=== PATIENT | male | born 1960 | race African-American/Black ===

== ENCOUNTER 2023-02-05 21:28 | Inpatient (IN) | payer OTHER, SELFPAY ==
--- OUTSIDE RECORDS SUMMARY | 2023-02-05 21:32 | XMS REPORT | Continuity of Care Document ---
Author Name Unknown Address [address] [facility] [address] [place] [address] [facility] Address [address] [facility] [address] [place] [address] Care Team Providers Care Senior Network Systems Engineer Name Role Phone Nori Elias Attending Clinician Unavailable Rico RUSSELL, Yohannes Luna Attending Clinician Doctor Unassigned, [place] [address] Attending Clinician U navailable Encounters Start Date/Time End Date/Time Encounter Type Admission Type Attending Clinicians Care Facility Care Department Encounter ID Source 2023-01-29 11:37:19 2023-01-29 11:37:19 Outpatient [facility] [id number] 2019-10-10 00:00:00 2019-10-10 00:00:00 Patient Outreach Nori Elias [facility] [id number] 2019-10-02 11:53:41 2019-10-02 12:26:55 Office Visit Yohannes Gómez [facility] [id number] 2019-10-02 00:00:00 2019-10-02 00:00:00 Orders Only Doctor Unassigned, [place] [facility] [facility] [id number]
[2023-02-05] MEDS ORDERED: HYDROCODONE/APAP 5/325 MG TAB ONE (21:41)
[2023-02-05 22:41] LABS: Absolute Lymphocytes (CBC) 1.6 K/uL (0.7-4.9); Hematocrit 31.2 % (39.6-49.0); MCV 82.7 fL (80-100); Platelets 167 thou/uL (152-406); RBC Red Blood Cell Count 3.77 M/uL (4.33-5.43)
[2023-02-05 22:43] LABS: ALT/SGPT 17 U/L (16-61); AST/SGOT 12 U/L (15-37); Albumin 3.1 g/dL (3.4-5.0); Alkaline Phosphatase 69 U/L (45-117); BUN Blood Urea Nitrogen 85 mg/dL (7-18); Bicarbonate 25 mEq/L (21-32); Bilirubin Total 0.3 mg/dL (0.2-1.0); Glomerular Filtration Rate 6 ml/min (=/>90); Glucose Level 84 mg/dL (74-106); Potassium 4.7 mEq/L (3.5-5.1); Protein, Total 7.2 g/dL (6.4-8.2); Sodium Level 140 mEq/L (136-145)
[2023-02-05 22:46] LABS: Bilirubin Direct < 0.1 mg/dL (0-0.2); Bilirubin Indirect, Calculated ND mg/dL (0.2-0.8)
[2023-02-05] MEDS ORDERED: HYDRALAZINE HCL 20 MG/ML VIAL ONE (23:14)
[2023-02-05] MEDS ORDERED: NA CHLORIDE 0.9% 1,000 ML ONE (23:15)
[2023-02-05 23:28] LABS: Creatine Phosphokinase 425 U/L (39-308); NT PRO-BNP 2988 pg/mL (<125)
[2023-02-05 23:31] LABS: C-Reactive Protein < 2.90 mg/L (<3.00)
[2023-02-05 23:33] LABS: Troponin High Sensitivity 248.5 pg/mL (<58.9)
--- NOTE | 2023-02-05 23:48 | ER ---
Nurse's Notes [facility] Name: Zander Melvin Age: 62 yrs Sex: Male : 1960 Arrival Date: 02/05/2023 Time: 21:28 Bed 5 Private MD: Diagnosis: Acute diastolic (congestive) heart failure;Facial lesion, Elevated Troponin, Hypertensive Emergency, Acute on chronic renal insufficiency Presentation: 02/05 21:37 Chief complaint: Patient states: lesion to face that has been there for 4 months but as6 tonight started bleeding. Coronavirus screen: At this time, the client does not indicate any symptoms associated with coronavirus-19. Ebola Screen: No symptoms or risks identified at this time. Initial Sepsis Screen: Does the patient meet any 2 criteria? No. Patient's initial sepsis screen is negative. Does the patient have a suspected source of infection? No. Patient's initial sepsis screen is negative. Risk Assessment: Do you want to hurt yourself or someone else? Patient reports no desire to harm self or others. Onset of symptoms was February 05, 2023. 21:37 Method Of Arrival: Ambulatory as6 21:37 Acuity: JAMES 3 as6 Historical: - Allergies: 21:39 No Known Allergies; as6 - PMHx: 21:39 Hypertensive disorder; as6 - PSHx: 21:39 None; as6 - Immunization history:: Adult Immunizations up to date. - Social history:: Smoking status: Patient reports the use of cigarette tobacco products, smokes one-half pack cigarettes per day. - Family history:: not pertinent. Screenin:26 [facility] ED Fall Risk Assessment (Adult) History of falling in the last 3 months, me1 including since admission No falls in past 3 months (0 pts) Confusion or Disorientation No (0 pts) Intoxicated or Sedated No (0 pts) Impaired Gait No (0 pts) Mobility Assist Device Used No (0 pt) Altered Elimination No (0 pt) Score/Fall Risk Level 0 - 2 = Low Risk Maintained a safe environment, Provided non-skid footwear, Hourly rounding (assess needs \T\ fall precautionary measures) done. Abuse screen: Denies threats or abuse. Nutritional screening: No deficits noted. Tuberculosis screening: No symptoms or risk factors identified. Assessment: 22:26 General: Appears comfortable, well developed, well nourished, Behavior is calm, me1 cooperative, appropriate for age, Reports lesion to left face that has been there for 4 month. States the lesion has grown more recently and today it started to bleed. Pain: Complains of pain in left jaw Pain does not radiate. Pain currently is 2 out of 10 on a pain scale. Quality of pain is described as throbbing, Pain began gradually, over the past 4 months. Neuro: Level of Consciousness is awake, alert, obeys commands, Oriented to person, place, time, situation, Appropriate for age. Cardiovascular: Capillary refill < 3 seconds Patient's skin is warm and dry. Respiratory: Airway is patent Respiratory effort is even, unlabored, Respiratory pattern is regular, symmetrical. Derm: lesion to left face, red, swollen, scant amount of bleeding noted. 02/06 00:00 Reassessment: Patient appears in no apparent distress at this time. No changes from [facility] previously documented assessment. Patient and/or family updated on plan of care and expected duration. Pain level reassessed. Patient is alert, oriented x 3, equal unlabored respirations, skin warm/dry/pink. 01:00 Reassessment: Patient appears in no apparent distress at this time. No changes from [facility] previously documented assessment. Patient and/or family updated on plan of care and expected duration. Pain level reassessed. Patient is alert, oriented x 3, equal unlabored respirations, skin warm/dry/pink. 02:00 Reassessment: Patient appears in no apparent distress at this time. Patient and/or jw7 family updated on plan of care and expected duration. Pain level reassessed. Patient is alert, oriented x 3, equal unlabored respirations, skin warm/dry/pink. 03:00 Reassessment: Patient appears in no apparent distress at this time. Patient and/or jw7 family updated on plan of care and expected duration. Pain level reassessed. Patient is alert, oriented x 3, equal unlabored respirations, skin warm/dry/pink. 04:00 Reassessment: Patient appears in no apparent distress at this time. Patient and/or jw7 family updated on plan of care and expected duration. Pain level reassessed. Patient is alert, oriented x 3, equal unlabored respirations, skin warm/dry/pink. 05:00 Reassessment: Patient appears in no apparent distress at this time. Patient and/or jw7 family updated on plan of care and expected duration. Pain level reassessed. Patient is alert, oriented x 3, equal unlabored respirations, skin warm/dry/pink. 06:09 Reassessment: Patient appears in no apparent distress at this time. Patient and/or jw7 family updated on plan of care and expected duration. Pain level reassessed. Patient is alert, oriented x 3, equal unlabored respirations, skin warm/dry/pink. Vital Signs: 02/05 21:37 Pulse 67; Resp 18 S; Temp 98.8(TE); Pulse Ox 97% on R/A; Weight 104.33 kg (R); Height 5 as6 ft. 11 in. (R); Pain 7/10; 21:39 BP 218 / 125; as6 23:05 BP 225 / 112; Pulse 51; Resp 17; Pulse Ox 100% ; jj7 02/06 00:00 BP 222 / 102; Pulse 58; Resp 16 S; Pulse Ox 99% on R/A; jw7 01:15 BP 158 / 89; Pulse 60; Resp 18 S; Pulse Ox 98% on R/A; jw7 02:00 BP 208 / 95; Pulse 78; Resp 20 S; Pulse Ox 96% on R/A; jw7 02/05 21:37 Body Mass Index 32.08 (104.33 kg, 180.34 cm) as6 02/05 21:37 Pain Scale: Adult as6 Keira Coma Score: 01:58 Eye Response: spontaneous(4). Motor Response: obeys commands(6). Verbal Response: sp4 oriented(5). Total: 15. NIH Stroke Scale Scores: 01:58 NIHSS Score: 0 sp4 ED Course: 02/05 21:31 Patient arrived in ED. jj6 21:32 Vin Washburn MD is Attending Physician. sp4 21:39 Triage completed. as6 21:39 Arm band placed on. as6 21:49 Basic Metabolic Panel Sent. as6 21:49 CBC with Diff Sent. as6 21:49 LFT's Sent. as6 21:49 Inserted saline lock: 20 gauge in right antecubital area, using aseptic technique. as6 Blood collected. 22:13 Melvi Medina, RN is Primary Nurse. me1 22:26 Patient has correct armband on for positive identification. Bed in low position. Call me1 light in reach. Side rails up X 1. Provided Education on: POC. Verbalized understanding.. 22:26 No provider procedures requiring assistance completed. me1 23:05 Soft Tissue Neck Wo Contr In Process Unspecified. EDMS 23:06 Facial Bones W/ Mpr In Process Unspecified. EDMS 23:35 Notified ED physician of a critical lab result(s). troponin 248.5. Notified Dr radha Washburn. 23:44 Bijan Oliva MD is Hospitalizing Provider. sp4 23:49 Urinalysis W/Microscopic Sent. me1 02/06 00:05 Chest Single View XRAY In Process Unspecified. EDMS 03:19 Slides for Pathologist Review Sent. jw7 03:20 Repeat lab(s) drawn. by wv, sent to lab. jw7 06:16 Patient admitted, IV remains in place. jw7 Administered Medications: 02/05 21:44 Drug: HYDROcodone-acetaminophen PO 5 mg-325 mg 2 tabs PO once Route: PO; as6 22:25 Follow up: Response: No adverse reaction; Pain is decreased me1 23:18 Drug: NS 0.9% IV 1000 ml IV at 1 bolus Per protocol; 1000 mL bolus Route: IV; Rate: 1 jj7 bolus; Site: right antecubital; 02/06 06:17 Follow up: IV Status: Completed infusion; IV Intake: 1000ml jw7 02/05 23:19 Drug: hydrALAZINE IVP 20 mg IVP once Route: IVP; Site: right antecubital; jj7 02/06 00:48 Drug: Aspirin PO Chewable Tablet 324 mg PO once; 81 mg tablets x 4 Route: PO; jw7 06:17 Follow up: Response: No adverse reaction jw7 00:48 Drug: amLODIPine PO 10 mg PO once Route: PO; jw7 06:17 Follow up: Response: No adverse reaction jw7 00:48 Drug: niCARdipine IV 5 mg/hr IV at calculated rate See Administration Instructions; jw7 (Standard concentration 25 mg / 250 mL NS); Recommended max rate 15 mg/hr; Titrate 2.5 mg/hr as often as every 15 minutes to achieve goal (see titration policy); Goal parameter SBP less than 160 mmHg Route: IV; Rate: calculated rate; Site: right antecubital; 06:17 Follow up: Response: No adverse reaction; IV Status: Infusion continued upon admission; jw7 IV Intake: 200ml 01:31 Drug: Lidocaine Infiltration (1 %) 20 ml 20 ml Infiltration once; to bedside Volume: 20 jw7 ml; Route: Infiltration; 06:18 Follow up: Response: No adverse reaction jw7 Medication: 02/05 22:26 VIS not applicable for this client. me1 Intake: 02/06 06:17 IV: 1000ml; Total: 1000ml. jw7 06:17 IV: 200ml; Total: 1200ml. jw7 Outcome: 02/05 23:47 Decision to Hospitalize by Provider. sp4 02/06 06:16 Admitted to ICU accompanied by nurse, via stretcher, room 2, on monitor, with chart, jw7 Condition: stable Instructed on the need for admit, Demonstrated understanding of instructions, 06:18 Patient left the ED. jw7 NIH Stroke Scale - NIH Stroke Score Date: 02/06/2023 Time: 01:58 Total Score = 0 10. Dysarthria (speech clarity - read or repeat words) - 0(Normal) 11. Extinction and Inattention (visual/tactile/auditory/spatial/personal) - 0(No abnormality) 1a. Level of Consciousness (LOC) - 0(Alert) 1b. Level of Consciousness (LOC) (Month \T\ Age) - 0(Both) 1c. LOC Commands (Open \T\ Closes Eyes/Siebel Developer) - 0(Both) 2. Best Gaze (Lateral Gaze Paresis) - 0(Normal) 3. Visual Field Loss - 0(No visual loss) 4. Facial Palsy - 0(Normal) 5a. Left Arm: Motor (10-second hold) - 0(No drift) 5b. Right Arm: Motor (10-second hold) - 0(No drift) 6a. Left Leg: Motor (5-second hold - always test supine) - 0(No drift) 6b. Right Leg: Motor (5-second hold - always test supine) - 0(No drift) 7. Limb Ataxia (finger/nose \T\ heel/chinchilla - test with eyes open) - 0(Absent) 8. Sensory Loss (pinprick arms/legs/face) - 0(Normal) 9. Best Language: Aphasia (description/naming/reading) - 0(No aphasia) Initials: sp4 Signatures: Dispatcher [employer] ED Adina Teresa jj6 Dale Perera RN RN as6 Iris Chow RN RN jw7 Dax Parsons RN RN jj7 Vin Washburn MD MD sp4 Melvi Medina RN RN me1 Corrections: (The following items were deleted from the chart) 02/05 22:26 21:37 Chief complaint: Patient states: lesion to face that has been there for 4 me1 months but tonight started bleeding as6 02/06 01:40 01:37 General: Systolic BP 158, decreased . jw7 jw7 06:08 01:37 General: Systolic BP 158, decreased niCARdipine drip to 2.5mg/hr, jw7 Provider notified. . jw7
--- NOTE | 2023-02-05 23:48 | EDPHYS ---
Physician Documentation [facility] Name: Zander Melvin Age: 62 yrs Sex: Male : 1960 Arrival Date: 02/05/2023 Time: 21:28 Bed 5 Private MD: ED Physician Vin Washburn HPI: 02/05 21:32 This 62 yrs old Black Male presents to ER via Unassigned with complaints of Abscess. sp4 23:47 82-year-old male presents with complaint of left facial lesion. Patient states left sp4 facial moderate size lesion has been present for the past 4 months. Patient did see a medical professional in the past at a clinic locally and was informed that this this cannot be resected at the clinic. On presentation patient also has elevated blood pressure 25/112. Patient states that he has not been managing his blood pressure for several years . . Historical: - Allergies: 21:39 No Known Allergies; as6 - PMHx: 21:39 Hypertensive disorder; as6 - PSHx: 21:39 None; as6 - Immunization history:: Adult Immunizations up to date. - Social history:: Smoking status: Patient reports the use of cigarette tobacco products, smokes one-half pack cigarettes per day. - Family history:: not pertinent. ROS: 23:47 Constitutional: Negative for fever, chills, and weight loss, positive for left facial sp4 lesion, positive for uncontrolled blood pressure. 23:47 All other systems are negative, Exam: 23:47 Constitutional: This is a well developed, well nourished patient who is awake, alert, sp4 and in no acute distress. Head/Face: Normocephalic, atraumatic. 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 There is some tissue fluid leakage from the lesion. Lesion is friable and easily leaks tissue fluid in small amounts Eyes: Pupils equal round and reactive to light, extra-ocular motions intact. Lids and lashes normal. Conjunctiva and sclera are not injected. Cornea within normal limits. Periorbital areas with no swelling, redness, or edema. ENT: Nares patent. No nasal discharge, no septal abnormalities noted. Tympanic membranes are normal and external auditory canals are clear. Oropharynx with no redness, swelling, or masses, exudates, or evidence of obstruction, uvula midline. Mucous membranes moist. Neck: Trachea midline, no thyromegaly or masses palpated, and no cervical lymphadenopathy. Supple, full range of motion without nuchal rigidity, or vertebral point tenderness. Chest/axilla: Normal chest wall appearance and motion. Nontender with no deformity. No lesions are appreciated. Cardiovascular: Regular rate and rhythm with a normal S1 and S2. No gallops, murmurs, or rubs. Normal PMI, no JVD. No pulse deficits. Respiratory: Lungs have equal breath sounds bilaterally, clear to auscultation and percussion. No rales, rhonchi or wheezes noted. No increased work of breathing, no retractions or nasal flaring. Abdomen/GI: Soft, non-tender, with normal bowel sounds. No distension or tympany. No guarding or rebound. No evidence of tenderness throughout. Back: No spinal tenderness. No costovertebral tenderness. Skin: Warm, dry with normal turgor. Normal color with no rashes, no lesions, and no evidence of cellulitis. MS/ Extremity: Pulses equal, no cyanosis. Neurovascular intact. Full, normal range of motion. Neuro: Awake and alert, GCS 15, oriented to person, place, time, and situation. Cranial nerves II-XII grossly intact. Motor strength 5/5 in all extremities. Sensory grossly intact. Psych: Awake, alert, with orientation to person, place and time. Behavior, mood, and affect are within normal limits 02/06 01:58 ECG was reviewed by the Attending Physician. 00;05 there is sinus bradycardia at the sp4 rate of 54, no ST elevation or depression, left ventricular hypertrophy Vital Signs: 02/05 21:37 Pulse 67; Resp 18 S; Temp 98.8(TE); Pulse Ox 97% on R/A; Weight 104.33 kg (R); Height 5 as6 ft. 11 in. (R); Pain 08/21; 21:39 BP 218 / 125; as6 23:05 BP 225 / 112; Pulse 51; Resp 17; Pulse Ox 100% ; jj7 02/06 00:00 BP 222 / 102; Pulse 58; Resp 16 S; Pulse Ox 99% on R/A; jw7 01:15 BP 158 / 89; Pulse 60; Resp 18 S; Pulse Ox 98% on R/A; jw7 02:00 BP 208 / 95; Pulse 78; Resp 20 S; Pulse Ox 96% on R/A; jw7 02/05 21:37 Body Mass Index 32.08 (104.33 kg, 180.34 cm) as6 02/05 21:37 Pain Scale: Adult as6 NIH Stroke Scale Scores: 01:58 NIHSS Score: 0 sp4 [place]e Coma Score: 01:58 Eye Response: spontaneous(4). Motor Response: obeys commands(6). Verbal Response: sp4 oriented(5). Total: 15. Procedures: 01:36 Performed Removal of left facial tumor. . 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 Tumor potentially cancerous. The tumor is friable and is losing tissue fluid. Patient has consented to surface portion of the tumor removal without root removal. Patient was advised that tumor potentially has a rolled under the skin which needs to be resected later by plastic surgeon. Patient willingly requested removal of the surface portion of the tumor. Patient was given written consent. Patient was prepped and draped in sterile fashion. The area around the stalk was anesthetized with lidocaine 1% without epinephrine. The left side of the patient's rivas was trimmed with clippers. The stalk was tied off with silk suture 3-0. The tumor was removed with scalpel. The stalk itself was resected. Small skin laceration 1 cm long was then sutured with 3-0 silk sutures x 4 simple interrupted sutures. Good cosmetic result. Tumor was labeled in a specimen cup and sent to pathology. Tolerated procedure without complications. . MDM: 02/05 21:32 Patient medically screened. sp4 23:55 Differential diagnosis: abscess, allergic reaction, cellulitis, insect bite. Data sp4 reviewed: vital signs, nurses notes, lab test result(s), EKG, radiologic studies, CT scan, plain films. 02/06 01:36 Consideration of Admission/Observation Patient was admitted/placed on observation. sp4 Escalation of care including admission/observation considered. Management of patient was discussed with the following: Hospitalist: Discussed with Dr. Oliva being hospitalist. Discussed also with Dr. Riddle Wrecking Crane Engine Operator who accepted patient for consult. Discussed with Dr. Dorota Javier with Nephrology who will see patient in the morning.. ED course: Patient warrants ICU admission on nicardipine infusion. . 02/05 21:39 Order name: Basic Metabolic Panel; Complete Time: 22:55 sp4 02/05 21:39 Order name: CBC with Diff [facility] 02/05 21:39 Order name: LFT's; Complete Time: 22:55 4 02/05 22:57 Order name: Urinalysis W/Microscopic [facility] 02/05 23:02 Order name: BNP; Complete Time: 23:34 4 02/05 23:02 Order name: Troponin High Sensitivity; Complete Time: 23:34 4 02/05 23:02 Order name: CK; Complete Time: 23:34 4 02/05 23:02 Order name: CRP; Complete Time: 23:34 [facility] 02/05 23:09 Order name: T4 Free; Complete Time: 23:34 [facility] 02/05 23:09 Order name: Thyroid Stimulating Hormone; Complete Time: 23:34 [facility] 02/06 01:50 Order name: Basic Metabolic Panel [facility] 02/06 01:50 Order name: Basic Metabolic Panel [facility] 02/06 01:50 Order name: CBC with Automated Diff [facility] 02/06 01:50 Order name: CBC with Automated Diff [facility] 02/06 01:50 Order name: Magnesium [facility] 02/06 01:50 Order name: Magnesium [facility] 02/06 01:50 Order name: Phosphorus [facility] 02/06 01:50 Order name: Phosphorus [facility] 02/06 01:50 Order name: Troponin High Sensitivity [facility] 02/06 01:50 Order name: Troponin High Sensitivity [facility] 02/06 01:50 Order name: Troponin High Sensitivity [facility] 02/06 01:50 Order name: Troponin High Sensitivity [facility] 02/06 02:11 Order name: Slides for Pathologist Review [facility] 02/05 23:03 Order name: Facial Bones W/ Mpr [facility] 02/05 23:05 Order name: Soft Tissue Neck Wo Contr [facility] 02/05 23:55 Order name: Chest Single View XRAY [facility] 02/06 01:54 Order name: Renal Ultrasound-Complete [facility] 02/05 23:02 Order name: EKG; Complete Time: 23:03 [facility] 02/06 01:50 Order name: CONS Physician Consult [facility] 02/06 02:00 Order name: Cytology Orders [facility] 02/05 21:39 Order name: IV Saline Lock; Complete Time: 21:49 sp4 02/05 21:39 Order name: Labs collected and sent; Complete Time: 21:49 sp4 02/05 21:39 Order name: O2 Per Protocol; Complete Time: 22:30 sp4 02/05 21:39 Order name: O2 Sat Monitoring; Complete Time: 22:30 sp4 02/05 23:02 Order name: EKG - Nurse/Tech; Complete Time: 00:10 sp4 02/06 00:06 Order name: Dressing - Wound; Complete Time: 01:4 02/06 00:06 Order name: Gloves, Sterile; Complete Time: 01: sp4 02/06 00:06 Order name: Setup Suture Tray; Complete Time: : sp4 02/06 00:08 Order name: Surgical Consent; Complete Time: 00:48 sp4 EC:58 Rate is 54 beats/min. Rhythm is regular, Sinus bradycardia. QRS [place] is Normal. [place] sp4 interval is normal. QRS interval is normal. QT interval is normal. No Q waves. T waves are Normal. No ST changes noted. Clinical impression: No evidence of ischemia. Interpreted by me. Reviewed by me. Administered Medications: 02/05 21:44 Drug: HYDROcodone-acetaminophen PO 5 mg-325 mg 2 tabs PO once Route: PO; as6 22:25 Follow up: Response: No adverse reaction; Pain is decreased me1 23:18 Drug: NS 0.9% IV 1000 ml IV at 1 bolus Per protocol; 1000 mL bolus Route: IV; Rate: 1 jj7 bolus; Site: right antecubital; 02/06 06:17 Follow up: IV Status: Completed infusion; IV Intake: 1000ml jw7 02/05 23:19 Drug: hydrALAZINE IVP 20 mg IVP once Route: IVP; Site: right antecubital; jj7 02/06 00:48 Drug: Aspirin PO Chewable Tablet 324 mg PO once; 81 mg tablets x 4 Route: PO; jw7 06:17 Follow up: Response: No adverse reaction jw7 00:48 Drug: amLODIPine PO 10 mg PO once Route: PO; jw7 06:17 Follow up: Response: No adverse reaction jw7 00:48 Drug: niCARdipine IV 5 mg/hr IV at calculated rate See Administration Instructions; jw7 (Standard concentration 25 mg / 250 mL NS); Recommended max rate 15 mg/hr; Titrate 2.5 mg/hr as often as every 15 minutes to achieve goal (see titration policy); Goal parameter SBP less than 160 mmHg Route: IV; Rate: calculated rate; Site: right antecubital; 06:17 Follow up: Response: No adverse reaction; IV Status: Infusion continued upon admission; jw7 IV Intake: 200ml 01:31 Drug: Lidocaine Infiltration (1 %) 20 ml 20 ml Infiltration once; to bedside Volume: 20 jw7 ml; Route: Infiltration; 06:18 Follow up: Response: No adverse reaction jw7 Disposition Summary: 02/05/23 23:47 Hospitalization Ordered Notes: Hospitalization Status: Inpatient Admission sp4 Provider: Bijan Oliva4 Location: Intensive Care Unit sp4 Condition: Serious sp4 Problem: new sp4 Symptoms: have improved sp4 Bed/Room Type: Standard sp4 Room Assignment: 2-(02/06/23 04:32) rv1 Diagnosis - Acute diastolic (congestive) heart failure sp4 - Facial lesion, Elevated Troponin, Hypertensive Emergency, Acute on chronic renal sp4 insufficiency Forms: - Medication Reconciliation Form sp4 - SBAR form sp4 - Leadership Thank You Letter sp4 NIH Stroke Scale - NIH Stroke Score Date: 02/06/2023 Time: 01:58 Total Score = 0 10. Dysarthria (speech clarity - read or repeat words) - 0(Normal) 11. Extinction and Inattention (visual/tactile/auditory/spatial/personal) - 0(No abnormality) 1a. Level of Consciousness (LOC) - 0(Alert) 1b. Level of Consciousness (LOC) (Month \T\ Age) - 0(Both) 1c. LOC Commands (Open \T\ Closes Eyes/Mat Inspector) - 0(Both) 2. Best Gaze (Lateral Gaze Paresis) - 0(Normal) 3. Visual Field Loss - 0(No visual loss) 4. Facial Palsy - 0(Normal) 5a. Left Arm: Motor (10-second hold) - 0(No drift) 5b. Right Arm: Motor (10-second hold) - 0(No drift) 6a. Left Leg: Motor (5-second hold - always test supine) - 0(No drift) 6b. Right Leg: Motor (5-second hold - always test supine) - 0(No drift) 7. Limb Ataxia (finger/nose \T\ heel/chinchilla - test with eyes open) - 0(Absent) 8. Sensory Loss (pinprick arms/legs/face) - 0(Normal) 9. Best Language: Aphasia (description/naming/reading) - 0(No aphasia) Initials: sp4 Signatures: Dispatcher [employer] EDMS Dale Perera RN RN as6 Iris Chow RN RN jw7 Dax Parsons RN RN jj7 Teresita Baca rv1 Vin Washburn MD MD sp4 Melvi Medina RN me1 Corrections: (The following items were deleted from the chart) 02/05 23:03 21:39 Facial Bones W/ Con \T\ MPR+CT.RAD.BRZ ordered. EDMS EDMS 23:05 21:40 Soft Tissue Neck W/Contr+CT.RAD.BRZ ordered. EDMS EDMS 23:06 23:05 THYROID STIMULAT HORMONE+C.LAB.BRZ ordered. EDMS EDMS 23:06 23:05 T4 FREE+C.LAB.BRZ ordered. EDMS EDMS 02/06 02:11 02:00 Slides for Pathologist Review ordered. EDMS EDMS 04:32 02/05 23:47 sp4 rv1
[2023-02-06 00:18] LABS: Specific Gravity 1.015 (1.005-1.030); Urine Bacteria <20 /HPF (<20); Urine Bilirubin NEGATIVE (Negative); Urine Blood 3+ (OVER) (Negative); Urine Clarity Clear (Clear); Urine Color Light-Yellow (Yellow); Urine Glucose NEGATIVE (Negative); Urine Protein 3+ (Negative); Urine RBC 21-50 /HPF (None Seen); Urine Urobilinogen Normal (Normal)
[2023-02-06] MEDS ORDERED: ASPIRIN 81 MG CHEWABLE TABLET ONE (00:28)
[2023-02-06] MEDS ORDERED: LIDOCAINE 1% 20 ML MDV ONE (00:28)
[2023-02-06] MEDS ORDERED: NA CHLORIDE 0.9% 0 ML ONE (00:29)
[2023-02-06] MEDS ORDERED: NICARDIPINE HCL 25 MG/10 ML IV ONE (00:29)
[2023-02-06] MEDS ORDERED: AMLODIPINE 10 MG TAB ONE (00:29)
[2023-02-06] MEDS ORDERED: ONDANSETRON 4 MG/2 ML VIAL IV PRN (01:43)
--- NOTE | 2023-02-06 01:59 | P.HP ---
Certification for Inpatient With expected LOS: >2 Midnights Practitioner: I am a practitioner with admitting privileges, knowledge of patient current condition, hospital course, and medical plan of care. Services: Services provided to patient in accordance with Admission requirements found in Title 42 Section 412.3 of the Code of Federal Regulations Patient History Date of Service: 02/06/23 Reason for admission: Hypertension, renal failure History of Present Illness: 62-year-old male patient with no known medical problems presented to the emergency department with lump over left side of his face Patient is a poor historian, does not have established care as an outpatient Presented to the emergency department today with complaints of lump on the left side of the face. As per the patient it first appeared approximately 4 months back. Gradually increasing in size No history of any trauma, denies any pain. No fever or chills The patient was evaluated in the ED A CT scan of the facial bones was done which showed a superficial mass Was found to have elevated blood pressures with systolic blood pressure of greater than 200 mmHg He also found to have renal failure with creatinine of 8.1. Patient was given IV hydralazine, oral Norvasc but the blood pressure is still high. He was started on Cardene drip. Lesion on the left side of the face was excised by the ED attending. Allergies No Known Allergies Allergy (Unverified 06/29/14 13:48) Review of Systems General: Unremarkable Eyes: Unremarkable ENT: Unremarkable Respiratory: Unremarkable Cardiovascular: Unremarkable Gastrointestinal: Unremarkable Genitourinary: Unremarkable Musculoskeletal: Unremarkable Integumentary: Lesions Neurological: Unremarkable Physical Examination - Physical Exam General: Alert, In no apparent distress HEENT: Normocephalic, PERRLA Neck: Supple, JVD not distended Respiratory: Clear to auscultation bilaterally, Normal air movement Cardiovascular: No edema, Normal pulses Gastrointestinal: Soft and benign, Non-distended Musculoskeletal: No swelling, No erythema Integumentary: Other Neurological: Normal speech, Normal tone - Studies Laboratory Data (last 24 hrs) 02/05/23 02/05/23 21:48 21:48 WBC 5.00 Hgb 10.2 L Hct 31.2 L Plt Count 167 Sodium 140 Potassium 4.7 BUN 85 H Creatinine 8.51 H Glucose 84 Total Bilirubin 0.3 AST 12 L ALT 17 Alkaline Phosphatase 69 Assessment and Plan - Problems (Diagnosis) (1) Hypertensive emergency Current Visit: Yes Status: Acute (2) Renal failure Current Visit: Yes Status: Acute (3) Elevated troponin Current Visit: Yes Status: Acute (4) Lump on face Current Visit: Yes Status: Acute (5) Obesity Current Visit: Yes Status: Acute - Advance Directives Does patient have a Living Will: No Does patient have a Durable POA for Healthcare: No Assessment/Plan Patient Problems/Diagnoses: Patient Problems: Elevated troponin (Acute) R79.89 Hypertensive emergency (Acute) I16.1 Lump on face (Acute) R22.0 Obesity (Acute) E66.9 Renal failure (Acute) N19 Assessment: Patient Problems: Elevated troponin (Acute) R79.89 Hypertensive emergency (Acute) I16.1 Lump on face (Acute) R22.0 Obesity (Acute) E66.9 Renal failure (Acute) N19 Plan: 62-year-old male with no known medical problems, no established outpatient care initially presented to the emergency department with complaints of lump over the left side of his face There is a pedunculated mass approximately 3 to 4 cm in diameter over the left side of the face with oozing. CT scan of the facial bones showed a superficial mass. Was found to be hypertensive with systolic blood pressure greater than 200 mmHg, renal failure with a creatinine of 8.1. ASSESSMENT Hypertensive emergency Renal failure-likely progression of chronic kidney disease to CKD stage V Elevated troponin-no chest pain, likely nonspecific in the setting of renal failure Lump over left side of the face-? Pyogenic granuloma Obesity PLAN Patient will be admitted to the ICU Continue Cardene drip that was started in the ED Start the patient on Procardia XL 60 mg p.o. daily, labetalol 200 mg p.o. twice daily Hydralazine 10 mg IV every 6 hours as needed Patient's creatinine is elevated, normal potassium, no acidosis. Most likely progression of chronic kidney disease Will obtain ultrasound of the kidneys to rule out obstructive uropathy Nephrology consult Elevated troponin, no chest pain. Likely nonspecific in the setting of renal failure. Repeat troponin every 8 hours x 3 Lump on the left side of the face was excised in the ED. Follow-up histopathology. Will need outpatient follow-up
[2023-02-06] MEDS ORDERED: Nicardipine in Saline, Iso-Osm 20 MG/200 ML IV.SOLN. IV SCH (02:00)
[2023-02-06] MEDS ORDERED: NA CHLORIDE 0.9% 1,000 ML IV SCH (02:00)
[2023-02-06] MEDS: NICARDIPINE HCL 25 MG in NA CHLORIDE 0.9% 240 ML IV SCH ×3 (07:37→19:54)
[2023-02-06] MEDS ORDERED: NIFEDIPINE XL 60 MG TABLET PO SCH (09:00)
[2023-02-06] MEDS: HEPARIN 5000 UNIT/ML 1 ML VIAL SQ SCH ×2 (09:15→18:00)
[2023-02-06] MEDS ORDERED: LABETALOL HCL 100 MG TAB ONE (09:22)
[2023-02-06] MEDS: LABETALOL HCL 100 MG TAB PO SCH ×2 (09:25→22:45)
--- NOTE | 2023-02-06 09:26 | P.CNS ---
Date of Consult: 02/06/23 Reason for Consult: Renal failure, hypertensive urgency Requesting Physician: Bijan Oliva Chief Complaint: Hypertension, renal failure History of Present Illness: Pt is a 62-year-old AA male patient with a hx of chronic malignant HTN for many years with poor control, OP follow up who acknowledges a hx of hypertensive complications including prior CVAs without mention of neurologic deficits and acknowledges being told of renal insufficiency on prior admission at [facility] but does not know stage of CKD or baseline GFR. Pt reports last admission was several months ago for uncontrolled HTN and was sent out with a 30 day supply of BP meds but then ran out and did not have access to a refill. He does not follow with a Auto Damage Appraiser or PCP. He came in through the ER yesterday with lump over left lower side of his face that had been present for a few months and was excised by the ER physician. He was found to have hypertensive emergency and renal failure. He denies CP, dyspnea, N/V/abdominal pain or MCMAHAN currently. He is producing urine. He does acknowledge chronic LE edema. Allergies No Known Allergies Allergy (Unverified 06/29/14 13:48) Home Medications: NK [No Home Meds] 02/06/23 - Past Medical/Surgical History -: HTN - Social History Smoking Status: Current every day smoker Place of Residence: Home Review of Systems General: Unremarkable Eyes: Unremarkable ENT: Unremarkable Respiratory: Unremarkable Cardiovascular: Edema, As per HPI Gastrointestinal: Unremarkable Genitourinary: Unremarkable Musculoskeletal: Unremarkable Integumentary: As per HPI Neurological: As per HPI Physical Examination Temp Pulse Resp BP Pulse Ox 97.9 F 69 15 165/86 H 96 02/06/23 07:00 02/06/23 07:45 02/06/23 07:45 02/06/23 07:45 02/06/23 07:45 General: Alert, In no apparent distress, Cooperative HEENT: Atraumatic, Normocephalic, Other (Lt lower mandibular lesion resected, suture present, some surrounding induration/firm swelling remains, small lump above left eyebrow as well) Neck: Supple Respiratory: Normal air movement, Other (No rhonchi) Cardiovascular: Regular rate/rhythm, Edema Gastrointestinal: Soft and benign, Non-distended, No tenderness Musculoskeletal: No tenderness, No warmth Integumentary: No rashes Neurological: Normal speech, Normal tone, Normal affect Laboratory Data (last 24 hrs) 02/05/23 02/05/23 21:48 21:48 WBC 5.00 Hgb 10.2 L Hct 31.2 L Plt Count 167 Sodium 140 Potassium 4.7 BUN 85 H Creatinine 8.51 H Glucose 84 Total Bilirubin 0.3 AST 12 L ALT 17 Alkaline Phosphatase 69 Conclusions/Impression: A/P) 1. Abnormal results of kidney function studies. Sub-acute Stage III ARF on underlying CKD NOS vs progressive, advanced CKD. Will need to review [facility] records given reports of prior admissions there. 2. 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 UA shows active sediment with dipstick proteinuria and microscopic hematuria both of which could be seen with renal sclerosis and hypertensive arteriosclerosis. 3. Will follow up ordered renal ultrasound. Pt is non oliguric. 4. Will order spot urine studies to further quantify proteinuria. 5. No emergent indication for LOAN BROKER this AM as electrolyte and acid base chemistries acceptable (on labs last night, repeat pending) and while CXR abnormal and pt does have peripheral edema, he is clinically stable. Did however discuss indications for initiation of HD if his GFR remains this low and pt understands and consents to placement of a TDC and initiation of HD on this admission if required. 6. Cont nicardine gtt for hypertensive emergency, SBP has improved by 25%, wean as tolerated. Will re-time PO CCB for this evening as on drip. Will start PO hydralazine and IV lasix. 7. Non selective beta karyna ordered by primary team, pt does have troponin leak/NSTEMI without active CP. He admits to recent crack coccaine use but literature has shown beta karyna use generally not to be assoc with clinical adverse outcomes in large meta analyses. Defer to primary team and Cardiology to further address. There are several other explanations for the troponin leak including elevated BP and renal failure. Fito Alvarenga MD, ZOILA
[2023-02-06] MEDS: FUROSEMIDE 20 MG/ 2ML VIAL IV SCH ×2 (09:27→19:55)
[2023-02-06] MEDS: HYDRALAZINE HCL 25 MG TABLET PO SCH ×2 (09:27→19:55)
[2023-02-06 10:18] LABS: Albumin 2.8 g/dL (3.4-5.0); Phosphorus 4.8 mg/dL (2.5-4.9); Potassium 4.3 mEq/L (3.5-5.1)
[2023-02-06 10:53] LABS: UR MICROALBUMIN 92.3 mg/dL (< 1.9)
[2023-02-06] MEDS ORDERED: INFLUENZA VACCINE (for 6+ mo) 0.5 ML DOSE IMVAC ONE (12:00)
--- NOTE | 2023-02-06 15:50 | RAD REPORT ---
EXAM DESCRIPTION: CT - Facial Bones W/ Mpr - 02/06/2023 7:58 am CLINICAL HISTORY: The patient is 62 years old and is Male; left facial tumor Bed: TECHNIQUE: Axial computed tomography images of the face without intravenous contrast. Sagittal and coronal reformatted images were created and reviewed. This CT exam was performed using one or more of the following dose reduction techniques: automated exposure control, adjustment of the mA and/o r kV according to patient size, and/or use of iterative reconstruction technique. COMPARISON: No relevant prior studies available. FINDINGS: BONES/JOINTS: No acute fracture. No suspicious lytic or blastic bone lesions. No periosteal reaction. SOFT TISSUES: Pedunculated 3 x 2.8 x 3.7 cm mass (AP by transverse by craniocaudal) extending from the left perimandibular cutaneous and subcutaneous tissues, suboptimally evaluated in the absence of multiphase contrast. Mass appears largely homogenous, with several peripheral hypodense foci and a ti ny focus of internal gas (axial image 19/94). Well-circumscribed 1.4 x 1.2 x 1.1 cm (transverse by craniocaudal by AP) homogenous fatty mas s with tiny focus of peripheral calcification demonstrated in the left supraorbital subcutaneous tiss ues, favoring a lipoma (mean Hounsfield units = -16.7). LYMPH NODES: Allowing for lack of intravenous contrast, no suspicious visualized lymphadenopathy. N o additional suspicious soft tissue or osseous masses or lesions. ORBITS: Unremarkable SINUSES: Mucosal thickening noted in the right maxillary sinus and bilateral ethmoid air cells. No air-fluid levels. IMPRESSION: 1. Pedunculated 3 x 2.8 x 3.7 cm mass (AP x TR x CC) extending from the left perimandi bular cutaneous and subcutaneous tissues, suboptimally evaluated in the absence of multiphase contras t. Mass appears largely homogenous, with several peripheral hypodense foci and a tiny focus of commander internal affairs al gas. Recommend dermatological consultation. Consider further evaluation by multiphase contrasted C T or MRI for further evaluation by ultrasound or tissue sampling as clinically indicated. 2. Well-circumscribed 1.4 x 1.2 x 1.1 cm homogenous fatty mass with tiny focus of peripheral calcif ication demonstrated in the left supraorbital subcutaneous tissues, favoring a lipoma. Recommend clin ical correlation with tenderness to palpation, mobility, and chronicity/stability. Electronically signed by: Isaac Novak MD 02/05/2023 11:39 PM SUPERVISOR PHOSPHORUS PROCESSING Due to temporary technical issues with the PACS/Fluency reporting system, reports are being signed by the in house radiologists without review as a courtesy to insure prompt reporting. The interpreting radiologist is fully responsible for the content of the report.
--- NOTE | 2023-02-06 15:52 | RAD REPORT ---
EXAM DESCRIPTION: CT - Soft Tissue Neck Wo Contr - 02/06/2023 7:59 am CLINICAL HISTORY: The patient is 62 years old and is Male; left facial tumor Bed:7 TECHNIQUE: Axial computed tomography images of the neck without intravenous contrast. Sagittal and coronal reformatted images were created and reviewed. This CT exam was performed using one or more of the following dose reduction techniques: automated exposure control, adjustment of the mA and/o r kV according to patient size, and/or use of iterative reconstruction technique. COMPARISON: No relevant prior studies available. FINDINGS: OROPHARYNX: Unremarkable No significant tonsillar enlargement. HYPOPHARYNX: Unremarkable LARYNX: Unremarkable Normal epiglottis. TRACHEA: Unremarkable RETROPHARYNGEAL SPACE: Unremarkable SUBMANDIBULAR/PAROTID GLANDS: Unremarkable Glands are normal in size. THYROID: Unremarkable No enlarged or calcified nodules. BONES/JOINTS: Multilevel cervical spondylosis with straightening of the cervical spine as the patie nt is positioned. No acute fracture. No suspicious lytic or blastic bone lesions. No periosteal reaction. SOFT TISSUES: Pedunculated 3 x 2.8 x 3.7 cm mass (AP by transverse by craniocaudal) extending from the left perimandibular cutaneous and subcutaneous tissues, suboptimally evaluated in the absence of multiphase contrast. Mass appears largely homogenous, with several peripheral hypodense foci and a ti ny focus of internal gas (axial image 19/94). Well-circumscribed 1.4 x 1.2 x 1.1 cm (transverse by craniocaudal by AP) homogenous fatty mas s with tiny focus of peripheral calcification demonstrated in the left supraorbital subcutaneous tiss ues, favoring a lipoma (mean Hounsfield units = -16.7). VASCULATURE: No acute findings. LYMPH NODES: Allowing for lack of intravenous contrast, no suspicious visualized lymphadenopathy. N o additional suspicious soft tissue or osseous masses or lesions. SINUSES: Mucosal thickening noted in the right maxillary sinus and bilateral ethmoid air cells. LUNG APICES: Unremarkable as visualized. IMPRESSION: 1. Pedunculated 3 x 2.8 x 3.7 cm mass (AP x TR x CC) extending from the left perimandi bular cutaneous and subcutaneous tissues, suboptimally evaluated in the absence of multiphase contras t. Mass appears largely homogenous, with several peripheral hypodense foci and a tiny focus of international project manager al gas. Recommend dermatological consultation. Consider further evaluation with multiphase contrast-e nhanced CT or MRI for further evaluation or ultrasound guided tissue sampling as clinically indicated . 2. Well-circumscribed homogenous fatty mass with tiny focus of peripheral calcification demonstrate d in the left supraorbital subcutaneous tissues, favoring a lipoma. Better characterized on concurren t maxillofacial noncontrasted CT. Electronically signed by: Isaac Novak MD 02/05/2023 11:43 PM MIXING TECHNICIAN Due to temporary technical issues with the PACS/Fluency reporting system, reports are being signed by the in house radiologists without review as a courtesy to insure prompt reporting. The interpreting radiologist is fully responsible for the content of the report.
--- NOTE | 2023-02-06 15:53 | RAD REPORT ---
EXAM DESCRIPTION: RAD - Chest Single View - 02/06/2023 12:03 am CLINICAL HISTORY: The patient is 62 years old and is Male; CHEST PAIN TECHNIQUE: Frontal view of the chest. COMPARISON: No relevant prior studies available. FINDINGS: Lungs: See below. Pleural space: Unremarkable. No pneumothorax. Heart: Unremarkable. Mediastinum: Unremarkable. Normal mediastinal contour. Bones/joints: No acute findings. Vasculature: Prominent interstitial and vascular markings with low lung volumes. IMPRESSION: Prominent interstitial and vascular markings with low lung volumes. Electronically signed by: Pop Durbin MD 02/06/2023 12:13 AM LABEL TACKER Due to temporary technical issues with the PACS/Fluency reporting system, reports are being signed by the in house radiologists without review as a courtesy to insure prompt reporting. The interpreting radiologist is fully responsible for the content of the report.
--- NOTE | 2023-02-06 17:13 | RAD REPORT ---
EXAM DESCRIPTION: US - Renal Ultrasound-Complete - 02/06/2023 4:57 pm CLINICAL HISTORY: Renal failure COMPARISON: No comparisons FINDINGS: Increased echogenicity of the kidneys bilaterally. The right kidney measures 9.4 cm. No hydronephrosis, focal mass or perinephric fluid. The left kidney measures 8.7 cm. No hydronephrosis. 1.4 cm left renal cyst. The urinary bladder is incompletely distended without gross abnormality seen. IMPRESSION: Increased echogenicity of the kidneys bilaterally consistent medical renal disease. No h ydronephrosis. Benign left renal cyst.
[2023-02-06] MEDS ORDERED: HEPARIN 5000 UNIT/ML 1 ML VIAL ONE (17:45)
--- NOTE | 2023-02-06 19:24 | P.PN ---
Date of Service: 02/06/23 Subjective Patient's chart reviewed. Events of last 24 hours have been noted. Patient presented with hypertensive emergency. Patient has been following up with dermatology and ENT for his mass on his chin. Pathology report is not available. Reviewed prior records as well. Patient states he does not have any antihypertensives. Per review of records from [facility] (formerly [facility])[3], patient has been on carvedilol, Imdur, nifedipine, hydralazine, and Cardura. Patient states he is also taking clonidine recently. Patient has a history of cocaine abuse. In October patient was in [facility] (formerly [facility]3] and his creatinine was 3.80 with a BUN of 49. Patient GFR was calculated to be 16. Physical Examination - Physical Exam General: Alert, In no apparent distress Respiratory: Clear to auscultation bilaterally, Normal air movement Cardiovascular: No edema, Normal pulses Gastrointestinal: Soft and benign, Non-distended Musculoskeletal: No swelling, No erythema Neurological: No focal deficits Assessment and Plan - Problems (Diagnosis) (1) Hypertensive emergency Current Visit: Yes Status: Acute (2) Acute on renal failure in setting of CKD stage IV Current Visit: Yes Status: Acute (3) Elevated troponin/non-STEMI Current Visit: Yes Status: Acute (4) Lump on face/mass on the face Current Visit: Yes Status: Acute (5) HFpEF Current Visit: Yes Status: Acute - Advance Directives Does patient have a Living Will: No Does patient have a Durable POA for Healthcare: No Plan (1) Hypertensive emergency Current Visit: Yes Status: Acute -Patient's blood pressure is significantly elevated. Patient is on a Cardene drip. Patient's been started on oral antihypertensives. Continue with strict blood pressure control. Wean off of Cardene and continue with oral antihypertensives. (2) Acute on renal failure in setting of CKD stage IV Current Visit: Yes Status: Acute -Patient's renal function significantly worsened. Patient GFR is 6. Patient's GFR was greater than 15. We will continue with monitoring renal function. (3) Elevated troponin/non-STEMI Current Visit: Yes Status: Acute -Continue with monitoring cardiac labs. Continue with further cardiac workup with serial troponins and EKG. (4) Lump on face/mass on the face Current Visit: Yes Status: Acute -Will attempt to follow-up with pathology report (5) HFpEF Current Visit: Yes Status: Acute -Strict blood pressure control. Monitor hemodynamics closely. Imperative to control blood pressure (6) Cocaine abuse Current Visit: Yes Status: Acute -Counseled regarding cocaine cessation
[2023-02-06] MEDS ORDERED: cloNIDine HCL 0.1 MG TAB PO ONE (19:30)
[2023-02-06] MEDS: NIFEDIPINE XL 60 MG TABLET PO SCH (21:16)
[2023-02-06] MEDS: cloNIDine HCL 0.1 MG TAB PO SCH (21:17)
[2023-02-07] MEDS: HEPARIN 5000 UNIT/ML 1 ML VIAL SQ SCH ×3 (00:44→16:09)
[2023-02-07 05:00] LABS: Absolute Lymphocytes (CBC) 1.6 K/uL (0.7-4.9); Hematocrit 27.6 % (39.6-49.0); Lymphocytes % 36.8 % (15.3-44.8); MCV 82.8 fL (80-100); Platelets 128 thou/uL (152-406); RBC Red Blood Cell Count 3.33 M/uL (4.33-5.43)
[2023-02-07 05:01] LABS: Protime INR 1.07
[2023-02-07 05:06] LABS: Magnesium 1.9 mg/dL (1.6-2.4); Phosphorus 5.8 mg/dL (2.5-4.9); Potassium 4.2 mEq/L (3.5-5.1)
[2023-02-07 05:56] LABS: Hepatitis B Core Ab, Total Nonreactive (Nonreactive); Hepatitis B Core IgM Nonreactive (Nonreactive); Hepatitis B Surface Ab - Quant 44.57 mIU/mL (<8.0); Hepatitis B surface AG Interp. Nonreactive (Nonreactive); Hepatitis C Virus Ab Nonreactive (Nonreactive)
[2023-02-07] MEDS: cloNIDine HCL 0.1 MG TAB PO SCH ×3 (09:00→21:00)
[2023-02-07] MEDS: FUROSEMIDE 20 MG/ 2ML VIAL IV SCH ×2 (09:00→20:01)
[2023-02-07] MEDS: LABETALOL HCL 100 MG TAB PO SCH (09:00)
[2023-02-07] MEDS: HYDRALAZINE HCL 25 MG TABLET PO SCH ×3 (09:00→23:23)
--- NOTE | 2023-02-07 11:01 | P.PN ---
Nephrology note (S) Pt remains in the ICU but now off Nicardipine gtt, denies MCMAHAN, dyspnea or CP. Renal function tests are not sig better, labs from [facility] reviewed. (O) Vitals reviewed in the EMR General: Alert, In no apparent distress, Cooperative HEENT: Atraumatic, Normocephalic, Other (Lt lower mandibular lesion resected, s uture present, some surrounding induration/firm swelling remains, small lump above left eyebrow as well) Neck: Supple Respiratory: Normal air movement, Other (No rhonchi) Cardiovascular: Regular rate/rhythm, Edema Gastrointestinal: Soft and benign, Non-distended, No tenderness Musculoskeletal: No tenderness, No warmth Integumentary: No rashes Neurological: Normal speech, Normal tone, Normal affect Laboratory Data (last 24 hrs) reviewed in the EMR Conclusions/Impression: A/P) 1. Abnormal results of kidney function studies. Sub-acute Stage III ARF on underlying advanced CKD late Stage IV vs progression of disease to Stage V. Cr level was > 3 mg/dl in Sept with eGFR < 20 ml/min then 2. 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 No obvious signs of renal infarction, thombosis, TMA, other based on clinical and laboratory factors. UA does show active sediment with dipstick proteinuria (he has chronic sub nephrotic proteinuria) and microscopic hematuria both of which could be seen with renal sclerosis and hypertensive arteriosclerosis. 3. Renal u/s shows kidneys at LLN in length and echogenic c/w medical renal disease 4. Will order spot urine studies to further quantify proteinuria. 5. With worsening of renal function and no major renal recovery seen on repeat labs, I diid discuss indications for initiation of HD in the low GFR state as with pt's history of non compliance and poor follow up, not starting HD now would certainly be riskier and contribute to continued uncontrolled HTN and potential fluid overload. Pt understands and consents to placement of a TDC and initiation of HD on this admission. Did consult gent surgery 6. Hypertensive emergency resolved, SBP has improved by > 25%, off gtt. Cont current PO meds, can use ACEi/ARB once HD initiated. 7. HR < 60 at times, caution with combined beta karyna and Clonidine use, doses lowered, holding parameters placed. Fito Alvarenga MD, VINAYAKN
[2023-02-07] MEDS ORDERED: cloNIDine HCL 0.1 MG TAB ONE (16:13)
[2023-02-07] MEDS ORDERED: LABETALOL HCL 100 MG TAB PO SCH (21:00)
[2023-02-07] MEDS: NIFEDIPINE XL 60 MG TABLET PO SCH (21:00)
[2023-02-07] MEDS ORDERED: HYDRALAZINE HCL 25 MG TABLET ONE (22:31)
[2023-02-08] MEDS ORDERED: HEPARIN 5000 UNIT/ML 1 ML VIAL ONE (00:28)
[2023-02-08] MEDS: HEPARIN 5000 UNIT/ML 1 ML VIAL SQ SCH ×3 (00:35→16:05)
--- NOTE | 2023-02-08 05:22 | P.PN ---
Date of Service: 02/07/23 Subjective Physical Examination - Physical Exam General: Alert, In no apparent distress Respiratory: Clear to auscultation bilaterally, Normal air movement Cardiovascular: No edema, Normal pulses Gastrointestinal: Soft and benign, Non-distended Musculoskeletal: No swelling, No erythema Neurological: No focal deficits Assessment and Plan - Problems (Diagnosis) (1) Hypertensive emergency Current Visit: Yes Status: Acute (2) Acute on renal failure in setting of CKD stage IV Current Visit: Yes Status: Acute (3) Elevated troponin/non-STEMI Current Visit: Yes Status: Acute (4) Lump on face/mass on the face Current Visit: Yes Status: Acute (5) HFpEF Current Visit: Yes Status: Acute - Advance Directives Does patient have a Living Will: No Does patient have a Durable POA for Healthcare: No Plan (1) Hypertensive emergency Current Visit: Yes Status: Acute -Patient's blood pressure is better control. Patient was weaned off nicardipine drip. Heart rate has been on the low side. Holding clonidine and increasing hydralazine. Hold beta-karyna therapy as well. Nephrology to initiate hemodialysis. Surgery consulted for permanant dialysis catheter placement (2) Acute on renal failure in setting of CKD stage IV Current Visit: Yes Status: Acute -Patient's renal function significantly worsened. Patient GFR is 6. Patient's GFR was greater than 15 in October. With no improvement in renal function, and patient has significant comes to the decision was made to go ahead and proceed with hemodialysis and patient is agreeable. Hemodialysis catheter to be placed in morning. (3) Elevated troponin/non-STEMI Current Visit: Yes Status: Acute -Continue with monitoring cardiac labs. Continue with further cardiac workup with serial troponins and EKG. Echocardiogram to be reviewed. Cardiology consultation in place. (4) Lump on face/mass on the face Current Visit: Yes Status: Acute -Will attempt to follow-up with pathology report (5) HFpEF Current Visit: Yes Status: Acute -Strict blood pressure control. Monitor hemodynamics closely. Imperative to control blood pressure (6) Cocaine abuse Current Visit: Yes Status: Acute -Counseled regarding cocaine cessation
[2023-02-08] MEDS ORDERED: HYDRALAZINE HCL 20 MG/ML VIAL ONE ×3 (06:15→22:51)
[2023-02-08] MEDS: HYDRALAZINE HCL 20 MG/ML VIAL IV PRN ×3 (06:17→22:53)
--- NOTE | 2023-02-08 06:21 | P.PN ---
Subjective Date of Service: 02/08/23 Chief Complaint: Hypertension, renal failure No issues overnight. He reports that he feels well this morning. He denies any chest pain or palpitations. He is not currently on any drips. Plan to downgrade out of ICU status today. Review of Systems 10-point ROS is otherwise unremarkable General: Weakness (generalized) Physical Examination - Vital Signs Temperature: 97.7 F Blood Pressure: 149/73 Pulse: 55 Respirations: 16 Pulse Ox (%): 97 - Physical Exam General: Alert, In no apparent distress, Oriented x3 HEENT: Atraumatic Neck: JVD not distended, Other (left mandibular mass s/p biopsy) Respiratory: Clear to auscultation bilaterally, Normal air movement Cardiovascular: No edema, Regular rate/rhythm, Normal S1 S2, No gallops, No rubs, No murmurs Gastrointestinal: Normal bowel sounds, Soft and benign, Non-distended, No tenderness, No rebound, No guarding Musculoskeletal: No clubbing Integumentary: No rashes Neurological: Normal speech, Normal affect Assessment And Plan - Plan # Hypertensive Emergency - Presenting blood pressures as high as 225/112 - Nephrology consulted - recommendations appreciated - No longer on nicardipine drip, with SBP 140-150 mmHg - Continue nifedipine, hydralazine, furosemide, clonidine - Transfer to Med/Surg # KDIGO Stage III Acute Kidney Injury on Chronic Kidney Disease Stage V # Anemia of Chronic Kidney Disease - Nephrology consulted - recommendations appreciated - Planning to initiate hemodialysis - Creatinine = 8.51 -> 7.72 -> 7.54 -> 7.53 - Urinalysis = 3+ blood, 21-50 WBCs, 3+ protein - Renal ultrasound = "Increased echogenicity of the kidneys bilaterally consistent medical renal disease. No hydronephrosis. Benign left renal cyst." - Monitor creatinine and urine output - Renally dose medications # Suspect Demand Ischemia (Type II Non-ST Segment Elevation Myocardial Infarction) due to above - Cardiology consulted - recommendations appreciated - EKG without STEMI criteria - Serial troponin: 248.5 -> 290.2 -> 263.4 -> 223.9 - Transthoracic echocardiogram pending # Pedunculated Left Perimandibular Cutaneous/Subcutaneous Mass (3 x 2.8 x 2.7 cm) # Left Supraorbital Subcutaneous Mass (1.4 x 1.2 x 1.1 cm) - Biopsy performed on 02/06/2023 - results pending - Consulted Otorhinolaryngology # Chronic Compensated Diastolic Congestive Heart Failure - Consult Cardiology - recommendations appreciated - Ordered transthoracic echocardiogram - Diuresis with furosemide - Hold beta-blockers given cocaine use - Daily weights - Strict I/O - Cardiac diet, 1.5 L fluid restriction, 2 g Na restriction # Microscopic Hematuria - Urinalysis = 3+ blood, 21-50 WBCs, 3+ protein - He will require outpatient follow-up to evaluate for urologic malignancy # Substance Use Disorder - Cocaine - Substance cessation counseling Junior Oquendo M.D.
[2023-02-08 07:50] LABS: Potassium 4.3 mEq/L (3.5-5.1)
[2023-02-08] MEDS: HYDRALAZINE HCL 25 MG TABLET PO SCH ×3 (08:28→21:34)
[2023-02-08] MEDS: FUROSEMIDE 20 MG/ 2ML VIAL IV SCH ×2 (08:37→21:34)
[2023-02-08] MEDS ORDERED: cloNIDine HCL 0.1 MG TAB PO SCH (09:00)
--- NOTE | 2023-02-08 12:00 | P.PN ---
Nephrology note (S) Pt remains in the ICU but now off Nicardipine gtt, denies MCMAHAN, dyspnea or CP. Awaiting TDC placement, no acute complaints (O) Vitals reviewed in the EMR General: Alert, In no apparent distress, Cooperative HEENT: Atraumatic, Normocephalic, Other (Lt lower mandibular lesion resected, suture present, some surrounding induration/firm swelling remains, small lump above left eyebrow as well) Neck: Supple Respiratory: Normal air movement, Other (No rhonchi) Cardiovascular: Regular rate/rhythm, Edema Gastrointestinal: Soft and benign, Non-distended, No tenderness Musculoskeletal: No tenderness, No warmth Integumentary: No rashes Neurological: Normal speech, Normal tone, Normal affect Laboratory Data (last 24 hrs) reviewed in the EMR Conclusions/Impression: A/P) 1. Abnormal results of kidney function studies. Sub-acute Stage III ARF on underlying advanced CKD late Stage IV vs progression of disease to Stage V. Cr level was > 3 mg/dl in Sept with eGFR < 20 ml/min then 2. 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 No obvious signs of renal i nfarction, thombosis, TMA, other based on clinical and laboratory factors. UA does show active sediment with dipstick proteinuria (he has chronic sub nephrotic proteinuria) and microscopic hematuria both of which could be seen with renal sclerosis and hypertensive arteriosclerosis. 3. Renal u/s shows kidneys at LLN in length and echogenic c/w medical renal disease 4. Will order spot urine studies to further quantify proteinuria which is sub nephrotic 5. With worsening of renal function and no major renal recovery seen on repeat labs, I did discuss indications for initiation of HD in the low GFR state as with pt's history of non compliance and poor follow up, not starting HD now would certainly be riskier and contribute to continued uncontrolled HTN and potential fluid overload. Pt understands and consents to placement of a TDC and initiation of HD on this admission. Did consult gen surgery, hopefully TDC placed today 6. Hypertensive emergency resolved, SBP has improved by > 25%, off gtt. Cont current PO meds, can use ACEi/ARB once HD initiated. 7. Bradycardia, will hold rate lowering agents such as beta blockers and Clonidine Fito Alvarenga MD, ZOILA
--- NOTE | 2023-02-08 13:29 | EKG ---
Test Date: 2023-02-06 Test Time: 00:05:11 Organisational Psychologist: ERICA MEASUREMENT RESULTS: Intervals: Rate: 54 [place]: 156 QRSD: 114 QT: 464 QTc: 440 [place]: P: 59 [place]: 156 QRS: -49 T: 93 INTERPRETIVE STATEMENTS: Sinus bradycardia Left anterior fascicular block Left ventricular hypertrophy with repolarization abnormality Abnormal ECG No previous ECG available for comparison Electronically Signed On 02-08-23 13:23:03 FOOD SERVICE by Jules Riddle
--- NOTE | 2023-02-08 14:01 | ECHO ---
HEIGHT: 5 ft 11 in WEIGHT: 229 lb 0 oz DATE OF STUDY: 02/08/[address]: Mauro Spears MD 2-DIMENSIONAL: YES M.MODE: YES DOPPLER: YES COLOR FLOW: YES TDS: PORTABLE: YES DEFINITY: BUBBLE STUDY: DIAGNOSIS: CONGESTIVE HEART FAILURE CARDIAC HISTORY: CATHERIZATION: NO SURGERY: NO PROSTHETIC VALVE: NO PACEMAKER: NO MEASUREMENTS (cm) DIASTOLIC (NORMALS) SYSTOLIC (NORMALS) IVSd 1.5 (0.6-1.2) LA Diam 2.8 (1.9-4.0) LVEF 68% LVIDd 5.3 (3.5-5.7) LVIDs 3.3 (2.0-3.5) %FS 38% LVPWd 1.5 (0.6-1.2) Ao Diam 3.3 (2.0-3.7) 2 DIMENSIONAL ASSESSMENT: RIGHT ATRIUM: NORMAL LEFT ATRIUM: NORMAL RIGHT VENTRICLE: NORMAL LEFT VENTRICLE: LEFT VENTRICULAR HYPERTROPHY TRICUSPID VALVE: NORMAL MITRAL VALVE: NORMAL PULMONIC VALVE: NORMAL AORTIC VALVE: MILD AORTIC INSUFFICIENCY PERICARDIAL EFFUSION: NONE AORTIC ROOT: NORMAL LEFT VENTRICULAR WALL MOTION: NORMAL DOPPLER/COLOR FLOW: SEE BELOW COMMENTS: 1. NORMAL LEFT VENTRICULAR EJECTION FRACTION GREATER THAN 60% 2. NORMAL WALL MOTION 3. SEVERE CONCENTRIC LEFT VENTRICULAR HYPERTROPHY 4. DIASTOLIC DYSFUNCTION 5. MILD AORTIC INSUFFICIENCY TECHNOLOGIST: GABRIEL RANKIN
[2023-02-08] MEDS ORDERED: NA CHLORIDE 0.9% 500 ML ONE (16:28)
[2023-02-08] MEDS: CEFAZOLIN SODIUM 1 GM/VIAL ONE ×2 (16:48→19:00)
[2023-02-08] MEDS: HEPARIN 5000 UNIT/ML 1 ML VIAL ONE ×2 (17:35→19:50)
[2023-02-08] MEDS ORDERED: NS 0.9% VIAL 0 ML ONE (17:35)
[2023-02-08] MEDS ORDERED: NA CHLORIDE 0.9% 50 ML ONE (17:36)
[2023-02-08] MEDS ORDERED: BUPIVACAINE 0.25% PF 10 ML VIAL ONE (17:36)
[2023-02-08] MEDS: LIDOCAINE HCL/EPINEPHRINE 20 ML MDV ONE ×3 (17:46→19:30)
[2023-02-08] MEDS ORDERED: FENTANYL CITR 100 MCG/2 ML ONE (19:05)
[2023-02-08] MEDS ORDERED: LIDOCAINE 2% MPF 5 ML VIAL ONE (19:05)
[2023-02-08] MEDS ORDERED: propofoL 200 MG/20 ML VIAL IV ONE (19:05)
[2023-02-08] MEDS ORDERED: MIDAZOLAM HCL 2 MG/2 ML INJ ONE (19:06)
[2023-02-08] MEDS ORDERED: ONDANSETRON 4 MG/2 ML VIAL ONE (19:06)
--- NOTE | 2023-02-08 19:58 | P.OP ---
Preoperative diagnosis: Need of Dialysis Postoperative diagnosis: Need of Dialysis Primary procedure: Placement of RIGHT Subclavian Tunneled Hemodialysis Catheter Secondary procedure: Ultrasound and Flouroscopy used Anesthesia: GETA + Local Estimated blood loss: 10cc Specimen: none Findings: Tip @ SVC Complications: None Implants: 23cm straight HD catheter Transferred to: ICU Condition: Serious
[2023-02-08] MEDS: HYDRALAZINE HCL 20 MG/ML VIAL ONE ×2 (20:22→20:37)
[2023-02-08] MEDS: HYDROMORPHONE HCL 1 MG/ML INJ ONE ×2 (20:29→20:39)
--- NOTE | 2023-02-08 20:35 | RAD REPORT ---
EXAM DESCRIPTION: RAD - Chest Single View - 02/08/2023 8:28 pm CLINICAL HISTORY: s/p hd cath COMPARISON: <Comparisons> FINDINGS: Lines: Right subclavian approach dialysis catheter with tip overlying the SVC. Lungs: No evidence of edema or pneumonia. Pleural: No significant pleural effusions or pneumothorax. Cardiac: The heart size is within normal limits. Mediastinum: Within normal limits. Bones: No acute fractures. Other: None IMPRESSION: Right subclavian approach dialysis catheter with tip overlying the SVC. No pneumothorax. Vascular congestion.
--- NOTE | 2023-02-08 20:59 | RAD REPORT ---
EXAM DESCRIPTION: RAD - Fluoroscopy <1 Hour - 02/08/2023 8:35 pm CLINICAL HISTORY: Hemodialysis Cath placement COMPARISON: No comparisons FINDINGS/IMPRESSION: Twenty-three intraoperative fluoroscopic images were submitted showing placemen t of a right subclavian approach dialysis catheter. Fluoro time: 0.3 minutes Cumulative dose: 8.49 mGy
[2023-02-08] MEDS: LOSARTAN POTASSIUM 50 MG TABLET PO SCH (21:34)
[2023-02-08] MEDS: NIFEDIPINE XL 60 MG TABLET PO SCH (21:34)
--- NOTE | 2023-02-08 23:28 | OP ---
Date of Procedure: 02/08/2023 Surgeon: Derek Serna MD, Preoperative Diagnosis: Need for dialysis. Postoperative Diagnosis: Need for dialysis. Procedure Performed: Placement of a right subclavian tunneled hemodialysis catheter using ultrasound fluoroscopic guidance. Anesthesia: General endotracheal plus local with 0.25% Marcaine. Estimated Blood Loss: 10 cc. Specimens: None. Findings: Tip was at the SVC confluence. Complications: None. Implants: 23 cm straight tunneled hemodialysis catheter. Disposition: The patient was transferred to ICU in serious condition. Procedure In Detail: After informed consent was obtained, the patient was brought to the operating r oom, prepped and draped in the usual sterile fashion. After adequate anesthesia was achieved, I mila ulated the right internal jugular vein on the first attempt using ultrasound guidance. Attempts to p lace the micro wire, however, continued to go up and into the contralateral side. I was unsuccessful at getting the catheter to go into the superior vena cava. It kept curving in a position that could not be adequately placed and as such, after multiple attempts to reposition the wire, I opted to davian ce a subclavian catheter at this point. Pressure was held on the site of the internal jugular vein a nd I ultrasounded the area. There was no evidence of hematoma or any other complication related. At this point, I turned my attention to the right subclavian vein. I cannulated right subclavian vein on the first attempt. Dark red nonpulsatile blood was returned. I advanced a micro wire at this poi nt into the SVC confluence into the right atrium. I confirmed this with fluoroscopy at this point an d anatomy was confirmed at this point. I then made a nico incision overlying the insertion site and placed the introducer sheath for the micro set and then placed a standard wire after removing the radha ro wire. I confirmed position once again in the SVC and right atrium using fluoroscopy. It was foun d to be in good position at this point. I then made a separate incision on the chest wall inferiorly from the insertion site and using a tunneling device, brought in a 23 cm straight tunnel hemodialysi s catheter putting the cuff in the midportion. At this point, I performed sequential dilatation in g Seldinger technique over the wire and confirmed each position in each dilation with fluoroscopic gu idance. At this point, the introducer sheath was placed. I also confirmed the position of this usin g fluoroscopic guidance. I then placed the catheter into the SVC, at the confluence of the SVC and r ight atrium under fluoroscopic guidance and removed the introducer sheath. I then pulled back dark r ed nonpulsatile blood quite easily from both ports and then flushed them until completely clear with saline and packed it with heparin super flush at the end. The patient remained in steep Trendelenbur g throughout the procedure. At this point, fluoroscopic guidance confirmed position of the catheter in the SVC confluence. At this point, the patient was positioned in a head up position. I irrigated both sites and closed them with a 3-0 nylon suture in interrupted fashion with good approximation of tissue and the catheter was secured. In the same said way, caps were placed and sterile dressing wa s placed over top. The patient tolerated the procedure without incident or complication, transferred to PACU in good condition. All counts were correct at the end of the case. MARK/LINDEN Voice ID: [id number] Report ID: [id number]
[2023-02-09] MEDS: HEPARIN 5000 UNIT/ML 1 ML VIAL SQ SCH ×3 (01:40→16:48)
[2023-02-09] MEDS ORDERED: HYDRALAZINE HCL 20 MG/ML VIAL ONE ×3 (02:16→23:24)
[2023-02-09] MEDS: HYDRALAZINE HCL 20 MG/ML VIAL IV PRN ×4 (02:37→23:25)
[2023-02-09 04:07] LABS: Hematocrit 33.4 % (39.6-49.0)
[2023-02-09 04:35] VITALS: BMI 30.4
[2023-02-09 04:49] LABS: Potassium 4.4 mEq/L (3.5-5.1)
[2023-02-09] MEDS: FUROSEMIDE 20 MG/ 2ML VIAL IV SCH (09:07)
[2023-02-09] MEDS: HYDRALAZINE HCL 25 MG TABLET PO SCH ×3 (09:08→20:45)
--- NOTE | 2023-02-09 10:27 | P.PN ---
Subjective Date of Service: 02/09/23 Chief Complaint: Hypertension, renal failure No issues overnight. He had a tunneled dialysis catheter placed yesterday evening. Plan to initiate hemodialysis today. He denies any concerns this morning. He denies any chest pain or palpitations. His blood pressure remains elevated, but overall improved. Review of Systems 10-point ROS is otherwise unremarkable General: Weakness (generalized) Physical Examination - Vital Signs Temperature: 97.9 F Blood Pressure: 157/83 Pulse: 80 Respirations: 14 Pulse Ox (%): 95 - Physical Exam General: Alert, In no apparent distress, Oriented x3 HEENT: Atraumatic, Mucous membr. moist/pink, Sclerae nonicteric Neck: JVD not distended Respiratory: Clear to auscultation bilaterally, Diminished Cardiovascular: No edema, Regular rate/rhythm, Normal S1 S2, No gallops, No rubs, No murmurs Gastrointestinal: Normal bowel sounds, Soft and benign, Non-distended, No tender ness, No rebound, No guarding Musculoskeletal: No clubbing Integumentary: No rashes Neurological: Normal speech, Normal affect Urinary: Dialysis catheter (right-sided) Assessment And Plan - Plan # Hypertensive Emergency - Presenting blood pressures as high as 225/112 - Nephrology consulted - recommendations appreciated - No longer on nicardipine drip - Continue nifedipine, hydralazine, furosemide, clonidine - Hold off on beta-blockers given cocaine use # KDIGO Stage III Acute Kidney Injury on Chronic Kidney Disease Stage V # Anemia of Chronic Kidney Disease - Nephrology consulted - recommendations appreciated - S/P TDC placement yesterday - Planning to initiate hemodialysis - Creatinine = 8.51 -> 7.72 -> 7.54 -> 7.53 - Urinalysis = 3+ blood, 21-50 WBCs, 3+ protein - Renal ultrasound = "Increased echogenicity of the kidneys bilaterally consistent medical renal disease. No hydronephrosis. Benign left renal cyst." - Monitor creatinine and urine output - Renally dose medications # Suspect Demand Ischemia (Type II Non-ST Segment Elevation Myocardial Infarction) due to above - Cardiology consulted - recommendations appreciated - EKG without STEMI criteria - Serial troponin: 248.5 -> 290.2 -> 263.4 -> 223.9 - Transthoracic echocardiogram = "1. normal left ventricular ejection fraction greater than 60% 2. normal wall motion 3. severe concentric left ventricular hyp ertrophy 4. diastolic dysfunction 5. mild aortic insufficiency" # Pedunculated Left Perimandibular Cutaneous/Subcutaneous Mass (3 x 2.8 x 2.7 cm) # Left Supraorbital Subcutaneous Mass (1.4 x 1.2 x 1.1 cm) - Biopsy performed on 02/06/2023 - results pending - Consulted Otorhinolaryngology and spoke with Dr. Montes - recommendations appreciated # Chronic Compensated Diastolic Congestive Heart Failure - Consult Cardiology - recommendations appreciated - Transthoracic echocardiogram = "1. normal left ventricular ejection fraction greater than 60% 2. normal wall motion 3. severe concentric left ventricular hypertrophy 4. diastolic dysfunction 5. mild aortic insufficiency" - Diuresis with furosemide - Hold beta-blockers given cocaine use - Daily weights - Strict I/O - Cardiac diet, 1.5 L fluid restriction, 2 g Na restriction # Microscopic Hematuria - Urinalysis = 3+ blood, 21-50 WBCs, 3+ protein - He will require outpatient follow-up to evaluate for urologic malignancy # Substance Use Disorder - Cocaine - Substance cessation counseling Junior Oquendo M.D.
[2023-02-09] MEDS ORDERED: REGADENOSON 0.4 MG/5 ML SYR IV ONE (11:05)
--- NOTE | 2023-02-09 11:45 | RAD REPORT ---
EXAM DESCRIPTION: NM - Rest Stress Cardiac Imaging - 02/09/2023 11:34 am CLINICAL HISTORY: elevated troponin Chest pain. COMPARISON: No comparisons TECHNIQUE: The patient was administered approximately 10mCi of Tc 99m Sestamibi prior to resting SPE CT imaging of the heart. The patient was then administered approximately 30 mCi of Tc 99m Sestamibi f ollowing exercise or pharmacologic stress. Multiplanar SPECT images were reviewed. FINDINGS: No stress induced ischemic defect is seen to suggest stress induced ischemia. No fixed def ect is seen to suggest hibernating myocardium or scarred myocardium. The end diastolic volume is 235 ml, the end systolic volume is 148 ml, and the ejection fraction is 3 7 %. IMPRESSION: No stress induced ischemia.
[2023-02-09] MEDS ORDERED: HYDRALAZINE HCL 25 MG TABLET ONE (14:35)
--- NOTE | 2023-02-09 15:06 | TREADPHA ---
DX: ELEVATED TROPONIN Date of Study: 02/09/2023 Ht: 5' 11 " Wt: 218 lb 0 oz Consulting Physician: LUIS MEDICATIONS: LASIX, HEPARIN, APRESOLINE, COZAAR, NICARDIPINE, PROCARDIA, ZOFRAN HISTORY: 62 YEAR OLD MALE WITH COMPLAINTS OF CHEST PAIN, ELEVATED TROPONIN. HISTORY OF HYPERTENSION, END STAGE RENAL DISEASE, FIRST TREATMENT TODAY PHYSICIAL EXAMINATION: RESTING B.P.: 173/87 RESTING H.R.: 63 RESTING EKG: SINUS RHYTHM WITH LEFT VENTRICULAR HYPERTROPHY PROTOCOL: PHARMACOLOGIC EXERCISE TIME: 3:30 B.P. AT PEAK STRESS: 123/79 IMPRESSION: LEXISCAN INJECTED. CARDIOLITE INJECTED - SEE NUCLEAR MEDICINE REPORT. NO SUPRAVENTRICULAR TACHYCARDIA, VENTRICULAR TACHYCARDIA, PREMATURE ATRIAL COMPLEXES, PREMATURE VENTRICULAR COMPLEXES NOTED. PATIENT DENIES CHEST PAIN. PEPSI COLA PROVIDED TO THE PATIENT. NO ELECTROCARDIOGRAM CHANGES WITH LEXISCAN.
[2023-02-09] MEDS ORDERED: HEPARIN 5000 UNIT/ML 1 ML VIAL ONE (16:42)
--- NOTE | 2023-02-09 16:48 | P.PN ---
Nephrology note (S) S/p Rt SC TDC placement, tolerated HD well, no acute complaints (O) Vitals reviewed in the EMR General: Alert, In no apparent distress, Cooperative HEENT: Atraumatic, Normocephalic, Other (Lt lower mandibular lesion resected, suture present, some surrounding induration/firm swelling remains, small lump above left eyebrow as well) Neck: Supple Respiratory: Normal air movement, Other (No rhonchi) Cardiovascular: Regular rate/rhythm, Edema Gastrointestinal: Soft and benign, Non-distended, No tenderness Musculoskeletal: No tenderness, No warmth Integumentary: No rashes Neurological: Normal speech, Normal tone, Normal affect Laboratory Data (last 24 hrs) reviewed in the EMR Conclusions/Impression: A/P) 1. Abnormal results of kidney function studies. Sub-acute Stage III ARF on underlying advanced CKD late Stage IV vs progression of disease to Stage V. Cr level was > 3 mg/dl in Sept with eGFR < 20 ml/min then 2. 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 No obvious signs of renal infarction, thombosis, TMA, other based on clinical and laboratory factors. UA does show active sediment with dipstick proteinuria (he has chronic sub nephrotic proteinuria) and microscopic hematuria both of which could be seen with renal sclerosis and hypertensive arteriosclerosis. 3. Renal u/s shows kidneys at LLN in length and echogenic c/w medical renal disease 4. Did order spot urine studies to further quantify proteinuria which is sub nephrotic 5. With worsening of renal function and no major renal recovery seen on repeat labs, I did discuss indications for initiation of HD in the low GFR state as with pt's history of non compliance and poor follow up, not starting HD now would certainly be riskier and contribute to continued uncontrolled HTN and potential fluid overload. Pt understands and consented to placement of a TDC and initiation of HD on this admission. S/p TDC, 1st HD today, next HD tmrw. Asked CM to set up OP HD but with pt uninsured, financial clearance will likely take some time 6. Hypertensive emergency resolved, SBP has improved by > 25%, off gtt. Cont current PO meds, did order ACEi/ARB since HD initiated. 7. Bradycardia, will hold rate lowering agents such as beta blockers and Clonidine Fito Alvarenga MD, ZOILA
--- NOTE | 2023-02-09 18:20 | P.CNS ---
Date of Consult: 02/08/23 Reason for Consult: CHF, elevated troponin Chief Complaint: Hypertension, renal failure History of Present Illness: Mr. Melvin is a 62 yo male who presented to the ED with a complaint of a facial mass. While evaluated in the ED it was noted Mr. Melvin had a hypertensive emergency and was placed on a nicardipine drip, troponins were trending up and Cardiology was consulted Allergies No Known Allergies Allergy (Unverified 06/29/14 13:48) Home medications list reviewed: Yes Home Medications: NK [No Home Meds] 02/06/23 - Past Medical/Surgical History -: HTN -: CKD - Social History Smoking Status: Current every day smoker Alcohol use: Yes CD- Drugs: Yes Caffeine use: Yes Place of Residence: Home Review of Systems 10-point ROS is otherwise unremarkable Cardiovascular: As per HPI Physical Examination Temp Pulse Resp BP Pulse Ox 97.9 F 80 14 157/83 H 95 02/09/23 10:31 02/09/23 10:31 02/09/23 10:31 02/09/23 10:31 02/09/23 10:31 General: Alert, Oriented x3 HEENT: Atraumatic Neck: Supple, 2+ carotid pulse no bruit Respiratory: Clear to auscultation bilaterally, Diminished Cardiovascular: No edema, Regular rate/rhythm Capillary refill: <2 Seconds Gastrointestinal: Normal bowel sounds, Soft and benign Musculoskeletal: No clubbing Integumentary: No rashes Neurological: Normal speech, Normal tone Lymphatics: No axilla or inguinal lymphadenopathy External genitalia: Deferred Rectal: Deferred Conclusions/Impression: Assessment & Plan 1. Elevated troponin: Serial troponin: 248.5 -> 290.2 -> 263.4 -> 223.9 Transthoracic echocardiogram:1. normal left ventricular ejection fraction greater than 60% 2. normal wall motion 3. severe concentric left ventricular hypertrophy 4. diastolic dysfunction 5. mild aortic insufficiency" NM stress test 02/09/23 -> IMPRESSION: No stress induced ischemia 2. Hypertensive emergency (225/112) Continue nifedipine, hydralazine, furosemide, clonidine. Hold beta-blockers- cocaine use EKG without STEMI criteria 3. Diastolic Heart Failure Diuresis with furosemide Hold beta-blockers given cocaine use Daily weights Strict I/O Cardiac diet, 1.5 L fluid restriction, 2 g Na restriction Cardiology will sign off
[2023-02-09] MEDS: NIFEDIPINE XL 60 MG TABLET PO SCH (20:44)
[2023-02-09] MEDS: LOSARTAN POTASSIUM 50 MG TABLET PO SCH (20:44)
[2023-02-10] MEDS ORDERED: Meropenem 1000 MG/VIAL IV ONE (00:53)
[2023-02-10] MEDS ORDERED: NA CHLORIDE 0.9% 0 ML ONE (00:53)
[2023-02-10] MEDS ORDERED: HEPARIN 5000 UNIT/ML 1 ML VIAL ONE ×3 (00:54→16:23)
[2023-02-10] MEDS: HEPARIN 5000 UNIT/ML 1 ML VIAL SQ SCH ×3 (00:57→16:54)
[2023-02-10 05:13] LABS: Potassium 4.1 mEq/L (3.5-5.1)
[2023-02-10] MEDS ORDERED: FUROSEMIDE 40 MG TABLET ONE (09:57)
[2023-02-10] MEDS ORDERED: HYDRALAZINE HCL 25 MG TABLET ONE (09:57)
[2023-02-10] MEDS: FUROSEMIDE 40 MG TABLET PO SCH (10:07)
[2023-02-10] MEDS: HYDRALAZINE HCL 25 MG TABLET PO SCH ×3 (10:07→20:44)
--- NOTE | 2023-02-10 11:07 | P.PN ---
Date of Service: 02/10/23 ENT Progress Note Patient apparently is in dialysis getting treatment. Unable to see or treat the skin lesions. Diagnosis: 1. Pyogenic granuloma, left inferomedial cheek-- most likely from picking. 2. Neoplasm uncertain behavior, right medial eyebrow, suspect pyogenic granuloma. Plan: 1. Keep both lesions covered with Bactroban and bandages. 2. Consider silver nitrate treatment under local anesthetic and obtain biopsy of right medial eyebrow lesion when able. 3. Of note, most pyogenic granulomas will resolve on their own if not manipulated.
--- NOTE | 2023-02-10 14:12 | CON ---
Date of Consultation: 02/08/2023 Chief Complaint: Left lower facial lesion. History Of Present Illness: Patient is a 62-year-old male who presented to the emergency department with a painful lesion located over the lower left cheek. Upon further examination, it was found that he was having a hypertensive emergency and acute renal failure with elevated troponins. Thus, he wa s admitted to the intensive care unit and started on a Cardene drip and Procardia and hydralazine. A ftblayne akers I was consulted for this painful lesion. Patient complains of pain located at th e left inferior medial cheek area where the lesion is located and he frequently picks at the area and at times it has drainage and bleeding as well as gradual enlargement over the past 6-12 months. No other ENT complaints today. Past Medical History: Denies. Past Surgical History: Denies. Medications: None. Allergies: NO KNOWN DRUG ALLERGIES. PATIENT IS A POOR HISTORIAN. Review of Systems: General: Unremarkable. Eyes: Denies drainage, double vision, blurred vision. Ears: Denies hearing loss, otalgia, otorrhea. Nose: Denies epistaxis or obstruction. Throat: Denies sore throat, dysphagia. Face: Positive for painful lesion located on the left inferior medial cheek. Neck: Denies swelling or pain. Physical Examination: Vital Signs: Currently stable. He is in no acute distress. Eyes: PERRLA/EOMI. Ears: Deferred. Nose: Moist intranasal mucosa. Midline septum. Throat: Moist oral cavity. Midline uvula. No obstruction. Neck: Supple. Trachea midline. Skin: Facial skin, left inferior medial cheek small ulcerative neoplasm with surrounding swelling an d hypopigmentation. Nidus of lesion measures approximately 0.5 cm and swollen area measures an addit ional 2 cm circumferential. The lesion is painful to touch. Left supraorbital forehead demonstrates a subcutaneous cystic lesion measuring approximately 2 cm and is nontender to palpation. Next, shaun ent has an ulcerative lesion located at the medial eyebrow measuring approximately 0.6 cm, which is m ost likely similar to the one located in the left inferior medial cheek. Rest of skin exam is unrema rkable. 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 Biops y of the cheek lesion was performed and pathology is pending. 2.Left supraorbital subcutaneous cyst, asymptomatic. Plan: 1.Surgical plan depends on pathology received. 2.Monitoring of left supraorbital cyst is reasonable. This can be done in an outpatient setting. CODI/LINDEN Voice ID: [id number] Report ID: [id number]
[2023-02-10] MEDS ORDERED: HYDRALAZINE HCL 20 MG/ML VIAL ONE (16:23)
[2023-02-10] MEDS: HYDRALAZINE HCL 20 MG/ML VIAL IV PRN (16:54)
--- NOTE | 2023-02-10 17:31 | P.PN ---
Subjective Date of Service: 02/10/23 Chief Complaint: Hypertension, renal failure No issues overnight. He denies any concerns this morning. He denies any chest pain or palpitations. His blood pressure remains elevated - plan to adjust medications and monitor BP closely. Review of Systems 10-point ROS is otherwise unremarkable General: Weakness (generalized) Physical Examination - Vital Signs Temperature: 98.3 F Blood Pressure: 172/84 Pulse: 62 Respirations: 17 Pulse Ox (%): 99 - Physical Exam General: Alert, In no apparent distress, Oriented x3 HEENT: Other (left-sided facial mass) Neck: Supple, JVD not distended Respiratory: Clear to auscultation bilaterally, Normal air movement Cardiovascular: No edema, Regular rate/rhythm, Normal S1 S2, No gallops, No rubs, No murmurs Gastrointestinal: Normal bowel sounds, Soft and benign, Non-distended, No tenderness, No rebound, No guarding Musculoskeletal: No clubbing Integumentary: No rashes Neurological: Normal speech, Cranial nerves 3-12 intact, Normal affect Assessment And Plan - Plan # Hypertensive Emergency - Presenting blood pressures as high as 225/112 - Nephrology consulted - recommendations appreciated - No longer on nicardipine drip - Continue nifedipine, hydralazine, furosemide, clonidine (up-titrate doses as tolerated) - Hold off on beta-blockers given cocaine use # KDIGO Stage III Acute Kidney Injury on Chronic Kidney Disease Stage V # Anemia of Chronic Kidney Disease - Nephrology consulted - recommendations appreciated - S/P TDC placement yesterday - Recently started on hemodialysis - Urinalysis = 3+ blood, 21-50 WBCs, 3+ protein - Renal ultrasound = "Increased echogenicity of the kidneys bilaterally consistent medical renal disease. No hydronephrosis. Benign left renal cyst." - Monitor creatinine and urine output - Renally dose medications # Suspect Demand Ischemia (Type II Non-ST Segment Elevation Myocardial Infarction) due to above - Cardiology consulted - recommendations appreciated - Recommended stress test, which was without reversible ischemia - EKG without STEMI criteria - Serial troponin: 248.5 -> 290.2 -> 263.4 -> 223.9 - Transthoracic echocardiogram = "1. normal left ventricular ejection fraction greater than 60% 2. normal wall motion 3. severe concentric left ventricular hypertrophy 4. diastolic dysfunction 5. mild aortic insufficiency" # Pedunculated Left Perimandibular Cutaneous/Subcutaneous Mass (3 x 2.8 x 2.7 cm) # Left Supraorbital Subcutaneous Mass (1.4 x 1.2 x 1.1 cm) - Biopsy performed on 02/06/2023 - consistent with pyogenic granuloma - Consulted Otorhinolaryngology and spoke with Dr. Montes - recommendations appreciated # Chronic Compensated Diastolic Congestive Heart Failure - Consult Cardiology - recommendations appreciated - Transthoracic echocardiogram = "1. normal left ventricular ejection fraction greater than 60% 2. normal wall motion 3. severe concentric left ventricular hypertrophy 4. diastolic dysfunction 5. mild aortic insufficiency" - Diuresis with furosemide - Hold beta-blockers given cocaine use - Daily weights - Strict I/O - Cardiac diet, 1.5 L fluid restriction, 2 g Na restriction # Microscopic Hematuria - Urinalysis = 3+ blood, 21-50 WBCs, 3+ protein - He will require outpatient follow-up to evaluate for urologic malignancy # Substance Use Disorder - Cocaine - Substance cessation counseling Junior Oquendo M.D.
[2023-02-10] MEDS: LOSARTAN POTASSIUM 50 MG TABLET PO SCH (20:46)
[2023-02-10] MEDS: NIFEDIPINE XL 90 MG TABLET PO SCH (21:10)
[2023-02-11] MEDS ORDERED: HYDRALAZINE HCL 20 MG/ML VIAL ONE (00:29)
[2023-02-11] MEDS: HYDRALAZINE HCL 20 MG/ML VIAL IV PRN (00:30)
[2023-02-11] MEDS: HEPARIN 5000 UNIT/ML 1 ML VIAL SQ SCH ×3 (00:30→16:33)
[2023-02-11 05:10] LABS: Magnesium 1.9 mg/dL (1.6-2.4); Phosphorus 4.1 mg/dL (2.5-4.9)
[2023-02-11] MEDS: FUROSEMIDE 40 MG TABLET PO SCH (08:08)
[2023-02-11] MEDS: HYDRALAZINE HCL 25 MG TABLET PO SCH ×3 (08:08→21:17)
[2023-02-11] MEDS: MUPIROCIN 2% OINT 22GM TUBE TOP SCH (08:09)
--- NOTE | 2023-02-11 08:39 | P.PN ---
Subjective Date of Service: 02/11/23 Chief Complaint: Hypertension, renal failure No issues overnight. He denies any concerns this morning. He denies any chest pain or palpitations. His blood pressure remains elevated despite increasing nifedipine dose, will re-introduce clonidine. Appreciate CM recommendations. Review of Systems 10-point ROS is otherwise unremarkable Physical Examination - Vital Signs Temperature: 98.0 F Blood Pressure: 167/95 Pulse: 88 Respirations: 20 Pulse Ox (%): 94 - Physical Exam General: Alert, In no apparent distress, Oriented x3 HEENT: Atraumatic, Mucous membr. moist/pink, Other (left-sided facial swelling), Sclerae nonicteric Respiratory: Clear to auscultation bilaterally, Normal air movement Cardiovascular: No edema, Regular rate/rhythm, No murmurs Gastrointestinal: Normal bowel sounds, Soft and benign, No tenderness Musculoskeletal: No clubbing Integumentary: No rashes Neurological: Normal speech, Normal affect Assessment And Plan - Plan # Hypertensive Emergency - Presenting blood pressures as high as 225/112 - Nephrology consulted - recommendations appreciated - No longer on nicardipine drip - Continue nifedipine, hydralazine, furosemide, clonidine (up-titrate doses as tolerated) - Hold off on beta-blockers given cocaine use # KDIGO Stage III Acute Kidney Injury on Chronic Kidney Disease Stage V # Anemia of Chronic Kidney Disease - Nephrology consulted - recommendations appreciated - S/P TDC placement yesterday - Recently started on hemodialysis - Urinalysis = 3+ blood, 21-50 WBCs, 3+ protein - Renal ultrasound = "Increased echogenicity of the kidneys bilaterally consistent medical renal disease. No hydronephrosis. Benign left renal cyst." - Monitor creatinine and urine output - Renally dose medications # Suspect Demand Ischemia (Type II Non-ST Segment Elevation Myocardial Infarction) due to above - Cardiology consulted - recommendations appreciated - Recommended stress test, which was without reversible ischemia - EKG without STEMI criteria - Serial troponin: 248.5 -> 290.2 -> 263.4 -> 223.9 - Transthoracic echocardiogram = "1. normal left ventricular ejection fraction greater than 60% 2. normal wall motion 3. severe concentric left ventricular hypertrophy 4. diastolic dysfunction 5. mild aortic insufficiency" # Pedunculated Left Perimandibular Cutaneous/Subcutaneous Mass (3 x 2.8 x 2.7 cm) # Left Supraorbital Subcutaneous Mass (1.4 x 1.2 x 1.1 cm) - Biopsy performed on 02/06/2023 - consistent with pyogenic granuloma - Consulted Otorhinolaryngology and spoke with Dr. Montes - recommendations appreciated - Recommends mupirocin topical daily # Chronic Compensated Diastolic Congestive Heart Failure - Consult Cardiology - recommendations appreciated - Transthoracic echocardiogram = "1. normal left ventricular ejection fraction greater than 60% 2. normal wall motion 3. severe concentric left ventricular hypertrophy 4. diastolic dysfunction 5. mild aortic insufficiency" - Diuresis with furosemide - Hold beta-blockers given cocaine use - Daily weights - Strict I/O - Cardiac diet, 1.5 L fluid restriction, 2 g Na restriction # Microscopic Hematuria - Urinalysis = 3+ blood, 21-50 WBCs, 3+ protein - He will require outpatient follow-up to evaluate for urologic malignancy # Substance Use Disorder - Cocaine - Substance cessation counseling - Disposition: Pending outpatient dialysis chair arrangement. Appreciate CM assistance. Junior Oquendo M.D.
[2023-02-11] MEDS ORDERED: cloNIDine HCL 0.1 MG TAB ONE (10:10)
[2023-02-11] MEDS: cloNIDine HCL 0.1 MG TAB PO SCH ×2 (10:17→21:17)
[2023-02-11] MEDS ORDERED: HYDRALAZINE HCL 25 MG TABLET ONE (14:02)
[2023-02-11] MEDS: LOSARTAN POTASSIUM 50 MG TABLET PO SCH (21:17)
[2023-02-11] MEDS: NIFEDIPINE XL 90 MG TABLET PO SCH (21:18)
--- NOTE | 2023-02-11 23:28 | P.PN ---
Date of Service: 02/11/23 Vital Signs Temp Pulse Resp BP Pulse Ox 97.3 F 56 18 171/86 H 97 02/11/23 20:00 02/11/23 21:18 02/11/23 20:00 02/11/23 21:18 02/11/23 20:00 Medications Clonidine HCl (Clonidine Hcl 0.1 Mg Tab) 0.1 mg PO BID [facility] Last Admin: 02/11/23 21:17 Dose: 0.1 mg Furosemide (Furosemide 40 Mg Tablet) 40 mg PO DAILY [facility] Last Admin: 02/11/23 08:08 Dose: 40 mg Heparin Sodium (Porcine) (Heparin 5000 Unit/Ml 1 Ml Vial) 5,000 unit SQ Q8HR [facility] Last Admin: 02/11/23 16:33 Dose: 5,000 unit Heparin Sodium (Porcine) (Heparin 1,000 Unit/Ml Vial) 6,000 unit IV EVERY HD PRN PRN Reason: FOR DIALYSIS CATHETER CARE Last Admin: 02/10/23 14:16 Dose: 6,000 unit Heparin Sodium (Porcine) (Heparin 1,000 Unit/Ml Vial) 2,000 unit IV EVERY HD PRN PRN Reason: anticoagulation with ea. HD tx Last Admin: 02/09/23 12:00 Dose: 2,000 unit Hydralazine HCl (Hydralazine Hcl 20 Mg/Ml Vial) 10 mg IV Q4HP PRN PRN Reason: Goal to achieve SBP in comment Last Admin: 02/11/23 00:30 Dose: 10 mg Hydralazine HCl (Hydralazine Hcl 25 Mg Tablet) 50 mg PO TID [facility] Last Admin: 02/11/23 21:17 Dose: 50 mg Losartan Potassium (Losartan Potassium 50 Mg Tablet) 50 mg PO BEDTIME [facility] Last Admin: 02/11/23 21:17 Dose: 50 mg Mupirocin (Mupirocin 2% Oint 22gm Tube) 1 appl TOP DAILY [facility] Last Admin: 02/11/23 08:09 Dose: 1 appl Nifedipine (Nifedipine Xl 90 Mg Tablet) 90 mg PO BEDTIME [facility] Last Admin: 02/11/23 21:18 Dose: 90 mg Ondansetron HCl (Ondansetron 4 Mg/2 Ml Vial) 4 mg IV Q6HP PRN PRN Reason: NAUSEA / VOMITING Assessment/ Plan: Nephrology No dyspnea No chest pain Feeling better No acute events overnight Vitals, medications, blood work and imaging reviewed in the chart. NAD. NCAT. MMM. Neck supple. Normal respiratory effort. RRR. Abd ND. No C/C. LE Edema. No rash. AAO. Normal speech. Stage III BELL in the setting of HTN Prior CKD stage unclear but likely CKD IV/ V with Proteinuria -HD initiated -HBV & HCV negative -Dialysis placement pending HTN with CKD -Continue Losartan and Nifedipine and Hydralazine -Continue Clonidine Anemia in CKD -PRBC prn -Retacrit PRN CKD MBD -Start Ergo -Start Calcitriol Hospitalist note reviewed
[2023-02-12] MEDS: HEPARIN 5000 UNIT/ML 1 ML VIAL SQ SCH ×3 (00:57→17:09)
[2023-02-12 03:46] LABS: Magnesium 1.8 mg/dL (1.6-2.4); Phosphorus 4.9 mg/dL (2.5-4.9); Potassium 4.3 mEq/L (3.5-5.1)
[2023-02-12] MEDS: CALCITROL 0.25 MCG CAP PO SCH (09:40)
[2023-02-12] MEDS: DOCUSATE NA 100 MG CAP PO SCH ×2 (09:44→21:46)
[2023-02-12] MEDS: HYDRALAZINE HCL 25 MG TABLET PO SCH ×3 (09:44→21:46)
[2023-02-12] MEDS: FUROSEMIDE 40 MG TABLET PO SCH (09:44)
[2023-02-12] MEDS: cloNIDine HCL 0.1 MG TAB PO SCH (09:45)
[2023-02-12] MEDS: NEPRO SHAKE 237 ML CAN PO SCH ×3 (10:08→21:47)
[2023-02-12] MEDS: MUPIROCIN 2% OINT 22GM TUBE TOP SCH (11:17)
--- NOTE | 2023-02-12 12:34 | P.PN ---
Subjective Date of Service: 02/12/23 Chief Complaint: Hypertension, renal failure Pt is resting comfortably in bed. He is waiting for the result biopsy of the skin lesion. Pt was encouraged to stop cocaine abuse. No other complaints. Review of Systems Unremarkable General: Unremarkable Eyes: Unremarkable ENT: Unremarkable Respiratory: Unremarkable Cardiovascular: Unremarkable Gastrointestinal: Unremarkable Genitourinary: Unremarkable Musculoskeletal: Unremarkable Integumentary: Lesions (left facial lesion) Neurological: Unremarkable Lymphatics: Unremarkable Physical Examination - Vital Signs Temperature: 98.2 F Blood Pressure: 161/85 Pulse: 63 Respirations: 16 Pulse Ox (%): 97 - Physical Exam General: Alert, In no apparent distress, Oriented x3 HEENT: Atraumatic, Normocephalic, PERRLA Neck: Supple, 2+ carotid pulse no bruit Respiratory: Clear to auscultation bilaterally, Normal air movement Cardiovascular: No edema, Normal pulses, Regular rate/rhythm, Normal S1 S2 Capillary refill: <2 Seconds Gastrointestinal: Normal bowel sounds, Soft and benign, Non-distended Musculoskeletal: No clubbing, No swelling Integumentary: No rashes, No breakdown, No significant lesion, Skin lesion Neurological: Normal gait, Normal speech, Normal strength at 5/5 x4 extr Lymphatics: No axilla or inguinal lymphadenopathy Assessment And Plan - Plan Hypertensive Emergency: improved. Will continue nifedipine, hydralazine, furosemide, and clonidine. Presenting blood pressures as high as 225/112 No longer on nicardipine drip. Hold off on beta-blockers given cocaine use Acute Kidney Injury on Chronic Kidney Disease Stage V: Cr is 5.57. Pt likely has ESRD. started on HD. Nephrology is following. Renal ultrasound = "Increased echogenicity of the kidneys bilaterally consistent medical renal disease. No hydronephrosis. Benign left renal cyst. Anemia of Chronic Kidney Disease: Hgb is 11.1. Will monitor H/H. NSTEMI: Serial troponin: 248.5 -> 290.2 -> 263.4 -> 223.9. Transthoracic echocardiogram showed normal left ventricular ejection fraction greater than 60% 2. normal wall motion 3. severe concentric left ventricular hypertrophy 4. diastolic dysfunction 5. mild aortic insufficiency. Pedunculated Left Perimandibular Cutaneous/Subcutaneous Mass (3 x 2.8 x 2.7 cm) and left Supraorbital Subcutaneous Mass (1.4 x 1.2 x 1.1 cm): Biopsy performed on 02/06/2023 consistent with pyogenic granuloma. Consulted Otorhinolaryngology and spoke with Dr. Montes. Recommendations appreciated. Recommends mupirocin to pical daily Chronic Compensated Diastolic Congestive Heart Failure: will continue lasix, strict I/O, daily weight and low salt diet. Echo shows "1. normal left ventricular ejection fraction greater than 60% 2. normal wall motion 3. severe concentric left ventricular hypertrophy 4. diastolic dysfunction 5. mild aortic insufficiency" Avoid BB due to cocaine abuse. Microscopic Hematuria: Urinalysis = 3+ blood, 21-50 WBCs, 3+ protein. He will require outpatient follow-up to evaluate for urologic malignancy Substance Use Disorder: Pt was advised to stop using cocaine Disposition: Pending hospital course. Discharge Plan: Home Plan to discharge in: 24 Hours - Code Status/Comfort Care Code Status Assessed: Yes
[2023-02-12] MEDS ORDERED: cloNIDine HCL 0.1 MG TAB PO PRN (19:37)
--- NOTE | 2023-02-12 19:41 | P.PN ---
Date of Service: 02/12/23 Vital Signs Temp Pulse Resp BP Pulse Ox 98.7 F 58 16 155/84 H 97 02/12/23 16:00 02/12/23 16:00 02/12/23 16:00 02/12/23 16:00 02/12/23 16:00 Medications Calcitriol (Calcitrol 0.25 Mcg Cap) 0.5 mcg PO DAILY [facility] Last Admin: 02/12/23 09:40 Dose: 0.5 mcg Clonidine HCl (Clonidine Hcl 0.1 Mg Tab) 0.1 mg PO BID [facility] Last Admin: 02/12/23 09:45 Dose: 0.1 mg Docusate Sodium (Docusate Na 100 Mg Cap) 100 mg PO BID [facility] Last Admin: 02/12/23 09:44 Dose: 100 mg Enteral Nutritional Formula (Nepro Shake 237 Ml Can) 240 ml PO TID [facility] Last Admin: 02/12/23 15:05 Dose: 237 ml Ergocalciferol (Drisdol (Vitamin D=Ergocalciferol) 48699 Unit Cap) 50,000 unit PO Q48H [facility] Stop: 02/15/23 09:01 Furosemide (Furosemide 40 Mg Tablet) 40 mg PO DAILY [facility] Last Admin: 02/12/23 09:44 Dose: 40 mg Heparin Sodium (Porcine) (Heparin 5000 Unit/Ml 1 Ml Vial) 5,000 unit SQ Q8HR [facility] Last Admin: 02/12/23 17:09 Dose: 5,000 unit Heparin Sodium (Porcine) (Heparin 1,000 Unit/Ml Vial) 6,000 unit IV EVERY HD PRN PRN Reason: FOR DIALYSIS CATHETER CARE Last Admin: 02/10/23 14:16 Dose: 6,000 unit Heparin Sodium (Porcine) (Heparin 1,000 Unit/Ml Vial) 2,000 unit IV EVERY HD PRN PRN Reason: anticoagulation with ea. HD tx Last Admin: 02/09/23 12:00 Dose: 2,000 unit Hydralazine HCl (Hydralazine Hcl 20 Mg/Ml Vial) 10 mg IV Q4HP PRN PRN Reason: Goal to achieve SBP in comment Last Admin: 02/11/23 00:30 Dose: 10 mg Hydralazine HCl (Hydralazine Hcl 25 Mg Tablet) 50 mg PO TID [facility] Last Admin: 02/12/23 13:45 Dose: 50 mg Losartan Potassium (Losartan Potassium 50 Mg Tablet) 50 mg PO BEDTIME [facility] Last Admin: 02/11/23 21:17 Dose: 50 mg Mupirocin (Mupirocin 2% Oint 22gm Tube) 1 appl TOP DAILY [facility] Last Admin: 02/12/23 11:17 Dose: 1 appl Nifedipine (Nifedipine Xl 90 Mg Tablet) 90 mg PO BEDTIME [facility] Last Admin: 02/11/23 21:18 Dose: 90 mg Ondansetron HCl (Ondansetron 4 Mg/2 Ml Vial) 4 mg IV Q6HP PRN PRN Reason: NAUSEA / VOMITING Assessment/ Plan: Nephrology No dyspnea No chest pain Feeling better No acute events overnight Vitals, medications, blood work and imaging reviewed in the chart. NAD. NCAT. MMM. Neck supple. Normal respiratory effort. RRR. Abd ND. No C/C. LE Edema none. No rash. AAO. Normal speech. Stage III BELL in the setting of HTN Prior CKD stage unclear but likely CKD IV/ V with Proteinuria -HD initiated -HBV & HCV negative -Dialysis placement pending HTN with CKD -Increase Losartan and Nifedipine -Continue Hydralazine -Change Clonidine PRN Anemia in CKD -PRBC prn -Retacrit PRN CKD MBD -Continue Ergo -Continue Calcitriol Hospitalist note reviewed
[2023-02-12] MEDS: LOSARTAN POTASSIUM 50 MG TABLET PO SCH (21:00)
[2023-02-12] MEDS: NIFEDIPINE XL 90 MG TABLET PO SCH (21:46)
[2023-02-13] MEDS: HEPARIN 5000 UNIT/ML 1 ML VIAL SQ SCH ×3 (00:26→17:00)
[2023-02-13 02:18] LABS: Absolute Lymphocytes (CBC) 1.5 K/uL (0.7-4.9); Hematocrit 26.6 % (39.6-49.0); MCV 83.1 fL (80-100); MPV 8.8 fL (7.6-11.3); Platelets 158 thou/uL (152-406)
[2023-02-13 03:04] LABS: ALT/SGPT 21 U/L (16-61); AST/SGOT 24 U/L (15-37); Albumin 2.3 g/dL (3.4-5.0); Alkaline Phosphatase 58 U/L (45-117); BUN Blood Urea Nitrogen 67 mg/dL (7-18); Bicarbonate 27 mEq/L (21-32); Bilirubin Direct < 0.1 mg/dL (0-0.2); Bilirubin Indirect, Calculated ND mg/dL (0.2-0.8); Bilirubin Total 0.2 mg/dL (0.2-1.0); Glomerular Filtration Rate 10 ml/min (=/>90); Glucose Level 93 mg/dL (74-106); Potassium 4.1 mEq/L (3.5-5.1); Protein, Total 5.8 g/dL (6.4-8.2); Sodium Level 137 mEq/L (136-145); Uric Acid 6.4 mg/dL (3.5-7.2)
[2023-02-13 07:41] LABS: Specific Gravity 1.011 (1.005-1.030); Urine Bacteria None Seen /HPF (<20); Urine Bilirubin NEGATIVE (Negative); Urine Blood 1+ (Negative); Urine Clarity Clear (Clear); Urine Color Colorless (Yellow); Urine Glucose NEGATIVE (Negative); Urine Protein 1+ (Negative); Urine Urobilinogen Normal (Normal)
[2023-02-13] MEDS: LOSARTAN POTASSIUM 50 MG TABLET PO SCH ×2 (08:13→20:13)
[2023-02-13] MEDS: NIFEDIPINE XL 90 MG TABLET PO SCH ×2 (08:13→20:13)
[2023-02-13] MEDS: DOCUSATE NA 100 MG CAP PO SCH ×2 (08:13→20:13)
[2023-02-13] MEDS: MUPIROCIN 2% OINT 22GM TUBE TOP SCH (08:14)
[2023-02-13] MEDS: NEPRO SHAKE 237 ML CAN PO SCH ×3 (08:14→20:17)
[2023-02-13] MEDS: FUROSEMIDE 40 MG TABLET PO SCH (08:14)
[2023-02-13] MEDS: CALCITROL 0.25 MCG CAP PO SCH (08:14)
[2023-02-13] MEDS: HYDRALAZINE HCL 25 MG TABLET PO SCH ×3 (08:14→20:13)
[2023-02-13] MEDS: DRISDOL (VITAMIN D=ERGOCALCIFEROL) 50000 UNIT CAP PO SCH (08:14)
[2023-02-13 08:27] LABS: UR MICROALBUMIN 66.3 mg/dL (< 1.9); UR PROTEIN 67.2 mg/dL (<11.9); Urine Protein/Creatinine Ratio 0.5 ratio (<0.15)
--- NOTE | 2023-02-13 11:06 | P.PN ---
Subjective Date of Service: 02/13/23 Chief Complaint: Hypertension, renal failure Subjective: No new changes, Improving, Doing well Alert oriented x 3 NAD Vitals stable Patient denies any pain or discomfort <David Zuniga - Last Filed: 02/13/23 10:59> Date of Service: 02/13/23 <Renee Munoz - Last Filed: 02/13/23 15:03> Review of Systems 10-point ROS is otherwise unremarkable <David Zuniga - Last Filed: 02/13/23 10:59> Physical Examination - Vital Signs Temperature: 98.0 F Blood Pressure: 162/85 Pulse: 58 Respirations: 16 Pulse Ox (%): 97 - Physical Exam General: Alert, In no apparent distress HEENT: Atraumatic, Normocephalic Neck: Supple, 2+ carotid pulse no bruit Respiratory: Clear to auscultation bilaterally, Normal air movement Cardiovascular: No edema, Normal pulses, Regular rate/rhythm Capillary refill: <2 Seconds Gastrointestinal: Normal bowel sounds, Soft and benign Musculoskeletal: No clubbing, No swelling Integumentary: No rashes, No breakdown Neurological: Normal speech, Normal tone, Normal affect <David Zuniga - Last Filed: 02/13/23 10:59> Assessment And Plan - Current Problems (Diagnosis) (1) BELL (acute kidney injury) Current Visit: Yes Status: Acute (2) CKD stage 5 secondary to hypertension Current Visit: Yes Status: Chronic (3) Anemia in CKD (chronic kidney disease) Current Visit: Yes Status: Chronic Qualifiers: Chronic kidney disease stage: stage 5, not on chronic dialysis Qualified Code(s): N18.5 - Chronic kidney disease, stage 5; D63.1 - Anemia in chronic kidney disease (4) Lump on face Current Visit: Yes Status: Acute (5) Proteinuria Current Visit: Yes Status: Acute Qualifiers: Proteinuria type: unspecified Qualified Code(s): R80.9 - Proteinuria, unspecified (6) Hematuria, microscopic Current Visit: Yes Status: Acute (7) NSTEMI (non-ST elevated myocardial infarction) Current Visit: Yes Status: Acute (8) Substance use disorder Current Visit: Yes Status: Acute - Plan Hypertensive Emergency: improved. Will continue nifedipine, hydralazine, furosemide, and clonidine as needed. Blood pressure improving Hold off on beta-blockers given cocaine use GFR 10, BUN 67, creatinine 6.17 Acute Kidney Injury on Chronic Kidney Disease Stage V: GFR 10, BUN 67, creatinine 6.17 Pt likely has ESRD. started on HD. Nephrology is following. Renal ultrasound = "Increased echogenicity of the kidneys bilaterally consistent medical renal disease. No hydronephrosis. Benign left renal cyst. Anemia of Chronic Kidney Disease: Hgb is 8.9 hematocrit 26.6. Will monitor H/H. NSTEMI: Serial troponin: 248.5 -> 290.2 -> 263.4 -> 223.9. Transthoracic echocardiogram showed normal left ventricular ejection fraction greater than 60% 2. normal wall motion 3. severe concentric left ventricular hypertrophy 4. diastolic dysfunction 5. mild aortic insufficiency. Pedunculated Left Perimandibular Cutaneous/Subcutaneous Mass (3 x 2.8 x 2.7 cm) and left Supraorbital Subcutaneous Mass (1.4 x 1.2 x 1.1 cm): Biopsy performed on 02/06/2023 consistent with pyogenic granuloma. Consulted Otorhinolaryngology and spoke with Dr. Montes. Recommendations appreciated. Recommends mupirocin topical daily Chronic Compensated Diastolic Congestive Heart Failure: will continue lasix, strict I/O, daily weight and low salt diet. Echo shows "1. normal left ventricular ejection fraction greater than 60% 2. normal wall motion 3. severe concentric left ventricular hypertrophy 4. diastolic dysfunction 5. mild aortic insufficiency" Avoid BB due to cocaine abuse. Microscopic Hematuria: Urinalysis = 3+ blood, 21-50 WBCs, 3+ protein. He will require outpatient follow-up to evaluate for urologic malignancy Substance Use Disorder: Pt was advised to stop using cocaine Discharge Plan: Home Plan to discharge in: 48 Hours - Code Status/Comfort Care Code Status Assessed: Yes Code Status: Full Code Physician Review: Patient Assessed, Agree with Above Assessment and Plan (Full code) Critical Care: No Time Spent Managing PTS Care (In Minutes): 35 (Minutes) <David Zuniga - Last Filed: 02/13/23 10:59> - Plan Pt seen and examined. i agree with the note by the PROGRAM DIRECTOR [employer] TELEVISION. Pt is waiting for HD. Will optimize BP regimen. He had 8 runs of V-tach. Will replete magnesium and consult Cardiology <Renee Munoz - Last Filed: 02/13/23 15:03>
[2023-02-13] MEDS ORDERED: MAGNESIUM SULFATE 1 gm IVPB 1 GM/100 ML BAG IV ONE (15:01)
--- NOTE | 2023-02-13 19:11 | P.PN ---
Date of Service: 02/13/23 Vital Signs Temp Pulse Resp BP Pulse Ox 98.1 F 59 16 186/83 H 99 02/13/23 12:00 02/13/23 12:00 02/13/23 12:00 02/13/23 12:00 02/13/23 12:00 Medications Calcitriol (Calcitrol 0.25 Mcg Cap) 0.5 mcg PO DAILY [facility] Last Admin: 02/13/23 08:14 Dose: 0.5 mcg Clonidine HCl (Clonidine Hcl 0.1 Mg Tab) 0.1 mg PO Q6H PRN PRN Reason: Titrate to SBP (MUST DEFINE) Docusate Sodium (Docusate Na 100 Mg Cap) 100 mg PO BID [facility] Last Admin: 02/13/23 08:13 Dose: 100 mg Enteral Nutritional Formula (Nepro Shake 237 Ml Can) 240 ml PO TID [facility] Last Admin: 02/13/23 13:55 Dose: 240 ml Ergocalciferol (Drisdol (Vitamin D=Ergocalciferol) 41746 Unit Cap) 50,000 unit PO Q48H [facility] Stop: 02/15/23 09:01 Last Admin: 02/13/23 08:14 Dose: 50,000 unit Furosemide (Furosemide 40 Mg Tablet) 40 mg PO DAILY [facility] Last Admin: 02/13/23 08:14 Dose: 40 mg Heparin Sodium (Porcine) (Heparin 5000 Unit/Ml 1 Ml Vial) 5,000 unit SQ Q8HR [facility] Last Admin: 02/13/23 17:00 Dose: Not Given Heparin Sodium (Porcine) (Heparin 1,000 Unit/Ml Vial) 6,000 unit IV EVERY HD PRN PRN Reason: FOR DIALYSIS CATHETER CARE Last Admin: 02/13/23 18:32 Dose: 6,000 unit Heparin Sodium (Porcine) (Heparin 1,000 Unit/Ml Vial) 2,000 unit IV EVERY HD PRN PRN Reason: anticoagulation with ea. HD tx Last Admin: 02/13/23 15:25 Dose: 2,000 unit Hydralazine HCl (Hydralazine Hcl 20 Mg/Ml Vial) 10 mg IV Q4HP PRN PRN Reason: Goal to achieve SBP in comment Last Admin: 02/11/23 00:30 Dose: 10 mg Hydralazine HCl (Hydralazine Hcl 25 Mg Tablet) 100 mg PO TID [facility] Last Admin: 02/13/23 13:55 Dose: 100 mg Losartan Potassium (Losartan Potassium 50 Mg Tablet) 50 mg PO BID [facility] Last Admin: 02/13/23 08:13 Dose: 50 mg Mupirocin (Mupirocin 2% Oint 22gm Tube) 1 appl TOP DAILY [facility] Last Admin: 02/13/23 08:14 Dose: 1 appl Nifedipine (Nifedipine Xl 90 Mg Tablet) 90 mg PO BID [facility] Last Admin: 02/13/23 08:13 Dose: 90 mg Ondansetron HCl (Ondansetron 4 Mg/2 Ml Vial) 4 mg IV Q6HP PRN PRN Reason: NAUSEA / VOMITING Assessment/ Plan: Nephrology No dyspnea No chest pain Feeling better No acute events overnight Vitals, medications, blood work and imaging reviewed in the chart. NAD. NCAT. MMM. Neck supple. Normal respiratory effort. RRR. Abd ND. No C/C. LE Edema none. No rash. AAO. Normal speech. Stage III BELL in the setting of HTN Prior CKD stage unclear but likely CKD IV/ V with Proteinuria -HD initiated -HBV & HCV negative -Dialysis placement pending HTN with CKD -Continue Losartan and Nifedipine -Continue Hydralazine -Start Doxazosin -Change Clonidine PRN Anemia in CKD -PRBC prn -Retacrit PRN CKD MBD -Continue Ergo -Continue Calcitriol Hospitalist note reviewed
[2023-02-13] MEDS: DOXAZOSIN 4 MG TAB PO SCH (20:13)
[2023-02-14] MEDS: HEPARIN 5000 UNIT/ML 1 ML VIAL SQ SCH ×3 (01:29→17:35)
[2023-02-14] MEDS: MUPIROCIN 2% OINT 22GM TUBE TOP SCH (08:36)
[2023-02-14] MEDS: HYDRALAZINE HCL 25 MG TABLET PO SCH ×3 (08:36→21:02)
[2023-02-14] MEDS: FUROSEMIDE 40 MG TABLET PO SCH (08:37)
[2023-02-14] MEDS: NIFEDIPINE XL 90 MG TABLET PO SCH ×2 (08:37→21:01)
[2023-02-14] MEDS: CALCITROL 0.25 MCG CAP PO SCH (08:37)
[2023-02-14] MEDS: DOXAZOSIN 4 MG TAB PO SCH ×2 (08:37→21:00)
[2023-02-14] MEDS: LOSARTAN POTASSIUM 50 MG TABLET PO SCH ×2 (08:37→21:02)
[2023-02-14] MEDS: DOCUSATE NA 100 MG CAP PO SCH ×2 (08:38→21:01)
[2023-02-14] MEDS: NEPRO SHAKE 237 ML CAN PO SCH ×3 (08:38→21:00)
--- NOTE | 2023-02-14 11:06 | P.PN ---
Subjective Date of Service: 02/14/23 Chief Complaint: Hypertension, renal failure Subjective: No new changes, No C/O voiced, Improving, Doing well Alert oriented x 3 NAD Vitals stable Patient denies any pain or discomfort <David Zuniga - Last Filed: 02/14/23 11:00> Date of Service: 02/15/23 <Renee Munoz [place] - Last Filed: 02/15/23 06:59> Review of Systems 10-point ROS is otherwise unremarkable <David Zuniga - Last Filed: 02/14/23 11:00> Physical Examination - Vital Signs Temperature: 97.6 F Blood Pressure: 143/77 Pulse: 72 Respirations: 97 Pulse Ox (%): 98 - Physical Exam General: Alert, Oriented x3 HEENT: Atraumatic, Normocephalic Neck: Supple, 2+ carotid pulse no bruit Respiratory: Clear to auscultation bilaterally, Normal air movement Cardiovascular: No edema, Normal pulses, Regular rate/rhythm Capillary refill: <2 Seconds Gastrointestinal: Normal bowel sounds, Soft and benign, Non-distended Musculoskeletal: No clubbing, No swelling, No erythema Integumentary: Other (Left Perimandibular Cutaneous/Subcutaneous Mass (3 x 2.8 x 2.7 cm) and left Supraorbital Subcutaneous Mass (1.4 x 1.2 x 1.1 cm)- healing wounds) Neurological: Normal gait, Normal speech, Normal tone, Normal affect <David Zuniga - Last Filed: 02/14/23 11:00> Assessment And Plan - Current Problems (Diagnosis) (1) BELL (acute kidney injury) Current Visit: Yes Status: Acute (2) CKD stage 5 secondary to hypertension Current Visit: Yes Status: Chronic (3) Anemia in CKD (chronic kidney disease) Current Visit: Yes Status: Chronic Qualifiers: Chronic kidney disease stage: stage 5, not on chronic dialysis Qualified Code(s): N18.5 - Chronic kidney disease, stage 5; D63.1 - Anemia in chronic kidney disease (4) Lump on face Current Visit: Yes Status: Acute (5) Proteinuria Current Visit: Yes Status: Acute Qualifiers: Proteinuria type: unspecified Qualified Code(s): R80.9 - Proteinuria, unspecified (6) Hematuria, microscopic Current Visit: Yes Status: Acute (7) NSTEMI (non-ST elevated myocardial infarction) Current Visit: Yes Status: Acute (8) Substance use disorder Current Visit: Yes Status: Acute - Plan Hypertensive Emergency: improved. Will continue nifedipine, hydralazine, furos emide, and clonidine as needed. Blood pressure improving Hold off on beta-blockers given cocaine use GFR 10, BUN 67, creatinine 6.17 Acute Kidney Injury on Chronic Kidney Disease Stage V: GFR 10, BUN 67, creatinine 6.17 Pt likely has ESRD. started on HD. Nephrology is following. Renal ultrasound = "Increased echogenicity of the kidneys bilaterally consistent medical renal disease. No hydronephrosis. Benign left renal cyst. Anemia of Chronic Kidney Disease: Hgb is 8.9 hematocrit 26.6. Will monitor H/H. NSTEMI: Serial troponin: 248.5 -> 290.2 -> 263.4 -> 223.9. Transthoracic echocardiogram showed normal left ventricular ejection fraction greater than 60% 2. normal wall motion 3. severe concentric left ventricular hypertrophy 4. diastolic dysfunction 5. mild aortic insufficiency. Pedunculated Left Perimandibular Cutaneous/Subcutaneous Mass (3 x 2.8 x 2.7 cm) and left Supraorbital Subcutaneous Mass (1.4 x 1.2 x 1.1 cm): Biopsy performed on 02/06/2023 consistent with pyogenic granuloma. Consulted Otorhinolaryngology and spoke with Dr. Montes. Recommendations appreciated. Recommends mupirocin topical daily Chronic Compensated Diastolic Congestive Heart Failure: will continue lasix, strict I/O, daily weight and low salt diet. Echo shows "1. normal left ventricular ejection fraction greater than 60% 2. normal wall motion 3. severe concentric left ventricular hypertrophy 4. diastolic dysfunction 5. mild aortic insufficiency" Avoid BB due to cocaine abuse. Microscopic Hematuria: Urinalysis = 3+ blood, 21-50 WBCs, 3+ protein. He will require outpatient follow-up to evaluate for urologic malignancy Substance Use Disorder: Pt was advised to stop using cocaine Physician Review: Patient Assessed, Agree with Above Assessment and Plan (Full code) <David Zuniga - Last Filed: 02/14/23 11:00> - Plan Pt seen and examined. I agree with the note by the PLASTER BLOCK LAYER. Will optimize BP regimen. Pt is waiting for outpt dialysis chair set up . <Renee Munoz - Last Filed: 02/15/23 06:59>
[2023-02-14 11:48] LABS: Phosphorus 3.9 mg/dL (2.5-4.9); Potassium 3.9 mEq/L (3.5-5.1)
--- NOTE | 2023-02-14 13:24 | P.PN ---
Date of Service: 02/14/23 Vital Signs Temp Pulse Resp BP Pulse Ox 97.6 F 72 97 H 143/77 H 98 02/14/23 11:08 02/14/23 11:08 02/14/23 11:08 02/14/23 11:08 02/14/23 11:08 Medications Calcitriol (Calcitrol 0.25 Mcg Cap) 0.5 mcg PO DAILY [facility] Last Admin: 02/14/23 08:37 Dose: 0.5 mcg Clonidine HCl (Clonidine Hcl 0.1 Mg Tab) 0.1 mg PO Q6H PRN PRN Reason: Titrate to SBP (MUST DEFINE) Docusate Sodium (Docusate Na 100 Mg Cap) 100 mg PO BID [facility] Last Admin: 02/14/23 08:38 Dose: 100 mg Doxazosin Mesylate (Doxazosin 4 Mg Tab) 4 mg PO BID [facility] Last Admin: 02/14/23 08:37 Dose: 4 mg Enteral Nutritional Formula (Nepro Shake 237 Ml Can) 240 ml PO TID [facility] Last Admin: 02/14/23 08:38 Dose: 240 ml Ergocalciferol (Drisdol (Vitamin D=Ergocalciferol) 61434 Unit Cap) 50,000 unit PO Q48H [facility] Stop: 02/15/23 09:01 Last Admin: 02/13/23 08:14 Dose: 50,000 unit Furosemide (Furosemide 40 Mg Tablet) 40 mg PO DAILY [facility] Last Admin: 02/14/23 08:37 Dose: 40 mg Heparin Sodium (Porcine) (Heparin 5000 Unit/Ml 1 Ml Vial) 5,000 unit SQ Q8HR [facility] Last Admin: 02/14/23 08:38 Dose: 5,000 unit Heparin Sodium (Porcine) (Heparin 1,000 Unit/Ml Vial) 6,000 unit IV EVERY HD PRN PRN Reason: FOR DIALYSIS CATHETER CARE Last Admin: 02/13/23 18:32 Dose: 6,000 unit Heparin Sodium (Porcine) (Heparin 1,000 Unit/Ml Vial) 2,000 unit IV EVERY HD PRN PRN Reason: anticoagulation with ea. HD tx Last Admin: 02/13/23 15:25 Dose: 2,000 unit Hydralazine HCl (Hydralazine Hcl 20 Mg/Ml Vial) 10 mg IV Q4HP PRN PRN Reason: Goal to achieve SBP in comment Last Admin: 02/11/23 00:30 Dose: 10 mg Hydralazine HCl (Hydralazine Hcl 25 Mg Tablet) 100 mg PO TID [facility] Last Admin: 02/14/23 08:36 Dose: 100 mg Losartan Potassium (Losartan Potassium 50 Mg Tablet) 50 mg PO BID [facility] Last Admin: 02/14/23 08:37 Dose: 50 mg Mupirocin (Mupirocin 2% Oint 22gm Tube) 1 appl TOP DAILY [facility] Last Admin: 02/14/23 08:36 Dose: 1 appl Nifedipine (Nifedipine Xl 90 Mg Tablet) 90 mg PO BID [facility] Last Admin: 02/14/23 08:37 Dose: 90 mg Ondansetron HCl (Ondansetron 4 Mg/2 Ml Vial) 4 mg IV Q6HP PRN PRN Reason: NAUSEA / VOMITING Assessment/ Plan: Nephrology No dyspnea No chest pain Feeling better No acute events overnight Vitals, medications, blood work and imaging reviewed in the chart. NAD. NCAT. MMM. Neck supple. Normal respiratory effort. RRR. Abd ND. No C/C. LE Edema none. No rash. AAO. Normal speech. Stage III BELL in the setting of HTN Prior CKD stage unclear but likely CKD IV/ V with Proteinuria -HD initiated -HBV & HCV negative -Dialysis placement pending HTN with CKD -Continue Losartan and Nifedipine -Continue Hydralazine -Continue Doxazosin -Clonidine PRN Anemia in CKD -PRBC prn -Retacrit X1 CKD MBD -Continue Ergo -Continue Calcitriol Hospitalist note reviewed
[2023-02-14] MEDS ORDERED: EPOETIN ALFA 10,000 UNIT/ML VIAL SQ ONE (14:00)
[2023-02-15] MEDS: HEPARIN 5000 UNIT/ML 1 ML VIAL SQ SCH ×3 (00:28→17:21)
[2023-02-15 02:43] LABS: Absolute Lymphocytes (CBC) 1.2 K/uL (0.7-4.9); Hematocrit 26.6 % (39.6-49.0); Lymphocytes % 31.3 % (15.3-44.8); MCV 82.8 fL (80-100); MPV 8.7 fL (7.6-11.3); Platelets 153 thou/uL (152-406); RBC Red Blood Cell Count 3.21 M/uL (4.33-5.43)
[2023-02-15] MEDS: MUPIROCIN 2% OINT 22GM TUBE TOP SCH (09:00)
[2023-02-15] MEDS: NEPRO SHAKE 237 ML CAN PO SCH ×3 (09:00→20:50)
[2023-02-15] MEDS: DOXAZOSIN 4 MG TAB PO SCH ×2 (09:24→20:48)
[2023-02-15] MEDS: CALCITROL 0.25 MCG CAP PO SCH (09:44)
[2023-02-15] MEDS: HYDRALAZINE HCL 25 MG TABLET PO SCH ×3 (09:44→21:30)
[2023-02-15] MEDS: NIFEDIPINE XL 90 MG TABLET PO SCH ×2 (09:44→20:49)
[2023-02-15] MEDS: DOCUSATE NA 100 MG CAP PO SCH ×2 (09:44→20:48)
[2023-02-15] MEDS: FUROSEMIDE 40 MG TABLET PO SCH (09:45)
[2023-02-15] MEDS: LOSARTAN POTASSIUM 50 MG TABLET PO SCH ×2 (09:46→20:49)
[2023-02-15] MEDS: DRISDOL (VITAMIN D=ERGOCALCIFEROL) 50000 UNIT CAP PO SCH (09:48)
--- NOTE | 2023-02-15 10:38 | P.PN ---
Subjective Date of Service: 02/15/23 Chief Complaint: Hypertension, renal failure Subjective: No new changes, Improving, Doing well Alert oriented x 3 NAD Vitals stable Patient denies any pain or discomfort <David Zuniga - Last Filed: 02/15/23 10:36> Date of Service: 02/17/23 <Renee Munoz - Last Filed: 02/17/23 13:37> Review of Systems 10-point ROS is otherwise unremarkable <David Zuniga - Last Filed: 02/15/23 10:36> Physical Examination - Vital Signs Temperature: 98.3 F Blood Pressure: 140/72 Pulse: 73 Respirations: 16 Pulse Ox (%): 98 - Physical Exam General: Alert, Oriented x3 HEENT: Atraumatic, Normocephalic Neck: Supple, 2+ carotid pulse no bruit Cardiovascular: No edema, Normal pulses Capillary refill: <2 Seconds Gastrointestinal: Normal bowel sounds, Hypoactive, Soft and benign Musculoskeletal: No clubbing, No swelling Integumentary: No rashes, No breakdown Neurological: Normal speech, Normal affect <David Zuniga - Last Filed: 02/15/23 10:36> Assessment And Plan - Current Problems (Diagnosis) (1) BELL (acute kidney injury) Status: Acute (2) CKD stage 5 secondary to hypertension Status: Chronic (3) Anemia in CKD (chronic kidney disease) Status: Chronic Qualifiers: Chronic kidney disease stage: stage 5, not on chronic dialysis Qualified Code(s): N18.5 - Chronic kidney disease, stage 5; D63.1 - Anemia in chronic kidney disease (4) Lump on face Status: Acute (5) Proteinuria Status: Acute Qualifiers: Proteinuria type: unspecified Qualified Code(s): R80.9 - Proteinuria, unspecified (6) Hematuria, microscopic Status: Acute (7) NSTEMI (non-ST elevated myocardial infarction) Status: Acute (8) Substance use disorder Status: Acute - Plan Hypertensive Emergency: improved. Will continue nifedipine, hydralazine, furosemide, and clonidine as needed. Blood pressure improving Hold off on beta-blockers given cocaine use GFR 10, BUN 67, creatinine 6.17 Acute Kidney Injury on Chronic Kidney Disease Stage V: GFR 10, BUN 67, creatinine 6.17 Pt likely has ESRD. started on HD. Nephrology is following. Renal ultrasound = "Increased echogenicity of the kidneys bilaterally consistent medical renal disease. No hydronephrosis. Benign left renal cyst. Anemia of Chronic Kidney Disease: Hgb is 8.9 hematocrit 26.6. Will monitor H/H. NSTEMI: Serial troponin: 248.5 -> 290.2 -> 263.4 -> 223.9. Transthoracic echocardiogram showed normal left ventricular ejection fraction greater than 60% 2. normal wall motion 3. severe concentric left ventricular hypertrophy 4. diastolic dysfunction 5. mild aortic insufficiency. Pedunculated Left Perimandibular Cutaneous/Subcutaneous Mass (3 x 2.8 x 2.7 cm) and left Supraorbital Subcutaneous Mass (1.4 x 1.2 x 1.1 cm): Biopsy performed on 02/06/2023 consistent with pyogenic granuloma. Consulted Otorhinolaryngology and spoke with Dr. Montes. Recommendations appreciated. Recommends mupirocin topical daily Chronic Compensated Diastolic Congestive Heart Failure: will continue lasix, strict I/O, daily weight and low salt diet. Echo shows "1. normal left ventricular ejection fraction greater than 60% 2. normal wall motion 3. severe concentric left ventricular hypertrophy 4. diastolic dysfunction 5. mild aortic insufficiency" Avoid BB due to cocaine abuse. Microscopic Hematuria: Urinalysis = 3+ blood, 21-50 WBCs, 3+ protein. He will require outpatient follow-up to evaluate for urologic malignancy Substance Use Disorder: Pt was advised to stop using cocaine Discharge Plan: Home Plan to discharge in: 24 Hours - Code Status/Comfort Care Code Status Assessed: Yes (full code) Code Status: Full Code Physician Review: Patient Assessed, Agree with Above Assessment and Plan (Full code) Critical Care: No Time Spent Managing PTS Care (In Minutes): 35 (minutes) <David Zuniga - Last Filed: 02/15/23 10:36> - Plan Pt seen and examined. I agree with the note by the CALCULATION CLERK. Waiting for set up of dialysis chair on outpt. <Renee Munoz - Last Filed: 02/17/23 13:37>
--- NOTE | 2023-02-15 11:14 | P.PN ---
Date of Service: 02/15/23 Vital Signs Temp Pulse Resp BP Pulse Ox 98.3 F 73 16 140/72 98 02/15/23 10:38 02/15/23 10:38 02/15/23 10:38 02/15/23 10:38 02/15/23 10:38 Medications Calcitriol (Calcitrol 0.25 Mcg Cap) 0.5 mcg PO DAILY [facility] Last Admin: 02/15/23 09:44 Dose: 0.5 mcg Clonidine HCl (Clonidine Hcl 0.1 Mg Tab) 0.1 mg PO Q6H PRN PRN Reason: Titrate to SBP (MUST DEFINE) Docusate Sodium (Docusate Na 100 Mg Cap) 100 mg PO BID [facility] Last Admin: 02/15/23 09:44 Dose: 100 mg Doxazosin Mesylate (Doxazosin 4 Mg Tab) 4 mg PO BID [facility] Last Admin: 02/15/23 09:24 Dose: 4 mg Enteral Nutritional Formula (Nepro Shake 237 Ml Can) 240 ml PO TID [facility] Last Admin: 02/15/23 09:00 Dose: 240 ml Furosemide (Furosemide 40 Mg Tablet) 40 mg PO DAILY [facility] Last Admin: 02/15/23 09:45 Dose: 40 mg Heparin Sodium (Porcine) (Heparin 5000 Unit/Ml 1 Ml Vial) 5,000 unit SQ Q8HR [facility] Last Admin: 02/15/23 09:24 Dose: 5,000 unit Heparin Sodium (Porcine) (Heparin 1,000 Unit/Ml Vial) 6,000 unit IV EVERY HD PRN PRN Reason: FOR DIALYSIS CATHETER CARE Last Admin: 02/13/23 18:32 Dose: 6,000 unit Heparin Sodium (Porcine) (Heparin 1,000 Unit/Ml Vial) 2,000 unit IV EVERY HD PRN PRN Reason: anticoagulation with ea. HD tx Last Admin: 02/13/23 15:25 Dose: 2,000 unit Hydralazine HCl (Hydralazine Hcl 20 Mg/Ml Vial) 10 mg IV Q4HP PRN PRN Reason: Goal to achieve SBP in comment Last Admin: 02/11/23 00:30 Dose: 10 mg Hydralazine HCl (Hydralazine Hcl 25 Mg Tablet) 100 mg PO TID [facility] Last Admin: 02/15/23 09:44 Dose: 100 mg Losartan Potassium (Losartan Potassium 50 Mg Tablet) 50 mg PO BID [facility] Last Admin: 02/15/23 09:46 Dose: 50 mg Mupirocin (Mupirocin 2% Oint 22gm Tube) 1 appl TOP DAILY [facility] Last Admin: 02/15/23 09:00 Dose: 1 appl Nifedipine (Nifedipine Xl 90 Mg Tablet) 90 mg PO BID [facility] Last Admin: 02/15/23 09:44 Dose: 90 mg Ondansetron HCl (Ondansetron 4 Mg/2 Ml Vial) 4 mg IV Q6HP PRN PRN Reason: NAUSEA / VOMITING Assessment/ Plan: Nephrology No dyspnea No chest pain Feeling better No acute events overnight Vitals, medications, blood work and imaging reviewed in the chart. NAD. NCAT. MMM. Neck supple. Normal respiratory effort. RRR. Abd ND. No C/C. LE Edema none. No rash. AAO. Normal speech. Stage III BELL in the setting of HTN Prior CKD stage unclear but likely CKD IV/ V with Proteinuria ESRD -HD initiated -HBV & HCV negative -Dialysis placement pending HTN with CKD -Continue Losartan and Nifedipine -Continue Hydralazine -Continue Doxazosin -Clonidine PRN Anemia in CKD -PRBC prn -Retacrit prn CKD MBD -Continue Ergo -Continue Calcitriol Hospitalist note reviewed
[2023-02-15 12:26] LABS: Magnesium 2.2 mg/dL (1.6-2.4); Phosphorus 3.6 mg/dL (2.5-4.9); Potassium 4.3 mEq/L (3.5-5.1)
[2023-02-15 21:31] VITALS: O2SAT 98
[2023-02-16] MEDS: HEPARIN 5000 UNIT/ML 1 ML VIAL SQ SCH ×2 (00:36→09:36)
[2023-02-16 03:26] LABS: Absolute Lymphocytes (CBC) 1.3 K/uL (0.7-4.9); Hematocrit 28.7 % (39.6-49.0); Lymphocytes % 31.7 % (15.3-44.8); MCV 83.5 fL (80-100); MPV 9.2 fL (7.6-11.3); Platelets 163 thou/uL (152-406); RBC Red Blood Cell Count 3.43 M/uL (4.33-5.43)
[2023-02-16 03:39] LABS: Magnesium 2.1 mg/dL (1.6-2.4); Phosphorus 3.5 mg/dL (2.5-4.9); Potassium 4.3 mEq/L (3.5-5.1)
[2023-02-16] MEDS ORDERED: LIDOCAINE HCL/EPINEPHRINE 20 ML MDV IJ SCH (06:00)
[2023-02-16] MEDS: MUPIROCIN 2% OINT 22GM TUBE TOP SCH (09:33)
[2023-02-16] MEDS: CALCITROL 0.25 MCG CAP PO SCH (09:34)
[2023-02-16] MEDS: HYDRALAZINE HCL 25 MG TABLET PO SCH ×2 (09:34→13:24)
[2023-02-16] MEDS: FUROSEMIDE 40 MG TABLET PO SCH (09:34)
[2023-02-16] MEDS: DOCUSATE NA 100 MG CAP PO SCH (09:35)
[2023-02-16] MEDS: DOXAZOSIN 4 MG TAB PO SCH (09:35)
[2023-02-16] MEDS: NIFEDIPINE XL 90 MG TABLET PO SCH (09:35)
[2023-02-16] MEDS: LOSARTAN POTASSIUM 50 MG TABLET PO SCH (09:35)
[2023-02-16] MEDS: NEPRO SHAKE 237 ML CAN PO SCH ×2 (09:45→13:25)
--- NOTE | 2023-02-16 11:42 | P.DS ---
Admission Date: 02/06/23 Discharge Date: 02/16/23 Reason for Admission: Hypertension, renal failure - Problems (1) BELL (acute kidney injury) Status: Acute (2) CKD stage 5 secondary to hypertension Status: Chronic (3) Anemia in CKD (chronic kidney disease) Status: Chronic Qualifiers: Chronic kidney disease stage: stage 5, not on chronic dialysis Qualified Code(s): N18.5 - Chronic kidney disease, stage 5; D63.1 - Anemia in chronic kidney disease (4) Lump on face Status: Acute (5) Proteinuria Status: Acute Qualifiers: Proteinuria type: unspecified Qualified Code(s): R80.9 - Proteinuria, unspecified (6) Hematuria, microscopic Status: Acute (7) NSTEMI (non-ST elevated myocardial infarction) Status: Acute (8) Substance use disorder Status: Acute Brief History of Present Illness: History of Present Illness: 62-year-old male patient with no known medical problems presented to the emergency department with lump over left side of his face Patient is a poor historian, does not have established care as an outpatient Presented to the emergency department today with complaints of lump on the left side of the face. As per the patient it first appeared approximately 4 months back. Gradually increasing in size No history of any trauma, denies any pain. No fever or chills The patient was evaluated in the ED A CT scan of the facial bones was done which showed a superficial mass Was found to have elevated blood pressures with systolic blood pressure of greater than 200 mmHg He also found to have renal failure with creatinine of 8.1. Patient was given IV hydralazine, oral Norvasc but the blood pressure is still high. He was started on Cardene drip. Lesion on the left side of the face was excised by the ED attending. Hospital Course: Mr. Melvin, is a pleasant 62-year-old male patient with a past medical history significant for with no known medical problems who was [facility] on 02/06/2023 and hypertensive emergency, acute renal failure, lump on the face and elevated troponin. Patient was admitted in the hospital, ICU for close monitoring of the blood pressure after starting the patient on multiple antihypertensive medications, nephrology consulted started on hemodialysis. On 02/16/2023, patient was seen on morning rounds and deemed medically stable for discharge. Patient was discharged with instructions to schedule follow-up appointments with PCP in 3 to 5 days, automotive accessory installer in 1 week, label stamper in 2 weeks.. Patient was provided prescriptions for antihypertensive medications including losartan, nifedipine, hydralazine. The patient and family members was given the opportunity to ask questions and reported no further questions. Patient was explained the importance of continuing the antihypertensive medications and hemodialysis. Patient voiced understanding and agreed to continue the medications and continue hemodialysis. Furthermore, all questions were answered to the best of my ability. Follow-up 1. Please call and schedule a follow-up appointment with your PCP in 3-5 days 2. Please call and schedule a follow-up appointment with 7 days 3. Please call and schedule a follow-up appointment with 14 days - Please follow-up with your PCP for medication refills/adjustments <David Zuniga - Last Filed: 02/16/23 11:42> Admission Date: 02/06/23 Discharge Date: 02/17/23 Hospital Course: Pt seen and examined. I agree with the note by the RECRUITING INTERN. Ok to discharge pt. He did not qualify for dialysis chair on outpt. Pt was advised to come to the ER 2 - 3 times per week for dialysis. Continue home meds <Renee Munoz - Last Filed: 02/17/23 13:22> Disposition: ROUTINE DISCHARGE Discharge Condition: GOOD Vital Signs/Physical Exam: Temp Pulse Resp BP Pulse Ox 98.1 F 86 18 177/81 H 97 02/16/23 08:00 02/16/23 09:35 02/16/23 08:00 02/16/23 09:35 02/16/23 08:00 General: Alert, Oriented x3 HEENT: Atraumatic, Normocephalic Neck: Supple, 2+ carotid pulse no bruit Respiratory: Clear to auscultation bilaterally, Normal air movement Cardiovascular: No edema, Normal pulses Capillary refill: <2 Seconds Gastrointestinal: Normal bowel sounds, Soft and benign Musculoskeletal: No clubbing, No swelling Integumentary: No rashes Neurological: Normal gait, Normal speech Laboratory Data at Discharge: WBC 4.00 thou/uL (4.3-10.9) L 02/16/23 02:42 Hgb 9.6 g/dL (13.6-17.9) L 02/16/23 02:42 Hct 28.7 % (39.6-49.0) L 02/16/23 02:42 Plt Count 163 thou/uL (152-406) 02/16/23 02:42 PT 11.7 SECONDS (9.5-12.5) 02/07/23 04:11 INR 1.07 02/07/23 04:11 APTT 29.8 SECONDS (24.3-36.9) 02/07/23 04:11 Sodium 136 mEq/L (136-145) 02/16/23 02:42 Potassium 4.3 mEq/L (3.5-5.1) 02/16/23 02:42 BUN 47 mg/dL (7-18) H 02/16/23 02:42 Creatinine 4.73 mg/dL (0.70-1.30) H 02/16/23 02:42 Glucose 126 mg/dL (74-106) H 02/16/23 02:42 Uric Acid 6.4 mg/dL (3.5-7.2) 02/13/23 01:43 Phosphorus 3.5 mg/dL (2.5-4.9) 02/16/23 02:42 Magnesium 2.1 mg/dL (1.6-2.4) 02/16/23 02:42 Total Bilirubin 0.2 mg/dL (0.2-1.0) 02/13/23 01:43 AST 24 U/L (15-37) 02/13/23 01:43 ALT 21 U/L (16-61) 02/13/23 01:43 Alkaline Phosphatase 58 U/L (45-117) 02/13/23 01:43 <David Zuniga - Last Filed: 02/16/23 11:42> Vital Signs/Physical Exam: Temp Pulse Resp BP Pulse Ox 98.1 F 86 18 144/70 H 97 02/16/23 16:00 02/16/23 16:00 02/16/23 16:00 02/16/23 16:00 02/16/23 16:00 Laboratory Data at Discharge: WBC 4.00 thou/uL (4.3-10.9) L 02/16/23 02:42 Hgb 9.6 g/dL (13.6-17.9) L 02/16/23 02:42 Hct 28.7 % (39.6-49.0) L 02/16/23 02:42 Plt Count 163 thou/uL (152-406) 02/16/23 02:42 PT 11.7 SECONDS (9.5-12.5) 02/07/23 04:11 INR 1.07 02/07/23 04:11 APTT 29.8 SECONDS (24.3-36.9) 02/07/23 04:11 Sodium 136 mEq/L (136-145) 02/16/23 02:42 Potassium 4.3 mEq/L (3.5-5.1) 02/16/23 02:42 BUN 47 mg/dL (7-18) H 02/16/23 02:42 Creatinine 4.73 mg/dL (0.70-1.30) H 02/16/23 02:42 Glucose 126 mg/dL (74-106) H 02/16/23 02:42 Uric Acid 6.4 mg/dL (3.5-7.2) 02/13/23 01:43 Phosphorus 3.5 mg/dL (2.5-4.9) 02/16/23 02:42 Magnesium 2.1 mg/dL (1.6-2.4) 02/16/23 02:42 Total Bilirubin 0.2 mg/dL (0.2-1.0) 02/13/23 01:43 AST 24 U/L (15-37) 02/13/23 01:43 ALT 21 U/L (16-61) 02/13/23 01:43 Alkaline Phosphatase 58 U/L (45-117) 02/13/23 01:43 <Renee Munoz - Last Filed: 02/17/23 13:22> Diet: Renal Activity: Ad sergio Physician Review: Patient Assessed, Agree with Above Assessment and Plan Time spent managing pt's care (in minutes): 55 (minutes) <David Zuniga - Last Filed: 02/16/23 11:42> <Renee Munoz - Last Filed: 02/17/23 13:22> Home Medications: Hydralazine HCl 100 mg PO TID 90 Days #270 tab 01/05/24 Losartan Potassium [Cozaar*] 50 mg PO BID 90 Days #180 tab 02/16/23 Mupirocin Oint [Bactroban 2% Ointment*] 1 appl TOP DAILY 15 Days #1 tube 02/16/23 Nifedipine [Procardia Xl] 90 mg PO BID 90 Days #180 tab 02/16/23 New Medications: Mupirocin Oint [Bactroban 2% Ointment*] 1 appl TOP DAILY 15 Days #1 tube Losartan Potassium [Cozaar*] 50 mg PO BID 90 Days #180 tab Hydralazine HCl 100 mg PO TID 90 Days #270 tab Nifedipine [Procardia Xl] 90 mg PO BID 90 Days #180 tab Physician Discharge Instructions: Mr. Melvin, is a pleasant 62-year-old male patient with a past medical history significant for with no known medical problems who was [facility] on 02/06/2023 and hypertensive emergency, acute renal failure, lump on the face and elevated troponin. Patient was admitted in the hospital, ICU for close monitoring of the blood pressure after starting the patient on multiple antihypertensive medications, nephrology consulted started on hemodialysis. On 02/16/2023, patient was seen on morning rounds and deemed medically stable for discharge. Patient was discharged with instructions to schedule follow-up appointments with PCP in 3 to 5 days, automotive accessory installer in 1 week, label stamper in 2 weeks.. Patient was provided prescriptions for antihypertensive medications including losartan, nifedipine, hydralazine. The patient and family members was given the opportunity to ask questions and reported no further questions. Patient was explained the importance of continuing the antihypertensive medications and hemodialysis. Patient voiced understanding and agreed to continue the medications and continue hemodialysis. Furthermore, all questions were answered to the best of my ability. Follow-up 1. Please call and schedule a follow-up appointment with your PCP in 3-5 days 2. Please call and schedule a follow-up appointment with 7 days 3. Please call and schedule a follow-up appointment with 14 days - Please follow-up with your PCP for medication refills/adjustments Followup: Uvaldo Tinajero DO [ACTIVE - CAN ADMIT] - Jules Riddle MD [ACTIVE - CAN ADMIT] -
--- NOTE | 2023-02-16 13:15 | P.PN ---
Nephrology note (S) Spoke with CM and pt extensively, unfortunately not currently receiving financial clearance for OP HD as he is not qualifying for Medicare and neither Medicaid (at least not currently). Pt is agreeable to discharge and close monitoring in clinic and return to ER if symptomatic or fluid overloaded. He prefers to currently maintain TDC, risk for CVC related infection explained to pt and he is understanding. (O) Vitals reviewed in the EMR General: Alert, In no apparent distress, Cooperative HEENT: Atraumatic, Normocephalic, Other (Lt lower mandibular lesion resected, suture present, some surrounding induration/firm swelling remains, small lump above left eyebrow as well) Neck: Supple Respiratory: Normal air movement, Other (No rhonchi) Cardiovascular: Regular rate/rhythm, Edema Gastrointestinal: Soft and benign, Non-distended, No tenderness Musculoskeletal: No tenderness, No warmth Integumentary: No rashes Neurological: Normal speech, Normal tone, Normal affect Laboratory Data (last 24 hrs) reviewed in the EMR Conclusions/Impression: A/P) 1. Abnormal results of kidney function studies. Sub-acute Stage III ARF on underlying advanced CKD late Stage IV vs progression of disease to Stage V/ESRD. Cr level was > 3 mg/dl in Sept with eGFR < 20 ml/min then 2. 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 No obvious signs of renal infarction, thombosis, TMA, other based on clinical and laboratory factors. UA does show active sediment with dipstick proteinuria (he has chronic sub nephrotic proteinuria) and microscopic hematuria both of which could be seen with renal sclerosis and hypertensive arteriosclerosis. 3. Renal u/s showed kidneys at LLN in length and echogenic c/w medical renal disease 4. Did order spot urine studies to further quantify proteinuria which is sub nephrotic 5. With worsening of renal function and no major renal recovery seen on repeat labs, I did discuss indications for initiation of HD in the low GFR state as with pt's history of non compliance and poor follow up, not starting HD now would certainly be riskier and contribute to continued uncontrolled HTN and potential fluid overload. Pt consented to placement of a TDC and initiation of HD on this admission. However did not receive financial clearance for OP HD. He is non oliguric. Metab profile stable. Will see if his residual renal function can carry him over while as OP he explores other assistance options. If renal function recovers any to levels seen several months ago, his TDC can be removed as OP otherwise will allow for emergent HD if admitted through ER. 6. malignant HTN -cont current meds but if ARB will be continued without dialys is, would place on a intermittent cation exchanger to control K levels Fito Alvarenga MD, ZOILA
--- NOTE | 2023-02-16 13:28 | CON ---
Date of Consultation: 02/07/2023 Brief History Of Present Illness: The patient is a 62-year-old man with no past medical history, adm itted to the emergency department with a lump over his left face. He is a poor historian. Did not h ave an outpatient established primary care physician. He said that the lump appeared on his face yessi roximately 4 months ago, gradually increasing in size. No history of trauma. He had a CT scan of th e facial bones, which was done, which showed a superficial mass. He was found to have elevated blood pressure of greater than 200. His creatinine was 8.1. He was given IV hydralazine, treated and ult imately admitted to the hospitalist service with consult to Nephrology. Ultimately, he was noted to have significant worsening renal function consistent with a CKD, requiring ongoing hemodialysis, and as such, I was consulted to see the patient regarding placement of a tunneled hemodialysis catheter. Past Medical History: As he has no significant care from a primary care physician, there is no histo ry of medical issues. Past Surgical History: Denies. Home Medications: None. Allergies: NO KNOWN DRUG ALLERGIES. Social History: He is a 30+ pack-year history of smoking tobacco. He lives at home. Review of Systems: Ten-point review of systems other than HPI, he denies. Physical Examination: At the time of my examination, General: He is awake, alert, oriented. Psychiatric: He is appropriate, conversive. HEENT: He is normocephalic. He has a left lower mandibular lesion with suture present with some monica rounding induration and some swelling above his left eyebrow. Neck: Supple without JVD. Chest: Normal expansion to excursion. Cardiovascular: Regular rate and rhythm. Pulmonary: Clear to auscultation bilaterally. Abdomen: Soft, nontender. Extremities: No clubbing, cyanosis, or edema. Skin: Warm and dry. Laboratory Data: Revealed a white blood cell count of 4.4, hemoglobin 9.2, hematocrit 27.6, platelet count was 128. Chemistry showed a sodium 143, potassium 4.3, chloride 114, carbon dioxide 24, BUN 8 3, creatinine was 7.7, glucose is 143. His troponin was 263 down to 223.9, albumin was 2.8. He had a facial bone CT on 02/05, which was officially read as pedunculated 3 x 2.8 x 3.7 cm mass at left pe rimandibular subcutaneous tissues. He also had a well-circumscribed 1.4 x 1.2 x 1.1 homogeneous fatt y mass with tiny focus of peripheral calcification demonstrating left supraorbital subcutaneous tissu e . Assessment And Plan: 1.This is a 62-year-old male who comes in with multiple issues as described above with worsening nesha al function. I have been consulted to discuss placement of tunneled hemodialysis catheter for ongoin g hemodialysis. 2.I have explained the risks, benefits, and alternatives of placement of a tunneled hemodialysis cat heter including, but not limited to, bleeding, infection, damage to surrounding tissues, need for fur ther operation and procedures, pneumothorax, blood clots, heart attack, strokes, other anesthesia rel ated complications, clot related to catheter placement, catheter fragmentation, catheter dysfunction, and need for further attention to the catheter. The patient displayed good understanding of the abo ve-stated plan. Agrees to proceed as indicated. Thank you for this interesting consult. MARK/LINDEN Voice ID: [id number] Report ID: [id number]
[2023-02-16] MEDS ORDERED: FUROSEMIDE 40 MG TABLET PO SCH (17:00)
[2023-02-16 17:24] VITALS: BP 144/70; TEMP 98.1
[2023-02-17] MEDS ORDERED: SOD POLYSTYREN SUL 15 GM/60 ML UCUP PO SCH (09:00)
== END 2023-02-16 19:37 | disposition home or self-care (01) | DRG 673 ==
LOC: ER 21:28 → ERHOLD 02-06 01:43 → 3RD-ICU 02-06 05:26 → 2ND 02-11 14:24
PROVIDERS: ADMIT Hospitalist; ATTEND Family Medicine
PROC: 02HV33Z Insertion of Infusion Device into Superior Vena Cava, Percutaneous Approach (ICD-10-PCS; 2023-02-08)
PROC: 0JH63XZ Insertion of Tunneled Vascular Access Device into Chest Subcutaneous Tissue and Fascia, Percutaneous Approach (ICD-10-PCS; principal; 2023-02-08 18:45)
PROC: 5A1D70Z Performance of Urinary Filtration, Intermittent, Less than 6 Hours Per Day (ICD-10-PCS; 2023-02-09)
PROC: 5A1D70Z Performance of Urinary Filtration, Intermittent, Less than 6 Hours Per Day (ICD-10-PCS; 2023-02-10)
PROC: 5A1D70Z Performance of Urinary Filtration, Intermittent, Less than 6 Hours Per Day (ICD-10-PCS; 2023-02-13)
PROC: 5A1D70Z Performance of Urinary Filtration, Intermittent, Less than 6 Hours Per Day (ICD-10-PCS; 2023-02-15)
DX: N17.9 Acute kidney failure, unspecified (principal); I21.A1 Myocardial infarction type 2; I13.0 Hypertensive heart and chronic kidney disease with heart failure and stage 1 through stage 4 chronic kidney disease, or unspecified chronic kidney disease; I16.1 Hypertensive emergency; I50.32 Chronic diastolic (congestive) heart failure; L98.0 Pyogenic granuloma; L72.8 Other follicular cysts of the skin and subcutaneous tissue; N18.5 Chronic kidney disease, stage 5; R31.29 Other microscopic hematuria; R00.1 Bradycardia, unspecified; D63.1 Anemia in chronic kidney disease; E66.9 Obesity, unspecified; F14.10 Cocaine abuse, uncomplicated; F17.210 Nicotine dependence, cigarettes, uncomplicated; Z68.30 Body mass index [BMI] 30.0-30.9, adult
CPT/HCPCS: 36415; 70486; 70490; 71045; 76000; 76377; 76770; 78452; 80048; 80069; 80074; 80076; 81001; 82043; 82550; 82570; 83735; 83880; 83970; 84100; 84156; 84439; 84443; 84484; 84550; 85014; 85018; 85025; 85610; 85730; 86140; 86704; 86706; 88305; 90935; 93005; 93017; 93306; 96361; 96365; 96366; 96375; 99285; A4216; A9500; J0360; J0690; J1170; J1644; J1940; J2001; J2185; J2250; J2405; J2704; J2785; J3010; J3475; J7030; J7040; J7050

== ENCOUNTER 2023-02-19 12:09 | Emergency (ER) | payer SELFPAY ==
--- NOTE | 2023-02-19 12:58 | P.PN ---
Date of Service: 02/16/23 ENT Progress Note S: Patient seen and examined. Ulcerative lesions of left inferomedial cheek and right medial eyebrow have improved significantly since starting mupirocin ointment. He also states that pain of left lower face has improved. He is reluctant to treat these with silver nitrate or excision and since the lesions have shrunk, we discussed that watchful waiting is appropriate. O: Unchanged left supraorbital cystic lesion, left inferomedial cheek-- decreased size of lesion and ulceration has resolved, right medial brow-- hyperkeratotic lesion has improved in size and ulceration has resolved. Assessment: 1. Pyogenic granuloma-- left inferomedial cheek-- observation is appropriate. Refrain from picking at the area and may use mupirocin ointment BID for one week. f/up prn 2. Right medial brow neoplasm-- suspect pyogenic granuloma, based on favorable response to mupirocin. Observation appropriate. May use mupirocin ointment BID for one week. f/up prn 3. Left supraorbital cyst--- can address outpatient surgically if enlarges or if there is recurrent infection. f/up prn
[2023-02-19 14:37] LABS: Absolute Lymphocytes (CBC) 1.3 K/uL (0.7-4.9); Hematocrit 28.8 % (39.6-49.0); Lymphocytes % 26.2 % (15.3-44.8); MCV 85.1 fL (80-100); MPV 8.6 fL (7.6-11.3); Platelets 269 thou/uL (152-406); RBC Red Blood Cell Count 3.39 M/uL (4.33-5.43)
[2023-02-19 15:35] LABS: Albumin 2.9 g/dL (3.4-5.0); Bilirubin Total 0.2 mg/dL (0.2-1.0); Potassium 5.4 mEq/L (3.5-5.1); Protein, Total 6.9 g/dL (6.4-8.2)
--- NOTE | 2023-02-19 16:13 | RAD REPORT ---
EXAM DES[facility] 3:17 pm CLINICAL HISTORY: SOB COMPARISON: Chest Single View dated 02/08/2023; Chest Single View dated 02/06/2023 TECHNIQUE: Portable AP view of the chest. FINDINGS: The lungs are clear. Right subclavian dialysis catheter unchanged in position. Elevation o f the left hemidiaphragm again seen. No pneumothorax or effusion. The cardiomediastinal contours are unremarkable. IMPRESSION: No acute cardiopulmonary process.
--- NOTE | 2023-02-19 16:14 | ER ---
Nurse's Notes [facility] Name: Zander Melvin Age: 62 yrs Sex: Male : 1960 Arrival Date: 02/19/2023 Time: 12:09 Bed DIS6 Private MD: Diagnosis: Hypertensive heart and chronic kidney disease without heart failure, with stage 5 chronic kidney disease, or end stage renal disease;Encounter for adequacy testing for hemodialysis Presentation: 02/19 12:57 Chief complaint: Patient states: "THE JESSE HERE TOLD ME TO COME IN EVERY OTHER DAY TO iw GET DIALYSIS IN THE ER UNTIL THEY CAN GET ME IN A CLINIC". Coronavirus screen: At this time, the client does not indicate any symptoms associated with coronavirus-19. Ebola Screen: No symptoms or risks identified at this time. Initial Sepsis Screen: Does the patient meet any 2 criteria? No. Patient's initial sepsis screen is negative. Does the patient have a suspected source of infection? No. Patient's initial sepsis screen is negative. Risk Assessment: Do you want to hurt yourself or someone else? Patient reports no desire to harm self or others. Onset of symptoms is unknown. 12:57 Method Of Arrival: Ambulatory iw 12:57 Acuity: JAMES 3 iw Triage Assessment: 13:01 General: Appears in no apparent distress. comfortable, Behavior is calm, cooperative, iw appropriate for age. Pain: Denies pain. Historical: - Allergies: 13:01 No Known Allergies; iw - PMHx: 13:01 Hypertensive disorder; iw - Immunization history:: Adult Immunizations up to date. - Social history:: Smoking status: Patient denies any tobacco usage or history of. - Hospitalizations: : The patient was recently seen at [facility], and discharged 5 day(s) ago. Screenin:01 [facility] ED Fall Risk Assessment (Adult) History of falling in the last 3 months, iw including since admission No falls in past 3 months (0 pts). Abuse screen: Denies threats or abuse. Denies injuries from another. Nutritional screening: No deficits noted. Tuberculosis screening: No symptoms or risk factors identified. Assessment: 17:30 General: Appears in no apparent distress. comfortable, Behavior is calm, cooperative, kb3 Pt has no complaints/ Reports he was told to come to the ER MWF to get dialysis.. Vital Signs: 12:57 BP 167 / 74; Pulse 79; Resp 16; Temp 98; Pulse Ox 99% ; iw ED Course: 12:10 Patient arrived in ED. rg4 13:01 Triage completed. iw 13:01 Arm band placed on. iw 13:26 Conchita Spears MD is Attending Physician. gb1 14:30 Missed attempt(s): 20 gauge in right antecubital area. bc6 14:46 Inserted saline lock: 20 gauge in left wrist, using aseptic technique. bc6 15:00 CMP Sent. bc6 15:00 Lipase Sent. bc6 15:18 Chest Single View XRAY In Process Unspecified. EDMS 16:12 Uvaldo Tinajero DO is Referral Physician. gb1 17:30 Patient has correct armband on for positive identification. Provided Education on: kb3 Discharge, labs, follow up. 17:30 No provider procedures requiring assistance completed. IV discontinued, intact, kb3 bleeding controlled, No redness/swelling at site. Administered Medications: 17:45 Drug: Lokelma Powder 10 grams PO once Route: PO; kb3 Medication: 17:30 VIS not applicable for this client. kb3 Outcome: 16:13 Discharge ordered by . gb1 17:45 Discharged to home ambulatory, kb3 17:45 Condition: stable 17:45 Discharge instructions given to patient, Instructed on discharge instructions, follow up and referral plans. Demonstrated understanding of instructions, follow-up care, 18:05 Patient left the ED. kb3 Signatures: Dispatcher [employer] EDMS Sharda Goff RN RN iw Hailey Lackey rg4 Kathy Gilmore, RN RN kb3 Vandana Orozco bc6 Conchita Spears MD MD gb1
--- NOTE | 2023-02-19 16:14 | EDPHYS ---
Physician Documentation [facility] Name: Zander Melvin Age: 62 yrs Sex: Male : 1960 Arrival Date: 02/19/2023 Time: 12:09 Bed DIS6 Private MD: ED Physician Conchita Spears HPI: 02/19 16:09 This 62 yrs old Black Male presents to ER via Ambulatory with complaints of Needs gb1 Dialysis. 16:09 The patient has been recently seen by a physician: The patient has been recently been gb1 admitted at [facility], was discharged last week. 62-year-old -L[place]anese male presents with the chief complaint of "I need dialysis". He was recently admitted to the hospital and discharged home on February 16. Patient was told to come back to the emergency department for his hemodialysis treatment as he is not a Medicare or Medicaid candidate at this time. He has no medical insurance and this is a new condition for him. He denies shortness of breath or chest pain. He denies swelling in his legs. He is taking the medications for blood pressure that were prescribed to him as recommended.. Historical: - Allergies: 13:01 No Known Allergies; iw - PMHx: 13:01 Hypertensive disorder; iw - Immunization history:: Adult Immunizations up to date. - Social history:: Smoking status: Patient denies any tobacco usage or history of. - Hospitalizations: : The patient was recently seen at [facility], and discharged 5 day(s) ago. ROS: 16:09 All other systems are negative, gb1 Exam: 16:09 Constitutional: This is a well developed, well nourished patient who is awake, alert, gb1 and in no acute distress. Head/Face: Normocephalic, atraumatic. Eyes: Pupils equal round and reactive to light, extra-ocular motions intact. Lids and lashes normal. Conjunctiva and sclera are non-icteric and not injected. Cornea within normal limits. Periorbital areas with no swelling, redness, or edema. ENT: Nares patent. No nasal discharge, no septal abnormalities noted. Tympanic membranes are normal and external auditory canals are clear. Oropharynx with no redness, swelling, or masses, exudates, or evidence of obstruction, uvula midline. Mucous membranes moist. Neck: Trachea midline, no thyromegaly or masses palpated, and no cervical lymphadenopathy. Supple, full range of motion without nuchal rigidity, or vertebral point tenderness. No Meningismus. Chest/axilla: Normal chest wall appearance and motion. Nontender with no deformity. No lesions are appreciated. Cardiovascular: Regular rate and rhythm with a normal S1 and S2. No gallops, murmurs, or rubs. Normal PMI, no JVD. No pulse deficits. Respiratory: Lungs have equal breath sounds bilaterally, clear to auscultation and percussion. No rales, rhonchi or wheezes noted. No increased work of breathing, no retractions or nasal flaring. Abdomen/GI: Soft, non-tender, with normal bowel sounds. No distension or tympany. No guarding or rebound. No evidence of tenderness throughout. Back: No spinal tenderness. No costovertebral tenderness. Full range of motion. Skin: Warm, dry with normal turgor. Normal color with no rashes, no lesions, and no evidence of cellulitis. MS/ Extremity: Pulses equal, no cyanosis. Neurovascular intact. Full, normal range of motion. Neuro: Awake and alert, GCS 15, oriented to person, place, time, and situation. Cranial nerves II-XII grossly intact. Motor strength 5/5 in all extremities. Sensory grossly intact. Cerebellar exam normal. Normal gait. Psych: Awake, alert, with orientation to person, place and time. Behavior, mood, and affect are within normal limits. Vital Signs: 12:57 BP 167 / 74; Pulse 79; Resp 16; Temp 98; Pulse Ox 99% ; iw MDM: 13:26 Patient medically screened. gb1 16:09 Differential diagnosis: End-stage renal disease needing dialysis. I am concerned the gb1 patient may be in acute congestive heart failure with pulmonary edema versus hyperkalemia versus malignant hypertension versus doubt TIA or CVA. Management of patient was discussed with the following: Nut Dehydrator Operator: Dr.. Tinajero was contacted by phone and he is okay with discharging the patient on [facility] and having him return to the emergency department tomorrow for plans for dialysis if necessary or emergent. The patient at this time has no reason for emergent hemodialysis. His potassium is 5.4. Patient is not short of breath or working to breathe with no accessory muscle usage. I doubt at this time but he is in acute decompensated heart failure.. 16:15 Data reviewed: nurses notes, radiologic studies, plain films. gb1 02/19 13:27 Order name: CBC with Diff; Complete Time: 15:34 gb02/19 13:27 Order name: CMP; Complete Time: 15:37 gb1 02/19 13:27 Order name: Lipase; Complete Time: 15:37 gb02/19 14:10 Order name: Chest Single View XRAY; Complete Time: 16:15 gb02/19 13:27 Order name: IV Saline Lock; Complete Time: 14:46 gb02/19 13:27 Order name: Labs collected and sent; Complete Time: 15:00 gb1 02/19 15:53 Interpretation: Abnormal. gb1 02/19 14:42 Order name: Labs - recollect needed: recollect c7; Complete Time: 14:58 bd Administered Medications: 17:45 Drug: Lokelma Powder 10 grams PO once Route: PO; kb3 Disposition: 16:16 Chart complete. gb1 Disposition Summary: 02/19/23 16:13 Discharge Ordered Notes: Location: Home gb1 Problem: new gb1 Symptoms: are unchanged gb1 Condition: Stable gb1 Diagnosis - Hypertensive heart and chronic kidney disease without heart failure, with stage 5 gb1 chronic kidney disease, or end stage renal disease - Encounter for adequacy testing for hemodialysis gb1 Followup: gb1 - With: Uvaldo Tinajero DO - When: Tomorrow - Reason: Re-evaluation by your physician Discharge Instructions: - Discharge Summary Sheet gb1 - Chronic Kidney Disease, Adult, [id number] gb1 Forms: - Medication Reconciliation Form gb1 - Thank You Letter gb1 - Antibiotic Education gb1 - Prescription Opioid Use gb1 - Patient Portal Instructions gb1 - Leadership Thank You Letter gb1 Signatures: Dispatcher [employer] Any Holder Irene, Kathy Reese RN, RN RN kb3 Conchita Spears MD MD gb1
[2023-02-19] MEDS ORDERED: SODIUM ZIRCONIUM CYCLOSILICATE 10 GM/PKT PO ONE (18:00)
[2023-02-19 21:21] VITALS: BP 167/74; TEMP 98; O2SAT 99
== END 2023-02-19 18:05 | disposition home or self-care (01) ==
LOC: ER 12:09
DX: I12.0 Hypertensive chronic kidney disease with stage 5 chronic kidney disease or end stage renal disease (principal); Z49.31 Encounter for adequacy testing for hemodialysis
CPT/HCPCS: 36415; 71045; 80053; 83690; 85025; 99284

== ENCOUNTER → 2023-02-20 | Emergency (ER) | payer SELFPAY ==
--- NOTE | 2023-02-20 16:33 | RAD REPORT ---
EXAM DESCRIPTION: RAD - Chest Single View - 02/20/2023 4:21 pm CLINICAL HISTORY: SWELLING COMPARISON: Chest Single View dated 02/19/2023; Chest Single View dated 02/08/2023; Chest Single View dated 02/06/2023 FINDINGS: Lines: Right subclavian approach dialysis catheter with tip overlying the SVC . Lungs: No evidence of edema or pneumonia. Pleural: No significant pleural effusions or pneumothorax. Cardiac: Cardiomegaly. Mediastinum: Within normal limits. Bones: No acute fractures. Other: None IMPRESSION: No acute cardiopulmonary disease.
[2023-02-20 16:43] LABS: Absolute Lymphocytes (CBC) 1.4 K/uL (0.7-4.9); Lymphocytes % 25.3 % (15.3-44.8); MCV 84.3 fL (80-100); MPV 7.7 fL (7.6-11.3); Platelets 220 thou/uL (152-406); RBC Red Blood Cell Count 3.32 M/uL (4.33-5.43)
[2023-02-20 16:57] LABS: Albumin 2.9 g/dL (3.4-5.0); Bilirubin Total 0.2 mg/dL (0.2-1.0); Potassium 5.1 mEq/L (3.5-5.1); Protein, Total 6.8 g/dL (6.4-8.2)
--- NOTE | 2023-02-20 17:15 | EDPHYS ---
Physician Documentation [facility] Name: Zander Melvin Age: 62 yrs Sex: Male : 1960 Arrival Date: 02/20/2023 Time: 15:26 Bed 8 Private MD: ED Physician Christ Lu HPI: 02/20 15:47 This 62 yrs old Black Male presents to ER via Ambulatory with complaints of Doesn't kb Feel Right. 15:47 Patient is a 62-year-old male who presents to have dialysis done. States he was last kb dialyzed on Sunday and believes he needs his blood cleaned out. Patient was seen yesterday in this ER and was told to come back , after physician discussed case with Dr. Tinajero. Patient states he thought he was supposed to come back today. Denies shortness of breath, chest pain. States he feels pretty normal.. Historical: - Allergies: 15:39 No Known Allergies; ll1 - PMHx: 15:39 Hypertensive disorder; ll1 - Immunization history:: Adult Immunizations up to date. - Social history:: Smoking status: Patient denies any tobacco usage or history of. ROS: 15:47 Constitutional: Negative for fever, chills, and weight loss, kb 15:47 All other systems are negative, Exam: 15:47 Constitutional: This is a well developed, well nourished patient who is awake, alert, kb and in no acute distress. Head/Face: Normocephalic, atraumatic. ENT: Moist Mucous membranes Cardiovascular: Regular rate Respiratory: Respirations even and unlabored. No increased work of breathing. Talking in full sentences Abdomen/GI: Soft, non-tender. No distention Skin: Warm, dry with normal turgor. Normal color. MS/ Extremity: Pulses equal, no cyanosis. Neurovascular intact. Full, normal range of motion. Neuro: Awake and alert, GCS 15, oriented to person, place, time, and situation. Moves all extremities. Normal gait. 15:47 Cardiovascular: Edema: pedal edema, Vital Signs: 15:39 BP 171 / 87; Pulse 72; Resp 18; Temp 97.9; Pulse Ox 95% ; Weight 102.06 kg; Height 5 ll1 ft. 11 in. ; Pain 0/10; 17:41 BP 134 / 86; Pulse 70; Resp 18; Pulse Ox 100% on R/A; mb9 15:39 Body Mass Index 31.38 (102.06 kg, 180.34 cm) ll1 15:39 Pain Scale: Adult ll1 MDM: 15:39 Patient medically screened. kb 17:14 Data reviewed: vital signs, nurses notes. kb 17:41 Differential diagnosis: pulmonary edema, abnormal electrolytes, abnormal ekg. kb Counseling: I had a detailed discussion with the patient and/or guardian regarding the historical points, exam findings, and any diagnostic results supporting the discharge/admit diagnosis, lab results, radiology results, the need for outpatient follow up, a family practitioner, to return to the emergency department if symptoms worsen or persist or if there are any questions or concerns that arise at home. ED course: Pt educated on diagnostic results and that there is not a need for emergent dialysis at this time. Educated to follow up with nephrology. Verbal understanding received. . 02/20 15:46 Order name: CBC with Diff; Complete Time: 16:45 kb 02/20 15:46 Order name: CMP; Complete Time: 16:58 kb 02/20 15:46 Order name: Chest Single View XRAY; Complete Time: 16:37 kb 02/20 15:46 Order name: EKG; Complete Time: 15:46 kb 02/20 15:46 Order name: EKG - Nurse/Tech; Complete Time: 16:49 kb 02/20 15:46 Order name: IV Start; Complete Time: 16:32 kb Administered Medications: No medications were administered Disposition: 19:19 I was immediately available on-site in the Emergency Department for consultation in the wa3 care of the patient. Disposition Summary: 02/20/23 17:15 Discharge Ordered Notes: Location: Home kb Condition: Stable kb Diagnosis - End stage renal disease kb Followup: kb - With: Emergency Department - When: As needed - Reason: Worsening of condition Followup: kb - With: Private Physician - When: 2 - 3 days - Reason: Recheck today's complaints, Continuance of care, Re-evaluation by your physician Discharge Instructions: - Discharge Summary Sheet kb - Chronic Kidney Disease, Adult, [id number] kb Forms: - Medication Reconciliation Form kb - Thank You Letter kb - Antibiotic Education kb - Prescription Opioid Use kb - Patient Portal Instructions kb - Leadership Thank You Letter kb Signatures: Dispatcher [employer] Diana Davidson, HIDE MEASURING MACHINE OPERATOR-C HIDE MEASURING MACHINE OPERATOR-Susy Madsen, RN RN ll1 Christ Lu, DO RADER ms3
--- NOTE | 2023-02-20 17:15 | ER ---
Nurse's Notes [facility] Name: Zander Melvin Age: 62 yrs Sex: Male : 1960 Arrival Date: 02/20/2023 Time: 15:26 Bed 8 Private MD: Diagnosis: End stage renal disease Presentation: 02/20 15:39 Chief complaint: Patient states: Here to get his "blood cleaned out". Last dialysis ll1 Sunday. Swelling R arm/R leg. Coronavirus screen: Client denies travel out of the [place] in the last 14 days. At this time, the client does not indicate any symptoms associated with coronavirus-19. Ebola Screen: Patient denies travel to an Ebola-affected area in the 21 days before illness onset. Initial Sepsis Screen: Does the patient meet any 2 criteria? No. Patient's initial sepsis screen is negative. Does the patient have a suspected source of infection? No. Patient's initial sepsis screen is negative. Risk Assessment: Do you want to hurt yourself or someone else? Patient reports no desire to harm self or others. Onset of symptoms was February 20, 2023. 15:39 Method Of Arrival: Ambulatory ll1 15:39 Acuity: JAMES 3 ll1 Triage Assessment: 15:40 General: Appears uncomfortable, Behavior is calm, cooperative, appropriate for age. iw Pain: Denies pain. Neuro: No deficits noted. Musculoskeletal: Reports swelling RUE and RLE. Checking to see if he needs dialysis. Historical: - Allergies: 15:39 No Known Allergies; ll1 - PMHx: 15:39 Hypertensive disorder; ll1 - Immunization history:: Adult Immunizations up to date. - Social history:: Smoking status: Patient denies any tobacco usage or history of. Screenin:34 [facility] ED Fall Risk Assessment (Adult) History of falling in the last 3 months, mb9 including since admission No falls in past 3 months (0 pts) Confusion or Disorientation No (0 pts) Intoxicated or Sedated No (0 pts) Impaired Gait No (0 pts) Mobility Assist Device Used No (0 pt) Altered Elimination No (0 pt) Score/Fall Risk Level 0 - 2 = Low Risk Oriented to surroundings, Maintained a safe environment, Educated pt \\T\\ family on fall prevention, incl call for assistance when getting out of bed. Abuse screen: Denies threats or abuse. Nutritional screening: No deficits noted. Tuberculosis screening: No symptoms or risk factors identified. Assessment: 16:13 Reassessment: No changes from previously documented assessment. Patient and/or family iw updated on plan of care and expected duration. Pain level reassessed. 16:32 Reassessment: Pt states, "I feel fine. I was told to come here to get dialysis since I mb9 don't have health insurance". General: Appears in no apparent distress. Behavior is calm, cooperative, appropriate for age. Pain: Denies pain. Neuro: Read Agitation-Sedation Scale (RASS): 0 - Alert and Calm Level of Consciousness is awake, alert, obeys commands, Oriented to person, place, time, situation, Appropriate for age. Cardiovascular: Heart tones S1 S2 present Patient's skin is warm and dry. Respiratory: Airway is patent Respiratory effort is even, unlabored, Respiratory pattern is regular, symmetrical. GI: No signs and/or symptoms were reported involving the gastrointestinal system. : No signs and/or symptoms were reported regarding the genitourinary system. EENT: No signs and/or symptoms were reported regarding the EENT system. Derm: Skin is pink, warm \\T\\ dry. Musculoskeletal: Range of motion: intact in all extremities. 17:41 Reassessment: No changes from previously documented assessment. Patient and/or family mb9 updated on plan of care and expected duration. Pain level reassessed. Patient is alert, oriented x 3, equal unlabored respirations, skin warm/dry/pink. Vital Signs: 15:39 BP 171 / 87; Pulse 72; Resp 18; Temp 97.9; Pulse Ox 95% ; Weight 102.06 kg; Height 5 ll1 ft. 11 in. ; Pain 0/10; 17:41 BP 134 / 86; Pulse 70; Resp 18; Pulse Ox 100% on R/A; mb9 15:39 Body Mass Index 31.38 (102.06 kg, 180.34 cm) ll1 15:39 Pain Scale: Adult ll1 ED Course: 15:28 Patient arrived in ED. mg5 15:37 Diana Loja FNP-C [facility]. kb 15:37 Christ Lu DO is Attending Physician. kb 15:41 Triage completed. ll1 15:41 Arm band placed on. ll1 16:13 Patient placed in an exam room, on a stretcher. iw 16:23 Chest Single View XRAY In Process Unspecified. EDMS 16:32 Cheryl Miller, RN is Primary Nurse. mb9 16:32 CMP Sent. mb9 16:32 CBC with Diff Sent. mb9 16:32 Inserted saline lock: 22 gauge in right hand, using aseptic technique. mb9 16:34 Placed in gown. Bed in low position. Call light in reach. Side rails up X 1. Client mb9 placed on continuous cardiac and pulse oximetry monitoring. NIBP monitoring applied. technical training specialist on. 17:41 No provider procedures requiring assistance completed. IV discontinued, intact, mb9 bleeding controlled, No redness/swelling at site. Pressure dressing applied. Administered Medications: No medications were administered Medication: 16:34 VIS not applicable for this client. mb9 Outcome: 17:15 Discharge ordered by . kb 17:42 Discharged to home via wheelchair, with family, mb9 17:42 Condition: stable 17:42 Discharge instructions given to patient, Instructed on discharge instructions, follow up and referral plans. Demonstrated understanding of instructions, follow-up care, 17:42 Patient left the ED. mb9 Signatures: Dispatcher [employer] EDNJ Diana Loja, OUT OF SCHOOL HOURS CARE WORKER-C OUT OF SCHOOL HOURS CARE WORKER-CkSharda Blair, VALERIA SHAW iw Susy Norton RN RN ll1 Cheryl Miller, RN RN mb9 Mylene Cool mg5 Corrections: (The following items were deleted from the chart) 15:45 15:39 Chief complaint: Patient states: Here to get his "blood cleaned out". Last ll1 dialysis Sunday. ll1
[2023-02-20 20:41] VITALS: BP 134/86; TEMP 97.9; O2SAT 100
--- NOTE | 2023-02-21 17:35 | EKG ---
Test Date: 2023-02-20 Test Time: 16:53:55 Tugger Operator: MB MEASUREMENT RESULTS: Intervals: Rate: 55 AL: 188 QRSD: 108 QT: 452 QTc: 432 [place]: P: 75 AL: 188 QRS: -25 T: 132 INTERPRETIVE STATEMENTS: Sinus bradycardia Incomplete left bundle branch block ST & T wave abnormality, consider lateral ischemia Abnormal ECG Compared to ECG 02/06/2023 00:05:11 Left bundle-branch block now present ST (T wave) deviation now present Possible ischemia now present Left anterior fascicular block no longer present Left ventricular hypertrophy no longer present Early repolarization no longer present Electronically Signed On 02-21-23 17:33:52 MINING MACHINERY ASSEMBLER by Jules Riddle
== END ==
LOC: ER 15:26
DX: I12.0 Hypertensive chronic kidney disease with stage 5 chronic kidney disease or end stage renal disease (principal); N18.6 End stage renal disease; Z99.2 Dependence on renal dialysis
CPT/HCPCS: 36415; 71045; 80053; 85025; 93005; 99284

== ENCOUNTER → 2023-03-05 | Emergency (ER) | payer SELFPAY ==
[2023-03-05 18:50] LABS: Absolute Lymphocytes (CBC) 1.2 K/uL (0.7-4.9); Hematocrit 28.6 % (39.6-49.0); Lymphocytes % 35.4 % (15.3-44.8); MCV 85.4 fL (80-100); MPV 7.8 fL (7.6-11.3); Platelets 155 thou/uL (152-406); RBC Red Blood Cell Count 3.35 M/uL (4.33-5.43)
--- NOTE | 2023-03-05 19:04 | RAD REPORT ---
EXAM DESCRIPTION: RADChest Single View03/05/2023 6:11 pm CLINICAL HISTORY: DYSPNEA COMPARISON: Chest Single View dated 03/01/2023; Chest Single View dated 02/20/2023; Chest Single View d ated 02/19/2023; Chest Single View dated 02/08/2023 TECHNIQUE: Portable AP view of the chest. FINDINGS: Right-sided hemodialysis catheter unchanged position. The lungs are clear. No pneumothora x or effusion. The cardiomediastinal contours are unremarkable. IMPRESSION: No acute cardiopulmonary process.
[2023-03-05 19:10] LABS: ALT/SGPT 39 U/L (16-61); AST/SGOT 24 U/L (15-37); Albumin 2.8 g/dL (3.4-5.0); Alkaline Phosphatase 63 U/L (45-117); BUN Blood Urea Nitrogen 56 mg/dL (7-18); Bicarbonate 26 mEq/L (21-32); Bilirubin Total 0.2 mg/dL (0.2-1.0); Glomerular Filtration Rate 10 ml/min (=/>90); Glucose Level 113 mg/dL (74-106); Magnesium 2.1 mg/dL (1.6-2.4); Phosphorus 3.9 mg/dL (2.5-4.9); Potassium 4.4 mEq/L (3.5-5.1); Protein, Total 6.5 g/dL (6.4-8.2); Sodium Level 140 mEq/L (136-145)
[2023-03-05 19:11] LABS: Bilirubin Direct < 0.1 mg/dL (0-0.2); Bilirubin Indirect, Calculated ND mg/dL (0.2-0.8)
[2023-03-05 19:12] LABS: Troponin High Sensitivity 61.7 pg/mL (<58.9)
--- NOTE | 2023-03-05 23:29 | EDPHYS ---
Physician Documentation [facility] Name: Zander Melvin Age: 62 yrs Sex: Male : 1960 Arrival Date: 03/05/2023 Time: 17:18 Bed 16 Private MD: ED Physician Vin Washburn HPI: 03/05 19:25 This 62 yrs old Black Male presents to ER via Ambulatory with complaints of cath rt problem. 19:25 Patient presents to the ED with shortness of breath. He is a dialysis patient, rt relatively new to dialysis. Did not go to dialysis today. Denies chest pain, other acute complaints. Symptoms are moderate in severity, no other aggravating or alleviating factors.. Historical: - Allergies: 17:37 No Known Allergies; ld1 - PMHx: 17:37 Hypertensive disorder; ld1 - PSHx: 17:37 I\T\D facial abscess; ld1 - Immunization history:: Adult Immunizations up to date. - Social history:: Smoking status: Patient denies any tobacco usage or history of. Patient/guardian denies using alcohol. - Family history:: not pertinent. ROS: 19:25 Constitutional: Negative for fever, chills, and weight loss, Cardiovascular: Negative rt for chest pain, palpitations, and edema, Abdomen/GI: Negative for abdominal pain, nausea, vomiting, diarrhea, and constipation, MS/Extremity: Negative for injury and deformity, Skin: Negative for injury, rash, and discoloration, Neuro: Negative for headache, weakness, numbness, tingling, and seizure, Psych: Negative for depression, anxiety, suicide ideation, homicidal ideation, and hallucinations, 19:25 Respiratory: Positive for shortness of breath, Negative for cough, Exam: 19:25 Constitutional: This is a well developed, well nourished patient who is awake, alert, rt and in no acute distress. Head/Face: Normocephalic, atraumatic. Chest/axilla: Normal chest wall appearance and motion. Nontender with no deformity. No lesions are appreciated. Cardiovascular: Regular rate and rhythm with a normal S1 and S2. No gallops, murmurs, or rubs. Normal PMI, no JVD. No pulse deficits. Respiratory: Lungs have equal breath sounds bilaterally, clear to auscultation and percussion. No rales, rhonchi or wheezes noted. No increased work of breathing, no retractions or nasal flaring. Abdomen/GI: Soft, non-tender, with normal bowel sounds. No distension or tympany. No guarding or rebound. No evidence of tenderness throughout. Skin: Warm, dry with normal turgor. Normal color with no rashes, no lesions, and no evidence of cellulitis. MS/ Extremity: Pulses equal, no cyanosis. Neurovascular intact. Full, normal range of motion. Neuro: Awake and alert, GCS 15, oriented to person, place, time, and situation. Cranial nerves II-XII grossly intact. Motor strength 5/5 in all extremities. Sensory grossly intact. Cerebellar exam normal. Normal gait. Psych: Awake, alert, with orientation to person, place and time. Behavior, mood, and affect are within normal limits. 19:25 ECG was reviewed by the Attending Physician. Vital Signs: 17:36 BP 164 / 84; Pulse 66; Resp 18; Temp 98.1(TE); Pulse Ox 100% on R/A; Weight 104.33 kg; ld1 Height 5 ft. 11 in. ; Pain 0/10; 19:13 BP 166 / 89; Pulse 52; Pulse Ox 100% on R/A; ap3 20:00 BP 171 / 100; Pulse 45; Resp 18; Pulse Ox 100% ; cp4 21:00 BP 166 / 99; Pulse 44; Resp 18; Pulse Ox 100% ; pf1 22:00 BP 166 / 102; Pulse 52; Resp 18; Pulse Ox 100% ; pf1 23:00 BP 159 / 86; Pulse 53; Resp 16; Pulse Ox 100% on R/A; pf1 17:36 Body Mass Index 32.08 (104.33 kg, 180.34 cm) ld1 17:36 Pain Scale: Adult ld1 MDM: 17:38 Patient medically screened. rt 23:38 Differential Diagnosis altered mental status, sepsis, flu. Data reviewed: vital signs, sp4 nurses notes. 23:39 ED course: Repeat troponin is a stable value. . sp4 23:39 ED course: Initial troponin 61.7 and repeat troponin is 61.0. Likely secondary to sp4 impaired renal clearance. Patient asymptomatic at this time. Patient stable for discharge home and will be advised to follow-up with his regular hemodialysis on Sunday. . 03/05 17:42 Order name: Basic Metabolic Panel; Complete Time: 19:19 rt 03/05 17:42 Order name: CBC with Diff; Complete Time: 19:07 rt 03/05 17:42 Order name: LFT's; Complete Time: 19:19 rt 03/05 17:42 Order name: Magnesium; Complete Time: 19:19 rt 03/05 17:42 Order name: Troponin HS; Complete Time: 19:19 rt 03/05 17:42 Order name: Phosphorus; Complete Time: 19:19 rt 03/05 20:10 Order name: Troponin High Sensitivity; Complete Time: 23: rt 03/05 17:42 Order name: XRAY Chest (1 view); Complete Time: 19:07 rt 03/05 17:42 Order name: EKG; Complete Time: 17:43 rt 03/05 17:42 Order name: Cardiac monitoring; Complete Time: 18:28 rt 03/05 17:42 Order name: EKG - Nurse/Tech; Complete Time: 19:19 rt 03/05 17:42 Order name: IV Saline Lock; Complete Time: 18:37 rt 03/05 17:42 Order name: Labs collected and sent; Complete Time: 18:37 rt 03/05 17:42 Order name: O2 Per Protocol; Complete Time: 18:28 rt 03/05 17:42 Order name: O2 Sat Monitoring; Complete Time: 18:28 rt EC:25 Rate is 48 beats/min. Rhythm is regular, Sinus bradycardia with No ectopy, LVH present. rt Left axis deviation noted. GA interval is normal. QRS interval is normal. QT interval is normal. Administered Medications: No medications were administered Disposition Summary: 03/05/23 23:28 Discharge Ordered Problem: new sp4 Symptoms: have improved sp4 Condition: Stable sp4 Diagnosis - Dyspnea, unspecified sp4 - End-stage renal disease on hemodialysis sp4 Followup: sp4 - With: Private Physician - When: 1 - 2 days - Reason: Recheck today's complaints Discharge Instructions: - Discharge Summary Sheet sp4 - Hemodialysis, [id number] sp4 - Pyogenic Granuloma sp4 Forms: - Patient Portal Instructions sp4 Signatures: Dispatcher [employer] EDMS Viktoria Lu RN RN ld1 Terry Moulton MD MD rt Potepalov, Vin, MD MD sp4
--- NOTE | 2023-03-05 23:29 | ER ---
Nurse's Notes [facility] Name: Zander Melvin Age: 62 yrs Sex: Male : 1960 Arrival Date: 03/05/2023 Time: 17:18 Bed 16 Private MD: Diagnosis: Dyspnea, unspecified;End-stage renal disease on hemodialysis Presentation: 03/05 17:36 Chief complaint: Patient states: Problem with dialysis catheter - "I need my blood ld1 count checked." Shortness of breath since last night. Coronavirus screen: At this time, the client does not indicate any symptoms associated with coronavirus-19. Ebola Screen: No symptoms or risks identified at this time. Initial Sepsis Screen: Does the patient meet any 2 criteria? No. Patient's initial sepsis screen is negative. Does the patient have a suspected source of infection? No. Patient's initial sepsis screen is negative. Risk Assessment: Do you want to hurt yourself or someone else? Patient reports no desire to harm self or others. Onset of symptoms was March 05, 2023. 17:36 Method Of Arrival: Ambulatory ld1 17:36 Acuity: JAMES 3 ld1 Triage Assessment: 17:37 General: Appears in no apparent distress. comfortable, Behavior is calm, cooperative, ld1 appropriate for age. Pain: Denies pain. EENT: No signs and/or symptoms were reported regarding the EENT system. Neuro: Level of Consciousness is awake, alert, obeys commands, Oriented to person, place, time, situation. Cardiovascular: Capillary refill < 3 seconds Patient's skin is warm and dry. Respiratory: Airway is patent Respiratory effort is even, unlabored. GI: Abdomen is flat, non-distended. : No signs and/or symptoms were reported regarding the genitourinary system. Derm: No signs and/or symptoms reported regarding the dermatologic system. Musculoskeletal: No signs and/or symptoms reported regarding the musculoskeletal system. Historical: - Allergies: 17:37 No Known Allergies; ld1 - PMHx: 17:37 Hypertensive disorder; ld1 - PSHx: 17:37 I\\T\\D facial abscess; ld1 - Immunization history:: Adult Immunizations up to date. - Social history:: Smoking status: Patient denies any tobacco usage or history of. Patient/guardian denies using alcohol. - Family history:: not pertinent. Screenin:36 [facility] ED Fall Risk Assessment (Adult) History of falling in the last 3 months, cp4 including since admission No falls in past 3 months (0 pts) Confusion or Disorientation No (0 pts) Intoxicated or Sedated No (0 pts) Impaired Gait No (0 pts) Mobility Assist Device Used No (0 pt) Altered Elimination No (0 pt) Score/Fall Risk Level 0 - 2 = Low Risk Oriented to surroundings, Maintained a safe environment, Educated pt \\T\\ family on fall prevention, incl call for assistance when getting out of bed, Assessed \\T\\ reinforced patient's understanding of fall precautions, Provided non-skid footwear, Hourly rounding (assess needs \\T\\ fall precautionary measures) done. Abuse screen: Denies threats or abuse. Nutritional screening: No deficits noted. Tuberculosis screening: No symptoms or risk factors identified. Assessment: 18:36 General: Appears in no apparent distress. Behavior is calm, cooperative, appropriate cp4 for age. Pain: Denies pain. 23:00 Reassessment: Patient appears in no apparent distress at this time. Patient and/or pf1 family updated on plan of care and expected duration. Pain level reassessed. Patient states feeling better. Patient states symptoms have improved. Vital Signs: 17:36 BP 164 / 84; Pulse 66; Resp 18; Temp 98.1(TE); Pulse Ox 100% on R/A; Weight 104.33 kg; ld1 Height 5 ft. 11 in. ; Pain 0/10; 19:13 BP 166 / 89; Pulse 52; Pulse Ox 100% on R/A; ap3 20:00 BP 171 / 100; Pulse 45; Resp 18; Pulse Ox 100% ; cp4 21:00 BP 166 / 99; Pulse 44; Resp 18; Pulse Ox 100% ; pf1 22:00 BP 166 / 102; Pulse 52; Resp 18; Pulse Ox 100% ; pf1 23:00 BP 159 / 86; Pulse 53; Resp 16; Pulse Ox 100% on R/A; pf1 17:36 Body Mass Index 32.08 (104.33 kg, 180.34 cm) ld1 17:36 Pain Scale: Adult ld1 ED Course: 17:21 Patient arrived in ED. ae5 17:35 Terry Moulton MD is Attending Physician. rt 17:37 Triage completed. ld1 17:37 Arm band placed on right wrist. ld1 18:13 XRAY Chest (1 view) In Process Unspecified. EDMS 18:28 Tamar Thompson is Primary Nurse. cp4 18:36 Bed in low position. Call light in reach. Side rails up X 1. cp4 18:37 No provider procedures requiring assistance completed. Inserted saline lock: 20 gauge cp4 in left antecubital area, using aseptic technique. Blood collected. 18:38 Basic Metabolic Panel Sent. cp4 18:38 CBC with Diff Sent. cp4 18:38 LFT's Sent. cp4 18:38 Magnesium Sent. cp4 18:38 Troponin HS Sent. cp4 20:15 Attending Physician role handed off by Terry Moulton MD sp4 20:15 Vin Washburn MD is Attending Physician. sp4 20:50 Troponin High Sensitivity Sent. cp4 23:45 Provided Education on: follow up and dialysis. pf1 23:45 IV discontinued, intact, bleeding controlled, No redness/swelling at site. Pressure pf1 dressing applied. Administered Medications: No medications were administered Medication: 18:36 VIS not applicable for this client. cp4 Outcome: 23:28 Discharge ordered by MD. sp4 23:45 Discharged to home ambulatory, pf1 23:45 Condition: improved 23:45 Discharge instructions given to patient, Instructed on discharge instructions, follow up and referral plans. Demonstrated understanding of instructions, follow-up care, 23:54 Patient left the ED. pf1 Signatures: Dispatcher [employer] EDND Vonda Connelly RN RN ap3 Viktoria Lu RN RN ld1 Terry Moulton MD MD rt Fely Esposito RN RN pf1 Vin Washburn MD MD sp4 Potter, Christina cp4 Obdulia Malloy ae5 Corrections: (The following items were deleted from the chart) 17:39 17:36 Chief complaint: Patient states: Problem with dialysis catheter - "I need my ld1 blood count checked." ld1 23:53 20:00 BP 166 / 99; Pulse 44bpm; Resp 18bpm; Pulse Ox 100%; cp4 pf1
[2023-03-06 05:44] VITALS: BP 159/86; TEMP 98.1; O2SAT 100
--- NOTE | 2023-03-06 17:49 | EKG ---
Test Date: 2023-03-05 Test Time: 19:12:23 Multimedia Developer: ARCELIA MEASUREMENT RESULTS: Intervals: Rate: 48 [place]: 192 QRSD: 140 QT: 468 QTc: 418 [place]: P: 56 [place]: 192 QRS: -38 T: 100 INTERPRETIVE STATEMENTS: Sinus bradycardia Left axis deviation Left ventricular hypertrophy with QRS widening and repolarization abnormality Abnormal ECG Compared to ECG 03/01/2023 19:16:36 Left-axis deviation now present Early repolarization now present T-wave abnormality no longer present Electronically Signed On 03-06-23 17:48:32 STREAMING MEDIA SPECIALIST by Jules Riddle
== END ==
LOC: ER 17:18
DX: R06.00 Dyspnea, unspecified (principal); I12.0 Hypertensive chronic kidney disease with stage 5 chronic kidney disease or end stage renal disease; N18.6 End stage renal disease; Z99.2 Dependence on renal dialysis
CPT/HCPCS: 36415; 71045; 80048; 80076; 83735; 84100; 84484; 85025; 93005; 99284

== ENCOUNTER 2023-03-07 13:57 | Observation (INO) | payer SELFPAY ==
[2023-03-07] MEDS ORDERED: NA CHLORIDE 0.9% 1,000 ML ONE (14:27)
[2023-03-07 14:55] LABS: Absolute Lymphocytes (CBC) 1.3 K/uL (0.7-4.9); Hematocrit 29.2 % (39.6-49.0); Lymphocytes % 36.3 % (15.3-44.8); MCV 84.3 fL (80-100); MPV 8.1 fL (7.6-11.3); Platelets 156 thou/uL (152-406); RBC Red Blood Cell Count 3.47 M/uL (4.33-5.43)
[2023-03-07 15:08] LABS: SARS-CoV-2 Antigen Rapid Res Negative (Negative)
[2023-03-07 15:16] LABS: ALT/SGPT 47 U/L (16-61); Albumin 2.8 g/dL (3.4-5.0); Alkaline Phosphatase 58 U/L (45-117); BUN Blood Urea Nitrogen 61 mg/dL (7-18); Bicarbonate 22 mEq/L (21-32); Bilirubin Total 0.3 mg/dL (0.2-1.0); Glomerular Filtration Rate 10 ml/min (=/>90); Glucose Level 89 mg/dL (74-106); Lipase 24 U/L (13-75); NT PRO-BNP 330 pg/mL (<125); Protein, Total 6.7 g/dL (6.4-8.2); Sodium Level 139 mEq/L (136-145)
[2023-03-07 15:18] LABS: AST/SGOT 34 U/L (15-37); Bilirubin Direct < 0.1 mg/dL (0-0.2); Bilirubin Indirect, Calculated ND mg/dL (0.2-0.8); Potassium 5.2 mEq/L (3.5-5.1)
--- NOTE | 2023-03-07 15:18 | RAD REPORT ---
EXAM DESCRIPTION: RAD - Chest Single View - 03/07/2023 3:10 pm CLINICAL HISTORY: DYSPNEA Chest pain. COMPARISON: Chest Single View dated 03/05/2023; Chest Single View dated 03/01/2023; Chest Single View dated 02/20/2023; Chest Single View dated 02/19/2023 FINDINGS: Portable technique limits examination quality. Mild interstitial pulmonary edema. The heart is mildly enlarged in size. No displaced fractures.Right -sided venous catheter its tip in the SVC. IMPRESSION: Mild interstitial pulmonary edema.
--- NOTE | 2023-03-07 15:18 | EDPHYS ---
Physician Documentation [facility] Name: Zander Melvin Age: 62 yrs Sex: Male : 1960 Arrival Date: 03/07/2023 Time: 13:57 Bed 5 Private MD: ED Physician Triston Murphy HPI: 03/07 15:06 This 62 yrs old Black Male presents to ER via Ambulatory with complaints of Breathing dee Difficulty. 15:06 The patient has shortness of breath at rest, with light activity. Onset: The dee symptoms/episode began/occurred 1 day(s) ago. Duration: The symptoms are continuous, and are steadily getting worse. The patient's shortness of breath is aggravated by exertion, light activity, supine position. Associated signs and symptoms: Pertinent positives: non-productive cough. Severity of symptoms: At their worst the symptoms were moderate in the emergency department the symptoms are unchanged. The patient has experienced similar episodes in the past, several times. Historical: - Allergies: 14:07 No Known Allergies; ap3 - PMHx: 14:07 Hypertensive disorder; Dialysis MWF (I\T\D facial abscess); ap3 - PSHx: 14:07 I\T\D facial abscess; ap3 - Immunization history:: Client reports receiving the 2nd dose of the Covid vaccine, Flu vaccine is not up to date. - Social history:: Smoking status: Patient denies any tobacco usage or history of. ROS: 15:08 Constitutional: Negative for fever, chills, and weight loss, Eyes: Negative for injury, dee pain, redness, and discharge, ENT: Negative for injury, pain, and discharge, Neck: Negative for injury, pain, and swelling, Cardiovascular: Negative for chest pain, palpitations, and edema, Abdomen/GI: Negative for abdominal pain, nausea, vomiting, diarrhea, and constipation, Back: Negative for injury and pain, : Negative for injury, bleeding, discharge, and swelling, MS/Extremity: Negative for injury and deformity, Skin: Negative for injury, rash, and discoloration, Neuro: Negative for headache, weakness, numbness, tingling, and seizure, Psych: Negative for depression, anxiety, suicide ideation, homicidal ideation, and hallucinations, Allergy/Immunology: Negative for hives, rash, and allergies, Endocrine: Negative for neck swelling, polydipsia, polyuria, polyphagia, and marked weight changes, Hematologic/Lymphatic: Negative for swollen nodes, abnormal bleeding, and unusual bruising, 15:08 Respiratory: Positive for cough, shortness of breath, at rest. Exam: 15:08 Constitutional: This is a well developed, well nourished patient who is awake, alert, dee and in no acute distress. Head/Face: Normocephalic, atraumatic. Eyes: Pupils equal round and reactive to light, extra-ocular motions intact. Lids and lashes normal. Conjunctiva and sclera are non-icteric and not injected. Cornea within normal limits. Periorbital areas with no swelling, redness, or edema. ENT: Nares patent. No nasal discharge, no septal abnormalities noted. Tympanic membranes are normal and external auditory canals are clear. Oropharynx with no redness, swelling, or masses, exudates, or evidence of obstruction, uvula midline. Mucous membranes moist. Neck: Trachea midline, no thyromegaly or masses palpated, and no cervical lymphadenopathy. Supple, full range of motion without nuchal rigidity, or vertebral point tenderness. No Meningismus. Chest/axilla: Normal chest wall appearance and motion. Nontender with no deformity. No lesions are appreciated. Cardiovascular: Regular rate and rhythm with a normal S1 and S2. No gallops, murmurs, or rubs. Normal PMI, no JVD. No pulse deficits. Respiratory: Lungs have equal breath sounds bilaterally, clear to auscultation and percussion. No rales, rhonchi or wheezes noted. No increased work of breathing, no retractions or nasal flaring. Abdomen/GI: Soft, non-tender, with normal bowel sounds. No distension or tympany. No guarding or rebound. No evidence of tenderness throughout. Back: No spinal tenderness. No costovertebral tenderness. Full range of motion. Male : Normal genitalia with no discharge or lesions. Skin: Warm, dry with normal turgor. Normal color with no rashes, no lesions, and no evidence of cellulitis. MS/ Extremity: Pulses equal, no cyanosis. Neurovascular intact. Full, normal range of motion. Neuro: Awake and alert, GCS 15, oriented to person, place, time, and situation. Cranial nerves II-XII grossly intact. Motor strength 5/5 in all extremities. Sensory grossly intact. Cerebellar exam normal. Normal gait. Psych: Awake, alert, with orientation to person, place and time. Behavior, mood, and affect are within normal limits. 15:08 ECG was reviewed by the Attending Physician. Vital Signs: 14:05 BP 150 / 83; Pulse 70; Resp 19; Temp 97.9; Pulse Ox 100% ; Weight 102.06 kg; Height 5 ap3 ft. 11 in. ; 14:34 BP 151 / 85; Pulse 65; Resp 15; Pulse Ox 98% ; ko1 15:12 BP 156 / 86; Pulse 55; Resp 16; Pulse Ox 98% ; ko1 17:03 BP 147 / 81; Pulse 87; Resp 15; Pulse Ox 99% ; ko1 14:05 Body Mass Index 31.38 (102.06 kg, 180.34 cm) ap3 MDM: 14:04 Patient medically screened. dee 15:11 Differential diagnosis: Anemia asthma, Bronchitis CHF exacerbation, pulmonary edema, dee reactive airway disease, Sepsis Unstable Angina. Antibiotic administration: Not indicated. Immunization status: Influenza vaccine: within last 5 years. Data reviewed: vital signs, nurses notes, lab test result(s), EKG, radiologic studies, plain films. Consideration of Admission/Observation Patient was admitted/placed on observation. Escalation of care including admission/observation considered. I considered the following discharge prescriptions or medication management in the emergency department Medications were administered in the Emergency Department. See MAR. Independent interpretation of the following test(s) in the Emergency Department EKG: See my EKG interpretation above. Test considered but Not performed: Ultrasound no 2 d echo. Care significantly affected by the following chronic conditions: Hypertension, Chronic Kidney Disease. Counseling: I had a detailed discussion with the patient and/or guardian regarding the historical points, exam findings, and any diagnostic results supporting the discharge/admit diagnosis, lab results, radiology results, the need for further work-up and treatment in the hospital. 03/07 14:05 Order name: Basic Metabolic Panel; Complete Time: 15:20 [facility] 03/07 14:05 Order name: CBC with Diff; Complete Time: 15:20 [facility] 03/07 14:05 Order name: LFT's; Complete Time: 15:20 [facility] 03/07 14:05 Order name: Magnesium; Complete Time: 15:20 [facility] 03/07 14:05 Order name: NT PRO-BNP; Complete Time: 15:20 [facility] 03/07 14:05 Order name: PT-INR dee 03/07 14:05 Order name: Troponin HS; Complete Time: 15:20 dee 03/07 14:05 Order name: Flu dee 03/07 14:05 Order name: SARS RAPID; Complete Time: 15:20 dee 03/07 14:05 Order name: Urinalysis w/ reflexes dee 03/07 14:05 Order name: Lipase; Complete Time: 15:20 dee 03/07 16:11 Order name: Urinalysis w/ reflexes EDMS 03/07 16:11 Order name: Basic Metabolic Panel EDMS 03/07 16:11 Order name: Basic Metabolic Panel EDMS 03/07 16:11 Order name: Basic Metabolic Panel EDMS 03/07 16:11 Order name: Basic Metabolic Panel EDMS 03/07 16:11 Order name: Basic Metabolic Panel EDMS 03/07 16:11 Order name: Basic Metabolic Panel EDMS 03/07 16:11 Order name: CBC with Automated Diff EDMS 03/07 16:11 Order name: CBC with Automated Diff EDMS 03/07 16:11 Order name: CBC with Automated Diff EDMS 03/07 16:11 Order name: CBC with Automated Diff EDMS 03/07 16:11 Order name: CBC with Automated Diff EDMS 03/07 16:11 Order name: CBC with Automated Diff EDMS 03/07 16:11 Order name: Magnesium EDMS 03/07 16:11 Order name: Magnesium EDMS 03/07 16:11 Order name: Magnesium EDMS 03/07 16:11 Order name: Magnesium EDMS 03/07 16:11 Order name: Magnesium EDMS 03/07 16:11 Order name: Magnesium EDMS 03/07 16:11 Order name: Phosphorus EDMS 03/07 16:11 Order name: Phosphorus EDMS 03/07 16:11 Order name: Phosphorus EDMS 03/07 16:11 Order name: Phosphorus EDMS 03/07 16:11 Order name: Phosphorus EDMS 03/07 16:11 Order name: Phosphorus EDMS 03/07 16:11 Order name: Troponin High Sensitivity EDMS 03/07 16:11 Order name: Troponin High Sensitivity EDMS 03/07 16:11 Order name: Troponin High Sensitivity EDMS 03/08 05:54 Order name: Troponin High Sensitivity EDMS 03/07 14:05 Order name: XRAY Chest (1 view); Complete Time: 15:20 [facility] 03/07 14:05 Order name: EKG; Complete Time: 14:05 [facility] 03/07 16:11 Order name: CONS Physician Consult [facility] 03/07 14:05 Order name: Cardiac monitoring; Complete Time: 14:31 [facility] 03/07 14:05 Order name: EKG - Nurse/Tech; Complete Time: 14:47 [facility] 03/07 14:05 Order name: IV Saline Lock; Complete Time: 14:31 [facility] 03/07 14:05 Order name: Labs collected and sent; Complete Time: 14:47 [facility] 03/07 14:05 Order name: O2 Per Protocol; Complete Time: 14:18 [facility] 03/07 14:05 Order name: O2 Sat Monitoring; Complete Time: 14:18 [facility] 03/07 15:03 Order name: Labs - recollect needed: recollect blue top; Complete Time: 15:23 bd EC:08 Rate is 51 beats/min. Rhythm is regular. QRS [place] is Normal. MI interval is normal. QRS dee interval is normal. QT interval is normal. No Q waves. T waves are Normal. Clinical impression: Sinus bradycardia and No evidence of ischemia. Interpreted by me. Reviewed by me. Administered Medications: 14:38 Drug: NS 0.9% IV 1000 ml IV at 75 ml/hr continuous Route: IV; Rate: 75 ml/hr; Site: [facility] left forearm; 21:00 Follow up: IV Status: Order to discontinue infusion km8 17:18 Not Given (Patient Refused): [id number] grams PO once nj1 Disposition Summary: 03/07/23 15:17 Hospitalization Ordered Notes: Hospitalization Status: Observation dee Provider: [place] cha Condition: Fair dee Problem: new dee Symptoms: have improved dee Bed/Room Type: Standard dee [facility]09[facility] bd Room Assignment: ERHOLD-(03/07/23 17:09) bd Diagnosis - Dyspnea dee - End stage renal disease - on HD dee - Abnormal levels of other serum enzymes - ELEVATED TROPONIN dee - Hyperkalemia dee - Anemia, unspecified dee - Combined systolic (congestive) and diastolic (congestive) heart failure dee Forms: - Medication Reconciliation Form dee - SBAR form dee - Leadership Thank You Letter dee Signatures: Dispatcher [employer] EDMS Dirrim, Any bd Jeffrey, Triston, MD MD dee Prokisch, Vonda, RN RN ap3 Karoline Aceves RN RN nj1 Mlely Lino RN [id number] Corrections: (The following items were deleted from the chart) 15:17 Telemetry/MedSurg (observation) critical [facility] 15:17 critical access hospital
--- NOTE | 2023-03-07 15:18 | ER ---
Nurse's Notes [facility] Name: Zander Melvin Age: 62 yrs Sex: Male : 1960 Arrival Date: 03/07/2023 Time: 13:57 Bed 5 Private MD: Diagnosis: Dyspnea;End stage renal disease-on HD;Abnormal levels of other serum enzymes-ELEVATED TROPONIN;Hyperkalemia;Anemia, unspecified;Combined systolic (congestive) and diastolic (congestive) heart failure Presentation: 03/07 14:05 Chief complaint: Patient states: he has been having a difficult time breathing since ap3 yesterday. patient states he is a MWF dialysis patient, who has not had dialysis since Sunday03/03/2023. Coronavirus screen: At this time, the client does not indicate any symptoms associated with coronavirus-19. Ebola Screen: No symptoms or risks identified at this time. Initial Sepsis Screen: Does the patient meet any 2 criteria? No. Patient's initial sepsis screen is negative. Does the patient have a suspected source of infection? No. Patient's initial sepsis screen is negative. Risk Assessment: Do you want to hurt yourself or someone else? Patient reports no desire to harm self or others. Onset of symptoms was March 06, 2023. 14:05 Method Of Arrival: Ambulatory ap3 14:05 Acuity: JAMES 3 ap3 Triage Assessment: 14:07 General: Appears in no apparent distress. Behavior is calm, cooperative, appropriate ap3 for age. Pain: Denies pain. Neuro: Level of Consciousness is awake, alert, obeys commands, Oriented to person, place, time, situation. Cardiovascular: Patient's skin is warm and dry. Cardiovascular: Dialysis shunt: in the anterior aspect of right upper chest. Respiratory: Reports shortness of breath Airway is patent Respiratory effort is even, unlabored, Respiratory pattern is regular, symmetrical, Onset: The symptoms/episode began/occurred yesterday. 14:08 Respiratory: ap3 Historical: - Allergies: 14:07 No Known Allergies; ap3 - PMHx: 14:07 Hypertensive disorder; Dialysis MWF (I\T\D facial abscess); ap3 - PSHx: 14:07 I\T\D facial abscess; ap3 - Immunization history:: Client reports receiving the 2nd dose of the Covid vaccine, Flu vaccine is not up to date. - Social history:: Smoking status: Patient denies any tobacco usage or history of. Screenin:08 [facility] ED Fall Risk Assessment (Adult) History of falling in the last 3 months, ap3 including since admission No falls in past 3 months (0 pts). Abuse screen: Denies threats or abuse. Nutritional screening: No deficits noted. Tuberculosis screening: No symptoms or risk factors identified. Assessment: 14:30 Reassessment: See triage assessment. nj1 14:30 General: Appears in no apparent distress. comfortable, Behavior is calm, cooperative, nj1 appropriate for age. Pain: Denies pain. Neuro: Level of Consciousness is awake, alert, obeys commands, Oriented to person, place, time, situation. Cardiovascular: Patient's skin is warm and dry. Rhythm is regular. Respiratory: Airway is patent Respiratory effort is even, unlabored. 03/08 14:24 Reassessment: Pt transported to dialysis. tl4 Vital Signs: 03/07 14:05 BP 150 / 83; Pulse 70; Resp 19; Temp 97.9; Pulse Ox 100% ; Weight 102.06 kg; Height 5 ap3 ft. 11 in. ; 14:34 BP 151 / 85; Pulse 65; Resp 15; Pulse Ox 98% ; ko1 15:12 BP 156 / 86; Pulse 55; Resp 16; Pulse Ox 98% ; ko1 17:03 BP 147 / 81; Pulse 87; Resp 15; Pulse Ox 99% ; ko1 14:05 Body Mass Index 31.38 (102.06 kg, 180.34 cm) ap3 ED Course: 14:00 Patient arrived in ED. mg5 14:04 Triston Murphy MD is Attending Physician. dee 14:07 Triage completed. ap3 14:08 Arm band placed on left wrist. ap3 14:10 Arm band placed on Patient placed in an exam room, on a stretcher. ll1 14:17 Karoline Aceves RN is Primary Nurse. nj1 14:34 Patient has correct armband on for positive identification. Placed in gown. Bed in low ko1 position. Call light in reach. Side rails up X 1. Provided Education on: na. Client placed on continuous cardiac and pulse oximetry monitoring. NIBP monitoring applied. alarm security or surveillance monitor on. Door closed. Noise minimized. Lights dimmed. Warm blanket given. 14:38 Inserted saline lock: 20 gauge in left forearm, using aseptic technique. Blood nj1 collected. 15:12 XRAY Chest (1 view) In Process Unspecified. EDMS 15:12 No provider procedures requiring assistance completed. ko1 15:16 [place] is Hospitalizing Provider. [facility] 21:00 Patient admitted, IV remains in place. km8 Administered Medications: 14:38 Drug: NS 0.9% IV 1000 ml IV at 75 ml/hr continuous Route: IV; Rate: 75 ml/hr; Site: [facility] left forearm; 21:00 Follow up: IV Status: Order to discontinue infusion km8 17:18 Not Given (Patient Refused): [id number] grams PO once nj1 Medication: 15:12 VIS not applicable for this client. ko1 Outcome: 15:17 Decision to Hospitalize by Provider. [facility] 21:00 Condition: stable km8 21:00 Admitted to ER Hold. Please see [facility] for further documentation. km8 21:00 Instructed on the need for admit, Demonstrated understanding of instructions, 03/08 20:18 Patient left the ED. jb4 Signatures: Dispatcher [employer] EDMS Triston Murphy MD MD cha Bryson, James, RN RN jb4 Vonda Connelly RN RN karel3 Susy Norton, RN RN boris1 Lauren Amaro, RN RN ko1 Karoline Aceves, RN RN nj1 Mylene Cool [facility] Melly Lino, RN RN km8 Zachary Lantigua tl4 Corrections: (The following items were deleted from the chart) 03/07 18:03 14:38 Inserted saline lock: 20 gauge in right forearm, using aseptic technique. Blood nj1 collected. nj1
[2023-03-07 15:19] LABS: Magnesium 2.1 mg/dL (1.6-2.4)
[2023-03-07 15:20] LABS: Troponin High Sensitivity 65.4 pg/mL (<58.9)
[2023-03-07 15:33] LABS: Specific Gravity 1.013 (1.005-1.030); Urine Bacteria None Seen /HPF (<20); Urine Bilirubin NEGATIVE (Negative); Urine Blood 1+ (Negative); Urine Clarity Clear (Clear); Urine Color Light-Yellow (Yellow); Urine Crystals Unidentified Few /HPF (None Seen); Urine Glucose NEGATIVE (Negative); Urine Protein 2+ (Negative); Urine RBC 21-50 /HPF (None Seen); Urine Urobilinogen Normal (Normal); Urine pH 6.5 (5.0-7.0)
[2023-03-07 15:43] LABS: Protime INR 1.07
--- NOTE | 2023-03-07 15:47 | P.HP ---
Certification for Inpatient Patient admitted to: Observation With expected LOS: >2 Midnights Patient will require the following post-hospital care: None Practitioner: I am a practitioner with admitting privileges, knowledge of patient current condition, hospital course, and medical plan of care. Services: Services provided to patient in accordance with Admission requirements found in Title 42 Section 412.3 of the Code of Federal Regulations Patient History Date of Service: 03/08/23 Reason for admission: SOB, fluid volume overload History of Present Illness: Zander Melvin is a 62-year-old male with past medical history of hypertensive disorder and ESRD on dialysis who presented to the ED c/o SOB. His reports the last dialysis that he attended was Friday 03/03. He had presented to the ED on Sunday 03/05 with c/o dialysis catheter problems and was discharged home after this was resolved. He missed dialysis Sunday d/t this problem. He reports his brother is his only transport to dialysis. He lives with his sister. Per Nephrology's note on 03/03, Mr. Melvin is having trouble securing a dialysis location d/t insurance problems. Initial vital BP 150 / 83; Pulse 70; Resp 19; Temp 97.9; Pulse Ox 100% EKG Rate is 51 beats/min. Rhythm is regular. QRS [place] is Normal. [place] interval is normal. QRS interval is normal. QT interval is normal. No Q waves. T waves are Normal. Sinus bradycardia and No evidence of ischemia. Laboratory evaluation sodium 139, potassium 5.2, CO2 22, BUN/creatinine 61/6.08, GFR 10, troponin 65.4, BNP 330, COVID-negative Chest xray reports " Mild interstitial pulmonary edema. The heart is mildly enlarged in size. No displaced fractures.Right-sided venous catheter its tip in the SVC. Mild interstitial pulmonary edema." Zander Melvin will be admitted to hospitalist service for further treatment of fluid volume overload, hyperkalemia, elevated troponin. Nephrology consulted. Allergies No Known Allergies Allergy (Unverified 06/29/14 13:48) Home Medications: Hydralazine HCl 100 mg PO TID 90 Days #270 tab 02/16/23 Losartan Potassium [Cozaar*] 50 mg PO BID 90 Days #180 tab 02/16/23 Nifedipine [Procardia Xl] 90 mg PO BID 90 Days #180 tab 01/05/24 cloNIDine HCL [Catapres*] 0.1 mg PO BID 30 Days #60 tab 03/03/23 - Past Medical/Surgical History Diabetic: Yes -: HTN -: CKD -: DM -: ESRD - Social History Smoking Status: Unknown if ever smoked Alcohol use: Yes CD- Drugs: Yes Caffeine use: Yes Review of Systems Respiratory: Shortness of Breath Physical Examination - Physical Exam General: Alert, In no apparent distress, Oriented x3 HEENT: Atraumatic, Normocephalic, PERRLA Neck: Supple, 2+ carotid pulse no bruit, JVD not distended Respiratory: Clear to auscultation bilaterally, Normal air movement Cardiovascular: Normal pulses, Regular rate/rhythm, Normal S1 S2, Edema (trace to BLE) Capillary refill: <2 Seconds Gastrointestinal: Normal bowel sounds, Soft and benign Musculoskeletal: No clubbing, No swelling, No contractures Integumentary: No rashes, No breakdown, No significant lesion Neurological: Normal speech, Normal strength at 5/5 x4 extr, Normal tone - Studies Laboratory Data (last 24 hrs) 03/07/23 03/07/23 03/07/23 15:20 14:38 14:38 WBC 3.70 L Hgb 9.8 L Hct 29.2 L Plt Count 156 PT 11.8 INR 1.07 Sodium 139 Potassium 5.2 H BUN 61 H Creatinine 6.08 H Glucose 89 Magnesium 2.1 Total Bilirubin 0.3 AST 34 ALT 47 Alkaline Phosphatase 58 Lipase 24 Microbiology Data (last 24 hrs): 03/07/23 14:30 Nasopharnyx Influenza Type B Antigen Screen - Final Assessment and Plan - Plan assessment and plan ESRD on hemodialysis assciated with Hyperkemia SOB 2/2 fluid volume overload Elevated troponin Chest xray reports " Mild interstitial pulmonary edema." K 5.2, BUN/Creatinine 61/6.08, GFR 10, BNP 330, Trop 654 serial pending kayexelate and NS given in the ED Nephrology consult, Dr. Renee-recommendations appreciated Lasix 40 mg IV x 1 strict I and O daily weight consult CM for help securing a dialysis location Hypertensive disorder Monitor BP q4h Continue home medications DVT ppx SCD Full code LOS 48 hours Discharge Plan: Home Plan to discharge in: 48 Hours - Advance Directives Does patient have a Living Will: No Does patient have a Durable POA for Healthcare: No Time Spent Managing Pts Care (In Minutes): 50
[2023-03-07] MEDS ORDERED: SOD POLYSTYREN SUL 15 GM/60 ML UCUP ONE (17:10)
[2023-03-07 18:03] VITALS: BMI 31.4
[2023-03-07] MEDS ORDERED: LOSARTAN POTASSIUM 50 MG TABLET ONE (21:38)
[2023-03-07] MEDS ORDERED: HYDRALAZINE HCL 25 MG TABLET ONE (21:38)
[2023-03-07] MEDS: LOSARTAN POTASSIUM 50 MG TABLET PO SCH (21:50)
[2023-03-07] MEDS: HYDRALAZINE HCL 25 MG TABLET PO SCH (21:50)
[2023-03-08] MEDS ORDERED: FUROSEMIDE 40 MG/4 ML VIAL IV ONE (00:12)
[2023-03-08] MEDS ORDERED: FUROSEMIDE 40 MG/4 ML VIAL ONE (02:37)
[2023-03-08 05:19] LABS: Absolute Lymphocytes (CBC) 1.3 K/uL (0.7-4.9); Hematocrit 28.7 % (39.6-49.0); Lymphocytes % 36.6 % (15.3-44.8); MCV 84.5 fL (80-100); Platelets 149 thou/uL (152-406)
[2023-03-08 05:40] LABS: Magnesium 2.1 mg/dL (1.6-2.4); Phosphorus 3.7 mg/dL (2.5-4.9); Potassium 4.6 mEq/L (3.5-5.1)
[2023-03-08 05:54] LABS: Troponin High Sensitivity 64.4 pg/mL (<58.9)
[2023-03-08 08:21] VITALS: TEMP 98
[2023-03-08] MEDS: HYDRALAZINE HCL 25 MG TABLET PO SCH (09:00)
[2023-03-08] MEDS: LOSARTAN POTASSIUM 50 MG TABLET PO SCH (09:00)
[2023-03-08] MEDS ORDERED: HYDRALAZINE HCL 25 MG TABLET ONE (12:16)
[2023-03-08] MEDS ORDERED: LOSARTAN POTASSIUM 50 MG TABLET ONE (12:17)
--- NOTE | 2023-03-08 13:43 | P.DS ---
Admission Date: 03/07/23 Discharge Date: 03/09/23 Disposition: ROUTINE DISCHARGE Discharge Condition: GOOD Reason for Admission: SOB, fluid volume overload Brief History of Present Illness: Diagnosis ESRD on hemodialysis assciated with Hyperkemia SOB 2/2 fluid volume overload Elevated troponin HPI 03/07/23 Zander Melvin is a 62-year-old male with past medical history of hypertensive disorder and ESRD on dialysis who presented to the ED c/o SOB. His reports the last dialysis that he attended was Friday 03/03. He had presented to the ED on Sunday 03/05 with c/o dialysis catheter problems and was discharged home after this was resolved. He missed dialysis Sunday d/t this problem. He reports his brother is his only transport to dialysis. He lives with his sister. Per Nephrology's note on 03/03, Mr. Melvin is having trouble securing a dialysis location d/t insurance problems. Initial vital BP 150 / 83; Pulse 70; Resp 19; Temp 97.9; Pulse Ox 100% EKG Rate is 51 beats/min. Rhythm is regular. QRS [place] is Normal. [place] interval is normal. QRS interval is normal. QT interval is normal. No Q waves. T waves are Normal. Sinus bradycardia and No evidence of ischemia. Laboratory evaluation sodium 139, potassium 5.2, CO2 22, BUN/creatinine 61/6.08, GFR 10, troponin 65.4, BNP 330, COVID-negative Chest xray reports " Mild interstitial pulmonary edema. The heart is mildly enlarged in size. No displaced fractures.Right-sided venous catheter its tip in the SVC. Mild interstitial pulmonary edema." Zander Melvin will be admitted to hospitalist service for further treatment of fluid volume overload, hyperkalemia, elevated troponin. Nephrology consulted. Hospital Course: Zander Melvin is a pleasant 62 year old male with a past medical history significant for hypertensive disorder and ESRD on dialysis who was admitted to the [facility] on 03/07/23 for SOB 2/2 fluid volume overload with hyperkalemia. Zander Melvin presented to the ED complaining of shortness of breath. Noted to have fluid overload and the on-call stenciling machine tender, Dr Renee, was consulted. He has tolerated IV lasix with UOP of 2175 OVN. Potassium has improved. He was taken for dialysis on 03/08/2023 and tolerated it well, he is tolerating PO diet, he is on RA with satisfactory oxygenation, and ambulates independently. He is hemodynamically stable and ready for discharge with improved breathing. On 03/08/23, Mr. Melvin was seen on morning rounds and deemed medically stable for discharge. Mr. Melvin was discharged with instructions to schedule follow-up appointments with Nephrology and PCP. No prescriptions this admission. The patient and family members were given the opportunity to ask questions and reported no further questions. Furthermore, all questions were answered to the best of my ability. A copy of this discharge summary will be sent to the above providers to facilitate continuity of care. Today, I personally spent 50 minutes with Mr. Melvin, of which greater than 50% of the time was spent in patient education, counseling, and coordination of care as described above. Physical Exam General: AAO x3, NAD, conversant HEENT: Atraumatic, Normocephalic, PERRLA Neck: Supple, 2+ carotid pulse no bruit, JVD not distended Respiratory: Clear to auscultation bilaterally, Normal air movement, symmetrical chest wall movement Cardiovascular: Normal pulses, RRR, Normal S1 S2, Edema (trace to BLE) Capillary refill: <2 Seconds Gastrointestinal: Normal bowel sounds, Soft and benign to palpation Musculoskeletal: No clubbing, No swelling, No contractures Integumentary: No rashes, No breakdown, No significant lesion Neurological: Normal speech, Normal strength at 5/5 x4 extr, Normal tone Vital Signs/Physical Exam: Temp Pulse Resp BP Pulse Ox 98 F 50 15 188/92 H 98 03/08/23 08:00 03/08/23 08:00 03/08/23 08:00 03/08/23 08:00 03/08/23 08:00 Laboratory Data at Discharge: WBC 3.50 thou/uL (4.3-10.9) L 03/08/23 04:52 Hgb 9.7 g/dL (13.6-17.9) L 03/08/23 04:52 Hct 28.7 % (39.6-49.0) L 03/08/23 04:52 Plt Count 149 thou/uL (152-406) L 03/08/23 04:52 PT 11.8 SECONDS (9.5-12.5) 03/07/23 15:20 INR 1.07 03/07/23 15:20 Sodium 141 mEq/L (136-145) 03/08/23 04:52 Potassium 4.6 mEq/L (3.5-5.1) 03/08/23 04:52 BUN 68 mg/dL (7-18) H 03/08/23 04:52 Creatinine 5.92 mg/dL (0.70-1.30) H 03/08/23 04:52 Glucose 131 mg/dL (74-106) H 03/08/23 04:52 Phosphorus 3.7 mg/dL (2.5-4.9) 03/08/23 04:52 Magnesium 2.1 mg/dL (1.6-2.4) 03/08/23 04:52 Total Bilirubin 0.3 mg/dL (0.2-1.0) 03/07/23 14:38 AST 34 U/L (15-37) 03/07/23 14:38 ALT 47 U/L (16-61) 03/07/23 14:38 Alkaline Phosphatase 58 U/L (45-117) 03/07/23 14:38 Lipase 24 U/L (13-75) 03/07/23 14:38 Home Medications: Hydralazine HCl 100 mg PO TID 90 Days #270 tab 02/16/23 Losartan Potassium [Cozaar*] 50 mg PO BID 90 Days #180 tab 02/16/23 Nifedipine [Procardia Xl] 90 mg PO BID 90 Days #180 tab 02/16/23 cloNIDine HCL [Catapres*] 0.1 mg PO BID 30 Days #60 tab 03/03/23 Heparin [Heparin 1,000 units/mL *] 6,000 unit IV EVERY HD PRN vial 03/08/23 Physician Discharge Instructions: Zander Melvin is a 62-year-old male with past medical history of hypertensive disorder and ESRD on dialysis who presented to the ED c/o SOB. He was found to be fluid volume overloaded with hyperkalemia and was admitted to [facility] on 03/07/2023 for dialysis. On-call stenciling machine tender, Dr Renee was consulted. He has tolerated IV lasix with UOP of 2175 OVN. Potassium has improved. He has tolerated dialysis, PO diet, on RA with satisfactory oxygenation, and ambulates independently. 1. Please call and schedule a follow-up appointment with your PCP in 3-5 days - Please follow-up with your PCP for medication refills/adjustments -Continue antihypertensives as prescribed by outside provider 2. Please call and schedule a follow-up appointment with Dr. Renee in 3-5 days for continued dialysis needs 3. Continue renal diet 4. No activity restriction 5. No prescriptions this admission Diet: Renal Activity: Ad sergio Followup: Chester Renee MD [ACTIVE - CAN ADMIT] - NONE,NONE [Primary Care Provider] - Time spent managing pt's care (in minutes): 50
--- NOTE | 2023-03-08 16:28 | EKG ---
Test Date: 2023-03-07 Test Time: 14:40:01 Optical Manufacturing Technician: ARCELIA MEASUREMENT RESULTS: Intervals: Rate: 51 SC: 180 QRSD: 122 QT: 436 QTc: 401 [place]: P: 59 SC: 180 QRS: -34 T: 96 INTERPRETIVE STATEMENTS: Sinus bradycardia Left axis deviation Left ventricular hypertrophy with QRS widening and repolarization abnormality Abnormal ECG Compared to ECG 03/05/2023 19:12:23 No significant changes Electronically Signed On 03-08-23 16:26:01 LABORER/KEY MAN by Jules Riddle
[2023-03-08 19:18] VITALS: BP 162/98
[2023-03-08 21:47] VITALS: O2SAT 99
--- NOTE | 2023-03-08 23:51 | CON ---
Date of Consultation: 03/08/2023 Chief Complaint: End-stage renal disease, fluid overload, shortness of breath. History Of Present Illness: The patient is a 62-year-old man with past medical history significant f or hypertensive heart disease; kidney disease; end-stage renal disease, on hemodialysis. He presente d with shortness of breath. The patient reports that he had last dialysis done . He was d ischarged. He missed dialysis on Sunday. Currently, he denies Review of Systems: Denies chest pain, palpitation. Physical Examination: Lungs: Clear to auscultation bilaterally. Heart: S1, S2. Abdomen: Soft, benign. Extremities: Slight edema. Laboratory Data: Chest x-ray showed mild interstitial pulmonary edema. Heart is mildly enlarged in size. No displaced fracture. Right-sided venous catheter tip in the SVC. Mild interstitial pulmona ry edema. BUN 61, creatinine 6.08, potassium 5.2, sodium 139, GFR 10. Troponin 65.4. BNP _. COVID negative. Past Medical History: Hypertension, CKD, end-stage renal disease, diabetes mellitus. Social History: Denies alcohol. Denies tobacco. Assessment And Plan: 1.End-stage renal disease and borderline hyperkalemia. Potassium control will be done with dialysis . The patient received Kayexalate. The patient received IV Lasix to induce diuresis and to control shortness of breath. The patient will have ultrafiltration with dialysis to treat fluid overload. C ontinue p.o. fluid restriction. Continue renal diet. 2.Hypertension. Blood pressure controlled. The patient is on multiple blood pressure medications. 3.Anemia. Monitor hemoglobin level. 4.Renal osteodystrophy. Monitor phosphorus level. Continue renal diet. EB/MODL Voice ID: [id number] Report ID: [id number]
== END 2023-03-08 21:00 | disposition home or self-care (01) ==
LOC: ER 13:57 → ERHOLD 16:06
PROVIDERS: ADMIT Internal Medicine; ATTEND Internal Medicine
DX: E87.70 Fluid overload, unspecified (principal); N18.6 End stage renal disease; E87.5 Hyperkalemia; D64.9 Anemia, unspecified; I50.42 Chronic combined systolic (congestive) and diastolic (congestive) heart failure; R06.00 Dyspnea, unspecified; N25.0 Renal osteodystrophy; I10 Essential (primary) hypertension; Z99.2 Dependence on renal dialysis; Z91.158 Patient's noncompliance with renal dialysis for other reason; Z11.52 Encounter for screening for COVID-19
CPT/HCPCS: 36415; 71045; 80048; 80076; 81001; 83690; 83735; 83880; 84100; 84484; 85025; 85610; 87804; 87811; 90935; 93005; G0378; J1644; J1940; J7030

== ENCOUNTER → 2023-03-13 | Emergency (ER) | payer SELFPAY ==
[2023-03-13 14:09] LABS: Absolute Lymphocytes (CBC) 1.6 K/uL (0.7-4.9); Hematocrit 30.1 % (39.6-49.0); Lymphocytes % 37.1 % (15.3-44.8); MCV 84.8 fL (80-100); MPV 7.8 fL (7.6-11.3); Platelets 164 thou/uL (152-406); RBC Red Blood Cell Count 3.55 M/uL (4.33-5.43)
[2023-03-13 14:29] LABS: Albumin 3.1 g/dL (3.4-5.0); Bilirubin Total 0.3 mg/dL (0.2-1.0); Magnesium 2.2 mg/dL (1.6-2.4); Phosphorus 3.3 mg/dL (2.5-4.9); Potassium 4.7 mEq/L (3.5-5.1); Protein, Total 7.2 g/dL (6.4-8.2)
--- NOTE | 2023-03-13 14:51 | EDPHYS ---
Physician Documentation [facility] Name: Zander Melvin Age: 62 yrs Sex: Male : 1960 Arrival Date: 03/13/2023 Time: 12:22 Bed DX1 Private MD: ED Physician Terry Moulton HPI: 03/13 13:52 This 62 yrs old Black Male presents to ER via Ambulatory with complaints of Dialysis. rt 13:52 Patient presents to the ED requesting dialysis. He has not had dialysis since . rt He came to check to see requires emergent dialysis currently. He said difficulty establishing with a dialysis home due to insurance issues, states that his sister is currently filling out paperwork today. Denies any symptoms currently.. Historical: - Allergies: 13:03 No Known Allergies; tl4 - PMHx: 13:03 DIALYSIS MWF (I\T\D facial abscess); Hypertensive disorder; tl4 - PSHx: 13:03 I\T\D facial abscess; tl4 - Immunization history:: Adult Immunizations unknown. - Social history:: Smoking status: Patient/guardian denies using tobacco, Stopped _ months ago 1.5. - Family history:: not pertinent. ROS: 13:52 Constitutional: Negative for fever, chills, and weight loss, Cardiovascular: Negative rt for chest pain, palpitations, and edema, Respiratory: Negative for shortness of breath, cough, wheezing, and pleuritic chest pain, Abdomen/GI: Negative for abdominal pain, nausea, vomiting, diarrhea, and constipation, MS/Extremity: Negative for injury and deformity, Skin: Negative for injury, rash, and discoloration, Neuro: Negative for headache, weakness, numbness, tingling, and seizure, Psych: Negative for depression, anxiety, suicide ideation, homicidal ideation, and hallucinations, Exam: 13:52 Constitutional: This is a well developed, well nourished patient who is awake, alert, rt and in no acute distress. Chest/axilla: Normal chest wall appearance and motion. Nontender with no deformity. No lesions are appreciated. Cardiovascular: Regular rate and rhythm with a normal S1 and S2. No gallops, murmurs, or rubs. Normal PMI, no JVD. No pulse deficits. Respiratory: Lungs have equal breath sounds bilaterally, clear to auscultation and percussion. No rales, rhonchi or wheezes noted. No increased work of breathing, no retractions or nasal flaring. Abdomen/GI: Soft, non-tender, with normal bowel sounds. No distension or tympany. No guarding or rebound. No evidence of tenderness throughout. Skin: Warm, dry with normal turgor. Normal color with no rashes, no lesions, and no evidence of cellulitis. MS/ Extremity: Pulses equal, no cyanosis. Neurovascular intact. Full, normal range of motion. Neuro: Awake and alert, GCS 15, oriented to person, place, time, and situation. Cranial nerves II-XII grossly intact. Motor strength 5/5 in all extremities. Sensory grossly intact. Cerebellar exam normal. Normal gait. Psych: Awake, alert, with orientation to person, place and time. Behavior, mood, and affect are within normal limits. 13:52 ECG was reviewed by the Attending Physician. Vital Signs: 13:01 BP 153 / 73; Pulse 65; Resp 16; Temp 98.1(O); Pulse Ox 100% on R/A; Weight 102.06 kg; tl4 Height 5 ft. 11 in. ; Pain 0/10; 13:01 Body Mass Index 31.38 (102.06 kg, 180.34 cm) tl4 13:01 Pain Scale: Adult tl4 MDM: 13:48 Patient medically screened. rt 15:15 Differential Diagnosis ESRD, hyperkalemia, metabolic acidosis, uremia. Data reviewed: rt vital signs, nurses notes, lab test result(s), EKG. Consideration of Admission/Observation Escalation of care including admission/observation considered. Patient is a hyperkalemia, no metabolic acidosis, BUN is elevated, however, patient has no signs or symptoms of uremia. At this time, there is no emergent indications for dialysis, patient structured to follow-up as an outpatient.. Care significantly affected by the following chronic conditions: Chronic Kidney Disease. Counseling: I had a detailed discussion with the patient and/or guardian regarding the historical points, exam findings, and any diagnostic results supporting the discharge/admit diagnosis, lab results, the need for outpatient follow up, to return to the emergency department if symptoms worsen or persist or if there are any questions or concerns that arise at home. 03/13 13:16 Order name: CBC with Diff; Complete Time: 14:47 rt 01/30 13:16 Order name: CMP; Complete Time: 14:47 rt 03/13 13:16 Order name: Magnesium; Complete Time: 14:47 rt 03/13 13:16 Order name: Phosphorus; Complete Time: 14:47 rt 03/13 13:16 Order name: EKG; Complete Time: 13:16 rt 03/13 13:16 Order name: EKG - Nurse/Tech; Complete Time: 13:57 rt EC:52 Rate is 64 beats/min. Rhythm is regular, Normal Sinus Rhythm with No ectopy, LVH rt present. Left axis deviation noted. CT interval is normal. QRS interval is normal. QT interval is normal. No Q waves. Administered Medications: No medications were administered Disposition Summary: 03/13/23 14:50 Discharge Ordered Notes: Location: Home rt Problem: an ongoing problem rt Symptoms: are unchanged rt Condition: Stable rt Diagnosis - End stage renal disease rt Followup: rt - With: Private Physician - When: 2 - 3 days - Reason: Discharge Instructions: - Discharge Summary Sheet rt - Dialysis rt Forms: - Medication Reconciliation Form rt - Thank You Letter rt - Antibiotic Education rt - Prescription Opioid Use rt - Patient Portal Instructions rt - Leadership Thank You Letter rt Signatures: Dispatcher [employer] EDTerry Morgan MD MD rt Zachary Lantigua 4
--- NOTE | 2023-03-13 14:51 | ER ---
Nurse's Notes [facility] Name: Zander Melvin Age: 62 yrs Sex: Male : 1960 Arrival Date: 03/13/2023 Time: 12:22 Bed DX1 Private MD: Diagnosis: End stage renal disease Presentation: 03/13 13:01 Chief complaint: Patient states: Pt states last dialysis was last . Pt unable tl4 to set up outpatient dialysis. Pt denies any complaints. Pt states he is here to see if he needs dialysis. Coronavirus screen: Vaccine status: Patient reports receiving the 2nd dose of the covid vaccine. Ebola Screen: No symptoms or risks identified at this time. Initial Sepsis Screen: Does the patient meet any 2 criteria? No. Patient's initial sepsis screen is negative. Does the patient have a suspected source of infection? No. Patient's initial sepsis screen is negative. Risk Assessment: Do you want to hurt yourself or someone else? Patient reports no desire to harm self or others. Onset of symptoms is unknown. 13:01 Method Of Arrival: Ambulatory tl4 13:01 Acuity: JAMES 4 tl4 13:36 Acuity: JAMES 3 jl7 Triage Assessment: 13:03 General: Appears in no apparent distress. Behavior is calm, cooperative. Pain: Denies tl4 pain. EENT: No deficits noted. No signs and/or symptoms were reported regarding the EENT system. Neuro: No deficits noted. Cardiovascular: No deficits noted. Denies chest pain, diaphoresis, lightheadedness, palpitations, syncope. Respiratory: No deficits noted. Denies cough, shortness of breath. GI: No deficits noted. No signs and/or symptoms were reported involving the gastrointestinal system. : No deficits noted. No signs and/or symptoms were reported regarding the genitourinary system. Derm: No deficits noted. No signs and/or symptoms reported regarding the dermatologic system. Historical: - Allergies: 13:03 No Known Allergies; tl4 - PMHx: 13:03 DIALYSIS MWF (I\T\D facial abscess); Hypertensive disorder; tl4 - PSHx: 13:03 I\T\D facial abscess; tl4 - Immunization history:: Adult Immunizations unknown. - Social history:: Smoking status: Patient/guardian denies using tobacco, Stopped _ months ago 1.5. - Family history:: not pertinent. Screenin:57 [facility] ED Fall Risk Assessment (Adult) History of falling in the last 3 months, jl7 including since admission No falls in past 3 months (0 pts) Confusion or Disorientation No (0 pts) Intoxicated or Sedated No (0 pts) Impaired Gait No (0 pts) Mobility Assist Device Used Yes (1 pt) Altered Elimination No (0 pt) Score/Fall Risk Level 0 - 2 = Low Risk Oriented to surroundings, Maintained a safe environment. Abuse screen: Denies threats or abuse. Denies injuries from another. Nutritional screening: No deficits noted. Tuberculosis screening: No symptoms or risk factors identified. Assessment: 13:58 Reassessment: EKG done, labs drawn, pt placed back in lobby and notified of wait time. jl7 Vital Signs: 13:01 BP 153 / 73; Pulse 65; Resp 16; Temp 98.1(O); Pulse Ox 100% on R/A; Weight 102.06 kg; tl4 Height 5 ft. 11 in. ; Pain 0/10; 13:01 Body Mass Index 31.38 (102.06 kg, 180.34 cm) tl4 13:01 Pain Scale: Adult tl4 ED Course: 12:22 Patient arrived in ED. im 12:34 Terry Moulton MD is Attending Physician. rt 13:03 Triage completed. tl4 13:04 Arm band placed on right wrist. tl4 13:57 Patient has correct armband on for positive identification. Provided Education on: [facility] tests. 13:57 Initial lab(s) drawn, by me, sent to lab. EKG done, by ED staff, reviewed by Terry Moulton MD. Inserted saline lock: 20 gauge in left antecubital area, using aseptic technique. Blood collected. 15:06 No provider procedures requiring assistance completed. IV discontinued, intact, ap3 bleeding controlled, No redness/swelling at site. Pressure dressing applied. Administered Medications: No medications were administered Medication: 15:06 VIS not applicable for this client. ap3 Outcome: 14:50 Discharge ordered by . rt 15:06 Discharged to home ambulatory, ap3 15:06 Condition: good 15:06 Discharge instructions given to patient, Instructed on discharge instructions, follow up and referral plans. Demonstrated understanding of instructions, follow-up care, 15:06 Patient left the ED. ap3 Signatures: Justine Hamilton RN RN jl7 Vonda Connelly RN RN ap3 Terry Moulton MD MD rt Mendoza, Itzel im Logdahl, Toni 4
[2023-03-13 23:16] VITALS: BP 153/73; TEMP 98.1; O2SAT 100
== END ==
LOC: ER 12:22
DX: I12.0 Hypertensive chronic kidney disease with stage 5 chronic kidney disease or end stage renal disease (principal); Z99.2 Dependence on renal dialysis
CPT/HCPCS: 36415; 80053; 83735; 84100; 85025; 93005

== ENCOUNTER → 2023-03-15 | Emergency (ER) | payer OTHER, SELFPAY ==
[2023-03-15 12:56] LABS: Absolute Lymphocytes (CBC) 1.4 K/uL (0.7-4.9); Hematocrit 29.3 % (39.6-49.0); Lymphocytes % 36.2 % (15.3-44.8); MCV 84.5 fL (80-100); MPV 8.1 fL (7.6-11.3); Platelets 160 thou/uL (152-406); RBC Red Blood Cell Count 3.47 M/uL (4.33-5.43)
[2023-03-15 13:18] LABS: Potassium 4.6 mEq/L (3.5-5.1)
--- NOTE | 2023-03-15 13:35 | RAD REPORT ---
EXAM DESCRIPTION: RADChest Single View03/15/2023 1:14 pm CLINICAL HISTORY: dizziness COMPARISON: Chest Single View dated 03/07/2023; Chest Single View dated 03/05/2023; Chest Single View dated 03/01/2023; Chest Single View dated 02/20/2023 TECHNIQUE: Portable AP view of the chest. FINDINGS: Right subclavian dialysis catheter unchanged in position. The lungs are clear, apart from stable mild central interstitial prominence. No pneumothorax or effusion. The cardiomediastinal cont ours are unremarkable. IMPRESSION: Stable findings as above.
--- NOTE | 2023-03-15 14:17 | EDPHYS ---
Physician Documentation [facility] Name: Zander Melvin Age: 62 yrs Sex: Male : 1960 Arrival Date: 03/15/2023 Time: 12:02 Bed 14 Private MD: ED Physician Christ Lu HPI: 03/15 14:09 This 62 yrs old Black Male presents to ER via Ambulatory with complaints of Dizziness. ms3 14:09 62-year-old male with past medical history of hypertension, dialysis presents to the [facility] [place] for dizziness that began yesterday. Patient states the room is spinning around him. Patient denies pain, chest pain, shortness of breath, fevers, chills, headache, numbness, weakness. Patient denies alleviating or inciting factors. Historical: - PMHx: 12:11 Hypertensive disorder; DIALYSIS MWF (I\T\D facial abscess); mb9 - PSHx: 12:11 I\T\D facial abscess; mb9 - Immunization history:: Adult Immunizations unknown, Client reports receiving the 2nd dose of the Covid vaccine. - Social history:: Smoking status: Patient/guardian denies using tobacco, Stopped _ months ago 1. ROS: 14:09 Constitutional: Negative for fever, and chills. Neck: Negative for injury, pain, and ms3 swelling, Cardiovascular: Negative for chest pain, and palpitations. Respiratory: Negative for shortness of breath, cough, wheezing, and pleuritic chest pain, Abdomen/GI: Negative for abdominal pain, nausea, vomiting, diarrhea, and constipation, MS/Extremity: Negative for injury and deformity, Skin: Negative for injury, rash, and discoloration, 14:09 Neuro: Positive for dizziness, 14:09 All other systems are negative, Exam: 12:46 ECG was reviewed by the Attending Physician. ms3 14:09 Constitutional: This is a well developed, well nourished patient who is awake, alert, ms3 and in no acute distress. Head/Face: Normocephalic, atraumatic. Neck: Trachea midline, no cervical lymphadenopathy. Supple, full range of motion without nuchal rigidity, or vertebral point tenderness. No Meningismus. Chest/axilla: Normal chest wall appearance and motion. Nontender with no deformity. Cardiovascular: Regular rate and rhythm with a normal S1 and S2. No gallops, murmurs, or rubs. Normal PMI, no JVD. No pulse deficits. Respiratory: Lungs have equal breath sounds bilaterally, clear to auscultation and percussion. No rales, rhonchi or wheezes noted. No increased work of breathing, no retractions or nasal flaring. Abdomen/GI: Soft, non-tender, with normal bowel sounds. No distension or tympany. No guarding or rebound. No evidence of tenderness throughout. Skin: Warm, dry with normal turgor. Normal color with no rashes, no lesions, and no evidence of cellulitis. 14:09 Neuro: Orientation: is normal, to person, place, time \T\ situation. Mentation: is normal, Memory: is normal, Cranial nerves: CN I not tested, CN II- XII are normal as tested, Cerebellar function: normal finger to nose testing, Motor: is normal, Sensation: is normal, no obvious gross deficits, Vital Signs: 12:10 BP 182 / 83; Pulse 67; Resp 18; Temp 97.6(O); Pulse Ox 100% ; db 13:10 BP 159 / 84; Pulse 61; Resp 18; Pulse Ox 100% on R/A; mb9 14:22 BP 170 / 88; Pulse 62; Resp 18; Pulse Ox 100% on R/A; mb9 MDM: 12:45 Patient medically screened. ms3 14:09 Differential diagnosis: cardiac arrhythmia, generalized weakness, idiopathic dizziness. ms3 14:17 Data reviewed: vital signs, nurses notes, lab test result(s), EKG, radiologic studies, ms3 and as a result, I will discharge patient. I considered the following discharge prescriptions or medication management in the emergency department. Independent interpretation of the following test(s) in the Emergency Department EKG: See my EKG interpretation above X-Ray: My interpretation is CXR image reviewed by me does not reveal significant pulmonary edema. Care significantly affected by the following Social Determinants of Health: Poor access to healthcare and/or lack of insurance. Counseling: I had a detailed discussion with the patient and/or guardian regarding the historical points, exam findings, and any diagnostic results supporting the discharge/admit diagnosis, lab results, radiology results, the need for outpatient follow up, to return to the emergency department if symptoms worsen or persist or if there are any questions or concerns that arise at home. Special discussion: I discussed with the patient/guardian in detail that at this point there is no indication for admission to the hospital. It is understood, however, that if the symptoms persist or worsen the patient needs to return immediately for re-evaluation. ED course: Discussed labs, EKG, chest x-ray with patient. Patient states he wishes to be discharged at this time. Patient to follow-up with nephrology and primary care in the next 2 to 3 days. All questions were answered. Return precautions discussed include worsening symptoms, or any other concerns. On reevaluation patient symptoms improved, patient is alert and orient x 4, no apparent distress, nontoxic-appearing, speaking full sentences.. 03/15 12:45 Order name: Basic Metabolic Panel; Complete Time: 13:33 ms3 03/15 12:45 Order name: CBC with Diff; Complete Time: 13:33 ms3 03/15 12:45 Order name: XRAY Chest (1 view); Complete Time: 14:11 ms3 03/15 12:45 Order name: EKG; Complete Time: 12:46 ms3 03/15 12:45 Order name: Cardiac monitoring; Complete Time: 12:46 ms3 03/15 12:45 Order name: EKG - Nurse/Tech; Complete Time: 12:46 ms3 03/15 12:45 Order name: IV Saline Lock; Complete Time: 12:46 ms3 03/15 12:45 Order name: Labs collected and sent; Complete Time: 12:46 ms3 03/15 12:45 Order name: O2 Per Protocol; Complete Time: 12:46 ms3 03/15 12:45 Order name: O2 Sat Monitoring; Complete Time: 12:46 ms3 EC:46 Rate is 58 beats/min. Rhythm is regular. Left axis deviation noted. NH interval is ms3 normal. Clinical impression: Sinus bradycardia. Interpreted by me. Reviewed by me. Administered Medications: No medications were administered Disposition Summary: 03/15/23 14:17 Discharge Ordered Notes: Location: Home ms3 Condition: Stable ms3 Diagnosis - End stage renal disease ms3 - Essential (primary) hypertension ms3 - Diziness ms3 Followup: ms3 - With: Shaun Garcia, DO - When: 2 - 3 days - Reason: Recheck today's complaints Followup: ms3 - With: Woo, Brigani, MD - When: 1 - 2 days - Reason: Recheck today's complaints Discharge Instructions: - Discharge Summary Sheet ms3 - Hypertension, Adult ms3 - End-Stage Kidney Disease ms3 - DASH Eating Plan ms3 Forms: - Medication Reconciliation Form ms3 - Thank You Letter ms3 - Antibiotic Education ms3 - Prescription Opioid Use ms3 - Patient Portal Instructions ms3 - Leadership Thank You Letter ms3 Signatures: Dispatcher [employer] EDChrist Pérez DO DO ms3 Kallie Dobbs, RN RN db Cheryl Miller RN RN mb9
--- NOTE | 2023-03-15 14:17 | ER ---
Nurse's Notes [facility] Name: Zander Melvin Age: 62 yrs Sex: Male : 1960 Arrival Date: 03/15/2023 Time: 12:02 Bed 14 Private MD: Diagnosis: End stage renal disease;Essential (primary) hypertension;Diziness Presentation: 03/15 12:10 Chief complaint: Patient states: DIZZINESS STARTED YESTERDAY. STATES MISSED DIALYSIS db YESTERDAY DUE TO NOT HAVING RIDE. RECENTLY PLACED ON DIALYSIS 6 WEEKS AGO. 12:10 Method Of Arrival: Ambulatory db 12:10 Acuity: JAMES 2 db 12:12 Coronavirus screen: Vaccine status: Patient reports receiving the 2nd dose of the covid mb9 vaccine. Ebola Screen: No symptoms or risks identified at this time. Initial Sepsis Screen: Does the patient meet any 2 criteria? No. Patient's initial sepsis screen is negative. Does the patient have a suspected source of infection? No. Patient's initial sepsis screen is negative. Risk Assessment: Do you want to hurt yourself or someone else? Patient reports no desire to harm self or others. Onset of symptoms was March 15, 2023. Triage Assessment: 12:10 General: Appears in no apparent distress. comfortable, Behavior is calm, cooperative. db Pain: Denies pain. Neuro: Level of Consciousness is awake, alert, obeys commands, Oriented to person, place, time, situation, Speech is normal, Facial symmetry appears normal, Reports dizziness. Respiratory: Airway is patent Respiratory effort is even, unlabored, Respiratory pattern is regular, symmetrical. Historical: - PMHx: 12:11 Hypertensive disorder; DIALYSIS MWF (I\T\D facial abscess); mb9 - PSHx: 12:11 I\T\D facial abscess; mb9 - Immunization history:: Adult Immunizations unknown, Client reports receiving the 2nd dose of the Covid vaccine. - Social history:: Smoking status: Patient/guardian denies using tobacco, Stopped _ months ago 1. Screenin:11 [facility] ED Fall Risk Assessment (Adult) History of falling in the last 3 months, mb9 including since admission No falls in past 3 months (0 pts) Confusion or Disorientation No (0 pts) Intoxicated or Sedated No (0 pts) Impaired Gait No (0 pts) Mobility Assist Device Used No (0 pt) Altered Elimination No (0 pt) Score/Fall Risk Level 0 - 2 = Low Risk Oriented to surroundings, Maintained a safe environment, Educated pt \T\ family on fall prevention, incl call for assistance when getting out of bed. Abuse screen: Denies threats or abuse. Nutritional screening: No deficits noted. Tuberculosis screening: No symptoms or risk factors identified. Assessment: 12:24 General: Appears in no apparent distress. Behavior is calm, cooperative. Pain: Denies mb9 pain. Neuro: Read Agitation-Sedation Scale (RASS): 0 - Alert and Calm Level of Consciousness is awake, alert, obeys commands, Oriented to person, place, time, situation, Appropriate for age Reports dizziness. Cardiovascular: Heart tones S1 S2 present Patient's skin is warm and dry. Respiratory: Airway is patent Respiratory effort is even, unlabored, Respiratory pattern is regular, symmetrical. GI: No signs and/or symptoms were reported involving the gastrointestinal system. : No signs and/or symptoms were reported regarding the genitourinary system. EENT: No signs and/or symptoms were reported regarding the EENT system. Derm: Skin is pink, warm \T\ dry. Musculoskeletal: Range of motion: intact in all extremities. 13:43 Reassessment: No changes from previously documented assessment. Patient and/or family mb9 updated on plan of care and expected duration. Pain level reassessed. Patient is alert, oriented x 3, equal unlabored respirations, skin warm/dry/pink. 14:15 Reassessment: No changes from previously documented assessment. Patient and/or family mb9 updated on plan of care and expected duration. Pain level reassessed. Patient is alert, oriented x 3, equal unlabored respirations, skin warm/dry/pink. Vital Signs: 12:10 BP 182 / 83; Pulse 67; Resp 18; Temp 97.6(O); Pulse Ox 100% ; db 13:10 BP 159 / 84; Pulse 61; Resp 18; Pulse Ox 100% on R/A; mb9 14:22 BP 170 / 88; Pulse 62; Resp 18; Pulse Ox 100% on R/A; mb9 ED Course: 12:03 Patient arrived in ED. ra3 12:11 Cheryl Miller RN is Primary Nurse. mb9 12:11 Christ Lu DO is Attending Physician. ms3 12:11 Arm band placed on. mb9 12:17 Triage completed. db 12:17 Patient placed in an exam room. db 12:24 Placed in gown. Bed in low position. Call light in reach. Side rails up X 1. Client mb9 placed on continuous cardiac and pulse oximetry monitoring. NIBP monitoring applied. list of first job ideas on. 12:33 EKG done, by ED staff, reviewed by Christ Lu DO. Inserted saline lock: 20 gauge in mb9 right forearm, using aseptic technique. 12:46 Basic Metabolic Panel Sent. mb9 12:46 CBC with Diff Sent. mb9 13:16 XRAY Chest (1 view) In Process Unspecified. EDMS 14:16 Shaun Garcia DO is Referral Physician. ms3 14:16 Diana Berkowitz MD is Referral Physician. ms3 14:16 No provider procedures requiring assistance completed. IV discontinued, intact, mb9 bleeding controlled, No redness/swelling at site. Pressure dressing applied. Administered Medications: No medications were administered Medication: 12:11 VIS not applicable for this client. mb9 Outcome: 14:17 Discharge ordered by . ms3 14:22 Discharged to home ambulatory, mb9 14:22 Condition: stable 14:22 Discharge instructions given to patient, Instructed on discharge instructions, follow up and referral plans. Demonstrated understanding of instructions, follow-up care, 14:22 Patient left the ED. mb9 Signatures: Dispatcher [employer] EDMS Christ Lu DO DO ms3 Kallie Dobbs RN RN Cheryl March RN RN mb9 Miranda Grimes ra3 Corrections: (The following items were deleted from the chart) 12:12 12:12 Method Of Arrival: EMS: [facility] mb9 mb9 13:10 12:46 BP 174 / 90; Pulse 61bpm; Resp 18bpm; Pulse Ox 100% RA; mb9 mb9
[2023-03-15 14:43] VITALS: TEMP 97.6; O2SAT 100
[2023-03-15 15:02] VITALS: BP 170/88
--- NOTE | 2023-03-19 15:13 | EKG ---
Test Date: 2023-03-15 Test Time: 12:32:34 Resident Care Spec: MB MEASUREMENT RESULTS: Intervals: Rate: 58 VT: 192 QRSD: 132 QT: 436 QTc: 428 [place]: P: 63 VT: 192 QRS: -49 T: 97 INTERPRETIVE STATEMENTS: Sinus bradycardia Left axis deviation Left ventricular hypertrophy with QRS widening and repolarization abnormality Abnormal ECG Compared to ECG 03/13/2023 13:43:19 Sinus rhythm no longer present Electronically Signed On 03-19-23 15:03:32 RN ED by Jules Riddle
== END ==
LOC: ER 12:02
DX: R42 Dizziness and giddiness (principal); I12.0 Hypertensive chronic kidney disease with stage 5 chronic kidney disease or end stage renal disease; N18.6 End stage renal disease; Z99.2 Dependence on renal dialysis
CPT/HCPCS: 36415; 71045; 80048; 85025; 93005

== ENCOUNTER → 2023-03-20 | Emergency (ER) | payer SELFPAY ==
[2023-03-20 09:54] LABS: Absolute Lymphocytes (CBC) 1.2 K/uL (0.7-4.9); Hematocrit 26.8 % (39.6-49.0); MCV 83.8 fL (80-100); MPV 7.4 fL (7.6-11.3); Platelets 147 thou/uL (152-406)
[2023-03-20 10:20] LABS: Albumin 2.7 g/dL (3.4-5.0); Bilirubin Total 0.3 mg/dL (0.2-1.0); Potassium 4.8 mEq/L (3.5-5.1); Protein, Total 6.3 g/dL (6.4-8.2)
--- NOTE | 2023-03-20 10:40 | EDPHYS ---
Physician Documentation [facility] Name: Zander Melvin Age: 62 yrs Sex: Male : 1960 Arrival Date: 03/20/2023 Time: 09:09 Bed 16 Private MD: ED Physician Gerald Juarez HPI: 03/20 12:27 This 62 yrs old Black Male presents to ER via Ambulatory with complaints of Possible kdr need forDialysis. 12:27 The patient routinely presents to the ED for analysis of the need for dialysis. Patient kdr does not attend to a dialysis center on a regular basis. Typically his labs were drawn if warranted the patient is admitted for dialysis. Patient denies any current symptoms. He simply is presenting to have his blood work checked to make sure he does not need or is not have an impending need for dialysis. Patient is totally stable in the ED and not acutely ill or in any way. Historical: - Allergies: 09:16 No Known Allergies; bp - PMHx: 09:16 Hypertensive disorder; DIALYSIS MWF (DIALYSIS MWF); bp - PSHx: 09:16 I\T\D facial abscess; bp - Immunization history:: Adult Immunizations up to date. - Social history:: Smoking status: unknown. ROS: 12:27 Constitutional: Negative for fever, chills, and weight loss, Eyes: Negative for injury, kdr pain, redness, and discharge, ENT: Negative for injury, pain, and discharge, Neck: Negative for injury, pain, and swelling, Cardiovascular: Negative for chest pain, palpitations, and edema, Respiratory: Negative for shortness of breath, cough, wheezing, and pleuritic chest pain, Abdomen/GI: Negative for abdominal pain, nausea, vomiting, diarrhea, and constipation, Back: Negative for injury and pain, : Negative for injury, bleeding, discharge, and swelling, MS/Extremity: Negative for injury and deformity, Skin: Negative for injury, rash, and discoloration, Neuro: Negative for headache, weakness, numbness, tingling, and seizure activity. Psych: Negative for depression, anxiety, suicide ideation, homicidal ideation, and hallucinations, Allergy/Immunology: Negative for hives, rash, and allergies, Endocrine: Negative for neck swelling, polydipsia, polyuria, polyphagia, and marked weight changes, Hematologic/Lymphatic: Negative for swollen nodes, abnormal bleeding, and unusual bruising, Exam: 12:27 Constitutional: This is a well developed, well nourished patient who is awake, alert, kdr and in no acute distress. Head/Face: Normocephalic, atraumatic. Eyes: Pupils equal round and reactive to light, extra-ocular motions intact. Lids and lashes normal. Conjunctiva and sclera are non-icteric and not injected. Cornea within normal limits. Periorbital areas with no swelling, redness, or edema. Neck: Trachea midline, no thyromegaly or masses palpated, and no cervical lymphadenopathy. Supple, full range of motion without nuchal rigidity, or vertebral point tenderness. No Meningismus. Chest/axilla: Normal chest wall appearance and motion. Nontender with no deformity. No lesions are appreciated. Cardiovascular: Regular rate and rhythm with a normal S1 and S2. No gallops, murmurs, or rubs. Normal PMI, no JVD. No pulse deficits. Respiratory: Lungs have equal breath sounds bilaterally, clear to auscultation and percussion. No rales, rhonchi or wheezes noted. No increased work of breathing, no retractions or nasal flaring. Abdomen/GI: Soft, non-tender, with normal bowel sounds. No distension or tympany. No guarding or rebound. No evidence of tenderness throughout. Back: No spinal tenderness. No costovertebral tenderness. Full range of motion. Skin: Warm, dry with normal turgor. Normal color with no rashes, no lesions, and no evidence of cellulitis. MS/ Extremity: Pulses equal, no cyanosis. Neurovascular intact. Full, normal range of motion. Neuro: Awake and alert, GCS 15, oriented to person, place, time, and situation. Cranial nerves II-XII grossly intact. Motor strength 5/5 in all extremities. Sensory grossly intact. Cerebellar exam normal. Normal gait. Psych: Awake, alert, with orientation to person, place and time. Behavior, mood, and affect are within normal limits. Vital Signs: 09:20 BP 187 / 86; Pulse 54; Resp 17; Temp 97.4; Pulse Ox 98% on R/A; Weight 102.06 kg; ll1 Height 5 ft. 11 in. ; Pain 0/10; 11:22 BP 189 / 95; Pulse 48; Resp 16; Pulse Ox 100% ; bp 09:20 Body Mass Index 31.38 (102.06 kg, 180.34 cm) ll1 09:20 Pain Scale: Adult ll1 MDM: 10:39 Patient medically screened. kdr 12:27 Data reviewed: vital signs, nurses notes, lab test result(s). kdr 03/20 09:28 Order name: CBC with Diff; Complete Time: 10:22 kdr 03/20 09:28 Order name: CMP; Complete Time: : kdr Administered Medications: No medications were administered Disposition Summary: 03/20/23 10:39 Discharge Ordered Notes: Location: Home kdr Problem: an ongoing problem kdr Symptoms: are unchanged kdr Condition: Stable kdr Diagnosis - End stage renal disease - stable kdr Followup: kdr - With: Private Physician - When: 1 - 2 days - Reason: If symptoms return, Further diagnostic work-up, Recheck today's complaints, Continuance of care, Re-evaluation by your physician Discharge Instructions: - Discharge Summary Sheet kdr - Dialysis kdr - End-Stage Kidney Disease kdr Forms: - Medication Reconciliation Form kdr - Thank You Letter kdr - Antibiotic Education kdr - Prescription Opioid Use kdr - Patient Portal Instructions kdr - Leadership Thank You Letter kdr Signatures: Dispatcher [employer] EDGerald Beltran MD MD kdr Griffin Balderrama RN RN bp Corrections: (The following items were deleted from the chart) 09:17 09:16 PMHx: DIALYSIS MWF (I\T\D facial abscess); bp bp
--- NOTE | 2023-03-20 10:40 | ER ---
Nurse's Notes [facility] Name: Zander Melvin Age: 62 yrs Sex: Male : 1960 Arrival Date: 03/20/2023 Time: 09:09 Bed 16 Private MD: Diagnosis: End stage renal disease-stable Presentation: 03/20 09:20 Chief complaint: Patient states: Last Dialysis 03/08. No pain or fever. Coronavirus ll1 screen: Client denies travel out of the [place] in the last 14 days. At this time, the client does not indicate any symptoms associated with coronavirus-19. Ebola Screen: Patient denies travel to an Ebola-affected area in the 21 days before illness onset. Initial Sepsis Screen: Does the patient meet any 2 criteria? No. Patient's initial sepsis screen is negative. Does the patient have a suspected source of infection? No. Patient's initial sepsis screen is negative. Risk Assessment: Do you want to hurt yourself or someone else? Patient reports no desire to harm self or others. Onset of symptoms was March 20, 2023. 09:20 Method Of Arrival: Ambulatory ll1 09:20 Acuity: JAMES 3 ll1 Triage Assessment: 09:16 General: Appears in no apparent distress. Behavior is calm, cooperative, appropriate bp for age. Pain: Denies pain. Historical: - Allergies: 09:16 No Known Allergies; bp - PMHx: 09:16 Hypertensive disorder; DIALYSIS MWF (DIALYSIS MWF); bp - PSHx: 09:16 I\T\D facial abscess; bp - Immunization history:: Adult Immunizations up to date. - Social history:: Smoking status: unknown. Screenin:23 [facility] ED Fall Risk Assessment (Adult) History of falling in the last 3 months, bp including since admission No falls in past 3 months (0 pts). Abuse screen: Denies threats or abuse. Denies injuries from another. Nutritional screening: No deficits noted. Tuberculosis screening: No symptoms or risk factors identified. Assessment: 09:20 General: SEE TRIAGE NOTE. bp 11:23 Reassessment: PT DC HOME AMBULATORY. bp Vital Signs: 09:20 BP 187 / 86; Pulse 54; Resp 17; Temp 97.4; Pulse Ox 98% on R/A; Weight 102.06 kg; ll1 Height 5 ft. 11 in. ; Pain 0/10; 11:22 BP 189 / 95; Pulse 48; Resp 16; Pulse Ox 100% ; bp 09:20 Body Mass Index 31.38 (102.06 kg, 180.34 cm) ll1 09:20 Pain Scale: Adult ll1 ED Course: 09:10 Patient arrived in ED. rg4 09:13 Griffin Balderrama, RN is Primary Nurse. bp 09:14 Gerald Juarez MD is Attending Physician. kdr 09:16 Arm band placed on. bp 09:24 Triage completed. ll1 09:46 Inserted saline lock: 22 gauge in left antecubital area, using aseptic technique. Blood bp collected. 11:23 Patient has correct armband on for positive identification. bp 11:23 No provider procedures requiring assistance completed. IV discontinued, intact, bp bleeding controlled, No redness/swelling at site. Pressure dressing applied. Administered Medications: No medications were administered Medication: 11:23 VIS not applicable for this client. bp Outcome: 10:39 Discharge ordered by . kdr 11:23 Discharged to home ambulatory, bp 11:23 Condition: stable 11:23 Discharge instructions given to patient, Instructed on discharge instructions, follow up and referral plans. Demonstrated understanding of instructions, follow-up care, 11:24 Patient left the ED. bp Signatures: Gerald Juarez MD MD kdr Garcia, Rubi rg4 Griffin Balderrama, RN RN bp Susy Norton RN RN ll1 Corrections: (The following items were deleted from the chart) 09:17 09:16 PMHx: DIALYSIS MWF (I\T\D facial abscess); bp bp
[2023-03-21 12:59] VITALS: BP 189/95; TEMP 97.4; O2SAT 100
== END ==
LOC: ER 09:09
DX: I12.0 Hypertensive chronic kidney disease with stage 5 chronic kidney disease or end stage renal disease (principal); Z99.2 Dependence on renal dialysis
CPT/HCPCS: 36415; 80053; 85025

== ENCOUNTER → 2023-04-18 | Emergency (ER) | payer SELFPAY ==
[~2023-04-18] MED LIST: FOLIC ACID 1 MG TABLET ONE; HYDRALAZINE HCL 20 MG/ML VIAL ONE; NA CHLORIDE 0.9% 1,000 ML ONE; THIAMINE HCL 100 MG TABLET ONE
--- NOTE | 2023-04-18 11:40 | RAD REPORT ---
EXAM DESCRIPTION: RAD - Chest Pa And Lat (2 Views) - 04/18/2023 11:33 am CLINICAL HISTORY: ESRD COMPARISON: Chest Single View dated 03/15/2023; Chest Single View dated 03/07/2023; Chest Single View d ated 03/05/2023; Chest Single View dated 03/01/2023 TECHNIQUE: PA and lateral views of the chest were obtained. FINDINGS: The lungs are clear. Elevation of the left hemidiaphragm again seen. Right subclavian dial ysis catheter unchanged in position. Heart size is normal and central vasculature is within normal li mits. No pleural effusion or pneumothorax seen. No acute bony finding noted. IMPRESSION: No acute cardiopulmonary process.
--- NOTE | 2023-04-18 12:36 | ER ---
Nurse's Notes [facility] Name: Zander Melvin Age: 62 yrs Sex: Male : 1960 Arrival Date: 04/18/2023 Time: 11:04 Bed IW5 Private MD: Diagnosis: Encounter for change or removal of nonsurgical wound dressing Presentation: 04/17 11:39 Chief complaint: Patient states: I NEED MY DRESSING CHANGED AND I MIGHT NEED DIALYSIS. bp Coronavirus screen: At this time, the client does not indicate any symptoms associated with coronavirus-19. Ebola Screen: No symptoms or risks identified at this time. Initial Sepsis Screen: Does the patient meet any 2 criteria? No. Patient's initial sepsis screen is negative. Does the patient have a suspected source of infection? No. Patient's initial sepsis screen is negative. Risk Assessment: Do you want to hurt yourself or someone else? Patient reports no desire to harm self or others. Note LAST DIALYSIS >2 WK. Onset of symptoms is unknown. 11:39 Method Of Arrival: Ambulatory bp 11:39 Acuity: JAMES 3 bp Triage Assessment: 11:40 General: Appears in no apparent distress. Behavior is calm, cooperative, appropriate bp for age. Pain: Denies pain. Historical: - Allergies: 11:40 No Known Allergies; bp - PMHx: 11:40 DIALYSIS MWF (DIALYSIS MWF); Hypertensive disorder; bp - PSHx: 11:40 I\T\D facial abscess; bp - Immunization history:: Adult Immunizations up to date. - Social history:: Smoking status: Patient denies any tobacco usage or history of. - Family history:: not pertinent. - Hospitalizations: : No recent hospitalization is reported. Screenin:45 [facility] ED Fall Risk Assessment (Adult) History of falling in the last 3 months, bp including since admission No falls in past 3 months (0 pts). Abuse screen: Denies threats or abuse. Denies injuries from another. Nutritional screening: No deficits noted. Tuberculosis screening: No symptoms or risk factors identified. Assessment: 12:45 Reassessment: DC HOME AMBULATORY. bp Vital Signs: 11:39 BP 193 / 95; Pulse 59; Resp 16; Temp 98; Pulse Ox 99% ; bp ED Course: 11:07 Patient arrived in ED. mg5 11:09 Vernon Philippe MD is Attending Physician. rn 11:35 XRAY Chest Pa And Lat (2 Views) In Process Unspecified. EDMS 11:39 Arm band placed on. bp 11:40 Triage completed. bp 12:45 Griffin Balderrama, RN is Primary Nurse. bp 12:45 Patient has correct armband on for positive identification. bp 12:45 No provider procedures requiring assistance completed. Patient did not have IV access bp during this emergency room visit. Dressings: Tegaderm X 1; chest. Administered Medications: No medications were administered Medication: 12:45 VIS not applicable for this client. bp Outcome: 12:36 Discharge ordered by . rn 12:45 Discharged to home ambulatory, bp 12:45 Condition: stable 12:45 Discharge instructions given to patient, Instructed on discharge instructions, follow up and referral plans. Demonstrated understanding of instructions, follow-up care, 12:47 Patient left the ED. bp Signatures: Dispatcher [employer] EDMS Vernon Philippe MD MD rn Peltier, Brian, VALERIA RN Mylene Gallardo mg5 Corrections: (The following items were deleted from the chart) 11:41 11:39 Pulse 59bpm; Resp 16bpm; Pulse Ox 99%; Temp 98F; bp bp
--- NOTE | 2023-04-18 12:36 | EDPHYS ---
Physician Documentation [facility] Name: Zander Melvin Age: 62 yrs Sex: Male : 1960 Arrival Date: 04/18/2023 Time: 11:04 Bed IW5 Private MD: ED Physician Vernon Philippe HPI: 04/17 12:33 This 62 yrs old Black Male presents to ER via Ambulatory with complaints of needs rn dressing changed. 12:33 Patient reports here for mainly dressing change. Had gotten his dressing dirty and rn concerned for cleanliness. Patient denies shortness of breath. Does not feel like he needs dialysis today. No fever or chills. No chest pain.. Onset: The symptoms/episode began/occurred at an unknown time. Severity of symptoms: At their worst the symptoms were mild in the emergency department the symptoms are unchanged. The patient has not experienced similar symptoms in the past. Historical: - Allergies: 11:40 No Known Allergies; bp - PMHx: 11:40 DIALYSIS MWF (DIALYSIS MWF); Hypertensive disorder; bp - PSHx: 11:40 I\T\D facial abscess; bp - Immunization history:: Adult Immunizations up to date. - Social history:: Smoking status: Patient denies any tobacco usage or history of. - Family history:: not pertinent. - Hospitalizations: : No recent hospitalization is reported. ROS: 12:33 Constitutional: Negative for fever, chills, and weight loss, Cardiovascular: Negative rn for chest pain, palpitations, and edema, Respiratory: Negative for shortness of breath, cough, wheezing, and pleuritic chest pain, Abdomen/GI: Negative for abdominal pain, nausea, vomiting, diarrhea, and constipation, Neuro: Negative for headache, weakness, numbness, tingling, and seizure, Exam: 12:33 Constitutional: This is a well developed, well nourished patient who is awake, alert, rn and in no acute distress. Chest/axilla: Right chest wall tunneled dialysis catheter in place, Tegaderm is not adherent to skin and appears dirty. No signs of infection or drainage from around catheter Cardiovascular: Regular rate and rhythm. No pulse deficits. Respiratory: No increased work of breathing, no retractions or nasal flaring. Vital Signs: 11:39 BP 193 / 95; Pulse 59; Resp 16; Temp 98; Pulse Ox 99% ; bp MDM: 11:09 Patient medically screened. rn 12:33 Differential Diagnosis Encounter for dressing change. Data reviewed: vital signs, rn nurses notes, and as a result, I will discharge patient. Counseling: I had a detailed discussion with the patient and/or guardian regarding the historical points, exam findings, and any diagnostic results supporting the discharge/admit diagnosis, the need for outpatient follow up, to return to the emergency department if symptoms worsen or persist or if there are any questions or concerns that arise at home. Special discussion: I discussed with the patient/guardian in detail that at this point there is no indication for admission to the hospital. It is understood, however, that if the symptoms persist or worsen the patient needs to return immediately for re-evaluation. ED course: Patient denies shortness of breath or reason to need emergent dialysis. States had dialysis recently. Here mainly for dressing change. Will change dressing and discharged home with return precautions. Chest x-ray obtained and no acute findings or findings of pulmonary edema.. 04/17 11:17 Order name: XRAY Chest Pa And Lat (2 Views); Complete Time: 11:47 rn 04/17 11:55 Order name: Dressing - Wound; Complete Time: 12:45 rn Administered Medications: No medications were administered Disposition Summary: 04/18/23 12:36 Discharge Ordered Notes: Location: Home rn Problem: new rn Symptoms: have improved rn Condition: Stable rn Diagnosis - Encounter for change or removal of nonsurgical wound dressing rn Followup: rn - With: Private Physician - When: As needed - Reason: Recheck today's complaints, Re-evaluation by your physician Discharge Instructions: - Discharge Summary Sheet rn - [employer] broadcast music librarian Forms: - Medication Reconciliation Form rn - Thank You Letter rn - Antibiotic family law attorney - Prescription Opioid Use rn - Patient Portal Instructions rn - Leadership Thank You Letter rn Signatures: Dispatcher [employer] EDMS Vernon Philippe MD MD rn Peltier, Brian, RN RN bp Corrections: (The following items were deleted from the chart) 11:55 11:16 EKG - Nurse/Tech ordered. rn rn 11:59 11:16 CBC+H.LAB.BRZ ordered. EDMS EDMS :59 11:16 BASIC METABOLIC PANEL+C.LAB.BRZ ordered. EDMS EDMS :59 11:16 PROBNP+C.LAB.BRZ ordered. EDMS EDMS 12:45 11:16 IV Saline Lock ordered. rn bp
[2023-04-18 12:52] VITALS: BP 193/95; TEMP 98; O2SAT 99
== END ==
LOC: ER 11:04
DX: Z48.00 Encounter for change or removal of nonsurgical wound dressing (principal)
CPT/HCPCS: 71046; 99283; J0360; J7030

== ENCOUNTER 2023-05-14 14:09 | Emergency (ER) | payer OTHER ==
--- OUTSIDE RECORDS SUMMARY | 2023-05-14 14:17 | XMS REPORT | Continuity of Care Document ---
Author Name Unknown Address [address] [place] [address] [facility] Address [address] [place] [address] Care Team Providers Care Ironmolder Name Role Phone PCP, PATIENT DOES NOT HAVE A Primary Care Physic carlita Unavailable RASHEEDA RIOJAS Attending Clinician Unavailable Rasheeda Riojas MD Attending Clinician [phone] Doctor Unassigned, Filley Attending Clinician U lucho Lopez MD, Yohannes Luna Attending Clinician + [phone] MOE VALLEJO Attending Clinician Unavailable Farshad ENCISO, Anitra Attending Clinician + [phone] Moe Vallejo MD Attending Clinician [phone] CADEN HANNA Attending Clinician Unavailable CHELA TREVIÑO Attending Clinician Unavailable PHILLIP PATEL Attending Clinician Unavailable CARLOS GUZMAN Attending Clinician Unavailab CARLOS Mckeon Attending Clinician Unavailab Alyssa Paris LVN Attending Clinician [phone] Josiah Combs MD Attending Clinician [phone] Juan F Boyd MD Attending Clinician [phone] Chela Treviño MD Attending Clinician [phone] EMIL RAMACHANDRAN Attending Clinician Unavailable Emil Ramachandran MD Attending Clinician [phone] Cheryl Russell RN Attending Clinician [phone] Navarro Cat DO Attending Clinician [phone] BARBIE MEJÍA Attending Clinician Unavail able BRYAN SHERMAN Attending Clinician Unavailable Natanael Hendrix MD Attending Clinician [phone] [place] RUSSELL, Urban Attending Clinician [phone] YOHANNES LOPEZ Attending Clinician UnavailNori Chandler Attending Clinician Unavailable RASHEEDA RIOJAS Admitting Clinician Unavailable MOE VALLEJO Admitting Clinician Unavailable Moe Vallejo MD Admitting Clinician [phone] JUAN F BOYD Admitting Clinician Unavailable Juan F Boyd MD Admitting Clinician [phone] EMIL RAMACHANDRAN Admitting Clinician Unavailable Emil Ramachandran MD Admitting Clinician [phone] [place] RUSSELL, Urban Admitting Clinician [phone] Payers Payer Name Policy Type Policy Number Effective Date Expirati on Date Source MEDICAID PENDING PENDING 2020 00:00:00 [place] [id number] 2023 00:00:00 Problems Condition Name Condition Details Condition Category Status Onset Date Resolution Date Last Treatment Date Treating Clinician Comments Source Hypertensi ve emergency Hypertensi ve emergency Disease Active 10-24 00:00: 00 [facility] Left leg cellulitis Left leg cellulitis Disease Active 07-13 00:00: 00 [facility] BELL (acute kidney injury) BELL (acute kidney injury) Disease Active 06-05 00:00: 00 [facility] [id number]-isxc radha premature ovarian failure XBT15-yiml radha premature ovarian failure Disease Active 06-05 00:00: 00 [facility] Coronary artery disease involving [place] coronary artery of [place] heart without angina pectoris Coronary artery disease involving [place] coronary artery of [place]osh[place] heart without angina pectoris Disease Active 06-05 00:00: 00 [facility] PAD (periphera l artery disease) PAD (periphera l artery disease) Disease Active 2022-0 4-24 00:00: 00 [facility] Elevated brain natriureti c peptide (BNP) level Elevated brain natriureti c peptide (BNP) level Disease Active 4-24 00:00: 00 [facility] Coronary artery disease involving [place] coronary artery of [place] heart without angina pectoris Coronary artery disease involving [place]osh[place] coronary artery of [place] heart without angina pectoris Disease Active 424 00:00: 00 [facility] Acute renal failure superimpos ed on stage 3 chronic kidney disease Acute renal failure superimpos ed on stage 3 chronic kidney disease Disease Active 424 00:00: 00 [facility] Hypertensi ve urgency Hypertensi ve urgency Disease Active 4 00:00: 00 [facility] HTN (hypertens ion) HTN (hypertens ion) Disease Active 420 00:00: 00 [facility] Essential hypertensi on Essential hypertensi on Disease Active 0 8-03 00:00: 00 [facility] Stage 3 chronic kidney disease Stage 3 chronic kidney disease Disease Active 0 8-03 00:00: 00 [facility] History of cocaine abuse History of cocaine abuse Disease Active 0 8-03 00:00: 00 [facility] Elevated troponin Elevated troponin Disease Active 0 7-23 00:00: 00 [facility] Elevated troponin Elevated troponin Disease Active 0 7-23 00:00: 00 [facility] Dizziness Dizziness Disease Active 2017-02 1-19 00:00: 00 [facility] Obesity (BMI 30-39.9) Obesity (BMI 30-39.9) Disease Active 20170 5-21 00:00: 00 [facility] Allergies, Adverse Reactions, Alerts Allergy Name Allergy Type Status Severity Reaction(s) Onset Date Inactive Date Treating Clinician Comments Source NO KNOWN ALLERGIE S Drug Class Active [facility] Social History Social Habit Start Date Stop Date Quantity Comments Source History of tobacco use Passive smoker [facility] History SDOH Alcohol Std Drinks [facility] History SDOH Alcohol Binge [facility] History SDOH Social Connections Get Together [facility] History SDOH Social Connections [facility] SDOH Social Connections Membership [facility] History SDOH Social Connections Meetings [facility] Gender identity [facility] ers[facility] Sexual orientation U niversity [facility] History of Social function 2022-10-26 00:00:00 2022-10-26 00:00:00 [facility] Alcohol intake 2022-10-24 00:00:00 2022-10-24 00:00:00 Ex-drinker (finding) [facility] Tobacco use and exposure 2022-07-15 00:00:00 2022-07-15 00:00:00 Smokeless tobacco non-user [facility] Cigarettes smoked current (pack per day) - Reported 2022-07-15 00:00:00 2022-07-15 00:00:00 [facility] History SDOH Alcohol Frequency 2022-07-14 00:00:00 2022-07-14 00:00:00 1 [facility] History SDOH Social Connections Phone 2022-07-14 00:00:00 2022-07-14 00:00:00 5 [facility] History SDOH Social Connections Living 2022-07-14 00:00:00 2022-07-14 00:00:00 7 [facility] History SDOH Physical Activity DPW 2022-07-14 00:00:00 2022-07-14 00:00:00 3 [facility] History SDOH Physical Activity MPS 2022-07-14 00:00:00 2022-07-14 00:00:00 2 [facility] History SDOH Housing Unable to Pay 2022-07-14 00:00:00 2022-07-14 00:00:00 2 [facility] History SDOH Housing Places Lived 2022-07-14 00:00:00 2022-07-14 00:00:00 1 [facility] History SDOH Housing Homeless Last Year 2022-07-14 00:00:00 2022-07-14 00:00:00 2 [facility] History SDOH Financial 2022-07-14 00:00:00 2022-07-14 00:00:00 5 [facility] History SDOH Food Worry 2022-07-14 00:00:00 2022-07-14 00:00:00 1 [facility] History SDOH Food Scarcity 2022-07-14 00:00:00 2022-07-14 00:00:00 1 [facility] History SDOH Transport Med 2022-07-14 00:00:00 2022-07-14 00:00:00 2 [facility] History SDOH Transport Non-Med 2022-07-14 00:00:00 2022-07-14 00:00:00 2 [facility] Education - What is the highest level of school you have completed or the highest degree you have received? 2022-07-13 00:00:00 2022-07-13 00:00:00 GED or equivalent [facility] Exposure to SARS-CoV-2 (event) 2021-05-25 00:00:00 2021-06-04 11:38:00 Not sure [facility] Sex Assigned At 1960 00:00:00 1960 00:00:00 [facility] Smoking Status Start Date Stop Date Source Occasional tobacco smoker 2022-07-15 00:00:00 [facility] Current every day smoker 2020-06-01 00:00:00 [facility] Medications Ordered Medication Name Filled Medication Name Start Date Stop Date Current Medication? Ordering Clinician Indication Dosage Frequency Signature (SIG) Comments Components Source doxazosin 2 mg tablet 10-28 00:00: 00 11-28 04:59 :00 No [id number] 9104 2mg Take 1 tablet by mouth in the morning for 30 days. [facility] isosorbide mononitrate 60 mg 24 hr tablet 10-28 00:00: 00 11-28 04:59 :00 No [id number] 9104 60mg Take 1 tablet by mouth in the morning for 30 days. [facility] doxazosin 2 mg tablet 10-28 00:00: 00 11-28 04:59 :00 No [id number] 9104 2mg Take 1 tablet by mouth in the morning for 30 days. [facility] isosorbide mononitrate 60 mg 24 hr tablet 16 00:00: 00 11-28 04:59 :00 No [id number] 9104 60mg Take 1 tablet by mouth in the morning for 30 days. [facility] doxazosin (CARDURA) tablet 2 mg 10-27 19:15: 00 Yes 2mg 2 mg, Oral, DAILY, First dose on Sun10/27/22 at 1415, Until Discontinu ed, Routine [facility] carvediloL (COREG) 12.5 mg tablet 10-27 18:47: 34 Yes 12.5mg Take 1 tablet by mouth in the morning and 1 tablet in the evening. Take with meals. [facility] hydrALAZINE 100 mg tablet 10-27 18:47: 34 Yes 100mg Take 1 tablet by mouth in the morning and 1 tablet at noon and 1 tablet in the evening. [facility] amLODIPine 10 mg tablet 10-27 18:47: 34 Yes 10mg Take 1 tablet by mouth in the morning. [facility] carvediloL (COREG) 12.5 mg tablet 10-27 18:47: 34 Yes 12.5mg Take 1 tablet by mouth in the morning and 1 tablet in the evening. Take with meals. [facility] hydrALAZINE 100 mg tablet 10-27 18:47: 34 Yes 100mg Take 1 tablet by mouth in the morning and 1 tablet at noon and 1 tablet in the evening. [facility] amLODIPine 10 mg tablet 10-27 18:47: 34 Yes 10mg Take 1 tablet by mouth in the morning. [facility] carvediloL (COREG) 12.5 mg tablet 10-27 18:47: 34 Yes 12.5mg Take 1 tablet by mouth in the morning and 1 tablet in the evening. Take with meals. [facility] hydrALAZINE 100 mg tablet 2022-0 10-27 18:47: 34 Yes 100mg Take 1 tablet by mouth in the morning and 1 tablet at noon and 1 tablet in the evening. [facility] amLODIPine 10 mg tablet 10-27 18:47: 34 Yes 10mg Take 1 tablet by mouth in the morning. [facility] carvediloL (COREG) 12.5 mg tablet 10-27 18:47: 34 Yes 12.5mg Take 1 tablet by mouth in the morning and 1 tablet in the evening. Take with meals. [facility] hydrALAZINE 100 mg tablet 10-27 18:47: 34 Yes 100mg Take 1 tablet by mouth in the morning and 1 tablet at noon and 1 tablet in the evening. [facility] amLODIPine 10 mg tablet 10-27 18:47: 34 Yes 10mg Take 1 tablet by mouth in the morning. [facility] NIFEdipine ER tablet 60 mg 10-27 13:00: 00 Yes 60mg 60 mg, Oral, BID, First dose (after last modificati on) on Sun10/27/22 at 0800, Until Discontinu ed, Routine [facility] NIFEdipine ER tablet 30 mg 10-27 02:15: 00 10-27 01:34 :00 No 30mg 30 mg, Oral, ONCE, 1 dose, On Sun10/26/22 at 2115, Routine [facility] NIFEdipine ER 60 mg tablet 10-27 00:00: 00 11-27 04:59 :00 No [id number] 60mg Take 1 tablet by mouth in the morning and 1 tablet in the evening. Do all this for 30 days. [facility] NIFEdipine ER 60 mg tablet 10-27 00:00: 00 11-27 04:59 :00 No [id number] 9104 60mg Take 1 tablet by mouth in the morning and 1 tablet in the evening. Do all this for 30 days. [facility] NIFEdipine ER tablet 30 mg 10-26 13:00: 00 10-27 01:13 :30 No 30mg 30 mg, Oral, BID, First dose on Sun10/26/22 at 0800, Until Discontinu ed, Routine [facility] carvediloL (COREG) tablet 12.5 mg 10-25 14:45: 00 Yes 12.5mg 12.5 mg, Oral, BID MEALS, First dose on Sun10/25/22 at 0945, Until Discontinu ed, Routine [facility] isosorbide mononitrate (IMDUR) 24 hr tablet 60 mg 10-25 14:00: 00 Yes 60mg 60 mg, Oral, DAILY, First dose (after last modificati on) on Sun10/25/22 at 0900, Until Discontinu ed, Routine [facility] sulfur hexafluorid e microsphr (LUMASON) injection 5 mL 10-25 13:29: 00 10-25 13:45 :00 No [id number] 5mL 5 mL, Intravenou s, ONCE, 1 dose, On Sun10/25/22 at 0829, Routine
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 Restricted medication : CADEN HANNA [facility] heparin (porcine) injection 5,000 Units 10-25 01:00: 00 Yes 5000U 5,000 Units, Subcutaneo us, Q12H, First dose on Sun10/24/22 at 2000, Until Discontinu ed, Routine [facility] hydrALAZINE (APRESOLINE ) tablet 100 mg 10-24 20:00: 00 Yes 100mg 100 mg, Oral, TID, First dose on Sun10/24/22 at 1500, Until Discontinu ed, Routine [facility] aspirin chewable tablet 81 mg 10-24 20:00: 00 Yes 81mg 81 mg, Oral, DAILY, First dose on Sun10/24/22 at 1500, Until Discontinu ed, Routine [facility] isosorbide mononitrate (IMDUR) 24 hr tablet 30 mg 10-24 20:00: 00 10-25 00:35 :04 No 30mg 30 mg, Oral, DAILY, First dose on Sun10/24/22 at 1500, Until Discontinu ed, Routine [facility] amLODIPine (NORVASC) tablet 10 mg 10-24 20:00: 00 10-25 21:08 :19 No 10mg 10 mg, Oral, DAILY, First dose on Sun10/24/22 at 1500, Until Discontinu ed, Routine [facility] ondansetron (ZOFRAN (PF)) injection 4 mg 10-24 19:53: 55 Yes 4mg 4 mg, Slow IV Push, Q6HPRN, Starting on Sun10/24/22 at 1453, Until Discontinu ed, Routine, Nausea and Vomiting (N/V) [facility] acetaminoph en (TYLENOL) tablet 650 mg 10-24 19:53: 44 Yes 650mg 650 mg, Oral, Q6HPRN, Starting on Sun10/24/22 at 1453, Until Discontinu ed, Routine, Pain (scale 1-3), Temp > 38 C [facility] hydralAZINE (APRESOLINE ) injection 10 mg 10-24 19:50: 42 Yes 10mg 10 mg, Slow IV Push, Q4HPRN, Starting on Sun10/24/22 at 1450, Until Discontinu ed, Routine, DBP=>100; SBP=>180 [facility] hydralAZINE (APRESOLINE ) injection 10 mg 10-24 17:00: 00 10-24 17:02 :00 No 10mg 10 mg, Slow IV Push, ONCE, 1 dose, On Sun10/24/22 at 1200, IRVIN [facility] povidone-io dine 10 % solution 07-17 00:00: 00 Yes [id number] Apply to area(s) daily. [facility] povidone-io dine 10 % solution 07-17 00:00: 00 Yes [id number] Apply to area(s) daily. [facility] povidone-io dine 10 % solution 05 00:00: 00 Yes [id number] Apply to area(s) daily. [facility] povidone-io dine 10 % solution 07-17 00:00: 00 Yes [id number] Apply to area(s) daily. [facility] povidone-io dine 10 % solution 07-17 00:00: 00 10-27 00:00 :00 No [id number] Apply to area(s) daily. [facility] amLODIPine 10 mg tablet 07-17 00:00: 08-17 04:59 :00 No [id number] 10mg Take 1 tablet by mouth in the morning for 30 days. [facility] amLODIPine 10 mg tablet 07-17 00:00: 00 08-17 04:59 :00 No [id number] 10mg Take 1 tablet by mouth in the morning for 30 days. [facility] amLODIPine 10 mg tablet 07-17 00:00: 00 08-17 04:59 :00 No [id number] 10mg Take 1 tablet by mouth in the morning for 30 days. [facility] amLODIPine 10 mg tablet 07-17 00:00: 00 08-17 04:59 :00 No [id number] 10mg Take 1 tablet by mouth in the morning for 30 days. [facility] levoFLOXaci n (LEVAQUIN) tablet 500 mg 07-16 23:00: 00 07-24 22:59 :00 No 500mg 500 mg, Oral, Q48H, 4 doses, First dose on 07/16/22 at 1800, Last dose on 07/22/22 at 1800, Routine
Reason for Anti-Infec tive: Documented Infection< br>Documen radha Infection Site: Skin / Soft Tissue
Duration of Therapy: 10 days [facility] levoFLOXaci n (LEVAQUIN) tablet 500 mg 07-16 23:00: 00 07-16 22:46 :39 No 500mg 500 mg, Oral, Q48H, 4 doses, First dose on 07/16/22 at 1800, Last dose on 07/22/22 at 1800, Routine
Reason for Anti-Infec tive: Documented Infection< br>Aure garcia Infection Site: Skin / Soft Tissue
Duration of Therapy: 10 days [facility] carvediloL 12.5 mg tablet 07-16 14:22: 08 07-16 00:00 :00 No 12.5mg Take 1 tablet by mouth in the morning and 1 tablet in the evening. Take with meals. [facility] carvediloL 12.5 mg tablet 07-16 14:22: 08 07-16 00:00 :00 No 12.5mg Take 1 tablet by mouth in the morning and 1 tablet in the evening. Take with meals. [facility] carvediloL (COREG) tablet 12.5 mg 07-16 13:00: 00 Yes 12.5mg 12.5 mg, Oral, BID MEALS, First dose on Clifford 07/16/22 at 0800, Until Discontinu ed, Routine [facility] carvediloL (COREG) tablet 12.5 mg 07-16 13:00: 00 07-16 22:46 :39 No 12.5mg 12.5 mg, Oral, BID MEALS, First dose on Clifford 07/16/22 at 0800, Until Discontinu ed, Routine [facility] hydrALAZINE (APRESOLINE ) tablet 100 mg 07-16 01:00: 00 Yes 100mg 100 mg, Oral, TID, First dose (after last modificati on) on [facility] 07/15/22 at 1999, Until Discontinu ed, Routine [facility] hydrALAZINE (APRESOLINE ) tablet 100 mg 07-16 01:00: 00 07-16 22:46 :39 No 100mg 100 mg, Oral, TID, First dose (after last modificati on) on [facility] 07/15/22 at 1999, Until Discontinu ed, Routine [facility] carvediloL 12.5 mg tablet 07-16 00:00: 00 08-16 04:59 :00 No [id number] 12.5mg Take 1 tablet by mouth in the morning and 1 tablet in the evening. Take with meals. Do all this for 30 days. [facility] hydrALAZINE 100 mg tablet 3-0 6-04 00:00: 00 08-16 04:59 :00 No [id number] 100mg Take 1 tablet by mouth in the morning and 1 tablet at noon and 1 tablet in the evening. Do all this for 30 days. [facility] carvediloL 12.5 mg tablet 3-0 6-04 00:00: 00 08-16 04:59 :00 No [id number] 12.5mg Take 1 tablet by mouth in the morning and 1 tablet in the evening. Take with meals. Do all this for 30 days. [facility] hydrALAZINE 100 mg tablet 3-0 6-04 00:00: 00 08-16 04:59 :00 No [id number] 100mg Take 1 tablet by mouth in the morning and 1 tablet at noon and 1 tablet in the evening. Do all this for 30 days. [facility] carvediloL 12.5 mg tablet 3-0 6-04 00:00: 00 08-16 04:59 :00 No [id number] 12.5mg Take 1 tablet by mouth in the morning and 1 tablet in the evening. Take with meals. Do all this for 30 days. [facility] hydrALAZINE 100 mg tablet 3-0 6-04 00:00: 00 08-16 04:59 :00 No [id number] 100mg Take 1 tablet by mouth in the morning and 1 tablet at noon and 1 tablet in the evening. Do all this for 30 days. [facility] carvediloL 12.5 mg tablet 3-0 6-04 00:00: 00 08-16 04:59 :00 No [id number] 12.5mg Take 1 tablet by mouth in the morning and 1 tablet in the evening. Take with meals. Do all this for 30 days. [facility] hydrALAZINE 100 mg tablet 3-0 6-04 00:00: 00 08-16 04:59 :00 No [id number] 100mg Take 1 tablet by mouth in the morning and 1 tablet at noon and 1 tablet in the evening. Do all this for 30 days. [facility] levoFLOXaci n 500 mg tablet 07-16 00:00: 00 07-25 04:59 :00 No [id number] 500mg Take 1 tablet by mouth every 48 (forty-eig ht) hours for 8 days. [facility] levoFLOXaci n 500 mg tablet 07-16 00:00: 00 07-25 04:59 :00 No [id number] 500mg Take 1 tablet by mouth every 48 (forty-eig ht) hours for 8 days. [facility] levoFLOXaci n 500 mg tablet 07-16 00:00: 00 07-25 04:59 :00 No [id number] 500mg Take 1 tablet by mouth every 48 (forty-eig ht) hours for 8 days. [facility] clindamycin 300 mg capsule 07-16 00:00: 00 07-24 04:59 :00 No [id number] 300mg Take 1 capsule by mouth 4 (four) times daily for 7 days. [facility] clindamycin 300 mg capsule 07-16 00:00: 00 07-24 04:59 :00 No [id number] 300mg Take 1 capsule by mouth 4 (four) times daily for 7 days. [facility] HYDROcodone -acetaminop hen 5-325 mg tablet 07-16 00:00: 00 07-24 04:59 :00 No [id number] 1{tbl} Take 1 tablet by mouth every 6 (six) hours as needed for Pain (scale 7-10) for up to 7 days. Indication s: acute pain [facility] clindamycin 300 mg capsule 07-16 00:00: 00 07-24 04:59 :00 No [id number] 300mg Take 1 capsule by mouth 4 (four) times daily for 7 days. [facility] HYDROcodone -acetaminop hen 5-325 mg tablet 07-16 00:00: 00 07-24 04:59 :00 No [id number] 1{tbl} Take 1 tablet by mouth every 6 (six) hours as needed for Pain (scale 7-10) for up to 7 days. Indication s: acute pain [facility] HYDROcodone -acetaminop hen (NORCO 5) 5-325 mg tablet 1 tablet 07-15 19:30: 00 07-15 19:44 :00 No 1{tbl} 1 tablet, Oral, ONCE, 1 dose, On 07/15/22 at 1430, Routine, PACU [facility] y [facility] lidocaine 1% (PF) (XYLOCAINE) injection 07-15 18:57: 00 07-15 19:13 :43 No PRN, Starting on 07/15/22 at 1357, Until 07/15/22 at 1413, Routine, Intra-op [facility] sodium chloride 0.9 % irrigation solution 07-15 18:52: 00 07-15 19:13 :43 No PRN, Starting on 07/15/22 at 1352, Until 07/15/22 at 1413, Intra-op [facility] povidone-io dine (BETADINE) 10 % solution 07-15 14:00: 00 Yes Topical, DAILY, First dose (after last modificati on) on 07/15/22 at 0900, Until Discontinu ed, [facility]ine [facility] povidone-[facility]ine (BETADINE) 10 % solution 07-15 14:00: 00 07-16 22:46 :39 No Topical, DAILY, First dose (after last modificati on) on 07/15/22 at 0900, Until Discontinu ed, Routine [facility] levoFLOXaci n in D5W (LEVAQUIN) 750 mg/150 mL Piggyback 750 mg 07-14 22:15: 00 07-15 00:20 :00 No 750mg 750 mg, IV Piggyback, at 100 mL/hr Administer over 90 Minutes, ONCE, 1 dose, On Sun07/14/22 at 1715, IRVIN
Re ason for Anti-Infec tive: Documented Infection< br>Documen radha Infection Site: Skin / Soft Tissue
Duration of Therapy: 7 days [facility] aspirin chewable tablet 81 mg 07-14 14:00: 00 Yes 81mg 81 mg, Oral, DAILY, First dose on Sun07/14/22 at 0900, Until Discontinu ed, Routine [facility] enoxaparin (LOVENOX) injection 30 mg 07-14 14:00: 00 Yes 30mg 30 mg, Subcutaneo us, DAILY, First dose on Sun07/14/22 at 0900, Until Discontinu ed, Routine [facility] aspirin chewable tablet 81 mg 07-14 14:00: 00 07-16 22:46 :39 No 81mg 81 mg, Oral, DAILY, First dose on Sun07/14/22 at 0900, Until Discontinu ed, Routine [facility] enoxaparin (LOVENOX) injection 30 mg 07-14 14:00: 00 07-16 22:46 :39 No 30mg 30 mg, Subcutaneo us, DAILY, First dose on Sun07/14/22 at 0900, Until Discontinu ed, Routine [facility] hydrALAZINE (APRESOLINE ) tablet 50 mg 07-14 13:00: 00 07-15 23:05 :14 No 50mg 50 mg, Oral, TID, First dose (after last modificati on) on Sun07/14/22 at 0800, Until Discontinu ed, Routine [facility] cloNIDine (CATAPRES) tablet 0.1 mg 07-14 11:09: 31 Yes .1mg 0.1 mg, Oral, TIDPRN, Starting on Sun07/14/22 at 0609, Until Discontinu ed, Routine, For SBP > 160, DBP > 100 [facility] cloNIDine (CATAPRES) tablet 0.1 mg 07-14 11:09: 31 07-16 22:46 :39 No .1mg 0.1 mg, Oral, TIDPRN, Starting on Sun07/14/22 at 0609, Until Sun07/16/22 at 1746, Routine, For SBP > 160, DBP > 100 [facility] clindamycin in 5 % dextrose (CLEOCIN) 600 mg/50 mL IV piggyback RTU 600 mg 07-14 10:30: 00 07-19 10:29 :00 No 600mg 600 mg, IV Piggyback, Q8H ABX, 15 doses, First dose on Sun07/14/22 at 0530, Last dose on Sun07/18/22 at 2130, Administer over 30 Minutes, 50 mL
Reas on for Anti-Infec tive: Empiric Therapy for Suspected Infection< br>Empiric Therapy Site: Skin / Soft tissue
Duration of therapy: 5 days
Re stricted use approved by: After Hours (for ADC, CLC, LCC ONLY) [facility] clindamycin in 5 % dextrose (CLEOCIN) 600 mg/50 mL IV piggyback RTU 600 mg 07-14 10:30: 00 07-16 22:46 :39 No 600mg 600 mg, IV Piggyback, Q8H ABX, 15 doses, First dose on Sun07/14/22 at 0530, Last dose on Sun07/18/22 at 2130, Administer over 30 Minutes, 50 mL
Reas on for Anti-Infec tive: Empiric Therapy for Suspected Infection< br>Empiric Therapy Site: Skin / Soft tissue
Duration of therapy: 5 days
Re stricted use approved by: After Hours (for ADC, CLC, LCC ONLY) [facility] amLODIPine (NORVASC) tablet 10 mg 07-14 09:30: 00 Yes 10mg 10 mg, Oral, DAILY, First dose (after last modificati on) on Sun07/14/22 at 0430, Until Discontinu ed, Routine [facility] amLODIPine (NORVASC) tablet 10 mg 07-14 09:30: 00 07-16 22:46 :39 No 10mg 10 mg, Oral, DAILY, First dose (after last modificati on) on Sun07/14/22 at 0430, Until Discontinu ed, Routine [facility] hydrALAZINE (APRESOLINE ) tablet 50 mg 07-14 03:30: 00 07-14 11:07 :50 No 50mg 50 mg, Oral, BID, First dose on Sun07/13/22 at 2230, Until Discontinu ed, Routine [facility] losartan (COZAAR) tablet 50 mg 07-14 03:30: 00 07-14 09:28 :03 No 50mg 50 mg, Oral, DAILY, First dose on Sun07/13/22 at 2230, Until Discontinu ed, Routine [facility] labetaloL (NORMODYNE) injection 10 mg 07-14 03:22: 41 Yes 10mg 10 mg, Slow IV Push, Q4HPRN, Starting on Sun07/13/22 at 2222, Until Discontinu ed, Routine, For SBP > 160, DBP > 100, HR > 60. Hold for SBP < 110, DBP < 60. HR < 60 [facility] labetaloL (NORMODYNE) injection 10 mg 07-14 03:22: 41 07-16 22:46 :39 No 10mg 10 mg, Slow IV Push, Q4HPRN, Starting on Sun07/13/22 at 2222, Until Sun07/16/22 at 1746, Routine, For SBP > 160, DBP > 100, HR > 60. Hold for SBP < 110, DBP < 60. HR < 60 [facility] hydralAZINE (APRESOLINE ) injection 10 mg 07-14 03:22: 26 Yes 10mg 10 mg, Slow IV Push, Q4HPRN, Starting on Sun07/13/22 at 2222, Until Discontinu ed, Routine, DBP=>100; SBP=>160 [facility] hydralAZINE (APRESOLINE ) injection 10 mg 2022-07-14 03:22: 26 07-16 22:46 :39 No 10mg 10 mg, Slow IV Push, Q4HPRN, Starting on Sun07/13/22 at 2222, Until 07/16/22 at 1746, Routine, DBP=>100; SBP=>160 [facility] hydralAZINE (APRESOLINE ) injection 10 mg 07-14 02:15: 00 07-14 02:23 :00 No 10mg 10 mg, Slow IV Push, ONCE, 1 dose, On Sun07/13/22 at 2115, IRVIN [facility] HYDROcodone -acetaminop hen (NORCO) 10-325 mg tablet 1 tablet 07-14 01:57: 07 Yes 1{tbl} 1 tablet, Oral, Q6HPRN, Starting on Leslee 07/13/22 at 2056, Until Discontinu ed, Routine, Pain (scale 7-10) [facility] HYDROcodone -acetaminop hen (NORCO) 10-325 mg tablet 1 tablet 07-14 01:57: 07 07-16 22:46 :39 No 1{tbl} 1 tablet, Oral, Q6HPRN, Starting on Sun07/13/22 at 2056, Until 07/16/22 at 1746, Routine, Pain (scale 7-10) [facility] acetaminoph en (TYLENOL) tablet 650 mg 07-14 01:56: 54 Yes 650mg 650 mg, Oral, Q6HPRN, Starting on Sun07/13/22 at 2055, Until Discontinu ed, Routine, Pain (scale 1-3) [facility] acetaminoph en (TYLENOL) tablet 650 mg 07-14 01:56: 54 07-16 22:46 :39 No 650mg 650 mg, Oral, Q6HPRN, Starting on Leslee 07/13/22 at 2055, Until Clifford 07/16/22 at 174, Routine, Pain (scale 1-3) [facility] lactated ringers IV infusion 1,000 mL 07-14 00:30: 00 07-14 03:23 :46 No 1000mL at 150 mL/hr, 1,000 mL, IV Infusion, CONTINUOUS , Starting on Leslee 07/13/22 at 1930, Until Leslee 07/13/22 at 2223, IRVIN [facility] morpHINE (4 mg/mL) injection 4 mg 07-14 00:00: 00 07-13 23:50 :00 No 4mg 4 mg, Slow IV Push, ONCE, 1 dose, On Leslee 07/13/22 at 1900, STAT [facility] ampicillin- sulbactam (UNASYN) 3 g in NaCl 0.9% (NS) 100 mL MINI-BAG 07-13 23:30: 00 07-14 00:24 :00 No 3g 3 g, IV Piggyback, ONCE, 1 dose, On Leslee 07/13/22 at 1830, Administer over 30 Minutes, 100 mL
Reas on for Anti-Infec tive: Documented Infection< br>Documen radha Infection Site: Skin / Soft Tissue
Duration of Therapy: 7 days [facility] ondansetron (ZOFRAN (PF)) injection 4 mg 07-13 23:30: 00 07-13 23:48 :00 No 4mg 4 mg, Slow IV Push, ONCE, 1 dose, On Leslee 07/13/22 at 1830, [facility] losartan 50 mg tablet 06-07 00:00: 00 Yes [id number] 50mg Take 1 tablet by mouth daily. [facility] losartan 50 mg tablet 06-07 00:00: 00 Yes [id number] 50mg Take 1 tablet by mouth daily. [facility] losartan 50 mg tablet 06-07 00:00: 00 07-16 00:00 :00 No [id number] 50mg Take 1 tablet by mouth daily. [facility] losartan 50 mg tablet 06-07 00:00: 00 07-16 00:00 :00 No [id number] 50mg Take 1 tablet by mouth daily. [facility] sulfur hexafluorid e microsphr (LUMASON) injection 5 mL 06-06 20:45: 00 06-06 20:45 :00 No [id number] 5mL 5 mL, Intravenou s, ONCE, 1 dose, On 06/06/21 at 1545, Routine
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 [facility] hydrALAZINE 50 mg tablet 06-06 00:00: 00 Yes [id number] 50mg Take 1 tablet by mouth 2 (two) times daily. [facility] amLODIPine 10 mg tablet 06-06 00:00: 00 Yes [id number] 10mg Take 1 tablet by mouth daily. [facility] hydrALAZINE 50 mg tablet 06-06 00:00: 00 Yes [id number] 50mg Take 1 tablet by mouth 2 (two) times daily. [facility] amLODIPine 10 mg tablet 06-06 00:00: 00 07-16 00:00 :00 No [id number] 10mg Take 1 tablet by mouth daily. [facility] hydrALAZINE 50 mg tablet 06-06 00:00: 00 07-16 00:00 :00 No [id number] 50mg Take 1 tablet by mouth 2 (two) times daily. [facility] amLODIPine 10 mg tablet 06-06 00:00: 00 07-16 00:00 :00 No [id number] 10mg Take 1 tablet by mouth daily. [facility] hydrALAZINE 50 mg tablet 06-06 00:00: 00 07-16 00:00 :00 No [id number] 50mg Take 1 tablet by mouth 2 (two) times daily. [facility] aspirin chewable tablet 81 mg 06-05 14:00: 00 Yes 81mg 81 mg, Oral, DAILY, First dose on 06/05/21 at 0900, Until Discontinu ed, Routine [facility] hydrALAZINE (APRESOLINE ) tablet 50 mg 06-05 13:45: 00 Yes 50mg 50 mg, Oral, BID, First dose on 06/05/21 at 0845, Until Discontinu ed, Routine [facility] hydralAZINE (APRESOLINE ) injection 20 mg 06-05 13:09: 23 Yes 20mg 20 mg, Slow IV Push, Q4HPRN, Starting on 06/05/21 at 0809, Until Discontinu ed, STAT, DBP=>100; SBP=>180 [facility] niCARdipine (CARDENE I.V.) 40 mg in NaCL 200 mL (RTU) infusion 06-04 19:20: 57 06-05 13:11 :17 No 2.5mg/h 2.5-15 mg/hr (12.5-75 mL/hr), IV Infusion, TITRATE, SBP Goal < 180 mmHg, Starting on 06/04/21 at 1420 [facility] amLODIPine (NORVASC) tablet 10 mg 06-04 18:30: 00 Yes 10mg 10 mg, Oral, DAILY, First dose on 06/04/21 at 1330, Until Discontinu ed, Routine [facility] losartan (COZAAR) tablet 50 mg 06-04 18:30: 00 Yes 50mg 50 mg, Oral, DAILY, First dose on 06/04/21 at 1330, Until Discontinu ed, Routine [facility] hydralAZINE (APRESOLINE ) injection 10 mg 06-04 18:00: 00 06-04 16:54 :00 No 10mg 10 mg, Slow IV Push, ONCE, 1 dose, On 06/04/21 at 1300, IRVIN [facility] hydrALAZINE 100 mg tablet 07-08 00:00: 00 08-08 04:59 :00 No [id number] 100mg Take 1 tablet by mouth every 8 (eight) hours for 30 days. [facility] furosemide 40 mg tablet 07-08 00:00: 00 08-08 04:59 :00 No [id number] 40mg Take 1 tablet by mouth every morning for 30 days. [facility] atorvastati n 40 mg tablet 07-08 00:00: 00 08-08 04:59 :00 No [id number] 40mg Take 1 tablet by mouth at bedtime for 30 days. [facility] carvediloL 12.5 mg tablet 07-08 00:00: 00 08-08 04:59 :00 No [id number] 12.5mg Take 1 tablet by mouth 2 (two) times daily with meals for 30 days. [facility] meclizine 12.5 mg tablet 06-10 00:00: 00 Yes [id number] 12.5mg Take 1 tablet by mouth 3 (three) times daily as needed for Dizziness. [facility] aspirin 81 mg chewable tablet 06-10 00:00: 00 Yes [id number] 81mg Take 1 tablet by mouth daily. [facility] amLODIPine 10 mg tablet 06-10 00:00: 00 Yes [id number] 10mg Take 1 tablet by mouth daily. [facility] meclizine 12.5 mg tablet 06-10 00:00: 00 Yes [id number] 12.5mg Take 1 tablet by mouth 3 (three) times daily as needed for Dizziness. [facility] aspirin 81 mg chewable tablet 06-10 00:00: 00 Yes [id number] 81mg Take 1 tablet by mouth daily. [facility] amLODIPine 10 mg tablet 06-10 00:00: 00 Yes [id number] 10mg Take 1 tablet by mouth daily. [facility] meclizine 12.5 mg tablet 06-10 00:00: 00 Yes [id number] 12.5mg Take 1 tablet by mouth 3 (three) times daily as needed for Dizziness. [facility] aspirin 81 mg chewable tablet 06-10 00:00: 00 Yes [id number] 81mg Take 1 tablet by mouth daily. [facility] meclizine 12.5 mg tablet -29 00:00: 00 Yes [id number] 12.5mg Take 1 tablet by mouth 3 (three) times daily as needed for Dizziness. [facility] aspirin 81 mg chewable tablet 0 06-10 00:00: 00 Yes [id number] 81mg Take 1 tablet by mouth daily. [facility] meclizine 12.5 mg tablet 0 06-10 00:00: 00 Yes [id number] 12.5mg Take 1 tablet by mouth 3 (three) times daily as needed for Dizziness. [facility] aspirin 81 mg chewable tablet 0 06-10 00:00: 00 Yes [id number] 81mg Take 1 tablet by mouth daily. [facility] meclizine 12.5 mg tablet 0 06-10 00:00: 00 Yes [id number] 12.5mg Take 1 tablet by mouth 3 (three) times daily as needed for Dizziness. [facility] aspirin 81 mg chewable tablet 0 06-10 00:00: 00 Yes [id number] 81mg Take 1 tablet by mouth daily. [facility] meclizine 12.5 mg tablet 0 06-10 00:00: 00 Yes [id number] 12.5mg Take 1 tablet by mouth 3 (three) times daily as needed for Dizziness. [facility] aspirin 81 mg chewable tablet 0 06-10 00:00: 00 Yes [id number] 81mg Take 1 tablet by mouth daily. [facility] meclizine 12.5 mg tablet 2020-0 06-10 00:00: 00 Yes [id number] 12.5mg Take 1 tablet by mouth 3 (three) times daily as needed for Dizziness. [facility] aspirin 81 mg chewable tablet 2020-0 06-10 00:00: 00 Yes [id number] 81mg Take 1 tablet by mouth daily. [facility] meclizine 12.5 mg tablet 2020-0 06-10 00:00: 00 Yes [id number] 12.5mg Take 1 tablet by mouth 3 (three) times daily as needed for Dizziness. [facility] aspirin 81 mg chewable tablet 06-10 00:00: 00 Yes [id number] 81mg Take 1 tablet by mouth daily. [facility] meclizine 12.5 mg tablet 06-10 00:00: 00 Yes [id number] 12.5mg Take 1 tablet by mouth 3 (three) times daily as needed for Dizziness. [facility] aspirin 81 mg chewable tablet 06-10 00:00: 00 Yes [id number] 81mg Take 1 tablet by mouth daily. [facility] meclizine 12.5 mg tablet 06-10 00:00: 00 Yes [id number] 12.5mg Take 1 tablet by mouth 3 (three) times daily as needed for Dizziness. [facility] aspirin 81 mg chewable tablet 06-10 00:00: 00 Yes [id number] 81mg Take 1 tablet by mouth daily. [facility] meclizine 12.5 mg tablet 06-10 00:00: 00 Yes [id number] 12.5mg Take 1 tablet by mouth 3 (three) times daily as needed for Dizziness. [facility] aspirin 81 mg chewable tablet 06-10 00:00: 00 Yes [id number] 81mg Take 1 tablet by mouth daily. [facility] amLODIPine 10 mg tablet 06-10 00:00: 00 06-06 00:00 :00 No [id number] 10mg Take 1 tablet by mouth daily. [facility] furosemide 40 mg tablet 06-04 00:00: 00 07-05 04:59 :00 No [id number] 40mg Take 1 tablet by mouth daily for 30 days. [facility] furosemide 40 mg tablet 06-04 00:00: 00 07-05 04:59 :00 No [id number] 40mg Take 1 tablet by mouth daily for 30 days. [facility] furosemide 40 mg tablet 06-04 00:00: 00 07-05 04:59 :00 No [id number] 40mg Take 1 tablet by mouth daily for 30 days. [facility] carvediloL (COREG) tablet 12.5 mg 06-03 22:00: 00 Yes 12.5mg 12.5 mg, Oral, BID MEALS, First dose (after last modificati on) on Sun06/03/20 at 1700, Until Discontinu ed, [facility]OL[facility] 100 mg 06-03 12:00: 00 Yes 100mg 100 mg, Oral, Q8H, First dose (after last modificati on) on Sun06/03/20 at 0700, Until Discontinu ed, Routine [facility] melatonin (MELATIN) tablet 3 mg 06-03 02:30: 00 Yes 3mg 3 mg, Oral, QHS, First dose on Sun06/02/20 at 2130, Until Discontinu ed, Routine [facility] hydrALAZINE 50 mg tablet 06-03 00:00: 00 07-04 04:59 :00 No [id number] 100mg Take 2 tablets by mouth every 8 (eight) hours for 30 days. [facility] atorvastati n 40 mg tablet 06-03 00:00: 00 07-04 04:59 :00 No [id number] 40mg Take 1 tablet by mouth every evening for 30 days. [facility] carvediloL 12.5 mg tablet 06-03 00:00: 00 07-04 04:59 :00 No [id number] 12.5mg Take 1 tablet by mouth 2 (two) times daily with meals for 30 days. [facility] hydrALAZINE 50 mg tablet 06-03 00:00: 00 07-04 04:59 :00 No [id number] 100mg Take 2 tablets by mouth every 8 (eight) hours for 30 days. [facility] atorvastati n 40 mg tablet 06-03 00:00: 00 07-04 04:59 :00 No [id number] 40mg Take 1 tablet by mouth every evening for 30 days. [facility] carvediloL 12.5 mg tablet 06-03 00:00: 00 07-04 04:59 :00 No [id number] 12.5mg Take 1 tablet by mouth 2 (two) times daily with meals for 30 days. [facility] hydrALAZINE 50 mg tablet 06-03 00:00: 00 07-04 04:59 :00 No [id number] 100mg Take 2 tablets by mouth every 8 (eight) hours for 30 days. [facility] atorvastati n 40 mg tablet 06-03 00:00: 00 07-04 04:59 :00 No [id number] 40mg Take 1 tablet by mouth every evening for 30 days. [facility] carvediloL 12.5 mg tablet 06-03 00:00: 00 07-04 04:59 :00 No [id number] 12.5mg Take 1 tablet by mouth 2 (two) times daily with meals for 30 days. [facility] carvediloL (COREG) tablet 6.25 mg 06-02 22:00: 00 06-03 17:25 :28 No 6.25mg 6.25 mg, Oral, BID MEALS, First dose on Sun06/02/20 at 1700, Until Discontinu ed, Routine [facility] furosemide (LASIX) tablet 40 mg 06-02 15:45: 00 Yes 40mg 40 mg, Oral, DAILY, First dose on Sun06/02/20 at 1045, Until Discontinu ed, Routine [facility] amLODIPine (NORVASC) tablet 10 mg 06-02 14:00: 00 Yes 10mg 10 mg, Oral, DAILY, First dose (after last modificati on) on Sun06/02/20 at 0900, Until Discontinu ed, Routine [facility] aspirin chewable tablet 81 mg 06-02 14:00: 00 Yes 81mg 81 mg, Oral, DAILY, First dose on Sun06/02/20 at 0900, Until Discontinu ed, Routine [facility] hydrALAZINE (APRESOLINE ) tablet 50 mg 06-02 14:00: 00 06-03 11:42 :18 No 50mg 50 mg, Oral, Q8H, First dose (after last modificati on) on Sun06/02/20 at 0900, Until Discontinu ed, Routine [facility] magnesium sulfate in water 2 gram/50 mL (4 %) infusion 2 g 06-02 13:00: 00 06-02 15:57 :00 No 2g 2 g, IV Piggyback, ONCE, 1 dose, Sun06/02/20 at 0800, Routine [facility] Potassium Bicarb-Citr ic Acid (EFFER-K) effervescen t tablet 40 mEq 06-02 12:00: 00 Yes 40meq 40 mEq, Oral, DAILY, First dose on Sun06/02/20 at 0700, Until Discontinu ed, Routine [facility] atorvastati n (LIPITOR) tablet 40 mg 06-01 22:00: 00 Yes 40mg 40 mg, Oral, QPM, First dose on Sun06/01/20 at 1700, Until Discontinu ed, Routine [facility] isosorbide mononitrate (IMDUR) 24 hr tablet 30 mg 06-01 21:45: 00 06-03 17:27 :14 No 30mg 30 mg, Oral, DAILY, First dose on Sun06/01/20 at 1645, Until Discontinu ed, Routine [facility] amLODIPine (NORVASC) tablet 5 mg 06-01 21:45: 00 06-02 12:04 :42 No 5mg 5 mg, Oral, DAILY, First dose (after last modificati on) on Sun06/01/20 at 1645, Until Discontinu ed, Routine [facility] nitroglycer in (NITROSTAT) sublingual tablet 0.4 mg 06-01 21:28: 04 Yes .4mg 0.4 mg, Sublingual , Q5MIN PRN, Starting Sun06/01/20 at 1628, Until Discontinu ed, Routine, Chest pain [facility] ondansetron (ZOFRAN (PF)) injection 4 mg 06-01 21:27: 53 Yes 4mg 4 mg, Slow IV Push, Q6HPRN, Starting Sun06/01/20 at 1627, Until Discontinu ed, Routine, Nausea and Vomiting (N/V) [facility] heparin 25,000 Units/250 mL (Premixed Bag) in 0.45 % NS 06-01 19:37: 31 06-02 15:34 :42 No 1000U/h 1,000 Units/hr (10 mL/hr), IV Infusion, TITRATE, Parameters in Admin. Instr., Starting Sun06/01/20 at 1437
CA UTION - If LMWH given in ER, AVOID bolus and start next dose/drip 12 hrs after ER dosage.&nb sp; M ust program rate using programmab le infusion pump.&nbsp ; Nancie ck with the ordering provider first prior to any administra tion should the patient be on existing/a dditional anticoagul ant therapy. Rang e, Dosing and Testing: &nbs p;FOR [facility], AND [facility] ONLY &nbs p; - aPTT < 35: & nbsp;Bolus 5000 units, increase rate 300 units/hr&n bsp; - aPTT 35-44:&nbs p; [place] john 3000 units, increase rate 200 units/hr&n bsp; - aPTT 45-54:&nbs p; In crease rate 100 units/hr&n bsp; - aPTT 55-85:&nbs p;&nbs p;NO CHANGE&nbs p; - aPTT 86-95:&nbs p; De crease rate 100 units/hr&n bsp; - aPTT 96-120:&nb sp; H old 30 minutes, decrease rate 150 units/hr&n bsp; - aPTT > 120: Hold 60 minutes, decrease rate 200 units/hr&n bsp; Check aPTT 6 hours after initiation , then Q6H after every change, aPTT Q12H once therapeuti c levels are reached.&n bsp; &nbs p; __ &n bsp;FOR [facility] ONLY - aPTT < 40: & nbsp;Bolus 5000 units, increase rate 300 units/hr&n bsp; - aPTT 40-49:&nbs p; [place] john 3000 units, increase rate 200 units/hr&n bsp; - aPTT 50-59:&nbs p; In crease rate 100 units/hr&n bsp; - aPTT 60-85:&nbs p; NO CHANGE&nbs p; - aPTT 86-95:&nbs p;&nbs p;Decrease rate 100 units/hr&n bsp; - aPTT 96-120:&nb sp; H old 30 minutes, decrease rate 150 units/hr&n bsp; - aPTT > 120: Hold 60 minutes, decrease rate 200 units/hr&n bsp; Check aPTT 6 hours after initiation , then Q6H after every change, aPTT Q12H once therapeuti c levels are reached.&n bsp; DO NOT ADJUST INITIAL BOLUS OR INITIAL INFUSION RATE.
[facility] nitroglycer in 50 mg in D5W 250 mL infusion RTU 2020-06-01 19:15: 07 Yes 5ug/min 5-200 mcg/min (1.5-60 mL/hr), IV Infusion, TITRATE, SBP<180, DBP<110, Starting 06/01/20 at 1415
In itiate infusion at 5 mcg/min.&n bsp; Titrate by 5 mcg/min every 3 minutes to 5 minutes as needed to achieve and maintain goal blood pressure. Maximum dose = 200 mcg/min. If goal not maintained at maximum allowed dose, contact prescriber .
[facility] HEPARIN SODIUM (PORCINE) 1,000 UNIT/ML BOLUS ACS ORDER SET 06-01 18:45: 00 06-01 18:59 :00 No 4000U 4,000 Units, IV Push, ONCE, 1 dose, 06/01/20 at 1345, IRVIN [facility] furosemide (LASIX) injection 40 mg 06-01 18:30: 00 06-01 17:55 :00 No 40mg 40 mg, IV Push, ONCE, 1 dose, 06/01/20 at 1330, IRVIN [facility] nitroglycer in (NITROSTAT) sublingual tablet 0.4 mg 06-01 18:30: 00 06-01 17:55 :00 No .4mg 0.4 mg, Sublingual , ONCE, 1 dose, 06/01/20 at 1330, IRVIN [facility] hydrALAZINE 100 mg tablet 10-01 00:00: 00 11-01 04:59 :00 No [id number] 100mg Take 1 tablet by mouth every 6 (six) hours for 30 days. [facility] cloNIDine (CATAPRES) 0.1 mg tablet 10-01 00:00: 00 11-01 04:59 :00 No [id number] .1mg Take 1 tablet by mouth 2 (two) times daily for 30 days. [facility] hydrALAZINE 100 mg tablet 10-01 00:00: 00 11-01 04:59 :00 No [id number] 100mg Take 1 tablet by mouth every 6 (six) hours for 30 days. [facility] cloNIDine (CATAPRES) 0.1 mg tablet 10-01 00:00: 11-01 04:59 :00 No [id number] .1mg Take 1 tablet by mouth 2 (two) times daily for 30 days. [facility] hydrALAZINE 100 mg tablet 10-01 00:00: 11-01 04:59 :00 No [id number] 100mg Take 1 tablet by mouth every 6 (six) hours for 30 days. [facility] cloNIDine (CATAPRES) 0.1 mg tablet 10-01 00:00: 11-01 04:59 :00 No [id number] .1mg Take 1 tablet by mouth 2 (two) times daily for 30 days. [facility] hydrALAZINE 100 mg tablet 10-01 00:00: 11-01 04:59 :00 No [id number] 100mg Take 1 tablet by mouth every 6 (six) hours for 30 days. [facility] cloNIDine (CATAPRES) 0.1 mg tablet 10-01 00:00: 11-01 04:59 :00 No [id number] .1mg Take 1 tablet by mouth 2 (two) times daily for 30 days. [facility] NIFEdipine ER (AFEDITAB CR) tablet 60 mg 09-06 01:00: 00 Yes 60mg 60 mg, Oral, BID, First dose on Sun09/06/19 at 2000, Until Discontinu ed, Routine [facility] amLODIPine 10 mg tablet 09-05 00:00: 00 Yes [id number] 10mg Take 1 tablet by mouth daily. [facility] lisinopril 5 mg tablet 09-05 00:00: 00 Yes [id number] 5mg Take 1 tablet by mouth daily. [facility] hydrALAZINE 100 mg tablet 09-05 00:00: 00 Yes [id number] 100mg Take 1 tablet by mouth every 8 (eight) hours. [facility] amLODIPine 10 mg tablet 09-05 00:00: 00 Yes [id number] 10mg Take 1 tablet by mouth daily. [facility] lisinopril 5 mg tablet 2019-0 7-25 00:00: 00 Yes [id number] 5mg Take 1 tablet by mouth daily. [facility] hydrALAZINE 100 mg tablet 2019-0 7-25 00:00: 00 Yes [id number] 100mg Take 1 tablet by mouth every 8 (eight) hours. [facility] amLODIPine 10 mg tablet 2019-0 7-25 00:00: 00 Yes [id number] 10mg Take 1 tablet by mouth daily. [facility] lisinopril 5 mg tablet 2019-0 7-25 00:00: 00 Yes [id number] 5mg Take 1 tablet by mouth daily. [facility] amLODIPine 10 mg tablet 2019-0 7-25 00:00: 00 Yes [id number] 10mg Take 1 tablet by mouth daily. [facility] lisinopril 5 mg tablet 2019-0 7-25 00:00: 00 Yes [id number] 5mg Take 1 tablet by mouth daily. [facility] amLODIPine 10 mg tablet 2019-0 7-25 00:00: 00 Yes [id number] 10mg Take 1 tablet by mouth daily. [facility] lisinopril 5 mg tablet 2019-0 7-25 00:00: 00 Yes [id number] 5mg Take 1 tablet by mouth daily. [facility] amLODIPine 10 mg tablet 2019-0 -25 00:00: 00 Yes [id number] 10mg Take 1 tablet by mouth daily. [facility] lisinopril 5 mg tablet 2019-0 7-25 00:00: 00 Yes [id number] 5mg Take 1 tablet by mouth daily. [facility] amLODIPine 10 mg tablet 2019-0 25 00:00: 00 Yes [id number] 10mg Take 1 tablet by mouth daily. [facility] lisinopril 5 mg tablet 2019-0 7-25 00:00: 00 Yes [id number] 5mg Take 1 tablet by mouth daily. [facility] amLODIPine 10 mg tablet 2019-0 7-25 00:00: 00 Yes [id number] 10mg Take 1 tablet by mouth daily. [facility] amLODIPine 10 mg tablet 2019-0 7-25 00:00: 00 Yes [id number] 10mg Take 1 tablet by mouth daily. [facility] amLODIPine 10 mg tablet 09-05 00:00: 00 Yes [id number] 10mg Take 1 tablet by mouth daily. [facility] amLODIPine 10 mg tablet 09-05 00:00: 00 Yes [id number] 10mg Take 1 tablet by mouth daily. [facility] lisinopril 5 mg tablet 09-05 00:00: 00 Yes [id number] 5mg Take 1 tablet by mouth daily. [facility] hydrALAZINE 100 mg tablet 09-05 00:00: 00 Yes [id number] 100mg Take 1 tablet by mouth every 8 (eight) hours. [facility] lisinopril 5 mg tablet 09-05 00:00: 00 06-03 00:00 :00 No [id number] 5mg Take 1 tablet by mouth daily. [facility] hydrALAZINE 100 mg tablet 09-05 00:00: 00 10-01 00:00 :00 No [id number] 100mg Take 1 tablet by mouth every 8 (eight) hours. [facility] hydrALAZINE 100 mg tablet 09-05 00:00: 10-01 00:00 :00 No [id number] 100mg Take 1 tablet by mouth every 8 (eight) hours. [facility] hydrALAZINE 100 mg tablet 09-05 00:00: 09-05 00:00 :00 No [id number] 100mg Take 1 tablet by mouth every 8 (eight) hours. [facility] NaCl 0.9% (NS) IV infusion 1,000 mL 09-04 19:45: 00 Yes 1000mL at 50 mL/hr, IV Infusion, CONTINUOUS , Starting Sun09/05/19 at 1445, Until Discontinu ed, Routine [facility] cloNIDine (CATAPRES) tablet 0.2 mg 09-04 18:30: 00 09-04 17:48 :00 No .2mg 0.2 mg, Oral, ONCE, 1 dose, Sun09/05/19 at 1330, STAT [facility] aspirin chewable tablet 81 mg 09-04 14:00: 00 Yes 81mg 81 mg, Oral, DAILY, First dose on Sun09/05/19 at 0900, Until Discontinu ed, Routine [facility] amLODIPine (NORVASC) tablet 10 mg 09-04 14:00: 00 09-05 17:38 :51 No 10mg 10 mg, Oral, DAILY, First dose on Sun09/05/19 at 0900, Until Discontinu ed, Routine [facility] KCL (KLOR-CON M20) tablet 20 mEq 09-04 14:00: 00 09-04 13:19 :00 No 20meq 20 mEq, Oral, DAILY, 1 dose, First dose on Sun09/05/19 at 0900, Routine [facility] zinc sulfate (ORAZINC) capsule 220 mg 09-04 13:00: 00 Yes 220mg 220 mg, Oral, BID, First dose on Sun09/05/19 at 0800, Until Discontinu ed, Routine [facility] ascorbic acid (vitamin C) (VITAMIN C) tablet 500 mg 09-04 13:00: 00 Yes 500mg 500 mg, Oral, BID, First dose on Sun09/05/19 at 0800, Until Discontinu ed, Routine [facility] heparin 25,000 unit/250 mL (Premixed Bag) in D5W 09-04 04:34: 24 09-04 21:52 :00 No 1000U/h 1,000 Units/hr (10 mL/hr), IV Infusion, TITRATE, Parameters in Admin. Instr., Starting Leslee 09/04/19 at 2334
CA UTION - If LMWH given in ER, AVOID bolus and start dose/drip 12 hours after ER dosage.&nb sp; M ust program rate using programmab le infusion pump.&nbsp ; Nancie ck with the ordering provider first prior to any administra tion should the patient be on existing/a dditional anticoagul ant therapy.&n bsp; DO NOT ADJUST INITIAL BOLUS OR INITIAL INFUSION RATE Rang e, Dosing and Testing: ____ &nbs p; FO R [facility] ONLY - aPTT < 35: & nbsp;Bolus 5000 units, increase rate 300 units/hr&n bsp; - aPTT 35-44:&nbs p; [place] john 3000 units, increase rate 200 units/hr&n bsp; - aPTT 45-54:&nbs p; In crease rate 100 units/hr&n bsp; - aPTT 55-85:&nbs p; NO CHANGE&amp ;nbsp; - aPTT 86-95:&nbs p; De crease rate 100 units/hr&n bsp; - aPTT 96-120:&nb sp; H old 30 minutes, decrease rate 150 units/hr&n bsp; - aPTT > 120: Hold 60 minutes, decrease rate 200 units/hr&n bsp; Check aPTT 6 hours after initiation , then Q6H after every change, aPTT Q12H once therapeuti c levels are reached.&n bsp; &nbs p; __ &n bsp;FOR [facility] and [facility] ONLY - aPTT < 40: & nbsp;Bolus 3000 units, increase rate 100 units/hr&n bsp; - aPTT 40-49:&nbs p; In crease rate 50 units/hr&n bsp; - aPTT 50-70:&nbs p; NO CHANGE&nbs p; - aPTT 71-85:&nbs p; De crease rate 50 units/hr&n bsp; - aPTT 86-100:&nb sp; H old 30 minutes, decrease rate 100 units/hr&n bsp; -aPTT 101-150:&n bsp; Hold 60 minutes, decrease rate 150 units/hr&n bsp; - aPTT > 150: Hold 60 minutes, decrease rate 300 units/hr&n bsp; Check aPTT 6 hours after initiation , then Q6H after every change, aPTT Q12H once therapeuti c levels are reached.<b r> [facility] heparin 1000 unit/mL injection Soln 4,000 Units 09-04 03:45: 00 09-04 05:04 :00 No 4000U 4,000 Units, IV Push, ONCE, 1 dose, Sun09/04/19 at 2245, Routine [facility] hydrALAZINE (APRESOLINE ) tablet 100 mg 09-04 03:00: 00 Yes 100mg 100 mg, Oral, Q8H, First dose on Sun09/04/19 at 2200, Until Discontinu ed, Routine [facility] heparin (porcine) injection 5,000 Units 09-04 01:00: 00 09-04 03:34 :57 No 5000U 5,000 Units, Subcutaneo us, Q12H, First dose on Sun09/04/19 at 2000, Until Discontinu ed, Routine [facility] NaCl 0.9% (NS) IV infusion 1,000 mL 09-04 00:15: 00 09-04 19:38 :04 No 1000mL at 100 mL/hr, IV Infusion, CONTINUOUS , Starting Sun09/04/19 at 1915, Until Sun09/05/19 at 1438, Routine [facility] cloNIDine (CATAPRES) tablet 0.1 mg 09-03 23:15: 00 09-03 22:14 :00 No .1mg 0.1 mg, Oral, ONCE, 1 dose, Leslee 09/04/19 at 1815, STAT [facility] nitroglycer in (NITROSTAT) sublingual tablet 0.4 mg 09-03 22:51: 25 Yes .4mg 0.4 mg, Sublingual , Q5MIN PRN, Starting Sun09/04/19 at 1751, Until Discontinu ed, Routine, Chest pain [facility] ondansetron (ZOFRAN (PF)) injection 4 mg 09-03 22:51: 02 Yes 4mg 4 mg, Slow IV Push, Q6HPRN, Starting Leslee 09/04/19 at 1751, Until Discontinu ed, Routine, Nausea and Vomiting (N/V) [facility] HYDROcodone -acetaminop hen (NORCO) 10-325 mg tablet 1 tablet 09-03 22:50: 57 Yes 1{tbl} 1 tablet, Oral, Q6HPRN, Starting Leslee 09/04/19 at 1750, Until Discontinu ed, Routine, Pain (scale 7-10) [facility] traMADol (ULTRAM) tablet 50 mg 09-03 22:50: 49 09-05 22:49 :49 No 50mg 50 mg, Oral, Q8HPRN, Starting Leslee 09/04/19 at 1750, Until 09/06/19 at 1749, Routine, Pain (scale 4-6) [facility] acetaminoph en (TYLENOL) tablet 650 mg 09-03 22:50: 40 Yes 650mg 650 mg, Oral, Q6HPRN, Starting Leslee 09/04/19 at 1750, Until Discontinu ed, Routine, Pain (scale 1-3) [facility] iohexol (OMNIPAQUE 350 BULK-50 mL) injection 50 mL 09-03 21:30: 00 09-03 21:30 :00 No 50mL 50 mL, Intravenou s, ONCE, 1 dose, Sun09/04/19 at 1630, Routine [facility] aspirin 81 mg chewable tablet 2017-02 00:00: 00 Yes 81mg Take 1 tablet by mouth daily. [facility] aspirin 81 mg chewable tablet 2017-02 00:00: 00 Yes 81mg Take 1 tablet by mouth daily. [facility] aspirin 81 mg chewable tablet 2017-02 00:00: 00 Yes 81mg Take 1 tablet by mouth daily. [facility] aspirin 81 mg chewable tablet 2017-02 00:00: 00 Yes 81mg Take 1 tablet by mouth daily. [facility] aspirin 81 mg chewable tablet 2017-02 00:00: 00 Yes 81mg Take 1 tablet by mouth daily. [facility] aspirin 81 mg chewable tablet 2017-02 00:00: 00 Yes 81mg Take 1 tablet by mouth daily. [facility] aspirin 81 mg chewable tablet 2017-02 00:00: 00 Yes 81mg Take 1 tablet by mouth daily. [facility] aspirin 81 mg chewable tablet 2017-02 00:00: 00 Yes 81mg Take 1 tablet by mouth daily. [facility] aspirin 81 mg chewable tablet 2017-02 00:00: 00 Yes 81mg Take 1 tablet by mouth daily. [facility] aspirin 81 mg chewable tablet 2017-02 00:00: 00 Yes 81mg Take 1 tablet by mouth daily. [facility] aspirin 81 mg chewable tablet 2017-02 00:00: 00 Yes 81mg Take 1 tablet by mouth daily. [facility] amLODIPine 10 mg tablet 2017-02 00:00: 00 09-05 00:00 :00 No 10mg Take 1 tablet by mouth daily. [facility] meclizine 12.5 mg tablet 2017-02 00:00: 00 Yes 12.5mg Take 1 tablet by mouth 3 (three) times daily as needed for Dizziness. [facility] meclizine 12.5 mg tablet 2017-02 00:00: 00 Yes 12.5mg Take 1 tablet by mouth 3 (three) times daily as needed for Dizziness. [facility] meclizine 12.5 mg tablet 2017-02 00:00: 00 Yes 12.5mg Take 1 tablet by mouth 3 (three) times daily as needed for Dizziness. [facility] meclizine 12.5 mg tablet 2017-02 00:00: 00 Yes 12.5mg Take 1 tablet by mouth 3 (three) times daily as needed for Dizziness. [facility] meclizine 12.5 mg tablet 2017-02 00:00: 00 Yes 12.5mg Take 1 tablet by mouth 3 (three) times daily as needed for Dizziness. [facility] meclizine 12.5 mg tablet 2017-02 00:00: 00 Yes 12.5mg Take 1 tablet by mouth 3 (three) times daily as needed for Dizziness. [facility] meclizine 12.5 mg tablet 2017-02 00:00: 00 Yes 12.5mg Take 1 tablet by mouth 3 (three) times daily as needed for Dizziness. [facility] meclizine 12.5 mg tablet 2017-02 00:00: 00 Yes 12.5mg Take 1 tablet by mouth 3 (three) times daily as needed for Dizziness. [facility] meclizine 12.5 mg tablet 2017-02 00:00: 00 Yes 12.5mg Take 1 tablet by mouth 3 (three) times daily as needed for Dizziness. [facility] meclizine 12.5 mg tablet 2017-02 00:00: 00 Yes 12.5mg Take 1 tablet by mouth 3 (three) times daily as needed for Dizziness. [facility] meclizine 12.5 mg tablet 2017-02 00:00: 00 Yes 12.5mg Take 1 tablet by mouth 3 (three) times daily as needed for Dizziness. [facility] lisinopril 5 mg tablet 2017-02 00:00: 00 09-05 00:00 :00 No 5mg Take 1 tablet by mouth daily. [facility] hydralAZINE 100 mg tablet 2017-02 00:00: 00 09-05 00:00 :00 No 100mg Take 1 tablet by mouth every 8 (eight) hours. [facility] Immunizations Ordered Immunization Name Filled Immunization Name Date Status Comments Source TD Pres-Free 2022-07-14 00:00:00 Completed [facility] TD Pres-Free 2022-07-14 00:00:00 Completed [facility] TD Pres-Free 2022-07-14 00:00:00 Completed [facility] TD Pres-Free 2022-07-14 00:00:00 Completed [facility] TD Pres-Free 2022-07-14 00:00:00 Completed [facility] TD Pres-Free 2022-07-14 00:00:00 Completed [facility] SARS-COV-2 COVID-19 PFIZER VACCINE 2020-07-05 00:00:00 Completed [facility] SARS-COV-2 COVID-19 PFIZER VACCINE 2020-07-05 00:00:00 Completed [facility] SARS-COV-2 COVID-19 PFIZER VACCINE 2020-07-05 00:00:00 Completed [facility] SARS-COV-2 COVID-19 PFIZER VACCINE 2020-07-05 00:00:00 Completed [facility] SARS-COV-2 COVID-19 PFIZER VACCINE 2020-07-05 00:00:00 Completed [facility] SARS-COV-2 COVID-19 PFIZER VACCINE 2020-07-05 00:00:00 Completed [facility] SARS-COV-2 COVID-19 PFIZER VACCINE 2020-07-05 00:00:00 Completed [facility] SARS-COV-2 COVID-19 PFIZER VACCINE 2020-07-05 00:00:00 Completed [facility] SARS-COV-2 COVID-19 PFIZER VACCINE 2020-07-05 00:00:00 Completed [facility] SARS-COV-2 COVID-19 PFIZER VACCINE 2020-07-05 00:00:00 Completed [facility] SARS-COV-2 COVID-19 PFIZER VACCINE 2020-06-05 00:00:00 Completed [facility] SARS-COV-2 COVID-19 PFIZER VACCINE 2020-06-05 00:00:00 Completed [facility] SARS-COV-2 COVID-19 PFIZER VACCINE 2020-06-05 00:00:00 Completed [facility] SARS-COV-2 COVID-19 PFIZER VACCINE 2020-06-05 00:00:00 Completed [facility] SARS-COV-2 COVID-19 PFIZER VACCINE 2020-06-05 00:00:00 Completed [facility] SARS-COV-2 COVID-19 PFIZER VACCINE 2020-06-05 00:00:00 Completed [facility] SARS-COV-2 COVID-19 PFIZER VACCINE 2020-06-05 00:00:00 Completed [facility] SARS-COV-2 COVID-19 PFIZER VACCINE 2020-06-05 00:00:00 Completed [facility] SARS-COV-2 COVID-19 PFIZER VACCINE 2020-06-05 00:00:00 Completed [facility] SARS-COV-2 COVID-19 PFIZER VACCINE 2020-06-05 00:00:00 Completed [facility] SARS-COV-2 COVID-19 PFIZER VACCINE 2020-06-05 00:00:00 Completed [facility] SARS-COV-2 COVID-19 PFIZER VACCINE Unknown Completed [facility] SARS-COV-2 COVID-19 PFIZER VACCINE Unknown Completed [facility] TD Pres-Free Unknown Completed [facility] SARS-COV-2 COVID-19 PFIZER VACCINE Unknown Completed [facility] SARS-COV-2 COVID-19 PFIZER VACCINE Unknown Completed [facility] TD Pres-Free Unknown Completed [facility] Vital Signs Vital Name Observation Time Observation Value Comments S ource Systolic blood pressure 2023-03-11 01:00:00 152 mm[Hg] [facility] Diastolic blood pressure 2023-03-11 01:00:00 77 mm[Hg] [facility] Heart rate 2023-03-11 01:00:00 57 /[facility] Res[facility] 2023-03-11 01:00:00 18 /min [facility] Oxygen saturation in Arterial blood by Pulse oximetry 2023-03-11 01:00:00 98 /min [facility] Body temperature 2023-03-10 21:50:00 37.11 Nae [facility] Body height 2023-03-10 21:50:00 180.3 cm [facility] Body weight 2023-03-10 21:50:00 102.059 kg [facility] BMI 2023-03-10 21:50:00 31.38 kg/m2 [facility] Systolic blood pressure 2022-10-27 22:27:00 162 mm[Hg] [facility] Diastolic blood pressure 2022-10-27 22:27:00 84 mm[Hg] [facility] Heart rate 2022-10-27 22:27:00 81 /min [facility] Oxygen saturation in Arterial blood by Pulse oximetry 2022-10-27 22:27:00 96 /min [facility] Body temperature 2022-10-27 20:40:00 37.39 Nae [facility] Respiratory rate 2022-10-27 20:40:00 18 /min [facility] Body weight 2022-10-27 08:24:00 104.463 kg [facility] BMI 2022-10-27 08:24:00 32.12 kg/m2 [facility] Body height 2022-10-24 18:20:00 180.3 cm [facility] Systolic blood pressure 2022-07-16 16:01:00 168 mm[Hg] [facility] Diastolic blood pressure 2022-07-16 16:01:00 98 mm[Hg] [facility] Heart rate 2022-07-16 16:01:00 56 /min [facility] Body temperature 2022-07-16 16:01:00 36.06 Nae [facility] Respiratory rate 2022-07-16 16:01:00 18 /min [facility] Oxygen saturation in Arterial blood by Pulse oximetry 2022-07-16 16:01:00 97 /min [facility] Body weight 2022-07-16 08:16:00 101.47 kg [facility] BMI 2022-07-16 08:16:00 31.20 kg/m2 [facility] Body height 2022-07-13 22:57:00 180.3 cm [facility] Systolic blood pressure 2022-07-15 19:44:00 156 mm[Hg] [facility] Diastolic blood pressure 2022-07-15 19:44:00 74 mm[Hg] [facility] Heart rate 2022-07-15 19:44:00 56 /min [facility] Respiratory rate 2022-07-15 19:44:00 18 /min [facility] Oxygen saturation in Arterial blood by Pulse oximetry 2022-07-15 19:44:00 97 /min [facility] Body temperature 2022-07-15 16:34:00 36 Nae [facility] Body weight 2022-07-15 05:33:00 101.969 kg [facility] BMI 2022-07-15 05:33:00 31.20 kg/m2 [facility] Body height 2022-07-13 22:57:00 180.3 cm [facility] Systolic blood pressure 2021-06-06 20:29:00 184 mm[Hg] [facility] Diastolic blood pressure 2021-06-06 20:29:00 102 mm[Hg] [facility] Heart rate 2021-06-06 20:29:00 78 /min [facility] Body height 2021-06-06 20:29:00 180.3 cm [facility] Body weight 2021-06-06 20:29:00 112.492 kg [facility] BMI 2021-06-06 20:29:00 34.59 kg/m2 [facility] Body temperature 2021-06-06 17:00:00 36.61 Nae [facility] Oxygen saturation in Arterial blood by Pulse oximetry 2021-06-06 17:00:00 97 /min [facility] Respiratory rate 2021-06-06 13:00:00 24 /min [facility] Heart rate 2020-07-08 17:57:00 64 /min [facility] Oxygen saturation in Arterial blood by Pulse oximetry 2020-07-08 17:57:00 97 /min [facility] Systolic blood pressure 2020-07-08 17:56:00 229 mm[Hg] [facility] Diastolic blood pressure 2020-07-08 17:56:00 121 mm[Hg] [facility] Body temperature 2020-07-08 17:56:00 36.61 Nae [facility] Respiratory rate 2020-07-08 17:56:00 18 /min [facility] Body height 2020-07-08 17:56:00 180.3 cm [facility] Body weight 2020-07-08 17:56:00 108.863 kg [facility] BMI 2020-07-08 17:56:00 33.47 kg/m2 [facility] Systolic blood pressure 2020-06-03 20:10:00 132 mm[Hg] [facility] Diastolic blood pressure 2020-06-03 20:10:00 83 mm[Hg] [facility] Heart rate 2020-06-03 20:10:00 76 /min [facility] Body temperature 2020-06-03 20:10:00 36.72 Nae [facility] Respiratory rate 2020-06-03 20:10:00 20 /min [facility] Oxygen saturation in Arterial blood by Pulse oximetry 2020-06-03 20:10:00 97 /min [facility] Body weight 2020-06-03 00:43:00 112.129 kg [facility] BMI 2020-06-03 00:43:00 34.48 kg/m2 [facility] Body height 2020-06-01 22:23:00 180.3 cm [facility] Systolic blood pressure 2019-10-02 17:01:00 190 mm[Hg] [facility] Diastolic blood pressure 2019-10-02 17:01:00 97 mm[Hg] [facility] Heart rate 2019-10-02 17:01:00 65 /min [facility] Respiratory rate 2019-10-02 16:58:00 19 /min [facility] Body height 2019-10-02 16:58:00 180.3 cm [facility] Body weight 2019-10-02 16:58:00 114.306 kg [facility] BMI 2019-10-02 16:58:00 35.15 kg/m2 [facility] Oxygen saturation in Arterial blood by Pulse oximetry 2019-10-02 16:58:00 98 /min [facility] Systolic blood pressure 2019-10-02 17:01:00 190 mm[Hg] [facility] Diastolic blood pressure 2019-10-02 17:01:00 97 mm[Hg] [facility] Heart rate 2019-10-02 17:01:00 65 /min [facility] Respiratory rate 2019-10-02 16:58:00 19 /min [facility] Body height 2019-10-02 16:58:00 180.3 cm [facility] Body weight 2019-10-02 16:58:00 114.306 kg [facility] BMI 2019-10-02 16:58:00 35.15 kg/m2 [facility] Oxygen saturation in Arterial blood by Pulse oximetry 2019-10-02 16:58:00 98 /min [facility] Systolic blood pressure 2019-09-06 17:35:00 171 mm[Hg] [facility] Diastolic blood pressure 2019-09-06 17:35:00 86 mm[Hg] [facility] Heart rate 2019-09-06 17:35:00 64 /min [facility] Body temperature 2019-09-06 17:35:00 36.61 Nae [facility] Respiratory rate 2019-09-06 17:35:00 17 /min [facility] Oxygen saturation in Arterial blood by Pulse oximetry 2019-09-06 17:35:00 96 /min [facility] Body weight 2019-09-06 08:00:00 116.484 kg [facility] BMI 2019-09-06 08:00:00 34.83 kg/m2 [facility] Body height 2019-09-04 19:08:00 182.9 cm [facility] Procedures Procedure Date / Time Performed Performing Clinician Source XR CHEST 1 VW 2023-03-10 23:27:00 Rasheeda Riojas [facility] ASSIGNMENT OF BENEFITS 2023-03-10 23:12:34 Docto r Unassigned, [facility] PHOSPHORUS 2023-03-10 22:56:[address] [facility] MAGNESIUM 2023-03-10 22:56:[address] [facility] COMP. METABOLIC PANEL ([id number]) 2023-03-10 22:56:00 Rasheeda Riojas [facility] CBC WITH DIFF 2023-03-10 22:56:00 Rasheeda Riojas [facility] CONSENT/REFUSAL FOR DIAGNOSIS AND TREATMENT 2023-03-10 21:42:10 Doctor Unassigned, [place] [facility] AUTHORIZATION FOR RELEASE OF PHI 2023-02-28 06:01:00 Doctor Unassigned, Filley [facility] CORTISOL AM 2022-10-27 10:37:00 Javed Chu [facility] MAGNESIUM 2022-10-27 09:01:00 Catie Chris [facility] BASIC METABOLIC PANEL (NA, K, CL, CO2, GLUCOSE, BUN, CREATININE, CA) 2022-10-27 09:01:00 Catie Chris [facility] PROTEIN CREAT RATIO URINE RANDOM 2022-10-26 21:10:00 Javed Chu [facility] CREATINE KINASE 2022-10-26 20:50:00 Javed Chu [facility] URIC ACID 2022-10-26 20:50:00 Javed Chu [facility] INTACT PTH CALCIUM GROUP 2022-10-26 20:50:00 Javed Chu [facility] US RETROPERITONEAL COMPLETE 2022-10-26 20:30:00 Javed Chu [facility] TROPONIN I 2022-10-25 15:40:00 Moe [facility] TRANSTHORACIC ECHO (TTE) COMPLETE W/ CONTRAST 2022-10-25 13:31:00 [place] 2022-10-25 08:20:00 Genevieve [facility] TROPONIN I 2022-10-25 08:20:00 Genevieve [facility] BASIC METABOLIC PANEL (NA, K, CL, CO2, GLUCOSE, BUN, CREATININE, CA) 2022-10-25 08:20:00 [facility] 2022-10-25 02:47:00 [facility] PHOSPHORUS 2022-10-24 21:23:00 Genevieve [facility] TROPONIN I 2022-10-24 21:23:00 Genevieve [facility] LIPID PANEL (32029)(TOTAL CHOLESTEROL, TRIGLYCERIDES, HDL) 2022-10-24 21:23:00 Yohannes Lopez [facility] N-TERMINAL PRO-BNP 2022-10-24 21:23:00 Yohannes Lopez [facility] HB ECG ROUTINE & RHYTHM STRIP 2022-10-24 15:42:04 Anitra Yen [facility] TROPONIN I 2022-10-24 15:22:00 Anitra Yen [facility] THYROID STIMULATING HORMONE 2022-10-24 15:22:00 Genevieve [facility] COMP. METABOLIC PANEL (14619) 2022-10-24 15:22:00 Anitra Yen [facility] CBC WITH DIFF 2022-10-24 15:22:00 Anitra Yen [facility] GLYCOSYLATED HEMOGLOBIN (A1C) 2022-10-24 15:22:00 Genevieve [facility] CONSENT/REFUSAL FOR DIAGNOSIS AND TREATMENT 2022-10-24 14:22:41 Doctor Unassigned, Filley [facility] CONSENT/REFUSAL FOR DIAGNOSIS AND TREATMENT 2022-07-27 18:28:45 Doctor Unassigned, Filley [facility] HB ECG ROUTINE & RHYTHM STRIP 2022-07-15 19:10:56 Nolan Jhaveri [facility] HB ECG ROUTINE & RHYTHM STRIP 2022-07-15 19:10:56 Nolan Jhaveri [facility] ASPIRATE OR ABSCESS CULTURE(AEROBIC/ANAEROBIC ) 2022-07-15 18:40:00 Chela Treviño [facility] ASPIRATE OR ABSCESS CULTURE(AEROBIC/ANAEROBIC ) 2022-07-15 18:40:00 Chela Treviño [facility] DEBRIDEMENT LOWER EXTREMITY 2022-07-15 18:03:00 Chela Treviño [facility] MAGNESIUM 2022-07-15 10:08:00 Katina Chris [facility] BASIC METABOLIC PANEL (NA, K, CL, CO2, GLUCOSE, BUN, CREATININE, CA) 2022-07-15 10:08:00 Katina Chris [facility] LIPID PANEL ([id number])(TOTAL CHOLESTEROL, TRIGLYCERIDES, HDL) 2022-07-15 10:08:00 Katina Chris [facility] CBC WITHOUT DIFF 2022-07-15 10:08:00 Katina Chris [facility] MAGNESIUM 2022-07-15 10:08:00 Katina Chris [facility] BASIC METABOLIC PANEL (NA, K, CL, CO2, GLUCOSE, BUN, CREATININE, CA) 2022-07-15 10:08:00 Katina Chris [facility] LIPID PANEL ([id number])(TOTAL CHOLESTEROL, TRIGLYCERIDES, HDL) 2022-07-15 10:08:00 Katina Chris [facility] CBC WITHOUT DIFF 2022-07-15 10:08:00 Katina Chris [facility] URINE DRUG (IMMUNOASSAY) - COMPREHENSIVE DRUG SCREEN 2022-07-14 09:54:00 Bridgett [facility] URINE DRUG (IMMUNOASSAY) - COMPREHENSIVE DRUG SCREEN 2022-07-14 09:54:00 Bridgett [facility] BASIC METABOLIC PANEL (NA, K, CL, CO2, GLUCOSE, BUN, CREATININE, CA) 2022-07-14 09:33:00 [facility] 2022-07-14 09:33:[address] [facility] BASIC METABOLIC PANEL (NA, K, CL, CO2, GLUCOSE, BUN, CREATININE, CA) 2022-07-14 09:33:00 Juan F Boyd [facility] CBC WITH DIFF 2022-07-14 09:33:[address] [facility] XR TIBIA FIBULA 2 VW LEFT 2022-07-14 00:13:04 Izabela Combs [facility] XR TIBIA FIBULA 2 VW LEFT 2022-07-14 00:13:04 Izabela Combs [facility] BLOOD CULTURE SCREEN 2022-07-13 23:32:00 Josiah Combs [facility] COMP. METABOLIC PANEL ([id number]) 2022-07-13 23:32:00 Josiah Combs [facility] CBC WITH DIFF 2022-07-13 23:32:00 Josiah Combs [facility] LACTIC ACID WHOLE BLOOD 2022-07-13 23:32:00 Frances Combs [facility] BLOOD CULTURE SCREEN 2022-07-13 23:32:00 Josiah Combs [facility] COMP. METABOLIC PANEL (08260) 2022-07-13 23:32:00 Josiah Combs [facility] CBC WITH DIFF 2022-07-13 23:32:00 [facility] LACTIC ACID WHOLE BLOOD 2022-07-13 23:32:00 Frances Combs [facility] NOTICE OF PRIVACY PRACTICES 2022-07-13 22:34:00 Doctor Unassigned, Filley [facility] NOTICE OF PRIVACY PRACTICES 2022-07-13 22:34:00 Doctor Unassigned, Filley [facility] CONSENT/REFUSAL FOR DIAGNOSIS AND TREATMENT 2022-07-13 22:33:20 Doctor Unassigned, Filley [facility] CONSENT/REFUSAL FOR DIAGNOSIS AND TREATMENT 2022-07-13 22:33:20 Doctor Unassigned, Filley [facility] TRANSTHORACIC ECHO (TTE) COMPLETE W/ CONTRAST 2021-06-06 20:29:17 Emil Ramachandran [facility] RENAL ARTERY DUPLEX - BY VASCULAR LAB 2021-06-06 19:52:00 Emil Ramachandran [facility] BASIC METABOLIC PANEL (NA, K, CL, CO2, GLUCOSE, BUN, CREATININE, CA) 2021-06-06 10:50:00 Emil Ramachandran [facility] TROPONIN I 2021-06-05 13:29:[address] [facility] PHOSPHORUS 2021-06-05 08:37:[address] [facility] MAGNESIUM 2021-06-05 08:37:[address] [facility] TROPONIN I 2021-06-05 08:37:00 [facility] BASIC METABOLIC PANEL (NA, K, CL, CO2, GLUCOSE, BUN, CREATININE, CA) 2021-06-05 08:37:00 Emil Ramachandran [facility] CBC WITH DIFF 2021-06-05 08:37:00 Emil Ramachandran [facility] CRITICAL CARE 2021-06-04 23:17:21 Rasheeda Riojas [facility] TROPONIN I 2021-06-04 20:49:[address] [facility] URINE DRUG (IMMUNOASSAY) - COMPREHENSIVE DRUG SCREEN W/O REFLEX 2021-06-04 17:35:00 [facility] 2021-06-04 16:53:00 [facility]eda [facility] COMP. METABOLIC PANEL (21693) 2021-06-04 16:53:00 Rasheeda Riojas [facility] CBC WITH DIFF 2021-06-04 16:53:00 Rasheeda Riojas [facility] PROTHROMBIN TIME / INR 2021-06-04 16:53:00 Dannie Riojas [facility] ACTIVATED PARTIAL THRMPLAS BRITTNEY 2021-06-04 16:53:00 Rasheeda Riojas [facility] N-TERMINAL PRO-BNP 2021-06-04 16:53:00 Rasheeda Riojas [facility] HB ECG ROUTINE & RHYTHM STRIP 2021-06-04 16:51:06 Rasheeda Riojas [facility] CONSENT/REFUSAL FOR DIAGNOSIS AND TREATMENT 2021-06-04 16:42:16 Doctor Unassigned, Filley [facility] NOTICE OF PRIVACY PRACTICES 2020-07-08 17:59:10 Doctor Unassigned, Filley [facility] CONSENT/REFUSAL FOR DIAGNOSIS AND TREATMENT 2020-07-08 17:54:43 Doctor Unassigned, Filley [facility] MAGNESIUM 2020-06-03 11:39:00 Cristopher Larry [facility] BASIC METABOLIC PANEL (NA, K, CL, CO2, GLUCOSE, BUN, CREATININE, CA) 2020-06-03 11:39:00 Cristopher Larry [facility] CBC WITH DIFF 2020-06-03 11:38:00 Cristopher Larry [facility] TRANSTHORACIC ECHO (TTE) COMPLETE 2020-06-02 20:23:05 [facility] 2020-06-02 11:36:00 Antwan Bell [facility] ACTIVATED PARTIAL THRMPLAS BRITTNEY 2020-06-02 11:35:00 Adrien [facility] ACTIVATED PARTIAL THRMPLAS BRITTNEY 2020-06-02 05:36:00 Katey Jurado [facility] MAGNESIUM 2020-06-02 05:35:00 Antwan Bell [facility] TROPONIN I 2020-06-02 05:35:00 Antwan Bell [facility] BASIC METABOLIC PANEL (NA, K, CL, CO2, GLUCOSE, BUN, CREATININE, CA) 2020-06-02 05:35:00 Antwan Bell [facility] PHOSPHORUS 2020-06-01 23:16:00 Antwan Bell [facility] TROPONIN I 2020-06-01 23:16:00 Antwan Bell [facility] THYROID STIMULATING HORMONE 2020-06-01 23:16:00 Bell, [facility] LIPID PANEL ([id number])(TOTAL CHOLESTEROL, TRIGLYCERIDES, HDL) 2020-06-01 22:05:00 Ray [facility] GLYCOSYLATED HEMOGLOBIN (A1C) 2020-06-01 22:05:00 Ray [facility] CRITICAL CARE 2020-06-01 21:08[facility]MUNOASSAY[facility] - 4 ER PANEL 2020-06-01 19:25:00 Rasheeda Riojas [facility] XR CHEST 1 VW 2020-06-01 16:54:29 Rasheeda Riojas [facility] HB ECG ROUTINE & RHYTHM STRIP 2020-06-01 16:39:04 [facility] 2020-06-01 16:36:[address] [facility] HEPATIC FUNCTION PANEL (22170) (ALB,T.PRO,BILI T,BU/BC,ALT,AST,ALK PHOS) 2020-06-01 16:36:00 [facility] BASIC METABOLIC PANEL (NA, K, CL, CO2, GLUCOSE, BUN, CREATININE, CA) 2020-06-01 16:36:00 [facility] CBC WITH DIFF 2020-06-01 16:36:00 Rasheeda Riojas [facility] PROTHROMBIN TIME / INR 2020-06-01 16:36:00 Dannie Riojas [facility] ACTIVATED PARTIAL THRMPLAS BRITTNEY 2020-06-01 16:36:00 Rasheeda Riojas [facility] N-TERMINAL PRO-BNP 2020-06-01 16:36:00 Shine Rasheeda [facility] COVID-19 (ID NOW RAPID TESTING) 2020-06-01 16:36:00 Rasheeda Riojas [facility] LAB ONLY COVID INTERPRETATION 2020-06-01 16:36:00 Shine Rasheeda [facility] NOTICE OF PRIVACY PRACTICES 2020-06-01 16:09:18 Doctor Unassigned, Filley [facility] CONSENT/REFUSAL FOR DIAGNOSIS AND TREATMENT 2020-06-01 16:06:36 Doctor Unassigned, Filley [facility] AGREEMENTS AUTHORIZATIONS AND IRREVOCABLE ASSIGNMENTS (FORM 2001) 2020-06-01 05:01:00 Doctor Unassigned, Filley [facility] PHYSICIAN ORDERS 2019-10-02 05:01:00 Doctor Unas signed, Filley [facility] BASIC METABOLIC PANEL (NA, K, CL, CO2, GLUCOSE, BUN, CREATININE, CA) 2019-09-06 09:13:00 Ashlee Levin [facility] CBC WITH DIFF 2019-09-06 09:13:00 Ashlee Levin [facility] CAROTID DUPLEX BILATERAL BY VASCULAR LAB 2019-09-05 21:08:50 Emil Ramachandran [facility] ECHO ROUTINE W/DOPPLER COLOR 2019-09-05 15:46:43 Ashlee Levin [facility] CT HEAD WO CONTRAST 2019-09-05 13:59:23 Juan F Boyd [facility] INTACT PTH CALCIUM GROUP 2019-09-05 13:33:00 Javed Chu [facility] URINALYSIS 2019-09-05 13:33:00 Javed Chu [facility] CREATININE, URINE RANDOM 2019-09-05 13:33:00 Javed Chu [facility] TOTAL PROTEIN, URINE RANDOM 2019-09-05 13:33:00 Javed Chu [facility] CREATINE KINASE 2019-09-05 10:32:00 Javed Chu [facility] URIC ACID 2019-09-05 10:32:00 Javed Chu [facility] TROPONIN I 2019-09-05 10:32:00 Ashlee Levin [facility] BASIC METABOLIC PANEL (NA, K, CL, CO2, GLUCOSE, BUN, CREATININE, CA) 2019-09-05 10:32:00 Ashlee Levin [facility] CBC WITH DIFF 2019-09-05 10:32:00 Ashlee Levin [facility] ACTIVATED PARTIAL THRMPLAS BRITTNEY 2019-09-05 10:32:00 Juan F Boyd [facility] TROPONIN I 2019-09-05 04:27:00 Ashlee Levin [facility] ACTIVATED PARTIAL THRMPLAS BRITTNEY 2019-09-05 04:26:00 Juan F Boyd [facility] COVID-19 (ID NOW RAPID TESTING) 2019-09-04 22:39:00 Navarro Cat [facility] CT ANGIOGRAM CHEST 2019-09-04 21:27:13 Navarro Cat [facility] CT HEAD WO CONTRAST 2019-09-04 19:51:25 Jael Cat [facility] URINALYSIS 2019-09-04 19:45:00 Navarro Cat [facility] ADC / LCC - DRUG SCREEN TRIAGE 2019-09-04 19:45:00 Navarro Cat [facility] TROPONIN I 2019-09-04 19:33:00 Navarro Cat [facility] THYROID STIMULATING HORMONE 2019-09-04 19:33:00 Ashlee Levin [facility] COMP. METABOLIC PANEL (54423) 2019-09-04 19:33:00 Singer [facility] LIPID PANEL (12621)(TOTAL CHOLESTEROL, TRIGLYCERIDES, HDL) 2019-09-04 19:33:00 Singer Navarro [facility] CBC WITH DIFF 2019-09-04 19:33:00 Navarro Cat [facility] GLYCOSYLATED HEMOGLOBIN (A1C) 2019-09-04 19:33:00 Singer Navarro [facility] EKG-12 LEAD 2019-09-04 19:13:59 Navarro Cat [facility] NOTICE OF PRIVACY PRACTICES 2019-09-04 18:59:24 Doctor Unassigned, Filley [facility] Encounters Start Date/Time End Date/Time Encounter Type Admission Type Attending Clinicians Care Facility Care Department Encounter ID Source 2020-12-12 21:45:14 Emergency [facility] [id number] [facility] 2020-12-12 14:04:44 Emergency [facility] [id number] [facility] 2020-12-10 08:27:32 Emergency [facility] [id number] [facility] 2023-03-10 15:55:00 2023-03-10 19:31:00 Emergency X RASHEEDA RIOJAS [facility] ERT [id number] [facility] 2023-03-10 15:55:00 2023-03-10 19:31:00 Emergency Rasheeda Riojas [facility] [id number] 350.1.13.10 4.2.7.2.686 [id number] [facility] 2023-02-28 00:00:00 2023-02-28 00:00:00 Orders Only Doctor Unassigned, Filley [facility] 1.2.840.114 350.1.13.10 4.2.7.2.686 [id number] [facility] 2023-01-29 11:37:19 2023-01-29 11:37:19 Outpatient [facility] [id number] Sae Tavera 2022-10-30 00:00:00 2022-10-30 00:00:00 Telephone Yohannes Lopez [facility] 1.2.840.114 350.1.13.10 4.2.7.2.686 [id number] [facility] 2022-10-24 09:33:00 2022-10-27 18:46:00 [facility] [id number] 2022-10-24 09:33:00 2022-10-27 18:46:00 Emergency Farshad Moe Mena [facility] 1.2.840.114 350.1.13.10 4.2.7.2.686 [id number] [facility] 2022-09-21 13:20:00 2022-09-21 13:20:00 Outpatient R CADEN HANNA [facility] [id number] [facility] 2022-08-01 16:30:00 2022-08-01 16:30:00 Outpatient R CHELA TREVIÑO [facility] [id number] [facility] 2022-07-27 13:30:00 2022-07-27 13:30:00 Outpatient R PHILLIP PATEL [facility] [id number] Lois emmanuel [facility] 2022-07-27 00:00:00 2022-07-27 00:00:00 Orders Only Doctor Unassigned, Filley [facility] 1.840.114 350.1.13.10 4.2.7.2.686 [id number] [facility] 2022-07-24 15:00:00 2022-07-24 15:00:00 Outpatient R CARLOS GUZMAN OGECHUKWU [facility] [id number] [facility] 2022-07-18 00:00:00 2022-07-18 00:00:00 Transition of Care Alyssa Dawson 1.84.114 350.1.13.10 4.2.7.2.686 [id number] [facility] 2022-07-13 17:59:00 2022-07-16 15:46:00 Inpatient X MOE VALLEJO [facility] [id number] [facility] 2022-07-13 17:59:00 2022-07-16 15:46:00 Hospital Encounter Josiah Combs Jelani Edionwe[facility] 1.84.114 350.1.13.10 4.2.7.2.686 [id number] [facility] 2022-07-15 13:30:00 2022-07-15 14:44:00 Surgery Chela Treviño [facility] [id number] 350.1.13.10 4.2.7.2.686 [id number] [facility] 2021-06-07 00:00:00 2021-06-07 00:00:00 Transition of Care Alyssa Dawson SANDR[facility] 1.2.840.114 350.1.13.10 4.2.7.2.686 [id number] [facility] 2021-06-04 11:38:00 2021-06-06 17:30:00 Inpatient EMIL BYNUM [facility] AILYN [id number] [facility] 2021-06-04 11:38:00 2021-06-06 17:30:00 Hospital Encounter Rasheeda Riojas AlexandrumalikaEmil [facility] 1.2.840.114 350.1.13.10 4.2.7.2.686 [id number] [facility] 2020-08-17 00:00:00 2020-08-17 00:00:00 Patient Outreach Cheryl Russelloscar Otto 1.2.840.114 350.1.13.10 4.2.7.2.686 [id number] [facility] 2020-07-08 13:00:00 2020-07-08 13:36:00 Emergency Navarro Cat [facility] 1.2.840.114 350.1.13.10 4.2.7.2.686 [id number] [facility] 2020-07-05 11:30:00 2020-07-05 11:49:05 Outpatient BARBIE SEPULVEDA [facility] [id number] [facility] 2020-06-07 00:00:00 2020-06-07 00:00:00 Patient Outreach Cheryl Russelloscar Otto 1.2.840.114 350.1.13.10 4.2.7.2.686 [id number] [facility] 2020-06-05 11:15:00 2020-06-05 11:15:00 Outpatient BRYAN ESCALANTE [facility] [id number] [facility] 2020-06-04 00:00:00 2020-06-04 00:00:00 Transition of Care Alyssa Dawson 1.2.840.114 350.1.13.10 4.2.7.2.686 [id number] [facility] 2020-06-01 11:17:00 2020-06-03 16:40:00 Emergency Riojas, Rasheeda Hendrix, Natanael Dee h, [facility] 1.20.114 350.1.13.10 4.2.7.2.686 [id number] [facility] 2020-06-01 00:00:00 2020-06-01 00:00:00 Orders Only Doctor Unassigned, Filley [facility] 1.20.114 350.1.13.10 4.2.7.2.686 [id number] [facility] 2019-10-30 15:30:00 2019-10-30 15:30:00 Outpatient YOHANNES GREENE [facility] [id number] [facility] 2019-10-10 00:00:00 2019-10-10 00:00:00 Patient Outreach Nori Elias [facility] 1.2.840.114 350.1.13.10 4.2.7.2.686 [id number] [facility] 2019-10-10 00:00:00 2019-10-10 00:00:00 Patient Outreach Nori Elias [facility] 1.2.840.114 350.1.13.10 4.2.7.2.686 [id number] 2019-10-02 11:53:41 2019-10-02 12:26:55 Office Visit Yohannes Lopez [facility] 1.2.840.114 350.1.13.10 4.2.7.2.686 [id number] [facility] 2019-10-02 11:53:41 2019-10-02 12:26:55 Office Visit Yohannes Lopez [facility] 1.2.840.114 350.1.13.10 4.2.7.2.686 [id number] 2019-10-02 11:00:00 2019-10-02 11:00:00 Outpatient R YOHANNES LOPEZ [facility] [id number] [facility] 2019-10-02 00:00:00 2019-10-02 00:00:00 Orders Only Doctor Unassigned, Filley [facility] 1.2.840.114 350.1.13.10 4.2.7.2.686 [id number] [facility] 2019-10-02 00:00:00 2019-10-02 00:00:00 Orders Only Doctor Unassigned, Filley [facility] 1.2.840.114 350.1.13.10 4.2.7.2.686 [id number] 2019-09-29 00:00:00 2019-09-29 00:00:00 Telephone Yohannes Lopez [facility] 1.2.840.114 350.1.13.10 4.2.7.2.686 [id number] [facility] 2019-09-08 00:00:00 2019-09-08 00:00:00 Transition of Care Alyssa Dawson 1.2.840.114 350.1.13.10 4.2.7.2.686 [id number] [facility] 2019-09-04 14:00:49 2019-09-06 16:49:00 Hospital Encounter Navarro Cat Yaman [facility] 1.2.840.114 350.1.13.10 4.2.7.2.686 [id number] [facility] Results Test Description Test Time Test Comments Results Resul t Comments Source XR CHEST 1 VW 2023-03-11 00:28:41 ORDERING PROVIDER: ELLEN RIOJAS HISTORY: pulmonary edema TECHNIQUE: Frontal views of the Chest. [facility]59* Test Item Value Reference Range Interpretation Comme nts MAGNESIUM (test code = 3588909949) 2.1 mg/dL 1.7-2.4 Lab Interpretation (test cod e = 51344-0) [facility] (NA, K, CL, CO2, GLUCOSE, BUN, CREATININE, CA)2022-10-27 10:24:44* Test Item Value Reference Range Interpretation Comme nts NA (test code = 9290454864) 137 mmol/L 135-145 K (test code = 4508870272) 4.1 mmol/L 3.5-5.0 CL (test code = 5116194979) 108 mmol/L 98-108 CO2 TOTAL (test code = 1775630399) 23 mmol/L 23-31 AGAP (test code = 1870088001) 6 2-16 BUN (test code = 8266094775) 49 mg/dL 7-23 H GLUCOSE (test code = 4151027427) 98 mg/dL 70-110 CREATININE (test code = 3679932398) 3.80 mg/dL 0.60-1.25 H CALCIUM (test code = 5754558248) 8.8 mg/dL 8.6-10.6 eGFR (test code = 6123036575) 16.2 mL/min/1.73m2 VLAD (test code = VLAD) Association of Glomerular Filtration Rate (GFR) and Staging of Kidney Disease* + --+ --+ ------+| GFR (mL/min/1.73 m2) ?| With Kidney Damage ?| ?Without Kidney Damage+ --------+ --------+ +| ?>90 ?| ?Stage one ?| ? Normal ?+ ---+ ---+ -------+| ?60-89 ?| ?Stage two ?| ? Decreased GFR ? + --+ --+ ------+| ?30-59 ?| ?Stage three ?| ? Stage three ? + --+ --+ ------+| ?15-29 ?| ?Stage four ? | ? Stage four ?+ ---+ ---+ -------+| ?<15 (or dialysis) ? ?| ?Stage five ? | ? Stage five ?+ ---+ ---+ -------+ *Each stage assumes the associated GFR level has been in effect for at least three months. ?Stages 1 to 5, with or without kidney disease, indicate chronic kidney disease. Notes: Determination of stages one and two (with eGFR >59mL/min/1.73 m2) requires estimation of kidney damage for at least three months as defined by structural or functional abnormalities of the kidney, manifested by either:Pathological abnormalities or Markers of kidney damage (including abnormalities in the composition of the blood or urine or abnormalities in imaging tests). Lab Interpretation (test code = 80422-6) [facility] [id number] 09:27:25* Test Item Value Reference Range Interpretation Comme nts TROPONIN I (test code = 2938507285) 0.073 ng/mL <=0.034 H VLAD (test code = VLAD) Reference (Normal) Range (defined by the 99th percentile reference limit): <= 0.034 ng/mL Note: Cardiac troponin begins to rise 3-4 hours after the onset of ischemia. Repeat in 4-6 hours if the sample was drawn within 3-4 hours of the onset of the symptom and found normal. Diagnosis of myocardial injury is made with acute changes in cTn concentrations with at least one serial sample above the 99th percentile upper reference limit (URL), taken together with the patient's clinical presentation. Biotin has been reported to cause a negative bias, interpret results relative to patient's use of biotin. Lab Interpretation (test code = 38488-5) [facility] (NA, K, CL, CO2, GLUCOSE, BUN, CREATININE, CA)2022-10-25 09:07:46* Test Item Value Reference Range Interpretation Comme nts NA (test code = 2432619838) 139 mmol/L 135-145 K (test code = 3595685615) 3.9 mmol/L 3.5-5.0 CL (test code = 7439471320) 109 mmol/L 98-108 H CO2 TOTAL (test code = 7019772187) 24 mmol/L 23-31 AGAP (test code = 5308603489) 6 2-16 BUN (test code = 8954342106) 42 mg/dL 7-23 H GLUCOSE (test code = 0550777790) 88 mg/dL 70-110 CREATININE (test code = 0504594362) 3.38 mg/dL 0.60-1.25 H CALCIUM (test code = 1996808860) 8.6 mg/dL 8.6-10.6 eGFR (test code = 1490655392) 18.6 mL/min/1.73m2 VLAD (test code = VLAD) Association of Glomerular Filtration Rate (GFR) and Staging of Kidney Disease* + --+ --+ ------+| GFR (mL/min/1.73 m2) ?| With Kidney Damage ?| ?Without Kidney Damage+ --------+ --------+ +| ?>90 ?| ?Stage one ?| ? Normal ?+ ---+ ---+ -------+| ?60-89 ?| ?Stage two ?| ? Decreased GFR ? + --+ --+ ------+| ?30-59 ?| ?Stage three ?| ? Stage three ? + --+ --+ ------+| ?15-29 ?| ?Stage four ? | ? Stage four ?+ ---+ ---+ -------+| ?<15 (or dialysis) ? ?| ?Stage five ? | ? Stage five ?+ ---+ ---+ -------+ *Each stage assumes the associated GFR level has been in effect for at least three months. ?Stages 1 to 5, with or without kidney disease, indicate chronic kidney disease. Notes: Determination of stages one and two (with eGFR >59mL/min/1.73 m2) requires estimation of kidney damage for at least three months as defined by structural or functional abnormalities of the kidney, manifested by either:Pathological abnormalities or Markers of kidney damage (including abnormalities in the composition of the blood or urine or abnormalities in imaging tests). Lab Interpretation (test code = 98006-8) [facility]normal [facility]leMagnesium [id number] 09:07:46* Test Item Value Reference Range Interpretation Comme nts MAGNESIUM (test code = 2730486388) 2.0 mg/dL 1.7-2.4 Lab Interpretation (test cod e = 12576-8) Normal [facility] [id number] 03:54:28* Test Item Value Reference Range Interpretation Comme nts TROPONIN I (test code = 9898796430) 0.065 ng/mL <=0.034 H VLAD (test code = VLAD) Reference (Normal) Range (defined by the 99th percentile reference limit): <= 0.034 ng/mL Note: Cardiac troponin begins to rise 3-4 hours after the onset of ischemia. Repeat in 4-6 hours if the sample was drawn within 3-4 hours of the onset of the symptom and found normal. Diagnosis of myocardial injury is made with acute changes in cTn concentrations with at least one serial sample above the 99th percentile upper reference limit (URL), taken together with the patient's clinical presentation. Biotin has been reported to cause a negative bias, interpret results relative to patient's use of biotin. Lab Interpretation (test code = 13885-8) [facility]normal [facility]le[facility] Whole [id number] 23:43:00* Test Item Value Reference Range Interpretation Comme nts LACTIC ACID (test code = 6127215300) 1.48 mmol/L 0.50-2.20 Lab Interpretation (test cod e = 36424-4) Normal [facility]le[facility] Whole [id number] 23:43:00* Test Item Value Reference Range Interpretation Comme nts LACTIC ACID (test code = 8322613530) 1.48 mmol/L 0.50-2.20 Lab Interpretation (test cod e = 35845-5) Normal [facility]an[facility] (TTE)2021-06-06 21:38:24* Test Item Value Reference Range Interpretation Comme nts LVIDD (test code = 7320856233) 4.80 cm IVS (test code = 0180974140) 1.72 cm Interventricular Septum Diastolic Thickness by 2D (test code = 2710517) 1.72 cm LVPWD (test code = 6362790909) 1.72 cm PW (test code = 0220391587) 1.72 cm 0.6-1.1 EF(Teich) (test code = 3382119648) 67.20 % LVIDS (test code = 0491062016) 3.00 cm FS (test code = 8244954338) 37 % EF - 2D (test code = 02356777) 67.20 % Ao root annulus (test code = 5809108020) 3.5 cm Ao root diam (test code = 5127564105) 3.50 cm Aortic root (test code = 2670578623) 3.5 cm LA size (test code = 5889472075) 4.7 cm LAV(MOD-sp4) (test code = 5440544356) 71.50 mL MV Prop V (test code = 0434004653) 36.90 cm/s E wave decelartion time (test code = 9315463127) 0.27 s MV Peak E Naun (test code = 4813017675) 91.1 cm/s MV Peak A Naun (test code = 5565584773) 124.7 cm/s E/A ratio (test code = 4519830439) ratio MV E/e' septal (test code = 4425976632) 4.3 cm/s Tapse (test code = 3492456452) 2.09 cm Ao peak naun (test code = 4504896445) 191.1 cm/s Ao max PG (test code = 0046066765) 14.90 mm[Hg] AV peak gradient (test code = 1901620636) mmHg Aortic valve mean velocity (test code = 3210100256) 128.5 cm/s Ao VTI (test code = 0728182459) 30.8 cm AV mean gradient (test code = 8596030164) mmHg LA volume (BP) (test code = 0683520487) 82.1 mL LAV(MOD-sp2) (test code = 6108439247) 91.40 mL Radiology Study observation (narrative) (test code = 36126-6) VLAD (test code = VLAD) ?Left?Ventricle: Left ventricle size is normal. Moderately increased wall thickness. Normal wall motion. Hyperdynamic systolic function with a visually estimated EF of 65 - 70%. There is impaired relaxation. ?Tricuspid?Valve: Insufficient regurgant jet to estimate RVSP. ?RA pressure is 0-5 mmHg. VitalsHeight Weight BSA (Calculated - sq m) BP Pulse 5' 11" (1.803 m) 248 lb (112.5 kg) 2.37 sq meters 184/102 78 [facility]le[facility] (NA, K, CL, CO2, GLUCOSE, BUN, CREATININE, CA)2021-06-06 12:00:39* Test Item Value Reference Range Interpretation Comme nts NA (test code = 9022922404) 138 mmol/L 135-145 K (test code = 8815109862) 4.1 mmol/L 3.5-5.0 CL (test code = 0004051507) 107 mmol/L 98-108 CO2 TOTAL (test code = 9576265836) 24 mmol/L 23-31 AGAP (test code = 9091212084) 2-16 BUN (test code = 8878855885) 42 mg/dL 7-23 H GLUCOSE (test code = 8777552769) 114 mg/dL 70-110 H CREATININE (test code = 8686334448) 2.90 mg/dL 0.60-1.25 H CALCIUM (test code = 1637664723) 8.9 mg/dL 8.6-10.6 eGFR (test code = 7192164569) mL/min/1.73m2 VLAD (test code = VLAD) Association of Glomerular Filtration Rate (GFR) and Staging of Kidney Disease* + --+ --+ ------+| GFR (mL/min/1.73 m2) ?| With Kidney Damage ?| ?Without Kidney Damage+ --------+ --------+ +| ?>90 ?| ?Stage one ?| ? Normal ?+ ---+ ---+ -------+| ?60-89 ?| ?Stage two ?| ? Decreased GFR ? + --+ --+ ------+| ?30-59 ?| ?Stage three ?| ? Stage three ? + --+ --+ ------+| ?15-29 ?| ?Stage four ? | ? Stage four ?+ ---+ ---+ -------+| ?<15 (or dialysis) ? ?| ?Stage five ? | ? Stage five ?+ ---+ ---+ -------+ *Each stage assumes the associated GFR level has been in effect for at least three months. ?Stages 1 to 5, with or without kidney disease, indicate chronic kidney disease. Notes: Determination of stages one and two (with eGFR >59mL/min/1.73 m2) requires estimation of kidney damage for at least three months as defined by structural or functional abnormalities of the kidney, manifested by either:Pathological abnormalities or Markers of kidney damage (including abnormalities in the composition of the blood or urine or abnormalities in imaging tests). Lab Interpretation (test code = 35283-9) Abnormal [facility] [id number] 14:17:20* Test Item Value Reference Range Interpretation Comments TROPONIN I (test code = 1500911248) 0.132 ng/mL See_Comment H [Automated message] The system which generated this result transmitted reference range: <=0.034. The reference range was not used to interpret this result as normal/abnormal. VLAD (test code = VLAD) Reference (Normal) Range (defined by the 99th percentile reference limit): <= 0.034 ng/mL Note: Cardiac troponin begins to rise 3-4 hours after the onset of ischemia. Repeat in 4-6 hours if the sample was drawn within 3-4 hours of the onset of the symptom and found normal. Diagnosis of myocardial injury is made with acute changes in cTn concentrations with at least one serial sample above the 99th percentile upper reference limit (URL), taken together with the patient's clinical presentation. Biotin has been reported to cause a negative bias, interpret results relative to patient's use of biotin. Lab Interpretation (test code = 31051-1) Abnormal [facility] [id number] 09:42:43* Test Item Value Reference Range Interpretation Comments TROPONIN I (test code = 8393839961) 0.122 ng/mL See_Comment H [Automated message] The system which generated this result transmitted reference range: <=0.034. The reference range was not used to interpret this result as normal/abnormal. VLAD (test code = VLAD) Reference (Normal) Range (defined by the 99th percentile reference limit): <= 0.034 ng/mL Note: Cardiac troponin begins to rise 3-4 hours after the onset of ischemia. Repeat in 4-6 hours if the sample was drawn within 3-4 hours of the onset of the symptom and found normal. Diagnosis of myocardial injury is made with acute changes in cTn concentrations with at least one serial sample above the 99th percentile upper reference limit (URL), taken together with the patient's clinical presentation. Biotin has been reported to cause a negative bias, interpret results relative to patient's use of biotin. Lab Interpretation (test code = 43178-4) [facility]normal [facility]2022-04-24 09:32:20* Test Item Value Reference Range Interpretation Comme nts MAGNESIUM (test code = 2631522078) 2.0 mg/dL 1.7-2.4 Lab Interpretation (test cod e = 40659-9) Normal [facility] (NA, K, CL, CO2, GLUCOSE, BUN, CREATININE, CA)2021-06-05 09:32:00* Test Item Value Reference Range Interpretation Comme nts NA (test code = 6368542881) 137 mmol/L 135-145 K (test code = 4143899018) 4.1 mmol/L 3.5-5.0 CL (test code = 5755579337) 105 mmol/L 98-108 CO2 TOTAL (test code = 1645072674) 25 mmol/L 23-31 AGAP (test code = 2992913641) 2-16 BUN (test code = 2482120695) 36 mg/dL 7-23 H GLUCOSE (test code = 5878163583) 132 mg/dL 70-110 H CREATININE (test code = 7119235795) 2.68 mg/dL 0.60-1.25 H CALCIUM (test code = 9373631275) 9.1 mg/dL 8.6-10.6 eGFR (test code = 0555046569) mL/min/1.73m2 VLAD (test code = VLAD) Association of Glomerular Filtration Rate (GFR) and Staging of Kidney Disease* + --+ --+ ------+| GFR (mL/min/1.73 m2) ?| With Kidney Damage ?| ?Without Kidney Damage+ --------+ --------+ +| ?>90 ?| ?Stage one ?| ? Normal ?+ ---+ ---+ -------+| ?60-89 ?| ?Stage two ?| ? Decreased GFR ? + --+ --+ ------+| ?30-59 ?| ?Stage three ?| ? Stage three ? + --+ --+ ------+| ?15-29 ?| ?Stage four ? | ? Stage four ?+ ---+ ---+ -------+| ?<15 (or dialysis) ? ?| ?Stage five ? | ? Stage five ?+ ---+ ---+ -------+ *Each stage assumes the associated GFR level has been in effect for at least three months. ?Stages 1 to 5, with or without kidney disease, indicate chronic kidney disease. Notes: Determination of stages one and two (with eGFR >59mL/min/1.73 m2) requires estimation of kidney damage for at least three months as defined by structural or functional abnormalities of the kidney, manifested by either:Pathological abnormalities or Markers of kidney damage (including abnormalities in the composition of the blood or urine or abnormalities in imaging tests). Lab Interpretation (test code = 99952-0) [facility]normal [facility]2022-04-24 09:32:00* Test Item Value Reference Range Interpretation Comme nts PHOSPHORUS (test code = 2670655400) 3.3 mg/dL 2.5-5.0 Lab Interpretation (test cod e = 48804-5) Normal [facility] WITH [id number] 08:57:19* Test Item Value Reference Range Interpretation Comme nts WBC (test code = 6690-2) See_Comment [Automated [employer]] The system which generated this result transmitted reference range: 4.20 - 10.70 10*3/?L. The reference range was not used to interpret this result as normal/abnormal. RBC (test code = 789-8) See_Comment [Automated [employer]] The system which generated this result transmitted reference range: 4.26 - 5.52 10*6/?L. The reference range was not used to interpret this result as normal/abnormal. HGB (test code = 718-7) 14.8 g/dL 12.2-16.4 HCT (test code = 4544-3) 45.3 % 38.4-49.3 MCV (test code = 787-2) 84.4 fL 81.7-95.6 MCH (test code = 785-6) 27.6 pg 26.1-32.7 MCHC (test code = 786-4) 32.7 g/dL 31.2-35.0 RDW-SD (test code = 03825-8) 39.6 fL 38.5-51.6 RDW-CV (test code = 788-0) 13.0 % 12.1-15.4 PLT (test code = 777-3) See_Comment [Automated messa ge] The system which generated this result transmitted reference range: 150 - 328 10*3/?L. The reference range was not used to interpret this result as normal/abnormal. MPV (test code = 26538-2) 10.5 fL 9.8-13.0 NRBC/100 WBC (test code = 5321121828) See_Comment [Automated me ssage] The system which generated this result transmitted reference range: 0.0 - 10.0 /100 WBCs. The reference range was not used to interpret this result as normal/abnormal. NRBC x10^3 (test code = 9081462097) <0.01 See_Comment [Automated me ssage] The system which generated this result transmitted reference range: 10*3/?L. The reference range was not used to interpret this result as normal/abnormal. GRAN MAT (NEUT) % (test code = 770-8) 61.4 % IMM GRAN % (test code = 2481771296) 0.20 % LYMPH % (test code = 736-9) 27.4 % MONO % (test code = 5905-5) 7.9 % EOS % (test code = 713-8) 2.5 % BASO % (test code = 706-2) 0.6 % GRAN MAT x10^3(ANC) (test code = 7398968702) 2.96 10*3/uL 1.99-6.95 IMM GRAN x10^3 (test code = 2188749768) <0.03 0.00-0.06 LYMPH x10^3 (test code = 731-0) 1.32 10*3/uL 1.09-3.23 MONO x10^3 (test code = 742-7) 0.38 10*3/uL 0.36-1.02 EOS x10^3 (test code = 711-2) 0.12 10*3/uL 0.06-0.53 BASO x10^3 (test code = 704-7) 0.03 10*3/uL 0.01-0.09 [facility] [id number] 23:16:30* Test Item Value Reference Range Interpretation Comments TROPONIN I (test code = 3005158400) 0.072 ng/mL See_Comment H [Automated message] The system which generated this result transmitted reference range: <=0.034. The reference range was not used to interpret this result as normal/abnormal. VLAD (test code = VLAD) Reference (Normal) Range (defined by the 99th percentile reference limit): <= 0.034 ng/mL Note: Cardiac troponin begins to rise 3-4 hours after the onset of ischemia. Repeat in 4-6 hours if the sample was drawn within 3-4 hours of the onset of the symptom and found normal. Diagnosis of myocardial injury is made with acute changes in cTn concentrations with at least one serial sample above the 99th percentile upper reference limit (URL), taken together with the patient's clinical presentation. Biotin has been reported to cause a negative bias, interpret results relative to patient's use of biotin. Lab Interpretation (test code = 91447-6) Abnormal [facility] [id number] 18:12:15* Test Item Value Reference Range Interpretation Comments TROPONIN I (test code = 4217020570) 0.069 ng/mL See_Comment H [Automated message] The system which generated this result transmitted reference range: <=0.034. The reference range was not used to interpret this result as normal/abnormal. VLAD (test code = VLAD) Reference (Normal) Range (defined by the 99th percentile reference limit): <= 0.034 ng/mL Note: Cardiac troponin begins to rise 3-4 hours after the onset of ischemia. Repeat in 4-6 hours if the sample was drawn within 3-4 hours of the onset of the symptom and found normal. Diagnosis of myocardial injury is made with acute changes in cTn concentrations with at least one serial sample above the 99th percentile upper reference limit (URL), taken together with the patient's clinical presentation. Biotin has been reported to cause a negative bias, interpret results relative to patient's use of biotin. Lab Interpretation (test code = 92565-7) [facility]normal [facility] EGN-[id number] 18:09:14* Test Item Value Reference Range Interpretation Comme [facility] NT-proBNP (test code = 6838740670) 989 pg/mL See_Comment H [Automated message] The system which generated this result transmitted reference range: <=125. The reference range was not used to interpret this result as normal/abnormal. VLAD (test code = VLAD) Biotin has been reported to cause a negative bias, interpret results relative to patient's use of biotin. Lab Interpretation (test code = 93059-2) Abnormal [facility]leACTIVATED PARTIAL THRMPLAS [id number] 18:07:14* Test Item Value Reference Range Interpretation Comme nts APTT Patient (test code = 3173-2) See_Comment [Automated message] The system which generated this result transmitted reference range: 23 - 38 Seconds. The reference range was not used to interpret this result as normal/abnormal. VLAD (test code = VLAD) The [facility] patient population mean normal value for aPTT is 30 seconds. Lab Interpretation (test code = 54326-8) Normal [facility]lePROTHROMBIN TIME / [id number] 18:05:13* Test Item Value Reference Range Interpretation Comme nts PROTIME PATIENT (test code = 5964-2) See_Comment [Automated messa ge] The system which generated this result transmitted reference range: 12.0 - 14.7 Seconds. The reference range was not used to interpret this result as normal/abnormal. INR (test code = 6301-6) Normal INR <1.1; Warfarin Therapeutic range 2.0 to 3.0 or 2.5 to 3.5, depending upon the indications. Lab Interpretation (test code = 08416-0) Normal [facility]leCOMP[facility] METABOLIC PANEL (89526)2021-06-04 18:04:33* Test Item Value Reference Range Interpretation Comme nts NA (test code = 8647379087) 138 mmol/L 135-145 K (test code = 1320558770) 4.5 mmol/L 3.5-5.0 CL (test code = 3754500774) 104 mmol/L 98-108 CO2 TOTAL (test code = 4426470245) 26 mmol/L 23-31 AGAP (test code = 1786280149) 2-16 BUN (test code = 1806858116) 33 mg/dL 7-23 H GLUCOSE (test code = 6493911762) 100 mg/dL 70-110 CREATININE (test code = 8708366292) 2.75 mg/dL 0.60-1.25 H TOTAL BILI (test code = 1870016243) 0.7 mg/dL 0.1-1.1 CALCIUM (test code = 9482540005) 9.5 mg/dL 8.6-10.6 T PROTEIN (test code = 9816486412) 7.1 g/dL 6.3-8.2 ALBUMIN (test code = 6019232959) 4.2 g/dL 3.5-5.0 ALK PHOS (test code = 5372398949) 82 U/L 34-122 ALTv (test code = 1742-6) 23 U/L 5-50 AST(SGOT) (test code = 2365392607) 25 U/L 13-40 eGFR (test code = 6741677270) mL/min/1.73m2 VLAD (test code = VLAD) Association of Glomerular Filtration Rate (GFR) and Staging of Kidney Disease* + --+ --+ ------+| GFR (mL/min/1.73 m2) ?| With Kidney Damage ?| ?Without Kidney Damage+ --------+ --------+ +| ?>90 ?| ?Stage one ?| ? Normal ?+ ---+ ---+ -------+| ?60-89 ?| ?Stage two ?| ? Decreased GFR ? + --+ --+ ------+| ?30-59 ?| ?Stage three ?| ? Stage three ? + --+ --+ ------+| ?15-29 ?| ?Stage four ? | ? Stage four ?+ ---+ ---+ -------+| ?<15 (or dialysis) ? ?| ?Stage five ? | ? Stage five ?+ ---+ ---+ -------+ *Each stage assumes the associated GFR level has been in effect for at least three months. ?Stages 1 to 5, with or without kidney disease, indicate chronic kidney disease. Notes: Determination of stages one and two (with eGFR >59mL/min/1.73 m2) requires estimation of kidney damage for at least three months as defined by structural or functional abnormalities of the kidney, manifested by either:Pathological abnormalities or Markers of kidney damage (including abnormalities in the composition of the blood or urine or abnormalities in imaging tests). Lab Interpretation (test code = 45974-7) Abnormal [facility] WITH [id number] 17:43:32* Test Item Value Reference Range Interpretation Comme nts WBC (test code = 6690-2) See_Comment [Automated [employer]] The system which generated this result transmitted reference range: 4.20 - 10.70 10*3/?L. The reference range was not used to interpret this result as normal/abnormal. RBC (test code = 789-8) See_Comment [Automated [employer]] The system which generated this result transmitted reference range: 4.26 - 5.52 10*6/?L. The reference range was not used to interpret this result as normal/abnormal. HGB (test code = 718-7) 15.1 g/dL 12.2-16.4 HCT (test code = 4544-3) 46.2 % 38.4-49.3 MCV (test code = 787-2) 84.9 fL 81.7-95.6 MCH (test code = 785-6) 27.8 pg 26.1-32.7 MCHC (test code = 786-4) 32.7 g/dL 31.2-35.0 RDW-SD (test code = 16497-0) 39.8 fL 38.5-51.6 RDW-CV (test code = 788-0) 12.9 % 12.1-15.4 PLT (test code = 777-3) See_Comment [Automated [employer]] The system which generated this result transmitted reference range: 150 - 328 10*3/?L. The reference range was not used to interpret this result as normal/abnormal. MPV (test code = 89051-3) 10.5 fL 9.8-13.0 NRBC/100 WBC (test code = 2869008831) See_Comment [Automated [employer] ssage] The system which generated this result transmitted reference range: 0.0 - 10.0 /100 WBCs. The reference range was not used to interpret this result as normal/abnormal. NRBC x10^3 (test code = 8321997239) <0.01 See_Comment [Automated me ssage] The system which generated this result transmitted reference range: 10*3/?L. The reference range was not used to interpret this result as normal/abnormal. GRAN MAT (NEUT) % (test code = 770-8) 56.2 % IMM GRAN % (test code = 3202757366) 0.20 % LYMPH % (test code = 736-9) 30.3 % MONO % (test code = 5905-5) 9.7 % EOS % (test code = 713-8) 3.0 % BASO % (test code = 706-2) 0.6 % GRAN MAT x10^3(ANC) (test code = 4485175031) 2.62 10*3/uL 1.99-6.95 IMM GRAN x10^3 (test code = 8726334647) <0.03 0.00-0.06 LYMPH x10^3 (test code = 731-0) 1.41 10*3/uL 1.09-3.23 MONO x10^3 (test code = 742-7) 0.45 10*3/uL 0.36-1.02 EOS x10^3 (test code = 711-2) 0.14 10*3/uL 0.06-0.53 BASO x10^3 (test code = 704-7) 0.03 10*3/uL 0.01-0.09 [facility] (NA, K, CL, CO2, GLUCOSE, BUN, CREATININE, CA)2020-06-03 13:06:15* Test Item Value Reference Range Interpretation Comme nts NA (test code = 7777624722) 135 mmol/L 135-145 K (test code = 6114161020) 4.2 mmol/L 3.5-5.0 CL (test code = 6204215578) 103 mmol/L 98-108 CO2 TOTAL (test code = 6529095382) 26 mmol/L 23-31 AGAP (test code = 4688937126) 2-16 BUN (test code = 1717017396) 35 mg/dL 7-23 H GLUCOSE (test code = 2366288749) 104 mg/dL 70-110 CREATININE (test code = 6780916795) 2.31 mg/dL 0.60-1.25 H CALCIUM (test code = 1646538732) 8.9 mg/dL 8.6-10.6 eGFR (test code = 3782966030) mL/min/1.73m2 VLAD (test code = VLAD) Association of Glomerular Filtration Rate (GFR) and Staging of Kidney Disease* + --+ --+ ------+| GFR (mL/min/1.73 m2) ?| With Kidney Damage ?| ?Without Kidney Damage+ --------+ --------+ +| ?>90 ?| ?Stage one ?| ? Normal ?+ ---+ ---+ -------+| ?60-89 ?| ?Stage two ?| ? Decreased GFR ? + --+ --+ ------+| ?30-59 ?| ?Stage three ?| ? Stage three ? + --+ --+ ------+| ?15-29 ?| ?Stage four ? | ? Stage four ?+ ---+ ---+ -------+| ?<15 (or dialysis) ? ?| ?Stage five ? | ? Stage five ?+ ---+ ---+ -------+ *Each stage assumes the associated GFR level has been in effect for at least three months. ?Stages 1 to 5, with or without kidney disease, indicate chronic kidney disease. Notes: Determination of stages one and two (with eGFR >59mL/min/1.73 m2) requires estimation of kidney damage for at least three months as defined by structural or functional abnormalities of the kidney, manifested by either:Pathological abnormalities or Markers of kidney damage (including abnormalities in the composition of the blood or urine or abnormalities in imaging tests). Lab Interpretation (test code = 90273-9) [facility] 13:06:15* Test Item Value Reference Range Interpretation Comme nts MAGNESIUM (test code = 7080743694) 2.1 mg/dL 1.7-2.4 Lab Interpretation (test cod e = 86548-9) Normal [facility] WITH [id number] 12:01:28* Test Item Value Reference Range Interpretation Comme nts WBC (test code = 6690-2) See_Comment [Automated messa ge] The system which generated this result transmitted reference range: 4.20 - 10.70 10*3/?L. The reference range was not used to interpret this result as normal/abnormal. RBC (test code = 789-8) See_Comment [Automated OrganizedWisdoma ge] The system which generated this result transmitted reference range: 4.26 - 5.52 10*6/?L. The reference range was not used to interpret this result as normal/abnormal. HGB (test code = 718-7) 13.6 g/dL 12.2-16.4 HCT (test code = 4544-3) 41.3 % 38.4-49.3 MCV (test code = 787-2) 85.5 fL 81.7-95.6 MCH (test code = 785-6) 28.2 pg 26.1-32.7 MCHC (test code = 786-4) 32.9 g/dL 31.2-35.0 RDW-SD (test code = 99241-1) 41.2 fL 38.5-51.6 RDW-CV (test code = 788-0) 13.2 % 12.1-15.4 PLT (test code = 777-3) See_Comment [Automated OrganizedWisdoma ge] The system which generated this result transmitted reference range: 150 - 328 10*3/?L. The reference range was not used to interpret this result as normal/abnormal. MPV (test code = 21370-4) 10.9 fL 9.8-13.0 NRBC/100 WBC (test code = 3988732582) See_Comment [Automated me ssage] The system which generated this result transmitted reference range: 0.0 - 10.0 /100 WBCs. The reference range was not used to interpret this result as normal/abnormal. NRBC x10^3 (test code = 6435986045) <0.01 See_Comment [Automated me ssage] The system which generated this result transmitted reference range: 10*3/?L. The reference range was not used to interpret this result as normal/abnormal. GRAN MAT (NEUT) % (test code = 770-8) 56.0 % IMM GRAN % (test code = 2976490401) 0.20 % LYMPH % (test code = 736-9) 25.1 % MONO % (test code = 5905-5) 14.9 % EOS % (test code = 713-8) 3.5 % BASO % (test code = 706-2) 0.3 % GRAN MAT x10^3(ANC) (test code = 5913894767) 3.66 10*3/uL 1.99-6.95 IMM GRAN x10^3 (test code = 9783920113) <0.03 0.00-0.06 LYMPH x10^3 (test code = 731-0) 1.64 10*3/uL 1.09-3.23 MONO x10^3 (test code = 742-7) 0.97 10*3/uL 0.36-1.02 EOS x10^3 (test code = 711-2) 0.23 10*3/uL 0.06-0.53 BASO x10^3 (test code = 704-7) <0.03 0.01-0.09 [facility] COVID [id number] 03:20:06COVID DMT InterpretationInterpretation/Recommendations: Molecular NAAT Tests for Active Infection with the SARS-CoV-2 Virus: The patient has currently tested negative for the SARS-CoV-2 virus that causes COVID-19 illness, subsequent to a previously positive test. At this time, the patient may be rec overing from the infection, which is likely if any present symptoms are decreasing. In lvpl-qx-qqfpalik illness, the patient may be considered no longer infectious when it has been after 10 days since symptom onset, the patient has been afebrile for 24 hours without the use of fever-reducing medications, AND other symptoms of COVID-19 are improving. However, in patients who have been severely illwith COVID-19 or are severely immunocompromised, isolation up to 20 days after symptom onset is recommended. Asymptomatic patients are considered infectious for the first 10 days subsequent to the initial positive test result. If the patient's symptoms - if any - are persistent/worsening, a repeat m olecular NAAT test (PCR, Rapid ID Now, etc.) may be indicated. ? Tests for IgM and/or IgG Antibodies to the SARS-CoV-2 Virus: Testing for IgM and IgG antibodies approximately 3 weeks after illness onset will likely indicate whether the patient has produced antibodies to the SARS-CoV-2 virus. However, some patients may take longer to develop detectable antibodies, while some patients who were infected with SARS-CoV-2 may never develop antibodies. While antibodies to SARS-CoV-2 may provide some degree of immunity, at this time the strength and duration of the antibody response is unknown. ? ---- Interpretation Result Comments:These interpretation comments are based upon all COVID-19 testing the patient has had at [facility], including molecular NAAT testing (more commonly known as PCR testing and Rapid ID Now testing) and antibody testing. It does not take into account any testing that a patient has had outside of the [facility] medical record. [facility] LABORATORY SERVICESCOVID UpjmgoxKTXL-MtB-4 Rapid ID NOW (no units) ? ? Date ? Value ? 06/01/2020 ? Not Detected ? ? ? 09/04/2019 ? Positive (A) ? [facility]ICEST[facility]leMando [id number] 13:48:42* Test Item Value Reference Range Interpretation Comme nts TROPONIN I (test code = 2820365283) 0.119 ng/mL See_Comment H Hemolyzed specimen [Automated message] The system which generated this result transmitted reference range: <=0.034. The reference range was not used to interpret this result as normal/abnormal. VLAD (test code = VLAD) Equal or Less than 0.034 ng/ml---Normal ?Note: Cardiac troponin begins to rise 3-4 hours after the onset of ischemia. Repeat in 4-6 hours if the sample was drawn within 3-4 hours of the onset of the symptom and found normal. Between 0.035 and 0.120 ng/mL--- Borderline. Questionable myocardial injury or necrosis ? ?Note: Serial measurement may be necessary to confirm or exclude the diagnosis of myocardial injury or necrosis; Clinical correlation (symptoms, EKGs, imaging studies, and others) required; Repeat in 4-6 hours if clinically indicated. ? Equal or Higher than 0.121 ng/mL---Abnormal. Myocardial Injury or Necrosis Likely ? Biotin has been reported to cause a negative bias, interpret results relative to patient's use of biotin. ? Lab Interpretation (test code = 38359-4) Abnormal [facility]leACTIV[facility] PARTIAL THRMPLAS [id number] 12:21:16* Test Item Value Reference Range Interpretation Comme nts APTT Patient (test code = 3173-2) See_Comment H [Automated messa ge] The system which generated this result transmitted reference range: 26 - 36 Seconds. The reference range was not used to interpret this result as normal/abnormal. Lab Interpretation (test code = 79231-5) Abnormal [facility]leGlycosylated Hemoglobin (A1C)2020-06-02 12:04:04* Test Item Value Reference Range Interpretation Comme [facility] HGB A1C (test code = 4548-4) 5.7 % 4.0-5.7 VLAD (test code = VLAD) Reference RangesNormal: <5.7%Prediabetes: 5.7 - 6.4%Diabetes: > 6.5% Lab Interpretation (test code = 46047-1) Normal [facility] AzleTroponin [id number] 07:18:35* Test Item Value Reference Range Interpretation Comme [facility] TROPONIN I (test code = 2976008231) 0.130 ng/mL See_Comment H [Automated message] The system which generated this result transmitted reference range: <=0.034. The reference range was not used to interpret this result as normal/abnormal. VLAD (test code = VLAD) Equal or Less than 0.034 ng/ml---Normal ?Note: Cardiac troponin begins to rise 3-4 hours after the onset of ischemia. Repeat in 4-6 hours if the sample was drawn within 3-4 hours of the onset of the symptom and found normal. Between 0.035 and 0.120 ng/mL--- Borderline. Questionable myocardial injury or necrosis ? ?Note: Serial measurement may be necessary to confirm or exclude the diagnosis of myocardial injury or necrosis; Clinical correlation (symptoms, EKGs, imaging studies, and others) required; Repeat in 4-6 hours if clinically indicated. ? Equal or Higher than 0.121 ng/mL---Abnormal. Myocardial Injury or Necrosis Likely ? Biotin has been reported to cause a negative bias, interpret results relative to patient's use of biotin. ? Lab Interpretation (test code = 88807-0) Abnormal [facility] Metabolic Panel (NA, K, CL, CO2, GLUCOSE, BUN, CREATININE, CA)2020-06-02 07:06:14* Test Item Value Reference Range Interpretation Comme nts NA (test code = 9611170479) 136 mmol/L 135-145 K (test code = 0172100275) 3.9 mmol/L 3.5-5.0 CL (test code = 4125958693) 104 mmol/L 98-108 CO2 TOTAL (test code = 5628367295) 25 mmol/L 23-31 AGAP (test code = 5472741568) 2-16 BUN (test code = 8207297502) 38 mg/dL 7-23 H GLUCOSE (test code = 7279496823) 103 mg/dL 70-110 CREATININE (test code = 3390720915) 2.49 mg/dL 0.60-1.25 H CALCIUM (test code = 3735133427) 9.0 mg/dL 8.6-10.6 eGFR (test code = 3571501725) mL/min/1.73m2 VLAD (test code = VLAD) Association of Glomerular Filtration Rate (GFR) and Staging of Kidney Disease* + --+ --+ ------+| GFR (mL/min/1.73 m2) ?| With Kidney Damage ?| ?Without Kidney Damage+ --------+ --------+ +| ?>90 ?| ?Stage one ?| ? Normal ?+ ---+ ---+ -------+| ?60-89 ?| ?Stage two ?| ? Decreased GFR ? + --+ --+ ------+| ?30-59 ?| ?Stage three ?| ? Stage three ? + --+ --+ ------+| ?15-29 ?| ?Stage four ? | ? Stage four ?+ ---+ ---+ -------+| ?<15 (or dialysis) ? ?| ?Stage five ? | ? Stage five ?+ ---+ ---+ -------+ *Each stage assumes the associated GFR level has been in effect for at least three months. ?Stages 1 to 5, with or without kidney disease, indicate chronic kidney disease. Notes: Determination of stages one and two (with eGFR >59mL/min/1.73 m2) requires estimation of kidney damage for at least three months as defined by structural or functional abnormalities of the kidney, manifested by either:Pathological abnormalities or Markers of kidney damage (including abnormalities in the composition of the blood or urine or abnormalities in imaging tests). Lab Interpretation (test code = 40448-9) Abnormal [facility] AzleMagnesium [id number] 07:06:14* Test Item Value Reference Range Interpretation Comme [facility] MAGNESIUM (test code = 7450865183) 1.8 mg/dL 1.7-2.4 Lab Interpretation (test cod e = 50610-3) Normal [facility]leACTIV[facility] PARTIAL THRMPLAS [id number] 06:54:52* Test Item Value Reference Range Interpretation Comme [facility] APTT Patient (test code = 3173-2) See_Comment [Automated [employer] Good [employer]s] The system which generated this result transmitted reference range: 26 - 36 Seconds. The reference range was not used to interpret this result as normal/abnormal. Lab Interpretation (test code = 81917-8) Normal [facility] AzleThyroid Stimulating Hormone (TSH)2020-06-02 00:27:14* Test Item Value Reference Range Interpretation Comme [facility] TSH (test code = 7138312237) See_Comment [Automated [employer]] The system which generated this result transmitted reference range: 0.45 - 4.70 mIU/L. The reference range was not used to interpret this result as normal/abnormal. Lab Interpretation (test code = 07919-6) Normal [facility] AzleTroponin [id number] 00:08:44* Test Item Value Reference Range Interpretation Comme nts TROPONIN I (test code = 4559413203) 0.096 ng/mL See_Comment H [Automated message] The system which generated this result transmitted reference range: <=0.034. The reference range was not used to interpret this result as normal/abnormal. VLAD (test code = VLAD) Equal or Less than 0.034 ng/ml---Normal ?Note: Cardiac troponin begins to rise 3-4 hours after the onset of ischemia. Repeat in 4-6 hours if the sample was drawn within 3-4 hours of the onset of the symptom and found normal. Between 0.035 and 0.120 ng/mL--- Borderline. Questionable myocardial injury or necrosis ? ?Note: Serial measurement may be necessary to confirm or exclude the diagnosis of myocardial injury or necrosis; Clinical correlation (symptoms, EKGs, imaging studies, and others) required; Repeat in 4-6 hours if clinically indicated. ? Equal or Higher than 0.121 ng/mL---Abnormal. Myocardial Injury or Necrosis Likely ? Biotin has been reported to cause a negative bias, interpret results relative to patient's use of biotin. ? Lab Interpretation (test code = 14404-2) Abnormal [facility] AzlePhosphorus [id number] 23:57:01* Test Item Value Reference Range Interpretation Comme nts PHOSPHORUS (test code = 2759361078) 2.8 mg/dL 2.5-5.0 Lab Interpretation (test cod e = 80730-2) Normal [facility]leLipid Panel (Total Cholesterol, Triglycerides, HDL)2020-06-01 23:07:05* Test Item Value Reference Range Interpretation Comme nts CHOL (test code = 4572073847) 171 mg/dL 120-200 HDL (test code = 0559063662) 53 mg/dL >40 HDLC RATIO (test code = 2560544163) See_Comment [Automated OrganizedWisdoma COADE] The system which generated this result transmitted reference range: <=5.0. The reference range was not used to interpret this result as normal/abnormal. TRIG (test code = 6980423730) 54 mg/dL 30-170 LDL CHOL (test code = 15595-7) 107 mg/dL See_Comment [Automated OrganizedWisdoma COADE] The system which generated this result transmitted reference range: <=160. The reference range was not used to interpret this result as normal/abnormal. VLDL (test code = 2614605080) 11 mg/dL 5-60 Lab Interpretation (test code = 11622-7) Normal [facility] AzleCritical [id number] 21:08:59Rasheeda Riojas MD ? ? 06/01/2020 ?4:09 PMCritical CarePerformed by: Rasheeda Riojas MDAuthorized by: Rasheeda Riojas MD Critical care provider statement: ?Critical care time (minutes): ?45 ?Critical care was necessary to treat or prevent imminent or life-threatening deterioration of the following conditions: ?Cardiac failure ?Critical care was time spent personally by me on the following activi ties: ?Ordering and performing treatments and interventions, ordering and review of laboratory studies, ordering and review of radiographic studies, pulse oximetry, re-evaluation of patient's condition, discussions with consultants, blood draw for specimens, evaluation of patient's response to treatment and examination of patientUnBaylor Scott & [facility] CentennialURINE DRUG (IMMUNOASSAY) - 4 ER [id number] 20:31:46* Test Item Value Reference Range Interpretation Comme nts AMPHET (test code = 3569747522) Negative Negative Cocaine Metabolite (test code = 0731456185) Presumptive Positive Negative A OPIATES (test code = 1533840900) Negative Negative THC (test code = 2530001262) Negative Negative VLAD (test code = VLAD) Urine Drug Cutoff Ranges Amphetamine: ? 1,000 ng/mLCocaine: ? 150 ng/mLOpiates: ? 300 ng/mLCannabinoids: ?50 ng/mL The results are to be used only for medical (i.e., treatment) purposes. Unconfirmed screening results must not be used for non-medical purposes (e.g., employment testing, legal testing). Lab Interpretation (test code = 67546-6) Abnormal [facility] AzleTroponin [id number] 17:18:05* Test Item Value Reference Range Interpretation Comme nts TROPONIN I (test code = 1857226947) 0.088 ng/mL See_Comment H [Automated message] The system which generated this result transmitted reference range: <=0.034. The reference range was not used to interpret this result as normal/abnormal. VALD (test code = VLAD) Equal or Less than 0.034 ng/ml---Normal ?Note: Cardiac troponin begins to rise 3-4 hours after the onset of ischemia. Repeat in 4-6 hours if the sample was drawn within 3-4 hours of the onset of the symptom and found normal. Between 0.035 and 0.120 ng/mL--- Borderline. Questionable myocardial injury or necrosis ? ?Note: Serial measurement may be necessary to confirm or exclude the diagnosis of myocardial injury or necrosis; Clinical correlation (symptoms, EKGs, imaging studies, and others) required; Repeat in 4-6 hours if clinically indicated. ? Equal or Higher than 0.121 ng/mL---Abnormal. Myocardial Injury or Necrosis Likely ? Biotin has been reported to cause a negative bias, interpret results relative to patient's use of biotin. ? Lab Interpretation (test code = 91676-4) Abnormal [facility] AzleN-TERMINAL [id number] 17:15:05* Test Item Value Reference Range Interpretation Comme nts NT-proBNP (test code = 0761676373) 900 pg/mL See_Comment H [Automated message] The system which generated this result transmitted reference range: <=125. The reference range was not used to interpret this result as normal/abnormal. VLAD (test code = VLAD) Biotin has been reported to cause a negative bias, interpret results relative to patient's use of biotin. Lab Interpretation (test code = 14834-9) Abnormal [facility]leCOVID-[facility] (ID NOW RAPID TESTING)2020-06-01 17:10:05* Test Item Value Reference Range Interpretation Comme nts SARS-CoV-2 Rapid ID NOW (test code = 25588-4) Not Detected Not Detected VLAD (test code = VLAD) ID NOW COVID-19 As say is an isothermal nucleic acid amplification test intended for the qualitative detection of nucleic acid from SARS-CoV-2 viral RNA in nasopharyngeal (GERIATRIC PSYCHIATRIST) specimens. It is used under Emergency Use Authorization (EUA) by FDA. The limit of detection (LOD) of the assay is 125 Genome Equivalents/mL. A positive result is indicative of the presence of SARS-CoV-2 RNA. ?Clinical correlation with patient history and other diagnostic information is necessary to determine patient infection status. A negative (Not Detected) result does not preclude SARS-CoV-2 infection. In patients with clinical symptoms and other tests that are consistent with SARS-CoV-2 infection, negative results should be treated as presumptive negative and a new specimen should be tested with alternative PCR molecular test. Invalid: Please collect a new specimen for repeat patient testing if clinically indicated. Lab Interpretation (test code = 08331-4) Normal [facility] Metabolic Panel (NA, K, CL, CO2, GLUCOSE, BUN, CREATININE, CA)2020-06-01 17:07:08* Test Item Value Reference Range Interpretation Comme nts NA (test code = 0745920583) 137 mmol/L 135-145 K (test code = 2178567844) 4.2 mmol/L 3.5-5.0 CL (test code = 9125654931) 104 mmol/L 98-108 CO2 TOTAL (test code = 4095075582) 24 mmol/L 23-31 AGAP (test code = 8565365518) 2-16 BUN (test code = 2021855142) 36 mg/dL 7-23 H GLUCOSE (test code = 4656019362) 99 mg/dL 70-110 CREATININE (test code = 4391549998) 2.38 mg/dL 0.60-1.25 H CALCIUM (test code = 1646365076) 9.1 mg/dL 8.6-10.6 eGFR (test code = 5289259067) mL/min/1.73m2 VLAD (test code = VLAD) Association of Glomerular Filtration Rate (GFR) and Staging of Kidney Disease* + --+ --+ ------+| GFR (mL/min/1.73 m2) ?| With Kidney Damage ?| ?Without Kidney Damage+ --------+ --------+ +| ?>90 ?| ?Stage one ?| ? Normal ?+ ---+ ---+ -------+| ?60-89 ?| ?Stage two ?| ? Decreased GFR ? + --+ --+ ------+| ?30-59 ?| ?Stage three ?| ? Stage three ? + --+ --+ ------+| ?15-29 ?| ?Stage four ? | ? Stage four ?+ ---+ ---+ -------+| ?<15 (or dialysis) ? ?| ?Stage five ? | ? Stage five ?+ ---+ ---+ -------+ *Each stage assumes the associated GFR level has been in effect for at least three months. ?Stages 1 to 5, with or without kidney disease, indicate chronic kidney disease. Notes: Determination of stages one and two (with eGFR >59mL/min/1.73 m2) requires estimation of kidney damage for at least three months as defined by structural or functional abnormalities of the kidney, manifested by either:Pathological abnormalities or Markers of kidney damage (including abnormalities in the composition of the blood or urine or abnormalities in imaging tests). Lab Interpretation (test code = 60643-9) Abnormal [facility]leHepatic Function Panel (ALB, T.PRO, BILI T, BU/BC, ALT, AST, ALK PHOS)2020-06-01 17:07:03* Test Item Value Reference Range Interpretation Comme nts TOTAL BILI (test code = 7673737728) 0.5 mg/dL 0.1-1.1 BILI UNCON (test code = 2752633946) 0.4 mg/dL 0.1-1.1 BILI CONJ (test code = 3268691725) 0.0 mg/dL 0.0-0.3 T PROTEIN (test code = 2211203971) 6.9 g/dL 6.3-8.2 ALBUMIN (test code = 1678456313) 4.1 g/dL 3.5-5.0 ALK PHOS (test code = 3857199071) 96 U/L 34-122 ALTv (test code = 1742-6) 17 U/L 5-50 AST(SGOT) (test code = 7775509941) 26 U/L 13-40 Lab Interpretation (test cod e = 10446-0) Normal [facility] AzleaPTT2021-04-20 17:04:25* Test Item Value Reference Range Interpretation Comme [facility] APTT Patient (test code = 3173-2) See_Comment [Automated message] The system which generated this result transmitted reference range: 23 - 38 Seconds. The reference range was not used to interpret this result as normal/abnormal. VLAD (test code = VLAD) The [facility] patient population mean normal value for aPTT is 30 seconds. Lab Interpretation (test code = 76271-9) Normal [facility] AzleProthrombin Time (PT) / [id number] 17:02:24 * Test Item Value Reference Range Interpretation Comme [facility] PROTIME PATIENT (test code = 5964-2) See_Comment [Automated OrganizedWisdoma ge] The system which generated this result transmitted reference range: 12.0 - 14.7 Seconds. The reference range was not used to interpret this result as normal/abnormal. INR (test code = 6301-6) Normal INR <1.1; Warfarin Therapeutic range 2.0 to 3.0 or 2.5 to 3.5, depending upon the indications. Lab Interpretation (test code = 64144-0) Normal [facility] AzleCBC with [id number] 16:59:03* Test Item Value Reference Range Interpretation Comme [facility] WBC (test code = 6690-2) See_Comment [Automated OrganizedWisdoma ge] The system which generated this result transmitted reference range: 4.20 - 10.70 10*3/?L. The reference range was not used to interpret this result as normal/abnormal. RBC (test code = 789-8) See_Comment [Automated messa ge] The system which generated this result transmitted reference range: 4.26 - 5.52 10*6/?L. The reference range was not used to interpret this result as normal/abnormal. HGB (test code = 718-7) 14.2 g/dL 12.2-16.4 HCT (test code = 4544-3) 43.4 % 38.4-49.3 MCV (test code = 787-2) 85.4 fL 81.7-95.6 MCH (test code = 785-6) 28.0 pg 26.1-32.7 MCHC (test code = 786-4) 32.7 g/dL 31.2-35.0 RDW-SD (test code = 25840-9) 42.2 fL 38.5-51.6 RDW-CV (test code = 788-0) 13.3 % 12.1-15.4 PLT (test code = 777-3) See_Comment [Automated messa ge] The system which generated this result transmitted reference range: 150 - 328 10*3/?L. The reference range was not used to interpret this result as normal/abnormal. MPV (test code = 09170-1) 10.8 fL 9.8-13.0 NRBC/100 WBC (test code = 9549276661) See_Comment [Automated me ssage] The system which generated this result transmitted reference range: 0.0 - 10.0 /100 WBCs. The reference range was not used to interpret this result as normal/abnormal. NRBC x10^3 (test code = 6322045992) <0.01 See_Comment [Automated me ssage] The system which generated this result transmitted reference range: 10*3/?L. The reference range was not used to interpret this result as normal/abnormal. GRAN MAT (NEUT) % (test code = 770-8) 59.7 % IMM GRAN % (test code = 0880527479) 0.20 % LYMPH % (test code = 736-9) 26.4 % MONO % (test code = 5905-5) 9.3 % EOS % (test code = 713-8) 3.8 % BASO % (test code = 706-2) 0.6 % GRAN MAT x10^3(ANC) (test code = 0518559917) 2.96 10*3/uL 1.99-6.95 IMM GRAN x10^3 (test code = 8359212335) <0.03 0.00-0.06 LYMPH x10^3 (test code = 731-0) 1.31 10*3/uL 1.09-3.23 MONO x10^3 (test code = 742-7) 0.46 10*3/uL 0.36-1.02 EOS x10^3 (test code = 711-2) 0.19 10*3/uL 0.06-0.53 BASO x10^3 (test code = 704-7) 0.03 10*3/uL 0.01-0.09 [facility] 1 [id number] 16:57:50HISTORY: Dyspnea. TECHNIQUE: Portable AP erect view of the chest is obtained. Comparison ismade with 12/31/2017 study. FINDINGS: No acute pneumonia. No pneumothorax or pleural effusion orpulmonary congestion detected. Cardiac size is within upper normal limits.Note made of hepatic flexure of large bowel interposed between liver andright hemidiaphragm. Moderate hypertrophic degenerative osteoarthritis of the humeral jointsnoted, more severe affecting left glenohumeral joint. CONCLUSIONS: No signs of acute cardiopulmonary disease.[facility], Radiant Results Inft User - 06/01/2020 11:58 AM CDTHISTORY:Dyspnea.TECHNIQUE: Portable AP erect view of the chest is obtained. Comparison ismade with 12/31/2017 study.FINDINGS: No acute pneumonia. No pneumothorax or pleural effusion orpulmonary congestion detected. Cardiac size is within upper normal limits.Note made of hepatic flexure of large bowel interposed between liver andright hemidiaphragm.Moderate hypertrophic degenerative osteoarthritis of the humeral jointsnoted, more severe affecting left glenohumeral joint.CONCLUSIONS: No signs of acute cardiopulmonary disease.[facility]le[facility] CALCIUM [id number] 16:15:00* Test Item Value Reference Range Interpretation Comme nts CALCIUM (test code = 0984340336) 8.7 mg/dL 8.6-10.6 PTH-INTACT (test code = 7895778341) 63.1 pg/mL 12-88 PTH-CA Interpretation (test code = 3116503279) PTH IS Appropria te for Calcium [facility] with [id number] 10:39:00* Test Item Value Reference Range Interpretation Comme nts WBC (test code = 6690-2) See_Comment [Automated [employer] ge] The system which generated this result transmitted reference range: 4.20 - 10.70 10*3/?L. The reference range was not used to interpret this result as normal/abnormal. RBC (test code = 789-8) See_Comment [Automated [employer] ge] The system which generated this result transmitted reference range: 4.26 - 5.52 10*6/?L. The reference range was not used to interpret this result as normal/abnormal. HGB (test code = 718-7) 12.9 g/dL 12.2-16.4 HCT (test code = 4544-3) 38.7 % 38.4-49.3 MCV (test code = 787-2) 84.5 fL 81.7-95.6 MCH (test code = 785-6) 28.2 pg 26.1-32.7 MCHC (test code = 786-4) 33.3 g/dL 31.2-35 RDW-SD (test code = 18218-7) 42.3 fL 38.5-51.6 RDW-CV (test code = 788-0) 13.7 % 12.1-15.4 PLT (test code = 777-3) See_Comment [Automated [employer] ge] The system which generated this result transmitted reference range: 150 - 328 10*3/?L. The reference range was not used to interpret this result as normal/abnormal. MPV (test code = 33755-7) 11.0 fL 9.8-13 NRBC/100 WBC (test code = 2055107741) See_Comment [Automated [employer] ssage] The system which generated this result transmitted reference range: 0.0 - 10.0 /100 WBCs. The reference range was not used to interpret this result as normal/abnormal. NRBC x10^3 (test code = 1693751973) <0.01 See_Comment [Automated [employer] ge] The system which generated this result transmitted reference range: 10*3/?L. The reference range was not used to interpret this result as normal/abnormal. GRAN MAT (NEUT) % (test code = 770-8) 44.6 % IMM GRAN % (test code = 1782510295) 0.20 % LYMPH % (test code = 736-9) 43.1 % MONO % (test code = 5905-5) 9.0 % EOS % (test code = 713-8) 2.9 % BASO % (test code = 706-2) 0.2 % GRAN MAT x10^3(ANC) (test code = 8141519600) 1.87 10*3/uL 1.99-6.95 L IMM GRAN x10^3 (test code = 7005026936) <0.03 0-0.06 LYMPH x10^3 (test code = 731-0) 1.81 10*3/uL 1.09-3.23 MONO x10^3 (test code = 742-7) 0.38 10*3/uL 0.36-1.02 EOS x10^3 (test code = 711-2) 0.12 10*3/uL 0.06-0.53 BASO x10^3 (test code = 704-7) <0.03 0.01-0.09 Lab Interpretation (test code = 65828-5) Abnormal [facility] Metabolic Panel (NA, K, CL, CO2, GLUCOSE, BUN, CREATININE, CA)2019-09-06 10:39:00* Test Item Value Reference Range Interpretation Comme nts NA (test code = 1886210566) 136 mmol/L 135-145 K (test code = 2303931042) 3.8 mmol/L 3.5-5 CL (test code = 4511036502) 106 mmol/L 98-108 CO2 TOTAL (test code = 1921025935) 25 mmol/L 23-31 AGAP (test code = 0741349250) 2-16 BUN (test code = 1046404664) 27 mg/dL 7-23 H GLUCOSE (test code = 3262266003) 89 mg/dL 70-110 CREATININE (test code = 7898948192) 2.06 mg/dL 0.6-1.25 H CALCIUM (test code = 1143137862) 8.7 mg/dL 8.6-10.6 eGFR Calculation (Non-) (test code = 1191082334) mL/min/1.73m2 eGFR Calculation () (test code = 3747649754) mL/min/1.73m2 VLAD (test code = VLAD) Association of Glomerular Filtration Rate (GFR) and Staging of Kidney Disease* + --+ --+ ------+| GFR (mL/min/1.73 m2) ?| With Kidney Damage ?| ?Without Kidney Damage+ --------+ --------+ +| ?>90 ?| ?Stage one ?| ? Normal ?+ ---+ ---+ -------+| ?60-89 ?| ?Stage two ?| ? Decreased GFR ? + --+ --+ ------+| ?30-59 ?| ?Stage three ?| ? Stage three ? + --+ --+ ------+| ?15-29 ?| ?Stage four ? | ? Stage four ?+ ---+ ---+ -------+| ?<15 (or dialysis) ? ?| ?Stage five ? | ? Stage five ?+ ---+ ---+ -------+ *Each stage assumes the associated GFR level has been in effect for at least three months. ?Stages 1 to 5, with or without kidney disease, indicate chronic kidney disease. Notes: Determination of stages one and two (with eGFR >59mL/min/1.73 m2) requires estimation of kidney damage for at least three months as defined by structural or functional abnormalities of the kidney, manifested by either:Pathological abnormalities or Markers of kidney damage (including abnormalities in the composition of the blood or urine or abnormalities in imaging tests). Lab Interpretation (test code = 04408-1) [facility]normal [facility] [id number] 14:39:09No acute intracranial hemorrhage or mass effect. Possible rightthalamocapsular lacunar infarct, ageindeterminate. MRI withdiffusion-weighted imaging is more sensitive for the detection of acuteischemia. Preliminary Report Dictated by Resident: Tarik Spangler ?MD. Candy, have reviewed this study and agree with theabove report.EXAM: CT HEAD WO CONTRAST HISTORY: ?Stroke, follow up T ECHNIQUE: Spiral CT examination of the head was obtained. Sagittal andcoronal reformats were generated. COMPARISON: CT head on 09/04/2019 FINDINGS: The ventricles and cerebral sulci are normal in caliber and configuration.No hydrocephalus, midline shift or pathological extra-axial fluidcollection is present. The basal cisterns are unremarkable. There is no acute intracranial hemorrhage or significant mass effect. Focalhypoattenuation in the left posterior inferior basal ganglia is unchangedfrom multiple comparison examinations dating back to 2017 reflectingdilated perivascular space versus lacunar infarct. Mild bilateral cerebralwhite matter hypoattenuation is also essentially changed in degree [id number] and favored to represent sequelae of microvascular ischemia. Bilateralbasal ganglia calcifications are present. Possible right thalamocapsularlacunar infarct. A bone spur is noted along the medial left sphenoid sinus. A roundedhyperdensity, isointense to bone in the right sphenoid sinusmay representa osteoma. Mild mucoperiosteal thickening narrows the bilateralsphenoethmoidal recesses. The calvarium and central skull base are unremarkable. [facility], Radiant Results Inft User - 09/05/2019 9:40 AM CDTEXAM: CT HEAD WO CONTRASTHISTORY: Stroke, follow up TECHNIQUE: Spiral CT examination of the head was obtained. Sagittal andcoronal reformats were generated.COMPARISON: CT head on 09/04/2019FINDINGS:The ventricles and cerebral sulci are normal in caliber and configuration.No hydrocephalus, midline shift or pathological extra-axial fluidcollection is present. The basal cisterns are unremarkable.There is no acute intracranial hemorrhage or significant mass effect. Focalhypoattenuation in the left posterior inferior basal ganglia is unchangedfrom multiple comparison examinations dating back to 2017 reflectingdilated perivascular space versus lacunar infarct. Mild bilateral cerebralwhite matter hypoattenuation is also essentially changed in degree [id number] and favored to represent sequelae of microvascular ischemia. Bilateralbasal ganglia calcifications are present. Possible right thalamocapsularlacunar infarct.A bone spur is noted along the medial left sphenoid sinus. A roundedhyperdensity, isointense to bone in the right sphenoid sinus may representa osteoma. Mild mucoperiosteal thickening narrows the bilateralsphenoethmoidal recesses. The calvarium and central skull baseare unremarkable.IMPRESSIONNo acute intracranial hemorrhage or mass effect. Possible rightthalamocapsular lacunar infarct, age indeterminate. MRI withdiffusion- weighted imaging is more sensitive for the detection of acuteischemia.Preliminary Report Dictated by Resident: Tarik Rodriguez MD., have reviewed this study and agree with theabove report. [facility]leCB with Srnvfojyakrb0656-07-72 14:22:00* Test Item Value Reference Range Interpretation Comme nts WBC (test code = 6690-2) See_Comment [Automated messa ge] The system which generated this result transmitted reference range: 4.20 - 10.70 10*3/?L. The reference range was not used to interpret this result as normal/abnormal. RBC (test code = 789-8) See_Comment [Automated messa ge] The system which generated this result transmitted reference range: 4.26 - 5.52 10*6/?L. The reference range was not used to interpret this result as normal/abnormal. HGB (test code = 718-7) 12.9 g/dL 12.2-16.4 HCT (test code = 4544-3) 39.8 % 38.4-49.3 MCV (test code = 787-2) 86.1 fL 81.7-95.6 MCH (test code = 785-6) 27.9 pg 26.1-32.7 MCHC (test code = 786-4) 32.4 g/dL 31.2-35 RDW-SD (test code = 75006-7) 42.4 fL 38.5-51.6 RDW-CV (test code = 788-0) 13.5 % 12.1-15.4 PLT (test code = 777-3) See_Comment [Automated messa ge] The system which generated this result transmitted reference range: 150 - 328 10*3/?L. The reference range was not used to interpret this result as normal/abnormal. MPV (test code = 53267-6) 11.1 fL 9.8-13 NRBC/100 WBC (test code = 7299156551) See_Comment [Automated [employer] ssage] The system which generated this result transmitted reference range: 0.0 - 10.0 /100 WBCs. The reference range was not used to interpret this result as normal/abnormal. NRBC x10^3 (test code = 2199603026) <0.01 See_Comment [Automated messa ge] The system which generated this result transmitted reference range: 10*3/?L. The reference range was not used to interpret this result as normal/abnormal. GRAN MAT (NEUT) % (test code = 770-8) 38.8 % IMM GRAN % (test code = 4917626289) 0.40 % LYMPH % (test code = 736-9) 47.7 % MONO % (test code = 5905-5) 9.4 % EOS % (test code = 713-8) 3.3 % BASO % (test code = 706-2) 0.4 % GRAN MAT x10^3(ANC) (test code = 7525699308) 1.78 10*3/uL 1.99-6.95 L IMM GRAN x10^3 (test code = 5052549885) <0.03 0-0.06 LYMPH x10^3 (test code = 731-0) 2.19 10*3/uL 1.09-3.23 MONO x10^3 (test code = 742-7) 0.43 10*3/uL 0.36-1.02 EOS x10^3 (test code = 711-2) 0.15 10*3/uL 0.06-0.53 BASO x10^3 (test code = 704-7) <0.03 0.01-0.09 Lab Interpretation (test code = 79061-1) [facility]normal [facility]2020-[facility] 14:11:00* Test Item Value Reference Range Interpretation Comme nts APPEARANCE (test code = 5912487941) Clear Clear COLOR (test code = 1532390589) Yellow Yellow PH (test code = 4760509101) 4.8-8.0 SP GRAVITY (test code = 7584346448) 1.003-1.030 GLU U QUAL (test code = 5098946062) Normal Normal BLOOD (test code = 7360638652) Negative Negative KETONES (test code = 4212974272) Negative Negative PROTEIN (test code = 2887-8) Negative Negative UROBILIN (test code = 8636527422) Normal Normal BILIRUBIN (test code = 0345856944) Negative Negative NITRITE (test code = 0126351081) Negative Negative LEUK BING (test code = 8423690281) Negative Negative RBC/HPF (test code = 1167964033) See_Comment [Automated [employer]] The system which generated this result transmitted reference range: 0 - 3 HPF. The reference range was not used to interpret this result as normal/abnormal. WBC/HPF (test code = 6056230083) See_Comment [Automated [facility]] The system which generated this result transmitted reference range: 0 - 5 HPF. The reference range was not used to interpret this result as normal/abnormal. BACTERIA (test code = 7555683424) Negative Negative MUCOUS (test code = 2761015577) Slight Negative LPF A Lab Interpretation (test code = 56108-6) Abnormal [facility]leCREATINE [id number] 14:04:00* Test Item Value Reference Range Interpretation Comme nts CK (test code = 1369133734) 185 U/L 33-194 Lab Interpretation (test cod e = 18204-8) Normal [facility]leURIC [id number] 14:04:00* Test Item Value Reference Range Interpretation Comme nts URIC ACID (test code = 5201692067) 8.9 mg/dL 3.6-8 H Lab Interpretation (test cod e = 97642-2) Abnormal [facility]leCREATININE, URINE [id number] 14:00:00* Test Item Value Reference Range Interpretation Comme nts CREAT U (test code = 8921372353) 158.4 mg/dL [facility] AzleTOTAL PROTEIN, URINE [id number] 14:00:00 * Test Item Value Reference Range Interpretation Comme nts T. PROT U (test code = 2888-6) 22 mg/dL [facility] AzleTroponin [id number] 12:49:00* Test Item Value Reference Range Interpretation Comme nts TROPONIN I (test code = 7385663061) 0.078 ng/mL See_Comment H [Automated message] The system which generated this result transmitted reference range: <=0.034. The reference range was not used to interpret this result as normal/abnormal. VLAD (test code = VLAD) Equal or Less than 0.034 ng/ml---Normal ?Note: Cardiac troponin begins to rise 3-4 hours after the onset of ischemia. Repeat in 4-6 hours if the sample was drawn within 3-4 hours of the onset of the symptom and found normal. Between 0.035 and 0.120 ng/mL--- Borderline. Questionable myocardial injury or necrosis ? ?Note: Serial measurement may be necessary to confirm or exclude the diagnosis of myocardial injury or necrosis; Clinical correlation (symptoms, EKGs, imaging studies, and others) required; Repeat in 4-6 hours if clinically indicated. ? Equal or Higher than 0.121 ng/mL---Abnormal. Myocardial Injury or Necrosis Likely ? Biotin has been reported to cause a negative bias, interpret results relative to patient's use of biotin. ? Lab Interpretation (test code = 67204-4) [facility]normal [facility] (NA, K, CL, CO2, GLUCOSE, BUN, CREATININE, CA)2019-09-05 12:38:00* Test Item Value Reference Range Interpretation Comme nts NA (test code = 3153086868) 135 mmol/L 135-145 K (test code = 4929937285) 3.7 mmol/L 3.5-5 CL (test code = 0513742180) 106 mmol/L 98-108 CO2 TOTAL (test code = 3101721303) 25 mmol/L 23-31 AGAP (test code = 1555102674) 2-16 BUN (test code = 1020019986) 29 mg/dL 7-23 H GLUCOSE (test code = 2744599252) 89 mg/dL 70-110 CREATININE (test code = 2692759575) 2.10 mg/dL 0.6-1.25 H CALCIUM (test code = 1964799529) 8.7 mg/dL 8.6-10.6 eGFR Calculation (Non-) (test code = 6190044720) mL/min/1.73m2 eGFR Calculation () (test code = 1191206255) mL/min/1.73m2 VLAD (test code = VLAD) Association of Glomerular Filtration Rate (GFR) and Staging of Kidney Disease* + --+ --+ ------+| GFR (mL/min/1.73 m2) ?| With Kidney Damage ?| ?Without Kidney Damage+ --------+ --------+ +| ?>90 ?| ?Stage one ?| ? Normal ?+ ---+ ---+ -------+| ?60-89 ?| ?Stage two ?| ? Decreased GFR ? + --+ --+ ------+| ?30-59 ?| ?Stage three ?| ? Stage three ? + --+ --+ ------+| ?15-29 ?| ?Stage four ? | ? Stage four ?+ ---+ ---+ -------+| ?<15 (or dialysis) ? ?| ?Stage five ? | ? Stage five ?+ ---+ ---+ -------+ *Each stage assumes the associated GFR level has been in effect for at least three months. ?Stages 1 to 5, with or without kidney disease, indicate chronic kidney disease. Notes: Determination of stages one and two (with eGFR >59mL/min/1.73 m2) requires estimation of kidney damage for at least three months as defined by structural or functional abnormalities of the kidney, manifested by either:Pathological abnormalities or Markers of kidney damage (including abnormalities in the composition of the blood or urine or abnormalities in imaging tests). Lab Interpretation (test code = 23209-7) [facility]normal [facility]leaPTT2020-07-24 12:17:00* Test Item Value Reference Range Interpretation Comme nts APTT Patient (test code = 3173-2) See_Comment H [Automated message] The system which generated this result transmitted reference range: 23 - 38 Seconds. The reference range was not used to interpret this result as normal/abnormal. VLAD (test code = VLAD) The [facility] patient population mean normal value for aPTT is 30 seconds. Lab Interpretation (test code = 18467-3) Abnormal [facility]leaPTT2020-07-24 05:50:00* Test Item Value Reference Range Interpretation Comme nts APTT Patient (test code = 3173-2) See_Comment [Automated message] The system which generated this result transmitted reference range: 23 - 38 Seconds. The reference range was not used to interpret this result as normal/abnormal. VLAD (test code = VLAD) The [facility] patient population mean normal value for aPTT is 30 seconds. Lab Interpretation (test code = 90924-6) Normal [facility] AzleTroponin [id number] 05:10:00* Test Item Value Reference Range Interpretation Comme [facility] TROPONIN I (test code = 5344186805) 0.073 ng/mL See_Comment H [Automated message] The system which generated this result transmitted reference range: <=0.034. The reference range was not used to interpret this result as normal/abnormal. VLAD (test code = VLAD) Equal or Less than 0.034 ng/ml---Normal ?Note: Cardiac troponin begins to rise 3-4 hours after the onset of ischemia. Repeat in 4-6 hours if the sample was drawn within 3-4 hours of the onset of the symptom and found normal. Between 0.035 and 0.120 ng/mL--- Borderline. Questionable myocardial injury or necrosis ? ?Note: Serial measurement may be necessary to confirm or exclude the diagnosis of myocardial injury or necrosis; Clinical correlation (symptoms, EKGs, imaging studies, and others) required; Repeat in 4-6 hours if clinically indicated. ? Equal or Higher than 0.121 ng/mL---Abnormal. Myocardial Injury or Necrosis Likely ? Biotin has been reported to cause a negative bias, interpret results relative to patient's use of biotin. ? Lab Interpretation (test code = 27998-7) Abnormal [facility]leThyroid Stimulating Hormone (TSH)2019-09-05 00:14:00* Test Item Value Reference Range Interpretation Comme [facility] TSH (test code = 0427561284) See_Comment Biotin has been reported to cause a negative bias, interpret results relative to patient's use of biotin. [Automated message] The system which generated this result transmitted reference range: 0.45 - 4.70 mIU/L. The reference range was not used to interpret this result as normal/abnormal. Lab Interpretation (test code = 24509-1) Normal [facility]leCOVID-[facility] (ID NOW RAPID TESTING)2019-09-04 23:15:00* Test Item Value Reference Range Interpretation Comme [facility] SARS-CoV-2 Rapid ID NOW (test code = 21462-7) Positive Not Detected A VLAD (test code = VLAD) ID NOW COVID-19 As say is an isothermal nucleic acid amplification test intended for the qualitative detection of nucleic acid from SARS-CoV-2 viral RNA in nasopharyngeal (GERIATRIC PSYCHIATRIST) specimens. It is used under Emergency Use Authorization (EUA) by FDA. The limit of detection (LOD) of the assay is 125 Genome Equivalents/mL. A positive result is indicative of the presence of SARS-CoV-2 RNA. ?Clinical correlation with patient history and other diagnostic information is necessary to determine patient infection status. A negative (Not Detected) result does not preclude SARS-CoV-2 infection. In patients with clinical symptoms and other tests that are consistent with SARS-CoV-2 infection, negative results should be treated as presumptive negative and a new specimen should be tested with alternative PCR molecular test. Invalid: Please collect a new specimen for repeat patient testing if clinically indicated. Lab Interpretation (test code = 71074-2) Abnormal [facility]leCT ANGIOGRAM [id number] 21:39:59HISTORY: Aortic disease TECHNIQUE: Initially noncontrast enhanced CT scan of chest was completed.Subsequently Contrast-enhanced 64-mutidetector CT scan of the chest wascompleted with intravenous injection of only 50 mL of Omnipaque-350 nonionic contrast medium. Subsequently numerous sagittal, coronal and MIPreformations were generated. FINDINGS: Thyroid gland showed heterogeneous tissue densities without any focal mass.Trachea and central bronchial airways appear normal. No aortic aneurysm or aortic dissection detected. Entire thoracic aorta isdiffusely dilated. Central pulmonary arteries arealso dilated. Minimal fibrosis is noted in the lingula segment and anterior basal segmentof the left lower lung. No pneumonia. No pneumothorax or pleural effusionor pericardial effusion. No enlarged hilar or mediastinal lymph nodes. No large acute pulmonarythromboemboli detected. Minimal atherosclerosis noted in the LAD coronary artery. Minimalcalcification is seen in the root of the aorta and mitral annulus. THORACIC AORTA: Aortic root is 3.1 cm, proximal ascending aorta is 3.4 cm,distal ascending aorta is 3.4 cm, midportion of the aortic arch is 3.4 cm,proximal descending thoracic aorta is 3.1 cm and distal descending thoracicaorta at the level of diaphragm is 3.1 cm. Main pulmonary artery is 3.6 cm. No compression fracture detected in the thoracic vertebral bodies. Noaggressive bone lesions visualized. Visualized upper abdominal organs areunremarkable. CONCLUSIONS:1. No acute intrathoracic findings.2. In the thoracic aorta is dilated. Central pulmonary arteries are dilatedand thereis concentric hypertrophy of the left ventricular myocardium. Note: Contrast enhanced evaluation was completed using only 50 mL ofnonionic contrast medium. However, please monitor and enters the patientfor adequate hydration and urine output for next 24 to 48 hours. [facility], Radiant Results Inft User - 09/04/2019 4:41 PM CDTHISTORY: Aortic diseaseTECHNIQUE: Initially noncontrast enhanced CT scan of chest was completed.Subsequently Contrast-enhanced 64-mutidetector CT scan of the chest wascompletedwith intravenous injection of only 50 mL of Omnipaque-350 nonionic contrast medium. Subsequently numerous sagittal, coronal and MIPreformations were generated.FINDINGS:Thyroid gland showed heterogeneous tissue densities without any focal mass.Trachea and central bronchial airways appear normal.No ao rtic aneurysm or aortic dissection detected. Entire thoracic aorta isdiffusely dilated. Central pulmonary arteries are also dilated.Minimal fibrosis is noted in the lingula segment and anterior basalsegmentof the left lower lung. No pneumonia. No pneumothorax or pleural effusionor pericardial effusion.No enlarged hilar or mediastinal lymph nodes. No large acute pulmonarythromboemboli detected.Minimal atherosclerosis noted in the LAD coronary artery. Minimalcalcification is seen in the root of the aorta and mitral annulus.THORACIC AORTA: Aortic root is 3.1 cm, proximal ascending aorta is 3.4 c m,distal ascending aorta is 3.4 cm, midportion of the aortic arch is 3.4 cm,proximal descending thoracic aorta is 3.1 cm and distal descending thoracicaorta at the level of diaphragm is 3.1 cm.Main pulmonary artery is 3.6 cm.No compression fracture detected in the thoracic vertebral bodies. Noaggres sive bone lesions visualized. Visualized upper abdominal organs areunremarkable.CONCLUSIONS:1. No acute intrathoracic findings.2. In the thoracic aorta is dilated. Central pulmonary arteries are dilatedand there is concentric hypertrophy of the left ventricular myocardium.Note: Contrast enhanced evaluation was completed using only 50 mL ofnonionic contrast medium. However, please monitor and enters the patientfor adequate hydration and urine output for next 24 to 48 hours.[facility] [id number] 21:21:10No acute intracranial hemorrhage or mass effect. Possible intervaldevelopment of left thalamocapsular lacunar infarct, age indeterminate. MRIwith diffusion-weighted imaging is more sensitive for the d etection ofacute ischemia. Preliminary Report Dictated by Resident: Agusto Tarik Salas MD., have reviewed this study and agree with theabove report.CT HEAD WO CONTRAST HISTORY: Neuro deficit(s), subacute, balance issues for last 5 days COMPARISON: CT head without contrast 12/31/2017, 07/02/2016 TECHNIQUE: Contiguous axial imaging to the base of skull was obtained with2.5 mm slices without intravenous contrast. 5 mm axial, coronal, andsagittal reformats were obtained. FINDINGS: The ventricles and cerebral sulci are normal in caliber and configuration.No hydrocephalus, midline shift or pathological extra-axial fluidcollection is present. The basal cisterns are unremarkable. Th ere is no acute intracranial hemorrhage or significant mass effect.Multiple periventricular and cerebral white matter hypodensities couldrelate to chronic small vessel ischemia. The mcnally-white matterdifferentiation is preserved. Left inferior basal ganglia dilatedperivascular space versus lacunar infarct, unchanged compared to priorexam. Possible interval development of left thalamocapsular lacunarinfarct. The mastoid air cells and paranasal air sinuses are clear. The calvariumand central skullbase are unremarkable. 8 mm left supraorbital scalp sebaceous cyst. [facility], Radiant Results Inft User- 09/04/2019 4:22 PM CDTCT HEAD WO CONTRASTHISTORY: Neuro deficit(s), subacute, balance issues for last 5 days COMPARISON: CT head without contrast 12/31/2017, 07/02/2016TECHNIQUE: Contiguous axial imaging to the base of skull was obtained with2.5 mm slices without intravenous contrast. 5 mm axial, coronal, andsagittal reformats were obtained.FINDINGS:The ventricles and cerebral sulci are normal in caliber and configuration.No hydrocephalus, midline shift or pathological extra- axial fluidcollection is present. The basal cisterns are unremarkable.There is no acute intracranial hemorrhage or significant mass effect.Multiple periventricular and cerebral white matter hypodensities couldrelate tochronic small vessel ischemia. The mcnally-white matterdifferentiation is preserved. Left inferior basal ganglia dilatedperivascular space versus lacunar infarct, unchanged compared to priorexam. Possible interval development of left thalamocapsular lacunarinfarct.The mastoid air cells and paranasal air sinuses are clear. The calvariumand central skull base are unremarkable.8 mm left supraorbital scalp sebaceous cyst. IMPRESSIONNo acute intracranial hemorrhage or mass effect. Possible intervaldevelopment of left thalamocapsular lacunar infarct, age indeterminate. MRIwith diffusion-weighted imaging is more sensitive for the detection ofacute ischemia.Preliminary Report Dictated by Resident: Tarik Johnson am, MD., have reviewed this study and agree with theabove report.[facility]2020-07-23 20:40:00 * Test Item Value Reference Range Interpretation Comme nts APPEARANCE (test code = 3837872200) Clear Clear COLOR (test code = 3758171453) Yellow Yellow PH (test code = 3176364066) 4.8-8.0 SP GRAVITY (test code = 4266358762) 1.003-1.030 GLU U QUAL (test code = 3886342278) 50 mg/dL Normal A BLOOD (test code = 3540614827) 2+ Negative A KETONES (test code = 5059394363) Negative Negative PROTEIN (test code = 2887-8) 100 mg/dL Negative A UROBILIN (test code = 2904436992) 2.0 mg/dL Normal A BILIRUBIN (test code = 4431168299) Negative Negative NITRITE (test code = 4279984292) Negative Negative LEUK BING (test code = 5241346146) Negative Negative RBC/HPF (test code = 9209949158) See_Comment H [[employer]] The system which generated this result transmitted reference range: 0 - 3 HPF. The reference range was not used to interpret this result as normal/abnormal. WBC/HPF (test code = 3508585272) See_Comment [[employer]] The system which generated this result transmitted reference range: 0 - 5 HPF. The reference range was not used to interpret this result as normal/abnormal. BACTERIA (test code = 1525953976) Negative Negative MUCOUS (test code = 0084935363) Slight Negative LPF A SQ EPITH (test code = 5333698988) HPF HYAL CAST (test code = 0433553610) See_Comment [[employer]] The system which generated this result transmitted reference range: <=2 LPF. The reference range was not used to interpret this result as normal/abnormal. Lab Interpretation (test code = 36212-0) Abnormal [facility]leGLYCOSYLATED HEMOGLOBIN (A1C)2019-09-04 20:32:00* Test Item Value Reference Range Interpretation Comme nts HGB A1C (test code = 4548-4) 5.9 % 4-6 VLAD (test code = VLAD) %A1C (NGSP) Interpretation (ADA)4.8-5.6 ? ? Normal or (Non-Diabetic Range)5.7-6.4 ? ? Increased Risk (Pre-Diabetic)>6.5 ?Diabetes Indicated Lab Interpretation (test code = 45196-4) Normal [facility] - DRUG SCREEN [id number] 20:27:00* Test Item Value Reference Range Interpretation Comme nts BENZO U (test code = 8448631867) Negative Negative NICOLASA U (test code = 9609002647) Negative Negative AMPHET (test code = 3615647391) Negative Negative THC (test code = 4227453001) Negative Negative METHADONE (test code = 6617593015) Negative Negative Meth U (test code = 4936577530) Negative Negative OPIATES (test code = 5356971359) Negative Negative Cocaine Metabolite (test code = 6518313695) Presumptive Positive Negative A PROPOXY (test code = 2988873080) Negative Negative Tric U (test code = 0990795064) Negative Negative PCP (test code = 2956815264) Negative Negative OXYCOD (test code = 7651033827) Negative Negative VLAD (test code = VLAD) Urine Drug Cutoff Ranges Benzodiazepines: ? ? 150 ng/mLBarbiturates: ?200 ng/mLAmphetamine: ? 500 ng/mLCannabinoids: ?50 ?ng/mLMethadone: ? 200 ng/mLMethamphetamine: ? ? 500 ng/mL Opiates: ? 100 ng/mL or 2000 ng/mLCocaine: ? 150 ng/mLPropoxyphene: ?300 ng/mLTricyclics: ?300 ng/mLOxycodone: ? 100 ng/mLPCP: ? 25 ?ng/mL The results are to be used only for medical (i.e., treatment) purposes. Unconfirmed screening results must not be used for non-medical purposes (e.g., employment testing, legal testing). Lab Interpretation (test code = 24169-4) Abnormal [facility]leTROPONIN [id number] 20:10:00* Test Item Value Reference Range Interpretation Comme nts TROPONIN I (test code = 0107003395) 0.076 ng/mL See_Comment H [Automated message] The system which generated this result transmitted reference range: <=0.034. The reference range was not used to interpret this result as normal/abnormal. VLAD (test code = VLAD) Equal or Less than 0.034 ng/ml---Normal ?Note: Cardiac troponin begins to rise 3-4 hours after the onset of ischemia. Repeat in 4-6 hours if the sample was drawn within 3-4 hours of the onset of the symptom and found normal. Between 0.035 and 0.120 ng/mL--- Borderline. Questionable myocardial injury or necrosis ? ?Note: Serial measurement may be necessary to confirm or exclude the diagnosis of myocardial injury or necrosis; Clinical correlation (symptoms, EKGs, imaging studies, and others) required; Repeat in 4-6 hours if clinically indicated. ? Equal or Higher than 0.121 ng/mL---Abnormal. Myocardial Injury or Necrosis Likely ? Biotin has been reported to cause a negative bias, interpret results relative to patient's use of biotin. ? Lab Interpretation (test code = 27852-7) Abnormal [facility] AzleLIPID PANEL (83715)(TOTAL CHOLESTEROL, TRIGLYCERIDES, HDL)2019-09-04 20:00:00* Test Item Value Reference Range Interpretation Comme nts CHOL (test code = 8084260056) 167 mg/dL 120-200 HDL (test code = 9956047658) 48 mg/dL >40 HDLC RATIO (test code = 9525501861) See_Comment [[employer]] The system which generated this result transmitted reference range: <=5.0. The reference range was not used to interpret this result as normal/abnormal. TRIG (test code = 6626303015) 140 mg/dL 30-170 LDL CHOL (test code = 58429-3) 91 mg/dL See_Comment [[employer]] The system which generated this result transmitted reference range: <=160. The reference range was not used to interpret this result as normal/abnormal. VLDL (test code = 8501267512) 28 mg/dL 5-60 Lab Interpretation (test code = 54707-0) Normal [facility]leCOM. METABOLIC PANEL (77769)2019-09-04 19:59:00* Test Item Value Reference Range Interpretation Comme nts NA (test code = 4209093126) 140 mmol/L 135-145 K (test code = 1036506629) 3.6 mmol/L 3.5-5 CL (test code = 2877971707) 105 mmol/L 98-108 CO2 TOTAL (test code = 3171972622) 26 mmol/L 23-31 AGAP (test code = 2553149115) 2-16 BUN (test code = 5491462943) 31 mg/dL 7-23 H GLUCOSE (test code = 6379226301) 137 mg/dL 70-110 H CREATININE (test code = 3149525237) 2.47 mg/dL 0.6-1.25 H TOTAL BILI (test code = 3768570332) 0.6 mg/dL 0.1-1.1 CALCIUM (test code = 5846336156) 9.4 mg/dL 8.6-10.6 T PROTEIN (test code = 8694940159) 7.7 g/dL 6.3-8.2 ALBUMIN (test code = 5960694489) 4.1 g/dL 3.5-5 ALK PHOS (test code = 8610903469) 77 U/L 34-122 ALTv (test code = 1742-6) 17 U/L 5-50 AST(SGOT) (test code = 3707750358) 28 U/L 13-40 eGFR Calculation (Non-) (test code = 6479425892) mL/min/1.73m2 eGFR Calculation () (test code = 7963191721) mL/min/1.73m2 VLAD (test code = VLAD) Association of Glomerular Filtration Rate (GFR) and Staging of Kidney Disease* + --+ --+ ------+| GFR (mL/min/1.73 m2) ?| With Kidney Damage ?| ?Without Kidney Damage+ --------+ --------+ +| ?>90 ?| ?Stage one ?| ? Normal ?+ ---+ ---+ -------+| ?60-89 ?| ?Stage two ?| ? Decreased GFR ? + --+ --+ ------+| ?30-59 ?| ?Stage three ?| ? Stage three ? + --+ --+ ------+| ?15-29 ?| ?Stage four ? | ? Stage four ?+ ---+ ---+ -------+| ?<15 (or dialysis) ? ?| ?Stage five ? | ? Stage five ?+ ---+ ---+ -------+ *Each stage assumes the associated GFR level has been in effect for at least three months. ?Stages 1 to 5, with or without kidney disease, indicate chronic kidney disease. Notes: Determination of stages one and two (with eGFR >59mL/min/1.73 m2) requires estimation of kidney damage for at least three months as defined by structural or functional abnormalities of the kidney, manifested by either:Pathological abnormalities or Markers of kidney damage (including abnormalities in the composition of the blood or urine or abnormalities in imaging tests). Lab Interpretation (test code = 86049-1) Abnormal [facility] WITH [id number] 19:44:00* Test Item Value Reference Range Interpretation Comme nts WBC (test code = 6690-2) See_Comment [[employer]] The system which generated this result transmitted reference range: 4.20 - 10.70 10*3/?L. The reference range was not used to interpret this result as normal/abnormal. RBC (test code = 789-8) See_Comment [[employer]ated [employer]] The system which generated this result transmitted reference range: 4.26 - 5.52 10*6/?L. The reference range was not used to interpret this result as normal/abnormal. HGB (test code = 718-7) 14.5 g/dL 12.2-16.4 HCT (test code = 4544-3) 44.3 % 38.4-49.3 MCV (test code = 787-2) 85.7 fL 81.7-95.6 MCH (test code = 785-6) 28.0 pg 26.1-32.7 MCHC (test code = 786-4) 32.7 g/dL 31.2-35 RDW-SD (test code = 09158-3) 42.6 fL 38.5-51.6 RDW-CV (test code = 788-0) 13.5 % 12.1-15.4 PLT (test code = 777-3) See_Comment [Automated messa ge] The system which generated this result transmitted reference range: 150 - 328 10*3/?L. The reference range was not used to interpret this result as normal/abnormal. MPV (test code = 40207-8) 10.8 fL 9.8-13 NRBC/100 WBC (test code = 5054508320) See_Comment [Automated me ssage] The system which generated this result transmitted reference range: 0.0 - 10.0 /100 WBCs. The reference range was not used to interpret this result as normal/abnormal. NRBC x10^3 (test code = 3498334681) <0.01 See_Comment [Automated me ssage] The system which generated this result transmitted reference range: 10*3/?L. The reference range was not used to interpret this result as normal/abnormal. GRAN MAT (NEUT) % (test code = 770-8) 52.7 % IMM GRAN % (test code = 9388909381) 0.40 % LYMPH % (test code = 736-9) 32.6 % MONO % (test code = 5905-5) 10.4 % EOS % (test code = 713-8) 3.3 % BASO % (test code = 706-2) 0.6 % GRAN MAT x10^3(ANC) (test code = 2847380835) 2.70 10*3/uL 1.99-6.95 IMM GRAN x10^3 (test code = 3544563637) <0.03 0-0.06 LYMPH x10^3 (test code = 731-0) 1.67 10*3/uL 1.09-3.23 MONO x10^3 (test code = 742-7) 0.53 10*3/uL 0.36-1.02 EOS x10^3 (test code = 711-2) 0.17 10*3/uL 0.06-0.53 BASO x10^3 (test code = 704-7) 0.03 10*3/uL 0.01-0.09 [facility] Consult Notes Date/Time Note Provider Source 2022-10-24 16:56:44 [id number] /[id number]:56:44A ssociated Order(s): CONSULT [facility]ARDIOLOGY [facility] Cardiology Consult NotePatient: Zander MelivnDate of : 1960MRN: [id number] of service: 10/24/2022 Primary Care Physician: PATIENT DOES NOT HAVE A PCPCHIEF COMPLAINT: Chief Complaint Patient presents with GROWTH HISTORY OF PRESENT ILLNESS:Zander Melvin is a 61 year old male presented to the ER for evaluation for skin growth on the left side of the face along with elevated blood pressure.History from patient. Pertinent cardiac related history reviewed from chartPatient reports he ran out of meds 2 weeks ago. He has not taken any blood pressure medicine for the last 2 weeks. ARZATE NYHA class II noted. No worsening ARZATE elicited.No new chest pain history noted.Not established care with nephrology or cardiology team. Unsure regarding the PCP.No chest pain at rest. No PND or orthopnea. No pedal edema. No exertional palpitations or palpitations at rest. No syncopal attacks. Unsure regarding the exact blood pressure medicine he has been taking.Previous Cardiac Studies: IMAGING - I personally reviewed, pertinent results as below: EKG dated 10/24/2022 reviewed shows sinus bradycardia, narrow QRS complex, LVH pattern noted, nonspecific ST-T changes.Echocardiogram dated 06/06/2021 reviewed shows moderate LVH, hyperdynamic LV, normal RV size and function, insufficient TR jet, no significant valve abnormalities noted.Renal artery ultrasound dated 06/06/2021 reviewed shows no significant renal artery disease noted.PAST MEDICAL HISTORY Past Medical History: Diagnosis Date CAD (coronary artery disease) CKD (chronic kidney disease) stage 2, GFR 60-89 ml/min HTN (hypertension) NV (myocardial infarction) Other hyperlipidemia S/P arterial stent Past Surgical History: Procedure Laterality Date DEBRIDEMENT LOWER EXTREMITY (SHX) Left 07/15/2022 Surgeon: Chela Treviño MD; Location: [facility] [place] Family History Problem Relation Age of Onset Breast Cancer Mother Diabetes Brother SOCIAL HISTORYSocial History Socioeconomic History Marital status: Single Number of children: 3 Highest education level: GED or equivalent Occupational History Occupation: disability Tobacco Use Smoking status: Some Days Packs/day: .25 Types: Cigarettes Passive exposure: Past Smokeless tobacco: Never Substance and Sexual Activity Alcohol use: Not Currently Social Determinants of Health Financial Resource Strain: Low Risk (07/14/2022) Overall Financial Resource Strain (CARDIA) Difficulty of Paying Living Expenses: Not hard at all Food Insecurity: No Food Insecurity (07/14/2022) Hunger Vital Sign Worried About Running Out of Food in the Last Year: Never true Ran Out of Food in the Last Year: Never true Transportation Needs: No Transportation Needs (07/14/2022) PRAPARE - Transportation Lack of Transportation (Medical): No Lack of Transportation (Non-Medical): No Physical Activity: Insufficiently Active (07/14/2022) Exercise Vital Sign Days of Exercise per Week: 3 days Minutes of Exercise per Session: 20 min Social Connections: Unknown (07/14/2022) Social Connection and Isolation Panel [NHANES] Frequency of Communication with Friends and Family: More than three times a week Marital Status: Never Housing Stability: Low Risk (07/14/2022) Housing Stability Vital Sign Unable to Pay for Housing in the Last Year: No Number of Places Lived in the Last Year: 1 Unstable Housing in the Last Year: No ALLERGIESNo Known AllergiesMEDICATIONSCurrent Discharge Medication List STOP taking these medications amLODIPine 10 mg tablet Comments: Reason for Stopping: carvediloL (COREG) 12.5 mg tablet Comments: Reason for Stopping: hydrALAZINE 100 mg tablet Comments: Reason for Stopping: povidone-iodine 10 % solution Comments: Reason for Stopping: aspirin 81 mg chewable tablet Comments: Reason for Stopping: meclizine 12.5 mg tablet Comments: Reason for Stopping: Current Facility-Administered Medications: acetaminophen (TYLENOL) tablet 650 mg, 650 mg, Oral, Q6HPRN, Moe Vallejo MD amLODIPine (NORVASC) tablet 10 mg, 10 mg, Oral, DAILY, Moe Vallejo MD, 10 mg at 10/24/22 1505 aspirin chewable tablet 81 mg, 81 mg, Oral, DAILY, Moe Vallejo MD, 81 mg at 10/24/22 1505 heparin (porcine) injection 5,000 Units, 5,000 Units, Subcutaneous, Q12H, Moe Vallejo MD hydralAZINE (APRESOLINE) injection 10 mg, 10 mg, Slow IV Push, Q4HPRN, Moe Vallejo MD hydrALAZINE (APRESOLINE) tablet 100 mg, 100 mg, Oral, TID, Moe Vallejo MD, 100 mg at 10/24/22 1505 HYDROcodone-acetaminophen (NORCO 5) 5-325 mg tablet 1 tablet, 1 tablet, Oral, Q6HPRN, Moe Vallejo MD isosorbide mononitrate (IMDUR) 24 hr tablet 30 mg, 30 mg, Oral, DAILY, Moe Vallejo MD, 30 mg at 10/24/22 1505 morpHINE (4 mg/mL) injection 4 mg, 4 mg, Slow IV Push, Q4HPRN, Moe Vallejo MD ondansetron (ZOFRAN (PF)) injection 4 mg, 4 mg, Slow IV Push, Q6HPRN, Moe Vallejo MDREVIEW OF SYSTEMS:Comprehensive 10-system review was conducted and were negative except for what's noted in the HPI. The following systems were reviewed: Constitutional, cardiovascular, respiratory, gastrointestinal, genitourinary, musculoskeletal, neurologic, psychiatric, endocrinological, and hematological.PHYSICAL EXAMINATION:Vitals: 10/24/22 1320 10/24/22 1322 10/24/22 1617 10/24/22 1618 BP: (!) 199/110 (!) 167/101 (!) 151/91 Pulse: (!) 47 52 56 Resp: 17 18 Temp: 36.2 ?C (97.2 ?F) 36.6 ?C (97.8 ?F) TempSrc: Temporal Artery Temporal Artery SpO2: 100% 98% Weight: 104 kg (229 lb 3.2 oz) Height: 1.803 m (5' 11") General: no apparent distressHEENT: normocephalic atraumaticNeck: supple, no lymphadenopathy, no bruits, no JVDLungs: clear to auscultation bilaterally. No wheezes or rhonchi. No increased work of breathing.Cardio: Regular rate and rhythm, S1&S2 normal, no murmurs, rubs or gallopsAbdomen: soft; non-tender; non-distended; normoactive bowel sounds. : not examinedRectal: not examinedExtremities: no clubbing, cyanosis, or edema.Skin: no rashes, no visible lesions.Neuro: no gross focal deficitsLABS - Reviewed pertinent labs as below:CBC BMP PT/INR WBC (10*3/?L) Date Value 10/24/2022 4.83 NA (mmol/L) Date Value 10/24/2022 141 No results found for: "PT" PLT (10*3/?L) Date Value 10/24/2022 194 K (mmol/L) Date Value 10/24/2022 4.4 INR (no units) Date Value 06/04/2021 1.0 HGB (g/dL) Date Value 10/24/2022 12.3 BUN (mg/dL) Date Value 10/24/2022 41 (H) HCT (%) Date Value 10/24/2022 38.0 (L) CREATININE (mg/dL) Date Value 10/24/2022 3.68 (H) LIPID PROFILE GLUCOSE (mg/dL) Date Value 10/24/2022 91 CHOL (mg/dL) Date Value 07/15/2022 145 TSH LDL CHOL (mg/dL) Date Value 07/15/2022 85 TSH (mIU/L) Date Value 10/24/2022 2.58 CARDIAC ENZYMES HDL (mg/dL) Date Value 07/15/2022 47 CK (U/L) Date Value 09/05/2019 185 TRIG (mg/dL) Date Value 07/15/2022 64 LFTs No results found for: "CKMB" AST(SGOT) (U/L) Date Value 10/24/2022 22 TROPONIN I (ng/mL) Date Value 10/24/2022 0.057 (H) ALT(SGPT) (U/L) Date Value 12/31/2017 39 ALTv (U/L) Date Value 10/24/2022 18 No results found for: "BNP" LDL CHOL (mg/dL) Date Value 07/15/2022 85 Recent Labs TROPNI 0.057* Recent Labs TRIG 64 LDL CHOL (mg/dL) Date Value 07/15/2022 85 NT-proBNP (pg/mL) Date Value 06/04/2021 989 (H) ASSESSMENT/PLANPrincipal Problem: Hypertensive emergencyActive Problems: Elevated troponin Essential hypertension Stage 3 chronic kidney disease Hypertensive urgency Acute renal failure superimposed on stage 3 chronic kidney disease Coronary artery disease involving [place] coronary artery of [place] heart without angina pectoris PAD (peripheral artery disease) Elevated brain natriuretic peptide (BNP) levelHypertensive urgency: Per patient patient ran out of blood pressure medications 2 weeks ago. He has not received it yet. Elevated blood pressure at the time of the ER visit noted. Currently improving. Chart reviewed.The discharge summary dated 07/2022 reviewed. Will recommend restarting the blood pressure medications as per the recent discharge summary. Unsure regarding the current medication that he has been taking at home.At the time discharge, patient was noted to be on amlodipine 10 mg daily, carvedilol 12.5 twice daily, hydralazine 100 3 times daily, aspirin 81 daily. Losartan was stopped due to worsening creatinine.We will consider restarting the blood pressure medications similar to before.Based upon the numbers, we can further dose adjust. If need arises we can change amlodipine to Procardia XL for better blood pressure control.We can consider terazosin if needed.EKG dated 10/24/2022 reviewed shows sinus bradycardia, narrow QRS complex, LVH pattern noted, nonspecific ST-T changes.Echocardiogram dated 06/06/2021 reviewed shows moderate LVH, hyperdynamic LV, normal RV size and function, insufficient TR jet, no significant valve abnormalities noted.Renal artery ultrasound dated 06/06/2021 reviewed shows no significant renal artery disease noted. 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 Continue ASA 81 daily.Denies history of any chest pain or any worsening shortness of breath. No indications for ACS.Recommended serial troponins x2.Continue telemetry monitoring.Recent Labs TROPNI 0.057* Acute on CKD 3: The setting of underlying uncontrolled hypertension.Recommended nephrology evaluation. Strongly recommended to establish care with nephrology team due to worsening creatinine. H/o NV/questionable CAD: Consider ASA and statins.Continue with carvedilol 12.5 twice daily. H/o PAD s/p intervention: consider ASA and statins. BNP elevation: Hypertensive heart diseaseElevated NT-proBNP in the setting of underlying worsening CKD.NT-proBNP (pg/mL) Date Value 06/04/2021 989 (H) Dyslipidemia:Recommended goal LDL less than 70 in the setting of underlying history of PAD.Recommended starting Lipitor 40 mg daily. My diagnostic impression and treatment plans were discussed at length with the patient. Thank you for allowing us to participate in the care of Zander Melvin.If you have any questions or concerns please feel free to call our office at [phone]. I would be happy to be of further assistance for Zander Melvin wellbeing. Voice recognition software has been used to create portions of this document. An attempt to proofread has been made to minimize errors. Please do not hesitate to call with any questions. Binu Lopez MD [employer], Division of CardiologyUnBaylor Scott & [facility] 62848-2Ynanylu mrovQQ5610-56-64V61:12:44Consult noteTXT1.2.840.823090.1.13.104.2.7.2.84498 9|[id number] for patient fzqs99835-6Hsqusfb noteLNUTMBUT - [address] XehwGtxmmpbdgEsgystntwDCMJ9330823859YKUHHN QEYVBHHHJOYKZNZQ4790-86-53G45:12:441.2.840 .689325.1.72.3.15|1.2.840.325299.1.13.104. 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 It was protruding and it was bothersome to him. When he arrived to the primary care providers office his blood pressure was significantly elevated. Patient was sent to the emergency room for further evaluation. In the emergency room patient blood pressure was 225/120. Patient was given IV blood pressure medications. Patient blood pressure has improved. We will monitor his troponins and his cardiac status. Echocardiogram and cardiology consultation. However, as long as patient's blood pressure is good and his labs are stable he should be able to go home. For the lesion on the left side of his face patient should follow-up with an ENT or a warehouse shipper. This needs to be removed and pathology needs to be completed. Patient lives in [place], [place]. ENT available in the local area he should follow-up as soon as possible.PAST MEDICAL HISTORY Past Medical History: Diagnosis Date CAD (coronary artery disease) CKD (chronic kidney disease) stage 2, GFR 60-89 ml/min HTN (hypertension) NV (myocardial infarction) Other hyperlipidemia S/P arterial stent PAST SURGICAL HISTORYPast Surgical History: Procedure Laterality Date DEBRIDEMENT LOWER EXTREMITY (SHX) Left 07/15/2022 Surgeon: Chela Treviño MD; [facility]: [facility] ALLERGIESNo Known AllergiesMEDICATIONSCurrent home medication list reviewed:Current Discharge Medication List STOP taking these medications amLODIPine 10 mg tablet Comments: Reason for Stopping: carvediloL (COREG) 12.5 mg tablet Comments: Reason for Stopping: hydrALAZINE 100 mg tablet Comments: Reason for Stopping: povidone-iodine 10 % solution Comments: Reason for Stopping: aspirin 81 mg chewable tablet Comments: Reason for Stopping: meclizine 12.5 mg tablet Comments: Reason for Stopping: FAMILY HISTORYFamily History Problem Relation Age of Onset Breast Cancer Mother Diabetes Brother SOCIAL HISTORYSocial History Socioeconomic History Marital status: Single Number of children: 3 Highest education level: GED or equivalent Occupational History Occupation: disability Tobacco Use Smoking status: Some Days Packs/day: .25 Types: Cigarettes Passive exposure: Past Smokeless tobacco: Never Substance and Sexual Activity Alcohol use: Not Currently Social Determinants of Health Financial Resource Strain: Low Risk (07/14/2022) Overall Financial Resource Strain (CARDIA) Difficulty of Paying Living Expenses: Not hard at all Food Insecurity: No Food Insecurity (07/14/2022) Hunger Vital Sign Worried About Running Out of Food in the Last Year: Never true Ran Out of Food in the Last Year: Never true Transportation Needs: No Transportation Needs (07/14/2022) PRAPARE - Transportation Lack of Transportation (Medical): No Lack of Transportation (Non-Medical): No Physical Activity: Insufficiently Active (07/14/2022) Exercise Vital Sign Days of Exercise per Week: 3 days Minutes of Exercise per Session: 20 min Social Connections: Unknown (07/14/2022) Social Connection and Isolation Panel [NHANES] Frequency of Communication with Friends and Family: More than three times a week Marital Status: Never Housing Stability: Low Risk (07/14/2022) Housing Stability Vital Sign Unable to Pay for Housing in the Last Year: No Number of Places Lived in the Last Year: 1 Unstable Housing in the Last Year: No REVIEW OF PYFQEOI31 systems negative except per HPIPHYSICAL EXAMINATIONBP (!) 174/100 | Pulse 58 | Temp 36.8 ?C (98.3 ?F) | Resp 18 | Ht 1.803 m (5' 11") | Wt 104 kg (229 lb 3.2 oz) | SpO2 99% | BMI 31.97 kg/m? General: No acute distressHEENT: Normal oral mucosa, anicteric sclerae, NCAT; tumor that is protruding from the left side of the face Cardiovascular: RRRLungs: Symmetric expansion, CTABAbdomen: Soft, NTNDMusculoskeletal: No synovitis, normal muscle massGenitourinary: NormalSkin: No rash, lesionsNeuro: AAOx3, no focal deficitsPsych: Normal affectLABS - reviewed pertinent labs as below:CBC BMP PT/INR WBC (10*3/?L) Date Value 10/24/2022 4.83 NA (mmol/L) Date Value 10/24/2022 141 No results found for: "PT" RBC (10*6/?L) Date Value 10/24/2022 4.44 K (mmol/L) Date Value 10/24/2022 4.4 INR (no units) Date Value 06/04/2021 1.0 PLT (10*3/?L) Date Value 10/24/2022 194 CALCIUM (mg/dL) Date Value 10/24/2022 9.1 HGB (g/dL) Date Value 10/24/2022 12.3 CL (mmol/L) Date Value 10/24/2022 108 aPTT HCT (%) Date Value 10/24/2022 38.0 (L) BUN (mg/dL) Date Value 10/24/2022 41 (H) APTT Patient (Seconds) Date Value 06/04/2021 27 CREATININE (mg/dL) Date Value 10/24/2022 3.68 (H) IMAGING - reviewed, pertinent results as below: No results found for this visit on 10/24/22.ASSESSMENT:1. Hypertensive urgency2. History of coronary artery disease3. History of chronic kidney disease4. Facial massPLAN:1. Hypertensive urgency; patient ran out of his medications. Patient's blood pressure was uncontrolled. We restarted his antihypertensives. Patient blood pressure is much better controlled. Echocardiogram and cardiology consultation pending.Patient blood pressure is well controlled and no more chest pain patient should be able to discharge in the morning.2. History of coronary artery disease and chronic kidney disease; continue with supportive care. Echocardiogram pending. Patient may need further outpatient work-up and close follow-up with nephrology and cardiology yearly. GFR has been about the same for the last couple years. Renal ultrasound was done a couple years ago with no significant abnormality. Patient denies any dysuria. Hopefully, with the resumption of his blood pressure medications his renal function will remain stable.3. Patient with facial mass; patient will need to follow-up with dermatology or ENT for excisional biopsy. This should be able to be done as an outpatient. At this time, patient clinically doing well and as long as patient's diagnostic studies are improved patient should be stable for discharge.DVT prophylaxis: enoxaparinStress ulcer prophylaxis: pantoprazoleCode status: FULLAdvanced Care Planning (Z71.89)Above assessment and plan discussed at length with patient, patient expressed full understanding. 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 TECHNICIAN [place] [address]-2Uiuobsh and physical ucfvPZ0368-72-66H96:49:40History and physical noteTXT1.2.840.956314.1.13.104.2.7.2 .763572|[id number] for patient hfvs16779-3Cdcuqve and physical noteLNIM-INTERNAL MEDICINE STAFF-INTERNAL MEDICINE STAFF[address] [id number] BPKELWLSBTCJTNXKHEIEBF4804-73-93B60: 49:401.2.840.259614.1.72.3.15|1.2.84 0.509413.1.13.104.2.7.2.727879_18977 06065 IM-INTERNAL MEDICINE STAFF [facility] Date/Time Note Provider Source 2023-03-10 19:00:00 jKzkK2fYHGt09curRY2V kbzsI272uD0mlx koa3fKZzNNnlZMRYI9KY2qR54ucHda6309 -01-27T19:00:00 Pt dc'd home ambulatory. Pt v/u of dc instructions. 54018-0Nuhjinycs department PzhhWZ1374-19-88L28:29:10Emergency department NoteTXT1.2.840.491623.1.13.104.2.7 .2.559339|[id number] for patient nbkz89390-6TqupBEGMXXPGDFSPduopqxx d C-CDA narrative [id number] D Roman RNLUIS[id number] 82YLVECYZHFBMBCVTNABMLVS8870-72-71 T21:29:101.2.840.692117.1.72.3.15| 1.2.840.500661.1.13.104.2.7.2.7278 [id number] Christelle Junior RN [facility] 2023-03-10 15:46:14 PMGGWagwI1YDBOSp0uXj NcpTAPtPJgeO1H upOmtKTmMeHUftzXj8ww4OU4Ueeeux4880 -01-27T15:46:14 Sister states: " He was getting dialysis at [facility]. He had dialysis on . He doesn't have insurance. He has to go through the ER. We are applying for the medicare to be complete" 96223-3Kvodujinn department Triage oeyvKE5810-51-77K96:50:13Emergency department Triage noteTXT1.2.840.325837.1.13.104.2.7 .2.661330|[id number] for patient dzxj84562-7Mfgqbdyih department NoteLNNARRATIVEFormatted C-CDA narrative [id number] M Cruz RNUT[address] Ys[id number] 56QIPAQKXFPCDGUPKLJMAWEI5324-71-02 T15:50:131.2.840.183636.1.72.3.15| 1.2.840.798503.1.13.104.2.7.2.7278 [id number] Tiana James RN [facility] 2023-03-10 15:41:00 HtvBDN2c8ch72eBrkGYr EhTR9JJHoFGSWf /v0+fvECjoNJfw+rYMEu0fLVvT607T1969 -03-10T15:41:00 [facility]Patient [facility] Vincent of : 1960 62 year oldMRN: [id number] Room:[facility] ED [facility] Physician: PATIENT DOES NOT HAVE A PCPPre- HospitalPatient Escorted by: Family [5]Mode of Arrival: Personal means [1]EMS Treatment Prior to ED Arrival:ED EventsDate/Time Event User Nboxmjqq35/27/24 1629 Medical Screening Begins RASHEEDA RIOJAS MD --03/10/231628 First Provider Evaluation RASHEEDA RIOJAS MD --Chief ComplaintChief ComplaintPatient presents withOtherDialysisED Triage Tiana Vicente RN 03/10/2023 15:50Sister states: " He was getting dialysis at [facility]. He had dialysis on . He doesn't have insurance. He has to go through the ER. We are applying for the medicare to be complete"HPIHistory provided by: PatientIllnessLocation: GeneralizedSeverity: ModerateOnset quality: GradualTiming: ConstantChronicity: NewContext: Pt would like to be evaluated for dialsysis. Currently on dialysis once per weekRelieved by: NothingWorsened by: NothingAssociated symptoms: no abdominal pain, no chest pain, no cough, no fatigue, no fever, no headaches, no nausea, no shortness of breath, no vomiting and no wheezingPast Medical History / ImmunizationsPast Medical History:Diagnosis DateCAD (coronary artery disease)CKD (chronic kidney disease) stage 2, GFR 60-89 ml/minHTN (hypertension)NV (myocardial infarction)Other hyperlipidemiaS/P arterial stentTetanus received in last 5 years: YesChildhood immunizations: Sk-dm-uxgsRzzw Surgical HistoryPast Surgical History:Procedure Laterality DateDEBRIDEMENT LOWER EXTREMITY (SHX) Left 07/15/2022Surgeon: Chela Treviño MD; [facility] LOCATIONAllergiesNo Known AllergiesSocial HistoryTobacco UseSome Days; 0.25 packs/day; Types: CigarettesPassive Exposure: PastSmokeless Tobacco: Never used smokeless tobacco.Alcohol UseNot Currently.Review of SystemsReview of SystemsConstitutional: Negative. Negative for chills, fatigue, fever and unexpected weight change.HENT: Negative.Eyes: Negative. Negative for discharge and itching.Respiratory: Negative. Negative for cough, chest tightness, shortness of breath and wheezing.Cardiovascular: Negative. Negative for chest pain and palpitations.Gastrointestinal: Negative. Negative for abdominal distention, abdominal pain, nausea and vomiting.Genitourinary: Negative. Negative for dysuria, urgency, frequency and flank pain.Musculoskeletal: Negative.Skin: Negative. Negative for color change, pallor and wound.Neurological: Negative. Negative for dizziness, syncope, light-headedness and headaches.Psychiatric/Behavioral: Negative. Negative for agitation and behavioral problems.All other systems reviewed and are negative.Endocrine: Endocrine negativePhysical ExamED Triage Vitals [03/10/23 1550]Weight 102.1 kg (225 lb)Actual or estimated Estimated by patient/family reportHeight 1.803 m (5' 11")BP (!) 150/87Pulse 63Resp 16Temp 37.1 ?C (98.8 ?F)Temp source OralSpO2 100 %Measured on Room airPhysical ExamVitals reviewed.Constitutional:Appearance : He is well-developed.HENT:Head: Normocephalic.Nose: Nose normal.Eyes:Conjunctiva/sclera: Conjunctivae normal.Neck:Trachea: No tracheal deviation.Cardiovascular:Rate and Rhythm: Normal rate.Heart sounds: Murmur heard.No friction rub.Pulmonary:Effort: Pulmonary effort is normal. No respiratory distress.Breath sounds: Normal breath sounds.Abdominal:General: Bowel sounds are normal. There is no distension.Palpations: Abdomen is soft.Tenderness: There is no abdominal tenderness. There is no guarding or rebound.Musculoskeletal:General: Normal range of motion.Cervical back: Normal range of motion and neck supple.Skin:General: Skin is warm and dry.Neurological:Mental Status: He is alert and oriented to person, place, and time.Psychiatric:Behavior: Behavior normal.LabsLab ResultsCBC WITH DIFF - AbnormalResult Value Ref RangeWBC 4.32 4.20 - 10.70 10*3/?LRBC 3.59 (*) 4.26 - 5.52 10*6/?LHGB 10.1 (*) 12.2 - 16.4 g/dLHCT 31.4 (*) 38.4 - 49.3 %MCV 87.5 81.7 - 95.6 fLMCH 28.1 26.1 - 32.7 pgMCHC 32.2 31.2 - 35.0 g/dLRDW-SD 43.8 38.5 - 51.6 fLRDW-CV 13.7 12.1 - 15.4 %PLT 153 150 - 328 10*3/?LMPV 10.3 9.8 - 13.0 fLNRBC/100 WBC 0.0 0.0 - 10.0 /100 WBCsNRBC x10^3 <0.01 10*3/?LGRAN MAT (NEUT) % 46.8 %IMM GRAN % 0.00 %LYMPH % 40.5 %MONO % 8.3 %EOS % 3.7 %BASO % 0.7 %GRAN MAT x10^3(ANC) 2.02 1.99 - 6.95 10*3/uLIMM GRAN x10^3 <0.03 0.00 - 0.06 10*3/uLLYMPH x10^3 1.75 1.09 - 3.23 10*3/uLMONO x10^3 0.36 0.36 - 1.02 10*3/uLEOS x10^3 0.16 0.06 - 0.53 10*3/uLBASO x10^3 0.03 0.01 - 0.09 10*3/uLCOMP. METABOLIC PANEL (10285) - AbnormalNA 140 135 - 145 mmol/LK 4.6 3.5 - 5.0 mmol/LCL 109 (*) 98 - 108 mmol/LCO2 TOTAL 24 23 - 31 mmol/LAGAP 7 2 - 16BUN 66 (*) 7 - 23 mg/dLGLUCOSE 112 (*) 70 - 110 mg/dLCREATININE 6.26 (*) 0.60 - 1.25 mg/dLTOTAL BILI 0.4 0.1 - 1.1 mg/dLCALCIUM 9.0 8.6 - 10.6 mg/Raoul PROTEIN 7.2 6.3 - 8.2 g/dLALBUMIN 3.8 3.5 - 5.0 g/dLALK PHOS 64 34 - 122 U/LALTv 28 5 - 50 U/LAST(SGOT) 27 13 - 40 U/LeGFR 9.4 mL/min/1.49b6KJEVSUAGJO - AbnormalPHOSPHORUS 5.1 (*) 2.5 - 5.0 mg/dLMAGNESIUM - NormalMAGNESIUM 2.0 1.7 - 2.4 mg/dLImagingXR CHEST 1 VWFinal ResultORDERING PROVIDER: RASHEEDA RIOJASHISTORY: pulmonary edemaTECHNIQUE: Frontal views of the Chest.COMPARISON: NoneIMPRESSIONRight IJ line with tip in the SVC.Mild interstitial markings could be related to pulmonary edema. Elevationof the left hemidiaphragm. No pneumothorax or effusion. Thecardiomediastinal silhouette is within normal limits. No visualized acuteosseous abnormality.RL: 7532END REPORT. Orders and TreatmentsOrders Placed This EncounterProceduresXR CHEST 1 VWCBC WITH DIFFCOMP. METABOLIC PANEL (53789)MagnesiumPhosphorusNo orders of the defined types were placed in this encounter.ProceduresProceduresNote s & MDMPatient was evaluated for an emergency medical condition related to Other (Dialysis )Diagnosis/Impression as of 03/10/232035ESRD (end stage renal disease)Medical Decision MakingProblems Addressed:ESRD (end stage renal disease): acute illness or injuryAmount and/or Complexity of Data ReviewedLabs: ordered. Decision-making details documented in ED Course.Radiology: ordered and independent interpretation performed. Decision-making details documented in ED Course.Independent Interpretation by ED physician:Limitations to patient care and compliance: none.Assessment/Summary:The patient is a 62-year-old gentleman who presents for dialysis. The patient is currently on dialysis 1 day a week. He does make urine. He denies any signs of fluid overload. He denies any shortness of breath on exertion. He denies lower extremity edema. Chest x-ray demonstrates mild increased interstitial markings. Hematological studies are within acceptable limits. Potassium is normal. The patient is not altered. The patient does not require emergent dialysis. He was instructed to follow-up with his technology risk intern and continue his current regimen of dialysis. He was discharged to follow-up. He can return for any questions or needs.History, physical exam findings, results of visit, differential diagnosis, medication regimens and plan of future care have been considered. Additional MDM may be found in the ED course. Differential diagnosis considered and final disposition made based on information gathered during evaluation and may not be completely ruled out or specifically listed. Vital signs were rechecked before final disposition.DiagnosisFinal diagnoses:[N18.6] ESRD (end stage renal disease) (Primary)Disposition & Follow UpED DispositionED DispositionDisch - HomeConditionStableComment--Patien t's MedicationsSTART taking these medicationsNo medications on fileCONTINUE taking these medications which have NOT CHANGEDAMLODIPINE 10 MG TABLET Take 1 tablet by mouth in the morning.ASPIRIN 81 MG CHEWABLE TABLET Take 1 tablet by mouth daily.CARVEDILOL (COREG) 12.5 MG TABLET Take 1 tablet by mouth in the morning and 1 tablet in the evening. Take with meals.HYDRALAZINE 100 MG TABLET Take 1 tablet by mouth in the morning and 1 tablet at noon and 1 tablet in the evening.MECLIZINE 12.5 MG TABLET Take 1 tablet by mouth 3 (three) times daily as needed for Dizziness.START taking Modified Medications as PrescribedNo medications on fileSTOP taking these medicationsNo medications on fileDonsandie Riojas Jr. MDClinical Abrasive Grader Helper ProfessorCROWNPOINT HEALTH CARE FACILITY Emergency DepartmentDragon Dictation Software is used frequently and may produce errors. Promptly contact for obvious discrepancies.Rasheeda Riojas MD03/10/232037 45243-6Mzpashnma Emergency department EqkkFS8022-46-30P26:37:59Physician Emergency department NoteTXT1.2.840.610961.1.13.104.2.7 .2.628581|[id number] for patient kraf40486-0Dzqphoutq department NoteLNNARRATIVEFormatted C-CDA narrative textUTPRESBYTERIAN SANTA FE [facility] - [address] Na[id number] 42XDIAQINLFJKOIUPMCZJMEM6276-37-65 T20:37:591.2.840.133402.1.72.3.15| 1.2.840.044897.1.13.104.2.7.2.7278 [id number] [facility] 2022-10-30 14:35:31 pG8r0NnpPSW90jE91MpH lQW+6CHdYPj9Rr uHVNxMofWqTUbzW9QI9cDjQWHowPiC8863 -09-18T14:35:31 ----- Message from Shauna Almeida sent at 10/30/2022 9:15 AM CDT -----Regarding: RE: Follow up apptCalled to schedule patient left a voicemail to call us back to schedule.----- Message -----From: Yohannes Lopez MDSent: 10/27/2022 10:43 PM CDTTo: [facility] PssSubject: Follow up appt Needs follow up with Dr Taylor in 3-4 weeks. 15479-4Higirjmum encounter QyzdIQ5531-20-50T70:35:31Telephone encounter NoteTXT1.2.840.866794.1.13.104.2.7 .2.097492|[id number] for patient qwpx70006-3GwxwTHMHSIQRLS[address] QlvhTqcidqfoxRomrinzsaKUBG23916501 06DGVWJEESHIQTBVBLBSBUWZ7071-37-50 T14:35:311.2.840.702684.1.72.3.15| 1.2.840.941219.1.13.104.2.7.2.7278 [id number] [facility] 2022-10-27 18:34:22 TGkedSi3WG3CDIio/jNj bJjMN7m30mh1S2 Ud0ZXVXW0hE9VEmF1hmuCCSGaiVYyR2791 -09-15T18:34:22 Problem: Venous Thromboembolism, (actual or risk of)Goal: Absence of venous thromboembolism (Risk)Outcome: Adequate for discharge Problem: PainGoal: Control of pain at or below patient's documented comfort goalOutcome: Adequate for dischargeGoal: Reduction in pain sensationOutcome: Adequate for discharge Problem: Falls, Risk ofGoal: Absence of fallsOutcome: Adequate for discharge Problem: Discharge PlanningGoal: Adequate for dischargeOutcome: Adequate for dischargeGoal: Effective communicationOutcome: Adequate for discharge 14222-4Oggi of care jcypUH1740-62-64G78:34:25Plan of care noteTXT1.2.840.286911.1.13.104.2.7 .2.451262|[id number] for patient pzbx97910-5OnsfZE713869515Qszpynm C Johnson RN[address] Tq[id number] 67ZMZIZWIAMCYKSYRTUILHEL5723-94-74 T18:34:251.2.840.161128.1.72.3.15| 1.2.840.433881.1.13.104.2.7.2.7278 [id number] Delores Parsons RN [facility] 2022-10-27 14:35:18 rhKy+PELGod6yPF0o8Zl AhAJtQ1E646AK5 c6SLujfsL2bo2gqSFpqmcsIPPK6maC9015 -09-15T14:35:18 Problem: Venous Thromboembolism, (actual or risk of)Goal: Absence of venous thromboembolism (Risk)Outcome: Progressing as expected Problem: PainGoal: Control of pain at or below patient's documented comfort goalOutcome: Progressing as expectedGoal: Reduction in pain sensationOutcome: Progressing as expected Problem: Falls, Risk ofGoal: Absence of fallsOutcome: Progressing as expected Problem: Discharge PlanningGoal: Adequate for dischargeOutcome: Progressing as expectedGoal: Effective communicationOutcome: Progressing as expected 92474-7Hrcv of care krvaCM9909-14-03F24:36:00Plan of care noteTXT1.2.840.081100.1.13.104.2.7 .2.958077|[id number] for patient jhsz72728-7NmgaRU238844111Scrpefe Roye RN[address] [id number] 40BXACCCQUMMJRTJNAPRLFPR3480-62-99 T14:36:001.2.840.936066.1.72.3.15| 1.2.840.019997.1.13.104.2.7.2.7278 [id number] Fiordaliza Okeefe RN [facility] 2022-10-27 06:44:54 3Fuqj/a8YGqSJ7G+Xm3O 76eXVHV+JELH9A odWTSWvv5gr/vdZ1LDhxOY9jdN3R178283 -09-15T06:44:54 Problem: Venous Thromboembolism, (actual or risk of)Goal: Absence of venous thromboembolism (Risk)Outcome: Progressing as expected Problem: PainGoal: Control of pain at or below patient's documented comfort goalOutcome: Progressing as expectedGoal: Reduction in pain sensationOutcome: Progressing as expected Problem: Falls, Risk ofGoal: Absence of fallsOutcome: Progressing as expected Problem: Discharge PlanningGoal: Adequate for dischargeOutcome: Progressing as expectedGoal: Effective communicationOutcome: Progressing as expected 24119-5Jbzf of care uymsQB1230-78-59T88:44:59Plan of care noteTXT1.2.840.880610.1.13.104.2.7 .2.796345|[id number] for patient kyvh12879-4LkbsGI110521686Ufoemzg Brannon Neida SHAW[id number] 72SQBZEVZUIXGWYSUVUZFHXY0797-30-00 T06:44:591.2.840.438052.1.72.3.15| 1.2.840.482877.1.13.104.2.7.2.7278 [id number] Teresita Carrasquillo RN [facility] 2022-10-26 19:11:55 QXsNLAn5jtFfeb99vwK1 ++Gg9m/Cl0Wl /A+xz2u89q5uvmKXbVCWja6X+jimzk2295T19:11:55 Problem: Venous Thromboembolism, (actual or risk of)Goal: Absence of venous thromboembolism (Risk)Outcome: Progressing as expected Problem: PainGoal: Control of pain at or below patient's documented comfort goalOutcome: Progressing as expectedGoal: Reduction in pain sensationOutcome: Progressing as expected Problem: Falls, Risk ofGoal: Absence of fallsOutcome: Progressing as expected Problem: Discharge PlanningGoal: Adequate for dischargeOutcome: Progressing as expectedGoal: Effective communicationOutcome: Progressing as expected 19783-3Ujzz of care zzxzZV4224-30-52I53:11:58Plan of care noteTXT1.2.840.156607.1.13.104.2.7 .2.004983|[id number] for patient nouy29065-3UoanTH066619321Grknlher Rosales RN[id number] 62QUPZXLUZXQKFNCCMVMNJQG6499-05-63 T19:11:581.2.840.635218.1.72.3.15| 1.2.840.659103.1.13.104.2.7.2.7278 [id number] Ayesha Oh RN [facility] 2022-10-26 01:15:33 XWd+2w/9B61lipMlKxdh 2cREBz4w5VZ1vs bv1dVICwDjDdqj+R0IaNGFL1IeDlXw5500 -09-14T01:15:33 Problem: Venous Thromboembolism, (actual or risk of)Goal: Absence of venous thromboembolism (Risk)Outcome: Progressing as expected Problem: PainGoal: Control of pain at or below patient's documented comfort goalOutcome: Progressing as expectedGoal: Reduction in pain sensationOutcome: Progressing as expected Problem: Falls, Risk ofGoal: Absence of fallsOutcome: Progressing as expected Problem: Discharge PlanningGoal: Adequate for dischargeOutcome: Progressing as expectedGoal: Effective communicationOutcome: Progressing as expected 03200-5Xsxl of care mruwZR4863-63-29K02:15:36Plan of care noteTXT1.2.840.900916.1.13.104.2.7 .2.160661|[id number] for patient [id number] M. Kurian RN[id number] 34IVBVNQJCFPJLUCGJGUWDGW1027-57-07 T01:15:361.2.840.257467.1.72.3.15| 1.2.840.299525.1.13.104.2.7.2.7278 [id number] Shayla Royal RN [facility] 2022-10-25 02:00:19 BbFka38VcAZfsB0IL5kl exT2TWygueFv44 N9zzp1I0Hkpf/TRMRGESWxwlIaXoRY4330 -09-13T02:00:19 Problem: Venous Thromboembolism, (actual or risk of)Goal: Absence of venous thromboembolism (Risk)Outcome: Progressing as expected Problem: PainGoal: Control of pain at or below patient's documented comfort goalOutcome: Progressing as expectedGoal: Reduction in pain sensationOutcome: Progressing as expected Problem: Falls, Risk ofGoal: Absence of fallsOutcome: Progressing as expected Problem: Discharge PlanningGoal: Adequate for dischargeOutcome: Progressing as expectedGoal: Effective communicationOutcome: Progressing as expected 87603-5Igen of care dhjfBA7972-10-10Z58:00:22Plan of care noteTXT1.2.840.362231.1.13.104.2.7 .2.228499|[id number] for patient vxud51795-0BnviYBOZBKYNNI37 [id number] 01OITXKAHMETASBZZXGENDYT0772-21-50 T02:00:221.2.840.414177.1.72.3.15| 1.2.840.622344.1.13.104.2.7.2.7278 [id number] [facility] 2022-10-24 18:42:16 CoYv3NLUzyffN3P5OUib tadDUdfR3SNX7M d3hRZ25E1ef/GflyijLaJvtuHH+hmu90642022T18:42:16 Problem: Venous Thromboembolism, (actual or risk of)Goal: Absence of venous thromboembolism (Risk)Outcome: Progressing as expected Problem: PainGoal: Control of pain at or below patient's documented comfort goalOutcome: Progressing as expectedGoal: Reduction in pain sensationOutcome: Progressing as expected Problem: Falls, Risk ofGoal: Absence of fallsOutcome: Progressing as expected Problem: Discharge PlanningGoal: Adequate for dischargeOutcome: Progressing as expectedGoal: Effective communicationOutcome: Progressing as expected 78311-9Jles of care wlypUJ2139-91-91R45:42:21Plan of care noteTXT1.2.840.932392.1.13.104.2.7 .2.918932|[id number] for patient ecuj78164-5EoitSH822543832Fqgywf A A Arroyo Ramirez RN[id number] 76ROVKAYADCQGSUVSTHEARGE3736-06-23 T18:42:211.2.840.557274.1.72.3.15| 1.2.840.671661.1.13.104.2.7.2.7278 [id number] [facility] 2022-10-24 13:05:15 4YRsAEu34ylzt2VNR8uq OQiq3uJds68Ul/ 6/SqLtBXIpCb8W0b9w4csIy/R5HJvo10482022T13:05:15 Nurse Report Report given to VALERIA Hodge. Chief complaint, assessment findings, and orders reviewed. Plan of care discussed with both nurses. [place] verbalized [place] [address]-9Hfpaghmrf department YsxdBJ3884-70-33Z85:05:50Emergen department NoteTXT1.2.840.113291.1.13.104.2.7 .2.546889|[id number] for patient ctmr42301-7IxfxYS704142639Yantvvls M Rivera RN[id number] 53VKMBWYUVBAXZEQIOYXAZRO3330-67-08 T13:05:501.2.840.826283.1.72.3.15| 1.2.840.730414.1.13.104.2.7.2.7278 [id number] Jessica Weaver RN [facility] 2022-10-24 12:49:11 klohwYH4MWzCPlgE6sxt H4RTluzJB7dKVY /Et+D3FAf0WCVsg90mDKHXUb6wkRbR7355 -09-12T12:49:11 Patient admitted to med-surg for diagnosis of hypertensive emergency, elevated troponin, and BELL.Patient agrees to admission, discussed plan of care with patient.Patient is awake, alert, oriented, resp reg unlabored, color appropriate for race, PIV intact.No adverse reaction to medications administered while in ED.Belongings with patient to unit. 25032-1Djcwvrzed department UyipQJ9782-05-34S80:49:49Emergency department NoteTXT1.2.840.401173.1.13.104.2.7 .2.716974|[id number] for patient uvwd56679-3KgvwKHDEBTDQZA[address] Nk[id number] 07BFSCGOYACVKXZVPTITRXCM0060-55-46 T12:49:491.2.840.874653.1.72.3.15| 1.2.840.684275.1.13.104.2.7.2.7278 [id number] [facility] 2022-10-24 09:29:58 1lbk9FiO39hWBfP/n6dM gMiYeEZ4mbRzO9 p3G1Kcy/carDRcsj0gktff5r7EuiOW5919 -09-12T09:29:58 Noticed growth on face two weeks ago. Thought it was a hair bump but now its hanging off his face. Also needs medications refilled. Has been out of BP meds for over a month. 84850-6Ysqiorlhp department Triage ysolFX3467-22-63Y84:32:41[facility] Triage noteTXT1.2.840.103816.1.13.104.2.7 .2.613097|[id number] for patient ilfx70635-9Ojfeeipdo department [id number] Fief RN[id number] 17RQQEYLICMDMRQNKEFAEMZT3181-56-71 T09:32:411.2.840.658107.1.72.3.15| 1.2.840.307467.1.13.104.2.7.2.7278 [id number] Gabriella Adan RN [facility] 2022-10-24 09:21:00 exRQrm0yWsvb4/VmbtKb xFnS+l4pcKENav KFVOeHWSOHk/AYa08Mi5caugwdHoSA2960 -09-12T09:21:00Associated Order(s): EKG-12 Lead ROUTINE ONCEPre-Procedure Diagnose(s): Hypertensive urgencyPost-Procedure Diagnose(s): Hypertensive urgency Images from the original note were not included.[facility] Emergency Department NotePatient Name: Zander Vincent of : 1960 61 year old maleTreatment Room: [place] [address]/CLLRJM09Zacwrqx Record Number: [id number] Care Physician: PATIENT DOES NOT HAVE A PCPPatient Escorted by: Self [9]Mode of Arrival: Personal means [1]EMS Treatment Prior to ED Arrival: Travel and Exposure Screening:SymptomsDoes patient have any of these symptoms?: (not recorded)Exposure ScreeningHas patient had contact with someone with a communicable disease in the last month?: (not recorded)Diseases exposed to:: (not recorded)Is Patient ?: (not recorded)Exposure Date: (not recorded)Chief Complaint:Chief Complaint Patient presents with GROWTH History of Present Illness:Zander Melvin is a 61 year old male who present to the ED with skin growth on left side of face and elevated blood pressure due to lack of meds x 2 weeks. Patient said he ran out of BP meds. He was found sitting in the ED waiting area. He appears well, not toxic and does not seem to be in any apparent distress at this time. 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 Alcohol Use Not Currently. Past Surgical History:Past Surgical History: Procedure Laterality Date DEBRIDEMENT LOWER EXTREMITY (SHX) Left 07/15/2022 Surgeon: Chela Treviño MD; Location: [facility] Review of Systems: Review of Systems Constitutional: Negative. HENT: Negative. Eyes: Negative. Respiratory: Negative. Cardiovascular: Negative. Elevated blood pressure Gastrointestinal: Negative. Genitourinary: Negative. Musculoskeletal: Negative. Skin: Negative for color change, pallor, rash and wound. Skin growth on left side of face Neurological: Negative. Psychiatric/Behavioral: Negative. Endocrine: Endocrine negativePhysical Exam: ED Triage Vitals [10/24/22 0931] Weight 101.2 kg (223 lb) Actual or estimated Estimated by patient/family report Height 1.803 m (5' 11") BP (!) 225/118 Pulse 58 Resp 16 Temp 36.5 ?C (97.7 ?F) Temp source Oral SpO2 100 % Measured on Room air Physical ExamVitals and nursing note reviewed. Constitutional: General: He is not in acute distress. Appearance: Normal appearance. He is obese. He is not ill-appearing, toxic-appearing or diaphoretic. HENT: Head: Normocephalic. Right Ear: External ear normal. Left Ear: External ear normal. Nose: Nose normal. Mouth/Throat: Mouth: Mucous membranes are moist. Eyes: General: No scleral icterus. Right eye: No discharge. Left eye: No discharge. Conjunctiva/sclera: Conjunctivae normal. Cardiovascular: Rate and Rhythm: Bradycardia present. Pulses: Normal pulses. Heart sounds: Normal heart sounds. No murmur heard. No friction rub. No gallop. Pulmonary: Effort: Pulmonary effort is normal. No respiratory distress. Breath sounds: Normal breath sounds. No stridor. No wheezing, rhonchi or rales. Chest: Chest wall: No tenderness. Abdominal: General: Bowel sounds are normal. There is no distension. Palpations: Abdomen is soft. There is no mass. Tenderness: There is no abdominal tenderness. There is no right CVA tenderness, left CVA tenderness, guarding or rebound. Hernia: No hernia is present. Musculoskeletal: General: No swelling, tenderness, deformity or signs of injury. Normal range of motion. Cervical back: Normal range of motion and neck supple. Right lower leg: No edema. Left lower leg: No edema. Skin: General: Skin is warm and dry. Capillary Refill: Capillary refill takes less than 2 seconds. Coloration: Skin is not jaundiced or pale. Findings: No bruising, erythema, lesion or rash. Neurological: General: No focal deficit present. Mental Status: He is alert and oriented to person, place, and time. Psychiatric: Mood and Affect: Mood normal. Behavior: Behavior normal. Radiology:No orders to display Lab Results:Lab Results - No data to displayEKG:If EKG completed, see Procedure Note. Orders and Treatments:Orders Placed This Encounter Procedures CBC WITH DIFF COMP. METABOLIC PANEL (12190) TROPONIN I No orders of the defined types were placed in this encounter.First Provider Eval:ED Events Date/Time Event User Comments 10/24/22929 Medical Screening Begins ANITRA YEN NP -- 10/24/22929 First Provider Evaluation ANITRA YEN NP -- No notes of EC Admission Criteria type on file.ED COURSELabs, ECGED Course as of 10/24/22 1158 Tue Oct 24, 2022 1119 CREATININE(!): 3.68 [JA] 1119 BUN(!): 41 [JA] 1118 TROPONIN I(!): 0.057 [JA] ED Course User Index[JA] Anitra Yen NP Diagnosis/Impression as of 10/24/22 1158 Hypertensive urgency Acute kidney injury NSTEMI (non-ST elevated myocardial infarction) Hypertensive emergency Procedures: EKG-12 Lead ROUTINE ONCEDate/Time: 10/24/2022 11:35 AMPerformed by: Anitra Yen NPAuthorized by: Anitra Yen NP ECG reviewed by ED Physician in the absence of a lead burner supervisor: yes Previous ECG: Previous ECG: Compared to current Similarity: No changeInterpretation: Interpretation: abnormal Rate: ECG rate: 41 ECG rate assessment: bradycardic Rhythm: Rhythm: sinus bradycardia Ectopy: Ectopy: none QRS: QRS axis: Normal QRS intervals: Normal QRS conduction: normal ST segments: ST segments: NormalT waves: T waves: normal Q waves: Abnormal Q-waves: not present MDM:Zander Melvin is a 61 year old male who present to the ED with skin growth on left side of face and elevated blood pressure due to lack of meds x 2 weeks. Patient said he ran out of BP meds. DDX:SKIN TAGLIPOMASEBACEOUS CYSTHYPERTENSIVE URGENCYELECTROLYTE ABNORMALITYCARDIAC ARRHYTHMIASRENAL INSUFFICIENCYHYPERTENSIVE EMERGENCYMedical Decision MakingZander Melvin is a 61 year old male who present to the ED with skin growth on left side of face and elevated blood pressure due to lack of meds x 2 weeks. Patient said he ran out of BP meds. Problems Addressed:Acute kidney injury: acute illness or injuryHypertensive emergency: acute illness or injuryHypertensive urgency: acute illness or injuryNSTEMI (non-ST elevated myocardial infarction): acute illness or injuryAmount and/or Complexity of Data ReviewedLabs: ordered. Decision-making details documented in ED Course.ECG/medicine tests: ordered. Decision-making details documented in ED Course.Discussion of management or test interpretation with external provider(s): Spoke with admitting physician for patient's admissionRiskPrescription drug management.Decision regarding hospitalization.Risk Details: Patient has hypertensive emergency with elevated troponin. There is a possibility of worsening symptoms or negative outcomes for patient without further care and evaluation beyond ED. Patient is going to benefit from hospital stay, plan discussed with patient and he verbalized understanding and agrees. Flowsheet Documentation: Scoring Tools: No data recorded Disposition/Condition:ED Disposition None Discharge Medications:Patient's Medications START taking these medications No medications on file CONTINUE taking these medications which have NOT CHANGED ASPIRIN 81 MG CHEWABLE TABLET Take 1 tablet by mouth daily. MECLIZINE 12.5 MG TABLET Take 1 tablet by mouth 3 (three) times daily as needed for Dizziness. POVIDONE-IODINE 10 % SOLUTION Apply to area(s) daily. START taking Modified Medications as Prescribed No medications on file STOP taking these medications No medications on file Follow-up:Electronically signed by: Anitra Yen, NP10/24/22 1359 ssociated attestation - Navarro Cat DO - 10/25/2022 1:44 PM CDT I was available for consultation at all times during the patient encounter and present in the Emergency Department providing general supervision. However, I did not see or evaluate the patient. Patient seen and evaluated by CHARLA. 36410-7Nujendokg Emergency department [id number], Phillip1.2.840.668941.1.13.104.2.7 .2.183229GpsknaTjgdrlyRG2176-47-97 T13:44:48[facility] Emergency department NoteTXT1.2.840.296900.1.13.104.2.7 .2.800950|[id number] for patient omes93359-0Skoxfupvk department NoteLNUT[address] Nn[id number] 28GGDEYQYMRHAUKNLCLZHJMI1721-84-33 T13:44:481.2.840.326943.1.72.3.15| 1.2.840.525477.1.13.104.2.7.2.7278 [id number] [facility]
[2023-05-14 15:15] LABS: Absolute Eosinophils 0.3 K/uL (0-0.5); Absolute Lymphocytes (CBC) 1.2 K/uL (0.7-4.9); Absolute Monocytes 0.5 K/uL (0.1-1.3); Absolute Neutrophil 2.7 K/uL (1.8-8.0); Eosinophils % 6.2 % (0-4.4); Hematocrit 26.2 % (39.6-49.0); Hemoglobin 8.5 g/dL (13.6-17.9); Lymphocytes % 25.5 % (15.3-44.8); MCH 26.9 pg (27.0-35.0); MCHC 32.6 g/dL (32.0-36.0); MCV 82.4 fL (80-100); MPV 7.7 fL (7.6-11.3); Monocytes % 10.2 % (3.3-12.3); Neutrophils % 57.1 % (41.7-73.7); Platelets 198 thou/uL (152-406); RBC Red Blood Cell Count 3.18 M/uL (4.33-5.43); Red Cell Distribution Width 13.8 % (12.1-15.2)
[2023-05-14 15:36] LABS: Albumin/Globulin Ratio 0.8 (1.1-1.8); Anion Gap 13.8 mEq/L (5.0-15.0); Bilirubin Total 0.2 mg/dL (0.2-1.0); Globulin 3.8 g/dL (2.3-3.5); Potassium 4.8 mEq/L (3.5-5.1); Protein, Total 6.8 g/dL (6.4-8.2)
--- NOTE | 2023-05-14 15:58 | ER ---
Nurse's Notes [facility] Name: Zander Melvin Age: 62 yrs Sex: Male : 1960 Arrival Date: 05/14/2023 Time: 14:09 Bed DX4 Private MD: Diagnosis: Chronic kidney disease, unspecified Presentation: 05/13 14:25 Chief complaint: Patient states: Last dialysis 4 weeks ago. Checking to see if he can ll1 get dialysis. No pain. Needs clonidine RX. Coronavirus screen: Client denies travel out of the [place] in the last 14 days. At this time, the client does not indicate any symptoms associated with coronavirus-19. Ebola Screen: Patient denies travel to an Ebola-affected area in the 21 days before illness onset. Initial Sepsis Screen: Does the patient meet any 2 criteria? No. Patient's initial sepsis screen is negative. Does the patient have a suspected source of infection? No. Patient's initial sepsis screen is negative. Risk Assessment: Do you want to hurt yourself or someone else? Patient reports no desire to harm self or others. Onset of symptoms was April 13, 2023. 14:25 Method Of Arrival: Ambulatory ll1 14:25 Acuity: JAMES 3 ll1 Triage Assessment: 14:25 General: Appears in no apparent distress. Behavior is calm, cooperative, appropriate ll1 for age, Reports needing dialysis. Pain: Denies pain. Neuro: No deficits noted. Cardiovascular: No deficits noted. Respiratory: No deficits noted. Historical: - Allergies: 14:25 No Known Allergies; ll1 - PMHx: 14:25 DIALYSIS MWF (DIALYSIS MWF); Hypertensive disorder; ll1 - PSHx: 14:25 I\T\D facial abscess; ll1 - Immunization history:: Adult Immunizations up to date. - Infectious Disease History:: Denies. - Social history:: Smoking status: Patient denies any tobacco usage or history of. Screenin:16 [facility] ED Fall Risk Assessment (Adult) History of falling in the last 3 months, ll1 including since admission No falls in past 3 months (0 pts) Confusion or Disorientation No (0 pts) Intoxicated or Sedated No (0 pts) Impaired Gait No (0 pts) Mobility Assist Device Used Yes (1 pt) Altered Elimination No (0 pt) Score/Fall Risk Level 0 - 2 = Low Risk Oriented to surroundings, Hourly rounding (assess needs \T\ fall precautionary measures) done. Abuse screen: Denies threats or abuse. Nutritional screening: No deficits noted. Tuberculosis screening: No symptoms or risk factors identified. Assessment: 17:16 General: Appears in no apparent distress. Behavior is calm, cooperative, appropriate ll1 for age. Pain: Denies pain. Neuro: No deficits noted. Vital Signs: 14:25 BP 183 / 85; Pulse 73; Resp 18; Temp 98.1; Pulse Ox 97% ; Weight 102.06 kg; Height 5 ll1 ft. 11 in. ; Pain 0/10; 17:18 BP 181 / 81; Pulse 71; Resp 17; Temp 98; Pulse Ox 97% on R/A; Pain 0/10; ll1 14:25 Body Mass Index 31.38 (102.06 kg, 180.34 cm) ll1 14:25 Pain Scale: Adult ll1 17:18 Pain Scale: Adult ll1 ED Course: 14:13 Patient arrived in ED. mr 14:23 Rickey Solares MD is Attending Physician. ec2 14:25 Arm band placed on. ll1 14:27 Triage completed. ll1 15:07 CMP Sent. bc6 15:07 CBC with Diff Sent. bc6 15:07 Missed attempt(s): 20 gauge in left antecubital area. bc6 15:07 Initial lab(s) drawn, by me, sent to lab. bc6 15:14 Tamar Thompson is Primary Nurse. cp4 17:16 No provider procedures requiring assistance completed. Patient did not have IV access ll1 during this emergency room visit. 17:17 Patient has correct armband on for positive identification. Call light in reach. ll1 Provided Education on: FOLLOW-UP WITH DIALYSIS AND PCP. Administered Medications: No medications were administered Medication: 17:18 VIS not applicable for this client. ll1 Outcome: 15:58 Discharge ordered by . ec2 16:09 Patient left the ED. ph 17:17 Discharged to home ambulatory, ll1 17:17 Condition: stable 17:17 Discharge instructions given to patient, Instructed on discharge instructions, follow up and referral plans. medication usage, Demonstrated understanding of instructions, follow-up care, medications, Prescriptions given X 1, 17:18 Patient left the ED. ll1 Signatures: Cheryl Weaver Reg Reg mr Zulma Red RN RN ph Errol, VALERIA Jain RN ll1 Vandana Orozco bc6 Rickey Solares MD MD ec2 Tamar Thompson cp4
--- NOTE | 2023-05-14 15:58 | EDPHYS ---
Physician Documentation [facility] Name: Zander Melvin Age: 62 yrs Sex: Male : 1960 Arrival Date: 05/14/2023 Time: 14:09 Bed DX4 Private MD: ED Physician Rickey Solares HPI: 05/13 14:31 This 62 yrs old Black Male presents to ER via Ambulatory with complaints of Dialysis. ec2 14:31 Patient arrives today for evaluation of his kidney function. Patient with history of ec2 ESRD, not dialysis dependent, still makes urine, has not had dialysis in over a month, states that he typically goes to dialysis clinic, they checked his labs and told him overall they look good and does not require dialysis. Patient reports otherwise no concerns, no difficulty breathing, no significant swelling. Also reports that he is out of his clonidine for his hypertension.. Historical: - Allergies: 14:25 No Known Allergies; ll1 - PMHx: 14:25 DIALYSIS MWF (DIALYSIS MWF); Hypertensive disorder; ll1 - PSHx: 14:25 I\T\D facial abscess; ll1 - Immunization history:: Adult Immunizations up to date. - Infectious Disease History:: Denies. - Social history:: Smoking status: Patient denies any tobacco usage or history of. ROS: 14:31 Constitutional: as per hpi ec2 Exam: 14:31 Constitutional: GEN: NAD Head: atraumatic Eyes: EOMI Ears: External ears are ec2 normal. CV: regular rate LUNGS: no respiratory distress ABD: non-distended SKIN: no evidence of rashes MSK: no evidence of trauma NEURO: moves all extremities equally Vital Signs: 14:25 BP 183 / 85; Pulse 73; Resp 18; Temp 98.1; Pulse Ox 97% ; Weight 102.06 kg; Height 5 ll1 ft. 11 in. ; Pain 0/10; 17:18 BP 181 / 81; Pulse 71; Resp 17; Temp 98; Pulse Ox 97% on R/A; Pain 0/10; ll1 14:25 Body Mass Index 31.38 (102.06 kg, 180.34 cm) ll1 14:25 Pain Scale: Adult ll1 17:18 Pain Scale: Adult ll1 MDM: 14:27 Patient medically screened. ec2 14:31 Data reviewed: vital signs. ED course: Patient arrives today for evaluation of kidney ec2 disease. Examination remarkable for well-appearing nontoxic dividual is otherwise in no acute distress. Will obtain lab work to evaluate for renal dysfunction, electrolyte disturbances. Patient otherwise not hypoxic, not in any respiratory distress.. 15:49 ED course: Metabolic profile shows appropriate electrolytes, GFR 5, creatinine at 10. ec2 BUN elevated at 88. Will compare to previous labs here, creatinine previous at 6.54, BUN 69 and GFR of 9. . 15:58 ED course: Will discharge home, prescribed him clonidine to have follow-up primary care ec2 doctor. Return precautions given.. 05/13 14:30 Order name: CBC with Diff; Complete Time: 15:31 ec2 05/13 14:30 Order name: CMP; Complete Time: 15:46 ec2 Administered Medications: No medications were administered Disposition Summary: 05/14/23 15:58 Discharge Ordered Notes: Location: Home ec2 Condition: Stable ec2 Diagnosis - Chronic kidney disease, unspecified ec2 Followup: ec2 - With: Private Physician - When: - Reason: Re-evaluation by your physician Discharge Instructions: - Discharge Summary Sheet ec2 - Chronic Kidney Disease, Adult, Owtd-hp-Gmnc ec2 Forms: - Medication Reconciliation Form ec2 - Thank You Letter ec2 - Antibiotic Education ec2 - Prescription Opioid Use ec2 - Patient Portal Instructions ec2 - Leadership Thank You Letter ec2 Prescriptions: - clonidine HCl 0.1 mg Oral tablet - take 1 tablet ORAL route every day at bedtime; 30 tablet; Refills: 0, Product ec2 Selection Permitted Signatures: Dispatcher [employer] Susy Rodrigues RN RN 1 Rickey Solares MD MD ec2
[2023-05-14 22:58] VITALS: O2SAT 97
[2023-05-14 23:38] VITALS: BP 181/81; TEMP 98
== END 2023-05-14 17:18 | disposition home or self-care (01) ==
LOC: ER 14:09
DX: I12.0 Hypertensive chronic kidney disease with stage 5 chronic kidney disease or end stage renal disease (principal); Z99.2 Dependence on renal dialysis
CPT/HCPCS: 36415; 80053; 85025; 99283

== ENCOUNTER 2023-06-02 13:44 | Observation (INO) | payer OTHER ==
--- OUTSIDE RECORDS SUMMARY | 2023-06-02 13:50 | XMS REPORT | Continuity of Care Document ---
Author Name Unknown Address [address] [facility] [address] [place] [address] [facility] Address [address] [facility] [facility] [address] [place] [address] Care Team Providers Care Civil Cad Designer Name Role Phone PCP, PATIENT DOES NOT HAVE A Primary Care Physic carlita Unavailable RASHEEDA RIOJAS Attending Clinician Unavailable Rasheeda Riojas MD Attending Clinician [phone] Doctor Unassigned, [place] Attending Clinician U lucho Lopez MD, Yohannes Luna Attending Clinician + [phone] MOE VALLEJO Attending Clinician Unavailable Farshad ENCISO, Anitra Attending Clinician + [phone] Moe Vallejo MD Attending Clinician +[phone] CADEN HANNA Attending Clinician Unavailable CHELA TREVIÑO Attending Clinician Unavailable PHILLIP PATEL Attending Clinician Unavailable CARLOS GUZMAN Attending Clinician Unavailab CARLOS Mckeon Attending Clinician Unavailab Alyssa Paris LVN Attending Clinician [phone] Josiah Combs MD Attending Clinician +[phone] Juan F Boyd MD Attending Clinician +[phone] Chela Treviño MD Attending Clinician +[phone] EMIL KHAN Attending Clinician Unavailable Emil Khan MD Attending Clinician +[phone] Cheryl Russell RN Attending Clinician [phone] Navarro Cat DO Attending Clinician + [phone] BARBIE MEJÍA Attending Clinician Unavail able BRYAN SHERMAN Attending Clinician Unavailable Natanael Hendrix MD Attending Clinician [phone] [place] RUSSELL, [place] Attending Clinician [phone] YOHANNES LOPEZ Attending Clinician UnavailNori Chandler Attending Clinician Unavailable RASHEEDA RIOJAS Admitting Clinician Unavailable MOE VALLEJO Admitting Clinician Unavailable Moe Vallejo MD Admitting Clinician [phone] JUAN F BOYD Admitting Clinician Unavailable Juan F Boyd MD Admitting Clinician +[phone] EMIL KHAN Admitting Clinician Unavailable Emil hKan MD Admitting Clinician [phone] [place] RUSSELL, [place] Admitting Clinician [phone] Payers Payer Name Policy Type Policy Number Effective Date Expirati on Date Source MEDICAID PENDING PENDING 2020 00:00:00 [place] [id number] 2023 00:00:00 Problems Condition Name Condition Details Condition Category Status Onset Date Resolution Date Last Treatment Date Treating Clinician Comments Source Hypertensi ve emergency Hypertensi ve emergency Disease Active 10-24 00:00: 00 [facility] Left leg cellulitis Left leg cellulitis Disease Active 07-13 00:00: 00 [facility] BELL (acute kidney injury) BELL (acute kidney injury) Disease Active 06-05 00:00: 00 [facility] [id number] radha premature ovarian failure [id number] radha premature ovarian failure Disease Active 06-05 00:00: 00 [facility] Coronary artery disease involving [facility] coronary artery of [facility] heart without angina pectoris Coronary artery disease involving [facility] coronary artery of [facility] heart without angina pectoris Disease Active 06-05 00:00: 00 [facility] PAD (periphera l artery disease) PAD (periphera l artery disease) Disease Active 2022-0 4-24 00:00: 00 [facility] Elevated brain natriureti c peptide (BNP) level Elevated brain natriureti c peptide (BNP) level Disease Active 4-24 00:00: 00 [facility] Coronary artery disease involving [facility] coronary artery of [facility] heart without angina pectoris Coronary artery disease involving [facility] coronary artery of [facility] heart without angina pectoris Disease Active 424 00:00: 00 [facility] Acute renal failure superimpos ed on stage 3 chronic kidney disease Acute renal failure superimpos ed on stage 3 chronic kidney disease Disease Active 424 00:00: 00 [facility] Hypertensi ve urgency Hypertensi ve urgency Disease Active 4 00:00: 00 [facility] HTN (hypertens ion) HTN (hypertens ion) Disease Active 420 00:00: 00 [facility] Essential hypertensi on Essential hypertensi on Disease Active 0 8-03 00:00: 00 [facility] Stage 3 chronic kidney disease Stage 3 chronic kidney disease Disease Active 0 8-03 00:00: 00 [facility] History of cocaine abuse History of cocaine abuse Disease Active 0 8-03 00:00: 00 [facility] Elevated troponin Elevated troponin Disease Active 0 7-23 00:00: 00 [facility] Elevated troponin Elevated troponin Disease Active 0 7-23 00:00: 00 [facility] Dizziness Dizziness Disease Active 2017-02 1-19 00:00: 00 [facility] Obesity (BMI 30-39.9) Obesity (BMI 30-39.9) Disease Active 20170 5-21 00:00: 00 [facility] Allergies, Adverse Reactions, Alerts Allergy Name Allergy Type Status Severity Reaction(s) Onset Date Inactive Date Treating Clinician Comments Source NO KNOWN ALLERGIE S Drug Class Active [facility] Social History Social Habit Start Date Stop Date Quantity Comments Source History of tobacco use Passive smoker [facility] History SDOH Alcohol Std Drinks [facility] History SDOH Alcohol Binge [facility] History SDOH Social Connections Get Together [facility] History SDOH Social Connections Yazidi [facility] History SDOH Social Connections Membership [facility] History SDOH Social Connections Meetings [facility] Gender identity [facility] ers[facility] Sexual orientation U niversity [facility] History of Social function 2022-10-26 00:00:00 2022-10-26 00:00:00 [facility] Alcohol intake 2022-10-24 00:00:00 2022-10-24 00:00:00 Ex-drinker (finding) [facility] Tobacco use and exposure 2022-07-15 00:00:00 2022-07-15 00:00:00 Smokeless tobacco non-user [facility] Cigarettes smoked current (pack per day) - Reported 2022-07-15 00:00:00 2022-07-15 00:00:00 [facility] History SDOH Alcohol Frequency 2022-07-14 00:00:00 2022-07-14 00:00:00 1 [facility] History SDOH Social Connections Phone 2022-07-14 00:00:00 2022-07-14 00:00:00 5 [facility] History SDOH Social Connections Living 2022-07-14 00:00:00 2022-07-14 00:00:00 7 [facility] History SDOH Physical Activity DPW 2022-07-14 00:00:00 2022-07-14 00:00:00 3 [facility] History SDOH Physical Activity MPS 2022-07-14 00:00:00 2022-07-14 00:00:00 2 [facility] History SDOH Housing Unable to Pay 2022-07-14 00:00:00 2022-07-14 00:00:00 2 [facility] History SDOH Housing Places Lived 2022-07-14 00:00:00 2022-07-14 00:00:00 1 [facility] History SDOH Housing Homeless Last Year 2022-07-14 00:00:00 2022-07-14 00:00:00 2 [facility] History SDOH Financial 2022-07-14 00:00:00 2022-07-14 00:00:00 5 [facility] History SDOH Food Worry 2022-07-14 00:00:00 2022-07-14 00:00:00 1 [facility] History SDOH Food Scarcity 2022-07-14 00:00:00 2022-07-14 00:00:00 1 [facility] History SDOH Transport Med 2022-07-14 00:00:00 2022-07-14 00:00:00 2 [facility] History SDOH Transport Non-Med 2022-07-14 00:00:00 2022-07-14 00:00:00 2 [facility] Education - What is the highest level of school you have completed or the highest degree you have received? 2022-07-13 00:00:00 2022-07-13 00:00:00 GED or equivalent [facility] Exposure to SARS-CoV-2 (event) 2021-05-25 00:00:00 2021-06-04 11:38:00 Not sure [facility] Sex Assigned At 1960 00:00:00 1960 00:00:00 [facility] Smoking Status Start Date Stop Date Source Occasional tobacco smoker 2022-07-15 00:00:00 [facility] Current every day smoker 2020-06-01 00:00:00 [facility] Medications Ordered Medication Name Filled Medication Name Start Date Stop Date Current Medication? Ordering Clinician Indication Dosage Frequency Signature (SIG) Comments Components Source doxazosin 2 mg tablet 10-28 00:00: 00 11-28 04:59 :00 No [id number] 2mg Take 1 tablet by mouth in the morning for 30 days. [facility] isosorbide mononitrate 60 mg 24 hr tablet 10-28 00:00: 00 11-28 04:59 :00 No [id number] 60mg Take 1 tablet by mouth in the morning for 30 days. [facility] doxazosin (CARDURA) tablet 2 mg 10-27 19:15: 00 Yes 2mg 2 mg, Oral, DAILY, First dose on Sun10/27/22 at 1415, Until Discontinu ed, Routine [facility] carvediloL (COREG) 12.5 mg tablet 10-27 18:47: 34 Yes 12.5mg Take 1 tablet by mouth in the morning and 1 tablet in the evening. Take with meals. [facility] hydrALAZINE 100 mg tablet 10-27 18:47: 34 Yes 100mg Take 1 tablet by mouth in the morning and 1 tablet at noon and 1 tablet in the evening. [facility] amLODIPine 10 mg tablet 10-27 18:47: 34 Yes 10mg Take 1 tablet by mouth in the morning. [facility] NIFEdipine ER tablet 60 mg 10-27 13:00: 00 Yes 60mg 60 mg, Oral, BID, First dose (after last modificati on) on Sun10/27/22 at 0800, Until Discontinu ed, Routine [facility] NIFEdipine ER tablet 30 mg 10-27 02:15: 00 10-27 01:34 :00 No 30mg 30 mg, Oral, ONCE, 1 dose, On Sun10/26/22 at 2115, Routine [facility] NIFEdipine ER 60 mg tablet 10-27 00:00: 00 11-27 04:59 :00 No [id number] 60mg Take 1 tablet by mouth in the morning and 1 tablet in the evening. Do all this for 30 days. [facility] NIFEdipine ER tablet 30 mg 10-26 13:00: 00 10-27 01:13 :30 No 30mg 30 mg, Oral, BID, First dose on Sun10/26/22 at 0800, Until Discontinu ed, Routine [facility] carvediloL (COREG) tablet 12.5 mg 10-25 14:45: 00 Yes 12.5mg 12.5 mg, Oral, BID MEALS, First dose on Sun10/25/22 at 0945, Until Discontinu ed, Routine [facility] isosorbide mononitrate (IMDUR) 24 hr tablet 60 mg 10-25 14:00: 00 Yes 60mg 60 mg, Oral, DAILY, First dose (after last modificati on) on Sun10/25/22 at 0900, Until Discontinu ed, Routine [facility] sulfur hexafluorid e microsphr (LUMASON) injection 5 mL 10-25 13:29: 00 10-25 13:45 :00 No [id number] 5mL 5 mL, Intravenou s, ONCE, 1 dose, On Sun10/25/22 at 0829, Routine
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 Restricted medication : CADEN HANNA [facility] heparin (porcine) injection 5,000 Units 10-25 01:00: 00 Yes 5000U 5,000 Units, Subcutaneo us, Q12H, First dose on Sun10/24/22 at 2000, Until Discontinu ed, Routine [facility] hydrALAZINE (APRESOLINE ) tablet 100 mg 10-24 20:00: 00 Yes 100mg 100 mg, Oral, TID, First dose on Sun10/24/22 at 1500, Until Discontinu ed, Routine [facility] aspirin chewable tablet 81 mg 10-24 20:00: 00 Yes 81mg 81 mg, Oral, DAILY, First dose on Sun10/24/22 at 1500, Until Discontinu ed, Routine [facility] isosorbide mononitrate (IMDUR) 24 hr tablet 30 mg 10-24 20:00: 00 10-25 00:35 :04 No 30mg 30 mg, Oral, DAILY, First dose on Sun10/24/22 at 1500, Until Discontinu ed, Routine [facility] amLODIPine (NORVASC) tablet 10 mg 10-24 20:00: 00 10-25 21:08 :19 No 10mg 10 mg, Oral, DAILY, First dose on Sun10/24/22 at 1500, Until Discontinu ed, Routine [facility] ondansetron (ZOFRAN (PF)) injection 4 mg 10-24 19:53: 55 Yes 4mg 4 mg, Slow IV Push, Q6HPRN, Starting on Sun10/24/22 at 1453, Until Discontinu ed, Routine, Nausea and Vomiting (N/V) [facility] acetaminoph en (TYLENOL) tablet 650 mg 10-24 19:53: 44 Yes 650mg 650 mg, Oral, Q6HPRN, Starting on Sun10/24/22 at 1453, Until Discontinu ed, Routine, Pain (scale 1-3), Temp > 38 C [facility] hydralAZINE (APRESOLINE ) injection 10 mg 10-24 19:50: 42 Yes 10mg 10 mg, Slow IV Push, Q4HPRN, Starting on Sun10/24/22 at 1450, Until Discontinu ed, Routine, DBP=>100; SBP=>180 [facility] hydralAZINE (APRESOLINE ) injection 10 mg 10-24 17:00: 00 10-24 17:02 :00 No 10mg 10 mg, Slow IV Push, ONCE, 1 dose, On Sun10/24/22 at 1200, IRVIN [facility] povidone-io dine 10 % solution 07-17 00:00: 00 10-27 00:00 :00 No [id number] Apply to area(s) daily. [facility] amLODIPine 10 mg tablet 07-17 00:00: 00 08-17 04:59 :00 No [id number] 10mg Take 1 tablet by mouth in the morning for 30 days. [facility] levoFLOXaci n (LEVAQUIN) tablet 500 mg 07-16 23:00: 00 07-16 22:46 :39 No 500mg 500 mg, Oral, Q48H, 4 doses, First dose on Sun07/16/22 at 1800, Last dose on Sun07/22/22 at 1800, Routine
Reason for Anti-Infec tive: Documented Infection< br>Documen radha Infection Site: Skin / Soft Tissue
Duration of Therapy: 10 days [facility] carvediloL 12.5 mg tablet 07-16 14:22: 08 07-16 00:00 :00 No 12.5mg Take 1 tablet by mouth in the morning and 1 tablet in the evening. Take with meals. [facility] carvediloL (COREG) tablet 12.5 mg 07-16 13:00: 00 07-16 22:46 :39 No 12.5mg 12.5 mg, Oral, BID MEALS, First dose on 07/16/22 at 0800, Until Discontinu ed, Routine [facility] hydrALAZINE (APRESOLINE ) tablet 100 mg 07-16 01:00: 00 07-16 22:46 :39 No 100mg 100 mg, Oral, TID, First dose (after last modificati on) on 07/15/22 at 2000, Until Discontinu ed, Routine [facility] carvediloL 12.5 mg tablet 07-16 00:00: 00 08-16 04:59 :00 No [id number] 12.5mg Take 1 tablet by mouth in the morning and 1 tablet in the evening. Take with meals. Do all this for 30 days. [facility] hydrALAZINE 100 mg tablet 07-16 00:00: 00 08-16 04:59 :00 No [id number] 100mg Take 1 tablet by mouth in the morning and 1 tablet at noon and 1 tablet in the evening. Do all this for 30 days. [facility] levoFLOXaci n 500 mg tablet 07-16 00:00: 00 07-25 04:59 :00 No [id number] 500mg Take 1 tablet by mouth every 48 (forty-eig ht) hours for 8 days. [facility] clindamycin 300 mg capsule 07-16 00:00: 00 07-24 04:59 :00 No [id number] 300mg Take 1 capsule by mouth 4 (four) times daily for 7 days. [facility] HYDROcodone -acetaminop hen 5-325 mg tablet 07-16 00:00: 00 07-24 04:59 :00 No [id number] 1{tbl} Take 1 tablet by mouth every 6 (six) hours as needed for Pain (scale 7-10) for up to 7 days. Indication s: acute pain [facility] HYDROcodone -acetaminop hen (NORCO 5) 5-325 mg tablet 1 tablet 07-15 19:30: 00 07-15 19:44 :00 No 1{tbl} 1 tablet, Oral, ONCE, 1 dose, On 07/15/22 at 1430, Routine, PACU [facility] lidocaine 1% (PF) (XYLOCAINE) injection 07-15 18:57: 00 07-15 19:13 :43 No PRN, Starting on 07/15/22 at 1357, Until 07/15/22 at 1413, Routine, Intra-op [facility] sodium chloride 0.9 % irrigation solution 07-15 18:52: 00 07-15 19:13 :43 No PRN, Starting on 07/15/22 at 1352, Until 07/15/22 at 1413, Intra-op [facility] povidone-io dine (BETADINE) 10 % solution 07-15 14:00: 00 07-16 22:46 :39 No Topical, DAILY, First dose (after last modificati on) on 07/15/22 at 0900, Until Discontinu ed, Routine [facility] levoFLOXaci n in D5W (LEVAQUIN) 750 mg/150 mL Piggyback 750 mg 07-14 22:15: 00 07-15 00:20 :00 No 750mg 750 mg, IV Piggyback, at 100 mL/hr Administer over 90 Minutes, ONCE, 1 dose, On Sun07/14/22 at 1715, IRVIN
Re ason for Anti-Infec tive: Documented Infection< br>Documen radha Infection Site: Skin / Soft Tissue
Duration of Therapy: 7 days [facility] aspirin chewable tablet 81 mg 07-14 14:00: 00 07-16 22:46 :39 No 81mg 81 mg, Oral, DAILY, First dose on Sun07/14/22 at 0900, Until Discontinu ed, Routine [facility] enoxaparin (LOVENOX) injection 30 mg 07-14 14:00: 00 07-16 22:46 :39 No 30mg 30 mg, Subcutaneo us, DAILY, First dose on Sun07/14/22 at 0900, Until Discontinu ed, Routine [facility] hydrALAZINE (APRESOLINE ) tablet 50 mg 07-14 13:00: 00 07-15 23:05 :14 No 50mg 50 mg, Oral, TID, First dose (after last modificati on) on Sun07/14/22 at 0800, Until Discontinu ed, Routine [facility] cloNIDine (CATAPRES) tablet 0.1 mg 07-14 11:09: 31 07-16 22:46 :39 No .1mg 0.1 mg, Oral, TIDPRN, Starting on Sun07/14/22 at 0609, Until Sun07/16/22 at 1746, Routine, For SBP > 160, DBP > 100 [facility] clindamycin in 5 % [...] After Hours (for ADC, CLC, LCC ONLY) [facility] amLODIPine (NORVASC) tablet 10 mg 07-14 09:30: 00 07-16 22:46 :39 No 10mg 10 mg, Oral, DAILY, First dose (after last modificati on) on Sun07/14/22 at 0430, Until Discontinu ed, Routine [facility] hydrALAZINE (APRESOLINE ) tablet 50 mg 07-14 03:30: 00 07-14 11:07 :50 No 50mg 50 mg, Oral, BID, First dose on Sun07/13/22 at 2230, Until Discontinu ed, Routine [facility] losartan (COZAAR) tablet 50 mg 07-14 03:30: 00 07-14 09:28 :03 No 50mg 50 mg, Oral, DAILY, First dose on Sun07/13/22 at 2230, Until Discontinu ed, Routine [facility] labetaloL (NORMODYNE) injection 10 mg 07-14 03:22: 41 07-16 22:46 :39 No 10mg 10 mg, Slow IV Push, Q4HPRN, Starting on Sun07/13/22 at 2222, Until [place] 07/16/22 at 1746, Routine, For SBP > 160, DBP > 100, HR > 60. Hold for SBP < 110, DBP < 60. HR < 60 [facility] hydralAZINE (APRESOLINE ) injection 10 mg 07-14 03:22: 26 07-16 22:46 :39 No 10mg 10 mg, Slow IV Push, Q4HPRN, Starting on Sun07/13/22 at 2222, Until [place] 07/16/22 at 1746, Routine, DBP=>100; SBP=>160 [facility] hydralAZINE (APRESOLINE ) injection 10 mg 07-14 02:15: 00 07-14 02:23 :00 No 10mg 10 mg, Slow IV Push, ONCE, 1 dose, On Sun07/13/22 at 2115, IRVIN [facility] HYDROcodone -acetaminop hen (NORCO) 10-325 mg tablet 1 tablet 07-14 01:57: 07 07-16 22:46 :39 No 1{tbl} 1 tablet, Oral, Q6HPRN, Starting on Leslee 07/13/22 at 2057, Until [place] 07/16/22 at 1746, Routine, Pain (scale 7-10) [facility] acetaminoph en (TYLENOL) tablet 650 mg 07-14 01:56: 54 07-16 22:46 :39 No 650mg 650 mg, Oral, Q6HPRN, Starting on Leslee 07/13/22 at 205, Until [place] 07/16/22 at 1746, Routine, Pain (scale 1-3) [facility] lactated ringers IV infusion 1,000 mL 07-14 00:30: 00 07-14 03:23 :46 No 1000mL at 150 mL/hr, 1,000 mL, IV Infusion, CONTINUOUS , Starting on Leslee 07/13/22 at 1930, Until [facility] 07/13/22 at 2223, IRVIN [facility] morpHINE (4 mg/mL) injection 4 mg 07-14 00:00: 00 07-13 23:50 :00 No 4mg 4 mg, Slow IV Push, ONCE, 1 dose, On Leslee 07/13/22 at 1900, STAT [facility] ampicillin- sulbactam (UNASYN) 3 g in NaCl 0.9% (NS) 100 mL MINI-BAG 07-13 23:30: 00 07-14 00:24 :00 No 3g 3 g, IV Piggyback, ONCE, 1 dose, On Leslee 07/13/22 at 1830, Administer over 30 Minutes, 100 mL
Reas on for Anti-Infec tive: Documented Infection< br>Documen radha Infection Site: Skin / Soft Tissue
Duration of Therapy: 7 days [facility] ondansetron (ZOFRAN (PF)) injection 4 mg 07-13 23:30: 00 07-13 23:48 :00 No 4mg 4 mg, Slow IV Push, ONCE, 1 dose, On Leslee 07/13/22 at 1830, IRVIN [facility] losartan 50 mg tablet 06-07 00:00: 00 07-16 00:00 :00 No [id number] 50mg Take 1 tablet by mouth daily. [facility] sulfur hexafluorid e microsphr (LUMASON) injection 5 mL 06-06 20:45: 00 06-06 20:45 :00 No [id number] 5mL 5 mL, Intravenou s, ONCE, 1 dose, On Sun06/06/21 at 1545, Routine
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 [facility] hydrALAZINE 50 mg tablet 06-06 00:00: 00 07-16 00:00 :00 No [id number] 50mg Take 1 tablet by mouth 2 (two) times daily. [facility] aspirin chewable tablet 81 mg 06-05 14:00: 00 Yes 81mg 81 mg, Oral, DAILY, First dose on Sun06/05/21 at 0900, Until Discontinu ed, Routine [facility] hydrALAZINE (APRESOLINE ) tablet 50 mg 06-05 13:45: 00 Yes 50mg 50 mg, Oral, BID, First dose on Sun06/05/21 at 0845, Until Discontinu ed, Routine [facility] hydralAZINE (APRESOLINE ) injection 20 mg 06-05 13:09: 23 Yes 20mg 20 mg, Slow IV Push, Q4HPRN, Starting on Sun06/05/21 at 0809, Until Discontinu ed, STAT, DBP=>100; SBP=>180 [facility] niCARdipine (CARDENE I.V.) 40 mg in NaCL 200 mL (RTU) infusion 06-04 19:20: 57 06-05 13:11 :17 No 2.5mg/h 2.5-15 mg/hr (12.5-75 mL/hr), IV Infusion, TITRATE, SBP Goal < 180 mmHg, Starting on 06/04/21 at 1420 [facility] amLODIPine (NORVASC) tablet 10 mg 06-04 18:30: 00 Yes 10mg 10 mg, Oral, DAILY, First dose on 06/04/21 at 1330, Until Discontinu ed, Routine [facility] losartan (COZAAR) tablet 50 mg 06-04 18:30: 00 Yes 50mg 50 mg, Oral, DAILY, First dose on 06/04/21 at 1330, Until Discontinu ed, Routine [facility] hydralAZINE (APRESOLINE ) injection 10 mg 06-04 18:00: 00 06-04 16:54 :00 No 10mg 10 mg, Slow IV Push, ONCE, 1 dose, On 06/04/21 at 1300, IRVIN [facility] hydrALAZINE 100 mg tablet 07-08 00:00: 00 08-08 04:59 :00 No [id number] 100mg Take 1 tablet by mouth every 8 (eight) hours for 30 days. [facility] furosemide 40 mg tablet 07-08 00:00: 00 08-08 04:59 :00 No [id number] 40mg Take 1 tablet by mouth every morning for 30 days. [facility] atorvastati n 40 mg tablet 07-08 00:00: 00 08-08 04:59 :00 No [id number] 40mg Take 1 tablet by mouth at bedtime for 30 days. [facility] carvediloL 12.5 mg tablet 07-08 00:00: 00 08-08 04:59 :00 No [id number] 12.5mg Take 1 tablet by mouth 2 (two) times daily with meals for 30 days. [facility] meclizine 12.5 mg tablet 06-10 00:00: 00 Yes [id number] 12.5mg Take 1 tablet by mouth 3 (three) times daily as needed for Dizziness. [facility] aspirin 81 mg chewable tablet 06-10 00:00: 00 Yes [id number] 81mg Take 1 tablet by mouth daily. [facility] amLODIPine 10 mg tablet 06-10 00:00: 00 06-06 00:00 :00 No [id number] 10mg Take 1 tablet by mouth daily. [facility] furosemide 40 mg tablet 06-04 00:00: 00 07-05 04:59 :00 No [id number] 40mg Take 1 tablet by mouth daily for 30 days. [facility] carvediloL (COREG) tablet 12.5 mg 06-03 22:00: 00 Yes 12.5mg 12.5 mg, Oral, BID MEALS, First dose (after last modificati on) on Sun06/03/20 at 1700, Until Discontinu ed, Routine [facility] hydrALAZINE (APRESOLINE ) tablet 100 mg 06-03 12:00: 00 Yes 100mg 100 mg, Oral, Q8H, First dose (after last modificati on) on Sun06/03/20 at 0700, Until Discontinu ed, Routine [facility] melatonin (MELATIN) tablet 3 mg 06-03 02:30: 00 Yes 3mg 3 mg, Oral, QHS, First dose on Sun06/02/20 at 2130, Until Discontinu ed, Routine [facility] hydrALAZINE 50 mg tablet 06-03 00:00: 00 07-04 04:59 :00 No [id number] 100mg Take 2 tablets by mouth every 8 (eight) hours for 30 days. [facility] atorvastati n 40 mg tablet 06-03 00:00: 00 07-04 04:59 :00 No [id number] 40mg Take 1 tablet by mouth every evening for 30 days. [facility] carvediloL 12.5 mg tablet 06-03 00:00: 00 07-04 04:59 :00 No [id number] 12.5mg Take 1 tablet by mouth 2 (two) times daily with meals for 30 days. [facility] carvediloL (COREG) tablet 6.25 mg 06-02 22:00: 00 06-03 17:25 :28 No 6.25mg 6.25 mg, Oral, BID MEALS, First dose on Sun06/02/20 at 1700, Until Discontinu ed, Routine [facility] furosemide (LASIX) tablet 40 mg 06-02 15:45: 00 Yes 40mg 40 mg, Oral, DAILY, First dose on Sun06/02/20 at 1045, Until Discontinu ed, Routine [facility] amLODIPine (NORVASC) tablet 10 mg 06-02 14:00: 00 Yes 10mg 10 mg, Oral, DAILY, First dose (after last modificati on) on Sun06/02/20 at 0900, Until Discontinu ed, Routine [facility] aspirin chewable tablet 81 mg 06-02 14:00: 00 Yes 81mg 81 mg, Oral, DAILY, First dose on Sun06/02/20 at 0900, Until Discontinu ed, Routine [facility] hydrALAZINE (APRESOLINE ) tablet 50 mg 06-02 14:00: 00 06-03 11:42 :18 No 50mg 50 mg, Oral, Q8H, First dose (after last modificati on) on Sun06/02/20 at 0900, Until Discontinu ed, Routine [facility] magnesium sulfate in water 2 gram/50 mL (4 %) infusion 2 g 06-02 13:00: 00 06-02 15:57 :00 No 2g 2 g, IV Piggyback, ONCE, 1 dose, Sun06/02/20 at 0800, Routine [facility] Potassium Bicarb-Citr ic Acid (EFFER-K) effervescen t tablet 40 mEq 06-02 12:00: 00 Yes 40meq 40 mEq, Oral, DAILY, First dose on Sun06/02/20 at 0700, Until Discontinu ed, Routine [facility] atorvastati n (LIPITOR) tablet 40 mg 06-01 22:00: 00 Yes 40mg 40 mg, Oral, QPM, First dose on Sun06/01/20 at 1700, Until Discontinu ed, Routine [facility] isosorbide mononitrate (IMDUR) 24 hr tablet 30 mg 06-01 21:45: 00 06-03 17:27 :14 No 30mg 30 mg, Oral, DAILY, First dose on Sun06/01/20 at 1645, Until Discontinu ed, Routine [facility] amLODIPine (NORVASC) tablet 5 mg 06-01 21:45: 00 06-02 12:04 :42 No 5mg 5 mg, Oral, DAILY, First dose (after last modificati on) on Sun06/01/20 at 1645, Until Discontinu ed, Routine [facility] nitroglycer in (NITROSTAT) sublingual tablet 0.4 mg 06-01 21:28: 04 Yes .4mg 0.4 mg, Sublingual , Q5MIN PRN, Starting Sun06/01/20 at 1628, Until Discontinu ed, Routine, Chest pain [facility] ondansetron (ZOFRAN (PF)) injection 4 mg 06-01 21:27: 53 Yes 4mg 4 mg, Slow IV Push, Q6HPRN, Starting Sun06/01/20 at 1627, Until Discontinu ed, Routine, Nausea and Vomiting (N/V) [facility] heparin 25,000 Units/250 mL (Premixed Bag) in [...] Rang e, Dosing and Testing: &nbs p;FOR [place], AND [facility] ONLY &nbs p; - aPTT < 35: [...] reached.&n bsp; &nbs p; __ &n bsp;FOR [facility] ONLY - aPTT < 40: & [...] ADJUST INITIAL BOLUS OR INITIAL INFUSION RATE.
[facility] nitroglycer in 50 mg in D5W 250 mL infusion RTU 06-01 19:15: 07 Yes 5ug/min 5-200 mcg/min (1.5-60 mL/hr), IV Infusion, TITRATE, SBP<180, DBP<110, Starting Tu06/01/20 at 1415
In itiate infusion at 5 mcg/min.&n bsp; Titrate by 5 mcg/min every 3 minutes to 5 minutes as needed to achieve and maintain goal blood pressure. Maximum dose = 200 mcg/min. If goal not maintained at maximum allowed dose, contact prescriber .
[facility] HEPARIN SODIUM (PORCINE) 1,000 UNIT/ML BOLUS ACS ORDER SET 06-01 18:45: 00 06-01 18:59 :00 No 4000U 4,000 Units, IV Push, ONCE, 1 dose, Sun06/01/20 at 1345, IRVNI [facility] furosemide (LASIX) injection 40 mg 06-01 18:30: 00 06-01 17:55 :00 No 40mg 40 mg, IV Push, ONCE, 1 dose, Sun06/01/20 at 1330, IRVIN [facility] nitroglycer in (NITROSTAT) sublingual tablet 0.4 mg 06-01 18:30: 00 06-01 17:55 :00 No .4mg 0.4 mg, Sublingual , ONCE, 1 dose, Sun06/01/20 at 1330, IRVIN [facility] hydrALAZINE 100 mg tablet 10-01 00:00: 11-01 04:59 :00 No [id number] 100mg Take 1 tablet by mouth every 6 (six) hours for 30 days. [facility] cloNIDine (CATAPRES) 0.1 mg tablet 10-01 00:00: 11-01 04:59 :00 No [id number] .1mg Take 1 tablet by mouth 2 (two) times daily for 30 days. [facility] NIFEdipine ER (AFEDITAB CR) tablet 60 mg 09-06 01:00: 00 Yes 60mg 60 mg, Oral, BID, First dose on Sun09/06/19 at 2000, Until Discontinu ed, Routine [facility] amLODIPine 10 mg tablet 09-05 00:00: 00 Yes [id number] 10mg Take 1 tablet by mouth daily. [facility] lisinopril 5 mg tablet 09-05 00:00: 00 06-03 00:00 :00 No [id number] 5mg Take 1 tablet by mouth daily. [facility] hydrALAZINE 100 mg tablet 09-05 00:00: 00 10-01 00:00 :00 No [id number] 100mg Take 1 tablet by mouth every 8 (eight) hours. [facility] NaCl 0.9% (NS) IV infusion 1,000 mL 09-04 19:45: 00 Yes 1000mL at 50 mL/hr, IV Infusion, CONTINUOUS , Starting Sun09/05/19 at 1445, Until Discontinu ed, Routine [facility] cloNIDine (CATAPRES) tablet 0.2 mg 09-04 18:30: 00 09-04 17:48 :00 No .2mg 0.2 mg, Oral, ONCE, 1 dose, Sun09/05/19 at 1330, STAT [facility] aspirin chewable tablet 81 mg 09-04 14:00: 00 Yes 81mg 81 mg, Oral, DAILY, First dose on Sun09/05/19 at 0900, Until Discontinu ed, Routine [facility] amLODIPine (NORVASC) tablet 10 mg 09-04 14:00: 00 09-05 17:38 :51 No 10mg 10 mg, Oral, DAILY, First dose on Sun09/05/19 at 0900, Until Discontinu ed, Routine [facility] KCL (KLOR-CON M20) tablet 20 mEq 09-04 14:00: 00 09-04 13:19 :00 No 20meq 20 mEq, Oral, DAILY, 1 dose, First dose on Sun09/05/19 at 0900, Routine [facility] zinc sulfate (ORAZINC) capsule 220 mg 09-04 13:00: 00 Yes 220mg 220 mg, Oral, BID, First dose on Sun09/05/19 at 0800, Until Discontinu ed, Routine [facility] ascorbic acid (vitamin C) (VITAMIN C) tablet 500 mg 09-04 13:00: 00 Yes 500mg 500 mg, Oral, BID, First dose on Sun09/05/19 at 0800, Until Discontinu ed, Routine [facility] heparin 25,000 unit/250 mL (Premixed Bag) in [...] and Testing: ____ &nbs p; FO R [facility] ONLY - aPTT < 35: & [...] c levels are reached.<b r> [facility] heparin 1000 unit/mL injection Soln 4,000 Units 09-04 03:45: 00 09-04 05:04 :00 No 4000U 4,000 Units, IV Push, ONCE, 1 dose, Sun09/04/19 at 2245, [facility] tablet 100 mg 09-04 03:00: 00 Yes 100mg 100 mg, Oral, Q8H, First dose on Sun09/04/19 at 2200, Until Discontinu ed, Routine [facility] heparin (porcine) injection 5,000 Units 09-04 01:00: 00 09-04 03:34 :57 No 5000U 5,000 Units, Subcutaneo us, Q12H, First dose on Sun09/04/19 at 2000, Until Discontinu ed, Routine [facility] NaCl 0.9% (NS) IV infusion 1,000 mL 09-04 00:15: 00 09-04 19:38 :04 No 1000mL at 100 mL/hr, IV Infusion, CONTINUOUS , Starting Sun09/04/19 at 1915, Until Sun09/05/19 at 1438, Routine [facility] cloNIDine (CATAPRES) tablet 0.1 mg 09-03 23:15: 00 09-03 22:14 :00 No .1mg 0.1 mg, Oral, ONCE, 1 dose, Leslee 09/04/19 at 1815, STAT [facility] nitroglycer in (NITROSTAT) sublingual tablet 0.4 mg 09-03 22:51: 25 Yes .4mg 0.4 mg, Sublingual , Q5MIN PRN, Starting Sun09/04/19 at 1751, Until Discontinu ed, Routine, Chest pain [facility] ondansetron (ZOFRAN (PF)) injection 4 mg 09-03 22:51: 02 Yes 4mg 4 mg, Slow IV Push, Q6HPRN, Starting Leslee 09/04/19 at 1751, Until Discontinu ed, Routine, Nausea and Vomiting (N/V) [facility] HYDROcodone -acetaminop hen (NORCO) 10-325 mg tablet 1 tablet 09-03 22:50: 57 Yes 1{tbl} 1 tablet, Oral, Q6HPRN, Starting Sun09/04/19 at 1750, Until Discontinu ed, Routine, Pain (scale 7-10) [facility] traMADol (ULTRAM) tablet 50 mg 09-03 22:50: 49 09-05 22:49 :49 No 50mg 50 mg, Oral, Q8HPRN, Starting Leslee 09/04/19 at 1750, Until 09/06/19 at 1749, Routine, Pain (scale 4-6) [facility] acetaminoph en (TYLENOL) tablet 650 mg 09-03 22:50: 40 Yes 650mg 650 mg, Oral, Q6HPRN, Starting Sun09/04/19 at 1750, Until Discontinu ed, Routine, Pain (scale 1-3) [facility] iohexol (OMNIPAQUE 350 BULK-50 mL) injection 50 mL 09-03 21:30: 00 09-03 21:30 :00 No 50mL 50 mL, Intravenou s, ONCE, 1 dose, Sun09/04/19 at 1630, Routine [facility] aspirin 81 mg chewable tablet 2017-02 00:00: 00 Yes 81mg Take 1 tablet by mouth daily. [facility] amLODIPine 10 mg tablet 2017-02 00:00: 00 09-05 00:00 :00 No 10mg Take 1 tablet by mouth daily. [facility] meclizine 12.5 mg tablet 2017-02 00:00: 00 Yes 12.5mg Take 1 tablet by mouth 3 (three) times daily as needed for Dizziness. [facility] lisinopril 5 mg tablet 2017-02 00:00: 00 09-05 00:00 :00 No 5mg Take 1 tablet by mouth daily. [facility] hydralAZINE 100 mg tablet 2017-02 00:00: 00 09-05 00:00 :00 No 100mg Take 1 tablet by mouth every 8 (eight) hours. [facility] Immunizations Ordered Immunization Name Filled Immunization Name Date Status Comments Source TD Pres-Free 2022-07-14 00:00:00 Completed [facility] TD Pres-Free 2022-07-14 00:00:00 Completed [facility] TD Pres-Free 2022-07-14 00:00:00 Completed [facility] TD Pres-Free 2022-07-14 00:00:00 Completed [facility] TD Pres-Free 2022-07-14 00:00:00 Completed [facility] TD Pres-Free 2022-07-14 00:00:00 Completed [facility] SARS-COV-2 COVID-19 PFIZER VACCINE 2020-07-05 00:00:00 Completed [facility] SARS-COV-2 COVID-19 PFIZER VACCINE 2020-07-05 00:00:00 Completed [facility] SARS-COV-2 COVID-19 PFIZER VACCINE 2020-07-05 00:00:00 Completed [facility] SARS-COV-2 COVID-19 PFIZER VACCINE 2020-07-05 00:00:00 Completed [facility] SARS-COV-2 COVID-19 PFIZER VACCINE 2020-07-05 00:00:00 Completed [facility] SARS-COV-2 COVID-19 PFIZER VACCINE 2020-07-05 00:00:00 Completed [facility] SARS-COV-2 COVID-19 PFIZER VACCINE 2020-07-05 00:00:00 Completed [facility] SARS-COV-2 COVID-19 PFIZER VACCINE 2020-07-05 00:00:00 Completed [facility] SARS-COV-2 COVID-19 PFIZER VACCINE 2020-07-05 00:00:00 Completed [facility] SARS-COV-2 COVID-19 PFIZER VACCINE 2020-07-05 00:00:00 Completed [facility] SARS-COV-2 COVID-19 PFIZER VACCINE 2020-06-05 00:00:00 Completed [facility] SARS-COV-2 COVID-19 PFIZER VACCINE 2020-06-05 00:00:00 Completed [facility] SARS-COV-2 COVID-19 PFIZER VACCINE 2020-06-05 00:00:00 Completed [facility] SARS-COV-2 COVID-19 PFIZER VACCINE 2020-06-05 00:00:00 Completed [facility] SARS-COV-2 COVID-19 PFIZER VACCINE 2020-06-05 00:00:00 Completed [facility] SARS-COV-2 COVID-19 PFIZER VACCINE 2020-06-05 00:00:00 Completed [facility] SARS-COV-2 COVID-19 PFIZER VACCINE 2020-06-05 00:00:00 Completed [facility] SARS-COV-2 COVID-19 PFIZER VACCINE 2020-06-05 00:00:00 Completed [facility] SARS-COV-2 COVID-19 PFIZER VACCINE 2020-06-05 00:00:00 Completed [facility] SARS-COV-2 COVID-19 PFIZER VACCINE 2020-06-05 00:00:00 Completed [facility] SARS-COV-2 COVID-19 PFIZER VACCINE 2020-06-05 00:00:00 Completed [facility] SARS-COV-2 COVID-19 PFIZER VACCINE Unknown Completed [facility] SARS-COV-2 COVID-19 PFIZER VACCINE Unknown Completed [facility] TD Pres-Free Unknown Completed [facility] SARS-COV-2 COVID-19 PFIZER VACCINE Unknown Completed [facility] SARS-COV-2 COVID-19 PFIZER VACCINE Unknown Completed [facility] TD Pres-Free Unknown Completed [facility] Vital Signs Vital Name Observation Time Observation Value Comments S jackie Systolic blood pressure 2023-03-11 01:00:00 152 mm[Hg] [facility] Diastolic blood pressure 2023-03-11 01:00:00 77 mm[Hg] [facility] Heart rate 2023-03-11 01:00:00 57 /min [facility] Respiratory rate 2023-03-11 01:00:00 18 /min [facility] Oxygen saturation in Arterial blood by Pulse oximetry 2023-03-11 01:00:00 98 /min [facility] Body temperature 2023-03-10 21:50:00 37.11 Nae [facility] Body height 2023-03-10 21:50:00 180.3 cm [facility] Body weight 2023-03-10 21:50:00 102.059 kg [facility] BMI 2023-03-10 21:50:00 31.38 kg/m2 [facility] Systolic blood pressure 2022-10-27 22:27:00 162 mm[Hg] [facility] Diastolic blood pressure 2022-10-27 22:27:00 84 mm[Hg] [facility] Heart rate 2022-10-27 22:27:00 81 /min [facility] Oxygen saturation in Arterial blood by Pulse oximetry 2022-10-27 22:27:00 96 /min [facility] Body temperature 2022-10-27 20:40:00 37.39 Nae [facility] Respiratory rate 2022-10-27 20:40:00 18 /min [facility] Body weight 2022-10-27 08:24:00 104.463 kg [facility] BMI 2022-10-27 08:24:00 32.12 kg/m2 [facility] Body height 2022-10-24 18:20:00 180.3 cm [facility] Systolic blood pressure 2022-07-16 16:01:00 168 mm[Hg] [facility] Diastolic blood pressure 2022-07-16 16:01:00 98 mm[Hg] [facility] Heart rate 2022-07-16 16:01:00 56 /min [facility] Body temperature 2022-07-16 16:01:00 36.06 Nae [facility] Respiratory rate 2022-07-16 16:01:00 18 /min [facility] Oxygen saturation in Arterial blood by Pulse oximetry 2022-07-16 16:01:00 97 /min [facility] Body weight 2022-07-16 08:16:00 101.47 kg [facility] BMI 2022-07-16 08:16:00 31.20 kg/m2 [facility] Body height 2022-07-13 22:57:00 180.3 cm [facility] Systolic blood pressure 2022-07-15 19:44:00 156 mm[Hg] [facility] Diastolic blood pressure 2022-07-15 19:44:00 74 mm[Hg] [facility] Heart rate 2022-07-15 19:44:00 56 /min [facility] Respiratory rate 2022-07-15 19:44:00 18 /min [facility] Oxygen saturation in Arterial blood by Pulse oximetry 2022-07-15 19:44:00 97 /min [facility] Body temperature 2022-07-15 16:34:00 36 Nae [facility] Body weight 2022-07-15 05:33:00 101.969 kg [facility] BMI 2022-07-15 05:33:00 31.20 kg/m2 [facility] Body height 2022-07-13 22:57:00 180.3 cm [facility] Systolic blood pressure 2021-06-06 20:29:00 184 mm[Hg] [facility] Diastolic blood pressure 2021-06-06 20:29:00 102 mm[Hg] [facility] Heart rate 2021-06-06 20:29:00 78 /min [facility] Body height 2021-06-06 20:29:00 180.3 cm [facility] Body weight 2021-06-06 20:29:00 112.492 kg [facility] BMI 2021-06-06 20:29:00 34.59 kg/m2 [facility] Body temperature 2021-06-06 17:00:00 36.61 Nae [facility] Oxygen saturation in Arterial blood by Pulse oximetry 2021-06-06 17:00:00 97 /min [facility] Respiratory rate 2021-06-06 13:00:00 24 /min [facility] Heart rate 2020-07-08 17:57:00 64 /min [facility] Oxygen saturation in Arterial blood by Pulse oximetry 2020-07-08 17:57:00 97 /min [facility] Systolic blood pressure 2020-07-08 17:56:00 229 mm[Hg] [facility] Diastolic blood pressure 2020-07-08 17:56:00 121 mm[Hg] [facility] Body temperature 2020-07-08 17:56:00 36.61 Nae [facility] Respiratory rate 2020-07-08 17:56:00 18 /min [facility] Body height 2020-07-08 17:56:00 180.3 cm [facility] Body weight 2020-07-08 17:56:00 108.863 kg [facility] BMI 2020-07-08 17:56:00 33.47 kg/m2 [facility] Systolic blood pressure 2020-06-03 20:10:00 132 mm[Hg] [facility] Diastolic blood pressure 2020-06-03 20:10:00 83 mm[Hg] [facility] Heart rate 2020-06-03 20:10:00 76 /min [facility] Body temperature 2020-06-03 20:10:00 36.72 Nae [facility] Respiratory rate 2020-06-03 20:10:00 20 /min [facility] Oxygen saturation in Arterial blood by Pulse oximetry 2020-06-03 20:10:00 97 /min [facility] Body weight 2020-06-03 00:43:00 112.129 kg [facility] BMI 2020-06-03 00:43:00 34.48 kg/m2 [facility] Body height 2020-06-01 22:23:00 180.3 cm [facility] Systolic blood pressure 2019-10-02 17:01:00 190 mm[Hg] [facility] Diastolic blood pressure 2019-10-02 17:01:00 97 mm[Hg] [facility] Heart rate 2019-10-02 17:01:00 65 /min [facility] Respiratory rate 2019-10-02 16:58:00 19 /min [facility] Body height 2019-10-02 16:58:00 180.3 cm [facility] Body weight 2019-10-02 16:58:00 114.306 kg [facility] BMI 2019-10-02 16:58:00 35.15 kg/m2 [facility] Oxygen saturation in Arterial blood by Pulse oximetry 2019-10-02 16:58:00 98 /min [facility] Systolic blood pressure 2019-10-02 17:01:00 190 mm[Hg] [facility] Diastolic blood pressure 2019-10-02 17:01:00 97 mm[Hg] [facility] Heart rate 2019-10-02 17:01:00 65 /min [facility] Respiratory rate 2019-10-02 16:58:00 19 /min [facility] Body height 2019-10-02 16:58:00 180.3 cm [facility] Body weight 2019-10-02 16:58:00 114.306 kg [facility] BMI 2019-10-02 16:58:00 35.15 kg/m2 [facility] Oxygen saturation in Arterial blood by Pulse oximetry 2019-10-02 16:58:00 98 /min [facility] Systolic blood pressure 2019-09-06 17:35:00 171 mm[Hg] [facility] Diastolic blood pressure 2019-09-06 17:35:00 86 mm[Hg] [facility] Heart rate 2019-09-06 17:35:00 64 /min [facility] Body temperature 2019-09-06 17:35:00 36.61 Nae [facility] Respiratory rate 2019-09-06 17:35:00 17 /min [facility] Oxygen saturation in Arterial blood by Pulse oximetry 2019-09-06 17:35:00 96 /min [place] [facility] Body weight 2019-09-06 08:00:00 116.484 kg [facility] BMI 2019-09-06 08:00:00 34.83 kg/m2 [facility] Body height 2019-09-04 19:08:00 182.9 cm [facility] Procedures Procedure Date / Time Performed Performing Clinician Source XR CHEST 1 VW 2023-03-10 23:27:00 Rasheeda Riojas [facility] ASSIGNMENT OF BENEFITS 2023-03-10 23:12:34 Docto r Unassigned, [place] [facility] PHOSPHORUS 2023-03-10 22:56:00 Rasheeda Riojas [facility] MAGNESIUM 2023-03-10 22:56:00 Rasheeda Riojas [facility] COMP. METABOLIC PANEL ([id number]) 2023-03-10 22:56:00 Shine Rasheeda [facility] CBC WITH DIFF 2023-03-10 [facility] 2023-03-10 21:42:10 Doctor Unassigned, [place] [facility] AUTHORIZATION FOR RELEASE OF PHI 2023-02-28 06:01:00 Doctor Unassigned, [place] [facility] CORTISOL AM 2022-10-27 10:37:00 [facility] 2022-10-27 09:01:00 Catie Chris [facility] BASIC METABOLIC PANEL (NA, K, CL, CO2, GLUCOSE, BUN, CREATININE, CA) 2022-10-27 09:01:00 Catie Chris [facility] PROTEIN CREAT RATIO URINE RANDOM 2022-10-26 21:10:00 Javed Chu [facility] CREATINE KINASE 2022-10-26 20:50:00 Javed Chu [facility] URIC ACID 2022-10-26 20:50:00 Javed Chu [facility] INTACT PTH CALCIUM GROUP 2022-10-26 20:50:00 Javed Chu [facility] US RETROPERITONEAL COMPLETE 2022-10-26 20:30:00 Javed Chu [facility] TROPONIN I 2022-10-25 15:40:00 Genevieve [facility] TRANSTHORACIC ECHO (TTE) COMPLETE W/ CONTRAST 2022-10-25 13:31:00 Moe Vallejo [facility] MAGNESIUM 2022-10-25 08:20:00 Genevieve [facility] TROPONIN I 2022-10-25 08:20:00 Genevieve [facility] BASIC METABOLIC PANEL (NA, K, CL, CO2, GLUCOSE, BUN, CREATININE, CA) 2022-10-25 08:20:00 Genevieve [facility] TROPONIN I 2022-10-25 02:47:00 [facility] 2022-10-24 21:23:00 Genevieve [facility] TROPONIN I 2022-10-24 21:23:00 Genevieve [facility] LIPID PANEL ([id number])(TOTAL CHOLESTEROL, TRIGLYCERIDES, HDL) 2022-10-24 21:23:00 Yohannes Lopez [facility] N-TERMINAL PRO-BNP 2022-10-24 21:23:00 Yohannes Lopez [facility] HB ECG ROUTINE & RHYTHM STRIP 2022-10-24 15:42:04 Anitra Yen [facility] TROPONIN I 2022-10-24 15:22:00 Anitra Yen [facility] THYROID STIMULATING HORMONE 2022-10-24 15:22:00 Moe Vallejo [facility] COMP. METABOLIC PANEL ([id number]) 2022-10-24 15:22:00 Anitra Yen [facility] CBC WITH DIFF 2022-10-24 15:22:00 Anitra Yen [facility] GLYCOSYLATED HEMOGLOBIN (A1C) 2022-10-24 15:22:00 Moe Vallejo [facility] CONSENT/REFUSAL FOR DIAGNOSIS AND TREATMENT 2022-10-24 14:22:41 Doctor Unassigned, [place] [facility] CONSENT/REFUSAL FOR DIAGNOSIS AND TREATMENT 2022-07-27 18:28:45 Doctor Unassigned, [place] [facility] HB ECG ROUTINE & RHYTHM STRIP 2022-07-15 19:10:56 Nolan Jhaveri [facility] HB ECG ROUTINE & RHYTHM STRIP 2022-07-15 19:10:56 Nolan Jhaveri [facility] ASPIRATE OR ABSCESS CULTURE(AEROBIC/ANAEROBIC ) 2022-07-15 18:40:00 Chela Treviño [facility] ASPIRATE OR ABSCESS CULTURE(AEROBIC/ANAEROBIC ) 2022-07-15 18:40:00 Chela Treviño [facility] DEBRIDEMENT LOWER EXTREMITY 2022-07-15 18:03:00 Chela Treviño [facility] MAGNESIUM 2022-07-15 10:08:00 Katina Chris [facility] BASIC METABOLIC PANEL (NA, K, CL, CO2, GLUCOSE, BUN, CREATININE, CA) 2022-07-15 10:08:00 Katina Chris [facility] LIPID PANEL (31668)(TOTAL CHOLESTEROL, TRIGLYCERIDES, HDL) 2022-07-15 10:08:00 Katina Chris [facility] CBC WITHOUT DIFF 2022-07-15 10:08:00 Katina Chris [facility] MAGNESIUM 2022-07-15 10:08:00 Katina Chris [facility] BASIC METABOLIC PANEL (NA, K, CL, CO2, GLUCOSE, BUN, CREATININE, CA) 2022-07-15 10:08:00 Katina Chris [facility] LIPID PANEL (02653)(TOTAL CHOLESTEROL, TRIGLYCERIDES, HDL) 2022-07-15 10:08:00 Katina Chirs [facility] CBC WITHOUT DIFF 2022-07-15 10:08:00 Katina Chris [facility] URINE DRUG (IMMUNOASSAY) - COMPREHENSIVE DRUG SCREEN 2022-07-14 09:54:00 Edsalvador [facility] URINE DRUG (IMMUNOASSAY) - COMPREHENSIVE DRUG SCREEN 2022-07-14 09:54:00 Bridgett [facility] BASIC METABOLIC PANEL (NA, K, CL, CO2, GLUCOSE, BUN, CREATININE, CA) 2022-07-14 09:33:00 Bridgett [facility] CBC WITH DIFF 2022-07-14 09:33:00 Bridgett [facility] BASIC METABOLIC PANEL (NA, K, CL, CO2, GLUCOSE, BUN, CREATININE, CA) 2022-07-14 09:33:00 Bridgett [facility] CBC WITH DIFF 2022-07-14 09:33:00 Bridgett [facility] XR TIBIA FIBULA 2 VW LEFT 2022-07-14 00:13:04 Izabela Combs [facility] XR TIBIA FIBULA 2 VW LEFT 2022-07-14 00:13:04 Izabela Combs [facility] BLOOD CULTURE SCREEN 2022-07-13 23:32:00 Josiah Combs [facility] COMP. METABOLIC PANEL (15809) 2022-07-13 23:32:00 Josiah Combs [facility] CBC WITH DIFF 2022-07-13 23:32:00 [facility] LACTIC ACID WHOLE BLOOD 2022-07-13 23:32:00 Frances Combs [facility] BLOOD CULTURE SCREEN 2022-07-13 23:32:00 Josiah Combs [facility] COMP. METABOLIC PANEL (18332) 2022-07-13 23:32:00 Josiah Combs [facility] CBC WITH DIFF 2022-07-13 23:32:00 [facility] LACTIC ACID WHOLE BLOOD 2022-07-13 23:32:00 Frances Combs [facility] NOTICE OF PRIVACY PRACTICES 2022-07-13 22:34:00 [place], [place] [facility] NOTICE OF PRIVACY PRACTICES 2022-07-13 22:34:00 Doctor Unassigned, [place] [facility] CONSENT/REFUSAL FOR DIAGNOSIS AND TREATMENT 2022-07-13 22:33:20 Doctor Unassigned, [place] [facility] CONSENT/REFUSAL FOR DIAGNOSIS AND TREATMENT 2022-07-13 22:33:20 Doctor Unassigned, [place] [facility] TRANSTHORACIC ECHO (TTE) COMPLETE W/ CONTRAST 2021-06-06 20:29:17 Emil Khan [facility] RENAL ARTERY DUPLEX - BY VASCULAR LAB 2021-06-06 19:52:00 Emil Khan [facility] BASIC METABOLIC PANEL (NA, K, CL, CO2, GLUCOSE, BUN, CREATININE, CA) 2021-06-06 10:50:00 Emil Khan [facility] TROPONIN I 2021-06-05 13:29:00 Emil Khan [facility] PHOSPHORUS 2021-06-05 08:37:00 Emil Khan [facility] MAGNESIUM 2021-06-05 08:37:00 Emil Khan [facility] TROPONIN I 2021-06-05 08:37:00 Tino Olsen [facility] BASIC METABOLIC PANEL (NA, K, CL, CO2, GLUCOSE, BUN, CREATININE, CA) 2021-06-05 08:37:00 Emil Khan [facility] CBC WITH DIFF 2021-06-05 08:37:00 Emil Khan [facility] CRITICAL CARE 2021-06-04 23:17:21 Rasheeda Riojas [facility] TROPONIN I 2021-06-04 20:49:00 Abdullah, Emil [facility] URINE DRUG (IMMUNOASSAY) - COMPREHENSIVE DRUG SCREEN W/O REFLEX 2021-06-04 17:35:00 Rasheeda Riojas [facility] TROPONIN I 2021-06-04 16:53:00 [facility]eda [facility] COMP. METABOLIC PANEL (74322) 2021-06-04 16:53:00 Rasheeda Riojas [facility] CBC WITH DIFF 2021-06-04 16:53:00 Rasheeda Riojas [facility] PROTHROMBIN TIME / INR 2021-06-04 16:53:00 Dannie Riojas [facility] ACTIVATED PARTIAL THRMPLAS BRITTNEY 2021-06-04 16:53:00 Rasheeda Riojas [facility] N-TERMINAL PRO-BNP 2021-06-04 16:53:00 Rasheeda Riojas [facility] HB ECG ROUTINE & RHYTHM STRIP 2021-06-04 16:51:06 Rasheeda Riojas [facility] CONSENT/REFUSAL FOR DIAGNOSIS AND TREATMENT 2021-06-04 16:42:16 Doctor Unassigned, [place] [facility] NOTICE OF PRIVACY PRACTICES 2020-07-08 17:59:10 Doctor Unassigned, [place] [facility] CONSENT/REFUSAL FOR DIAGNOSIS AND TREATMENT 2020-07-08 17:54:43 Doctor Unassigned, [place] [facility] MAGNESIUM 2020-06-03 11:39:00 Cristopher Larry [facility] BASIC METABOLIC PANEL (NA, K, CL, CO2, GLUCOSE, BUN, CREATININE, CA) 2020-06-03 11:39:00 Cristopher Larry [facility] CBC WITH DIFF 2020-06-03 11:38:00 Cristopher Larry [facility] TRANSTHORACIC ECHO (TTE) COMPLETE 2020-06-02 20:23:05 Antwan Bell [facility] TROPONIN I 2020-06-02 11:36:00 Antwan Bell [facility] ACTIVATED PARTIAL THRMPLAS BRITTNEY 2020-06-02 11:35:00 Katey Jurado [facility] ACTIVATED PARTIAL THRMPLAS BRITTNEY 2020-06-02 05:36:00 Katey Jurado [facility] MAGNESIUM 2020-06-02 05:35:00 [facility] 2020-06-02 05:35:00 Ray [facility] BASIC METABOLIC PANEL (NA, K, CL, CO2, GLUCOSE, BUN, CREATININE, CA) 2020-06-02 05:35:00 Ray [facility] PHOSPHORUS 2020-06-01 23:16:00 [facility] 2020-06-01 23:16:00 [facility] THYROID STIMULATING HORMONE 2020-06-01 23:16:00 [facility] LIPID PANEL (98092)(TOTAL CHOLESTEROL, TRIGLYCERIDES, HDL) 2020-06-01 22:05:00 [facility] GLYCOSYLATED HEMOGLOBIN (A1C) 2020-06-01 22:05:00 [facility] 2020-06-01 21:08[facility] (IMMUNOASSAY[facility] - 4 ER PANEL 2020-06-01 19:25:00 Shine [facility] XR CHEST 1 VW 2020-06-01 16:54:29 Shine [facility] HB ECG ROUTINE & RHYTHM STRIP 2020-06-01 16:39:04 Shine [facility] TROPONIN I 2020-06-01 16:36:00 Rasheeda Riojas [facility] HEPATIC FUNCTION PANEL (92065) (ALB,T.PRO,BILI T,BU/BC,ALT,AST,ALK PHOS) 2020-06-01 16:36:00 Shine [facility] BASIC METABOLIC PANEL (NA, K, CL, CO2, GLUCOSE, BUN, CREATININE, CA) 2020-06-01 16:36:00 Shine [facility] CBC WITH DIFF 2020-06-01 16:36:00 [facility] / INR 2020-06-01 16:36:00 Dannie Riojas [facility] ACTIVATED PARTIAL THRMPLAS BRITTNEY 2020-06-01 16:36:00 Rasheeda Riojas [facility] N-TERMINAL PRO-BNP 2020-06-01 16:36:00 Rasheeda Riojas [facility] COVID-19 (ID NOW RAPID TESTING) 2020-06-01 16:36:00 Rasheeda Riojas [facility] LAB ONLY COVID INTERPRETATION 2020-06-01 16:36:00 Rasheeda Riojas [facility] NOTICE OF PRIVACY PRACTICES 2020-06-01 16:09:18 Doctor Unassigned, [place] [facility] CONSENT/REFUSAL FOR DIAGNOSIS AND TREATMENT 2020-06-01 16:06:36 Doctor Unassigned, [place] [facility] AGREEMENTS AUTHORIZATIONS AND IRREVOCABLE ASSIGNMENTS (FORM 2001) 2020-06-01 05:01:00 Doctor Unassigned, [place] [facility] PHYSICIAN ORDERS 2019-10-02 05:01:00 Doctor Unas signed, [place] [facility] BASIC METABOLIC PANEL (NA, K, CL, CO2, GLUCOSE, BUN, CREATININE, CA) 2019-09-06 09:13:00 Ashlee Levin [facility] CBC WITH DIFF 2019-09-06 09:13:00 Ashlee Levin [facility] CAROTID DUPLEX BILATERAL BY VASCULAR LAB 2019-09-05 21:08:50 Emil Khan [facility] ECHO ROUTINE W/DOPPLER COLOR 2019-09-05 15:46:43 Ashlee Levin [facility] CT HEAD WO CONTRAST 2019-09-05 13:59:23 Juan F Boyd [facility] INTACT PTH CALCIUM GROUP 2019-09-05 13:33:00 Javed Chu [facility] URINALYSIS 2019-09-05 13:33:00 Javed Chu [facility] CREATININE, URINE RANDOM 2019-09-05 13:33:00 Javed Chu [facility] TOTAL PROTEIN, URINE RANDOM 2019-09-05 13:33:00 Javed Chu [facility] CREATINE KINASE 2019-09-05 10:32:00 Javed Chu [facility] URIC ACID 2019-09-05 10:32:00 Javed Chu [facility] TROPONIN I 2019-09-05 10:32:00 Ashlee Levin [facility] BASIC METABOLIC PANEL (NA, K, CL, CO2, GLUCOSE, BUN, CREATININE, CA) 2019-09-05 10:32:00 Ashlee Levin [facility] CBC WITH DIFF 2019-09-05 10:32:00 Ashlee Levin [facility] ACTIVATED PARTIAL THRMPLAS BRITTNEY 2019-09-05 10:32:00 Bridgett [facility] TROPONIN I 2019-09-05 04:27:00 Ashlee Levin [facility] ACTIVATED PARTIAL THRMPLAS BRITTNEY 2019-09-05 04:26:00 Bridgett [facility] COVID-19 (ID NOW RAPID TESTING) 2019-09-04 22:39:00 [facility] CT ANGIOGRAM CHEST 2019-09-04 21:27:13 Singer [facility] CT HEAD WO CONTRAST 2019-09-04 19:51:25 Jael Cat [facility] URINALYSIS 2019-09-04 19:45:00 Navarro Cat [facility] ADC / LCC - DRUG SCREEN TRIAGE 2019-09-04 19:45:00 Singer Navarro [facility] TROPONIN I 2019-09-04 19:33:00 Singer [facility] THYROID STIMULATING HORMONE 2019-09-04 19:33:00 Ashlee Levin [facility] COMP. METABOLIC PANEL (70582) 2019-09-04 19:33:00 Singer [facility] LIPID PANEL (52065)(TOTAL CHOLESTEROL, TRIGLYCERIDES, HDL) 2019-09-04 19:33:00 [facility] CBC WITH DIFF 2019-09-04 19:33:00 Navarro Cat [facility] GLYCOSYLATED HEMOGLOBIN (A1C) 2019-09-04 19:33:00 Navarro Cat [facility] EKG-12 LEAD 2019-09-04 19:13:59 Navarro Cat [facility] NOTICE OF PRIVACY PRACTICES 2019-09-04 18:59:24 Doctor Unassigned, [place] [facility] Encounters Start Date/Time End Date/Time Encounter Type Admission Type Attending [facility] Care Facility Care Department Encounter ID Source 2020-12-12 21:45:[address] [facility] [id number] [facility] 2020-12-12 14:04:[address] [facility] [id number] [facility] 2020-12-10 08:27:[address] [facility] [id number] [facility] 2023-03-10 15:55:00 2023-03-10 19:31:00 Emergency [facility] [id number] [facility] 2023-03-10 15:55:00 2023-03-10 19:31:00 Emergency Riojas Rasheeda [facility] 1.2.840.114 350.1.13.10 4.2.7.2.686 [id number] [facility] 2023-02-28 00:00:00 2023-02-28 00:00:00 Orders Only Doctor Unassigned, [place] [facility] 1.2840.114 350.1.13.10 4.2.7.2.686 [id number] [facility] 2023-01-29 11:37:19 2023-01-29 11:37:19 Outpatient [facility] [id number] Sae Tavera 2022-10-30 00:00:00 2022-10-30 00:00:00 Telephone Yohannes Lopez [facility] 1.2840.114 350.1.13.10 4.2.7.2.686 [id number] [facility] 2022-10-24 09:33:00 2022-10-27 18:46:00 Outpatient X MOE VALLEJO [facility] AILYN [id number] [facility] 2022-10-24 09:33:00 2022-10-27 18:46:00 Emergency Anitra Yen Jelani [facility] 1..840.114 350.1.13.10 4.2.7.2.686 [id number] [facility] 2022-09-21 13:20:00 2022-09-21 13:20:00 Outpatient R CADEN HANNA [facility] [id number] [facility] 2022-08-01 16:30:00 2022-08-01 16:30:00 Outpatient R CHELA TREVIÑO [facility] [id number] [facility] 2022-07-27 13:30:00 2022-07-27 13:30:00 Outpatient R PHILLIP PATEL [facility] [id number] [facility] 2022-07-27 00:00:00 2022-07-27 00:00:00 Orders Only Doctor Unassigned, [place] [facility] 1..840.114 350.1.13.10 4.2.7.2.686 [id number] [id number] [facility] 2022-07-24 15:00:00 2022-07-24 15:00:00 Outpatient R CARLOS GUZMAN OGECHUKWU [facility] [id number] [facility] 2022-07-18 00:00:00 2022-07-18 00:00:00 Transition of Care Alyssa Dawson 1.2.840.114 350.1.13.10 4.2.7.2.686 [id number] [facility] 2022-07-13 17:59:00 2022-07-16 15:46:00 Inpatient X BING VALLEJOI [facility] [id number] [facility] 2022-07-13 17:59:00 2022-07-16 15:46:00 Hospital Encounter Josiah Combs Jelani Edionwe Juan F [facility] 1..114 350.1.13.10 4.2.7.2.686 [id number] [facility] 2022-07-15 13:30:00 2022-07-15 14:44:00 Surgery Hudson Chela [facility] 1..114 350.1.13.10 4.2.7.2.686 [id number] [facility] 2021-06-07 00:00:00 2021-06-07 00:00:00 Transition of Care Alyssa Dawson 1..114 350.1.13.10 4.2.7.2.686 [id number] [facility] 2021-06-04 11:38:00 2021-06-06 17:30:00 Inpatient X MADIE EMIL [facility] [id number] [facility] 2021-06-04 11:38:00 2021-06-06 17:30:00 Hospital Encounter RiojasRasheeda Madie Emil [facility] 1..114 350.1.13.10 4.2.7.2.686 [id number] [facility] 2020-08-17 00:00:00 2020-08-17 00:00:00 Patient Outreach Cheryl Russell 1..114 350.1.13.10 4.2.7.2.686 [id number] [facility] 2020-07-08 13:00:00 2020-07-08 13:36:00 Emergency Navarro Cat [facility] 1.2.840.114 350.1.13.10 4.2.7.2.686 [id number] [facility] 2020-07-05 11:30:00 2020-07-05 11:49:05 Outpatient BARBIE SEPULVEDA [facility] [id number] [facility] 2020-06-07 00:00:00 2020-06-07 00:00:00 Patient Outreach Cheryl Russell 1.2840.114 350.1.13.10 4.2.7.2.686 [id number] [facility] 2020-06-05 11:15:00 2020-06-05 11:15:00 Outpatient BRYAN ESCALANTE [facility] [id number] [facility] 2020-06-04 00:00:00 2020-06-04 00:00:00 Transition of Care Alyssa Dawson [place] 1.2840.114 350.1.13.10 4.2.7.2.686 [id number] [facility] 2020-06-01 11:17:00 2020-06-03 16:40:00 Emergency Rasheeda Riojas, Natanael Dee h, [place] [facility] 1.840.114 350.1.13.10 4.2.7.2.686 [id number] [facility] 2020-06-01 00:00:00 2020-06-01 00:00:00 Orders Only Doctor Unassigned, [place] [facility] 1.2840.114 350.1.13.10 4.2.7.2.686 [id number] [facility] 2019-10-30 15:30:00 2019-10-30 15:30:00 Outpatient YOHANNES GREENE [facility] [id number] [facility] 2019-10-10 00:00:00 2019-10-10 00:00:00 Patient Outreach Nori Elias [facility] 1.2.840.114 350.1.13.10 4.2.7.2.686 [id number] [facility] 2019-10-10 00:00:00 2019-10-10 00:00:00 Patient Outreach Nori Elias [facility] 1.2.840.114 350.1.13.10 4.2.7.2.686 [id number] 2019-10-02 11:53:41 2019-10-02 12:26:55 Office Visit Yohannes Lopez [facility] 1.2.840.114 350.1.13.10 4.2.7.2.686 [id number] [facility] 2019-10-02 11:53:41 2019-10-02 12:26:55 Office Visit Yohannes Lopez [facility] 1.2.840.114 350.1.13.10 4.2.7.2.686 [id number] 2019-10-02 11:00:00 2019-10-02 11:00:00 Outpatient R YOHANNES LOPEZ [facility] [id number] [facility] 2019-10-02 00:00:00 2019-10-02 00:00:00 Orders Only Doctor Unassigned, [place] [facility] 1.2.840.114 350.1.13.10 4.2.7.2.686 [id number] [facility] 2019-10-02 00:00:00 2019-10-02 00:00:00 Orders Only Doctor Unassigned, [place] [facility] 1.2.840.114 350.1.13.10 4.2.7.2.686 [id number] 2019-09-29 00:00:00 2019-09-29 00:00:00 Telephone Yohannes Lopez [facility] 1.2.840.114 350.1.13.10 4.2.7.2.686 [id number] [facility] 2019-09-08 00:00:00 2019-09-08 00:00:00 Transition of Care Alyssa Dawson 1.2.840.114 350.1.13.10 4.2.7.2.686 [id number] [facility] 2019-09-04 14:00:49 2019-09-06 16:49:00 Hospital Encounter CatNavarro Yaman [facility] 1.2.840.114 350.1.13.10 4.2.7.2.686 [id number] [facility] Results Test Description Test Time Test Comments Results Resul t Comments Source XR CHEST 1 VW 2023-03-11 00:28:41 ORDERING PROVIDER: ELLEN RIOJAS HISTORY: pulmonary edema TECHNIQUE: Frontal views of the Chest. [facility]PAR[facility]:24[facility]59* Test Item Value Reference Range Interpretation Comme nts MAGNESIUM (test code = 9565326318) 2.1 mg/dL 1.7-2.4 Lab Interpretation (test cod e = 67083-6) [facility] (NA, K, CL, CO2, GLUCOSE, BUN, CREATININE, CA)2022-10-27 10:24:44* Test Item Value Reference Range Interpretation Comme nts NA (test code = 0452423737) 137 mmol/L 135-145 K (test code = 3421715485) 4.1 mmol/L 3.5-5.0 CL (test code = 9816242806) 108 mmol/L 98-108 CO2 TOTAL (test code = 6397430911) 23 mmol/L 23-31 AGAP (test code = 0843132354) 6 2-16 BUN (test code = 8376638367) 49 mg/dL 7-23 H GLUCOSE (test code = 2226095820) 98 mg/dL 70-110 CREATININE (test code = 9441722415) 3.80 mg/dL 0.60-1.25 H CALCIUM (test code = 6980975093) 8.8 mg/dL 8.6-10.6 eGFR (test code = 0817635371) 16.2 mL/min/1.73m2 VLAD (test code = VLAD) [...] imaging tests). Lab Interpretation (test code = 30475-1) Abnormal [facility] Center[facility] [id number] 09:27:25* Test Item Value Reference Range Interpretation Comme nts TROPONIN I (test code = 6371964969) 0.073 ng/mL <=0.034 H VLAD (test code [...] of biotin. Lab Interpretation (test code = 01318-5) Abnormal [facility] Metabolic Panel (NA, K, CL, CO2, GLUCOSE, BUN, CREATININE, CA)2022-10-25 09:07:46* Test Item Value Reference Range Interpretation Comme nts NA (test code = 5460414688) 139 mmol/L 135-145 K (test code = 5043571854) 3.9 mmol/L 3.5-5.0 CL (test code = 6325282665) 109 mmol/L 98-108 H CO2 TOTAL (test code = 2468507128) 24 mmol/L 23-31 AGAP (test code = 6745953963) 6 2-16 BUN (test code = 3406863312) 42 mg/dL 7-23 H GLUCOSE (test code = 2864766840) 88 mg/dL 70-110 CREATININE (test code = 7841862260) 3.38 mg/dL 0.60-1.25 H CALCIUM (test code = 5706349773) 8.6 mg/dL 8.6-10.6 eGFR (test code = 2932628696) 18.6 mL/min/1.73m2 VLAD (test code = VLAD) [...] imaging tests). Lab Interpretation (test code = 48546-8) Abnormal [facility] Center[facility] [id number] 09:07:46* Test Item Value Reference Range Interpretation Comme nts MAGNESIUM (test code = 0293783325) 2.0 mg/dL 1.7-2.4 Lab Interpretation (test cod e = 30036-6) Normal [facility] Center[facility] [id number] 03:54:28* Test Item Value Reference Range Interpretation Comme nts TROPONIN I (test code = 5542612955) 0.065 ng/mL <=0.034 H VLAD (test code [...] of biotin. Lab Interpretation (test code = 90969-3) Abnormal [facility] Center[facility] Whole [id number] 23:43:00* Test Item Value Reference Range Interpretation Comme nts LACTIC ACID (test code = 2576662909) 1.48 mmol/L 0.50-2.20 Lab Interpretation (test cod e = 06670-1) Normal [facility] Center[facility] Whole [id number] 23:43:00* Test Item Value Reference Range Interpretation Comme nts LACTIC ACID (test code = 5130746157) 1.48 mmol/L 0.50-2.20 Lab Interpretation (test cod e = 89673-1) Normal [facility] Center[facility]an[facility]hor[facility] echo (TTE)2021-06-06 21:38:24* Test Item Value Reference Range Interpretation Comme nts LVIDD (test code = 8642141525) 4.80 cm IVS (test code = 6222966404) 1.72 cm Interventricular Septum Diastolic Thickness by 2D (test code = 8276685) 1.72 cm LVPWD (test code = 2761073646) 1.72 cm PW (test code = 9225020094) 1.72 cm 0.6-1.1 EF(Teich) (test code = 4801699172) 67.20 % LVIDS (test code = 8496727963) 3.00 cm FS (test code = 8030761913) 37 % EF - 2D (test code = 99621843) 67.20 % Ao root annulus (test code = 8258446221) 3.5 cm Ao root diam (test code = 3611506592) 3.50 cm Aortic root (test code = 8626541422) 3.5 cm LA size (test code = 3916700715) 4.7 cm LAV(MOD-sp4) (test code = 6366615492) 71.50 mL MV Prop V (test code = 8125740857) 36.90 cm/s E wave decelartion time (test code = 6464785225) 0.27 s MV Peak E Naun (test code = 6113699292) 91.1 cm/s MV Peak A Naun (test code = 9230728982) 124.7 cm/s E/A ratio (test code = 4742256349) ratio MV E/e' septal (test code = 6823446506) 4.3 cm/s Tapse (test code = 4211169946) 2.09 cm Ao peak naun (test code = 7818289204) 191.1 cm/s Ao max PG (test code = 4808398596) 14.90 mm[Hg] AV peak gradient (test code = 4652583018) mmHg Aortic valve mean velocity (test code = 0950821121) 128.5 cm/s Ao VTI (test code = 0286213048) 30.8 cm AV mean gradient (test code = 8918375010) mmHg LA volume (BP) (test code = 1006330529) 82.1 mL LAV(MOD-sp2) (test code = 2110011850) 91.40 mL Radiology Study observation (narrative) (test code = 00985-3) VLAD (test code = VLAD) ?Left?Ventricle: Left [...] (112.5 kg) 2.37 sq meters 184/102 [facility] (NA, K, CL, CO2, GLUCOSE, BUN, CREATININE, CA)2021-06-06 12:00:39* Test Item Value Reference Range Interpretation Comme nts NA (test code = 8678133524) 138 mmol/L 135-145 K (test code = 7962632660) 4.1 mmol/L 3.5-5.0 CL (test code = 7026548545) 107 mmol/L 98-108 CO2 TOTAL (test code = 6026246645) 24 mmol/L 23-31 AGAP (test code = 4118390936) 2-16 BUN (test code = 7279478236) 42 mg/dL 7-23 H GLUCOSE (test code = 5054432952) 114 mg/dL 70-110 H CREATININE (test code = 4896145057) 2.90 mg/dL 0.60-1.25 H CALCIUM (test code = 2391008648) 8.9 mg/dL 8.6-10.6 eGFR (test code = 7889918413) mL/min/1.73m2 VLAD (test code = VLAD) Association [...] imaging tests). Lab Interpretation (test code = 57483-5) [facility]normal [facility] CenterTRCONCEPCIONN [id number] 14:17:20* Test Item Value Reference Range Interpretation Comments TROPONIN I (test code = 1204841809) 0.132 ng/mL See_Comment H [Automated message] The [...] of biotin. Lab Interpretation (test code = 17792-4) Abnormal [facility] CenterTROPONIN [id number] 09:42:43* Test Item Value Reference Range Interpretation Comments TROPONIN I (test code = 1651775996) 0.122 ng/mL See_Comment H [Automated message] The [...] of biotin. Lab Interpretation (test code = 22820-3) Abnormal [facility] CenterMAGNESIUM2022-04-24 09:32:20* Test Item Value Reference Range Interpretation Comme nts MAGNESIUM (test code = 3176499451) 2.0 mg/dL 1.7-2.4 Lab Interpretation (test cod e = 00842-9) Normal [facility] CenterBASI METABOLIC PANEL (NA, K, CL, CO2, GLUCOSE, BUN, CREATININE, CA)2021-06-05 09:32:00* Test Item Value Reference Range Interpretation Comme nts NA (test code = 7363321345) 137 mmol/L 135-145 K (test code = 2082589887) 4.1 mmol/L 3.5-5.0 CL (test code = 5863107958) 105 mmol/L 98-108 CO2 TOTAL (test code = 8233638759) 25 mmol/L 23-31 AGAP (test code = 7839212594) 2-16 BUN (test code = 9969622097) 36 mg/dL 7-23 H GLUCOSE (test code = 9886331902) 132 mg/dL 70-110 H CREATININE (test code = 5699431814) 2.68 mg/dL 0.60-1.25 H CALCIUM (test code = 3992399643) 9.1 mg/dL 8.6-10.6 eGFR (test code = 1452421485) mL/min/1.73m2 VLAD (test code = VLAD) Association [...] imaging tests). Lab Interpretation (test code = 84275-2) Abnormal [facility] CenterPHOSPHORUS2022-04-24 09:32:00* Test Item Value Reference Range Interpretation Comme nts PHOSPHORUS (test code = 1130879635) 3.3 mg/dL 2.5-5.0 Lab Interpretation (test cod e = 57282-3) Normal [facility] WITH [id number] 08:57:19* Test Item Value Reference Range Interpretation Comme nts WBC (test code = 6690-2) See_Comment [Automated messa ge] The system which generated this result transmitted reference range: 4.20 - 10.70 10*3/?L. The reference range was not used to interpret this result as normal/abnormal. RBC (test code = 789-8) See_Comment [Automated [employer] ge] The system which generated this result [...] 32.7 g/dL 31.2-35.0 RDW-SD (test code = 41196-0) 39.6 fL 38.5-51.6 RDW-CV (test code = 788-0) 13.0 % 12.1-15.4 PLT (test code = 777-3) See_Comment [Automated [employer] ge] The system which generated this result transmitted reference range: 150 - 328 10*3/?L. The reference range was not used to interpret this result as normal/abnormal. MPV (test code = 47449-1) 10.5 fL 9.8-13.0 NRBC/100 WBC (test code = 3243045318) See_Comment [Automated me ssage] The system which generated this result transmitted reference range: 0.0 - 10.0 /100 WBCs. The reference range was not used to interpret this result as normal/abnormal. NRBC x10^3 (test code = 2187236741) <0.01 See_Comment [Automated me ssage] The system which generated this result transmitted reference range: 10*3/?L. The reference range was not used to interpret this result as normal/abnormal. GRAN MAT (NEUT) % (test code = 770-8) 61.4 % IMM GRAN % (test code = 2810661506) 0.20 % LYMPH % (test code = 736-9) 27.4 % MONO % (test code = 5905-5) 7.9 % EOS % (test code = 713-8) 2.5 % BASO % (test code = 706-2) 0.6 % GRAN MAT x10^3(ANC) (test code = 8599716318) 2.96 10*3/uL 1.99-6.95 IMM GRAN x10^3 (test code = 0349523125) <0.03 0.00-0.06 LYMPH x10^3 (test code = 731-0) 1.32 10*3/uL 1.09-3.23 MONO x10^3 (test code = 742-7) 0.38 10*3/uL 0.36-1.02 EOS x10^3 (test code = 711-2) 0.12 10*3/uL 0.06-0.53 BASO x10^3 (test code = 704-7) 0.03 10*3/uL 0.01-0.09 [facility] [id number] 23:16:30* Test Item Value Reference Range Interpretation Comments TROPONIN I (test code = 7308812884) 0.072 ng/mL See_Comment H [Automated message] The [...] of biotin. Lab Interpretation (test code = 27858-5) Abnormal [facility] [id number] 18:12:15* Test Item Value Reference Range Interpretation Comments TROPONIN I (test code = 0112013804) 0.069 ng/mL See_Comment H [Automated message] The [...] of biotin. Lab Interpretation (test code = 09160-0) Abnormal [facility] CenterN-TERMINAL [id number] 18:09:14* Test Item Value Reference Range Interpretation Comme [facility] NT-proBNP (test code = 7649163549) 989 pg/mL See_Comment H [Automated message] The system which generated this result transmitted reference range: <=125. The reference range was not used to interpret this result as normal/abnormal. VLAD (test code = VLAD) Biotin has been reported to cause a negative bias, interpret results relative to patient's use of biotin. Lab Interpretation (test code = 67654-8) Abnormal [facility] CenterACTIVATED PARTIAL THRMPLAS [id number] 18:07:14* Test Item Value Reference Range Interpretation Comme [facility] APTT Patient (test code = 3173-2) See_Comment [Automated message] The system which generated this result transmitted reference range: 23 - 38 Seconds. The reference range was not used to interpret this result as normal/abnormal. VLAD (test code = VLAD) [facility] mean normal value for aPTT is 30 seconds. Lab Interpretation (test code = 69770-0) Normal [facility] CenterPROTHROMBIN TIME / [id number] 18:05:13* Test Item Value Reference Range Interpretation Comme [facility] PROTIME PATIENT (test code = 5964-2) See_Comment [Automated [employer]] The system which generated this result transmitted reference range: 12.0 - 14.7 Seconds. The reference range was not used to interpret this result as normal/abnormal. INR (test code = 6301-6) Normal INR <1.1; Warfarin Therapeutic range 2.0 to 3.0 or 2.5 to 3.5, depending upon the indications. Lab Interpretation (test code = 01291-4) Normal [facility] METABOLIC PANEL (90688)2021-06-04 18:04:33* Test Item Value Reference Range Interpretation Comme nts NA (test code = 9887800802) 138 mmol/L 135-145 K (test code = 8923448772) 4.5 mmol/L 3.5-5.0 CL (test code = 6873042740) 104 mmol/L 98-108 CO2 TOTAL (test code = 4076663640) 26 mmol/L 23-31 AGAP (test code = 8195222016) 2-16 BUN (test code = 9833747150) 33 mg/dL 7-23 H GLUCOSE (test code = 7980032600) 100 mg/dL 70-110 CREATININE (test code = 2483525925) 2.75 mg/dL 0.60-1.25 H TOTAL BILI (test code = 7169902722) 0.7 mg/dL 0.1-1.1 CALCIUM (test code = 8778525072) 9.5 mg/dL 8.6-10.6 T PROTEIN (test code = 3259395079) 7.1 g/dL 6.3-8.2 ALBUMIN (test code = 3162613025) 4.2 g/dL 3.5-5.0 ALK PHOS (test code = 5985126106) 82 U/L 34-122 ALTv (test code = 1742-6) 23 U/L 5-50 AST(SGOT) (test code = 8803537989) 25 U/L 13-40 eGFR (test code = 4765716298) mL/min/1.73m2 VALD (test code = VLAD) Association of Glomerular [...] imaging tests). Lab Interpretation (test code = 71104-3) Abnormal [facility] WITH [id number] 17:43:32* Test Item Value Reference Range Interpretation Comme nts WBC (test code = 6690-2) See_Comment [[employer]] The system which generated this result transmitted reference range: 4.20 - 10.70 10*3/?L. The reference range was not used to interpret this result as normal/abnormal. RBC (test code = 789-8) See_Comment [[employer]] The system which generated this result transmitted [...] 32.7 g/dL 31.2-35.0 RDW-SD (test code = 79953-8) 39.8 fL 38.5-51.6 RDW-CV (test code = 788-0) 12.9 % 12.1-15.4 PLT (test code = 777-3) See_Comment [Automated messa ge] The system which generated this result transmitted reference range: 150 - 328 10*3/?L. The reference range was not used to interpret this result as normal/abnormal. MPV (test code = 85826-6) 10.5 fL 9.8-13.0 NRBC/100 WBC (test code = 6687222764) See_Comment [Automated me ssage] The system which generated this result transmitted reference range: 0.0 - 10.0 /100 WBCs. The reference range was not used to interpret this result as normal/abnormal. NRBC x10^3 (test code = 7884016938) <0.01 See_Comment [Automated me ssage] The system which generated this result transmitted reference range: 10*3/?L. The reference range was not used to interpret this result as normal/abnormal. GRAN MAT (NEUT) % (test code = 770-8) 56.2 % IMM GRAN % (test code = 9747307340) 0.20 % LYMPH % (test code = 736-9) 30.3 % MONO % (test code = 5905-5) 9.7 % EOS % (test code = 713-8) 3.0 % BASO % (test code = 706-2) 0.6 % GRAN MAT x10^3(ANC) (test code = 8097573951) 2.62 10*3/uL 1.99-6.95 IMM GRAN x10^3 (test code = 0201137730) <0.03 0.00-0.06 LYMPH x10^3 (test code = 731-0) 1.41 10*3/uL 1.09-3.23 MONO x10^3 (test code = 742-7) 0.45 10*3/uL 0.36-1.02 EOS x10^3 (test code = 711-2) 0.14 10*3/uL 0.06-0.53 BASO x10^3 (test code = 704-7) 0.03 10*3/uL 0.01-0.09 [facility] METABOLIC PANEL (NA, K, CL, CO2, GLUCOSE, BUN, CREATININE, CA)2020-06-03 13:06:15* Test Item Value Reference Range Interpretation Comme nts NA (test code = 5393363845) 135 mmol/L 135-145 K (test code = 8229641696) 4.2 mmol/L 3.5-5.0 CL (test code = 6986060717) 103 mmol/L 98-108 CO2 TOTAL (test code = 8201890225) 26 mmol/L 23-31 AGAP (test code = 8919714707) 2-16 BUN (test code = 3387290096) 35 mg/dL 7-23 H GLUCOSE (test code = 8613583211) 104 mg/dL 70-110 CREATININE (test code = 5947169540) 2.31 mg/dL 0.60-1.25 H CALCIUM (test code = 5108882463) 8.9 mg/dL 8.6-10.6 eGFR (test code = 0986867377) mL/min/1.73m2 VLAD (test code = VLAD) Association [...] imaging tests). Lab Interpretation (test code = 37484-8) Abnormal [facility] CenterMAGNESIUM2021-04-22 13:06:15* Test Item Value Reference Range Interpretation Comme nts MAGNESIUM (test code = 6324776516) 2.1 mg/dL 1.7-2.4 Lab Interpretation (test cod e = 86142-5) Normal [facility] CenterCB WITH [id number] 12:01:28* Test Item Value Reference Range Interpretation Comme nts WBC (test code = 6690-2) See_Comment [Automated [employer]] The system which generated this result transmitted reference range: 4.20 - 10.70 10*3/?L. The reference range was not used to interpret this result as normal/abnormal. RBC (test code = 789-8) See_Comment [Automated [employer]] The system which generated this result transmitted [...] 32.9 g/dL 31.2-35.0 RDW-SD (test code = 37045-4) 41.2 fL 38.5-51.6 RDW-CV (test code = 788-0) 13.2 % 12.1-15.4 PLT (test code = 777-3) See_Comment [Automated [employer]] The system which generated this result transmitted reference range: 150 - 328 10*3/?L. The reference range was not used to interpret this result as normal/abnormal. MPV (test code = 96488-7) 10.9 fL 9.8-13.0 NRBC/100 WBC (test code = 1719679659) See_Comment [Automated me ssage] The system which generated this result transmitted reference range: 0.0 - 10.0 /100 WBCs. The reference range was not used to interpret this result as normal/abnormal. NRBC x10^3 (test code = 9944075687) <0.01 See_Comment [Automated me ssage] The system which generated this result transmitted reference range: 10*3/?L. The reference range was not used to interpret this result as normal/abnormal. GRAN MAT (NEUT) % (test code = 770-8) 56.0 % IMM GRAN % (test code = 8804262812) 0.20 % LYMPH % (test code = 736-9) 25.1 % MONO % (test code = 5905-5) 14.9 % EOS % (test code = 713-8) 3.5 % BASO % (test code = 706-2) 0.3 % GRAN MAT x10^3(ANC) (test code = 6337422765) 3.66 10*3/uL 1.99-6.95 IMM GRAN x10^3 (test code = 0564478482) <0.03 0.00-0.06 LYMPH x10^3 (test code = 731-0) 1.64 10*3/uL 1.09-3.23 MONO x10^3 (test code = 742-7) 0.97 10*3/uL 0.36-1.02 EOS x10^3 (test code = 711-2) 0.23 10*3/uL 0.06-0.53 BASO x10^3 (test code = 704-7) <0.03 0.01-0.09 [facility] CenterLAB ONLY COVID [id number] 03:20:06COVID DMT InterpretationInterpretation/Recommendations: Molecular NAAT Tests for Active Infection with the SARS-CoV-2 Virus: The patient has currently tested negative for the SARS-CoV-2 virus that causes COVID-19 illness, subsequent to a previously positive test. At this time, the patient may be rec overing from the infection, which is likely if any present symptoms are decreasing. In zuke-pu-yzzhyikt illness, the patient may be considered no [...] COVID-19 testing the [facility], including molecular NAAT testing (more commonly known as PCR testing and Rapid ID Now testing) and antibody testing. It does not take into account any testing that a patient has had outside of the [facility]. [facility] LABORATORY SERVICESCOVID WmnwagzXAHW-PrP-5 Rapid ID NOW (no units) ? ? Date ? Value ? 06/01/2020 ? Not Detected ? ? ? 09/04/2019 ? Positive (A) ? [facility] LABORATORY SERVICESC[facility] CenterTroponin [id number] 13:48:42* Test Item Value Reference Range Interpretation Comme nts TROPONIN I (test code = 4760517047) 0.119 ng/mL See_Comment H Hemolyzed specimen [Automated message] The system which generated this result transmitted reference range: <=0.034. The reference range was not used to interpret this result as normal/abnormal. LVAD (test code = VLAD) Equal or Less [...] biotin. ? Lab Interpretation (test code = 09735-0) Abnormal [facility] CenterACTIVATED PARTIAL THRMPLAS [id number] 12:21:16* Test Item Value Reference Range Interpretation Comme nts APTT Patient (test code = 3173-2) See_Comment H [Automated messa ge] The system which generated this result transmitted reference range: 26 - 36 Seconds. The reference range was not used to interpret this result as normal/abnormal. Lab Interpretation (test code = 65007-8) Abnormal [facility] CenterGlycosylated Hemoglobin (A1C)2020-06-02 12:04:04* Test Item Value Reference Range Interpretation Comme nts HGB A1C (test code = 4548-4) 5.7 % 4.0-5.7 VLAD (test code = VLAD) Reference RangesNormal: <5.7%Prediabetes: 5.7 - 6.4%Diabetes: > 6.5% Lab Interpretation (test code = 62795-2) Normal [facility] CenterTroponin [id number] 07:18:35* Test Item Value Reference Range Interpretation Comme nts TROPONIN I (test code = 2164634561) 0.130 ng/mL See_Comment H [Automated message] The [...] biotin. ? Lab Interpretation (test code = 55428-4) Abnormal [facility] CenterBasic Metabolic Panel (NA, K, CL, CO2, GLUCOSE, BUN, CREATININE, CA)2020-06-02 07:06:14* Test Item Value Reference Range Interpretation Comme nts NA (test code = 7138796769) 136 mmol/L 135-145 K (test code = 3050420990) 3.9 mmol/L 3.5-5.0 CL (test code = 2203369743) 104 mmol/L 98-108 CO2 TOTAL (test code = 3116296237) 25 mmol/L 23-31 AGAP (test code = 7888897214) 2-16 BUN (test code = 3105660564) 38 mg/dL 7-23 H GLUCOSE (test code = 8138452395) 103 mg/dL 70-110 CREATININE (test code = 8647991092) 2.49 mg/dL 0.60-1.25 H CALCIUM (test code = 0980328424) 9.0 mg/dL 8.6-10.6 eGFR (test code = 5889002439) mL/min/1.73m2 VLAD (test code = VLAD) Association [...] imaging tests). Lab Interpretation (test code = 61527-8) Abnormal [facility] CenterMagnesium [id number] 07:06:14* Test Item Value Reference Range Interpretation Comme nts MAGNESIUM (test code = 8856114668) 1.8 mg/dL 1.7-2.4 Lab Interpretation (test cod e = 70982-7) Normal [facility] CenterACTIVATED PARTIAL THRMPLAS [id number] 06:54:52* Test Item Value Reference Range Interpretation Comme nts APTT Patient (test code = 3173-2) See_Comment [Automated [employer]] The system which generated this result transmitted reference range: 26 - 36 Seconds. The reference range was not used to interpret this result as normal/abnormal. Lab Interpretation (test code = 84995-3) Normal [facility] CenterThyroid Stimulating Hormone (TSH)2020-06-02 00:27:14* Test Item Value Reference Range Interpretation Comme nts TSH (test code = 9380753350) See_Comment [Automated [employer]] The system which generated this result transmitted reference range: 0.45 - 4.70 mIU/L. The reference range was not used to interpret this result as normal/abnormal. Lab Interpretation (test code = 75835-5) Normal [facility] CenterTroponin [id number] 00:08:44* Test Item Value Reference Range Interpretation Comme [facility] TROPONIN I (test code = 6043700891) 0.096 ng/mL See_Comment H [Automated message] The [...] biotin. ? Lab Interpretation (test code = 03205-0) Abnormal [facility] CenterPhosphorus [id number] 23:57:01* Test Item Value Reference Range Interpretation Comme nts PHOSPHORUS (test code = 7908206233) 2.8 mg/dL 2.5-5.0 Lab Interpretation (test cod e = 58380-6) Normal [facility] CenterLipid Panel (Total Cholesterol, Triglycerides, HDL)2020-06-01 23:07:05* Test Item Value Reference Range Interpretation Comme nts CHOL (test code = 6834914589) 171 mg/dL 120-200 HDL (test code = 2586814009) 53 mg/dL >40 HDLC RATIO (test code = 3077977070) See_Comment [Automated [employer]] The system which generated this result transmitted reference range: <=5.0. The reference range was not used to interpret this result as normal/abnormal. TRIG (test code = 6861999801) 54 mg/dL 30-170 LDL CHOL (test code = 10429-5) 107 mg/dL See_Comment [Automated [employer]] The system which generated this result transmitted reference range: <=160. The reference range was not used to interpret this result as normal/abnormal. VLDL (test code = 9089884989) 11 mg/dL 5-60 Lab Interpretation (test code = 11648-8) Normal [facility] CenterCritical [id number] 21:08:59Rasheeda Riojas MD ? ? 06/01/2020 ?4:09 [...] patient's response to treatment and examination of patientUnHouston [facility] HospitalURINE DRUG (IMMUNOASSAY) - 4 ER [id number] 20:31:46* Test Item Value Reference Range Interpretation Comme nts AMPHET (test code = 5109218232) Negative Negative Cocaine Metabolite (test code = 3007082518) Presumptive Positive Negative A OPIATES (test code = 3558894096) Negative Negative THC (test code = 3070303908) Negative Negative VLAD (test code = VLAD) Urine Drug Cutoff Ranges Amphetamine: ? 1,000 ng/mLCocaine: ? 150 ng/mLOpiates: ? 300 ng/mLCannabinoids: ?50 ng/mL The results are to be used only for medical (i.e., treatment) purposes. Unconfirmed screening results must not be used for non-medical purposes (e.g., employment testing, legal testing). Lab Interpretation (test code = 84649-8) Abnormal [facility] CenterTroponin [id number] 17:18:05* Test Item Value Reference Range Interpretation Comme nts TROPONIN I (test code = 5310689609) 0.088 ng/mL See_Comment H [Automated message] The [...] biotin. ? Lab Interpretation (test code = 98749-7) Abnormal [facility] CenterN-TERMINAL [id number]-[id number] 17:15:05* Test Item Value Reference Range Interpretation Comme nts NT-proBNP (test code = 7033008133) 900 pg/mL See_Comment H [Automated message] The system which generated this result transmitted reference range: <=125. The reference range was not used to interpret this result as normal/abnormal. VLAD (test code = VLAD) Biotin has been reported to cause a negative bias, interpret results relative to patient's use of biotin. Lab Interpretation (test code = 28792-1) Abnormal [facility] CenterCOVID-19 (ID NOW RAPID TESTING)2020-06-01 17:10:05* Test Item Value Reference Range Interpretation Comme nts SARS-CoV-2 Rapid ID NOW (test code = 68945-2) Not Detected Not Detected VLAD (test code = VLAD) ID NOW COVID-19 As say is an isothermal nucleic acid amplification test intended for the qualitative detection of nucleic acid from SARS-CoV-2 viral RNA in nasopharyngeal (LEGAL COMPLIANCE OFFICER) specimens. It is used under Emergency Use [...] clinically indicated. Lab Interpretation (test code = 55393-5) Normal [facility] (NA, K, CL, CO2, GLUCOSE, BUN, CREATININE, CA)2020-06-01 17:07:08* Test Item Value Reference Range Interpretation Comme nts NA (test code = 1712700215) 137 mmol/L 135-145 K (test code = 5302242953) 4.2 mmol/L 3.5-5.0 CL (test code = 2773269404) 104 mmol/L 98-108 CO2 TOTAL (test code = 9273467957) 24 mmol/L 23-31 AGAP (test code = 2938609501) 2-16 BUN (test code = 1646791506) 36 mg/dL 7-23 H GLUCOSE (test code = 9254186178) 99 mg/dL 70-110 CREATININE (test code = 7508827912) 2.38 mg/dL 0.60-1.25 H CALCIUM (test code = 0059735936) 9.1 mg/dL 8.6-10.6 eGFR (test code = 6795921985) mL/min/1.73m2 VLAD (test code = VLAD) Association [...] imaging tests). Lab Interpretation (test code = 63336-0) Abnormal [facility] CenterHepatic Function Panel (ALB, T.PRO, BILI T, BU/BC, ALT, AST, ALK PHOS)2020-06-01 17:07:03* Test Item Value Reference Range Interpretation Comme nts TOTAL BILI (test code = 9904667861) 0.5 mg/dL 0.1-1.1 BILI UNCON (test code = 2652100279) 0.4 mg/dL 0.1-1.1 BILI CONJ (test code = 2335071674) 0.0 mg/dL 0.0-0.3 T PROTEIN (test code = 5537451115) 6.9 g/dL 6.3-8.2 ALBUMIN (test code = 1159274394) 4.1 g/dL 3.5-5.0 ALK PHOS (test code = 8822951603) 96 U/L 34-122 ALTv (test code = 1742-6) 17 U/L 5-50 AST(SGOT) (test code = 7244283234) 26 U/L 13-40 Lab Interpretation (test cod e = 94874-7) Normal [facility] CenteraPTT2021-04-20 17:04:25* Test Item Value Reference Range Interpretation Comme [facility] APTT Patient (test code = 3173-2) See_Comment [Automated message] The system which generated this result transmitted reference range: 23 - 38 Seconds. The reference range was not used to interpret this result as normal/abnormal. VLAD (test code = VLAD) The [facility] population mean normal value for aPTT is 30 seconds. Lab Interpretation (test code = 33568-2) Normal [facility] CenterProthrombin Time (PT) / [id number] 17:02:24 * Test Item Value Reference Range Interpretation Comme [facility] PROTIME PATIENT (test code = 5964-2) See_Comment [Automated messa ge] The system which generated this result transmitted reference range: 12.0 - 14.7 Seconds. The reference range was not used to interpret this result as normal/abnormal. INR (test code = 6301-6) Normal INR <1.1; Warfarin Therapeutic range 2.0 to 3.0 or 2.5 to 3.5, depending upon the indications. Lab Interpretation (test code = 45866-7) Normal [facility] CenterCBC with Ianthatsxzzt8166-36-58 16:59:03* Test Item Value Reference Range Interpretation [...] 32.7 g/dL 31.2-35.0 RDW-SD (test code = 69936-0) 42.2 fL 38.5-51.6 RDW-CV (test code = 788-0) 13.3 % 12.1-15.4 PLT (test code = 777-3) See_Comment [Automated messa ge] The system which generated this result transmitted reference range: 150 - 328 10*3/?L. The reference range was not used to interpret this result as normal/abnormal. MPV (test code = 86425-0) 10.8 fL 9.8-13.0 NRBC/100 WBC (test code = 1392883020) See_Comment [Automated me ssage] The system which generated this result transmitted reference range: 0.0 - 10.0 /100 WBCs. The reference range was not used to interpret this result as normal/abnormal. NRBC x10^3 (test code = 5295279690) <0.01 See_Comment [Automated me ssage] The system which generated this result transmitted reference range: 10*3/?L. The reference range was not used to interpret this result as normal/abnormal. GRAN MAT (NEUT) % (test code = 770-8) 59.7 % IMM GRAN % (test code = 9672411576) 0.20 % LYMPH % (test code = 736-9) 26.4 % MONO % (test code = 5905-5) 9.3 % EOS % (test code = 713-8) 3.8 % BASO % (test code = 706-2) 0.6 % GRAN MAT x10^3(ANC) (test code = 5229381391) 2.96 10*3/uL 1.99-6.95 IMM GRAN x10^3 (test code = 3230159037) <0.03 0.00-0.06 LYMPH x10^3 (test code = 731-0) 1.31 10*3/uL 1.09-3.23 MONO x10^3 (test code = 742-7) 0.46 10*3/uL 0.36-1.02 EOS x10^3 (test code = 711-2) 0.19 10*3/uL 0.06-0.53 BASO x10^3 (test code = 704-7) 0.03 10*3/uL 0.01-0.09 [facility] 1 Yvbs9651-48-69 16:57:50HISTORY: Dyspnea. TECHNIQUE: Portable AP erect view [...] joint. CONCLUSIONS: No signs of acute cardiopulmonary disease.[facility], Radiant Results Inft User - 06/01/2020 11:58 [...] glenohumeral joint.CONCLUSIONS: No signs of acute cardiopulmonary disease.[facility] CenterIN[facility] PTH CALCIUM [id number] 16:15:00* Test Item Value Reference Range Interpretation Comme nts CALCIUM (test code = 1308785025) 8.7 mg/dL 8.6-10.6 PTH-INTACT (test code = 8484938040) 63.1 pg/mL 12 PTH-CA Interpretation (test code = 7710276545) PTH IS Appropria te for Calcium [facility] CenterCB with Oeeclnfwefvi4003-57-54 10:39:00* Test Item Value Reference Range Interpretation [...] 33.3 g/dL 31.2-35 RDW-SD (test code = 89766-1) 42.3 fL 38.5-51.6 RDW-CV (test code = 788-0) 13.7 % 12.1-15.4 PLT (test code = 777-3) See_Comment [Automated messa ge] The system which generated this result transmitted reference range: 150 - 328 10*3/?L. The reference range was not used to interpret this result as normal/abnormal. MPV (test code = 55020-0) 11.0 fL 9.8-13 NRBC/100 WBC (test code = 3572310005) See_Comment [Automated me ssage] The system which generated this result transmitted reference range: 0.0 - 10.0 /100 WBCs. The reference range was not used to interpret this result as normal/abnormal. NRBC x10^3 (test code = 9655210582) <0.01 See_Comment [Automated messa ge] The system which generated this result transmitted reference range: 10*3/?L. The reference range was not used to interpret this result as normal/abnormal. GRAN MAT (NEUT) % (test code = 770-8) 44.6 % IMM GRAN % (test code = 0940540605) 0.20 % LYMPH % (test code = 736-9) 43.1 % MONO % (test code = 5905-5) 9.0 % EOS % (test code = 713-8) 2.9 % BASO % (test code = 706-2) 0.2 % GRAN MAT x10^3(ANC) (test code = 6418385553) 1.87 10*3/uL 1.99-6.95 L IMM GRAN x10^3 (test code = 5722708839) <0.03 0-0.06 LYMPH x10^3 (test code = 731-0) 1.81 10*3/uL 1.09-3.23 MONO x10^3 (test code = 742-7) 0.38 10*3/uL 0.36-1.02 EOS x10^3 (test code = 711-2) 0.12 10*3/uL 0.06-0.53 BASO x10^3 (test code = 704-7) <0.03 0.01-0.09 Lab Interpretation (test code = 31370-6) Abnormal [facility] Metabolic Panel (NA, K, CL, CO2, GLUCOSE, BUN, CREATININE, CA)2019-09-06 10:39:00* Test Item Value Reference Range Interpretation Comme nts NA (test code = 8141232511) 136 mmol/L 135-145 K (test code = 7541240488) 3.8 mmol/L 3.5-5 CL (test code = 5626486753) 106 mmol/L 98-108 CO2 TOTAL (test code = 6867867542) 25 mmol/L 23-31 AGAP (test code = 9428223574) 2-16 BUN (test code = 9509821616) 27 mg/dL 7-23 H GLUCOSE (test code = 8352976163) 89 mg/dL 70-110 CREATININE (test code = 7744766007) 2.06 mg/dL 0.6-1.25 H CALCIUM (test code = 0483393746) 8.7 mg/dL 8.6-10.6 eGFR Calculation (Non-) (test code = 6532744460) mL/min/1.73m2 eGFR Calculation () (test code = 4764419001) mL/min/1.73m2 VLAD (test code = VLAD) Association [...] imaging tests). Lab Interpretation (test code = 75131-5) [facility] FCYQSCPN2469-78-52 14:39:09No acute intracranial hemorrhage or mass effect. Possible rightthalamocapsular lacunar infarct, ageindeterminate. MRI withdiffusion-weighted imaging is more sensitive for the detection of acuteischemia. Preliminary Report Dictated by Resident: Tarik Spangler MD., have reviewed this study and agree [...] unchangedfrom multiple comparison examinations dating back to 2016 reflectingdilated perivascular space versus lacunar infarct. Mild bilateral cerebralwhite matter hypoattenuation is also essentially changed in degree [id number] and favored to represent sequelae of microvascular [...] unchangedfrom multiple comparison examinations dating back to 2016 reflectingdilated perivascular space versus lacunar infarct. Mild bilateral cerebralwhite matter hypoattenuation is also essentially changed in degree [id number] and favored to represent sequelae of microvascular [...] this study and agree with theabove report. [facility] with Hdkipvmhqocm6155-75-68 14:22:00* Test Item Value Reference Range Interpretation Comme nts WBC (test code = 6690-2) See_Comment [Automated [employer]] The system which generated this result transmitted reference range: 4.20 - 10.70 10*3/?L. The reference range was not used to interpret this result as normal/abnormal. RBC (test code = 789-8) See_Comment [Automated messa [employer]] The system which generated this result transmitted [...] 32.4 g/dL 31.2-35 RDW-SD (test code = 73033-9) 42.4 fL 38.5-51.6 RDW-CV (test code = 788-0) 13.5 % 12.1-15.4 PLT (test code = 777-3) See_Comment [Automated [employer]] The system which generated this result transmitted reference range: 150 - 328 10*3/?L. The reference range was not used to interpret this result as normal/abnormal. MPV (test code = 35132-4) 11.1 fL 9.8-13 NRBC/100 WBC (test code = 8345434489) See_Comment [Automated me ssage] The system which generated this result transmitted reference range: 0.0 - 10.0 /100 WBCs. The reference range was not used to interpret this result as normal/abnormal. NRBC x10^3 (test code = 0229033566) <0.01 See_Comment [Automated messa ge] The system which generated this result transmitted reference range: 10*3/?L. The reference range was not used to interpret this result as normal/abnormal. GRAN MAT (NEUT) % (test code = 770-8) 38.8 % IMM GRAN % (test code = 4989095929) 0.40 % LYMPH % (test code = 736-9) 47.7 % MONO % (test code = 5905-5) 9.4 % EOS % (test code = 713-8) 3.3 % BASO % (test code = 706-2) 0.4 % GRAN MAT x10^3(ANC) (test code = 9887854747) 1.78 10*3/uL 1.99-6.95 L IMM GRAN x10^3 (test code = 0780135550) <0.03 0-0.06 LYMPH x10^3 (test code = 731-0) 2.19 10*3/uL 1.09-3.23 MONO x10^3 (test code = 742-7) 0.43 10*3/uL 0.36-1.02 EOS x10^3 (test code = 711-2) 0.15 10*3/uL 0.06-0.53 BASO x10^3 (test code = 704-7) <0.03 0.01-0.09 Lab Interpretation (test code = 25362-2) Abnormal [facility] CenterURINALYSIS2020-07-24 14:11:00* Test Item Value Reference Range Interpretation Comme nts APPEARANCE (test code = 1905164450) Clear Clear COLOR (test code = 0533476116) Yellow Yellow PH (test code = 8156511116) 4.8-8.0 SP GRAVITY (test code = 3276394571) 1.003-1.030 GLU U QUAL (test code = 1629262266) Normal Normal BLOOD (test code = 2854133322) Negative Negative KETONES (test code = 2286379641) Negative Negative PROTEIN (test code = 2887-8) Negative Negative UROBILIN (test code = 6541951993) Normal Normal BILIRUBIN (test code = 1550545001) Negative Negative NITRITE (test code = 7560575042) Negative Negative LEUK BING (test code = 9842714076) Negative Negative RBC/HPF (test code = 5063539162) See_Comment [Automated ActivIdentitya ge] The system which generated this result transmitted reference range: 0 - 3 HPF. The reference range was not used to interpret this result as normal/abnormal. WBC/HPF (test code = 5440830611) See_Comment [Automated Activ[employer] ge] The system which generated this result transmitted reference range: 0 - 5 HPF. The reference range was not used to interpret this result as normal/abnormal. BACTERIA (test code = 2432640675) Negative Negative MUCOUS (test code = 1166015980) Slight Negative LPF A Lab Interpretation (test code = 34441-8) Abnormal [facility] CenterCREATINE ZIKTBX0895-35-67 14:04:00* Test Item Value Reference Range Interpretation Comme nts CK (test code = 2270833017) 185 U/L 33-194 Lab Interpretation (test cod e = 00904-8) Normal [facility] CenterURIC [id number] 14:04:00* Test Item Value Reference Range Interpretation Comme nts URIC ACID (test code = 0241305489) 8.9 mg/dL 3.6-8 H Lab Interpretation (test cod e = 52079-8) Abnormal [facility] CenterCREATININE, URINE ZIUNTQ2046-40-18 14:00:00* Test Item Value Reference Range Interpretation Comme nts CREAT U (test code = 1499324178) 158.4 mg/dL [facility] CenterTOTAL PROTEIN, URINE FKVYDQ4343-84-86 14:00:00 * Test Item Value Reference Range Interpretation Comme nts T. PROT U (test code = 2888-6) 22 mg/dL [facility] CenterTroponin S6723-43-40 12:49:00* Test Item Value Reference Range Interpretation Comme nts TROPONIN I (test code = 7181516447) 0.078 ng/mL See_Comment H [Automated message] The [...] biotin. ? Lab Interpretation (test code = 50004-4) Abnormal [facility] (NA, K, CL, CO2, GLUCOSE, BUN, CREATININE, CA)2019-09-05 12:38:00* Test Item Value Reference Range Interpretation Comme [facility] NA (test code = 2383543330) 135 mmol/L 135-145 K (test code = 1237601677) 3.7 mmol/L 3.5-5 CL (test code = 5058330125) 106 mmol/L 98-108 CO2 TOTAL (test code = 5061298528) 25 mmol/L 23-31 AGAP (test code = 1098620731) 2-16 BUN (test code = 7494997450) 29 mg/dL 7-23 H GLUCOSE (test code = 0577072356) 89 mg/dL 70-110 CREATININE (test code = 5887452688) 2.10 mg/dL 0.6-1.25 H CALCIUM (test code = 4440034524) 8.7 mg/dL 8.6-10.6 eGFR Calculation (Non-) (test code = 5591007311) mL/min/1.73m2 eGFR Calculation () (test code = 7344736301) mL/min/1.73m2 VLAD (test code = VLAD) Association [...] imaging tests). Lab Interpretation (test code = 11284-9) Abnormal [facility] CenteraPTT2020-07-24 12:17:00* Test Item Value Reference Range Interpretation Comme nts APTT Patient (test code = 3173-2) See_Comment H [Automated message] The system which generated this result transmitted reference range: 23 - 38 Seconds. The reference range was not used to interpret this result as normal/abnormal. VLAD (test code = VLAD) [facility] mean normal value for aPTT is 30 seconds. Lab Interpretation (test code = 31892-5) Abnormal [facility] CenteraPTT2020-07-24 05:50:00* Test Item Value Reference Range Interpretation Comme [facility] APTT Patient (test code = 3173-2) See_Comment [Automated message] The system which generated this result transmitted reference range: 23 - 38 Seconds. The reference range was not used to interpret this result as normal/abnormal. VLAD (test code = VLAD) [facility] population mean normal value for aPTT is 30 seconds. Lab Interpretation (test code = 99065-5) Normal [facility] CenterTroponin [id number] 05:10:00* Test Item Value Reference Range Interpretation Comme [facility] TROPONIN I (test code = 3114799993) 0.073 ng/mL See_Comment H [Automated message] The [...] biotin. ? Lab Interpretation (test code = 03657-0) Abnormal [facility] CenterThyroid Stimulating Hormone (TSH)2019-09-05 00:14:00* Test Item Value Reference Range Interpretation Comme [facility] TSH (test code = 4233712404) See_Comment Biotin has been reported to cause a negative bias, interpret results relative to patient's use of biotin. [Automated message] The system which generated this result transmitted reference range: 0.45 - 4.70 mIU/L. The reference range was not used to interpret this result as normal/abnormal. Lab Interpretation (test code = 53528-1) Normal [facility] CenterCOVID-19 (ID NOW RAPID TESTING)2019-09-04 23:15:00* Test Item Value Reference Range Interpretation Comme nts SARS-CoV-2 Rapid ID NOW (test code = 39564-8) Positive Not Detected A VLAD (test code = VLAD) ID NOW COVID-19 As say is an isothermal nucleic acid amplification test intended for the qualitative detection of nucleic acid from SARS-CoV-2 viral RNA in nasopharyngeal (LEGAL COMPLIANCE OFFICER) specimens. It is used under Emergency Use [...] clinically indicated. Lab Interpretation (test code = 57729-3) Abnormal [facility] CenterCT ANGIOGRAM [id number] 21:39:59HISTORY: Aortic disease TECHNIQUE: Initially noncontrast enhanced [...] output for next 24 to 48 hours. [facility], Radiant Results Inft User - 09/04/2019 4:41 [...] urine output for next 24 to 48 hours.[facility] CenterCT HEAD WO [id number] 21:21:10No acute intracranial hemorrhage or mass effect. Possible intervaldevelopment of left thalamocapsular lacunar infarct, age indeterminate. MRIwith diffusion-weighted imaging is more sensitive for the d etection ofacute ischemia. Preliminary Report Dictated by Resident: Tarik Eason MD., have reviewed this study and agree [...] reviewed this study and agree with theabove report.[facility] CenterURINALYSIS2020-07-23 20:40:00 * Test Item Value Reference Range Interpretation Comme nts APPEARANCE (test code = 0338589344) Clear Clear COLOR (test code = 2032820183) Yellow Yellow PH (test code = 2713741058) 4.8-8.0 SP GRAVITY (test code = 7796079253) 1.003-1.030 GLU U QUAL (test code = 9773954209) 50 mg/dL Normal A BLOOD (test code = 7087937732) 2+ Negative A KETONES (test code = 7820507229) Negative Negative PROTEIN (test code = 2887-8) 100 mg/dL Negative A UROBILIN (test code = 0511549347) 2.0 mg/dL Normal A BILIRUBIN (test code = 5038234399) Negative Negative NITRITE (test code = 4932244864) Negative Negative LEUK BING (test code = 4443360757) Negative Negative RBC/HPF (test code = 3616228263) See_Comment H [Automated messa ge] The system which generated this result transmitted reference range: 0 - 3 HPF. The reference range was not used to interpret this result as normal/abnormal. WBC/HPF (test code = 4937734329) See_Comment [Automated [employer]] The system which generated this result transmitted reference range: 0 - 5 HPF. The reference range was not used to interpret this result as normal/abnormal. BACTERIA (test code = 9220356740) Negative Negative MUCOUS (test code = 4389113209) Slight Negative LPF A SQ EPITH (test code = 9074518517) HPF HYAL CAST (test code = 8759733695) See_Comment [Automated [employer]] The system which generated this result transmitted reference range: <=2 LPF. The reference range was not used to interpret this result as normal/abnormal. Lab Interpretation (test code = 87426-5) Abnormal [facility] CenterGLYCOSYLATED HEMOGLOBIN (A1C)2019-09-04 20:32:00* Test Item Value Reference Range Interpretation Comme nts HGB A1C (test code = 4548-4) 5.9 % 4-6 VLAD (test code = VLAD) %A1C (NGSP) Interpretation (ADA)4.8-5.6 ? ? Normal or (Non-Diabetic Range)5.7-6.4 ? ? Increased Risk (Pre-Diabetic)>6.5 ?Diabetes Indicated Lab Interpretation (test code = 26211-4) Normal [facility] / [facility] - DRUG SCREEN MODNKO2615-94-17 20:27:00* Test Item Value Reference Range Interpretation Comme nts BENZO U (test code = 4746802842) Negative Negative NICOLASA U (test code = 1332584020) Negative Negative AMPHET (test code = 3540565392) Negative Negative THC (test code = 9616082472) Negative Negative METHADONE (test code = 7936852523) Negative Negative Meth U (test code = 3435356426) Negative Negative OPIATES (test code = 8385875683) Negative Negative Cocaine Metabolite (test code = 1928059260) Presumptive Positive Negative A PROPOXY (test code = 9939121988) Negative Negative Tric U (test code = 0104385455) Negative Negative PCP (test code = 4991436440) Negative Negative OXYCOD (test code = 0062915155) Negative Negative VLAD (test code = VLAD) [...] legal testing). Lab Interpretation (test code = 98062-0) Abnormal [facility] CenterHERLINDA [id number] 20:10:00* Test Item Value Reference Range Interpretation Comme nts TROPONIN I (test code = 2156928516) 0.076 ng/mL See_Comment H [Automated message] The [...] biotin. ? Lab Interpretation (test code = 73394-7) Abnormal [facility] CenterLIPID PANEL (67915)(TOTAL CHOLESTEROL, TRIGLYCERIDES, HDL)2019-09-04 20:00:00* Test Item Value Reference Range Interpretation Comme nts CHOL (test code = 1473723794) 167 mg/dL 120-200 HDL (test code = 8927424863) 48 mg/dL >40 HDLC RATIO (test code = 1693262871) See_Comment [Automated [employer]] The system which generated this result transmitted reference range: <=5.0. The reference range was not used to interpret this result as normal/abnormal. TRIG (test code = 5751470938) 140 mg/dL 30-170 LDL CHOL (test code = 12539-3) 91 mg/dL See_Comment [Automated datapine] The system which generated this result transmitted reference range: <=160. The reference range was not used to interpret this result as normal/abnormal. VLDL (test code = 2290543996) 28 mg/dL 5-60 Lab Interpretation (test code = 96226-4) Normal [facility] CenterCOMP. METABOLIC PANEL (02517)2019-09-04 19:59:00* Test Item Value Reference Range Interpretation Comme nts NA (test code = 1724857125) 140 mmol/L 135-145 K (test code = 9413625380) 3.6 mmol/L 3.5-5 CL (test code = 6962025474) 105 mmol/L 98-108 CO2 TOTAL (test code = 1179582535) 26 mmol/L 23-31 AGAP (test code = 6626978827) 2-16 BUN (test code = 4822464494) 31 mg/dL 7-23 H GLUCOSE (test code = 7689032223) 137 mg/dL 70-110 H CREATININE (test code = 4137417768) 2.47 mg/dL 0.6-1.25 H TOTAL BILI (test code = 2862926935) 0.6 mg/dL 0.1-1.1 CALCIUM (test code = 3083668503) 9.4 mg/dL 8.6-10.6 T PROTEIN (test code = 6665149762) 7.7 g/dL 6.3-8.2 ALBUMIN (test code = 0397958028) 4.1 g/dL 3.5-5 ALK PHOS (test code = 1690457659) 77 U/L 34-122 ALTv (test code = 1742-6) 17 U/L 5-50 AST(SGOT) (test code = 4957406352) 28 U/L 13-40 eGFR Calculation (Non-) (test code = 2545174312) mL/min/1.73m2 eGFR Calculation () (test code = 2884944807) mL/min/1.73m2 VLAD (test code = VLAD) Association [...] imaging tests). Lab Interpretation (test code = 55169-3) Abnormal [facility] WITH [id number] 19:44:00* Test Item Value Reference Range Interpretation Comme nts WBC (test code = 6690-2) See_Comment [Automated [employer] ge] The system which generated this result transmitted reference range: 4.20 - 10.70 10*3/?L. The reference range was not used to interpret this result as normal/abnormal. RBC (test code = 789-8) See_Comment [Automated [employer]] The system which generated this result transmitted [...] 32.7 g/dL 31.2-35 RDW-SD (test code = 22737-2) 42.6 fL 38.5-51.6 RDW-CV (test code = 788-0) 13.5 % 12.1-15.4 PLT (test code = 777-3) See_Comment [Automated [employer]] The system which generated this result transmitted reference range: 150 - 328 10*3/?L. The reference range was not used to interpret this result as normal/abnormal. MPV (test code = 40660-7) 10.8 fL 9.8-13 NRBC/100 WBC (test code = 5701931281) See_Comment [Automated [employer] ssage] The system which generated this result transmitted reference range: 0.0 - 10.0 /100 WBCs. The reference range was not used to interpret this result as normal/abnormal. NRBC x10^3 (test code = 3969749990) <0.01 See_Comment [Automated [employer] ssage] The system which generated this result transmitted reference range: 10*3/?L. The reference range was not used to interpret this result as normal/abnormal. GRAN MAT (NEUT) % (test code = 770-8) 52.7 % IMM GRAN % (test code = 7442159624) 0.40 % LYMPH % (test code = 736-9) 32.6 % MONO % (test code = 5905-5) 10.4 % EOS % (test code = 713-8) 3.3 % BASO % (test code = 706-2) 0.6 % GRAN MAT x10^3(ANC) (test code = 5203951463) 2.70 10*3/uL 1.99-6.95 IMM GRAN x10^3 (test code = 2194855498) <0.03 0-0.06 LYMPH x10^3 (test code = 731-0) 1.67 10*3/uL 1.09-3.23 MONO x10^3 (test code = 742-7) 0.53 10*3/uL 0.36-1.02 EOS x10^3 (test code = 711-2) 0.17 10*3/uL 0.06-0.53 BASO x10^3 (test code = 704-7) 0.03 10*3/uL 0.01-0.09 [facility] Consult Notes Date/Time Note Provider Source 2022-10-24 16:56:44 Ey4yg4hQHi4ZM2gUkESU 88OlsZN6zJM3eEG4ndx3eD /RVR0gI+JBVt7UwDy0YfLi7726-81-07J50:56:44A ssociated Order(s): CONSULT [facility] Consult NotePatient: Zander MelvinDate of : 1960MRN: [id number] of service: 10/24/2022 Primary Care Physician: PATIENT [...] stage 2, GFR 60-89 ml/min HTN (hypertension) MA (myocardial infarction) Other hyperlipidemia S/P arterial stent Past Surgical History: Procedure Laterality Date DEBRIDEMENT LOWER EXTREMITY (SHX) Left 07/15/2022 Surgeon: Chela Treviño MD; Location: [facility] Family History Problem Relation Age of Onset [...] 4 mg, Slow IV Push, Q6HPRN, Moe [place], LOUISEW OF SYSTEMS:Comprehensive 10-system review was conducted and [...] (mg/dL) Date Value 07/15/2022 85 Recent Labs 2 TROPNI 0.057* Recent Labs TRIG 64 LDL CHOL (mg/dL) Date Value 07/15/2022 85 NT-proBNP (pg/mL) Date Value 06/04/2021 989 (H) ASSESSMENT/PLANPrincipal Problem: Hypertensive emergencyActive Problems: Elevated troponin Essential hypertension Stage 3 chronic kidney disease Hypertensive urgency Acute renal failure superimposed on stage 3 chronic kidney disease Coronary artery disease involving [place] coronary artery of [place] heart without angina pectoris PAD (peripheral artery [...] disease noted. Troponin elevation: likely type 2 MA due to hypertensive urgency/CKD. Continue ASA 81 daily.Denies history of any chest pain or any worsening shortness of breath. No indications for ACS.Recommended serial troponins x2.Continue telemetry monitoring.Recent Labs TROPNI 0.057* Acute on CKD 3: The setting of underlying uncontrolled hypertension.Recommended nephrology evaluation. Strongly recommended to establish care with nephrology team due to worsening creatinine. H/o MA/questionable CAD: Consider ASA and statins.Continue with carvedilol [...] feel free to call our office at [phone]. I would be happy to be of further assistance for Zander Melvin wellbeing. Voice recognition software has been used to create portions of this document. An attempt to proofread has been made to minimize errors. Please do not hesitate to call with any questions. Binu Lopez MD Baseball [employer] Manager, Division of CardiologyUnHouston Methodist [facility] [address]-7Uzizqpp bsbpYS8229-82-60P38:12:44Consult noteTXT1.2.840.956330.1.13.104.2.7.2.56954 9|[id number] for patient pemn93462-9Pqsriwr noteLNUT[address] Qd[id number] NRKNOBDOKKPLAPSX6712-25-07B36:12:441.2.840 .430171.1.72.3.15|1.2.840.917075.1.13.104. 2.7.2.727879_[id number] [facility] History and Physical Notes Date/Time Note Provider Source 2022-10-24 20:27:09 HChLWtfaBVyL6QlXXg9s4j+8biwShy1JS9zm /iKfzBsbQldGtOYIqOGXX9aFfS3256-72- 12T20:27:09 [facility] Hospitalist Admission H&P Date of Service: 3CHIEF COMPLAINT: Uncontrolled hypertensionHISTORY OF PRESENT ILLNESSZander Melvin is a 61 year old male [...] should follow-up with an ENT or a hospital supervisor. This needs to be removed and pathology needs to be completed. Patient lives in [place], [place]. ENT available in the local area he should follow-up as soon as possible.PAST MEDICAL HISTORY Past Medical History: Diagnosis Date CAD (coronary artery disease) CKD (chronic kidney disease) stage 2, GFR 60-89 ml/min HTN (hypertension) MA (myocardial infarction) Other hyperlipidemia S/P arterial stent PAST SURGICAL HISTORYPast Surgical History: Procedure Laterality Date DEBRIDEMENT LOWER EXTREMITY (SHX) Left 07/15/2022 Surgeon: Chela Treviño MD; Location: [facility] ALLERGIESNo Known AllergiesMEDICATIONSCurrent home medication list reviewed:Current [...] in the Last Year: No REVIEW OF UBOWEBQ35 systems negative except per HPIPHYSICAL EXAMINATIONBP (!) [...] (Z71.6)Tobacco user?: NO Patient will require observationTexas LARGE ANIMAL VETERINARIAN [place] [address]-6Yxxespv and physical orghUU0053-10-25S22:49:40History and physical noteTXT1.2.840.798201.1.13.104.2.7.2 .024089|[id number] for patient rghl44567-2Cbywxhd and physical noteLNIM-INTERNAL MEDICINE STAFFIM-INTERNAL MEDICINE STAFF[address] Xr[id number] XGSEGALXGEHWXHLDKWKYHV2333-19-14K79: 49:401.2.840.688739.1.72.3.15|1.2.84 0.935356.1.13.104.2.7.2.727879_18977 27336 IM-INTERNAL MEDICINE STAFF [facility] Notes Date/Time Note Provider Source 2023-03-10 19:00:00 eKocL7wTMQw01pyePX4N ygxeE883eW2bgf lzs6wJFhGOscDJSQX3MA9nB70pfMvf9538 -01-27T19:00:00 Pt dc'd home ambulatory. Pt v/u of dc instructions. 16637-2Wkmthlcil department SqejQB4942-80-76A72:29:10Emergen department NoteTXT1.2.840.847700.1.13.104.2.7 .2.961116|[id number] for patient hnzo67009-8WvvsZLMVIFEXHZARhfyvrnf d C-CDA narrative cigg225623473Ycznhb D Roman RNUT[address] StreetNn[id number] 66QUVHPIZKARHSWRLBWOLYFX0123-76-13 T21:29:101.2.840.811829.1.72.3.15| 1.2.840.688236.1.13.104.2.7.2.7278 [id number] Christelle Junior RN [facility] 2023-03-10 15:46:14 BKOWEecxB4KPENEe4qAx KcmSTGnMCwpG7T tnQxwSSiJiTVvdzMa6mn9NW9Hxjbir8783 -01-27T15:46:14 Sister states: " He was getting dialysis at [facility]. He had dialysis on . He doesn't have insurance. He has to go through the ER. We are applying for the medicare to be complete" 85462-4Lmawbuimp department Triage wvlrIS9038-99-33M74:50:13Emergency department Triage noteTXT1.2.840.115692.1.13.104.2.7 .2.667202|[id number] for patient itey99184-6Ftkhfilrr department NoteLNNARRATIVEFormatted C-CDA narrative [id number] M Cruz RN[address] Cb[id number] 15FSCKMMEDVTQWJWSJZXBNBZ6003-63-89 T15:50:131.2.840.812303.1.72.3.15| 1.2.840.017544.1.13.104.2.7.2.7278 [id number] Tiana James RN [facility] 2023-03-10 15:41:00 CwuTTY4x3id53nLbzWWe PlSV7FICoQHPPc /v0+fvECjoNJfw+pENMz3sLRlK066W0755 -01-27T15:41:00 [facility] Vincent of : 1960 62 year oldMRN: [id number] Room:[facility] ED [facility] Physician: PATIENT DOES NOT HAVE A PCPPre- HospitalPatient Escorted by: Family [5]Mode of Arrival: Personal means [1]EMS Treatment Prior to ED Arrival:ED EventsDate/Time Event User Pdhzhsbz13/27/24 1629 Medical Screening Begins RASHEEDA RIOJAS MD --03/10/23 1629 First Provider Evaluation RASHEEDA RIOJAS MD --Chief ComplaintChief ComplaintPatient presents withOtherDialysisED Triage Tiana Vicente RN 03/10/2023 15:50Sister states: " He was getting dialysis at [facility]. He had dialysis on . He [...] kidney disease) stage 2, GFR 60-89 ml/minHTN (hypertension)MA (myocardial infarction)Other hyperlipidemiaS/P arterial stentTetanus received in last 5 years: YesChildhood immunizations: Bd-vy-vkxzOivd Surgical HistoryPast Surgical History:Procedure Laterality DateDEBRIDEMENT LOWER EXTREMITY (SHX) Left 07/15/2022Surgeon: Chela Treviño MD; Location[facility] AllergiesSocial HistoryTobacco UseSome Days; 0.25 packs/day; Types: [...] 0.03 0.01 - 0.09 10*3/uLCOMP. METABOLIC PANEL (06536) - AbnormalNA 140 135 - 145 mmol/LK [...] U/LAST(SGOT) 27 13 - 40 U/LeGFR 9.4 mL/min/1.63i1GSJFPPXKLH - AbnormalPHOSPHORUS 5.1 (*) 2.5 - 5.0 [...] CHEST 1 VWCBC WITH DIFFCOMP. METABOLIC PANEL (73371)MagnesiumPhosphorusNo orders of the defined types were placed in this encounter.ProceduresProceduresNote s & MDMPatient was evaluated for an emergency medical condition related to Other (Dialysis )Diagnosis/Impression as of 01/27/24 2036ESRD (end stage renal disease)Medical Decision MakingProblems Addressed:ESRD [...] He was instructed to follow-up with his imaging administrator and continue his current regimen of dialysis. [...] on fileSTOP taking these medicationsNo medications on fileRasheeda Riojas Jr. MDClinical Bicycle Repairman ProfessorALEXANDRU Emergency DepartmentDragon Dictation Software is used frequently and may produce errors. Promptly contact for obvious discrepancies.Rasheeda Riojas MD03/10/232037 75863-3Sfjqnvxeo Emergency department VgnhNA3973-95-83V06:37:59[facility] NoteTXT1.2.840.796607.1.13.104.2.7 .2.757736|[id number] for patient obem07451-9Syqltbwwv department NoteLNNARRATIVEFormatted C-CDA narrative text[address] Yh[id number] 45OVUDTXPLMHRAEHJGBGFSJK8931-42-38 T20:37:591.2.840.827609.1.72.3.15| 1.2.840.860095.1.13.104.2.7.2.7278 [id number] [facility] 2022-10-30 14:35:31 gM3u4UyiRLT52gR16IaE lQW+9OZcBXp7Lm fVHBmNuqOvRXmfX3XK8mDxUARdcEhY5781 -09-18T14:35:31 ----- Message from Shauna Almeida sent at 10/30/2022 9:15 AM CDT -----Regarding: RE: Follow up apptCalled to schedule patient left a voicemail to call us back to schedule.----- Message -----From: Yohannes Lopez MDSent: 10/27/2022 10:43 PM CDTTo: [facility] PssSubject: Follow up appt Needs follow up with Dr Taylor in 3-4 weeks. 74949-2Ijfshcrrn encounter HljiBO6639-64-49I24:35:31Telephone encounter NoteTXT1.2.840.429055.1.13.104.2.7 .2.835531|[id number] for patient qeab46066-7MjpnKIRNWIMCOA[id number] 69HJOXQCLBNJEBZWFVMTZIJM2534-71-25 T14:35:311.2.840.231911.1.72.3.15| 1.2.840.983930.1.13.104.2.7.2.7278 [id number] [facility] 2022-10-27 18:34:22 NKpoxFi8EX5WMQmt/jNj kNyTM0l97kz1T4 Qv5ODCXO0xD3XAjB8lctPPGWwaXEkD0263 -09-15T18:34:22 Problem: Venous Thromboembolism, (actual or risk of)Goal: Absence of venous thromboembolism (Risk)Outcome: Adequate for discharge Problem: PainGoal: Control of pain at or below patient's documented comfort goalOutcome: Adequate for dischargeGoal: Reduction in pain sensationOutcome: Adequate for discharge Problem: Falls, Risk ofGoal: Absence of fallsOutcome: Adequate for discharge Problem: Discharge PlanningGoal: Adequate for dischargeOutcome: Adequate for dischargeGoal: Effective communicationOutcome: Adequate for discharge 09577-1Ysqf of care rhkmXM6340-72-99N41:34:25Plan of care noteTXT1.2.840.911342.1.13.104.2.7 .2.382757|[id number] for patient juwl30487-3SroyWY990274703Okbikio C Johnson RN[id number] 69PIHIRFKZFGKDGGWSRALKXK2965-81-20 T18:34:251.2.840.237735.1.72.3.15| 1.2.840.111187.1.13.104.2.7.2.7278 [id number] Delores Parsons RN [facility] 2022-10-27 14:35:18 rhKy+DIMMju7vCR4v2Rq ZzBZrX8A663ZY5 c5RHlvnrQ3tq8ykCUwsotkLVLD4joF0361 -09-15T14:35:18 Problem: Venous Thromboembolism, (actual or risk of)Goal: Absence of venous thromboembolism (Risk)Outcome: Progressing as expected Problem: PainGoal: Control of pain at or below patient's documented comfort goalOutcome: Progressing as expectedGoal: Reduction in pain sensationOutcome: Progressing as expected Problem: Falls, Risk ofGoal: Absence of fallsOutcome: Progressing as expected Problem: Discharge PlanningGoal: Adequate for dischargeOutcome: Progressing as expectedGoal: Effective communicationOutcome: Progressing as expected 71381-2Ntqi of care bbtmYZ9395-65-13H63:36:00Plan of care noteTXT1.2.840.137080.1.13.104.2.7 .2.111449|[id number] for patient ywst70108-0JmpsRG970416301Tgdaech Roye RN[id number] 13HHXHVNHEVLCPQOYTLXZIMJ3909-46-06 T14:36:001.2.840.912756.1.72.3.15| 1.2.840.696383.1.13.104.2.7.2.7278 [id number] Fiordaliza Okeefe RN [facility] 2022-10-27 06:44:54 3Fuqj/k6CDiEW5U+Xm3O 76eXVHV+JELH9A urAPFEkt6mg/sqW3ISuaHV1iwU9Y796009 -09-15T06:44:54 Problem: Venous Thromboembolism, (actual or risk of)Goal: Absence of venous thromboembolism (Risk)Outcome: Progressing as expected Problem: PainGoal: Control of pain at or below patient's documented comfort goalOutcome: Progressing as expectedGoal: Reduction in pain sensationOutcome: Progressing as expected Problem: Falls, Risk ofGoal: Absence of fallsOutcome: Progressing as expected Problem: Discharge PlanningGoal: Adequate for dischargeOutcome: Progressing as expectedGoal: Effective communicationOutcome: Progressing as expected 43864-5Asgj of care djejRO8434-74-65Y36:44:59Plan of care noteTXT1.2.840.428368.1.13.104.2.7 .2.298377|[id number] for patient yrkh38858-6ByyePP837260171Qsvbbrp A Manwarren RN[id number] 19SMSBGMQNDBFFCIDNZXXHBJ7289-32-50 T06:44:591.2.840.946691.1.72.3.15| 1.2.840.148395.1.13.104.2.7.2.7278 [id number] Teresita Carrasquillo RN [facility] 2022-10-26 19:11:55 MWpCKEp7lcSqma50vaH0 ++Gg9m/Cl0Wl /A+lm5o57n8glhMIfYOOkh7P+hxyaw9751T19:11:55 Problem: Venous Thromboembolism, (actual or risk of)Goal: Absence of venous thromboembolism (Risk)Outcome: Progressing as expected Problem: PainGoal: Control of pain at or below patient's documented comfort goalOutcome: Progressing as expectedGoal: Reduction in pain sensationOutcome: Progressing as expected Problem: Falls, Risk ofGoal: Absence of fallsOutcome: Progressing as expected Problem: Discharge PlanningGoal: Adequate for dischargeOutcome: Progressing as expectedGoal: Effective communicationOutcome: Progressing as expected 29430-4Pren of care lkyySO9487-67-81I55:11:58Plan of care noteTXT1.2.840.553045.1.13.104.2.7 .2.036639|[id number] for patient nfld39311-3TueqSM263493905Doxybxrt Rosales RN[id number] 20JOWWOCALDVKSVBTVDBQJKE0921-83-11 T19:11:581.2.840.673899.1.72.3.15| 1.2.840.098013.1.13.104.2.7.2.7278 [id number] Ayesha Oh [facility] 2022-10-26 01:15:33 XWd+2w/9S29yghIfJltx 2bDIDc9i7MY8iu xy1aFBBeMdJnwr+F1HuFYAJ6QlTmWq0937 -09-14T01:15:33 Problem: Venous Thromboembolism, (actual or risk of)Goal: Absence of venous thromboembolism (Risk)Outcome: Progressing as expected Problem: PainGoal: Control of pain at or below patient's documented comfort goalOutcome: Progressing as expectedGoal: Reduction in pain sensationOutcome: Progressing as expected Problem: Falls, Risk ofGoal: Absence of fallsOutcome: Progressing as expected Problem: Discharge PlanningGoal: Adequate for dischargeOutcome: Progressing as expectedGoal: Effective communicationOutcome: Progressing as expected 76640-8Qpux of care rtmmIF9306-65-09H57:15:36Plan of care noteTXT1.2.840.758460.1.13.104.2.7 .2.481269|[id number] for patient alyt03591-7GopkTY646922544Zjcpj M. Kurian RNUT[id number] 09SNEFUBMOMIBSDBRIKSCZTQ3626-67-05 T01:15:361.2.840.531767.1.72.3.15| 1.2.840.486421.1.13.104.2.7.2.7278 [id number] Shayla Royal RN [facility] 2022-10-25 02:00:19 JwMkk85FeTZlgY3OT0cd rsW2XEcxgnHi77 H8kkb7N4Hnnl/VNDBQSIDywtQmRhOC1115 -09-13T02:00:19 Problem: Venous Thromboembolism, (actual or risk of)Goal: Absence of venous thromboembolism (Risk)Outcome: Progressing as expected Problem: PainGoal: Control of pain at or below patient's documented comfort goalOutcome: Progressing as expectedGoal: Reduction in pain sensationOutcome: Progressing as expected Problem: Falls, Risk ofGoal: Absence of fallsOutcome: Progressing as expected Problem: Discharge PlanningGoal: Adequate for dischargeOutcome: Progressing as expectedGoal: Effective communicationOutcome: Progressing as expected 08333-4Lwfk of care oiyfVJ3788-00-57H03:00:22Plan of care noteTXT1.2.840.220244.1.13.104.2.7 .2.652605|[id number] for patient bpou31318-5OihqDVBCIOPJDV[id number] 23MVNNOQRDBWOECCQLGPSUJW7708-21-02 T02:00:221.2.840.867334.1.72.3.15| 1.2.840.401514.1.13.104.2.7.2.7278 [id number] [facility] 2022-10-24 18:42:16 MqLw1YEBiyihC3E4BAvk ascJOgeL8YQU8T m7eVC47Z6nv/GflyijLaJvtuHH+fge60552022T18:42:16 Problem: Venous Thromboembolism, (actual or risk of)Goal: Absence of venous thromboembolism (Risk)Outcome: Progressing as expected Problem: PainGoal: Control of pain at or below patient's documented comfort goalOutcome: Progressing as expectedGoal: Reduction in pain sensationOutcome: Progressing as expected Problem: Falls, Risk ofGoal: Absence of fallsOutcome: Progressing as expected Problem: Discharge PlanningGoal: Adequate for dischargeOutcome: Progressing as expectedGoal: Effective communicationOutcome: Progressing as expected 79425-5Gtdp of care awwjAO2640-58-99O84:42:21Plan of care noteTXT1.2.840.776399.1.13.104.2.7 .2.428892|[id number] for patient hkcl75977-9AuxlAO171895530Hzxmnj A A Arroyo Ramirez RN[address] NaduPgetnypsmEqhihgzydTZEN36428468 64BUKOMQTURNWDKREUBINZHM7565-79-95 T18:42:211.2.840.387305.1.72.3.15| 1.2.840.780234.1.13.104.2.7.2.7278 [id number] Zaina Osorio RN [facility] 2022-10-24 13:05:15 9JYrXRl91bync2YIQ2yh AFvv2jUbb11Vs/ 6/RdDdACAiCa9B5t3e1tsNa/Q3CRmg13512022T13:05:15 Nurse Report Report given to VALERIA Hodge. Chief complaint, assessment findings, and orders reviewed. Plan of care discussed with both nurses. [place] verbalized [place] [address]-4Atqjrpeej department UbmrRP8061-89-83N68:05:50[facility] NoteTXT1.2.840.470368.1.13.104.2.7 .2.249015|[id number] for patient yqlq31623-6AalrCS757059884Nizueesy M Rivera RN[id number] 65TQSBBNEYNPDJVFXTQSVPLI1353-86-87 T13:05:501.2.840.738271.1.72.3.15| 1.2.840.074029.1.13.104.2.7.2.7278 [id number] Jessica Weaver RN [facility] 2022-10-24 12:49:11 fxvloQK2QQzCDfyY0jrg W7SBhcaIN3wJAI /Et+P1IBt9KJFxk87bPLIIHo2dhQoS3103 -09-12T12:49:11 Patient admitted to med-surg for diagnosis of hypertensive emergency, elevated troponin, and BELL.Patient agrees to admission, discussed plan of care with patient.Patient is awake, alert, oriented, resp reg unlabored, color appropriate for race, PIV intact.No adverse reaction to medications administered while in ED.Belongings with patient to unit. 17275-6Sguabdhkl department AnquZR1595-98-67P73:49:49Emerv[facility] department NoteTXT1.2.840.332301.1.13.104.2.7 .2.976620|[id number] for patient imbd83781-8OzncPVLHDNTNTX[id number] 75AEOQZDUTLTPTIKZGISMYWK0829-60-76 T12:49:491.2.840.114298.1.72.3.15| 1.2.840.387423.1.13.104.2.7.2.7278 [id number] [facility] 2022-10-24 09:29:58 2oda9BnM35aZOrK/n6dM lRuPsIQ6nlRxF9 z9L9Gfq/ymdBGsms1jkios3b4VhsSR4412 -09-12T09:29:58 Noticed growth on face two weeks ago. Thought it was a hair bump but now its hanging off his face. Also needs medications refilled. Has been out of BP meds for over a month. 36907-8Qqvqvfjkw department Triage komzBP9045-26-38R88:32:41Emergency department Triage noteTXT1.2.840.207674.1.13.104.2.7 .2.113121|[id number] for patient oqnz85943-9Zjmhoqywz department KnjjXD402140421Cmlbgxg Fief RN[id number] 60MZZHMURBYTEVCFZUWTWFPG9916-96-76 T09:32:411.2.840.796137.1.72.3.15| 1.2.840.276382.1.13.104.2.7.2.7278 [id number] Gabriella Adan RN [facility] 2022-10-24 09:21:00 erRTeo1gAopq9/VmbtKb xFnS+x8utWRUvx KFVOeHWSOHk/FMs38Hk2gmulgxSbSQ7023 -09-12T09:21:00Associated Order(s): EKG-12 Lead ROUTINE ONCEPre-Procedure Diagnose(s): Hypertensive urgencyPost-Procedure Diagnose(s): Hypertensive urgency Images from the original note were not included.[facility] Emergency Department NotePatient Name: Zander MelvinDate of : 1960 61 year old maleTreatment Room: [place] [address]Medical Record Number: [id number] Care Physician: PATIENT DOES NOT HAVE A [...] hemoptysis, nausea, vomiting or diarrhea.History provided by: PatientLanguage nursing home assistant used: No Past Medical History/Immunizations:Past Medical History: Diagnosis Date CAD (coronary artery disease) CKD (chronic kidney disease) stage 2, GFR 60-89 ml/min HTN (hypertension) MA (myocardial infarction) Other hyperlipidemia S/P arterial stent Allergies:No Known AllergiesPast Social History:Tobacco Use Some Days; 0.25 packs/day; Types: Cigarettes Passive Exposure: Past Smokeless Tobacco: Never used smokeless tobacco. Alcohol Use Not Currently. Past Surgical History:Past Surgical History: Procedure Laterality Date DEBRIDEMENT LOWER EXTREMITY (SHX) Left 07/15/2022 Surgeon: Chela Treviño MD; [facility]: [facility] Review of Systems: Review of Systems Constitutional: [...] Procedures CBC WITH DIFF COMP. METABOLIC PANEL (03956) TROPONIN I No orders of the defined [...] ED Physician in the absence of a manager hris: yes Previous ECG: Previous ECG: Compared to [...] CYSTHYPERTENSIVE URGENCYELECTROLYTE ABNORMALITYCARDIAC ARRHYTHMIASRENAL INSUFFICIENCYHYPERTENSIVE EMERGENCYMedical Decision MakingElvimal Melvin is a 61 year old male [...] patient. Patient seen and evaluated by CHARLA. 74825-6Vufatvngt Emergency department OimrNA3854300Uzbrai, Phillip1.2.840.314548.1.13.104.2.7 .2.395386NvojtqRgtjabcBH0367-84-76 T13:44:48Physician Emergency department NoteTXT1.2.840.069901.1.13.104.2.7 .2.906553|[id number] for patient uvok57943-5Wnusmyfid department NoteLNUT[address] TkkvVmkjqzfqpXhunkcbdqSFDS53563288 85MWCACMZUPEHBDGPKBVZGVL7980-83-99 T13:44:481.2.840.711363.1.72.3.15| 1.2.840.838072.1.13.104.2.7.2.7278 [id number] [facility]
[2023-06-02] MEDS ORDERED: LOSARTAN POTASSIUM 50 MG TABLET ONE (14:21)
[2023-06-02] MEDS ORDERED: HYDRALAZINE HCL 25 MG TABLET ONE (14:21)
[2023-06-02 14:31] LABS: Absolute Eosinophils 0.2 K/uL (0-0.5); Absolute Monocytes 0.5 K/uL (0.1-1.3); Basophils % 0.7 % (0-1.3); Eosinophils % 4.8 % (0-4.4); Hematocrit 22.1 % (39.6-49.0); Hemoglobin 7.3 g/dL (13.6-17.9); Lymphocytes % 21.3 % (15.3-44.8); MCHC 32.9 g/dL (32.0-36.0); MPV 7.2 fL (7.6-11.3); Monocytes % 10.6 % (3.3-12.3); Neutrophils % 62.6 % (41.7-73.7); Nucleated Red Blood Cells % 0.3 % (0-0); Platelets 153 thou/uL (152-406); Red Cell Distribution Width 13.6 % (12.1-15.2)
[2023-06-02 14:45] LABS: Albumin 2.8 g/dL (3.4-5.0); Albumin/Globulin Ratio 0.8 (1.1-1.8); Anion Gap 10.4 mEq/L (5.0-15.0); Bilirubin Total 0.3 mg/dL (0.2-1.0); Globulin 3.7 g/dL (2.3-3.5); Magnesium 2.1 mg/dL (1.6-2.4); Phosphorus 4.5 mg/dL (2.5-4.9); Potassium 5.4 mEq/L (3.5-5.1); Protein, Total 6.5 g/dL (6.4-8.2)
--- NOTE | 2023-06-02 17:12 | ER ---
Nurse's Notes [facility] Name: Zander Melvin Age: 62 yrs Sex: Male : 1960 Arrival Date: 06/02/2023 Time: 13:44 Bed 2 Private MD: Diagnosis: End-stage renal disease;Hyperkalemia;Hypertension Presentation: 06/01 13:50 Chief complaint: Patient states: I haven't had dialysis in 2 months, they always say I iw dont need it, I've been feeling weak, and I need to get my BP medicine filled. ran out of his medicine yesterday. Coronavirus screen: At this time, the client does not indicate any symptoms associated with coronavirus-19. Ebola Screen: Patient negative for fever greater than or equal to 101.5 degrees Fahrenheit, and additional compatible Ebola Virus Disease symptoms Patient denies exposure to infectious person. Patient denies travel to an Ebola-affected area in the 21 days before illness onset. No symptoms or risks identified at this time. Initial Sepsis Screen: Does the patient meet any 2 criteria? No. Patient's initial sepsis screen is negative. Does the patient have a suspected source of infection? No. Patient's initial sepsis screen is negative. Risk Assessment: Do you want to hurt yourself or someone else? Patient reports no desire to harm self or others. Onset of symptoms. 13:50 Method Of Arrival: Ambulatory iw 13:50 Acuity: JAMES 3 iw Triage Assessment: 14:00 General: Appears in no apparent distress. comfortable, Behavior is calm, cooperative, bp appropriate for age. Pain: Denies pain. Historical: - Allergies: 13:51 No Known Allergies; iw - PMHx: 13:51 DIALYSIS MWF (DIALYSIS MWF); Hypertensive disorder; iw - PSHx: 13:51 I\T\D facial abscess; iw - Immunization history:: Adult Immunizations up to date. - Infectious Disease History:: Denies. - Social history:: Smoking status: Patient/guardian denies using tobacco, the patient reports quitting approximately 1 years ago. - Family history:: not pertinent. Screenin:00 [facility] ED Fall Risk Assessment (Adult) History of falling in the last 3 months, bp including since admission No falls in past 3 months (0 pts). Abuse screen: Denies threats or abuse. Denies injuries from another. Nutritional screening: No deficits noted. Tuberculosis screening: No symptoms or risk factors identified. Assessment: 14:00 General: SEE TRIAGE NOTE. bp 14:57 Reassessment: Patient appears in no apparent distress at this time. Patient is alert, bp oriented x 3, equal unlabored respirations, skin warm/dry/pink. 16:36 Reassessment: PT TBA FOR HD, PER NEPHROLOGY. bp 17:50 Reassessment: REPORT FAXED TO [facility], MARISELA SHAW NOTIFIED. bp 18:23 Reassessment: Patient appears in no apparent distress at this time. Patient and/or ph family updated on plan of care and expected duration. Pain level reassessed. Patient is alert, oriented x 3, equal unlabored respirations, skin warm/dry/pink. Pt tajken to 4th floor via wheelchair. Vital Signs: 13:50 BP 205 / 101; Pulse 58; Resp 18; Temp 99; Pulse Ox 100% on R/A; Weight 104.33 kg; iw Height 5 ft. 11 in. ; 14:39 BP 181 / 88; Pulse 54; Resp 18; Pulse Ox 99% on R/A; ph 14:57 BP 170 / 87; Pulse 53; Resp 16; Pulse Ox 99% ; bp 16:37 BP 181 / 93; Pulse 51; Resp 16; Pulse Ox 100% ; bp 18:02 BP 193 / 97; Pulse 53; Resp 16; Pulse Ox 100% ; bp 13:50 Body Mass Index 32.08 (104.33 kg, 180.34 cm) iw ED Course: 13:46 Patient arrived in ED. mr 13:51 Terry Moulton MD is Attending Physician. rt 13:51 Triage completed. iw 13:52 Arm band placed on. iw 13:53 Griffin Balderrama, VALERIA is Primary Nurse. bp 14:24 CBC with Diff Sent. bp 14:24 CMP Sent. bp 14:24 Magnesium Sent. bp 14:24 Phosphorus Sent. bp 14:24 Inserted saline lock: 22 gauge in left antecubital area, using aseptic technique. Blood bp collected. 14:28 Patient has correct armband on for positive identification. bp 17:11 [place] is Hospitalizing Provider. rt 18:23 No provider procedures requiring assistance completed. Patient admitted, IV remains in ph place. Administered Medications: 14:39 Drug: Losartan PO 50 mg PO once Route: PO; ph 17:06 Follow up: Response: No adverse reaction bp 14:39 Drug: HydrALAZINE PO 100 mg PO once Route: PO; ph 17:06 Follow up: Response: No adverse reaction bp Medication: 14:00 VIS not applicable for this client. bp Outcome: 17:12 Decision to Hospitalize by Provider. rt 18:23 Admitted to Med/surg accompanied by tech, via wheelchair, room 405, ph 18:23 Condition: stable 18:23 Instructed on the need for admit, 18:23 Patient left the ED. ph Signatures: Cheryl Weaver, Reg Reg mr Sharda Goff RN RN iw Zulma Red RN RN ph Griffin Balderrama RN RN bp Terry Moulton MD MD rt
--- NOTE | 2023-06-02 17:12 | EDPHYS ---
Physician Documentation [facility] Name: Zander Melvin Age: 62 yrs Sex: Male : 1960 Arrival Date: 06/02/2023 Time: 13:44 Bed 2 Private MD: ED Physician Terry Moulton HPI: 06/01 17:15 This 62 yrs old Black Male presents to ER via Ambulatory with complaints of Dialysis rt port check, Medication Refill. 17:15 Patient presents to the ED requesting dialysis. States that he does not feel well, rt cannot be more specific. Does report hypertension, states that he ran out of multiple antihypertensive medications. Denies other acute complaints at this time, symptoms are moderate severity, no other aggravating or alleviating factors.. Historical: - Allergies: 13:51 No Known Allergies; iw - PMHx: 13:51 DIALYSIS MWF (DIALYSIS MWF); Hypertensive disorder; iw - PSHx: 13:51 I\T\D facial abscess; iw - Immunization history:: Adult Immunizations up to date. - Infectious Disease History:: Denies. - Social history:: Smoking status: Patient/guardian denies using tobacco, the patient reports quitting approximately 1 years ago. - Family history:: not pertinent. ROS: 17:15 Cardiovascular: Negative for chest pain, palpitations, and edema, Respiratory: Negative rt for shortness of breath, cough, wheezing, and pleuritic chest pain, Abdomen/GI: Negative for abdominal pain, nausea, vomiting, diarrhea, and constipation, MS/Extremity: Negative for injury and deformity, Skin: Negative for injury, rash, and discoloration, Neuro: Negative for headache, weakness, numbness, tingling, and seizure, 17:15 Constitutional: Positive for fatigue, malaise, Exam: 17:15 Constitutional: This is a well developed, well nourished patient who is awake, alert, rt and in no acute distress. Head/Face: Normocephalic, atraumatic. Chest/axilla: Normal chest wall appearance and motion. Nontender with no deformity. No lesions are appreciated. Cardiovascular: Regular rate and rhythm with a normal S1 and S2. No gallops, murmurs, or rubs. Normal PMI, no JVD. No pulse deficits. Respiratory: Lungs have equal breath sounds bilaterally, clear to auscultation and percussion. No rales, rhonchi or wheezes noted. No increased work of breathing, no retractions or nasal flaring. Abdomen/GI: Soft, non-tender, with normal bowel sounds. No distension or tympany. No guarding or rebound. No evidence of tenderness throughout. Skin: Warm, dry with normal turgor. Normal color with no rashes, no lesions, and no evidence of cellulitis. MS/ Extremity: Pulses equal, no cyanosis. Neurovascular intact. Full, normal range of motion. Neuro: Awake and alert, GCS 15, oriented to person, place, time, and situation. Cranial nerves II-XII grossly intact. Motor strength 5/5 in all extremities. Sensory grossly intact. Cerebellar exam normal. Normal gait. 17:15 ECG was reviewed by the Attending Physician. Vital Signs: 13:50 BP 205 / 101; Pulse 58; Resp 18; Temp 99; Pulse Ox 100% on R/A; Weight 104.33 kg; iw Height 5 ft. 11 in. ; 14:39 BP 181 / 88; Pulse 54; Resp 18; Pulse Ox 99% on R/A; ph 14:57 BP 170 / 87; Pulse 53; Resp 16; Pulse Ox 99% ; bp 16:37 BP 181 / 93; Pulse 51; Resp 16; Pulse Ox 100% ; bp 18:02 BP 193 / 97; Pulse 53; Resp 16; Pulse Ox 100% ; bp 13:50 Body Mass Index 32.08 (104.33 kg, 180.34 cm) iw MDM: 13:56 Patient medically screened. rt 17:15 Data reviewed: vital signs, nurses notes, lab test result(s), EKG. Consideration of rt Admission/Observation Patient was admitted/placed on observation. Management of patient was discussed with the following: Mold Shifter: Discussed with eyeglass maker, will dialyze in the hospital. Care significantly affected by the following chronic conditions: Hypertension, Chronic Kidney Disease. Counseling: I had a detailed discussion with the patient and/or guardian regarding the historical points, exam findings, and any diagnostic results supporting the discharge/admit diagnosis, lab results, the need for further work-up and treatment in the hospital. 06/01 14:04 Order name: CBC with Diff; Complete Time: 14:47 rt 06/01 14:04 Order name: CMP; Complete Time: 14:47 rt 06/01 14:04 Order name: Magnesium; Complete Time: 14:47 rt 06/01 14:04 Order name: Phosphorus; Complete Time: 14:47 rt 06/01 17:06 Order name: Basic Metabolic Panel EDMS 06/01 17:06 Order name: Basic Metabolic Panel EDMS 06/01 17:06 Order name: CBC with Automated Diff EDMS 06/01 17:06 Order name: CBC with Automated Diff EDMS 06/01 17:06 Order name: Magnesium EDMS 06/01 17:06 Order name: Magnesium EDMS 06/01 17:06 Order name: Phosphorus EDMS 06/01 17:06 Order name: Phosphorus EDMS 06/01 17:06 Order name: CONS Physician Consult EDMS 06/01 14:04 Order name: EKG - Nurse/Tech; Complete Time: 14:39 rt EC:15 Rate is 53 beats/min. Rhythm is regular, Sinus bradycardia with No ectopy, LVH present. rt Left axis deviation noted. [place] interval is normal. QRS interval is normal. QT interval is normal. No Q waves. No ST changes noted. Interpreted by me. Administered Medications: 14:39 Drug: Losartan PO 50 mg PO once Route: PO; ph 17:06 Follow up: Response: No adverse reaction bp 14:39 Drug: HydrALAZINE PO 100 mg PO once Route: PO; ph 17:06 Follow up: Response: No adverse reaction bp Disposition Summary: 06/02/23 17:12 Hospitalization Ordered Notes: Hospitalization Status: Observation rt Provider: [place] rt Location: Telemetry/MedSurg (observation) rt Condition: Stable rt Problem: an ongoing problem rt Symptoms: are unchanged rt Bed/Room Type: Standard rt Room Assignment: 405(06/02/23 17:47) em1 Diagnosis - End-stage renal disease rt - Hyperkalemia rt - Hypertension rt Forms: - Medication Reconciliation Form rt - SBAR form rt - Leadership Thank You Letter rt Signatures: Dispatcher [employer] Sharda Briggs, RN Tom Cheek em1 Zulma Red RN RN ph [place], Ryan, MD MD rt Griffin Balderrama RN bp Corrections: (The following items were deleted from the chart) 14:04 14:04 CBC+H.LAB.BRZ ordered. EDMS EDMS 14:04 14:04 COMPREHENSIVE METABOLIC PANEL+C.LAB.BRZ ordered. EDMS EDMS 14: 14:04 MAGNESIUM+C.LAB.BRZ ordered. EDMS EDMS 14: 14:04 PHOSPHORUS+C.LAB.BRZ ordered. EDMS EDMS 17:47 17:12 rt em1
--- NOTE | 2023-06-02 17:32 | P.HP ---
Certification for Inpatient Patient admitted to: Observation With expected LOS: <2 Midnights Patient will require the following post-hospital care: None Practitioner: I am a practitioner with admitting privileges, knowledge of patient current condition, hospital course, and medical plan of care. Services: Services provided to patient in accordance with Admission requirements found in Title 42 Section 412.3 of the Code of Federal Regulations Patient History Date of Service: 06/02/23 Reason for admission: ESRD, dialysis History of Present Illness: Zander Melvin is a 62-year-old male with past medical history of hypertensive disorder and end-stage renal disease on dialysis who presented to the ED with complaints nausea, vomiting, chills, and weakness that started yesterday. He reports making small amount of urine daily. Dr. Chu was consulted and plans for dialysis today 06/02/2023. On examination he presents fatigued, weak, lungs clear, and blood pressure elevated. Initial vitals BP 205 / 101; Pulse 58; Resp 18; Temp 99; Pulse Ox 100% on R/A Laboratory evaluation H&H 7.3/22.1, potassium 5.4, BUN/creatinine 83/11, GFR 5 Zander will be admitted to hospitalist service for further treatment of end-stage renal disease requiring dialysis today, Dr. Chu consulted. Allergies No Known Allergies Allergy (Unverified 06/29/14 13:48) Home Medications: Hydralazine HCl 100 mg PO TID 90 Days #270 tab 02/16/23 Losartan Potassium [Cozaar*] 50 mg PO BID 90 Days #180 tab 02/16/23 Nifedipine [Procardia Xl] 90 mg PO BID 90 Days #180 tab 02/16/23 cloNIDine HCL [Catapres*] 0.1 mg PO BID 30 Days #60 tab 03/03/23 Heparin [Heparin 1,000 units/mL *] 6,000 unit IV EVERY HD PRN vial 03/08/23 - Past Medical/Surgical History Diabetic: Yes -: HTN -: CKD -: DM -: ESRD -: I/T/D facial abscess - Family History Family History: Reviewed- Non-Contributory - Social History Smoking Status: Never smoker Alcohol use: Yes CD- Drugs: Yes Caffeine use: Yes Review of Systems General: Chills, Weakness Gastrointestinal: Nausea, Vomiting Physical Examination - Physical Exam General: Alert, Oriented x3, Other (uncomfortable) HEENT: Atraumatic, Normocephalic, PERRLA Neck: Supple, 2+ carotid pulse no bruit Respiratory: Clear to auscultation bilaterally, Normal air movement Cardiovascular: Normal pulses, Regular rate/rhythm, Normal S1 S2, Edema Capillary refill: <2 Seconds Gastrointestinal: Hypoactive, Soft and benign, Distended Musculoskeletal: No contractures Integumentary: No breakdown Neurological: Normal speech, Normal tone - Studies Laboratory Data (last 24 hrs) 06/02/23 06/02/23 14:20 14:20 WBC 4.90 Hgb 7.3 L Hct 22.1 L Plt Count 153 Sodium 140 Potassium 5.4 H BUN 83 H Creatinine 11.00 H Glucose 120 H Phosphorus 4.5 Magnesium 2.1 Total Bilirubin 0.3 AST 6 L ALT 14 L Alkaline Phosphatase 67 Assessment and Plan - Plan Assessment and plan End-stage renal disease requiring dialysis Hyperkalemia Mild metabolic acidosis Weakness, nausea, vomiting BUN/creatinine 83/11, GFR 5, K 5.4, CO220 Dr. Chu consulteddialysis expected today I and O daily weight supportive care Anemia of chronic disease H/H 7.3/22.1 Monitor H&H closely Transfuse as needed Hyperglycemic Serum glucose 120 monitor in AM labs History HTN Continue home medications Initial blood pressure 205 / 101 Monitor BP every 4 hours DVT ppx SCD Full code LOS 24 hours Discharge Plan: Home Plan to discharge in: 24 Hours - Advance Directives Does patient have a Living Will: No Does patient have a Durable POA for Healthcare: No
[2023-06-02] MEDS ORDERED: FUROSEMIDE 40 MG/4 ML VIAL IV ONE (17:41)
[2023-06-02 18:39] LABS: Hepatitis B Surface Ab - Quant 29.72 mIU/mL (<8.0); Hepatitis B surface AG Interp. Nonreactive (Nonreactive)
[2023-06-02 18:40] LABS: HBsAG Nonreactive Report Report
[2023-06-02 19:00] VITALS: O2SAT 100
[2023-06-02] MEDS: SODIUM BICARB 325 MG TAB PO SCH (22:43)
[2023-06-02] MEDS: HYDRALAZINE HCL 20 MG/ML VIAL IV PRN (22:45)
[2023-06-02] MEDS ORDERED: SODIUM ZIRCONIUM CYCLOSILICATE 10 GM/PKT PO ONE (23:00)
[2023-06-02 23:12] LABS: Anion Gap 11.4 mEq/L (5.0-15.0); Potassium 5.4 mEq/L (3.5-5.1)
[2023-06-03] MEDS: SOD POLYSTYREN SUL 15 GM/60 ML UCUP PO ONE (00:02)
[2023-06-03 00:33] VITALS: BMI 32.1
[2023-06-03 03:19] LABS: Absolute Eosinophils 0.3 K/uL (0-0.5); Absolute Lymphocytes (CBC) 1.4 K/uL (0.7-4.9); Absolute Monocytes 0.5 K/uL (0.1-1.3); Absolute Neutrophil 2.6 K/uL (1.8-8.0); Eosinophils % 5.9 % (0-4.4); Hematocrit 22.7 % (39.6-49.0); Hemoglobin 7.3 g/dL (13.6-17.9); Lymphocytes % 28.9 % (15.3-44.8); MCH 26.6 pg (27.0-35.0); MCHC 32.2 g/dL (32.0-36.0); MCV 82.6 fL (80-100); MPV 7.8 fL (7.6-11.3); Monocytes % 11.2 % (3.3-12.3); Platelets 159 thou/uL (152-406); RBC Red Blood Cell Count 2.75 M/uL (4.33-5.43); Red Cell Distribution Width 14.1 % (12.1-15.2)
[2023-06-03 03:51] LABS: Albumin 2.4 g/dL (3.4-5.0); Albumin/Globulin Ratio 0.7 (1.1-1.8); Anion Gap 12.1 mEq/L (5.0-15.0); Bilirubin Total 0.3 mg/dL (0.2-1.0); Ferritin 196.5 ng/mL (26-388); Globulin 3.5 g/dL (2.3-3.5); Magnesium 2.2 mg/dL (1.6-2.4); Phosphorus 4.6 mg/dL (2.5-4.9); Potassium 5.1 mEq/L (3.5-5.1); Protein, Total 5.9 g/dL (6.4-8.2)
[2023-06-03] MEDS ORDERED: D50W 25 GM/50 ML SYRINGE IV PRN (06:52)
[2023-06-03] MEDS ORDERED: GLUCAGON 1 MG/VIAL IM PRN (06:52)
--- NOTE | 2023-06-03 07:01 | P.PN ---
Date of Service: 06/03/23 Subjective Awake and feeling well this morning Conversing well Awaiting dialysis today Continues to be hypertensive ROS 10 point ROS as noted above, otherwise negative Physical Exam General: Alert, Oriented x3, no acute distress, other (uncomfortable) HEENT: Atraumatic, Normocephalic, PERRLA Neck: Supple, 2+ carotid pulse no bruit Respiratory: Clear to auscultation bilaterally, symmetrical chest wall movement, on room air Cardiovascular: Normal pulses, Regular rate/rhythm, Normal S1 S2, Edema Capillary refill: <2 Seconds Gastrointestinal: Soft and benign on palpation, Distended Musculoskeletal: No contractures Integumentary: No breakdown Neurological: Normal speech, Normal tone Vitals Reviewed Problem list End-stage renal disease requiring dialysis Hyperkalemia Mild metabolic acidosis Weakness, nausea, vomiting Anemia of chronic disease Hyperglycemic History HTN Assessment and Plan End-stage renal disease requiring dialysis Hyperkalemia Mild metabolic acidosis Weakness, nausea, vomiting BUN/creatinine 84/10.8, GFR 5, K 5.1, CO2 19 Dr. Chu consulteddialysis ordered I and O- UOP 400 ml overnight daily weight supportive care bicarb gtt retacrit x1 lasix 80 mg PO daily Anemia of chronic disease Iron deficiency anemia H/H 7.3/22.7 Monitor H&H closely Iron 54, TIBC 211, Transferrin 151, Saturation 25, ferritin 196 Transfuse as needed Hyperglycemic Serum glucose 120 monitor in AM labs History HTN Continue home medications Initial blood pressure 205 / 101 Monitor BP every 4 hours hydralazine PRN DVT ppx SCD d/t anemia Full code LOS 2 days
[2023-06-03] MEDS: INSULIN REGULAR (HUMAN) 100 UNIT/ML SQ SCH (07:30)
[2023-06-03] MEDS: EPOETIN ALFA 10,000 UNIT/ML VIAL IV SCH (08:00)
[2023-06-03] MEDS: FUROSEMIDE 40 MG TABLET PO SCH (08:58)
[2023-06-03] MEDS: NIFEDIPINE XL 60 MG TABLET PO SCH (08:58)
[2023-06-03] MEDS: LOSARTAN POTASSIUM 50 MG TABLET PO SCH (08:59)
[2023-06-03] MEDS ORDERED: HEPARIN 5000 UNIT/ML 1 ML VIAL SQ SCH (09:00)
[2023-06-03] MEDS: HOME MED 1 EA UNK (Hydralazine Hcl [Hydralazine Hcl] 100 MG Tablet) PO SCH (09:00)
[2023-06-03] MEDS: HYDRALAZINE HCL 25 MG TABLET PO SCH (17:41)
[2023-06-03 17:52] VITALS: BP 173/89; TEMP 98.7
--- NOTE | 2023-06-03 18:23 | P.DS ---
Admission Date: 06/02/23 Discharge Date: 06/03/23 Disposition: ROUTINE DISCHARGE Discharge Condition: GOOD Reason for Admission: ESRD, dialysis Brief History of Present Illness: Diagnosis End-stage renal disease requiring dialysis Hyperkalemia Mild metabolic acidosis Weakness, nausea, vomiting Anemia of chronic disease Hyperglycemic History HTN HPI 06/02/23 Zander Melvin is a 62-year-old male with past medical history of hypertensive disorder and end-stage renal disease on dialysis who presented to the ED with complaints nausea, vomiting, chills, and weakness that started yesterday. He reports making small amount of urine daily. Dr. Chu was consulted and plans for dialysis today 06/02/2023. On examination he presents fatigued, weak, lungs clear, and blood pressure elevated. Initial vitals BP 205 / 101; Pulse 58; Resp 18; Temp 99; Pulse Ox 100% on R/A Laboratory evaluation H&H 7.3/22.1, potassium 5.4, BUN/creatinine 83/11, GFR 5 Zander will be admitted to hospitalist service for further treatment of end-stage renal disease requiring dialysis today, Dr. Chu consulted. Hospital Course: Zander Melvin is a pleasant 62 year old male with a past medical history significant for hypertensive disorder and end-stage renal disease who was admitted to the [facility] on 06/02/23 for Nausea, vomiting, and weakness. Zander Melvin presented to the ED with chief complaint of fatigue, weakness, nausea and vomiting. Dr. Chu was consulted and requested dialysis on admission. He has tolerated dialysis well. Continue dialysis on your normal schedule. Please follow-up with nephrology due to new medications that will need to be managed outpatient. Please monitor your blood pressure, change made to hydralazine. Tolerating p.o. diet, ambulating independently, and hemodynamically stable for discharge. On 06/03/23, Zander was seen on morning rounds and deemed medically stable for discharge. Zander was discharged with instructions to schedule follow-up appointments with PCP and Dr. Chu. Zander was provided prescriptions for hydralazine, nifedipine, Na bicarb, lasix, and losartan. The patient was given the opportunity to ask questions and reported no further questions. Furthermore, all questions were answered to the best of my ability. A copy of this discharge summary will be sent to the above providers to facilitate continuity of care. General: AAOx3, NAD HEENT: Atraumatic, Normocephalic, PERRLA Neck: Supple, 2+ carotid pulse no bruit Respiratory: Clear to auscultation bilaterally, symmetrical chest wall movement, on room air Cardiovascular: Regular rate/rhythm, Normal S1 S2, Edema Capillary refill: <2 Seconds Gastrointestinal: Soft and benign on palpation, Distended Musculoskeletal: No contractures Integumentary: No breakdown Neurological: Normal speech, Normal tone Vital Signs/Physical Exam: Temp Pulse Resp BP Pulse Ox 98.7 F 65 15 173/89 H 96 06/03/23 17:35 06/03/23 17:35 06/03/23 17:35 06/03/23 17:35 06/03/23 17:35 Laboratory Data at Discharge: WBC 4.90 thou/uL (4.3-10.9) 06/03/23 02:56 Hgb 7.3 g/dL (13.6-17.9) L 06/03/23 02:56 Hct 22.7 % (39.6-49.0) L 06/03/23 02:56 Plt Count 159 thou/uL (152-406) 06/03/23 02:56 Sodium 141 mEq/L (136-145) 06/03/23 02:56 Potassium 5.1 mEq/L (3.5-5.1) 06/03/23 02:56 BUN 84 mg/dL (7-18) H 06/03/23 02:56 Creatinine 10.80 mg/dL (0.70-1.30) H 06/03/23 02:56 Glucose 139 mg/dL (74-106) H 06/03/23 02:56 Phosphorus 4.6 mg/dL (2.5-4.9) 06/03/23 02:56 Magnesium 2.2 mg/dL (1.6-2.4) 06/03/23 02:56 Total Bilirubin 0.3 mg/dL (0.2-1.0) 06/03/23 02:56 AST 6 U/L (15-37) L 06/03/23 02:56 ALT 12 U/L (16-61) L 06/03/23 02:56 Alkaline Phosphatase 64 U/L (45-117) 06/03/23 02:56 Home Medications: Losartan Potassium [Cozaar*] 50 mg PO BID 90 Days #180 tab 02/16/23 Nifedipine [Procardia Xl] 60 mg PO BID 06/02/23 cloNIDine HCL [Catapres*] 0.1 mg PO BEDTIME 06/02/23 Furosemide [Lasix] 40 mg PO BID 7 Days #14 tab 06/03/23 Hydralazine [Apresoline*] 50 mg PO TID 30 Days #90 tab 06/03/23 Na Bicarb Tab [Sodium Bicarb 325 MG Tab*] 325 mg PO BID 7 Days #14 tab 06/03/23 New Medications: Hydralazine [Apresoline*] 50 mg PO TID 30 Days #90 tab Furosemide [Lasix] 40 mg PO BID 7 Days #14 tab Na Bicarb Tab [Sodium Bicarb 325 MG Tab*] 325 mg PO BID 7 Days #14 tab Physician Discharge Instructions: Zander Melvin presented to the ED with chief complaint of fatigue, weakness, nausea and vomiting. Dr. Chu was consulted and requested dialysis on admission. He has tolerated dialysis well. Continue dialysis on your normal schedule. Please follow-up with nephrology due to new medications that will need to be managed outpatient. Please monitor your blood pressure, change made to hydralazine. 1. Please call and schedule a follow-up appointment with your PCP in 3-5 days - Please follow-up with your PCP for medication refills/adjustments 2. Please call and schedule a follow-up appointment with Kimberley in one week 3. Continue Renal diet 4. No activity restrictions 5. Return to the ED if symptoms worsen New medication Sodium bicarb 325 mg p.o. twice a day x 7 days Lasix 40 mg p.o. twice daily x 7 days Change of medication Hydralazine 50 mg p.o. 3 times daily Diet: Renal Activity: Ad sergio Followup: Javed Chu MD [ACTIVE - CAN ADMIT] -
[2023-06-03] MEDS ORDERED: cloNIDine HCL 0.1 MG TAB PO SCH (21:00)
--- NOTE | 2023-06-04 12:41 | CON ---
Chief Complaint: End-stage renal disease, on hemodialysis. History Of Present Illness: The patient is a 62-year-old man with past medical history of hypertensi ve heart disease; kidney disease; end-stage renal disease, on dialysis. He presented to the emergenc y room because nausea, vomiting, chills, weakness, and all of symptoms started yesterday. The patien t found to have hyperkalemia, fluid overload patient was found to have a hypertensive urge ncy, blood pressure was creatinine 11. Review of Systems: General: He is feeling better. Denies fever, chills. Eyes: Denies vision changes. Ears, Nose, Mouth, and Throat: Denies sore throat, earache. GI: Denies nausea, vomiting. : Denies dysuria or hematuria. All other are reviewed and all are negative. Past Medical History: Hypertension, chronic kidney disease, end-stage renal disease, diabetes mellit us, anemia, renal osteodystrophy. Social History: Denies tobacco, alcohol, illicit drugs. Physical Examination: GENERAL: Awake, alert, oriented x3. EYES: Anicteric sclerae. EOMI. Ears, Nose, Mouth, and Throat: Oral mucosa moist. No pallor. Neck: Supple. No bruits Lungs: Diminished breath sounds at bases. Heart: S1, S2. Abdomen: Soft, benign. Extremities: No edema. Laboratory Data: Hemoglobin is 7.3, WBC . Sodium 140, potassium 5.4, BUN 83, creatinine 1 1, glucose 120, phosphorus 4.5, magnesium 2. Impression And Plan: 1.End-stage disease, fluid overload received Kayexalate to treat hyperkalemia. Subsequen tly, urgent dialysis was done to provide metabolic clearance. The patient is tolerating dialysis via tunneled dialysis. 2.Anemia of chronic kidney disease. The patient . Continue to monitor hemoglobin level. 3.Hyperglycemia per primary team. 4.Hypertension. Blood pressure medication review. Continue to monitor blood pressure during dialys is. Advance ultrafiltration to control fluid overload. EB/MODL Voice ID: [id number] Report ID: [id number]
== END 2023-06-03 18:45 | disposition home or self-care (01) ==
LOC: ER 13:44 → ERHOLD 17:01 → 4TH 18:06
PROVIDERS: ADMIT Internal Medicine; ATTEND Internal Medicine
DX: E87.70 Fluid overload, unspecified (principal); I12.0 Hypertensive chronic kidney disease with stage 5 chronic kidney disease or end stage renal disease; I16.0 Hypertensive urgency; N18.6 End stage renal disease; E87.5 Hyperkalemia; E87.20 Acidosis, unspecified; D50.9 Iron deficiency anemia, unspecified; R53.1 Weakness; R11.2 Nausea with vomiting, unspecified; D63.8 Anemia in other chronic diseases classified elsewhere; E11.65 Type 2 diabetes mellitus with hyperglycemia; Z99.2 Dependence on renal dialysis; Z91.158 Patient's noncompliance with renal dialysis for other reason
CPT/HCPCS: 85025 ×2; 80048; 36415 ×2; 83735 ×2; 84100 ×2; 82947; 82728; 83540; 80053 ×2; 87340; 86706; 84466; 90935; 99285; J0360 ×3

== ENCOUNTER 2024-01-03 17:28 | Inpatient (IN) | payer OTHER ==
--- OUTSIDE RECORDS SUMMARY | 2024-01-03 17:35 | XMS REPORT | Continuity of Care Document ---
Author Name Unknown Address [address] [place] [id number] [facility] Address [address] [place] [address] Care Team Providers Care Sports Medicine Physician Name Role Phone PCP, PATIENT DOES NOT HAVE A Primary Care Physic carlita Unavailable REAL ROBERT Attending Clinician Unavailable Real Robert MD Attending Clinician [phone] TAMAR SCHMIDT Attending Clinician Unavailced connor Pob, [facility] Main Attending Clinician UnavailIleana Goss MD Attending Clinician [phone] ILEANA HENDRICKSON Attending Clinician UnavailTamar Gillespie Attending Clinician + [phone] RASHEEDA RIOJAS Attending Clinician Unavailable Rasheeda Riojas MD Attending Clinician [phone] Doctor Unassigned, [place] Attending Clinician U lucho Lopez MD, Yohannes K.HSuad Attending Clinician + [phone] MOE VALLEJO Attending Clinician Unavailable Anitra Yen NP Attending Clinician [phone] Moe Vallejo MD Attending Clinician [phone] CADEN HANNA Attending Clinician Unavailable CHELA TREVIÑO Attending Clinician Unavailable PHILLIP PATEL Attending Clinician Unavailable CARLOS GUZMAN Attending Clinician Unavailab CARLOS Mckeon Attending Clinician Unavailab Alyssa Paris LVN Attending Clinician [phone] Josiah Combs MD Attending Clinician Bridgett RUSSELL, Juan F Attending Clinician [phone] [place] RUSSELL, Chela Attending Clinician [phone] EMIL RAMACHANDRAN Attending Clinician Unavailable Emil Ramachandran MD Attending Clinician [phone] Drew SHAW, Cheryl Connor Attending Clinician [phone] Navarro Cat DO Attending Clinician [phone] BARBIE MEJÍA Attending Clinician Unavail able BRYAN SHERMAN Attending Clinician Unavailable Natanael Hendrix MD Attending Clinician [phone] [place] RUSSELL, Urban Attending Clinician [phone] YOHANNES LOPEZ Attending Clinician UnavailNori Chandler Attending Clinician Unavailable REAL ROBERT Admitting Clinician Unavailable Real Robert MD Admitting Clinician [phone] RASHEEDA RIOJAS Admitting Clinician Unavailable MOE VALLEJO Admitting Clinician Unavailable Moe Vallejo MD Admitting Clinician [phone] JUAN F BOYD Admitting Clinician Unavailable Juan F Boyd MD Admitting Clinician [phone] EMIL RAMACHANDRAN Admitting Clinician Unavailable Emil Ramachandran MD Admitting Clinician [phone] [place] MD Admitting Clinician [phone] Payers Payer Name Policy Type Policy Number Effective Date Expirati on Date Source [facility] [id number] 2023 00:00:00 MEDICAID PENDING PENDING 2020 00:00:00 Problems Condition Name Condition Details Condition Category Status Onset Date Resolution Date Last Treatment Date Treating Clinician Comments Source ESRD (end stage renal disease) ESRD (end stage renal disease) Disease Active 2023-02 00:00: 00 [facility] Malfunctio n of arterioven ous dialysis fistula, initial encounter Malfunctio n of arterioven ous dialysis fistula, initial encounter Disease Active 2024-1 0-03 00:00: 00 [facility] ESRD (end stage renal disease) on dialysis ESRD (end stage renal disease) on dialysis Disease Active 6-27 00:00: 00 [facility] Hypertensi ve emergency Hypertensi ve emergency Disease Active 9-12 00:00: 00 [facility] Left leg cellulitis Left leg cellulitis Disease Active 6- 00:00: 00 [facility] BELL (acute kidney injury) BELL (acute kidney injury) Disease Active 424 00:00: 00 [facility] BAV96-ncye radha premature ovarian failure ECZ97-owue radha premature ovarian failure Disease Active 24 00:00: 00 [facility] Coronary artery disease involving kasaan coronary artery of kasaan heart without angina pectoris Coronary artery disease involving kasaan coronary artery of kas[place] heart without angina pectoris Disease Active 4 00:00: 00 [facility] PAD (periphera l artery disease) PAD (periphera l artery disease) Disease Active 424 00:00: 00 [facility] Elevated brain natriureti c peptide (BNP) level Elevated brain natriureti c peptide (BNP) level Disease Active 06-05 00:00: 00 [facility] Coronary artery disease involving kasaan coronary artery of kasaan heart without angina pectoris Coronary artery disease involving kasaan coronary artery of kasaan heart without angina pectoris Disease Active 424 00:00: 00 [facility] Acute renal failure superimpos ed on stage 3 chronic kidney disease Acute renal failure superimpos ed on stage 3 chronic kidney disease Disease Active 424 00:00: 00 [facility] Elevated brain natriureti c peptide (BNP) level Elevated brain natriureti c peptide (BNP) level Disease Active 424 00:00: 00 [facility] Hypertensi ve urgency Hypertensi ve urgency Disease Active 4-23 00:00: 00 [facility] HTN (hypertens ion) HTN (hypertens ion) Disease Active 420 00:00: 00 [facility] Essential hypertensi on Essential hypertensi on Disease Active 8 00:00: 00 [facility] Stage 3 chronic kidney disease Stage 3 chronic kidney disease Disease Active 8 00:00: 00 [facility] History of cocaine abuse History of cocaine abuse Disease Active 8 00:00: 00 [facility] Elevated troponin Elevated troponin Disease Active 09-03 00:00: 00 [facility] Elevated troponin Elevated troponin Disease Active 09-03 00:00: 00 [facility] Dizziness Dizziness Disease Active 2017-02 00:00: 00 [facility] Obesity (BMI 30-39.9) Obesity (BMI 30-39.9) Disease Active 07-02 00:00: 00 [facility] Allergies, Adverse Reactions, Alerts Allergy Name Allergy Type Status Severity Reaction(s) Onset Date Inactive Date Treating Clinician Comments Source NO KNOWN ALLERGIE S Drug Class Active [facility] Social History Social Habit Start Date Stop Date Quantity Comments Source History of tobacco use Passive smoker [facility] History SDOH Alcohol Std Drinks [facility] History SDOH Alcohol Binge [facility] History SDOH Social Connections Get Together [facility] History SDOH Social Connections Jain [facility] History SDOH Social Connections Membership [facility] History SDOH Social Connections Meetings [facility] Alcoholic beverage intake 2023-12-13 00:00:00 2023-12-13 00:00:00 Ex-drinker (finding) [facility] Tobacco use and exposure 2023-11-19 00:00:00 2023-11-19 00:00:00 Smokeless tobacco non-user [facility] History of Social function 2023-10-11 00:00:00 2023-10-11 00:00:00 [facility] Alcohol intake 2022-10-24 00:00:00 2022-10-24 00:00:00 Ex-drinker (finding) [facility] Cigarettes smoked current (pack per day) - Reported 2022-07-15 00:00:00 2022-07-15 00:00:00 [facility] History SDOH Alcohol Frequency 2022-07-14 00:00:00 2022-07-14 00:00:00 1 [facility] History SDOH Social Connections Phone 2022-07-14 00:00:00 2022-07-14 00:00:00 5 [facility] History SDOH Social Connections Living 2022-07-14 00:00:00 2022-07-14 00:00:00 7 [facility] History SDOH Physical Activity DPW 2022-07-14 00:00:00 2022-07-14 00:00:00 3 [facility] History SDOH Physical Activity MPS 2022-07-14 00:00:00 2022-07-14 00:00:00 2 [facility] History SDOH Housing Unable to Pay 2022-07-14 00:00:00 2022-07-14 00:00:00 2 [facility] History SDOH Housing Places Lived 2022-07-14 00:00:00 2022-07-14 00:00:00 1 [facility] History SDOH Housing Homeless Last Year 2022-07-14 00:00:00 2022-07-14 00:00:00 2 [facility] History SDOH Financial 2022-07-14 00:00:00 2022-07-14 00:00:00 5 [facility] History SDOH Food Worry 2022-07-14 00:00:00 2022-07-14 00:00:00 1 [facility] History SDOH Food Scarcity 2022-07-14 00:00:00 2022-07-14 00:00:00 1 [facility] History SDOH Transport Med 2022-07-14 00:00:00 2022-07-14 00:00:00 2 [facility] History SDOH Transport Non-Med 2022-07-14 00:00:00 2022-07-14 00:00:00 2 [facility] Education 2022-07-13 00:00:00 2022-07-13 00:00:00 14 [facility] Exposure to SARS-CoV-2 (event) 2021-05-25 00:00:00 2021-06-04 11:38:00 Not sure [facility] Sex assigned at 1960 00:00:00 1960 00:00:00 [facility] Smoking Status Start Date Stop Date Source Ex-smoker 2023-11-19 00:00:00 2023-11-19 00:00:00 [facility] Occasional tobacco smoker 2023-10-11 00:00:00 [facility] Current every day smoker 2020-06-01 00:00:00 [facility] Medications Ordered Medication Name Filled Medication Name Start Date Stop Date Current Medication? Ordering Clinician Indication Dosage Frequency Signature (SIG) Comments Components Source HYDROcodone -acetaminop hen (NORCO 5) tablet 1 tablet 2023-02 14:30: 00 11-28 14:39 :00 No 1{tbl} 1 tablet, Oral, ONCE, 1 dose, On Leslee 11/29/23 at 0930, Routine, PACU [facility] FENTanyl (PF) (SUBLIMAZE) injection 25 mcg 2023-02 14:21: 19 11-28 17:45 :17 No 25ug 25 mcg, Slow IV Push, Q5MIN PRN, 4 doses, Starting on Leslee 11/29/23 at 0921, Until Leslee 11/29/23 at 1245, Routine, Pain Scale 4-6, PACU [facility] ondansetron (ZOFRAN (PF)) injection 4 mg 2023-02 14:21: 19 11-28 17:45 :17 No 4mg 4 mg, Slow IV Push, PRN, 1 dose, Starting on Leslee 11/29/23 at 0921, Until Leslee 11/29/23 at 1245, Routine, Nausea and Vomiting (N/V), PACU [facility] heparin 5,000 unit/mL 2,000 Units in NaCl 0.9% (NS) 500 mL OR irrigation 2023-02 13:16: 00 Yes PRN, Starting on Leslee 11/29/23 at 0816, Intra-op [facility] iohexoL (OMNIPAQUE 300-50 mL)) injection 2023-02 13:16: 00 11-28 14:10 :44 No PRN, Starting on Leslee 11/29/23 at 0816, Until Leslee 11/29/23 at 0910, Routine, Intra-op [facility] lidocaine 1% (PF) (XYLOCAINE) injection 2023-02 13:16: 00 11-28 14:10 :44 No PRN, Starting on Leslee 11/29/23 at 0816, Until Leslee 11/29/23 at 0910, Routine, Intra-op [facility] FENTanyl PF (SUBLIMAZE (PF)) injection 25 mcg 08-27 17:11: 52 08-27 20:26 :19 No 25ug 25 mcg, Slow IV Push, Q5MIN PRN, 4 doses, Starting on Sun08/28/23 at 1211, Until Sun08/28/23 at 1526, Routine, Pain (scale 7-10), PACU [facility] ondansetron (ZOFRAN (PF)) injection 4 mg 08-27 17:11: 52 08-27 20:26 :19 No 4mg 4 mg, Slow IV Push, PRN, 1 dose, Starting on Sun08/28/23 at 1211, Until Sun08/28/23 at 1526, Routine, Nausea and Vomiting (N/V), PACU [facility] heparin 10,000 units in NS 1000 mL for irrigation 08-27 14:47: 00 08-27 17:16 :56 No PRN, Starting on Sun08/28/23 at 0947, Until Sun08/28/23 at 1216, 500 mL, Intra-op [facility] NaCl 0.9% (NS) IV infusion 1,000 mL 08-27 12:30: 00 08-27 20:26 :19 No 1000mL at 42 mL/hr, IV Infusion, CONTINUOUS , Starting on Sun08/28/23 at 0730, Until Sun08/28/23 at 1526, Routine, CV Preprocedu re [facility] acetaminoph en (TYLENOL EXTRA STRENGTH) 500 mg tablet 08-27 00:00: 00 Yes [id number] 500mg Take 1 tablet by mouth every 6 (six) hours as needed for Pain. [facility] HYDROcodone -acetaminop hen 5-325 mg tablet 08-27 00:00: 00 09-04 04:59 :00 No [id number] 1{tbl} Take 1 tablet by mouth every 6 (six) hours as needed for Pain (scale 7-10) for up to 7 days. Indication s: acute pain [facility] cloNIDine 0.1 mg tablet 08-16 09:56: 04 Yes .2mg Take 2 tablets by mouth in the morning and 2 tablets in the evening. [facility] losartan 50 mg tablet 08-16 09:56: 04 Yes 50mg Take 1 tablet by mouth in the morning and 1 tablet in the evening. [facility] furosemide 40 mg tablet 08-16 09:56: 04 11-28 00:00 :00 No 40mg Take 1 tablet by mouth in the morning. [facility] folic acid/vit B complex and C (NEPHRO-VIT E ORAL) 08-16 09:56: 04 11-28 00:00 :00 No Take by mouth. [facility] doxazosin 2 mg tablet 10-28 00:00: 00 11-28 04:59 :00 No [id number] 2mg Take 1 tablet by mouth in the morning for 30 days. [facility] isosorbide mononitrate 60 mg 24 hr tablet 10-28 00:00: 00 11-28 04:59 :00 No [id number] 60mg Take 1 tablet by mouth in the morning for 30 days. [facility] doxazosin (CARDURA) tablet 2 mg 10-27 19:15: 00 Yes 2mg 2 mg, Oral, DAILY, First dose on Sun10/27/22 at 1415, Until Discontinu ed, Routine [facility] carvediloL (COREG) 12.5 mg tablet 10-27 18:47: 34 11-28 00:00 :00 No 12.5mg Take 1 tablet by mouth in the morning and 1 tablet in the evening. Take with meals. [facility] hydrALAZINE 100 mg tablet 10-27 18:47: 34 11-28 00:00 :00 No 100mg Take 1 tablet by mouth in the morning and 1 tablet at noon and 1 tablet in the evening. [facility] amLODIPine 10 mg tablet 10-27 18:47: 34 11-28 00:00 :00 No 10mg Take 1 tablet by mouth in the morning. [facility] NIFEdipine ER tablet 60 mg 10-27 13:00: 00 Yes 60mg 60 mg, Oral, BID, First dose (after last modificati on) on Sun10/27/22 at 0800, Until Discontinu ed, Routine [facility] NIFEdipine ER tablet 30 mg 10-27 02:15: 00 10-27 01:34 :00 No 30mg 30 mg, Oral, ONCE, 1 dose, On Sun10/26/22 at 2115, Routine [facility] NIFEdipine ER 60 mg tablet 10-27 00:00: 00 11-27 04:59 :00 No [id number] 60mg Take 1 tablet by mouth in the morning and 1 tablet in the evening. Do all this for 30 days. [facility] NIFEdipine ER tablet 30 mg 10-26 13:00: 00 10-27 01:13 :30 No 30mg 30 mg, Oral, BID, First dose on Sun10/26/22 at 0800, Until Discontinu ed, Routine [facility] carvediloL (COREG) tablet 12.5 mg 10-25 14:45: 00 Yes 12.5mg 12.5 mg, Oral, BID MEALS, First dose on 9/13/23 at 0945, Until Discontinu ed, Routine [facility] isosorbide mononitrate (IMDUR) 24 hr tablet 60 mg 10-25 14:00: 00 Yes 60mg 60 mg, Oral, DAILY, First dose (after last modificati on) on Sun10/25/22 at 0900, Until Discontinu ed, Routine [facility] sulfur hexafluorid e microsphr (LUMASON) injection 5 mL 10-25 13:29: 00 10-25 13:45 :00 No [id number] 5mL 5 mL, Intravenou s, ONCE, 1 dose, On Sun10/25/22 at 0829, Routine
membership advisor approving Restricted medication : CADEN HANNA [facility] heparin (porcine) injection 5,000 Units 10-25 01:00: 00 Yes 5000U 5,000 Units, Subcutaneo us, Q12H, First dose on Sun10/24/22 at 2000, Until Discontinu ed, Routine [facility] hydrALAZINE (APRESOLINE ) tablet 100 mg 10-24 20:00: 00 Yes 100mg 100 mg, Oral, TID, First dose on Sun10/24/22 at 1500, Until Discontinu ed, Routine [facility] aspirin chewable tablet 81 mg 10-24 20:00: 00 Yes 81mg 81 mg, Oral, DAILY, First dose on Sun10/24/22 at 1500, Until Discontinu ed, Routine [facility] isosorbide mononitrate (IMDUR) 24 hr tablet 30 mg 10-24 20:00: 00 10-25 00:35 :04 No 30mg 30 mg, Oral, DAILY, First dose on Sun10/24/22 at 1500, Until Discontinu ed, Routine [facility] amLODIPine (NORVASC) tablet 10 mg 10-24 20:00: 00 10-25 21:08 :19 No 10mg 10 mg, Oral, DAILY, First dose on Sun10/24/22 at 1500, Until Discontinu ed, Routine [facility] ondansetron (ZOFRAN (PF)) injection 4 mg 10-24 19:53: 55 Yes 4mg 4 mg, Slow IV Push, Q6HPRN, Starting on Sun10/24/22 at 1453, Until Discontinu ed, Routine, Nausea and Vomiting (N/V) [facility] acetaminoph en (TYLENOL) tablet 650 mg 10-24 19:53: 44 Yes 650mg 650 mg, Oral, Q6HPRN, Starting on Sun10/24/22 at 1453, Until Discontinu ed, Routine, Pain (scale 1-3), Temp > 38 C [facility] hydralAZINE (APRESOLINE ) injection 10 mg 10-24 19:50: 42 Yes 10mg 10 mg, Slow IV Push, Q4HPRN, Starting on Sun10/24/22 at 1450, Until Discontinu ed, Routine, DBP=>100; SBP=>180 [facility] hydralAZINE (APRESOLINE ) injection 10 mg 10-24 17:00: 00 10-24 17:02 :00 No 10mg 10 mg, Slow IV Push, ONCE, 1 dose, On Sun10/24/22 at 1200, IRVIN [facility] povidone-io dine 10 % solution 07-17 00:00: 00 10-27 00:00 :00 No [id number] Apply to area(s) daily. [facility] amLODIPine 10 mg tablet 07-17 00:00: 00 08-17 04:59 :00 No [id number] 10mg Take 1 tablet by mouth in the morning for 30 days. [facility] levoFLOXaci n (LEVAQUIN) tablet 500 mg 07-16 23:00: 00 07-24 22:59 :00 No 500mg 500 mg, Oral, Q48H, 4 doses, First dose on 07/16/22 at 1800, Last dose on 07/22/22 at 1800, Routine
Reason for Anti-Infec tive: Documented Infection< br>Documen radha Infection Site: Skin / Soft Tissue
Duration of Therapy: 10 days [facility] carvediloL 12.5 mg tablet 07-16 14:22: 08 07-16 00:00 :00 No 12.5mg Take 1 tablet by mouth in the morning and 1 tablet in the evening. Take with meals. [facility] carvediloL (COREG) tablet 12.5 mg 07-16 13:00: 00 Yes 12.5mg 12.5 mg, Oral, BID MEALS, First dose on 07/16/22 at 0800, Until Discontinu ed, Routine [facility] hydrALAZINE (APRESOLINE ) tablet 100 mg 07-16 01:00: 00 Yes 100mg 100 mg, Oral, TID, First dose (after last modificati on) on 07/15/22 at 2000, Until Discontinu ed, Routine [facility] carvediloL 12.5 mg tablet 07-16 00:00: 00 08-16 04:59 :00 No [id number] 12.5mg Take 1 tablet by mouth in the morning and 1 tablet in the evening. Take with meals. Do all this for 30 days. [facility] hydrALAZINE 100 mg tablet 07-16 00:00: 00 08-16 04:59 :00 No [id number] 100mg Take 1 tablet by mouth in the morning and 1 tablet at noon and 1 tablet in the evening. Do all this for 30 days. [facility] levoFLOXaci n 500 mg tablet 07-16 00:00: 00 07-25 04:59 :00 No [id number] 500mg Take 1 tablet by mouth every 48 (forty-eig ht) hours for 8 days. [facility] clindamycin 300 mg capsule 07-16 00:00: 00 07-24 04:59 :00 No [id number] 300mg Take 1 capsule by mouth 4 (four) times daily for 7 days. [facility] HYDROcodone -acetaminop hen 5-325 mg tablet 07-16 00:00: 00 07-24 04:59 :00 No [id number] 1{tbl} Take 1 tablet by mouth every 6 (six) hours as needed for Pain (scale 7-10) for up to 7 days. Indication s: acute pain [facility] HYDROcodone -acetaminop hen (NORCO 5) 5-325 mg tablet 1 tablet 07-15 19:30: 00 07-15 19:44 :00 No 1{tbl} 1 tablet, Oral, ONCE, 1 dose, On 07/15/22 at 1430, Routine, PACU [facility] lidocaine 1% (PF) (XYLOCAINE) injection 07-15 18:57: 00 07-15 19:13 :43 No PRN, Starting on 07/15/22 at 1357, Until 07/15/22 at 1413, Routine, Intra-op [facility] sodium chloride 0.9 % irrigation solution 07-15 18:52: 00 07-15 19:13 :43 No PRN, Starting on 07/15/22 at 1352, Until 07/15/22 at 1413, Intra-op [facility] povidone-io dine (BETADINE) 10 % solution 07-15 14:00: 00 Yes Topical, DAILY, First dose (after last modificati on) on 07/15/22 at 0900, Until Discontinu ed, Routine [facility] levoFLOXaci n in D5W (LEVAQUIN) 750 mg/150 mL Piggyback 750 mg 07-14 22:15: 00 07-15 00:20 :00 No 750mg 750 mg, IV Piggyback, at 100 mL/hr Administer over 90 Minutes, ONCE, 1 dose, On Sun07/14/22 at 1715, IRVIN
Re ason for Anti-Infec tive: Documented Infection< br>Documen radha Infection Site: Skin / Soft Tissue
Duration of Therapy: 7 days [facility] aspirin chewable tablet 81 mg 07-14 14:00: 00 Yes 81mg 81 mg, Oral, DAILY, First dose on Sun07/14/22 at 0900, Until Discontinu ed, Routine [facility] enoxaparin (LOVENOX) injection 30 mg 07-14 14:00: 00 Yes 30mg 30 mg, Subcutaneo us, DAILY, First dose on Sun07/14/22 at 0900, Until Discontinu ed, Routine [facility] hydrALAZINE (APRESOLINE ) tablet 50 mg 07-14 13:00: 00 07-15 23:05 :14 No 50mg 50 mg, Oral, TID, First dose (after last modificati on) on Sun07/14/22 at 0800, Until Discontinu ed, Routine [facility] cloNIDine (CATAPRES) tablet 0.1 mg 07-14 11:09: 31 Yes .1mg 0.1 mg, Oral, TIDPRN, Starting on Sun07/14/22 at 0609, Until Discontinu ed, Routine, For SBP > 160, DBP > 100 [facility] clindamycin in 5 % dextrose (CLEOCIN) [...] After Hours (for ADC, CLC, LCC ONLY) [facility] amLODIPine (NORVASC) tablet 10 mg 07-14 09:30: 00 Yes 10mg 10 mg, Oral, DAILY, First dose (after last modificati on) on Sun07/14/22 at 0430, Until Discontinu ed, Routine [facility] hydrALAZINE (APRESOLINE ) tablet 50 mg 07-14 03:30: 00 07-14 11:07 :50 No 50mg 50 mg, Oral, BID, First dose on Sun07/13/22 at 2230, Until Discontinu ed, Routine [facility] losartan (COZAAR) tablet 50 mg 07-14 03:30: 00 07-14 09:28 :03 No 50mg 50 mg, Oral, DAILY, First dose on Sun07/13/22 at 2230, Until Discontinu ed, Routine [facility] labetaloL (NORMODYNE) injection 10 mg 07-14 03:22: 41 Yes 10mg 10 mg, Slow IV Push, Q4HPRN, Starting on Sun07/13/22 at 2222, Until Discontinu ed, Routine, For SBP > 160, DBP > 100, HR > 60. Hold for SBP < 110, DBP < 60. HR < 60 [facility] hydralAZINE (APRESOLINE ) injection 10 mg 07-14 03:22: 26 Yes 10mg 10 mg, Slow IV Push, Q4HPRN, Starting on Sun07/13/22 at 222, Until Discontinu ed, Routine, DBP=>100; SBP=>160 [facility] hydralAZINE (APRESOLINE ) injection 10 mg 07-14 02:15: 00 07-14 02:23 :00 No 10mg 10 mg, Slow IV Push, ONCE, 1 dose, On Sun07/13/22 at 2114, IRVIN [facility] HYDROcodone -acetaminop hen (NORCO) 10-325 mg tablet 1 tablet 07-14 01:57: 07 Yes 1{tbl} 1 tablet, Oral, Q6HPRN, Starting on Sun07/13/22 at 2056, Until Discontinu ed, Routine, Pain (scale 7-10) [facility] acetaminoph en (TYLENOL) tablet 650 mg 07-14 01:56: 54 Yes 650mg 650 mg, Oral, Q6HPRN, Starting on Sun07/13/22 at 2056, Until Discontinu ed, Routine, Pain (scale 1-3) [facility] lactated ringers IV infusion 1,000 mL 07-14 00:30: 00 07-14 03:23 :46 No 1000mL at 150 mL/hr, 1,000 mL, IV Infusion, CONTINUOUS , Starting on Leslee 07/13/22 at 1930, Until Leslee 07/13/22 at 2223, IRVIN [facility] morpHINE (4 mg/mL) injection 4 mg 07-14 00:00: 00 07-13 23:50 :00 No 4mg 4 mg, Slow IV Push, ONCE, 1 dose, On Sun07/13/22 at 1900, STAT [facility] ampicillin- sulbactam (UNASYN) 3 g in NaCl 0.9% (NS) 100 mL MINI-BAG 07-13 23:30: 00 07-14 00:24 :00 No 3g 3 g, IV Piggyback, ONCE, 1 dose, On Sun07/13/22 at 1830, Administer over 30 Minutes, 100 mL
Reas on for Anti-Infec tive: Documented Infection< br>Documen radha Infection Site: Skin / Soft Tissue
Duration of Therapy: 7 days [facility] ondansetron (ZOFRAN (PF)) injection 4 mg 07-13 23:30: 00 07-13 23:48 :00 No 4mg 4 mg, Slow IV Push, ONCE, 1 dose, On Leslee 07/13/22 at 1830, IRVIN [facility] [facility] losartan 50 mg tablet 06-07 00:00: 00 07-16 00:00 :00 No [id number] 50mg Take 1 tablet by mouth daily. [facility] sulfur hexafluorid e microsphr (LUMASON) injection 5 mL 06-06 20:45: 00 06-06 20:45 :00 No [id number] 5mL 5 mL, Intravenou s, ONCE, 1 dose, On Sun06/06/21 at 1545, Routine
membership advisor approving Restricted medication : CADEN HANNA [facility] amLODIPine 10 mg tablet 06-06 00:00: 00 07-16 00:00 :00 No [id number] 10mg Take 1 tablet by mouth daily. [facility] hydrALAZINE 50 mg tablet 06-06 00:00: 00 07-16 00:00 :00 No [id number] 50mg Take 1 tablet by mouth 2 (two) times daily. [facility] aspirin chewable tablet 81 mg 06-05 14:00: 00 Yes 81mg 81 mg, Oral, DAILY, First dose on 06/05/21 at 0900, Until Discontinu ed, Routine [facility] hydrALAZINE (APRESOLINE ) tablet 50 mg 06-05 13:45: 00 Yes 50mg 50 mg, Oral, BID, First dose on 06/05/21 at 0845, Until Discontinu ed, Routine [facility] hydralAZINE (APRESOLINE ) injection 20 mg 06-05 13:09: 23 Yes 20mg 20 mg, Slow IV Push, Q4HPRN, Starting on 06/05/21 at 0809, Until Discontinu ed, STAT, DBP=>100; SBP=>180 [facility] niCARdipine (CARDENE I.V.) 40 mg in NaCL 200 mL (RTU) infusion 06-04 19:20: 57 06-05 13:11 :17 No 2.5mg/h 2.5-15 mg/hr (12.5-75 mL/hr), IV Infusion, TITRATE, SBP Goal < 180 mmHg, Starting on 06/04/21 at 1420 [facility] amLODIPine (NORVASC) tablet 10 mg 06-04 18:30: 00 Yes 10mg 10 mg, Oral, DAILY, First dose on 06/04/21 at 1330, Until Discontinu ed, Routine [facility] losartan (COZAAR) tablet 50 mg 06-04 18:30: 00 Yes 50mg 50 mg, Oral, DAILY, First dose on 06/04/21 at 1330, Until Discontinu ed, Routine [facility] hydralAZINE (APRESOLINE ) injection 10 mg 06-04 18:00: 00 06-04 16:54 :00 No 10mg 10 mg, Slow IV Push, ONCE, 1 dose, On 06/04/21 at 1300, IRVIN [facility] hydrALAZINE 100 mg tablet 07-08 00:00: 00 08-08 04:59 :00 No [id number] 100mg Take 1 tablet by mouth every 8 (eight) hours for 30 days. [facility] furosemide 40 mg tablet 07-08 00:00: 00 08-08 04:59 :00 No [id number] 40mg Take 1 tablet by mouth every morning for 30 days. [facility] atorvastati n 40 mg tablet 07-08 00:00: 00 08-08 04:59 :00 No [id number] 40mg Take 1 tablet by mouth at bedtime for 30 days. [facility] carvediloL 12.5 mg tablet 07-08 00:00: 00 08-08 04:59 :00 No [id number] 12.5mg Take 1 tablet by mouth 2 (two) times daily with meals for 30 days. [facility] meclizine 12.5 mg tablet 06-10 00:00: 00 11-28 00:00 :00 No [id number] 12.5mg Take 1 tablet by mouth 3 (three) times daily as needed for Dizziness. [facility] aspirin 81 mg chewable tablet 06-10 00:00: 00 11-28 00:00 :00 No [id number] 81mg Take 1 tablet by mouth daily. [facility] amLODIPine 10 mg tablet 06-10 00:00: 00 06-06 00:00 :00 No [id number] 10mg Take 1 tablet by mouth daily. [facility] furosemide 40 mg tablet 06-04 00:00: 00 07-05 04:59 :00 No [id number] 40mg Take 1 tablet by mouth daily for 30 days. [facility] carvediloL (COREG) tablet 12.5 mg 06-03 22:00: 00 Yes 12.5mg 12.5 mg, Oral, BID MEALS, First dose (after last modificati on) on Sun06/03/20 at 1700, Until Discontinu ed, Routine [facility] hydrALAZINE (APRESOLINE ) tablet 100 mg 06-03 12:00: 00 Yes 100mg 100 mg, Oral, Q8H, First dose (after last modificati on) on Sun06/03/20 at 0700, Until Discontinu ed, Routine [facility] melatonin (MELATIN) tablet 3 mg 06-03 02:30: 00 Yes 3mg 3 mg, Oral, QHS, First dose on Sun06/02/20 at 2130, Until Discontinu ed, Routine [facility] hydrALAZINE 50 mg tablet 06-03 00:00: 00 07-04 04:59 :00 No [id number] 100mg Take 2 tablets by mouth every 8 (eight) hours for 30 days. [facility] atorvastati n 40 mg tablet 06-03 00:00: 00 07-04 04:59 :00 No [id number] 40mg Take 1 tablet by mouth every evening for 30 days. [facility] carvediloL 12.5 mg tablet 06-03 00:00: 00 07-04 04:59 :00 No [id number] 12.5mg Take 1 tablet by mouth 2 (two) times daily with meals for 30 days. [facility] carvediloL (COREG) tablet 6.25 mg 06-02 22:00: 00 06-03 17:25 :28 No 6.25mg 6.25 mg, Oral, BID MEALS, First dose on Sun06/02/20 at 1700, Until Discontinu ed, Routine [facility] furosemide (LASIX) tablet 40 mg 06-02 15:45: 00 Yes 40mg 40 mg, Oral, DAILY, First dose on Sun06/02/20 at 1045, Until Discontinu ed, Routine [facility] amLODIPine (NORVASC) tablet 10 mg 06-02 14:00: 00 Yes 10mg 10 mg, Oral, DAILY, First dose (after last modificati on) on Sun06/02/20 at 0900, Until Discontinu ed, Routine [facility] aspirin chewable tablet 81 mg 06-02 14:00: 00 Yes 81mg 81 mg, Oral, DAILY, First dose on Sun06/02/20 at 0900, Until Discontinu ed, Routine [facility] hydrALAZINE (APRESOLINE ) tablet 50 mg 06-02 14:00: 00 06-03 11:42 :18 No 50mg 50 mg, Oral, Q8H, First dose (after last modificati on) on Sun06/02/20 at 0900, Until Discontinu ed, Routine [facility] magnesium sulfate in water 2 gram/50 mL (4 %) infusion 2 g 06-02 13:00: 00 06-02 15:57 :00 No 2g 2 g, IV Piggyback, ONCE, 1 dose, Sun06/02/20 at 0800, Routine [facility] Potassium Bicarb-Citr ic Acid (EFFER-K) effervescen t tablet 40 mEq 06-02 12:00: 00 Yes 40meq 40 mEq, Oral, DAILY, First dose on Sun06/02/20 at 0700, Until Discontinu ed, Routine [facility] atorvastati n (LIPITOR) tablet 40 mg 06-01 22:00: 00 Yes 40mg 40 mg, Oral, QPM, First dose on Sun06/01/20 at 1700, Until Discontinu ed, Routine [facility] isosorbide mononitrate (IMDUR) 24 hr tablet 30 mg 06-01 21:45: 00 06-03 17:27 :14 No 30mg 30 mg, Oral, DAILY, First dose on Sun06/01/20 at 1645, Until Discontinu ed, Routine [facility] amLODIPine (NORVASC) tablet 5 mg 06-01 21:45: 00 06-02 12:04 :42 No 5mg 5 mg, Oral, DAILY, First dose (after last modificati on) on Sun06/01/20 at 1645, Until Discontinu ed, Routine [facility] nitroglycer in (NITROSTAT) sublingual tablet 0.4 mg 06-01 21:28: 04 Yes .4mg 0.4 mg, Sublingual , Q5MIN PRN, Starting Sun06/01/20 at 1628, Until Discontinu ed, Routine, Chest pain [facility] ondansetron (ZOFRAN (PF)) injection 4 mg 06-01 21:27: 53 Yes 4mg 4 mg, Slow IV Push, Q6HPRN, Starting Sun06/01/20 at 1627, Until Discontinu ed, Routine, Nausea and Vomiting (N/V) [facility] heparin 25,000 Units/250 mL (Premixed Bag) in [...] Rang e, Dosing and Testing: &nbs p;FOR [facility], [facility], AND [facility] C[facility]ES ONLY &nbs p; - aPTT < [...] ADJUST INITIAL BOLUS OR INITIAL INFUSION RATE.
[facility] nitroglycer in 50 mg in D5W [...] at maximum allowed dose, contact prescriber .
[facility] HEPARIN SODIUM (PORCINE) 1,000 UNIT/ML BOLUS ACS ORDER SET 06-01 18:45: 00 06-01 18:59 :00 No 4000U 4,000 Units, IV Push, ONCE, 1 dose, 06/01/20 at 1345, [facility] furosemide (LASIX) injection 40 mg 06-01 18:30: 00 06-01 17:55 :00 No 40mg 40 mg, IV Push, ONCE, 1 dose, 06/01/20 at 1330, [facility] nitroglycer in (NITROSTAT) sublingual tablet 0.4 mg 06-01 18:30: 00 06-01 17:55 :00 No .4mg 0.4 mg, Sublingual , ONCE, 1 dose, 06/01/20 at 1330, [facility] hydrALAZINE 100 mg tablet 10-01 00:00: 00 11-01 04:59 :00 No [id number] 100mg Take 1 tablet by mouth every 6 (six) hours for 30 days. [facility] cloNIDine (CATAPRES) 0.1 mg tablet 10-01 00:00: 00 11-01 04:59 :00 No [id number] .1mg Take 1 tablet by mouth 2 (two) times daily for 30 days. [facility] NIFEdipine ER (AFEDITAB CR) tablet 60 mg 09-06 01:00: 00 Yes 60mg 60 mg, Oral, BID, First dose on Sun09/06/19 at 2000, Until Discontinu ed, Routine [facility] amLODIPine 10 mg tablet 09-05 00:00: 00 Yes [id number] 10mg Take 1 tablet by mouth daily. [facility] lisinopril 5 mg tablet 09-05 00:00: 00 06-03 00:00 :00 No [id number] 5mg Take 1 tablet by mouth daily. [facility] hydrALAZINE 100 mg tablet 09-05 00:00: 10-01 00:00 :00 No [id number] 100mg Take 1 tablet by mouth every 8 (eight) hours. [facility] NaCl 0.9% (NS) IV infusion 1,000 mL 09-04 19:45: 00 Yes 1000mL at 50 mL/hr, IV Infusion, CONTINUOUS , Starting Sun09/05/19 at 1445, Until Discontinu ed, Routine [facility] cloNIDine (CATAPRES) tablet 0.2 mg 09-04 18:30: 00 09-04 17:48 :00 No .2mg 0.2 mg, Oral, ONCE, 1 dose, Sun09/05/19 at 1330, STAT [facility] aspirin chewable tablet 81 mg 09-04 14:00: 00 Yes 81mg 81 mg, Oral, DAILY, First dose on Sun09/05/19 at 0900, Until Discontinu ed, Routine [facility] amLODIPine (NORVASC) tablet 10 mg 09-04 14:00: 00 09-05 17:38 :51 No 10mg 10 mg, Oral, DAILY, First dose on Sun09/05/19 at 0900, Until Discontinu ed, Routine [facility] KCL (KLOR-CON M20) tablet 20 mEq 09-04 14:00: 00 09-04 13:19 :00 No 20meq 20 mEq, Oral, DAILY, 1 dose, First dose on Sun09/05/19 at 0900, Routine [facility] zinc sulfate (ORAZINC) capsule 220 mg 09-04 13:00: 00 Yes 220mg 220 mg, Oral, BID, First dose on Sun09/05/19 at 0800, Until Discontinu ed, Routine [facility] ascorbic acid (vitamin C) (VITAMIN C) tablet 500 mg 09-04 13:00: 00 Yes 500mg 500 mg, Oral, BID, First dose on Sun09/05/19 at 0800, Until Discontinu ed, Routine [facility] heparin 25,000 unit/250 mL (Premixed Bag) in [...] c levels are reached.<b r> [facility] heparin 1000 unit/mL injection Soln 4,000 Units 09-04 03:45: 00 09-04 05:04 :00 No 4000U 4,000 Units, IV Push, ONCE, 1 dose, Leslee 09/04/19 at 2245, Routine [facility] hydrALAZINE (APRESOLINE ) tablet 100 mg 09-04 03:00: 00 Yes 100mg 100 mg, Oral, Q8H, First dose on Sun09/04/19 at 2200, Until Discontinu ed, Routine [facility] heparin (porcine) injection 5,000 Units 09-04 01:00: 00 09-04 03:34 :57 No 5000U 5,000 Units, Subcutaneo us, Q12H, First dose on Sun09/04/19 at 2000, Until Discontinu ed, Routine [facility] NaCl 0.9% (NS) IV infusion 1,000 mL 09-04 00:15: 00 09-04 19:38 :04 No 1000mL at 100 mL/hr, IV Infusion, CONTINUOUS , Starting Sun09/04/19 at 1915, Until Sun09/05/19 at 1438, Routine [facility] cloNIDine (CATAPRES) tablet 0.1 mg 09-03 23:15: 00 09-03 22:14 :00 No .1mg 0.1 mg, Oral, ONCE, 1 dose, Sun09/04/19 at 1815, STAT [facility] nitroglycer in (NITROSTAT) sublingual tablet 0.4 mg 09-03 22:51: 25 Yes .4mg 0.4 mg, Sublingual , Q5MIN PRN, Starting Leslee 09/04/19 at 1751, Until Discontinu ed, Routine, Chest pain [facility] ondansetron (ZOFRAN (PF)) injection 4 mg 09-03 22:51: 02 Yes 4mg 4 mg, Slow IV Push, Q6HPRN, Starting Leslee 09/04/19 at 1751, Until Discontinu ed, Routine, Nausea and Vomiting (N/V) [facility] HYDROcodone -acetaminop hen (NORCO) 10-325 mg tablet 1 tablet 09-03 22:50: 57 Yes 1{tbl} 1 tablet, Oral, Q6HPRN, Starting Leslee 09/04/19 at 1750, Until Discontinu ed, Routine, Pain (scale 7-10) [facility] traMADol (ULTRAM) tablet 50 mg 09-03 22:50: 49 09-05 22:49 :49 No 50mg 50 mg, Oral, Q8HPRN, Starting Leslee 09/04/19 at 1750, Until 09/06/19 at 1749, Routine, Pain (scale 4-6) [facility] acetaminoph en (TYLENOL) tablet 650 mg 09-03 22:50: 40 Yes 650mg 650 mg, Oral, Q6HPRN, Starting Leslee 09/04/19 at 1750, Until Discontinu ed, Routine, Pain (scale 1-3) [facility] iohexol (OMNIPAQUE 350 BULK-50 mL) injection 50 mL 09-03 21:30: 00 09-03 21:30 :00 No 50mL 50 mL, Intravenou s, ONCE, 1 dose, [facility] 09/04/19 at 1630, Routine [facility] aspirin 81 mg chewable tablet 2017-02 00:00: 00 Yes 81mg Take 1 tablet by mouth daily. [facility] amLODIPine 10 mg tablet 2017-02 00:00: 00 09-05 00:00 :00 No 10mg Take 1 tablet by mouth daily. [facility] meclizine 12.5 mg tablet 2017-02 00:00: 00 Yes 12.5mg Take 1 tablet by mouth 3 (three) times daily as needed for Dizziness. [facility] lisinopril 5 mg tablet 2017-02 00:00: 00 09-05 00:00 :00 No 5mg Take 1 tablet by mouth daily. [facility] hydralAZINE 100 mg tablet 2017-02 00:00: 00 09-05 00:00 :00 No 100mg Take 1 tablet by mouth every 8 (eight) hours. [facility] Immunizations Ordered Immunization Name Filled Immunization Name Date Status Comments Source TD Pres-Free 2022-07-14 00:00:00 Completed [facility] TD Pres-Free 2022-07-14 00:00:00 Completed [facility] TD Pres-Free 2022-07-14 00:00:00 Completed [facility] TD Pres-Free 2022-07-14 00:00:00 Completed [facility] TD Pres-Free 2022-07-14 00:00:00 Completed [facility] TD Pres-Free 2022-07-14 00:00:00 Completed [facility] TD Pres-Free 2022-07-14 00:00:00 Completed [facility] TD Pres-Free 2022-07-14 00:00:00 Completed [facility] SARS-COV-2 COVID-19 PFIZER VACCINE 2020-07-05 00:00:00 Completed [facility] SARS-COV-2 COVID-19 PFIZER VACCINE 2020-07-05 00:00:00 Completed [facility] SARS-COV-2 COVID-19 PFIZER VACCINE 2020-07-05 00:00:00 Completed [facility] SARS-COV-2 COVID-19 PFIZER VACCINE 2020-07-05 00:00:00 Completed [facility] SARS-COV-2 COVID-19 PFIZER VACCINE 2020-07-05 00:00:00 Completed [facility] SARS-COV-2 COVID-19 PFIZER VACCINE 2020-07-05 00:00:00 Completed [facility] SARS-COV-2 COVID-19 PFIZER VACCINE 2020-07-05 00:00:00 Completed [facility] SARS-COV-2 COVID-19 PFIZER VACCINE 2020-07-05 00:00:00 Completed [facility] SARS-COV-2 COVID-19 PFIZER VACCINE 2020-07-05 00:00:00 Completed [facility] SARS-COV-2 COVID-19 PFIZER VACCINE 2020-07-05 00:00:00 Completed [facility] SARS-COV-2 COVID-19 PFIZER VACCINE 2020-07-05 00:00:00 Completed [facility] SARS-COV-2 COVID-19 PFIZER VACCINE 2020-07-05 00:00:00 Completed [facility] SARS-COV-2 COVID-19 PFIZER VACCINE 2020-06-05 00:00:00 Completed [facility] SARS-COV-2 COVID-19 PFIZER VACCINE 2020-06-05 00:00:00 Completed [facility] SARS-COV-2 COVID-19 PFIZER VACCINE 2020-06-05 00:00:00 Completed [facility] SARS-COV-2 COVID-19 PFIZER VACCINE 2020-06-05 00:00:00 Completed [facility] SARS-COV-2 COVID-19 PFIZER VACCINE 2020-06-05 00:00:00 Completed [facility] SARS-COV-2 COVID-19 PFIZER VACCINE 2020-06-05 00:00:00 Completed [facility] SARS-COV-2 COVID-19 PFIZER VACCINE 2020-06-05 00:00:00 Completed [facility] SARS-COV-2 COVID-19 PFIZER VACCINE 2020-06-05 00:00:00 Completed [facility] SARS-COV-2 COVID-19 PFIZER VACCINE 2020-06-05 00:00:00 Completed [facility] SARS-COV-2 COVID-19 PFIZER VACCINE 2020-06-05 00:00:00 Completed [facility] SARS-COV-2 COVID-19 PFIZER VACCINE 2020-06-05 00:00:00 Completed [facility] SARS-COV-2 COVID-19 PFIZER VACCINE 2020-06-05 00:00:00 Completed [facility] SARS-COV-2 COVID-19 PFIZER VACCINE 2020-06-05 00:00:00 Completed [facility] SARS-COV-2 COVID-19 PFIZER VACCINE Unknown Completed [facility] TD Pres-Free Unknown Completed [facility] SARS-COV-2 COVID-19 PFIZER VACCINE Unknown Completed [facility] TD Pres-Free Unknown Completed [facility] SARS-COV-2 COVID-19 PFIZER VACCINE Unknown Completed [facility] TD Pres-Free Unknown Completed [facility] SARS-COV-2 COVID-19 PFIZER VACCINE Unknown Completed [facility] TD Pres-Free Unknown Completed [facility] SARS-COV-2 COVID-19 PFIZER VACCINE Unknown Completed [facility] TD Pres-Free Unknown Completed [facility] SARS-COV-2 COVID-19 PFIZER VACCINE Unknown Completed [facility] TD Pres-Free Unknown Completed [facility] SARS-COV-2 COVID-19 PFIZER VACCINE Unknown Completed [facility] TD Pres-Free Unknown Completed [facility] SARS-COV-2 COVID-19 PFIZER VACCINE Unknown Completed [facility] TD Pres-Free Unknown Completed [facility] SARS-COV-2 COVID-19 PFIZER VACCINE Unknown Completed [facility] TD Pres-Free Unknown Completed [facility] SARS-COV-2 COVID-19 PFIZER VACCINE Unknown Completed [facility] TD Pres-Free Unknown Completed [facility] SARS-COV-2 COVID-19 PFIZER VACCINE Unknown Completed [facility] TD Pres-Free Unknown Completed [facility] SARS-COV-2 COVID-19 PFIZER VACCINE Unknown Completed [facility] TD Pres-Free Unknown Completed [facility] Vital Signs Vital Name Observation Time Observation Value Comments S ource Systolic blood pressure 2023-12-13 19:40:00 185 mm[Hg] [facility] Diastolic blood pressure 2023-12-13 19:40:00 100 mm[Hg] [facility] Heart rate 2023-12-13 19:40:00 62 /min [facility] Body temperature 2023-12-13 19:39:00 37.11 Nae [facility] Respiratory rate 2023-12-13 19:39:00 20 /min [facility] Body weight 2023-12-13 19:39:00 109.77 kg [facility] BMI 2023-12-13 19:39:00 33.75 kg/m2 [facility] Oxygen saturation in Arterial blood by Pulse oximetry 2023-12-13 19:39:00 95 /min [facility] Respiratory rate 2023-11-29 14:54:00 15 /min [facility] Heart rate 2023-11-29 14:53:00 54 /min [facility] Oxygen saturation in Arterial blood by Pulse oximetry 2023-11-29 14:53:00 97 /min [facility] Systolic blood pressure 2023-11-29 14:51:00 155 mm[Hg] [facility] Diastolic blood pressure 2023-11-29 14:51:00 93 mm[Hg] [facility] Body temperature 2023-11-29 14:51:00 36.67 Nae [facility] Body height 2023-11-29 11:53:00 180.3 cm [facility] Body weight 2023-11-29 11:53:00 107.956 kg [facility] BMI 2023-11-29 11:53:00 33.19 kg/m2 [facility] Systolic blood pressure 2023-11-29 11:53:00 165 mm[Hg] [facility] Diastolic blood pressure 2023-11-29 11:53:00 89 mm[Hg] [facility] Body height 2023-11-29 11:53:00 180.3 cm [facility] Body weight 2023-11-29 11:53:00 107.956 kg [facility] BMI 2023-11-29 11:53:00 33.19 kg/m2 [facility] Heart rate 2023-11-29 11:27:00 50 /min [facility] Body temperature 2023-11-29 11:27:00 36.72 Nae [facility] Respiratory rate 2023-11-29 11:27:00 21 /min [facility] Oxygen saturation in Arterial blood by Pulse oximetry 2023-11-29 11:27:00 98 /min [facility] Systolic blood pressure 2023-11-15 21:33:00 159 mm[Hg] [facility] Diastolic blood pressure 2023-11-15 21:33:00 88 mm[Hg] [facility] Heart rate 2023-11-15 21:33:00 86 /min [facility] Oxygen saturation in Arterial blood by Pulse oximetry 2023-11-15 21:33:00 97 /min [facility] Body temperature 2023-11-15 21:32:00 37.06 Nae [facility] Respiratory rate 2023-11-15 21:32:00 20 /min [facility] Body height 2023-11-15 21:32:00 180.3 cm [facility] Body weight 2023-11-15 21:32:00 107.956 kg [facility] BMI 2023-11-15 21:32:00 33.19 kg/m2 [facility] Systolic blood pressure 2023-11-01 18:57:00 147 mm[Hg] [facility] Diastolic blood pressure 2023-11-01 18:57:00 93 mm[Hg] [facility] Heart rate 2023-11-01 18:57:00 67 /min [facility] Body temperature 2023-11-01 18:54:00 37.33 Nae [facility] Respiratory rate 2023-11-01 18:54:00 20 /min [facility] Body height 2023-11-01 18:54:00 180.3 cm [facility] Body weight 2023-11-01 18:54:00 112.038 kg [facility] BMI 2023-11-01 18:54:00 34.45 kg/m2 [facility] Oxygen saturation in Arterial blood by Pulse oximetry 2023-11-01 18:54:00 98 /min [facility] Systolic blood pressure 2023-10-11 18:44:00 158 mm[Hg] [facility] Diastolic blood pressure 2023-10-11 18:44:00 89 mm[Hg] [facility] Heart rate 2023-10-11 18:44:00 55 /min [facility] Oxygen saturation in Arterial blood by Pulse oximetry 2023-10-11 18:44:00 99 /min [facility] Body temperature 2023-10-11 18:42:00 36.61 Nae [facility] Respiratory rate 2023-10-11 18:42:00 20 /min [facility] Body weight 2023-10-11 18:42:00 107.502 kg [facility] BMI 2023-10-11 18:42:00 33.05 kg/m2 [facility] Systolic blood pressure 2023-09-13 21:36:00 146 mm[Hg] [facility] Diastolic blood pressure 2023-09-13 21:36:00 85 mm[Hg] [facility] Heart rate 2023-09-13 21:31:00 61 /min [facility] Body temperature 2023-09-13 21:31:00 36.72 Nae [facility] Respiratory rate 2023-09-13 21:31:00 20 /min [facility] Body height 2023-09-13 21:31:00 180.3 cm [facility] Body weight 2023-09-13 21:31:00 107.502 kg [facility] BMI 2023-09-13 21:31:00 33.05 kg/m2 [facility] Oxygen saturation in Arterial blood by Pulse oximetry 2023-09-13 21:31:00 96 /min [facility] Systolic blood pressure 2023-08-28 18:15:00 148 mm[Hg] [facility] Diastolic blood pressure 2023-08-28 18:15:00 82 mm[Hg] [facility] Heart rate 2023-08-28 18:15:00 65 /min [facility] Oxygen saturation in Arterial blood by Pulse oximetry 2023-08-28 18:15:00 97 /min [facility] Respiratory rate 2023-08-28 17:26:00 17 /min [facility] Body temperature 2023-08-28 17:16:00 36.22 Nae [facility] Body height 2023-08-28 12:35:00 180.3 cm [facility] Body weight 2023-08-28 12:35:00 110 kg [facility] BMI 2023-08-28 12:35:00 33.82 kg/m2 [facility] Systolic blood pressure 2023-08-28 12:35:00 166 mm[Hg] [facility] Diastolic blood pressure 2023-08-28 12:35:00 99 mm[Hg] [facility] Heart rate 2023-08-28 12:35:00 59 /min [facility] Body temperature 2023-08-28 12:35:00 36.39 Nae [facility] Respiratory rate 2023-08-28 12:35:00 19 /min [facility] Body height 2023-08-28 12:35:00 180.3 cm [facility] Body weight 2023-08-28 12:35:00 110 kg [facility] BMI 2023-08-28 12:35:00 33.82 kg/m2 [facility] Oxygen saturation in Arterial blood by Pulse oximetry 2023-08-28 12:35:00 99 /min [facility] Systolic blood pressure 2023-03-11 01:00:00 152 mm[Hg] [facility] Diastolic blood pressure 2023-03-11 01:00:00 77 mm[Hg] [facility] Heart rate 2023-03-11 01:00:00 57 /min [facility] Respiratory rate 2023-03-11 01:00:00 18 /min [facility] Oxygen saturation in Arterial blood by Pulse oximetry 2023-03-11 01:00:00 98 /min [facility] Body temperature 2023-03-10 21:50:00 37.11 Nae [facility] Body height 2023-03-10 21:50:00 180.3 cm [facility] Body weight 2023-03-10 21:50:00 102.059 kg [facility] BMI 2023-03-10 21:50:00 31.38 kg/m2 [facility] Systolic blood pressure 2022-10-27 22:27:00 162 mm[Hg] [facility] Diastolic blood pressure 2022-10-27 22:27:00 84 mm[Hg] [facility] Heart rate 2022-10-27 22:27:00 81 /min [facility] Oxygen saturation in Arterial blood by Pulse oximetry 2022-10-27 22:27:00 96 /min [facility] Body temperature 2022-10-27 20:40:00 37.39 Nae [facility] Respiratory rate 2022-10-27 20:40:00 18 /min [facility] Body weight 2022-10-27 08:24:00 104.463 kg [facility] BMI 2022-10-27 08:24:00 32.12 kg/m2 [facility] Body height 2022-10-24 18:20:00 180.3 cm [facility] Systolic blood pressure 2022-07-16 16:01:00 168 mm[Hg] [facility] Diastolic blood pressure 2022-07-16 16:01:00 98 mm[Hg] [facility] Heart rate 2022-07-16 16:01:00 56 /min [facility] Body temperature 2022-07-16 16:01:00 36.06 Nae [facility] Respiratory rate 2022-07-16 16:01:00 18 /min [facility] Oxygen saturation in Arterial blood by Pulse oximetry 2022-07-16 16:01:00 97 /min [facility] Body weight 2022-07-16 08:16:00 101.47 kg [facility] BMI 2022-07-16 08:16:00 31.20 kg/m2 [facility] Body height 2022-07-13 22:57:00 180.3 cm [facility] Systolic blood pressure 2022-07-15 19:44:00 156 mm[Hg] [facility] Diastolic blood pressure 2022-07-15 19:44:00 74 mm[Hg] [facility] Heart rate 2022-07-15 19:44:00 56 /min [facility] Respiratory rate 2022-07-15 19:44:00 18 /min [facility] Oxygen saturation in Arterial blood by Pulse oximetry 2022-07-15 19:44:00 97 /min [facility] Body temperature 2022-07-15 16:34:00 36 Nae [facility] Body weight 2022-07-15 05:33:00 101.969 kg [facility] BMI 2022-07-15 05:33:00 31.20 kg/m2 [facility] Body height 2022-07-13 22:57:00 180.3 cm [facility] Systolic blood pressure 2021-06-06 20:29:00 184 mm[Hg] [facility] Diastolic blood pressure 2021-06-06 20:29:00 102 mm[Hg] [facility] Heart rate 2021-06-06 20:29:00 78 /min [facility] Body height 2021-06-06 20:29:00 180.3 cm [facility] Body weight 2021-06-06 20:29:00 112.492 kg [facility] BMI 2021-06-06 20:29:00 34.59 kg/m2 [facility] Body temperature 2021-06-06 17:00:00 36.61 Nae [facility] Oxygen saturation in Arterial blood by Pulse oximetry 2021-06-06 17:00:00 97 /min [facility] Respiratory rate 2021-06-06 13:00:00 24 /min [facility] Heart rate 2020-07-08 17:57:00 64 /min [facility] Oxygen saturation in Arterial blood by Pulse oximetry 2020-07-08 17:57:00 97 /min [facility] Systolic blood pressure 2020-07-08 17:56:00 229 mm[Hg] [facility] Diastolic blood pressure 2020-07-08 17:56:00 121 mm[Hg] [facility] Body temperature 2020-07-08 17:56:00 36.61 Nae [facility] Respiratory rate 2020-07-08 17:56:00 18 /min [facility] Body height 2020-07-08 17:56:00 180.3 cm [facility] Body weight 2020-07-08 17:56:00 108.863 kg [facility] BMI 2020-07-08 17:56:00 33.47 kg/m2 [facility] Systolic blood pressure 2020-06-03 20:10:00 132 mm[Hg] [facility] Diastolic blood pressure 2020-06-03 20:10:00 83 mm[Hg] [facility] Heart rate 2020-06-03 20:10:00 76 /min [facility] Body temperature 2020-06-03 20:10:00 36.72 Nae [facility] Respiratory rate 2020-06-03 20:10:00 20 /min [facility] Oxygen saturation in Arterial blood by Pulse oximetry 2020-06-03 20:10:00 97 /min [facility] Body weight 2020-06-03 00:43:00 112.129 kg [facility] BMI 2020-06-03 00:43:00 34.48 kg/m2 [facility] Body height 2020-06-01 22:23:00 180.3 cm [facility] Systolic blood pressure 2019-10-02 17:01:00 190 mm[Hg] [facility] Diastolic blood pressure 2019-10-02 17:01:00 97 mm[Hg] [facility] Heart rate 2019-10-02 17:01:00 65 /min [facility] Respiratory rate 2019-10-02 16:58:00 19 /min [facility] Body height 2019-10-02 16:58:00 180.3 cm [facility] Body weight 2019-10-02 16:58:00 114.306 kg [facility] BMI 2019-10-02 16:58:00 35.15 kg/m2 [facility] Oxygen saturation in Arterial blood by Pulse oximetry 2019-10-02 16:58:00 98 /min [facility] Systolic blood pressure 2019-10-02 17:01:00 190 mm[Hg] [facility] Diastolic blood pressure 2019-10-02 17:01:00 97 mm[Hg] [facility] Heart rate 2019-10-02 17:01:00 65 /min [facility] Respiratory rate 2019-10-02 16:58:00 19 /min [facility] Body height 2019-10-02 16:58:00 180.3 cm [facility] Body weight 2019-10-02 16:58:00 114.306 kg [facility] BMI 2019-10-02 16:58:00 35.15 kg/m2 [facility] Oxygen saturation in Arterial blood by Pulse oximetry 2019-10-02 16:58:00 98 /min [facility] Systolic blood pressure 2019-09-06 17:35:00 171 mm[Hg] [facility] Diastolic blood pressure 2019-09-06 17:35:00 86 mm[Hg] [facility] Heart rate 2019-09-06 17:35:00 64 /min [facility] Body temperature 2019-09-06 17:35:00 36.61 Nae [facility] Respiratory rate 2019-09-06 17:35:00 17 /min [facility] Oxygen saturation in Arterial blood by Pulse oximetry 2019-09-06 17:35:00 96 /min [facility] Body weight 2019-09-06 08:00:00 116.484 kg [facility] BMI 2019-09-06 08:00:00 34.83 kg/m2 [facility] Body height 2019-09-04 19:08:00 182.9 cm [facility] Procedures Procedure Date / Time Performed Performing Clinician Source [place] TIME OR (NON-REPORTABLE) 2023-11-29 14:10:00 Real Robert [facility] [address] - [place] INTRO CATH DIALYSIS CIRCUIT W/TRLUML BALO ANGIOP 2023-11-29 12:37:00 Real Robert [facility] POTASSIUM SERUM 2023-11-29 11:38:00 [facility] POTASSIUM SERUM 2023-11-29 11:38:00 Griffin [facility]vez [facility] [address] - [place] CRTJ ARVEN FSTL XCP DIR LAURE ANAST AUTOG GRF 2023-08-28 13:41:00 Yesica [facility] [address] - [place] CRTJ ARVEN FSTL XCP DIR LAURE ANAST NONAUTOG GRF 2023-08-28 13:41:00 Yesica [facility] [id number] - [place] ARTERIOVENOUS ANASTOMOSIS OPEN DIRECT 2023-08-28 13:41:00 Yesica [facility] POTASSIUM SERUM 2023-08-28 12:55:00 [facility] HB ABO GROUPING 2023-08-28 12:55:00 [facility] POTASSIUM SERUM 2023-08-28 12:55:00 [facility] HB ABO GROUPING 2023-08-28 12:55:00 [facility] XR CHEST 1 VW 2023-03-10 23:27:00 Rasheeda Riojas [facility] ASSIGNMENT OF BENEFITS 2023-03-10 23:12:34 Docto r Unassigned, [place] [facility] PHOSPHORUS 2023-03-10 22:56:00 Rasheeda Riojas [facility] MAGNESIUM 2023-03-10 22:56:00 Rasheeda Riojas [facility] COMP. METABOLIC PANEL (82257) 2023-03-10 22:56:00 Rsaheeda Riojas [facility] CBC WITH DIFF 2023-03-10 22:56:00 Rasheeda Riojas [facility] CONSENT/REFUSAL FOR DIAGNOSIS AND TREATMENT 2023-03-10 21:42:10 Doctor Unassigned, [place] [facility] AUTHORIZATION FOR RELEASE OF PHI 2023-02-28 06:01:00 Doctor Unassigned, [place] [facility] CORTISOL AM 2022-10-27 10:37:00 Javed [facility] MAGNESIUM 2022-10-27 09:01:00 Catie Chris [facility] BASIC METABOLIC PANEL (NA, K, CL, CO2, GLUCOSE, BUN, CREATININE, CA) 2022-10-27 09:01:00 Catie Chris [facility] PROTEIN CREAT RATIO URINE RANDOM 2022-10-26 21:10:00 Javed Chu [facility] CREATINE KINASE 2022-10-26 20:50:00 Javed Chu [facility] URIC ACID 2022-10-26 20:50:00 [facility] INTACT PTH CALCIUM GROUP 2022-10-26 20:50:00 Javed Chu [facility] US RETROPERITONEAL COMPLETE 2022-10-26 20:30:00 Javed Chu [facility] TROPONIN I 2022-10-25 15:40:00 [facility] TRANSTHORACIC ECHO (TTE) COMPLETE W/ CONTRAST 2022-10-25 13:31:00 [facility] 2022-10-25 08:20:00 [facility] TROPONIN I 2022-10-25 08:20:00 [facility]IC PANEL (NA, K, CL, CO2, GLUCOSE, BUN, CREATININE, CA) 2022-10-25 08:20:00 [facility] 2022-10-25 02:47:00 [facility] 2022-10-24 21:23:00 [facility] TROPONIN I 2022-10-24 21:23:00 [facility] LIPID PANEL ([id number])(TOTAL CHOLESTEROL, TRIGLYCERIDES, HDL) 2022-10-24 21:23:00 Yohannes Lopez [facility] N-TERMINAL PRO-BNP 2022-10-24 21:23:00 Yohannes Lopez [facility] HB ECG ROUTINE & RHYTHM STRIP 2022-10-24 15:42:04 Anitra Yen [facility] TROPONIN I 2022-10-24 15:22:00 Anitra Yen [facility] THYROID STIMULATING HORMONE 2022-10-24 15:22:00 [facility] COMP. METABOLIC PANEL ([id number]) 2022-10-24 15:22:00 [facility] CBC WITH DIFF 2022-10-24 15:22:00 OrquideaAnitra [facility] GLYCOSYLATED HEMOGLOBIN (A1C) 2022-10-24 15:22:[address] [facility] CONSENT/REFUSAL FOR DIAGNOSIS AND TREATMENT 2022-10-24 14:22:41 Doctor Unassigned, [place] [facility] CONSENT/REFUSAL FOR DIAGNOSIS AND TREATMENT 2022-07-27 18:28:45 Doctor Unassigned, [place] [facility] HB ECG ROUTINE & RHYTHM STRIP 2022-07-15 19:10:56 Nolan Jhaveri [facility] HB ECG ROUTINE & RHYTHM STRIP 2022-07-15 19:10:56 Nolan Jhaveri [facility] ASPIRATE OR ABSCESS CULTURE(AEROBIC/ANAEROBIC ) 2022-07-15 18:40:00 Chela Treviño [facility] ASPIRATE OR ABSCESS CULTURE(AEROBIC/ANAEROBIC ) 2022-07-15 18:40:00 Chela Treviño [facility] DEBRIDEMENT LOWER EXTREMITY 2022-07-15 18:03:00 Chela Treviño [facility] MAGNESIUM 2022-07-15 10:08:00 Katina Chris [facility] BASIC METABOLIC PANEL (NA, K, CL, CO2, GLUCOSE, BUN, CREATININE, CA) 2022-07-15 10:08:00 Katina Chris [facility] LIPID PANEL ([id number])(TOTAL CHOLESTEROL, TRIGLYCERIDES, HDL) 2022-07-15 10:08:00 Katina Chris [facility] CBC WITHOUT DIFF 2022-07-15 10:08:00 Katina Chris [facility] MAGNESIUM 2022-07-15 10:08:00 Katian Chris U [facility] BASIC METABOLIC PANEL (NA, K, CL, CO2, GLUCOSE, BUN, CREATININE, CA) 2022-07-15 10:08:00 Katina Chris [facility] LIPID PANEL ([id number])(TOTAL CHOLESTEROL, TRIGLYCERIDES, HDL) 2022-07-15 10:08:00 Katina Chris [facility] CBC WITHOUT DIFF 2022-07-15 10:08:00 Katina Chris [facility] URINE DRUG (IMMUNOASSAY) - COMPREHENSIVE DRUG SCREEN 2022-07-14 09:54:00 Edsalvador [facility] URINE DRUG (IMMUNOASSAY) - COMPREHENSIVE DRUG SCREEN 2022-07-14 09:54:00 Bridgett [facility] BASIC METABOLIC PANEL (NA, K, CL, CO2, GLUCOSE, BUN, CREATININE, CA) 2022-07-14 09:33:00 Bridgett [facility] CBC WITH DIFF 2022-07-14 09:33:00 Bridgett [facility] BASIC METABOLIC PANEL (NA, K, CL, CO2, GLUCOSE, BUN, CREATININE, CA) 2022-07-14 09:33:00 Bridgett [facility] CBC WITH DIFF 2022-07-14 09:33:00 Bridgett [facility] XR TIBIA FIBULA 2 VW LEFT 2022-07-14 00:13:04 Izabela Combs [facility] XR TIBIA FIBULA 2 VW LEFT 2022-07-14 00:13:04 Izabela Combs [facility] BLOOD CULTURE SCREEN 2022-07-13 23:32:00 Josiah Combs [facility] COMP. METABOLIC PANEL ([id number]) 2022-07-13 23:32:00 Josiah Combs [facility] CBC WITH DIFF 2022-07-13 23:32:00 Josiah Combs [facility] LACTIC ACID WHOLE BLOOD 2022-07-13 23:32:00 Frances Combs [facility] BLOOD CULTURE SCREEN 2022-07-13 23:32:00 Josiah Combs [facility] COMP. METABOLIC PANEL ([id number]) 2022-07-13 23:32:00 Josiah Combs [facility] CBC WITH DIFF 2022-07-13 23:32:00 Josiah Combs [facility] LACTIC ACID WHOLE BLOOD 2022-07-13 23:32:00 Frances Combs [facility] NOTICE OF PRIVACY PRACTICES 2022-07-13 22:34:00 Doctor Unassigned, [place] [facility] NOTICE OF PRIVACY PRACTICES 2022-07-13 22:34:00 Doctor Unassigned, [place] [facility] CONSENT/REFUSAL FOR DIAGNOSIS AND TREATMENT 2022-07-13 22:33:20 Doctor Unassigned, [place] [facility] CONSENT/REFUSAL FOR DIAGNOSIS AND TREATMENT 2022-07-13 22:33:20 Doctor Unassigned, [place] [facility] TRANSTHORACIC ECHO (TTE) COMPLETE W/ CONTRAST 2021-06-06 20:29:17 Emil Ramachandran [facility] RENAL ARTERY DUPLEX - BY VASCULAR LAB 2021-06-06 19:52:00 Emil Ramachandran [facility] BASIC METABOLIC PANEL (NA, K, CL, CO2, GLUCOSE, BUN, CREATININE, CA) 2021-06-06 10:50:00 Emil Ramachandran [facility] TROPONIN I 2021-06-05 13:29:00 Emil Ramachandran [facility] PHOSPHORUS 2021-06-05 08:37:00 Emil Ramachandran [facility] MAGNESIUM 2021-06-05 08:37:00 Emil Ramachandran [facility] TROPONIN I 2021-06-05 08:37:00 [facility] MET[facility]OLIC PANEL (NA, K, CL, CO2, GLUCOSE, BUN, CREATININE, CA) 2021-06-05 08:37:00 [facility]FF 2021-06-05 08:37:00 Emil Ramachandran [facility] CRITICAL CARE 2021-06-04 23:17:21 Rasheeda Riojas [facility] TROPONIN I 2021-06-04 20:49:00 Emil Ramachandran [facility] URINE DRUG (IMMUNOASSAY) - COMPREHENSIVE DRUG SCREEN W/O REFLEX 2021-06-04 17:35:[facility] 2021-06-04 16:53:00 [facility] COMP. METABOLIC PANEL ([id number]) 2021-06-04 16:53:00 [facility] 2021-06-04 16:53:00 Sh[facility] PROTHROMBIN TIME / INR 2021-06-04 16:53:00 Dannie Riojas [facility] ACTIVATED PARTIAL THRMPLAS BRITTNEY 2021-06-04 16:53:00 Shine [facility] N-TERMINAL PRO-BNP 2021-06-04 16:53:00 [facility] RHYTHM STRIP 2021-06-04 16:51:06 Shine [facility] CONSENT/REFUSAL FOR DIAGNOSIS AND TREATMENT 2021-06-04 16:42:16 Doctor Unassigned, [place] [facility] NOTICE OF PRIVACY PRACTICES 2020-07-08 17:59:10 Doctor Unassigned, [place] [facility] CONSENT/REFUSAL FOR DIAGNOSIS AND TREATMENT 2020-07-08 17:54:43 Doctor Unassigned, [place] [facility] MAGNESIUM 2020-06-03 11:39:00 Cristopher Larry [facility] BASIC METABOLIC PANEL (NA, K, CL, CO2, GLUCOSE, BUN, CREATININE, CA) 2020-06-03 11:39:00 Cristopher Larry [facility] CBC WITH DIFF 2020-06-03 11:38:00 Cristopher Larry [facility] TRANSTHORACIC ECHO (TTE) COMPLETE 2020-06-02 20:23:05 [facility] 2020-06-02 11:36:00 [facility] PARTIAL THRMPLAS BRITTNEY 2020-06-02 11:35:00 Adrien, [facility] ACTIVATED PARTIAL THRMPLAS BRITTNEY 2020-06-02 05:36:00 Adrien [facility] MAGNESIUM 2020-06-02 05:35:00 Ray [facility] TROPONIN I 2020-06-02 05:35:00 [facility] BASIC METABOLIC PANEL (NA, K, CL, CO2, GLUCOSE, BUN, CREATININE, CA) 2020-06-02 05:35:00 [facility] PHOS[facility] 2020-06-01 23:16:00 Ray [facility] TROPONIN I 2020-06-01 23:16:00 [facility] THYROID STIMULATING HORMONE 2020-06-01 23:16:00 [facility] LIPID PANEL ([id number])(TOTAL CHOLESTEROL, TRIGLYCERIDES, HDL) 2020-06-01 22:05:00 [facility] GLYCOSYLATED HEMOGLOBIN (A1C) 2020-06-01 22:05:00 [facility] CRITICAL CARE 2020-06-01 21:08:59 [facility] URINE DRUG (IMMUNOASSAY) - 4 ER PANEL 2020-06-01 19:25:00 Shine [facility] XR CHEST 1 VW 2020-06-01 16:54:29 [facility] HB ECG ROUTINE & RHYTHM STRIP 2020-06-01 16:39:04 Shine [facility] TROPONIN I 2020-06-01 16:36:00 Rasheeda Riojas [facility] HEPATIC FUNCTION PANEL ([id number]) (ALB,T.PRO,BILI T,BU/BC,ALT,AST,ALK PHOS) 2020-06-01 16:36:00 Rasheeda Riojas [facility] BASIC METABOLIC PANEL (NA, K, CL, CO2, GLUCOSE, BUN, CREATININE, CA) 2020-06-01 16:36:00 Rasheeda Riojas [facility] CBC WITH DIFF 2020-06-01 16:36:00 Rasheeda Riojas [facility] PROTHROMBIN TIME / INR 2020-06-01 16:36:00 Dannie Riojas [facility] ACTIVATED PARTIAL THRMPLAS BRITTNEY 2020-06-01 16:36:00 Rasheeda Riojas [facility] N-TERMINAL PRO-BNP 2020-06-01 16:36:00 Rasheeda Riojas [facility] COVID-19 (ID NOW RAPID TESTING) 2020-06-01 16:36:00 Rasheeda Riojas [facility] LAB ONLY COVID INTERPRETATION 2020-06-01 16:36:00 Rasheeda Riojas [facility] NOTICE OF PRIVACY PRACTICES 2020-06-01 16:09:18 Doctor Unassigned, [place] [facility] CONSENT/REFUSAL FOR DIAGNOSIS AND TREATMENT 2020-06-01 16:06:36 Doctor Unassigned, [place] [facility] AGREEMENTS AUTHORIZATIONS AND IRREVOCABLE ASSIGNMENTS (FORM 2001) 2020-06-01 05:01:00 Doctor Unassigned, [place] [facility] PHYSICIAN ORDERS 2019-10-02 05:01:00 Doctor Unas signed, [place] [facility] BASIC METABOLIC PANEL (NA, K, CL, CO2, GLUCOSE, BUN, CREATININE, CA) 2019-09-06 09:13:00 Ashlee Levin [facility] CBC WITH DIFF 2019-09-06 09:13:00 Ashlee Levin [facility] CAROTID DUPLEX BILATERAL BY VASCULAR LAB 2019-09-05 21:08:50 Emil Ramachandran [facility] ECHO ROUTINE W/DOPPLER COLOR 2019-09-05 15:46:43 Ashlee Levin [facility] CT HEAD WO CONTRAST 2019-09-05 13:59:23 Juan F Boyd [facility] INTACT PTH CALCIUM GROUP 2019-09-05 13:33:00 Javed Chu [facility] URINALYSIS 2019-09-05 13:33:00 [facility] CREATININE, URINE RANDOM 2019-09-05 13:33:00 Javed Chu [facility] TOTAL PROTEIN, URINE RANDOM 2019-09-05 13:33:00 Javed Chu [facility] CREATINE KINASE 2019-09-05 10:32:00 Javed Chu [facility] URIC ACID 2019-09-05 10:32:00 [facility] TROPONIN I 2019-09-05 10:32:00 Ashlee Levin [facility] BASIC METABOLIC PANEL (NA, K, CL, CO2, GLUCOSE, BUN, CREATININE, CA) 2019-09-05 10:32:00 Ashlee Levin [facility] CBC WITH DIFF 2019-09-05 10:32:00 Ashlee Levin [facility] ACTIVATED PARTIAL THRMPLAS BRITTNEY 2019-09-05 10:32:00 Bridgett [facility] TROPONIN I 2019-09-05 04:27:00 Ashlee Levin [facility] ACTIVATED PARTIAL THRMPLAS BRITTNEY 2019-09-05 04:26:00 Bridgett [facility] COVID-19 (ID NOW RAPID TESTING) 2019-09-04 22:39:00 Navarro Cat [facility] CT ANGIOGRAM CHEST 2019-09-04 21:27:13 Navarro Cat [facility] CT HEAD WO CONTRAST 2019-09-04 19:51:25 Jael Cat [facility] URINALYSIS 2019-09-04 19:45:00 Navarro Cat [facility] ADC / LCC - DRUG SCREEN TRIAGE 2019-09-04 19:45:00 Navarro Cat [facility] TROPONIN I 2019-09-04 19:33:00 Navarro Cat [facility] THYROID STIMULATING HORMONE 2019-09-04 19:33:00 Ashlee Levin [facility] COMP. METABOLIC PANEL ([id number]) 2019-09-04 19:33:00 Navarro Cat [facility] LIPID PANEL ([id number])(TOTAL CHOLESTEROL, TRIGLYCERIDES, HDL) 2019-09-04 19:33:00 Singer Navarro [facility] CBC WITH DIFF 2019-09-04 19:33:00 Navarro Cat [facility] GLYCOSYLATED HEMOGLOBIN (A1C) 2019-09-04 19:33:00 Singer Navarro [facility] EKG-12 LEAD 2019-09-04 19:13:59 Navarro Cat [facility] NOTICE OF PRIVACY PRACTICES 2019-09-04 18:59:24 Doctor Unassigned, [place] [facility] Encounters Start Date/Time End Date/Time Encounter Type Admission Type Attending [facility] Facility Care Department Encounter ID Source 2023-12-14 08:36:11 Outpatient REAL REEVES [facility] [id number] [facility] 2020-12-12 21:45:14 Emergency [facility] [id number] [facility] 2020-12-12 14:04:44 Emergency [facility] [id number] [facility] 2020-12-10 08:27:32 Emergency [facility] [id number] [facility] 2023-12-13 15:15:00 2023-12-13 15:15:00 Office Visit Real Robert [facility] [id number] [facility] 2023-12-13 15:15:00 2023-12-13 14:51:31 Outpatient REAL REEVES [facility] [id number] [facility] 2023-11-29 13:30:00 2023-11-29 13:30:00 Outpatient REAL REEVES [facility] [id number] [facility] 2023-11-29 06:11:00 2023-11-29 10:11:00 Outpatient R REAL ROBERT [facility] [id number] [facility] 2023-11-29 06:11:00 2023-11-29 10:11:00 Hospital Encounter Real Robert AT [facility] 1.2.840.114 350.1.13.10 4.2.7.2.686 [id number] [facility] 2023-11-29 07:10:00 2023-11-29 08:39:00 Surgery Real Robert [facility] AT [facility] 1.2.840.114 350.1.13.10 4.2.7.2.686 [id number] [facility] 2023-11-15 16:45:00 2023-11-15 16:54:16 Outpatient R SAY ROBERTIQ [facility] [id number] [facility] 2023-11-15 16:45:00 2023-11-15 16:54:16 Office Visit Real Robert [facility] 1.2.840.114 350.1.13.10 4.2.7.2.686 [id number] [facility] 2023-11-06 00:00:00 2023-11-06 09:20:30 Telephone Real Robert [facility] 1.2.840.114 350.1.13.10 4.2.7.2.686 [id number] [facility] 2023-10-25 00:00:00 2023-11-05 09:09:55 Telephone Yesica Real [facility] 1.2.840.114 350.1.13.10 4.2.7.2.686 [id number] [facility] 2023-11-01 14:15:00 2023-11-01 16:19:06 Outpatient R YESICAREAL [facility] [id number] [facility] 2023-11-01 14:15:00 2023-11-01 16:19:06 Office Visit Real Robert [facility] 1.2.840.114 350.1.13.10 4.2.7.2.686 [id number] [facility] 2023-10-11 13:00:00 2023-10-11 14:24:01 Outpatient R REAL ROBERT [facility] [id number] [facility] 2023-10-11 13:00:00 2023-10-11 14:24:01 [facility] 1.2.840.114 350.1.13.10 4.2.7.2.686 [id number] [facility] 2023-09-13 15:00:00 2023-09-13 17:33:29 Outpatient R REAL ROBERT [facility] [id number] [facility] 2023-09-13 15:00:00 2023-09-13 17:33:29 [facility] 1.2.840.114 350.1.13.10 4.2.7.2.686 [id number] [facility] 2023-08-28 07:15:00 2023-08-28 13:15:00 Outpatient R REAL ROBERT [facility] [id number] [facility] 2023-08-28 07:15:00 2023-08-28 13:15:00 [facility] 1.2.840.114 350.1.13.10 4.2.7.2.686 [id number] 049 [id number] [facility] 2023-08-28 08:22:00 2023-08-28 10:39:00 [facility] 1.2.840.114 350.1.13.10 4.2.7.2.686 [id number] [id number] [facility] 2023-08-27 15:30:00 2023-08-27 15:45:00 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 Visit Pob, Adc Lab Main [facility] 1.2840.114 350.1.13.10 4.2.7.2.686 [id number] [facility] 2023-08-27 15:30:00 2023-08-27 15:30:00 Outpatient R EMEKA [facility] [id number] [facility] 2023-08-17 00:00:00 2023-08-17 10:34:49 Case Management Emeka [facility] ([facility]) 1.20.114 350.1.13.10 4.2.7.2.686 [id number] [facility] 2023-08-09 00:00:00 2023-08-09 10:59:30 Clinic Assessment Tamar Schmidt [facility] 1.20.114 350.1.13.10 4.2.7.2.686 [id number] [facility] 2023-03-10 15:55:00 2023-03-10 19:31:00 Emergency X RASHEEDA RIOJAS [facility] ERT [id number] [facility] 2023-03-10 15:55:00 2023-03-10 19:31:00 Emergency Rashedea Riojas [facility] 1.2840.114 350.1.13.10 4.2.7.2.686 [id number] [facility] 2023-02-28 00:00:00 2023-02-28 00:00:00 Orders Only Doctor Unassigned, [place] [facility] 1.2.840.114 350.1.13.10 4.2.7.2.686 [id number] [facility] 2023-01-29 11:37:19 2023-01-29 11:37:19 Outpatient ANRDEI [facility] [id number] Sae Tavera 2022-10-30 00:00:00 2022-10-30 00:00:00 Telephone Yohannes Lopez [facility] 1..114 350.1.13.10 4.2.7.2.686 [id number] [facility] 2022-10-24 09:33:00 2022-10-27 18:46:00 Outpatient X MOE VALLEJO [facility] [id number] [facility] 2022-10-24 09:33:00 2022-10-27 18:46:00 Emergency Anitra Yen Jelani [facility] 1..114 350.1.13.10 4.2.7.2.686 [id number] [facility] 2022-09-21 13:20:00 2022-09-21 13:20:00 Outpatient R CADEN HANNA [facility] [id number] [facility] 2022-08-01 16:30:00 2022-08-01 16:30:00 Outpatient R CHELA TREVIÑO [facility] [id number] [facility] 2022-07-27 13:30:00 2022-07-27 13:30:00 Outpatient R PHILLIP PATEL [facility] [id number] [facility] 2022-07-27 00:00:00 2022-07-27 00:00:00 Orders Only Doctor Unassigned, [place] [facility] 1.0.114 350.1.13.10 4.2.7.2.686 [id number] [facility] 2022-07-24 15:00:00 2022-07-24 15:00:00 Outpatient R THOMAS, CARLOS UNGER [facility] [id number] [facility] 2022-07-18 00:00:00 2022-07-18 00:00:00 Transition of Care Alyssa Dawson 1.2.840.114 350.1.13.10 4.2.7.2.686 [id number] [facility] 2022-07-13 17:59:00 2022-07-16 15:46:00 Inpatient X MOE VALLEJO [facility] AILYN [id number] [facility] 2022-07-13 17:59:00 2022-07-16 15:46:00 Hospital Encounter Josiah Combs Jelani Edionwe, [facility] 1.2.840.114 350.1.13.10 4.2.7.2.686 [id number] [facility] 2022-07-15 13:30:00 2022-07-15 14:44:00 Surgery Chela Treviño [facility] [place] 1.2.840.114 350.1.13.10 4.2.7.2.686 [id number] [facility] 2021-06-07 00:00:00 2021-06-07 00:00:00 Transition of Care Alyssa Dawson 1.2.840.114 350.1.13.10 4.2.7.2.686 [id number] [facility] 2021-06-04 11:38:00 2021-06-06 17:30:00 Inpatient X EMIL RAMACHANDRAN [facility] [id number] [facility] 2021-06-04 11:38:00 2021-06-06 17:30:00 Hospital Encounter Rasheeda Riojas Yaman [facility] 1.2840.114 350.1.13.10 4.2.7.2.686 [id number] [facility] 2020-08-17 00:00:00 2020-08-17 00:00:00 Patient Outreach Cheryl [facility] 1.2840.114 350.1.13.10 4.2.7.2.686 [id number] [facility] 2020-07-08 13:00:00 2020-07-08 13:36:00 Emergency Navarro Cat [facility] 1.2840.114 350.1.13.10 4.2.7.2.686 [id number] [facility] 2020-07-05 11:30:00 2020-07-05 11:49:05 Outpatient BARBIE SEPULVEDA [facility] [id number] [facility] 2020-06-07 00:00:00 2020-06-07 00:00:00 Patient Outreach Cheryl [facility] 1.2840.114 350.1.13.10 4.2.7.2.686 [id number] [facility] 2020-06-05 11:15:00 2020-06-05 11:15:00 Outpatient BRYAN ESCALANTE [facility] [id number] [facility] 2020-06-04 00:00:00 2020-06-04 00:00:00 Transition of Care Alyssa Dawson Silvia Correiaveronica Otto 1.2840.114 350.1.13.10 4.2.7.2.686 [id number] [facility] 2020-06-01 11:17:00 2020-06-03 16:40:00 Emergency Rasheeda Riojas, Natanael Dee [facility] 1.2.840.114 350.1.13.10 4.2.7.2.686 [id number] [facility] 2020-06-01 00:00:00 2020-06-01 00:00:00 Orders Only Doctor Unassigned, [place] [facility] 1.2.840.114 350.1.13.10 4.2.7.2.686 [id number] [facility] 2019-10-30 15:30:00 2019-10-30 15:30:00 Outpatient R YOHANNES LOPEZ [facility] [id number] [facility] 2019-10-10 00:00:00 2019-10-10 00:00:00 Patient Outreach Nori Elias [facility] 1.2.840.114 350.1.13.10 4.2.7.2.686 [id number] [facility] 2019-10-10 00:00:00 2019-10-10 00:00:00 Patient Outreach Nori Elias [facility] 1.2.840.114 350.1.13.10 4.2.7.2.686 [id number] 2019-10-02 11:53:41 2019-10-02 12:26:55 Office Visit Yohannes Lopez [facility] 1.2.840.114 350.1.13.10 4.2.7.2.686 [id number] [facility] 2019-10-02 11:53:41 2019-10-02 12:26:55 Office Visit Yohannes Lopez [facility] 1.2.840.114 350.1.13.10 4.2.7.2.686 [id number] 2019-10-02 11:00:00 2019-10-02 11:00:00 Outpatient R LOPEZ, SENDIL [facility] [id number] [facility] 2019-10-02 00:00:00 2019-10-02 00:00:00 Orders Only Doctor Unassigned, [place] [facility] 1.2.840.114 350.1.13.10 4.2.7.2.686 [id number] [facility] 2019-10-02 00:00:00 2019-10-02 00:00:00 Orders Only Doctor Unassigned, [place] [facility] 1.2.840.114 350.1.13.10 4.2.7.2.686 [id number] 2019-09-29 00:00:00 2019-09-29 00:00:00 Yohannes Wing [facility] 1.2840.114 350.1.13.10 4.2.7.2.686 [id number] [facility] 2019-09-08 00:00:00 2019-09-08 00:00:00 Transition of Care Alyssa Dawson 1.2.840.114 350.1.13.10 4.2.7.2.686 [id number] [facility] 2019-09-04 14:00:49 2019-09-06 16:49:00 Hospital Encounter Navarro Cat Yaman [facility] 1.2840.114 350.1.13.10 4.2.7.2.686 [id number] [facility] Results Test Description Test Time Test Comments Results Resul t Comments Source FL TIME OR (NON-REPORTABLE) 2023-11-29 16:28:55 These images do not require a Radiology diagnostic report. [facility] [id number] 12:15:15* Test Item Value Reference Range Interpretation Comme nts K (test code = 1612194084) 4.9 mmol/L 3.5-5.0 Lab Interpretation (test cod e = 06085-8) [facility] [id number] 13:12:30* Test Item Value Reference Range Interpretation Comme nts K (test code = 3405772996) 4.7 mmol/L 3.5-5.0 Lab Interpretation (test cod e = 90228-1) [facility] [id number] 13:12:30* Test Item Value Reference Range Interpretation Comme nts K (test code = 6224435970) 4.7 mmol/L 3.5-5.0 Lab Interpretation (test cod e = 24073-5) Normal [facility] - ONCE [id number] 13:00:00* Test Item Value Reference Range Interpretation Comme nts ABO & RH (test code = 20) A POSITIVE IAT (test code = 1185) Negative [facility] - ONCE Sofpeok7625-15-65 13:00:00* Test Item Value Reference Range Interpretation Comme nts ABO & RH (test code = 20) A POSITIVE IAT (test code = 1185) Negative [facility] HospitalXR CHEST 1 [id number] 00:28:41ORDERING PROVIDER: ELLEN RIOJAS HISTORY: pulmonary edema TECHNIQUE: Frontal views of the Chest. COMPARISON: [facility] CenterCORT[facility]OL AM 2022-10-27 16:51:57* Test Item Value Reference Range Interpretation Comme nts KARLY AM (test code = 9060016022) 7.5 ug/dL 4.5-23.0 VLAD (test code = VLAD) Biotin has been reported to cause a positive bias, interpret results relative to patient's use of biotin. Lab Interpretation (test code = 55136-0) Normal [facility] HospitalMAGNESIUM2023-09-15 10:24:59* Test Item Value Reference Range Interpretation Comme nts MAGNESIUM (test code = 0446786356) 2.1 mg/dL 1.7-2.4 Lab Interpretation (test cod e = 32797-1) Normal [facility] HospitalBASIC METABOLIC PANEL (NA, K, CL, CO2, GLUCOSE, BUN, CREATININE, CA)2022-10-27 10:24:44* Test Item Value Reference Range Interpretation Comme nts NA (test code = 2857410883) 137 mmol/L 135-145 K (test code = 7438295540) 4.1 mmol/L 3.5-5.0 CL (test code = 0471397754) 108 mmol/L 98-108 CO2 TOTAL (test code = 5450917226) 23 mmol/L 23-31 AGAP (test code = 2671911093) 6 2-16 BUN (test code = 3759818425) 49 mg/dL 7-23 H GLUCOSE (test code = 8307333716) 98 mg/dL 70-110 CREATININE (test code = 0618662411) 3.80 mg/dL 0.60-1.25 H CALCIUM (test code = 7535958595) 8.8 mg/dL 8.6-10.6 eGFR (test code = 6029777952) 16.2 mL/min/1.73m2 VLAD (test code = VLAD) [...] imaging tests). Lab Interpretation (test code = 80463-1) Abnormal [facility] HospitalTroponin [id number] 09:27:25* Test Item Value Reference Range Interpretation Comme nts TROPONIN I (test code = 4182711437) 0.073 ng/mL <=0.034 H VLAD (test code [...] of biotin. Lab Interpretation (test code = 84021-0) Abnormal [facility] (NA, K, CL, CO2, GLUCOSE, BUN, CREATININE, CA)2022-10-25 09:07:46* Test Item Value Reference Range Interpretation Comme nts NA (test code = 3882914272) 139 mmol/L 135-145 K (test code = 8130434429) 3.9 mmol/L 3.5-5.0 CL (test code = 9783087873) 109 mmol/L 98-108 H CO2 TOTAL (test code = 6861671205) 24 mmol/L 23-31 AGAP (test code = 0055333375) 6 2-16 BUN (test code = 0566136014) 42 mg/dL 7-23 H GLUCOSE (test code = 4688601912) 88 mg/dL 70-110 CREATININE (test code = 4950996701) 3.38 mg/dL 0.60-1.25 H CALCIUM (test code = 7900910804) 8.6 mg/dL 8.6-10.6 eGFR (test code = 7955438237) 18.6 mL/min/1.73m2 VLAD (test code = VLAD) [...] imaging tests). Lab Interpretation (test code = 70524-1) Abnormal [facility] HospitalMagnesium Bckgx4980-12-26 09:07:46* Test Item Value Reference Range Interpretation Comme nts MAGNESIUM (test code = 5106779219) 2.0 mg/dL 1.7-2.4 Lab Interpretation (test cod e = 76508-6) Normal [facility] HospitalTroponin [id number] 03:54:28* Test Item Value Reference Range Interpretation Comme nts TROPONIN I (test code = 3867981752) 0.065 ng/mL <=0.034 H VLAD (test code [...] of biotin. Lab Interpretation (test code = 52053-1) Abnormal [facility] HospitalLactic Acid Whole Rrilu2823-41-23 23:43:00* Test Item Value Reference Range Interpretation Comme nts LACTIC ACID (test code = 6065285729) 1.48 mmol/L 0.50-2.20 Lab Interpretation (test cod e = 71449-6) Normal [facility] Whole Xswdl1135-60-68 23:43:00* Test Item Value Reference Range Interpretation Comme nts LACTIC ACID (test code = 9536680786) 1.48 mmol/L 0.50-2.20 Lab Interpretation (test cod e = 12246-2) Normal [facility] HospitalTransthoracic echo (TTE)2021-06-06 21:38:24* Test Item Value Reference Range Interpretation Comme nts LVIDD (test code = 8239172956) 4.80 cm IVS (test code = 9155887605) 1.72 cm Interventricular Septum Diastolic Thickness by 2D (test code = 3224039) 1.72 cm LVPWD (test code = 9305031954) 1.72 cm PW (test code = 0114697808) 1.72 cm 0.6-1.1 EF(Teich) (test code = 7477137963) 67.20 % LVIDS (test code = 3058025788) 3.00 cm FS (test code = 7830232465) 37 % EF - 2D (test code = 43297104) 67.20 % Ao root annulus (test code = 8380694874) 3.5 cm Ao root diam (test code = 4520010260) 3.50 cm Aortic root (test code = 8924384685) 3.5 cm LA size (test code = 8651387894) 4.7 cm LAV(MOD-sp4) (test code = 7368266925) 71.50 mL MV Prop V (test code = 3112396771) 36.90 cm/s E wave decelartion time (test code = 0406899491) 0.27 s MV Peak E Naun (test code = 4559770929) 91.1 cm/s MV Peak A Naun (test code = 4361741184) 124.7 cm/s E/A ratio (test code = 5257310239) ratio MV E/e' septal (test code = 2518359859) 4.3 cm/s Tapse (test code = 5235542046) 2.09 cm Ao peak naun (test code = 9648105880) 191.1 cm/s Ao max PG (test code = 3734118117) 14.90 mm[Hg] AV peak gradient (test code = 9560117137) mmHg Aortic valve mean velocity (test code = 7154351295) 128.5 cm/s Ao VTI (test code = 8043735104) 30.8 cm AV mean gradient (test code = 4241382934) mmHg LA volume (BP) (test code = 3988543800) 82.1 mL LAV(MOD-sp2) (test code = 5420228674) 91.40 mL Radiology Study observation (narrative) (test code = 69131-6) VLAD (test code = VLAD) ?Left?Ventricle: Left [...] (112.5 kg) 2.37 sq meters 184/102 78 [facility] (NA, K, CL, CO2, GLUCOSE, BUN, CREATININE, CA)2021-06-06 12:00:39* Test Item Value Reference Range Interpretation Comme nts NA (test code = 7953732967) 138 mmol/L 135-145 K (test code = 5406154063) 4.1 mmol/L 3.5-5.0 CL (test code = 9804506662) 107 mmol/L 98-108 CO2 TOTAL (test code = 5203945277) 24 mmol/L 23-31 AGAP (test code = 4246469061) 2-16 BUN (test code = 9029486162) 42 mg/dL 7-23 H GLUCOSE (test code = 5274306822) 114 mg/dL 70-110 H CREATININE (test code = 4454278723) 2.90 mg/dL 0.60-1.25 H CALCIUM (test code = 4443547084) 8.9 mg/dL 8.6-10.6 eGFR (test code = 5802334612) mL/min/1.73m2 VLAD (test code = VLAD) Association [...] imaging tests). Lab Interpretation (test code = 34534-2) Abnormal [facility] HospitalTROPONIN [id number] 14:17:20* Test Item Value Reference Range Interpretation Comments TROPONIN I (test code = 3913415963) 0.132 ng/mL See_Comment H [Automated message] The [...] of biotin. Lab Interpretation (test code = 04839-1) Abnormal [facility] HospitalTROPONIN [id number] 09:42:43* Test Item Value Reference Range Interpretation Comments TROPONIN I (test code = 3255059880) 0.122 ng/mL See_Comment H [Automated message] The [...] of biotin. Lab Interpretation (test code = 56611-5) Abnormal [facility] HospitalMAGNESIUM2022-04-24 09:32:20* Test Item Value Reference Range Interpretation Comme nts MAGNESIUM (test code = 6730460997) 2.0 mg/dL 1.7-2.4 Lab Interpretation (test cod e = 96141-6) Normal [facility] HospitalBASI METABOLIC PANEL (NA, K, CL, CO2, GLUCOSE, BUN, CREATININE, CA)2021-06-05 09:32:00* Test Item Value Reference Range Interpretation Comme nts NA (test code = 9377976182) 137 mmol/L 135-145 K (test code = 7399246759) 4.1 mmol/L 3.5-5.0 CL (test code = 3865716945) 105 mmol/L 98-108 CO2 TOTAL (test code = 9139684344) 25 mmol/L 23-31 AGAP (test code = 5727099865) 2-16 BUN (test code = 4771863213) 36 mg/dL 7-23 H GLUCOSE (test code = 2266196348) 132 mg/dL 70-110 H CREATININE (test code = 6074974680) 2.68 mg/dL 0.60-1.25 H CALCIUM (test code = 6575577922) 9.1 mg/dL 8.6-10.6 eGFR (test code = 4973412547) mL/min/1.73m2 VLAD (test code = VLAD) Association [...] imaging tests). Lab Interpretation (test code = 75610-3) Abnormal [facility] HospitalPHOSPHORUS2022-04-24 09:32:00* Test Item Value Reference Range Interpretation Comme nts PHOSPHORUS (test code = 1415187983) 3.3 mg/dL 2.5-5.0 Lab Interpretation (test cod e = 04836-8) Normal [facility] HospitalCBC WITH [id number] 08:57:19* Test Item Value Reference Range Interpretation [...] 32.7 g/dL 31.2-35.0 RDW-SD (test code = 04438-8) 39.6 fL 38.5-51.6 RDW-CV (test code = 788-0) 13.0 % 12.1-15.4 PLT (test code = 777-3) See_Comment [Automated messa ge] The system which generated this result transmitted reference range: 150 - 328 10*3/?L. The reference range was not used to interpret this result as normal/abnormal. MPV (test code = 52980-4) 10.5 fL 9.8-13.0 NRBC/100 WBC (test code = 9125094816) See_Comment [Automated AppTrigger ssage] The system which generated this result transmitted reference range: 0.0 - 10.0 /100 WBCs. The reference range was not used to interpret this result as normal/abnormal. NRBC x10^3 (test code = 3164639271) <0.01 See_Comment [Automated me ssage] The system which generated this result transmitted reference range: 10*3/?L. The reference range was not used to interpret this result as normal/abnormal. GRAN MAT (NEUT) % (test code = 770-8) 61.4 % IMM GRAN % (test code = 7039114951) 0.20 % LYMPH % (test code = 736-9) 27.4 % MONO % (test code = 5905-5) 7.9 % EOS % (test code = 713-8) 2.5 % BASO % (test code = 706-2) 0.6 % GRAN MAT x10^3(ANC) (test code = 2675536673) 2.96 10*3/uL 1.99-6.95 IMM GRAN x10^3 (test code = 9198781589) <0.03 0.00-0.06 LYMPH x10^3 (test code = 731-0) 1.32 10*3/uL 1.09-3.23 MONO x10^3 (test code = 742-7) 0.38 10*3/uL 0.36-1.02 EOS x10^3 (test code = 711-2) 0.12 10*3/uL 0.06-0.53 BASO x10^3 (test code = 704-7) 0.03 10*3/uL 0.01-0.09 General acute hospitalNOEL [id number] 23:16:30* Test Item Value Reference Range Interpretation Comments TROPONIN I (test code = 6840860104) 0.072 ng/mL See_Comment H [Automated message] The [...] of biotin. Lab Interpretation (test code = 97323-3) Abnormal [facility]TR[facility] [id number] 18:12:15* Test Item Value Reference Range Interpretation Comments TROPONIN I (test code = 3262808677) 0.069 ng/mL See_Comment H [Automated message] The [...] of biotin. Lab Interpretation (test code = 82131-4) Abnormal [facility] HospitalN-TERMINAL JSA-[id number] 18:09:14* Test Item Value Reference Range Interpretation Comme nts NT-proBNP (test code = 5863343979) 989 pg/mL See_Comment H [Automated message] The system which generated this result transmitted reference range: <=125. The reference range was not used to interpret this result as normal/abnormal. VLAD (test code = VLAD) Biotin has been reported to cause a negative bias, interpret results relative to patient's use of biotin. Lab Interpretation (test code = 72876-1) Abnormal [facility] HospitalACTIVATED PARTIAL THRMPLAS [id number] 18:07:14* Test Item Value Reference Range Interpretation Comme nts APTT Patient (test code = 3173-2) See_Comment [Automated message] The system which generated this result transmitted reference range: 23 - 38 Seconds. The reference range was not used to interpret this result as normal/abnormal. VLAD (test code = VLAD) The [facility] patient population mean normal value for aPTT is 30 seconds. Lab Interpretation (test code = 51435-9) [facility] / [id number] 18:05:13* Test Item Value Reference Range Interpretation Comme [facility] PROTIME PATIENT (test code = 5964-2) See_Comment [Automated [employer] ge] The system which generated this result transmitted reference range: 12.0 - 14.7 Seconds. The reference range was not used to interpret this result as normal/abnormal. INR (test code = 6301-6) Normal INR <1.1; Warfarin Therapeutic range 2.0 to 3.0 or 2.5 to 3.5, depending upon the indications. Lab Interpretation (test code = 38667-8) [facility] (14944)2021-06-04 18:04:33* Test Item Value Reference Range Interpretation Comme [facility] NA (test code = 6125889171) 138 mmol/L 135-145 K (test code = 2467660989) 4.5 mmol/L 3.5-5.0 CL (test code = 4456968143) 104 mmol/L 98-108 CO2 TOTAL (test code = 6063240093) 26 mmol/L 23-31 AGAP (test code = 2785606864) 2-16 BUN (test code = 8894447813) 33 mg/dL 7-23 H GLUCOSE (test code = 1596508710) 100 mg/dL 70-110 CREATININE (test code = 1878944802) 2.75 mg/dL 0.60-1.25 H TOTAL BILI (test code = 6553370829) 0.7 mg/dL 0.1-1.1 CALCIUM (test code = 4620064403) 9.5 mg/dL 8.6-10.6 T PROTEIN (test code = 1819222750) 7.1 g/dL 6.3-8.2 ALBUMIN (test code = 3258468696) 4.2 g/dL 3.5-5.0 ALK PHOS (test code = 3242338331) 82 U/L 34-122 ALTv (test code = 1742-6) 23 U/L 5-50 AST(SGOT) (test code = 8393343070) 25 U/L 13-40 eGFR (test code = 7517766783) mL/min/1.73m2 VLAD (test code = VLAD) Association [...] imaging tests). Lab Interpretation (test code = 69408-6) Abnormal [place] [facility] [id number] 17:43:32* Test Item Value Reference Range Interpretation Comme nts WBC (test code = 6690-2) See_Comment [Automated [employer]] The system which generated this result transmitted reference range: 4.20 - 10.70 10*3/?L. The reference range was not used to interpret this result as normal/abnormal. RBC (test code = 789-8) See_Comment [Automated [employer]] The system which generated this result transmitted [...] 32.7 g/dL 31.2-35.0 RDW-SD (test code = 70753-8) 39.8 fL 38.5-51.6 RDW-CV (test code = 788-0) 12.9 % 12.1-15.4 PLT (test code = 777-3) See_Comment [Automated messa ge] The system which generated this result transmitted reference range: 150 - 328 10*3/?L. The reference range was not used to interpret this result as normal/abnormal. MPV (test code = 66362-6) 10.5 fL 9.8-13.0 NRBC/100 WBC (test code = 6887964836) See_Comment [Automated me ssage] The system which generated this result transmitted reference range: 0.0 - 10.0 /100 WBCs. The reference range was not used to interpret this result as normal/abnormal. NRBC x10^3 (test code = 6525625644) <0.01 See_Comment [Automated me ssage] The system which generated this result transmitted reference range: 10*3/?L. The reference range was not used to interpret this result as normal/abnormal. GRAN MAT (NEUT) % (test code = 770-8) 56.2 % IMM GRAN % (test code = 3278199416) 0.20 % LYMPH % (test code = 736-9) 30.3 % MONO % (test code = 5905-5) 9.7 % EOS % (test code = 713-8) 3.0 % BASO % (test code = 706-2) 0.6 % GRAN MAT x10^3(ANC) (test code = 1957176980) 2.62 10*3/uL 1.99-6.95 IMM GRAN x10^3 (test code = 8855261944) <0.03 0.00-0.06 LYMPH x10^3 (test code = 731-0) 1.41 10*3/uL 1.09-3.23 MONO x10^3 (test code = 742-7) 0.45 10*3/uL 0.36-1.02 EOS x10^3 (test code = 711-2) 0.14 10*3/uL 0.06-0.53 BASO x10^3 (test code = 704-7) 0.03 10*3/uL 0.01-0.09 [facility] METABOLIC PANEL (NA, K, CL, CO2, GLUCOSE, BUN, CREATININE, CA)2020-06-03 13:06:15* Test Item Value Reference Range Interpretation Comme nts NA (test code = 7001366444) 135 mmol/L 135-145 K (test code = 6945797115) 4.2 mmol/L 3.5-5.0 CL (test code = 9042801206) 103 mmol/L 98-108 CO2 TOTAL (test code = 1268730847) 26 mmol/L 23-31 AGAP (test code = 5828051897) 2-16 BUN (test code = 3792064832) 35 mg/dL 7-23 H GLUCOSE (test code = 2105651950) 104 mg/dL 70-110 CREATININE (test code = 2663744652) 2.31 mg/dL 0.60-1.25 H CALCIUM (test code = 5367586870) 8.9 mg/dL 8.6-10.6 eGFR (test code = 0329818632) mL/min/1.73m2 VLAD (test code = VLAD) Association [...] imaging tests). Lab Interpretation (test code = 91389-2) [facility] 13:06:15* Test Item Value Reference Range Interpretation Comme nts MAGNESIUM (test code = 1970039551) 2.1 mg/dL 1.7-2.4 Lab Interpretation (test cod e = 51366-2) Normal [facility] WITH [id number] 12:01:28* Test Item Value Reference Range Interpretation Comme nts WBC (test code = 6690-2) See_Comment [Automated [employer]] The system which generated this result transmitted reference range: 4.20 - 10.70 10*3/?L. The reference range was not used to interpret this result as normal/abnormal. RBC (test code = 789-8) See_Comment [Automated [employer]] The system which generated this result transmitted [...] 32.9 g/dL 31.2-35.0 RDW-SD (test code = 03641-2) 41.2 fL 38.5-51.6 RDW-CV (test code = 788-0) 13.2 % 12.1-15.4 PLT (test code = 777-3) See_Comment [Automated messa ge] The system which generated this result transmitted reference range: 150 - 328 10*3/?L. The reference range was not used to interpret this result as normal/abnormal. MPV (test code = 61254-3) 10.9 fL 9.8-13.0 NRBC/100 WBC (test code = 7903542125) See_Comment [Automated me ssage] The system which generated this result transmitted reference range: 0.0 - 10.0 /100 WBCs. The reference range was not used to interpret this result as normal/abnormal. NRBC x10^3 (test code = 8440697662) <0.01 See_Comment [Automated me ssage] The system which generated this result transmitted reference range: 10*3/?L. The reference range was not used to interpret this result as normal/abnormal. GRAN MAT (NEUT) % (test code = 770-8) 56.0 % IMM GRAN % (test code = 3209446446) 0.20 % LYMPH % (test code = 736-9) 25.1 % MONO % (test code = 5905-5) 14.9 % EOS % (test code = 713-8) 3.5 % BASO % (test code = 706-2) 0.3 % GRAN MAT x10^3(ANC) (test code = 9532749130) 3.66 10*3/uL 1.99-6.95 IMM GRAN x10^3 (test code = 4433863869) <0.03 0.00-0.06 LYMPH x10^3 (test code = 731-0) 1.64 10*3/uL 1.09-3.23 MONO x10^3 (test code = 742-7) 0.97 10*3/uL 0.36-1.02 EOS x10^3 (test code = 711-2) 0.23 10*3/uL 0.06-0.53 BASO x10^3 (test code = 704-7) <0.03 0.01-0.09 [facility] [id number] 03:20:06COVID DMT InterpretationInterpretation/Recommendations: Molecular NAAT Tests for Active Infection with the SARS-CoV-2 Virus: The patient has currently tested negative for the SARS-CoV-2 virus that causes COVID-19 illness, subsequent to a previously positive test. At this time, the patient may be rec overing from the infection, which is likely if any present symptoms are decreasing. In hgkn-nf-ntcbzcuz illness, the patient may be considered no [...] COVID-19 testing the patient has had at [facility], including molecular NAAT testing (more commonly known as PCR testing and Rapid ID Now testing) and antibody testing. It does not take into account any testing that a patient has had outside of the [facility] medical record. [facility] LABORATORY SERVICESCOVID GqoyfkpFCQS-AsQ-3 Rapid ID NOW (no units) ? ? Date ? Value ? 06/01/2020 ? Not Detected ? ? ? 09/04/2019 ? Positive (A) ? [facility] LABORATORY SERVICESUnDel Sol Medical CenterTroponin [id number] 13:48:42* Test Item Value Reference Range Interpretation Comme nts TROPONIN I (test code = 6235124705) 0.119 ng/mL See_Comment H Hemolyzed specimen [Automated [...] biotin. ? Lab Interpretation (test code = 53247-8) Abnormal [facility]ACTIV[facility] PARTIAL THRMPLAS [id number] 12:21:16* Test Item Value Reference Range Interpretation Comme nts APTT Patient (test code = 3173-2) See_Comment H [Automated messa ge] The system which generated this result transmitted reference range: 26 - 36 Seconds. The reference range was not used to interpret this result as normal/abnormal. Lab Interpretation (test code = 50381-8) Abnormal [facility] HospitalGlycosylated Hemoglobin (A1C)2020-06-02 12:04:04* Test Item Value Reference Range Interpretation Comme [facility] HGB A1C (test code = 4548-4) 5.7 % 4.0-5.7 VLAD (test code = VLAD) Reference RangesNormal: <5.7%Prediabetes: 5.7 - 6.4%Diabetes: > 6.5% Lab Interpretation (test code = 10925-9) Normal [facility] HospitalTroponin [id number] 07:18:35* Test Item Value Reference Range Interpretation Comme [facility] TROPONIN I (test code = 6899432546) 0.130 ng/mL See_Comment H [Automated message] The [...] biotin. ? Lab Interpretation (test code = 51432-4) Abnormal [facility] HospitalBasi Metabolic Panel (NA, K, CL, CO2, GLUCOSE, BUN, CREATININE, CA)2020-06-02 07:06:14* Test Item Value Reference Range Interpretation Comme nts NA (test code = 0555138815) 136 mmol/L 135-145 K (test code = 7468655419) 3.9 mmol/L 3.5-5.0 CL (test code = 8620015874) 104 mmol/L 98-108 CO2 TOTAL (test code = 5831390517) 25 mmol/L 23-31 AGAP (test code = 7234732883) 2-16 BUN (test code = 9159016614) 38 mg/dL 7-23 H GLUCOSE (test code = 1013987469) 103 mg/dL 70-110 CREATININE (test code = 9450472544) 2.49 mg/dL 0.60-1.25 H CALCIUM (test code = 9164367264) 9.0 mg/dL 8.6-10.6 eGFR (test code = 5987841832) mL/min/1.73m2 VLAD (test code = VLAD) Association [...] imaging tests). Lab Interpretation (test code = 67284-9) Abnormal [facility] HospitalMagnesium Lhoxr3285-77-72 07:06:14* Test Item Value Reference Range Interpretation Comme nts MAGNESIUM (test code = 0463973778) 1.8 mg/dL 1.7-2.4 Lab Interpretation (test cod e = 34595-1) Normal [facility] HospitalACTIVATED PARTIAL THRMPLAS [id number] 06:54:52* Test Item Value Reference Range Interpretation Comme nts APTT Patient (test code = 3173-2) See_Comment [Automated [employer]] The system which generated this result transmitted reference range: 26 - 36 Seconds. The reference range was not used to interpret this result as normal/abnormal. Lab Interpretation (test code = 13313-9) Normal [facility] HospitalThyroid Stimulating Hormone (TSH)2020-06-02 00:27:14* Test Item Value Reference Range Interpretation Comme nts TSH (test code = 1344640241) See_Comment [Automated [employer]] The system which generated this result transmitted reference range: 0.45 - 4.70 mIU/L. The reference range was not used to interpret this result as normal/abnormal. Lab Interpretation (test code = 41121-2) Normal [facility] HospitalTroponin [id number] 00:08:44* Test Item Value Reference Range Interpretation Comme nts TROPONIN I (test code = 4228082190) 0.096 ng/mL See_Comment H [Automated message] The [...] biotin. ? Lab Interpretation (test code = 79466-0) Abnormal [facility] HospitalPhosphorus Nlqty4158-41-01 23:57:01* Test Item Value Reference Range Interpretation Comme nts PHOSPHORUS (test code = 7700073182) 2.8 mg/dL 2.5-5.0 Lab Interpretation (test cod e = 23479-7) Normal [facility] HospitalLipid Panel (Total Cholesterol, Triglycerides, HDL)2020-06-01 23:07:05* Test Item Value Reference Range Interpretation Comme nts CHOL (test code = 5213327930) 171 mg/dL 120-200 HDL (test code = 9355439851) 53 mg/dL >40 HDLC RATIO (test code = 5220042811) See_Comment [[employer]] The system which generated this result transmitted reference range: <=5.0. The reference range was not used to interpret this result as normal/abnormal. TRIG (test code = 0225132506) 54 mg/dL 30-170 LDL CHOL (test code = 07795-9) 107 mg/dL See_Comment [[employer]] The system which generated this result transmitted reference range: <=160. The reference range was not used to interpret this result as normal/abnormal. VLDL (test code = 5269009069) 11 mg/dL 5-60 Lab Interpretation (test code = 65409-7) Normal [facility] HospitalCritical [id number] 21:08:59Rasheeda Riojas MD ? ? 06/01/2020 ?4:09 [...] patient's response to treatment and examination of patientUnDel Sol Medical CenterURINE DRUG (IMMUNOASSAY) - 4 ER [id number] 20:31:46* Test Item Value Reference Range Interpretation Comme nts AMPHET (test code = 7597945340) Negative Negative Cocaine Metabolite (test code = 5706163716) Presumptive Positive Negative A OPIATES (test code = 1983515438) Negative Negative THC (test code = 7280737836) Negative Negative VLAD (test code = VLAD) Urine Drug Cutoff Ranges Amphetamine: ? 1,000 ng/mLCocaine: ? 150 ng/mLOpiates: ? 300 ng/mLCannabinoids: ?50 ng/mL The results are to be used only for medical (i.e., treatment) purposes. Unconfirmed screening results must not be used for non-medical purposes (e.g., employment testing, legal testing). Lab Interpretation (test code = 20058-2) Abnormal [facility] HospitalTroponin [id number] 17:18:05* Test Item Value Reference Range Interpretation Comme [facility] TROPONIN I (test code = 5381695180) 0.088 ng/mL See_Comment H [Automated message] The [...] biotin. ? Lab Interpretation (test code = 99795-3) Abnormal [facility] HospitalN-TERMINAL [id number] 17:15:05* Test Item Value Reference Range Interpretation Comme nts NT-proBNP (test code = 0604765363) 900 pg/mL See_Comment H [Automated message] The system which generated this result transmitted reference range: <=125. The reference range was not used to interpret this result as normal/abnormal. VLAD (test code = VLAD) Biotin has been reported to cause a negative bias, interpret results relative to patient's use of biotin. Lab Interpretation (test code = 98719-1) Abnormal [facility] HospitalCOVID-19 (ID NOW RAPID TESTING)2020-06-01 17:10:05* Test Item Value Reference Range Interpretation Comme nts SARS-CoV-2 Rapid ID NOW (test code = 66586-1) Not Detected Not Detected VLAD (test code = VLAD) ID NOW COVID-19 As say is an isothermal nucleic acid amplification test intended for the qualitative detection of nucleic acid from SARS-CoV-2 viral RNA in nasopharyngeal (PUBLIC INFORMATION OFFICER) specimens. It is used under Emergency [...] clinically indicated. Lab Interpretation (test code = 47237-5) Normal [facility] Metabolic Panel (NA, K, CL, CO2, GLUCOSE, BUN, CREATININE, CA)2020-06-01 17:07:08* Test Item Value Reference Range Interpretation Comme nts NA (test code = 9622334629) 137 mmol/L 135-145 K (test code = 5202605537) 4.2 mmol/L 3.5-5.0 CL (test code = 7338294264) 104 mmol/L 98-108 CO2 TOTAL (test code = 2109874593) 24 mmol/L 23-31 AGAP (test code = 8833766076) 2-16 BUN (test code = 3314951625) 36 mg/dL 7-23 H GLUCOSE (test code = 6703802047) 99 mg/dL 70-110 CREATININE (test code = 5926009024) 2.38 mg/dL 0.60-1.25 H CALCIUM (test code = 1417656235) 9.1 mg/dL 8.6-10.6 eGFR (test code = 3180897724) mL/min/1.73m2 VLAD (test code = VLAD) Association [...] imaging tests). Lab Interpretation (test code = 42701-2) Abnormal [facility] HospitalHepatic Function Panel (ALB, T.PRO, BILI T, BU/BC, ALT, AST, ALK PHOS)2020-06-01 17:07:03* Test Item Value Reference Range Interpretation Comme nts TOTAL BILI (test code = 0861201588) 0.5 mg/dL 0.1-1.1 BILI UNCON (test code = 1351692215) 0.4 mg/dL 0.1-1.1 BILI CONJ (test code = 7315600785) 0.0 mg/dL 0.0-0.3 T PROTEIN (test code = 3856918291) 6.9 g/dL 6.3-8.2 ALBUMIN (test code = 6335182364) 4.1 g/dL 3.5-5.0 ALK PHOS (test code = 6683355498) 96 U/L 34-122 ALTv (test code = 1742-6) 17 U/L 5-50 AST(SGOT) (test code = 4276172261) 26 U/L 13-40 Lab Interpretation (test cod e = 79854-5) Normal [facility] HospitalaPTT2021-04-20 17:04:25* Test Item Value Reference Range Interpretation Comme [facility] APTT Patient (test code = 3173-2) See_Comment [Automated message] The system which generated this result transmitted reference range: 23 - 38 Seconds. The reference range was not used to interpret this result as normal/abnormal. VLAD (test code = VLAD) The [facility] patient population mean normal value for aPTT is 30 seconds. Lab Interpretation (test code = 54357-0) Normal [facility] HospitalProthrombin Time (PT) / [id number] 17:02:24 * Test Item Value Reference Range Interpretation Comme [facility] PROTIME PATIENT (test code = 5964-2) See_Comment [Automated [employer]] The system which generated this result transmitted reference range: 12.0 - 14.7 Seconds. The reference range was not used to interpret this result as normal/abnormal. INR (test code = 6301-6) Normal INR <1.1; Warfarin Therapeutic range 2.0 to 3.0 or 2.5 to 3.5, depending upon the indications. Lab Interpretation (test code = 02392-2) Normal [facility] with Edituplafvoa7734-97-04 16:59:03* Test Item Value Reference Range Interpretation Comme nts WBC (test code = 6690-2) See_Comment [Automated [employer]] The system which generated this result transmitted reference range: 4.20 - 10.70 10*3/?L. The reference range was not used to interpret this result as normal/abnormal. RBC (test code = 789-8) See_Comment [Automated [employer]] The system which generated this result [...] 32.7 g/dL 31.2-35.0 RDW-SD (test code = 07879-4) 42.2 fL 38.5-51.6 RDW-CV (test code = 788-0) 13.3 % 12.1-15.4 PLT (test code = 777-3) See_Comment [Automated [employer]] The system which generated this result transmitted reference range: 150 - 328 10*3/?L. The reference range was not used to interpret this result as normal/abnormal. MPV (test code = 01122-6) 10.8 fL 9.8-13.0 NRBC/100 WBC (test code = 6660320194) See_Comment [Automated [employer] ssage] The system which generated this result transmitted reference range: 0.0 - 10.0 /100 WBCs. The reference range was not used to interpret this result as normal/abnormal. NRBC x10^3 (test code = 7892986782) <0.01 See_Comment [Automated me ssage] The system which generated this result transmitted reference range: 10*3/?L. The reference range was not used to interpret this result as normal/abnormal. GRAN MAT (NEUT) % (test code = 770-8) 59.7 % IMM GRAN % (test code = 8497576600) 0.20 % LYMPH % (test code = 736-9) 26.4 % MONO % (test code = 5905-5) 9.3 % EOS % (test code = 713-8) 3.8 % BASO % (test code = 706-2) 0.6 % GRAN MAT x10^3(ANC) (test code = 7860632492) 2.96 10*3/uL 1.99-6.95 IMM GRAN x10^3 (test code = 7972920115) <0.03 0.00-0.06 LYMPH x10^3 (test code = 731-0) 1.31 10*3/uL 1.09-3.23 MONO x10^3 (test code = 742-7) 0.46 10*3/uL 0.36-1.02 EOS x10^3 (test code = 711-2) 0.19 10*3/uL 0.06-0.53 BASO x10^3 (test code = 704-7) 0.03 10*3/uL 0.01-0.09 [facility] 1 Olrq5946-04-44 16:57:50HISTORY: Dyspnea. TECHNIQUE: Portable AP erect view [...] joint. CONCLUSIONS: No signs of acute cardiopulmonary disease.[facility], Radiant Results Inft User - 06/01/2020 11:58 [...] glenohumeral joint.CONCLUSIONS: No signs of acute cardiopulmonary disease.[facility] HospitalINTACT PTH CALCIUM [id number] 16:15:00* Test Item Value Reference Range Interpretation Comme nts CALCIUM (test code = 1309735919) 8.7 mg/dL 8.6-10.6 PTH-INTACT (test code = 6738300731) 63.1 pg/mL PTH-CA Interpretation (test code = 0771682728) PTH IS Appropria te for Calcium [facility] with Ujqroqrvcmtj6455-41-91 10:39:00* Test Item Value Reference Range Interpretation Comme nts WBC (test code = 6690-2) See_Comment [Automated [employer]] The system which generated this result transmitted reference range: 4.20 - 10.70 10*3/?L. The reference range was not used to interpret this result as normal/abnormal. RBC (test code = 789-8) See_Comment [Automated [employer]] The system which generated this result transmitted [...] 33.3 g/dL 31.2-35 RDW-SD (test code = 18463-9) 42.3 fL 38.5-51.6 RDW-CV (test code = 788-0) 13.7 % 12.1-15.4 PLT (test code = 777-3) See_Comment [Automated messa ge] The system which generated this result transmitted reference range: 150 - 328 10*3/?L. The reference range was not used to interpret this result as normal/abnormal. MPV (test code = 96242-7) 11.0 fL 9.8-13 NRBC/100 WBC (test code = 3336501382) See_Comment [Automated me ssage] The system which generated this result transmitted reference range: 0.0 - 10.0 /100 WBCs. The reference range was not used to interpret this result as normal/abnormal. NRBC x10^3 (test code = 4067547007) <0.01 See_Comment [Automated messa ge] The system which generated this result transmitted reference range: 10*3/?L. The reference range was not used to interpret this result as normal/abnormal. GRAN MAT (NEUT) % (test code = 770-8) 44.6 % IMM GRAN % (test code = 9723382408) 0.20 % LYMPH % (test code = 736-9) 43.1 % MONO % (test code = 5905-5) 9.0 % EOS % (test code = 713-8) 2.9 % BASO % (test code = 706-2) 0.2 % GRAN MAT x10^3(ANC) (test code = 5550747968) 1.87 10*3/uL 1.99-6.95 L IMM GRAN x10^3 (test code = 4670250309) <0.03 0-0.06 LYMPH x10^3 (test code = 731-0) 1.81 10*3/uL 1.09-3.23 MONO x10^3 (test code = 742-7) 0.38 10*3/uL 0.36-1.02 EOS x10^3 (test code = 711-2) 0.12 10*3/uL 0.06-0.53 BASO x10^3 (test code = 704-7) <0.03 0.01-0.09 Lab Interpretation (test code = 48249-3) Abnormal [facility] Metabolic Panel (NA, K, CL, CO2, GLUCOSE, BUN, CREATININE, CA)2019-09-06 10:39:00* Test Item Value Reference Range Interpretation Comme nts NA (test code = 3886066476) 136 mmol/L 135-145 K (test code = 4642330385) 3.8 mmol/L 3.5-5 CL (test code = 3378768091) 106 mmol/L 98-108 CO2 TOTAL (test code = 4617943336) 25 mmol/L 23-31 AGAP (test code = 0255315925) 2-16 BUN (test code = 2572385801) 27 mg/dL 7-23 H GLUCOSE (test code = 8816448048) 89 mg/dL 70-110 CREATININE (test code = 1418477103) 2.06 mg/dL 0.6-1.25 H CALCIUM (test code = 7027241302) 8.7 mg/dL 8.6-10.6 eGFR Calculation (Non-) (test code = 3732364586) mL/min/1.73m2 eGFR Calculation () (test code = 7376040966) mL/min/1.73m2 VLAD (test code = VLAD) Association [...] imaging tests). Lab Interpretation (test code = 35842-2) Abnormal [facility] HospitalCT HEAD WO VSTRILCY8159-94-61 14:39:09No acute intracranial hemorrhage or mass effect. [...] hypoattenuation is also essentially changed in degree [id number] and favored to represent sequelae of microvascular [...] hypoattenuation is also essentially changed in degree [id number] and favored to represent sequelae of microvascular [...] this study and agree with theabove report. [facility] with Woboxoxrlkan3202-60-18 14:22:00* Test Item Value Reference Range Interpretation Comme nts WBC (test code = 6690-2) See_Comment [SocialBro] The system which generated this result transmitted reference range: 4.20 - 10.70 10*3/?L. The reference range was not used to interpret this result as normal/abnormal. RBC (test code = 789-8) See_Comment [SocialBro] The system which generated this result transmitted [...] 32.4 g/dL 31.2-35 RDW-SD (test code = 14998-2) 42.4 fL 38.5-51.6 RDW-CV (test code = 788-0) 13.5 % 12.1-15.4 PLT (test code = 777-3) See_Comment [Automated messa ge] The system which generated this result transmitted reference range: 150 - 328 10*3/?L. The reference range was not used to interpret this result as normal/abnormal. MPV (test code = 16778-4) 11.1 fL 9.8-13 NRBC/100 WBC (test code = 1913732908) See_Comment [Automated [employer] ssage] The system which generated this result transmitted reference range: 0.0 - 10.0 /100 WBCs. The reference range was not used to interpret this result as normal/abnormal. NRBC x10^3 (test code = 6544670127) <0.01 See_Comment [Automated messa ge] The system which generated this result transmitted reference range: 10*3/?L. The reference range was not used to interpret this result as normal/abnormal. GRAN MAT (NEUT) % (test code = 770-8) 38.8 % IMM GRAN % (test code = 2060811579) 0.40 % LYMPH % (test code = 736-9) 47.7 % MONO % (test code = 5905-5) 9.4 % EOS % (test code = 713-8) 3.3 % BASO % (test code = 706-2) 0.4 % GRAN MAT x10^3(ANC) (test code = 5008490076) 1.78 10*3/uL 1.99-6.95 L IMM GRAN x10^3 (test code = 8056793703) <0.03 0-0.06 LYMPH x10^3 (test code = 731-0) 2.19 10*3/uL 1.09-3.23 MONO x10^3 (test code = 742-7) 0.43 10*3/uL 0.36-1.02 EOS x10^3 (test code = 711-2) 0.15 10*3/uL 0.06-0.53 BASO x10^3 (test code = 704-7) <0.03 0.01-0.09 Lab Interpretation (test code = 62644-7) Abnormal [facility] HospitalURINALYSIS2020-07-24 14:11:00* Test Item Value Reference Range Interpretation Comme nts APPEARANCE (test code = 7988431371) Clear Clear COLOR (test code = 8793669929) Yellow Yellow PH (test code = 9731538014) 4.8-8.0 SP GRAVITY (test code = 3020639418) 1.003-1.030 GLU U QUAL (test code = 7444628698) Normal Normal BLOOD (test code = 6281706576) Negative Negative KETONES (test code = 5203965417) Negative Negative PROTEIN (test code = 2887-8) Negative Negative UROBILIN (test code = 6997889922) Normal Normal BILIRUBIN (test code = 7659400701) Negative Negative NITRITE (test code = 5158400211) Negative Negative LEUK BING (test code = 4849550812) Negative Negative RBC/HPF (test code = 6619321792) See_Comment [Automated [employer] ge] The system which generated this result transmitted reference range: 0 - 3 HPF. The reference range was not used to interpret this result as normal/abnormal. WBC/HPF (test code = 2533866690) See_Comment [Automated [employer]] The system which generated this result transmitted reference range: 0 - 5 HPF. The reference range was not used to interpret this result as normal/abnormal. BACTERIA (test code = 3618205918) Negative Negative MUCOUS (test code = 9903338287) Slight Negative LPF A Lab Interpretation (test code = 48681-2) [facility]normal [facility]AT[facility] [id number] 14:04:00* Test Item Value Reference Range Interpretation Comme nts CK (test code = 8310782382) 185 U/L 33-194 Lab Interpretation (test cod e = 99441-8) Normal [facility] [id number] 14:04:00* Test Item Value Reference Range Interpretation Comme [facility] URIC ACID (test code = 8982763504) 8.9 mg/dL 3.6-8 H Lab Interpretation (test cod e = 86624-8) [facility]normal [facility]CREAT[facility], URINE [id number] 14:00:00* Test Item Value Reference Range Interpretation Comme nts CREAT U (test code = 7659927464) 158.4 mg/dL [facility]TOTAL PROTEIN, URINE [id number] 14:00:00 * Test Item Value Reference Range Interpretation Comme nts T. PROT U (test code = 2888-6) 22 mg/dL [facility] HospitalTroponin [id number] 12:49:00* Test Item Value Reference Range Interpretation Comme nts TROPONIN I (test code = 0904528317) 0.078 ng/mL See_Comment H [Automated message] The [...] biotin. ? Lab Interpretation (test code = 49521-9) [facility] (NA, K, CL, CO2, GLUCOSE, BUN, CREATININE, CA)2019-09-05 12:38:00* Test Item Value Reference Range Interpretation Comme nts NA (test code = 7893358724) 135 mmol/L 135-145 K (test code = 7495396589) 3.7 mmol/L 3.5-5 CL (test code = 6255812662) 106 mmol/L 98-108 CO2 TOTAL (test code = 3218769626) 25 mmol/L 23-31 AGAP (test code = 2697372028) 2-16 BUN (test code = 0220601294) 29 mg/dL 7-23 H GLUCOSE (test code = 1273639180) 89 mg/dL 70-110 CREATININE (test code = 3844917388) 2.10 mg/dL 0.6-1.25 H CALCIUM (test code = 6389833568) 8.7 mg/dL 8.6-10.6 eGFR Calculation (Non-) (test code = 9739225882) mL/min/1.73m2 eGFR Calculation () (test code = 4646969835) mL/min/1.73m2 VLAD (test code = VLAD) Association [...] imaging tests). Lab Interpretation (test code = 86761-7) [facility]normal [facility] HospitalaPTT2020-07-24 12:17:00* Test Item Value Reference Range Interpretation Comme [facility] APTT Patient (test code = 3173-2) See_Comment H [Automated message] The system which generated this result transmitted reference range: 23 - 38 Seconds. The reference range was not used to interpret this result as normal/abnormal. VLAD (test code = VLAD) The [facility] patient population mean normal value for aPTT is 30 seconds. Lab Interpretation (test code = 14754-4) Abnormal [facility]2020-07-24 05:50:00* Test Item Value Reference Range Interpretation Comme [facility] APTT Patient (test code = 3173-2) See_Comment [Automated message] The system which generated this result transmitted reference range: 23 - 38 Seconds. The reference range was not used to interpret this result as normal/abnormal. VLAD (test code = VLAD) The [facility] patient population mean normal value for aPTT is 30 seconds. Lab Interpretation (test code = 01772-7) Normal [facility] HospitalTroponin [id number] 05:10:00* Test Item Value Reference Range Interpretation Comme [facility] TROPONIN I (test code = 0547835404) 0.073 ng/mL See_Comment H [Automated message] The [...] biotin. ? Lab Interpretation (test code = 42786-8) Abnormal [facility] HospitalThyroid Stimulating Hormone (TSH)2019-09-05 00:14:00* Test Item Value Reference Range Interpretation Comme nts TSH (test code = 1181640492) See_Comment Biotin has been reported to cause a negative bias, interpret results relative to patient's use of biotin. [Automated message] The system which generated this result transmitted reference range: 0.45 - 4.70 mIU/L. The reference range was not used to interpret this result as normal/abnormal. Lab Interpretation (test code = 11476-0) Normal [facility] HospitalCOVID-19 (ID NOW RAPID TESTING)2019-09-04 23:15:00* Test Item Value Reference Range Interpretation Comme nts SARS-CoV-2 Rapid ID NOW (test code = 31877-9) Positive Not Detected A VLAD (test code = VLAD) ID NOW COVID-19 As say is an isothermal nucleic acid amplification test intended for the qualitative detection of nucleic acid from SARS-CoV-2 viral RNA in nasopharyngeal (PUBLIC INFORMATION OFFICER) specimens. It is used under Emergency [...] clinically indicated. Lab Interpretation (test code = 81894-6) Abnormal [facility] HospitalCT ANGIOGRAM [id number] 21:39:59HISTORY: Aortic disease TECHNIQUE: Initially noncontrast enhanced [...] output for next 24 to 48 hours. [facility], Radiant Results Inft User - 09/04/2019 [...] urine output for next 24 to 48 hours.[facility] HospitalCT HEAD WO [id number] 21:21:10No acute intracranial hemorrhage or mass effect. [...] couldrelate to chronic small vessel ischemia. The last-white matterdifferentiation is preserved. Left inferior basal ganglia [...] hypodensities couldrelate tochronic small vessel ischemia. The last-white matterdifferentiation is preserved. Left inferior basal ganglia [...] reviewed this study and agree with theabove report.[facility] HospitalURINALYSIS2020-07-23 20:40:00 * Test Item Value Reference Range Interpretation Comme nts APPEARANCE (test code = 6488032463) Clear Clear COLOR (test code = 6904491074) Yellow Yellow PH (test code = 3234562186) 4.8-8.0 SP GRAVITY (test code = 7080258999) 1.003-1.030 GLU U QUAL (test code = 9083836734) 50 mg/dL Normal A BLOOD (test code = 9004379640) 2+ Negative A KETONES (test code = 9565015666) Negative Negative PROTEIN (test code = 2887-8) 100 mg/dL Negative A UROBILIN (test code = 7196617961) 2.0 mg/dL Normal A BILIRUBIN (test code = 7197315631) Negative Negative NITRITE (test code = 0386637811) Negative Negative LEUK BING (test code = 0213887893) Negative Negative RBC/HPF (test code = 4744323527) See_Comment H [Automated messa ge] The system which generated this result transmitted reference range: 0 - 3 HPF. The reference range was not used to interpret this result as normal/abnormal. WBC/HPF (test code = 1223351688) See_Comment [Automated messa ge] The system which generated this result transmitted reference range: 0 - 5 HPF. The reference range was not used to interpret this result as normal/abnormal. BACTERIA (test code = 9281489193) Negative Negative MUCOUS (test code = 1725675347) Slight Negative LPF A SQ EPITH (test code = 3641284721) HPF HYAL CAST (test code = 6567584058) See_Comment [Automated messa ge] The system which generated this result transmitted reference range: <=2 LPF. The reference range was not used to interpret this result as normal/abnormal. Lab Interpretation (test code = 40412-0) Abnormal [facility] HospitalGLYCOSYLATED HEMOGLOBIN (A1C)2019-09-04 20:32:00* Test Item Value Reference Range Interpretation Comme nts HGB A1C (test code = 4548-4) 5.9 % 4-6 VLAD (test code = VLAD) %A1C (NGSP) Interpretation (ADA)4.8-5.6 ? ? Normal or (Non-Diabetic Range)5.7-6.4 ? ? Increased Risk (Pre-Diabetic)>6.5 ?Diabetes Indicated Lab Interpretation (test code = 43684-7) Normal [facility] HospitalADC / [facility] - DRUG SCREEN [id number] 20:27:00* Test Item Value Reference Range Interpretation Comme nts BENZO U (test code = 8777609620) Negative Negative NICOLASA U (test code = 7210426282) Negative Negative AMPHET (test code = 9226472934) Negative Negative THC (test code = 1007600335) Negative Negative METHADONE (test code = 7983859445) Negative Negative Meth U (test code = 2442000982) Negative Negative OPIATES (test code = 5229927074) Negative Negative Cocaine Metabolite (test code = 6170698896) Presumptive Positive Negative A PROPOXY (test code = 0388624592) Negative Negative Tric U (test code = 2502246894) Negative Negative PCP (test code = 7019794434) Negative Negative OXYCOD (test code = 9889909343) Negative Negative VLAD (test code = VLAD) [...] legal testing). Lab Interpretation (test code = 93843-4) Abnormal [facility] HospitalTONYFORMERLY [facility]NOEL [id number] 20:10:00* Test Item Value Reference Range Interpretation Comme nts TROPONIN I (test code = 0986794058) 0.076 ng/mL See_Comment H [Automated message] The [...] biotin. ? Lab Interpretation (test code = 96580-1) Abnormal [facility] HospitalLIPID PANEL (82091)(TOTAL CHOLESTEROL, TRIGLYCERIDES, HDL)2019-09-04 20:00:00* Test Item Value Reference Range Interpretation Comme nts CHOL (test code = 1000130061) 167 mg/dL 120-200 HDL (test code = 2371298780) 48 mg/dL >40 HDLC RATIO (test code = 6801759874) See_Comment [SocialBro] The system which generated this result transmitted reference range: <=5.0. The reference range was not used to interpret this result as normal/abnormal. TRIG (test code = 0416741052) 140 mg/dL 30-170 LDL CHOL (test code = 43626-1) 91 mg/dL See_Comment [SocialBro] The system which generated this result transmitted reference range: <=160. The reference range was not used to interpret this result as normal/abnormal. VLDL (test code = 1019689592) 28 mg/dL 5-60 Lab Interpretation (test code = 24439-9) Normal [facility] HospitalCOMP. METABOLIC PANEL (60326)2019-09-04 19:59:00* Test Item Value Reference Range Interpretation Comme nts NA (test code = 0477165994) 140 mmol/L 135-145 K (test code = 0494637208) 3.6 mmol/L 3.5-5 CL (test code = 5528309180) 105 mmol/L 98-108 CO2 TOTAL (test code = 3310024138) 26 mmol/L 23-31 AGAP (test code = 3479064979) 2-16 BUN (test code = 7553275143) 31 mg/dL 7-23 H GLUCOSE (test code = 9612976113) 137 mg/dL 70-110 H CREATININE (test code = 0979129822) 2.47 mg/dL 0.6-1.25 H TOTAL BILI (test code = 2491136824) 0.6 mg/dL 0.1-1.1 CALCIUM (test code = 5692439568) 9.4 mg/dL 8.6-10.6 T PROTEIN (test code = 4259016533) 7.7 g/dL 6.3-8.2 ALBUMIN (test code = 6071471023) 4.1 g/dL 3.5-5 ALK PHOS (test code = 3307176233) 77 U/L 34-122 ALTv (test code = 1742-6) 17 U/L 5-50 AST(SGOT) (test code = 6660992882) 28 U/L 13-40 eGFR Calculation (Non-) (test code = 8987730184) mL/min/1.73m2 eGFR Calculation () (test code = 2354226460) mL/min/1.73m2 VLAD (test code = VLAD) Association [...] imaging tests). Lab Interpretation (test code = 34514-0) Abnormal [facility] WITH [id number] 19:44:00* Test Item Value Reference Range Interpretation Comme nts WBC (test code = 6690-2) See_Comment [Automated Pocket Gemsa ge] The system which generated this result transmitted reference range: 4.20 - 10.70 10*3/?L. The reference range was not used to interpret this result as normal/abnormal. RBC (test code = 789-8) See_Comment [Automated [employer] Gems[employer] ge] The system which generated this result [...] 32.7 g/dL 31.2-35 RDW-SD (test code = 05106-8) 42.6 fL 38.5-51.6 RDW-CV (test code = 788-0) 13.5 % 12.1-15.4 PLT (test code = 777-3) See_Comment [Automated [employer]ocket Gems[employer] ge] The system which generated this result transmitted reference range: 150 - 328 10*3/?L. The reference range was not used to interpret this result as normal/abnormal. MPV (test code = 26721-2) 10.8 fL 9.8-13 NRBC/100 WBC (test code = 9243061715) See_Comment [Automated AppTrigger ssage] The system which generated this result transmitted reference range: 0.0 - 10.0 /100 WBCs. The reference range was not used to interpret this result as normal/abnormal. NRBC x10^3 (test code = 9309829544) <0.01 See_Comment [Automated me ssage] The system which generated this result transmitted reference range: 10*3/?L. The reference range was not used to interpret this result as normal/abnormal. GRAN MAT (NEUT) % (test code = 770-8) 52.7 % IMM GRAN % (test code = 6505367539) 0.40 % LYMPH % (test code = 736-9) 32.6 % MONO % (test code = 5905-5) 10.4 % EOS % (test code = 713-8) 3.3 % BASO % (test code = 706-2) 0.6 % GRAN MAT x10^3(ANC) (test code = 6223846736) 2.70 10*3/uL 1.99-6.95 IMM GRAN x10^3 (test code = 1348419610) <0.03 0-0.06 LYMPH x10^3 (test code = 731-0) 1.67 10*3/uL 1.09-3.23 MONO x10^3 (test code = 742-7) 0.53 10*3/uL 0.36-1.02 EOS x10^3 (test code = 711-2) 0.17 10*3/uL 0.06-0.53 BASO x10^3 (test code = 704-7) 0.03 10*3/uL 0.01-0.09 [facility] Consult Notes Date/Time Note Provider Source 2022-10-24 16:56:44 Associated Order(s): CONSULT CARDIOLOGY [facility] Cardiology Consult Note Patient: Zander Melvin Date of : 1960 Date of service: 10/24/2022 Primary Care Physician: PATIENT DOES NOT HAVE A PCP CHIEF COMPLAINT: Chief Complaint Patient presents with GROWTH HISTORY OF PRESENT ILLNESS: Zander Melvin is a 61 year old male presented to the ER for evaluation for skin growth on the left side of the face along with elevated blood pressure. History from patient. Pertinent cardiac related history reviewed from chart Patient reports he ran out of meds 2 weeks ago. He has not taken any blood pressure medicine for the last 2 weeks. ARZATE NYHA class II noted. No worsening ARZATE elicited. No new chest pain history noted. Not established care with nephrology or cardiology team. Unsure regarding the PCP. No chest pain at rest. No PND or orthopnea. No pedal edema. No exertional palpitations or palpitations at rest. No syncopal attacks. Unsure regarding the exact blood pressure medicine he has been taking. Previous Cardiac Studies: IMAGING - I personally reviewed, pertinent results as below: EKG dated 10/24/2022 reviewed shows sinus bradycardia, narrow QRS complex, LVH pattern noted, nonspecific ST-T changes. Echocardiogram dated 06/06/2021 reviewed shows moderate LVH, hyperdynamic LV, normal RV size and function, insufficient TR jet, no significant valve abnormalities noted. Renal artery ultrasound dated 06/06/2021 reviewed shows no significant renal artery disease noted. PAST MEDICAL HISTORY Past Medical History: Diagnosis Date CAD (coronary artery disease) CKD (chronic kidney disease) stage 2, GFR 60-89 ml/min HTN (hypertension) MD (myocardial infarction) Other hyperlipidemia S/P arterial stent Past Surgical History: Procedure Laterality Date DEBRIDEMENT LOWER EXTREMITY (SHX) Left 07/15/2022 Surgeon: Chela Treviño MD; [place] [facility] [place] Family History Problem Relation Age of Onset Breast Cancer Mother Diabetes Brother SOCIAL HISTORY Social History Socioeconomic History Marital status: Single Number [...] Unstable Housing in the Last Year: No ALLERGIES No Known Allergies MEDICATIONS Current Discharge Medication List STOP taking these medications [...] 81 mg, 81 mg, Oral, DAILY, Moe Valeljo MD, 81 mg at 10/24/22 1505 heparin [...] mg, Slow IV Push, Q6HPRN, Moe Vallejo MD REVIEW OF SYSTEMS: Comprehensive 10-system review was conducted and were negative except for what's noted in the HPI. The following systems were reviewed: Constitutional, cardiovascular, respiratory, gastrointestinal, genitourinary, musculoskeletal, neurologic, psychiatric, endocrinological, and hematological. PHYSICAL EXAMINATION: Vitals: 10/24/22 1320 10/24/22 1322 10/24/22 1617 10/24/22 1618 BP: (!) 199/110 (!) 167/101 (!) 151/91 Pulse: (!) 47 52 56 Resp: 17 18 Temp: 36.2 ?C (97.2 ?F) 36.6 ?C (97.8 ?F) TempSrc: Temporal Artery Temporal Artery SpO2: 100% 98% Weight: 104 kg (229 lb 3.2 oz) Height: 1.803 m (5' 11") General: no apparent distress HEENT: normocephalic atraumatic Neck: supple, no lymphadenopathy, no bruits, no JVD Lungs: clear to auscultation bilaterally. No wheezes or rhonchi. No increased work of breathing. Cardio: Regular rate and rhythm, S1&S2 normal, no murmurs, rubs or gallops Abdomen: soft; non-tender; non-distended; normoactive bowel sounds. : not examined Rectal: not examined Extremities: no clubbing, cyanosis, or edema. Skin: no rashes, no visible lesions. Neuro: no gross focal deficits LABS - Reviewed pertinent labs as below: CBC BMP PT/INR WBC (10*3/?L) Date Value 10/24/2022 [...] (mg/dL) Date Value 07/15/2022 85 Recent Labs 10/24/22 1022 TROPNI 0.057* Recent Labs 07/15/22 0508 TRIG 64 LDL CHOL (mg/dL) Date Value 07/15/2022 85 NT-proBNP (pg/mL) Date Value 06/04/2021 989 (H) ASSESSMENT/PLAN Principal Problem: Hypertensive emergency Active Problems: Elevated troponin Essential hypertension Stage 3 chronic kidney disease Hypertensive urgency Acute renal failure superimposed on stage 3 chronic kidney disease Coronary artery disease involving kasaan coronary artery of kasaan heart without angina pectoris PAD (peripheral artery disease) Elevated brain natriuretic peptide (BNP) level Hypertensive urgency: Per patient patient ran out of blood pressure medications 2 weeks ago. He has not received it yet. Elevated blood pressure at the time of the ER visit noted. Currently improving. Chart reviewed. The discharge summary dated 07/2022 reviewed. Will recommend restarting the blood pressure medications as per the recent discharge summary. Unsure regarding the current medication that he has been taking at home. At the time discharge, patient was noted to be on amlodipine 10 mg daily, carvedilol 12.5 twice daily, hydralazine 100 3 times daily, aspirin 81 daily. Losartan was stopped due to worsening creatinine. We will consider restarting the blood pressure medications similar to before. Based upon the numbers, we can further dose adjust. If need arises we can change amlodipine to Procardia XL for better blood pressure control. We can consider terazosin if needed. EKG dated 10/24/2022 reviewed shows sinus bradycardia, narrow QRS complex, LVH pattern noted, nonspecific ST-T changes. Echocardiogram dated 06/06/2021 reviewed shows moderate LVH, hyperdynamic LV, normal RV size and function, insufficient TR jet, no significant valve abnormalities noted. Renal artery ultrasound dated 06/06/2021 reviewed shows no significant renal artery disease noted. Troponin elevation: likely type 2 MD due to hypertensive urgency/CKD. Continue ASA 81 daily. Denies history of any chest pain or any worsening shortness of breath. No indications for ACS. Recommended serial troponins x2. Continue telemetry monitoring. Recent Labs 10/24/22 1022 TROPNI 0.057* Acute on CKD 3: The setting of underlying uncontrolled hypertension. Recommended nephrology evaluation. Strongly recommended to establish care with nephrology team due to worsening creatinine. H/o MD/questionable CAD: Consider ASA and statins. Continue with carvedilol 12.5 twice daily. H/o PAD s/p intervention: consider ASA and statins. BNP elevation: Hypertensive heart disease Elevated NT-proBNP in the setting of underlying worsening CKD. NT-proBNP (pg/mL) Date Value 06/04/2021 989 (H) Dyslipidemia: Recommended goal LDL less than 70 in the setting of underlying history of PAD. Recommended starting Lipitor 40 mg daily. My diagnostic impression and treatment plans were discussed at length with the patient. Thank you for allowing us to participate in the care of Zander Melvin. If you have any questions or concerns please feel free to call our office at [phone]. I would be happy to be of further assistance for Zander Melvin wellbeing. Voice recognition software has been used to create portions of this document. An attempt to proofread has been made to minimize errors. Please do not hesitate to call with any questions. Binu Lopez MD Operator/Assistant Foreman, Division of Cardiology [facility] - Health History and Physical Notes Date/Time Note Provider Source 2023-11-29 06:48:21 H&P Update 11/29/2023 I have seen and examined the patient. There have been no interval changes in the history or physical exam since the last clinic visit. The last clinic note is current and has been linked below. The surgical plan is for a left upper extremity angiogram with possible intervention and possible fistula revision. The patient was marked in the pre operative area. He last underwent dialysis Sunday. The consent is located in the chart and is current. Gerri Gonzalez DO General Surgery PGY-4 Associated attestation - Real Robert MD - 11/29/2023 7:30 AM CDT I personally examined the patient on 11/29/2023 and agree with Gerri Gonzalez DO resident note as written . I actively participated in the decision-making process. Please see the resident's note for additional details. Real Robert MD, VI, FSVS Vascular Surgery PGY18 Source Note - Real Robert MD - 11/15/2023 4:45 PM CDT Vascular Surgery Clinic Note Date of Service: 11/15/2023 HISTORY OF PRESENT ILLNESS: 63 year old male with end-stage renal disease. He is currently dialyzed using a tunneled hemodialysis catheter. He has a transposed left basilic forearm arteriovenous fistula. It was successfully used twice. This last time when he went in they were unable to use it and noted very high pressures. PAST MEDICAL HISTORY: Past Medical History: Diagnosis Date CAD (coronary artery disease) CKD (chronic kidney disease) stage 2, GFR 60-89 ml/min HTN (hypertension) MD (myocardial infarction) Other hyperlipidemia S/P arterial stent Past Surgical History: Procedure Laterality Date ARTERIOVENOUS FISTULA CREATION Left 08/28/2023 Surgeon: Real Robert MD; Location: [facility] OR LOCATION DEBRIDEMENT LOWER EXTREMITY (SHX) Left 07/15/2022 Surgeon: Chela Treviño MD; Location: [facility] OR LOCATION Medications: Home Medications: Current Outpatient Medications on File Prior to Visit Medication Sig Dispense Refill acetaminophen (TYLENOL EXTRA STRENGTH) 500 mg tablet Take 1 tablet by mouth every 6 (six) hours as needed for Pain. cloNIDine 0.1 mg tablet Take 1 tablet by mouth as needed. folic acid/vit B complex and C (NEPHRO-EDGARDO ORAL) Take by mouth. furosemide 40 mg tablet Take 1 tablet by mouth in the morning. losartan 50 mg tablet Take 1 tablet by mouth in the morning. amLODIPine 10 mg tablet Take 1 tablet by mouth in the morning. carvediloL (COREG) 12.5 mg tablet Take 1 tablet by mouth in the morning and 1 tablet in the evening. Take with meals. hydrALAZINE 100 mg tablet Take 1 tablet by mouth in the morning and 1 tablet at noon and 1 tablet in the evening. aspirin 81 mg chewable tablet Take 1 tablet by mouth daily. 30 tablet 6 meclizine 12.5 mg tablet Take 1 tablet by mouth 3 (three) times daily as needed for Dizziness. 30 tablet 0 No current facility-administered medications on file prior to visit. Social History Socioeconomic History Marital status: Single Number of children: 3 Highest education level: GED or equivalent Occupational History Occupation: disability Tobacco Use Smoking status: Some Days Current packs/day: 0.25 Types: Cigarettes Passive exposure: Past Smokeless tobacco: Never Substance and Sexual Activity Alcohol use: Not Currently Social Determinants of Health Financial Resource Strain: Low Risk (10/26/2022) Overall Financial Resource Strain (CARDIA) Difficulty of Paying Living Expenses: Not hard at all Food Insecurity: No Food Insecurity (10/26/2022) Hunger Vital Sign Worried About Running Out of Food in the Last Year: Never true Ran Out of Food in the Last Year: Never true Transportation Needs: No Transportation Needs (10/26/2022) PRAPARE - Transportation Lack of Transportation (Medical): No Lack of Transportation (Non-Medical): No Physical Activity: Insufficiently Active (10/26/2022) Exercise Vital Sign Days of Exercise per Week: 3 days Minutes of Exercise per Session: 10 min Social Connections: Unknown (10/26/2022) Social Connection and Isolation Panel [NHANES] Frequency of Communication with Friends and Family: More than three times a week Marital Status: Never Housing Stability: Low Risk (10/26/2022) Housing Stability Vital Sign Unable to Pay for Housing in the Last Year: No Number of Places Lived in the Last Year: 1 Unstable Housing in the Last Year: No Family History Problem Relation Age of Onset Breast Cancer Mother Diabetes Brother Allergies: No Known Allergies Make sure patient is not allergic to Contrast (Iodine): No Physical Exam: BP (!) 159/88 | Pulse 86 | Temp 37.1 ?C (98.7 ?F) | Resp 20 | Ht 5' 11" (1.803 m) | Wt 238 lb (108 kg) | SpO2 97% | BMI 33.19 kg/m? No acute distress. Alert oriented and cooperative. Chest is clear to auscultation bilaterally Heart regular rate and rhythm Left upper extremity fistula is pulsatile in nature. Still maintains flow throughout on exam. Hand is neurovascularly intact Bedside duplex by myself today shows fistula with flow throughout. There are areas of stenosis noted around the elbow. This may be from compression. Labs: CBC BMP LIPID PANEL WBC (10*3/?L) Date Value 03/10/2023 4.32 NA (mmol/L) Date Value 03/10/2023 140 CHOL (mg/dL) Date Value 10/24/2022 161 MCV (fL) Date Value 03/10/2023 87.5 K (mmol/L) Date Value 08/28/2023 4.7 LDL CHOL (mg/dL) Date Value 10/24/2022 93 PLT (10*3/?L) Date Value 03/10/2023 153 CL (mmol/L) Date Value 03/10/2023 109 (H) HDL (mg/dL) Date Value 10/24/2022 51 HGB (g/dL) Date Value 03/10/2023 10.1 (L) CO2 TOTAL (mmol/L) Date Value 03/10/2023 24 TRIG (mg/dL) Date Value 10/24/2022 86 HCT (%) Date Value 03/10/2023 31.4 (L) BUN (mg/dL) Date Value 03/10/2023 66 (H) aPTT CREATININE (mg/dL) Date Value 03/10/2023 6.26 (H) APTT Patient (Seconds) Date Value 06/04/2021 27 TYPE AND SCREEN GLUCOSE (mg/dL) Date Value 03/10/2023 112 (H) PT/INR No results found for: "TSABINT" CALCIUM (mg/dL) Date Value 03/10/2023 9.0 No results found for: "PT" INR (no units) Date Value 06/04/2021 1.0 Diagnosis: End-stage renal disease with arteriovenous fistula malfunction Assessment/Plan Problem #1 -recommend proceeding with fistulogram with possible intervention. Will schedule in [place]. [facility] 2023-08-28 08:06:37 VASCULAR SURGERY - H&P NOTE Date of Admission: 08/28/2023 Date of Service: 08/28/2023 CC: ESRD, technician terminal and repeater dialysis access HPI Boissevain Freedom Melvin is a 62 year old male patient with PMHx of HTN, previous stroke with no residual deficits, ESRD secondary to HTN on HD through [facility] permacat tue/thur/sat. No issues with current access. Referred to vascular surgery for AVF creation. He is right handed. Has never had any vascular procedures done. Denies weakness or numbness on LUE. No hx of cardiac arrhythmias or CAD. No DM. Does not take any blood thinners. Denies smoking. Lives with his brother. Independent and does all of his daily activities on his own History of AAA: denied History of CVA: states he had a stroke couple of years ago but has no residual deficits Prior DVT/PE: denied Claudication:denied. Walks with a cane because he has bl knee arthropathy Vascular Surgery Procedures: RIJ permacath ROS See HPI PMH Past Medical History: Diagnosis Date CAD (coronary artery disease) CKD (chronic kidney disease) stage 2, GFR 60-89 ml/min HTN (hypertension) MD (myocardial infarction) Other hyperlipidemia S/P arterial stent PAST SURGICAL HISTORY Past Surgical History: Procedure Laterality Date DEBRIDEMENT LOWER EXTREMITY (SHX) Left 07/15/2022 Surgeon: Chela Treviño MD; Location: [facility] MEDICATIONS No current facility-administered medications on file prior to encounter. Current Outpatient Medications on File Prior to Encounter Medication Sig Dispense Refill cloNIDine 0.1 mg tablet Take 1 tablet by mouth as needed. folic acid/vit B complex and C (NEPHRO-EDGARDO ORAL) Take by mouth. furosemide 40 mg tablet Take 1 tablet by mouth in the morning. losartan 50 mg tablet Take 1 tablet by mouth in the morning. amLODIPine 10 mg tablet Take 1 tablet by mouth in the morning. carvediloL (COREG) 12.5 mg tablet Take 1 tablet by mouth in the morning and 1 tablet in the evening. Take with meals. hydrALAZINE 100 mg tablet Take 1 tablet by mouth in the morning and 1 tablet at noon and 1 tablet in the evening. aspirin 81 mg chewable tablet Take 1 tablet by mouth daily. 30 tablet 6 meclizine 12.5 mg tablet Take 1 tablet by mouth 3 (three) times daily as needed for Dizziness. 30 tablet 0 SOCIAL HISTORY reports that he has been smoking cigarettes. He has been exposed to tobacco smoke. He has never used smokeless tobacco. He reports that he does not currently use alcohol. FAMILY HISTORY family history includes Breast Cancer in his mother; Diabetes in his brother. ALLERGIES No Known Allergies PHYSICAL EXAM Temp: [36.4 ?C (97.5 ?F)] Pulse: [59] Resp: [19] BP: (166)/(99) Constitutional: in no acute distress Cardiovascular: regular rate Respiratory: normal effort, symmetrical chest rise Abdomen: soft, non-distended Extremities: LUE palpable radial pulse RIJ permacath with no signs of infection Neurologic: no focal deficits Psychiatric: appropriate insight, affect, and judgment LABS Hemogram No results for input(s): "WBC", "HGB", "HCT", "PLT" in the last 72 hours. Chemistry No results for input(s): "NA", "K", "CL", "TCO2", "BUN", "CREAT", "GLU", "PHOS", "MG", "CA", "CAIONIZ" in the last 72 hours. Arterial Blood Gas No results for input(s): "ACPH", "ACPCO2", "ACPO2", "ACHCO3", "ACNA", "ACK", "ACCAIONZ", "ACBE" in the last 72 hours. Coagulation Profile No results for input(s): "PTPAT", "PTINR", "APTTMNNM", "APTTPAT" in the last 72 hours. Urinalysis No results for input(s): "UPROTEIN", "UGLUCOSE", "UKETONES", "UBILI", "UBLOOD", "UUROBILIN", "ULEUKEST", "UNITRITE", "USPGRAV" in the last 72 hours. LFTs No results for input(s): "AST", "ALT", "ALKPHOS", "CLARIBEL", "LIPASE", "BILIT", "BILICONJ", "BILIUNCON" in the last 72 hours. IMAGING No final results containing an impression from the past 48 hours were found. VASCULAR LABS No new labs ASSESSMENT/PLAN Zander Melvin is a 62 year old male patient with ESRD secondary to HTN. Has been using RIJ permcath for HD. Plan for LUE AVF creation today. Patient seen and examined with Dr. Robert. All questions and concerns were addressed. Fab Reis MD Vascular Surgery PGY 2 To contact Vascular: Please page service pager Service Pager #: [phone] Associated attestation - Real Robert MD - 08/28/2023 8:36 AM CDT I personally examined the patient on 08/28/2023 and agree with Fab Dubois MD resident note as written . I actively participated in the decision-making process. Please see the resident's note for additional details. Real Robert MD, RPVI, FSVS Vascular Surgery PGY18 [facility] 2022-10-24 20:27:09 Formatting of this n ote is different from the original. [facility] Hospitalist Admission H&P Date of Service: 10/24/2022 CHIEF COMPLAINT: Uncontrolled hypertension HISTORY OF PRESENT ILLNESS Zander Melvin is a 61 year old male [...] should follow-up with an ENT or a coal cutter. This needs to be removed and pathology needs to be completed. Patient lives in [place], [place]. ENT available in the local area he should follow-up as soon as possible. PAST MEDICAL HISTORY Past Medical History: Diagnosis Date CAD (coronary artery disease) CKD (chronic kidney disease) stage 2, GFR 60-89 ml/min HTN (hypertension) MD (myocardial infarction) Other hyperlipidemia S/P arterial stent PAST SURGICAL HISTORY Past Surgical History: Procedure Laterality Date DEBRIDEMENT LOWER EXTREMITY (SHX) Left 07/15/2022 Surgeon: Chela Treviño MD; [place] [facility] [place]ERGIES No Known Allergies MEDICATIONS Current home medication list reviewed: Current Discharge Medication List STOP taking these medications amLODIPine 10 mg tablet Comments: Reason for Stopping: carvediloL (COREG) 12.5 mg tablet Comments: Reason for Stopping: hydrALAZINE 100 mg tablet Comments: Reason for Stopping: povidone-iodine 10 % solution Comments: Reason for Stopping: aspirin 81 mg chewable tablet Comments: Reason for Stopping: meclizine 12.5 mg tablet Comments: Reason for Stopping: FAMILY HISTORY Family History Problem Relation Age of Onset Breast Cancer Mother Diabetes Brother SOCIAL HISTORY Social History Socioeconomic History Marital status: Single Number [...] in the Last Year: No REVIEW OF SYSTEMS 10 systems negative except per HPI PHYSICAL EXAMINATION BP (!) 174/100 | Pulse 58 | Temp 36.8 ?C (98.3 ?F) | Resp 18 | Ht 1.803 m (5' 11") | Wt 104 kg (229 lb 3.2 oz) | SpO2 99% | BMI 31.97 kg/m? General: No acute distress HEENT: Normal oral mucosa, anicteric sclerae, NCAT; tumor that is protruding from the left side of the face Cardiovascular: RRR Lungs: Symmetric expansion, CTAB Abdomen: Soft, NTND Musculoskeletal: No synovitis, normal muscle mass Genitourinary: Normal Skin: No rash, lesions Neuro: AAOx3, no focal deficits Psych: Normal affect LABS - reviewed pertinent labs as below: CBC BMP PT/INR WBC (10*3/?L) Date Value 10/24/2022 [...] No results found for this visit on 10/24/22. ASSESSMENT: 1. Hypertensive urgency 2. History of coronary artery disease 3. History of chronic kidney disease 4. Facial mass PLAN: 1. Hypertensive urgency; patient ran out of his medications. Patient's blood pressure was uncontrolled. We restarted his antihypertensives. Patient blood pressure is much better controlled. Echocardiogram and cardiology consultation pending. Patient blood pressure is well controlled and no more chest pain patient should be able to discharge in the morning. 2. History of coronary artery disease and chronic [...] pressure medications his renal function will remain stable. 3. Patient with facial mass; patient will need to follow-up with dermatology or ENT for excisional biopsy. This should be able to be done as an outpatient. At this time, patient clinically doing well and as long as patient's diagnostic studies are improved patient should be stable for discharge. DVT prophylaxis: enoxaparin Stress ulcer prophylaxis: pantoprazole Code status: FULL Advanced Care Planning (Z71.89) Above assessment and plan discussed at length with patient, patient expressed full understanding. Questions and concerned addressed. Surrogate decision maker: UNKNOWN Level of care expected after discharge: HOME Time spent: 2 minutes discussing the advanced care plan Smoking Cessation: (Z71.6) Tobacco user?: NO Patient will require observation [place] CARTON INSPECTOR was verified during stay Mauro Spears MD IM-INTERNAL MEDICINE STAFF [facility] Notes Date/Time Note Provider Source 2023-11-29 08:16:00 Vascular Surgery Operative Note Date of Service: 11/29/23 Patient Name: Zander Melvin Date of : 1960 Faculty Surgeon: Real Robert MD Resident Surgeon: Gerri Gonzalez DO Procedure: Left upper extremity arteriovenous fistula angiogram with angioplasty of peripheral circuit PREOPERATIVE DIAGNOSIS: End-stage renal disease Arteriovenous fistula malfunction POSTOPERATIVE DIAGNOSIS: End-stage renal disease Arteriovenous fistula malfunction Operative Narrative: Patient was taken from the preoperative the operating room placed in the supine position. He was sedated by the anesthesia team. Left upper extremity was circumferentially prepped and draped. Timeout was called to ensure proper patient proper operating site proper procedure. All members of the team were present in agreement with the proposed procedure at this time we commenced. Ultrasound used to visualize the arteriovenous fistula and an adequate access site was established in the distal forearm. Overlying skin was infiltrated with lidocaine. Under ultrasound guidance using a micro access kit the fistula was accessed in an antegrade manner. Guidewire advanced without difficulty. Microsheath advanced over a wire and connected to a three-way stopcock. Angiography was performed which demonstrated a segmental areas of high-grade stenosis in the fistula along the forearm all the way to the level of the elbow. Distally the fistula appeared widely patent. Decision for intervention was made. The micro sheath was exchanged for a 5 Iraqi sheath over an 035 Glidewire. An 018 advantage wire was advanced distally in the fistula. The areas of stenosis were then treated with a 6 x 60 angioplasty balloon. There were focal areas within the fistula that were resistant to angioplasty even with high pressure. The sheath was exchanged to a 6 Iraqi sheath and the areas of resistant stenosis were then attempted to be treated with conquest balloon. There was still resistant and focal areas to high-pressure angioplasty. At this point decision was made to stop. The fistula did have a better thrill at the completion of the procedure however there was still areas of stenosis present. A 3-0 Prolene was placed at the access site in a [id number] fashion and the sheath was pulled pressure was held and hemostasis was achieved. Dressing was applied and at this point procedure was complete. Patient tolerated the procedure and was taken to the recovery area in stable condition. All needle counts instrument counts sponge counts were correct. Anesthetic: Local with MAC Estimated Blood Loss: 10 mL Drains: None Specimens: None Implants: None Findings: Fistula with focal areas of high-grade stenosis present in the forearm. Partially treated with angioplasty. Complications: None apparent Plan: Follow-up clinic 2 weeks. Patient may need a repeat procedure with cutting balloons to treat remaining areas of stenosis. [facility] 2023-11-29 08:16:00 BRIEF OPERATIVE NOTE Date of Surgery: 11/29/2023 Surgeons and Role: * Real Robert MD - Primary * Gerri Gonzalez DO - Resident - Assisting Pre-Op Diagnosis: ESRD (end stage renal disease) [N18.6] Malfunction of arteriovenous dialysis fistula, initial encounter [T82.590A] Post-Op Diagnosis Codes: * ESRD (end stage renal disease) [N18.6] * Malfunction of arteriovenous dialysis fistula, initial encounter [T82.590A] Procedures: Procedure(s) (LRB): ANGIOGRAM VIA UPPER EXTREMITY ACCESS (Left) CPT: 64445 Any Complications Encounters: None Estimated Blood Loss: 20 cc Specimens Removed: * No specimens in log * * No implants in log * Patient's Condition: Good Findings: Left radio-basilic fistula with palpable thrill proximally and pulsatile at mid forearm Several areas of stenosis on fluoroscopy, angioplasty performed with some improvement Palpable thrill improved proximally post procedure Any other important information: Fistula not cleared for use. Continue to use tunneled dialysis catheter. Please see dictated operative report for additional detail. Gerri Gonzalez DO General Surgery PGY-4 [facility] 2023-11-19 15:36:59 Images from the original note were not included. Your procedure is at [facility] on 11/29/23. The address is [address] [place] [address], [id number]. [facility] nursing staff will call you the workday before your procedure to let you know what time to arrive.On the day of your procedure, please go inside that door and check in at the desk. Please note: You may not travel home alone and that includes in a taxi or by bus. We must speak to your Responsible Adult (who will be picking you up) the morning of your procedure, before the start of your procedure. This person must be an adult over the age of 18 years of age. Do not eat any solid food after midnight the night before surgery. You may have sips of clear liquids such as water, gatorade, and sprite up until two hours before your scheduled procedure. You may take your medications with a sip of water as directed by physician. Anticoagulants will be per physician guidance. Medication Note(s)/Instructions:Instruct ed to hold losartan day before and morning of procedure. Advised to take clonidine morning of procedure. Pending screening, we may test for COVID. If a patient tests positive, their cases are cancelled and/or rescheduled. COVID SCREENING NOTE: Denies COVID symptoms, no testing required. Advised patient will receive a call workday prior to surgery/procedure between 12-3 pm with arrival time. Additional requests, questions, concerns:CB number and availability provided. Patient verbalized understanding of pre-op instructions and voiced no further questions at this time. [facility] 2023-11-06 09:20:10 Images from the original note were not included. ЕЛЕНА note faxed to number provided Renata Red RN [facility] 2023-11-06 09:13:48 Zander Melvin is a 62 year old male [facility] with [facility] is requesting a letter of clearance to cannulate Please advise fax: [phone] call: [phone] Zaida Mariscal [facility] 2023-11-05 09:09:48 Access Center: [facility] Open Encounter Maintenance This is being sent to you as part of [employer] Chart Maintenance. The encounter has been open longer than 72 hours and has no documentation attached. Encounter closed. Tiana Hamilton RN [facility] 2023-10-25 14:32:32 Zander Melvin is a 62 year old male [facility] calling to speak with nurse or PUBLIC INFORMATION OFFICER Moustapha to discuss patients access sites. [phone] Rita Freddie Karin Mccormack [facility] 2023-10-11 13:00:00 Addended by: REAL ROBERT MD on: 10/15/2023 10:13 AM Modules accepted: Level of Service [facility]AR[facility]-VASCULAR SURGERY STAFF [facility] 2023-08-28 09:42:54 BRIEF OPERATIVE NOTE Date of Surgery: 08/28/2023 Surgeons and Role: * Real Robert MD - Primary * Luca Holley MD - Resident - Assisting * Fab Barry MD - Resident - Assisting * Liu Bishop MD - Resident - Assisting Pre-Op Diagnosis: ESRD (end stage renal disease) on dialysis [N18.6, Z99.2] Post-Op Diagnosis Codes: * ESRD (end stage renal disease) on dialysis [N18.6, Z99.2] Procedures: Procedure(s) (LRB): ARTERIOVENOUS FISTULA CREATION (Left) Radiobasilic CPT: 11689, 26500, 94635, Any Complications Encounters: None Estimated Blood Loss: 10cc Patient's Condition: Good Findings: Left cephalic vein small size on intraoperative ultrasound Left basilic vein large and good target. Left radial artery also good target Left radiobasilic AV fistula created Any other important information: No heavy lifting with left arm for 4 weeks postop Please see dictated operative report for additional detail. Luca Holley MD General Surgery PGY-4 [facility] 2023-08-28 07:43:00 Spoke with Maria Del Rosario from blood bank. Type and screen bracelet to the left wrist confirmed and verified. Nuria Najera RN [facility] 2023-08-27 15:30:00 Summary: BLOOD BANK PROCESS HAS BEGUN. sPECIMEN SENT TO BB Images from the original note were not included. Venipuncture collection performed by clean technique on the left anticubitus. Total of 1 attempts were made. Slight pressure and a bandage/dressing were applied to the site(s). The patient experienced no complications. The following specimens were processed according to instructions and sent to [facility] laboratories per lab order on 08/27/2023 : LT BLUE SST RED LAV 1 PPT DK GREEN (LiHep) DK GREEN (SodH) LAST DK BLUE (K2) DK BLUE (S) ACD Blood Culture NIPT/NTD [facility] 2023-03-10 19:00:00 Pt dc'd home ambulatory. Pt v/u of dc instructions. N Junior RN [facility] 2023-03-10 15:46:14 Sister states: " He was getting dialysis at [facility]. He had dialysis on . He doesn't have insurance. He has to go through the ER. We are applying for the medicare to be complete" N James RN [facility] 2023-03-10 15:41:00 EMERGENCY DEPARTMENT ENCOUNTER [facility] Patient Name: Zander Melvin Date of : 1960 62 year old Exam Room[facility] Primary Care Physician: PATIENT DOES NOT HAVE A PCP Pre- Hospital Patient Escorted by: Family [5] Mode of Arrival: Personal means [1] EMS Treatment Prior to ED Arrival: ED Events Date/Time Event User Comments 03/10/231628 Medical Screening Begins RASHEEDA RIOJAS MD -- 03/10/231628 First Provider Evaluation RASHEEDA RIOJAS MD -- Chief Complaint Chief Complaint Patient presents with Other Dialysis ED Triage Notes Tiana James RN 03/10/2023 15:50 Sister states: " He was getting dialysis at [facility]. He had dialysis on . He doesn't have insurance. He has to go through the ER. We are applying for the medicare to be complete" HPI History provided by: Patient Illness Location: Generalized Severity: Moderate Onset quality: Gradual Timing: Constant Chronicity: New Context: Pt would like to be evaluated for dialsysis. Currently on dialysis once per week Relieved by: Nothing Worsened by: Nothing Associated symptoms: no abdominal pain, no chest pain, no cough, no fatigue, no fever, no headaches, no nausea, no shortness of breath, no vomiting and no wheezing Past Medical History / Immunizations Past Medical History: Diagnosis Date CAD (coronary artery disease) CKD (chronic kidney disease) stage 2, GFR 60-89 ml/min HTN (hypertension) MD (myocardial infarction) Other hyperlipidemia S/P arterial stent Tetanus received in last 5 years: Yes Childhood immunizations: Up-to-date Past Surgical History Past Surgical History: Procedure Laterality Date DEBRIDEMENT LOWER EXTREMITY (SHX) Left 07/15/2022 Surgeon: Chela Treviño MD; [place] [facility] [place] Allergies No Known Allergies Social History Tobacco Use Some Days; 0.25 packs/day; Types: Cigarettes Passive Exposure: Past Smokeless Tobacco: Never used smokeless tobacco. Alcohol Use Not Currently. Review of Systems Review of Systems Constitutional: Negative. Negative for chills, fatigue, fever and unexpected weight change. HENT: Negative. Eyes: Negative. Negative for discharge and itching. Respiratory: Negative. Negative for cough, chest tightness, shortness of breath and wheezing. Cardiovascular: Negative. Negative for chest pain and palpitations. Gastrointestinal: Negative. Negative for abdominal distention, abdominal pain, nausea and vomiting. Genitourinary: Negative. Negative for dysuria, urgency, frequency and flank pain. Musculoskeletal: Negative. Skin: Negative. Negative for color change, pallor and wound. Neurological: Negative. Negative for dizziness, syncope, light-headedness and headaches. Psychiatric/Behavioral: Negative. Negative for agitation and behavioral problems. All other systems reviewed and are negative. Endocrine: Endocrine negative Physical Exam ED Triage Vitals [03/10/23 1550] Weight 102.1 kg (225 lb) Actual or estimated Estimated by patient/family report Height 1.803 m (5' 11") BP (!) 150/87 Pulse 63 Resp 16 Temp 37.1 ?C (98.8 ?F) Temp source Oral SpO2 100 % Measured on Room air Physical Exam Vitals reviewed. Constitutional: Appearance: He is well-developed. HENT: Head: Normocephalic. Nose: Nose normal. Eyes: Conjunctiva/sclera: Conjunctivae normal. Neck: Trachea: No tracheal deviation. Cardiovascular: Rate and Rhythm: Normal rate. Heart sounds: Murmur heard. No friction rub. Pulmonary: Effort: Pulmonary effort is normal. No respiratory distress. Breath sounds: Normal breath sounds. Abdominal: General: Bowel sounds are normal. There is no distension. Palpations: Abdomen is soft. Tenderness: There is no abdominal tenderness. There is no guarding or rebound. Musculoskeletal: General: Normal range of motion. Cervical back: Normal range of motion and neck supple. Skin: General: Skin is warm and dry. Neurological: Mental Status: He is alert and oriented to person, place, and time. Psychiatric: Behavior: Behavior normal. Labs Lab Results CBC WITH DIFF - Abnormal Result Value Ref Range WBC 4.32 4.20 - 10.70 10*3/?L RBC 3.59 (*) 4.26 - 5.52 10*6/?L HGB 10.1 (*) 12.2 - 16.4 g/dL HCT 31.4 (*) 38.4 - 49.3 % MCV 87.5 81.7 - 95.6 fL MCH 28.1 26.1 - 32.7 pg MCHC 32.2 31.2 - 35.0 g/dL RDW-SD 43.8 38.5 - 51.6 fL RDW-CV 13.7 12.1 - 15.4 % PLT 153 150 - 328 10*3/?L MPV 10.3 9.8 - 13.0 fL NRBC/100 WBC 0.0 0.0 - 10.0 /100 WBCs NRBC x10 3 <0.01 10*3/?L GRAN MAT (NEUT) % 46.8 % IMM GRAN % 0.00 % LYMPH % 40.5 % MONO % 8.3 % EOS % 3.7 % BASO % 0.7 % GRAN MAT x10 3 (ANC) 2.02 1.99 - 6.95 10*3/uL IMM GRAN x10 3 <0.03 0.00 - 0.06 10*3/uL LYMPH x10 3 1.75 1.09 - 3.23 10*3/uL MONO x10 3 0.36 0.36 - 1.02 10*3/uL EOS x10 3 0.16 0.06 - 0.53 10*3/uL BASO x10 3 0.03 0.01 - 0.09 10*3/uL COMP. METABOLIC PANEL (94090) - Abnormal NA 140 135 - 145 mmol/L K 4.6 3.5 - 5.0 mmol/L CL 109 (*) 98 - 108 mmol/L CO2 TOTAL 24 23 - 31 mmol/L AGAP 7 2 - 16 BUN 66 (*) 7 - 23 mg/dL GLUCOSE 112 (*) 70 - 110 mg/dL CREATININE 6.26 (*) 0.60 - 1.25 mg/dL TOTAL BILI 0.4 0.1 - 1.1 mg/dL CALCIUM 9.0 8.6 - 10.6 mg/dL T PROTEIN 7.2 6.3 - 8.2 g/dL ALBUMIN 3.8 3.5 - 5.0 g/dL ALK PHOS 64 34 - 122 U/L ALTv 28 5 - 50 U/L AST(SGOT) 27 13 - 40 U/L eGFR 9.4 mL/min/1.73m2 PHOSPHORUS - Abnormal PHOSPHORUS 5.1 (*) 2.5 - 5.0 mg/dL MAGNESIUM - Normal MAGNESIUM 2.0 1.7 - 2.4 mg/dL Imaging XR CHEST 1 VW Final Result ORDERING PROVIDER: RASHEEDA RIOJAS HISTORY: pulmonary edema TECHNIQUE: Frontal views of the Chest. COMPARISON: None IMPRESSION Right IJ line with tip in the SVC. Mild interstitial markings could be related to pulmonary edema. Elevation of the left hemidiaphragm. No pneumothorax or effusion. The cardiomediastinal silhouette is within normal limits. No visualized acute osseous abnormality. RL: [id number] END REPORT. Orders and Treatments Orders Placed This Encounter Procedures XR CHEST 1 VW CBC WITH DIFF COMP. METABOLIC PANEL (63587) Magnesium Phosphorus No orders of the defined types were placed in this encounter. Procedures Procedures Notes & MDM Patient was evaluated for an emergency medical condition related to Other (Dialysis ) Diagnosis/Impression as of 03/10/232035 ESRD (end stage renal disease) Medical Decision Making Problems Addressed: ESRD (end stage renal disease): acute illness or injury Amount and/or Complexity of Data Reviewed Labs: ordered. Decision-making details documented in ED Course. Radiology: ordered and independent interpretation performed. Decision-making details documented in ED Course. Independent Interpretation by ED physician: Limitations to patient care and compliance: none. 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 He was discharged to follow-up. He can return for any questions or needs. History, physical exam findings, results of visit, differential diagnosis, medication regimens and plan of future care have been considered. Additional MDM may be found in the ED course. Differential diagnosis considered and final disposition made based on information gathered during evaluation and may not be completely ruled out or specifically listed. Vital signs were rechecked before final disposition. Diagnosis Final diagnoses: [N18.6] ESRD (end stage renal disease) (Primary) Disposition & Follow Up ED Disposition ED Disposition Disch - Home Condition Stable Comment -- Patient's Medications START taking these medications No medications on file CONTINUE taking these medications which have NOT CHANGED AMLODIPINE 10 MG TABLET Take 1 tablet by mouth in the morning. ASPIRIN 81 MG CHEWABLE TABLET Take 1 tablet by mouth daily. CARVEDILOL (COREG) 12.5 MG TABLET Take 1 tablet by mouth in the morning and 1 tablet in the evening. Take with meals. HYDRALAZINE 100 MG TABLET Take 1 tablet by mouth in the morning and 1 tablet at noon and 1 tablet in the evening. MECLIZINE 12.5 MG TABLET Take 1 tablet by mouth 3 (three) times daily as needed for Dizziness. START taking Modified Medications as Prescribed No medications on file STOP taking these medications No medications on file Rasheeda Riojas Jr., MD Clinical Operator/Assistant Foreman [facility] Emergency Department [employer] Dictation Software is used frequently and may produce errors. Promptly contact for obvious discrepancies. aRsheeda Riojas MD 03/10/232037 TARY ANALYST [facility] 2022-10-30 14:35:31 Formatting of this n ote might be different from the original. ----- Message from Shauna Almeida sent at 10/30/2022 9:15 AM CDT ----- Regarding: RE: Follow up appt Called to schedule patient left a voicemail to call us back to schedule. ----- Message ----- From: Yohannes Lopez MD Sent: 10/27/2022 10:43 PM CDT To: [facility] Subject: Follow up appt Needs follow up with Dr Taylor in 3-4 weeks. [facility] 2022-10-27 18:34:22 Formatting of this n ote might be different from the original. Problem: Venous Thromboembolism, (actual or risk of) Goal: Absence of venous thromboembolism (Risk) Outcome: Adequate for discharge Problem: Pain Goal: Control of pain at or below patient's documented comfort goal Outcome: Adequate for discharge Goal: Reduction in pain sensation Outcome: Adequate for discharge Problem: Falls, Risk of Goal: Absence of falls Outcome: Adequate for discharge Problem: Discharge Planning Goal: Adequate for discharge Outcome: Adequate for discharge Goal: Effective communication Outcome: Adequate for discharge Delores Parsons RN [facility] 2022-10-27 14:35:18 Formatting of this n ote might be different from the original. Problem: Venous Thromboembolism, (actual or risk of) Goal: Absence of venous thromboembolism (Risk) Outcome: Progressing as expected Problem: Pain Goal: Control of pain at or below patient's documented comfort goal Outcome: Progressing as expected Goal: Reduction in pain sensation Outcome: Progressing as expected Problem: Falls, Risk of Goal: Absence of falls Outcome: Progressing as expected Problem: Discharge Planning Goal: Adequate for discharge Outcome: Progressing as expected Goal: Effective communication Outcome: Progressing as expected Fiordaliza Okeefe RN [facility] 2022-10-27 06:44:54 Formatting of this n ote might be different from the original. Problem: Venous Thromboembolism, (actual or risk of) Goal: Absence of venous thromboembolism (Risk) Outcome: Progressing as expected Problem: Pain Goal: Control of pain at or below patient's documented comfort goal Outcome: Progressing as expected Goal: Reduction in pain sensation Outcome: Progressing as expected Problem: Falls, Risk of Goal: Absence of falls Outcome: Progressing as expected Problem: Discharge Planning Goal: Adequate for discharge Outcome: Progressing as expected Goal: Effective communication Outcome: Progressing as expected Teresita Carrasquillo RN [facility] 2022-10-26 19:11:55 Formatting of this n ote might be different from the original. Problem: Venous Thromboembolism, (actual or risk of) Goal: Absence of venous thromboembolism (Risk) Outcome: Progressing as expected Problem: Pain Goal: Control of pain at or below patient's documented comfort goal Outcome: Progressing as expected Goal: Reduction in pain sensation Outcome: Progressing as expected Problem: Falls, Risk of Goal: Absence of falls Outcome: Progressing as expected Problem: Discharge Planning Goal: Adequate for discharge Outcome: Progressing as expected Goal: Effective communication Outcome: Progressing as expected Ayesha Oh RN [facility] 2022-10-26 01:15:33 Formatting of this n ote might be different from the original. Problem: Venous Thromboembolism, (actual or risk of) Goal: Absence of venous thromboembolism (Risk) Outcome: Progressing as expected Problem: Pain Goal: Control of pain at or below patient's documented comfort goal Outcome: Progressing as expected Goal: Reduction in pain sensation Outcome: Progressing as expected Problem: Falls, Risk of Goal: Absence of falls Outcome: Progressing as expected Problem: Discharge Planning Goal: Adequate for discharge Outcome: Progressing as expected Goal: Effective communication Outcome: Progressing as expected Shayla Royal RN [facility] 2022-10-25 02:00:19 Formatting of this n ote might be different from the original. Problem: Venous Thromboembolism, (actual or risk of) Goal: Absence of venous thromboembolism (Risk) Outcome: Progressing as expected Problem: Pain Goal: Control of pain at or below patient's documented comfort goal Outcome: Progressing as expected Goal: Reduction in pain sensation Outcome: Progressing as expected Problem: Falls, Risk of Goal: Absence of falls Outcome: Progressing as expected Problem: Discharge Planning Goal: Adequate for discharge Outcome: Progressing as expected Goal: Effective communication Outcome: Progressing as expected T [facility] 2022-10-24 18:42:16 Formatting of this n ote might be different from the original. Problem: Venous Thromboembolism, (actual or risk of) Goal: Absence of venous thromboembolism (Risk) Outcome: Progressing as expected Problem: Pain Goal: Control of pain at or below patient's documented comfort goal Outcome: Progressing as expected Goal: Reduction in pain sensation Outcome: Progressing as expected Problem: Falls, Risk of Goal: Absence of falls Outcome: Progressing as expected Problem: Discharge Planning Goal: Adequate for discharge Outcome: Progressing as expected Goal: Effective communication Outcome: Progressing as expected Zaina Osorio RN [facility] 2022-10-24 13:05:15 Formatting of this n ote might be different from the original. Nurse Report Report given to VALERIA Hodge. Chief complaint, assessment findings, and orders reviewed. Plan of care discussed with both nurses. Patient verbalized understanding for admission. Jessica Weaver RN Jessica Weaver RN [facility] 2022-10-24 12:49:11 Formatting of this n ote might be different from the original. Patient admitted to med-surg for diagnosis of hypertensive emergency, elevated troponin, and BELL. Patient agrees to admission, discussed plan of care with patient. Patient is awake, alert, oriented, resp reg unlabored, color appropriate for race, PIV intact. No adverse reaction to medications administered while in ED. Belongings with patient to unit. [facility] 2022-10-24 09:29:58 Formatting of this n ote might be different from the original. Noticed growth on face two weeks ago. Thought it was a hair bump but now its hanging off his face. Also needs medications refilled. Has been out of BP meds for over a month. Gabriella Adan RN [facility] 2022-10-24 09:21:00 Associated Order(s): EKG-12 Lead ROUTINE ONCE Pre-Procedure Diagnose(s): Hypertensive urgency Post-Procedure Diagnose(s): Hypertensive urgency Images from the original note were not included. [facility] Emergency Department Note Patient Name: Zander Melvin Date of : 1960 61 year old male Treatment Room: [place] [address] Primary Care Physician: PATIENT DOES NOT HAVE A PCP Patient Escorted by: Self [9] Mode of Arrival: Personal means [1] EMS Treatment Prior to ED Arrival: Travel and Exposure Screening: Symptoms Does patient have any of these symptoms?: (not recorded) Exposure Screening Has patient had contact with someone with a communicable disease in the last month?: (not recorded) Diseases exposed to:: (not recorded) Is Patient ?: (not recorded) Exposure Date: (not recorded) Chief Complaint: Chief Complaint Patient presents with GROWTH History of Present Illness: Zander Melvin is a 61 year old male [...] dysphagia, dysuria, hematuria, hemoptysis, nausea, vomiting or diarrhea. History provided by: Patient aircraft communicator used: No Past Medical History/Immunizations: Past Medical History: Diagnosis Date CAD (coronary artery disease) CKD (chronic kidney disease) stage 2, GFR 60-89 ml/min HTN (hypertension) MD (myocardial infarction) Other hyperlipidemia S/P arterial stent Allergies: No Known Allergies Past Social History: Tobacco Use Some Days; 0.25 packs/day; Types: Cigarettes Passive Exposure: Past Smokeless Tobacco: Never used smokeless tobacco. Alcohol Use Not Currently. Past Surgical History: Past Surgical History: Procedure Laterality Date DEBRIDEMENT LOWER EXTREMITY (SHX) Left 07/15/2022 Surgeon: Chela Treviño MD; [place] [facility] [place] Review of Systems: Review of Systems Constitutional: Negative. HENT: Negative. Eyes: Negative. Respiratory: Negative. Cardiovascular: Negative. Elevated blood pressure Gastrointestinal: Negative. Genitourinary: Negative. Musculoskeletal: Negative. Skin: Negative for color change, pallor, rash and wound. Skin growth on left side of face Neurological: Negative. Psychiatric/Behavioral: Negative. Endocrine: Endocrine negative Physical Exam: ED Triage Vitals [10/24/22 0931] Weight 101.2 kg (223 lb) Actual or estimated Estimated by patient/family report Height 1.803 m (5' 11") BP (!) 225/118 Pulse 58 Resp 16 Temp 36.5 ?C (97.7 ?F) Temp source Oral SpO2 100 % Measured on Room air Physical Exam Vitals and nursing note reviewed. Constitutional: General: He [...] and Affect: Mood normal. Behavior: Behavior normal. Radiology: No orders to display Lab Results: Lab Results - No data to display EKG: If EKG completed, see Procedure Note. Orders and Treatments: Orders Placed This Encounter Procedures CBC WITH DIFF COMP. METABOLIC PANEL (52348) TROPONIN I No orders of the defined types were placed in this encounter. First Provider Eval: ED Events Date/Time Event User Comments 10/24/22929 Medical Screening Begins ANITRA YEN NP -- 10/24/22929 First Provider Evaluation ANITRA YEN NP -- No notes of EC Admission Criteria type on file. ED COURSE Labs, ECG ED Course as of 10/24/22 1158 Tue Oct 24, 2022 1119 CREATININE(!): 3.68 [JA] 1119 BUN(!): 41 [JA] 1118 TROPONIN I(!): 0.057 [JA] ED Course User Index [JA] Anitra Yen NP Diagnosis/Impression as of 10/24/22 1158 Hypertensive urgency Acute kidney injury NSTEMI (non-ST elevated myocardial infarction) Hypertensive emergency Procedures: EKG-12 Lead ROUTINE ONCE Date/Time: 10/24/2022 11:35 AM Performed by: Anitra Yen NP Authorized by: Anitra Yen NP ECG reviewed by ED Physician in the absence of a battery plate assembler: yes Previous ECG: Previous ECG: Compared to current Similarity: No change Interpretation: Interpretation: abnormal Rate: ECG rate: 41 ECG rate assessment: bradycardic Rhythm: Rhythm: sinus bradycardia Ectopy: Ectopy: none QRS: QRS axis: Normal QRS intervals: Normal QRS conduction: normal ST segments: ST segments: Normal T waves: T waves: normal Q waves: Abnormal Q-waves: not present MDM: Zander Melvin is a 61 year old male who present to the ED with skin growth on left side of face and elevated blood pressure due to lack of meds x 2 weeks. Patient said he ran out of BP meds. DDX: SKIN TAG LIPOMA SEBACEOUS CYST HYPERTENSIVE URGENCY ELECTROLYTE ABNORMALITY CARDIAC ARRHYTHMIAS RENAL INSUFFICIENCY HYPERTENSIVE EMERGENCY Medical Decision Making Zander Melvin is a 61 year old male who present to the ED with skin growth on left side of face and elevated blood pressure due to lack of meds x 2 weeks. Patient said he ran out of BP meds. Problems Addressed: Acute kidney injury: acute illness or injury Hypertensive emergency: acute illness or injury Hypertensive urgency: acute illness or injury NSTEMI (non-ST elevated myocardial infarction): acute illness or injury Amount and/or Complexity of Data Reviewed Labs: ordered. Decision-making details documented in ED Course. ECG/medicine tests: ordered. Decision-making details documented in ED Course. Discussion of management or test interpretation with external provider(s): Spoke with admitting physician for patient's admission Risk Prescription drug management. Decision regarding hospitalization. Risk Details: Patient has hypertensive emergency with elevated troponin. There is a possibility of worsening symptoms or negative outcomes for patient without further care and evaluation beyond ED. Patient is going to benefit from hospital stay, plan discussed with patient and he verbalized understanding and agrees. Flowsheet Documentation: Scoring Tools: No data recorded Disposition/Condition: ED Disposition None Discharge Medications: Patient's Medications START taking these medications No medications [...] taking these medications No medications on file Follow-up: Electronically signed by: Anitra Yen NP 10/24/22 1359 Associated attestation - Navarro Cat DO - 10/25/2022 1:44 PM CDT I was available for consultation at all times during the patient encounter and present in the Emergency Department providing general supervision. However, I did not see or evaluate the patient. Patient seen and evaluated by CHARLA. [facility] [employer] [facility]
[2024-01-03] MEDS ORDERED: ACETAMINOPHEN 500 MG TAB ONE (18:47)
--- NOTE | 2024-01-03 18:52 | RAD REPORT ---
EXAMINATION: ONE VIEW CHEST XR CLINICAL INDICATION: FEVER TECHNIQUE: Frontal chest projection is submitted. Examination is limited by patient positioning and t echnique. COMPARISON: 06/19/2023 FINDINGS: [id number] pulmonary edema pattern is seen. The heart is normal in size. No displaced fractures identified. Right-sided venous catheters tip in the SVC. IMPRESSION: Mild CHF versus volume overload pattern.
[2024-01-03 18:55] LABS: Absolute Lymphocytes (CBC) 0.5 K/uL (0.7-4.9); Absolute Monocytes 0.8 K/uL (0.1-1.3); Absolute Neutrophil 7.3 K/uL (1.8-8.0); Basophils % 0.4 % (0-1.3); Eosinophils % 0.1 % (0-4.4); Hematocrit 33.6 % (39.6-49.0); Hemoglobin 11.1 g/dL (13.6-17.9); Lymphocytes % 5.6 % (15.3-44.8); MCH 28.9 pg (27.0-35.0); MCHC 33.2 g/dL (32.0-36.0); MCV 87.3 fL (80-100); MPV 8.1 fL (7.6-11.3); Monocytes % 9.6 % (3.3-12.3); Neutrophils % 84.3 % (41.7-73.7); Platelets 210 thou/uL (152-406); RBC Red Blood Cell Count 3.85 M/uL (4.33-5.43); Red Cell Distribution Width 14.1 % (12.1-15.2)
[2024-01-03 19:08] LABS: PT Prothrombin Time 13.9 SECONDS (9.4-12.5); PTT, Activated Partial Thromb 27.1 SECONDS (24.3-36.9); Protime INR 1.25
[2024-01-03 19:17] LABS: SARS-CoV-2 Antigen CONTROL BLUE LINE VIS/BG OK; SARS-CoV-2 Antigen Rapid Res Negative (Negative)
[2024-01-03 19:17] LABS: ALT/SGPT < 14 U/L (16-61); AST/SGOT < 10 U/L (15-37); Albumin 3.1 g/dL (3.4-5.0); Albumin/Globulin Ratio 0.7 (1.1-1.8); Alkaline Phosphatase 67 U/L (45-117); Anion Gap 10.6 mEq/L (5.0-15.0); BUN Blood Urea Nitrogen 32 mg/dL (7-18); Bicarbonate 24 mEq/L (21-32); Bilirubin Total 0.5 mg/dL (0.2-1.0); Globulin 4.7 g/dL (2.3-3.5); Glomerular Filtration Rate 7 ml/min (=/>90); Glucose Level 119 mg/dL (74-106); Potassium 3.6 mEq/L (3.5-5.1); Protein, Total 7.8 g/dL (6.4-8.2); Sodium Level 135 mEq/L (136-145)
--- NOTE | 2024-01-03 21:21 | RAD REPORT ---
EXAM: CT brain without contrast HISTORY: DIZZINESS COMPARISON: None TECHNIQUE: Multiple contiguous axial images were obtained and a CT of the brain without contrast. Sag ittal and coronal reformats were performed. One or more of the following dose reduction techniques were used: Automated exposure control, adjust ment of the mA and/or kV according to patient size, and/or iterative reconstruction. FINDINGS: No evidence of hydrocephalus, intracranial hemorrhage, or extra-axial fluid collection. Moderate brain atrophy with moderate periventricular and deep white matter chronic microvascular isc hemic changes present. No evidence of midline shift or areas of brain edema. The calvarium is intact. The visualized paranasal sinuses and mastoid air cells are essentially clear . IMPRESSION: No evidence of acute intracranial abnormality.
--- NOTE | 2024-01-03 21:26 | RAD REPORT ---
EXAM: CT CHEST, ABDOMEN AND PELVIS WITHOUT CONTRAST CLINICAL INDICATION: FEVER TECHNIQUE: CT chest, abdomen and pelvis was performed without contrast, as per department protocol. A xial, sagittal and coronal reconstructions were obtained. One or more of the following dose reduction techniques were used: Automated exposure control, adjustment of the mA and/or kV according to patient size, and/or iterative reconstruction. Unless otherwise specified, incidental findings do not require dedicated imaging follow-up. Examination is limited by the lack of intravenous contrast material. COMPARISON: No prior exam. FINDINGS: LUNGS: Mild linear atelectasis in left lung base. The lungs are otherwise clear. PLEURA: No pleural effusion. No pneumothorax. MEDIASTINUM AND LYMPH NODES: No mediastinal mass or fluid collection. Normal size mediastinal, hilar, and axillary lymph nodes. OSSEOUS STRUCTURES AND CHEST WALL: Intact. LIVER: Normal in size and contour. No focal lesion or biliary dilatation. Grossly unremarkable gallbl adder. PANCREAS: No mass, ductal dilation, or mihai-pancreatic fluid. SPLEEN: Normal size. No focal lesion. ADRENALS: Normal; no mass. KIDNEYS: Normal size and contour. No hydronephrosis. URINARY BLADDER: Normal contour. GASTROINTESTINAL TRACT: No bowel obstruction, free air, significant free fluid or abscess. APPENDIX: Normal appendix. LYMPH NODES: No lymphadenopathy. MUSCULOSKELETAL: Moderate lumbar degenerative spondylosis. OTHER: IMPRESSION: No acute or significant abnormalities seen in the chest, abdomen or pelvis.
[2024-01-03] MEDS ORDERED: NA CHLORIDE 0.9% 250 ML ONE (21:53)
[2024-01-03] MEDS ORDERED: CEFEPIME 2 GM VIAL ONE (21:59)
[2024-01-03] MEDS ORDERED: NA CHLORIDE 0.9% 100 ML ONE (21:59)
--- NOTE | 2024-01-03 23:18 | EDPHYS ---
Physician Documentation [facility] Name: Zander Melvin Age: 63 yrs Sex: Male : 1960 Arrival Date: 01/03/2024 Time: 17:28 Bed 18 Private MD: ED Physician Triston Murphy HPI: 01/02 18:15 This 63 yrs old Black Male presents to ER via Wheelchair with complaints of Fever, High cp Blood Pressure. 18:15 The patient reports fever, with an emergency department temperature of 101.2 degrees cp Fahrenheit. 18:15 Onset: The symptoms/episode began/occurred 3 day(s) ago. Associated signs and symptoms: cp Pertinent positives: altered mental status,\E\ elevated blood pressure. 18:15 Patient reports completing dialysis earlier today. cp Historical: - Allergies: 17:51 No Known Allergies; tm6 - PMHx: 17:51 End stage renal disease; dialysis TTS; Hypertensive disorder; tm6 - PSHx: 17:51 I\T\D facial abscess; tm6 - Immunization history:: Client reports receiving the 2nd dose of the Covid vaccine. - Infectious Disease History:: Denies. - Social history:: Smoking status: Patient denies any tobacco usage or history of. Patient/guardian denies using alcohol. ROS: 18:20 Constitutional: Positive for body aches, fever, cp 18:20 Eyes: Negative for injury, pain, redness, and discharge, cp 18:20 Respiratory: Negative for cough, shortness of breath, wheezing, 18:20 Abdomen/GI: Negative for abdominal pain, vomiting, diarrhea, constipation, 18:20 Neuro: Positive for altered mental status, Negative for headache, 18:20 ENT: Negative for drainage from ear(s), ear pain, sore throat, difficulty swallowing, cp difficulty handling secretions, 18:20 Cardiovascular: Negative for chest pain, edema, 18:20 All other systems are negative, Exam: 18:25 Constitutional: The patient appears in no acute distress, alert, awake, cp non-diaphoretic, non-toxic, well developed, well nourished, 18:25 Head/Face: Normocephalic, atraumatic. cp 18:25 Eyes: Periorbital structures: appear normal, Pupils: equal, round, and reactive to cp light and accomodation, Extraocular movements: intact throughout, Conjunctiva: normal, no exudate, no injection, Sclera: no appreciated abnormality, Lids and lashes: appear normal, bilaterally, 18:25 ENT: External ear(s): are unremarkable, Nose: is normal, Mouth: Lips: moist, Oral mucosa: moist, Posterior pharynx: Airway: no evidence of obstruction, patent, 18:25 Neck: ROM/movement: is normal, is supple, without pain, no range of motions limitations, no meningismus, 18:25 Chest/axilla: Inspection: normal, 18:25 Cardiovascular: Rate: tachycardic, Rhythm: regular, Edema: is not appreciated, JVD: is not appreciated, 18:25 Respiratory: the patient does not display signs of respiratory distress, Respirations: normal, no use of accessory muscles, no retractions, labored breathing, is not present, Breath sounds: are clear throughout, no decreased breath sounds, no stridor, no wheezing, 18:25 Abdomen/GI: Inspection: abdomen appears normal, Palpation: abdomen is soft and non-tender, in all quadrants, 18:25 Back: ROM is normal, 18:25 Neuro: Orientation: to person, situation, Mentation: able to follow commands, Cerebellar function: is grossly normal, Motor: moves all fours, no focal deficits, 19:07 ECG was reviewed by the Attending Physician. cp Vital Signs: 17:49 BP 139 / 80; Pulse 117; Resp 20; Temp 101.2(O); Pulse Ox 95% on R/A; MAP 97 mmHg; tm6 Weight 104.33 kg; Height 5 ft. 11 in. ; Pain 0/10; 18:30 BP 135 / 85; Pulse 92; Resp 16; Pulse Ox 95% ; me1 19:30 BP 135 / 83; Pulse 85; Resp 16; Temp 98.9; Pulse Ox 95% ; me1 20:00 BP 132 / 71; Pulse 80; Resp 16; Pulse Ox 96% ; me1 21:00 BP 121 / 78; Pulse 79; Resp 16; Pulse Ox 98% ; me1 22:00 BP 120 / 73; Pulse 72; Resp 17; Pulse Ox 96% ; me1 23:00 BP 129 / 67; Pulse 66; Resp 15; Pulse Ox 97% ; me1 23:30 BP 122 / 75; Pulse 73; Resp 16; Pulse Ox 97% ; me1 17:49 Body Mass Index 32.08 (104.33 kg, 180.34 cm) tm6 17:49 Pain Scale: Adult tm6 MDM: 17:41 Medical Screening Exam initiated cp 21:00 Differential diagnosis: viral Infection, bacterial infection, UTI, meningitis, sepsis, cp pneumonia. 23:25 Data reviewed: vital signs, nurses notes, lab test result(s), EKG, radiologic studies, cp CT scan, plain films, and as a result, I will admit patient. 23:25 I considered the following discharge prescriptions or medication management in the emergency department Medications were administered in the Emergency Department. See MAR. Independent interpretation of the following test(s) in the Emergency Department EKG: See my EKG interpretation above. Care significantly affected by the following chronic conditions: Chronic Kidney Disease. Counseling: I had a detailed discussion with the patient and/or guardian regarding the historical points, exam findings, and any diagnostic results supporting the discharge/admit diagnosis, lab results, radiology results, the need for further work-up and treatment in the hospital. Response to treatment: the patient's symptoms have mildly improved after treatment. 23:30 Management of patient was discussed with the following: Hospitalist: DR Guevara will admit after discussion. 01/02 18:14 Order name: SARS RAPID; Complete Time: 20:09 01/02 18:14 Order name: Influenza Screen (a \T\ B); Complete Time: 20:09 01/02 20:10 Interpretation: Reviewed. 01/02 18:14 Order name: Urinalysis w/ reflexes; Complete Time: 01:06 01/03 01:06 Interpretation: Normal except: [facility] Extremely Turbid; UBLD 3+ (OVER); UPROT 3+; UWBC cp 20-50; URBC >50; UBACT 20-50. 01/02 18:14 Order name: Blood Culture Adult (2) 01/02 18:14 Order name: CBC with Diff; Complete Time: 20:09 01/02 20:09 Interpretation: Normal except: RBC 3.85; HGB 11.1; HCT 33.6; RAYNE% 84.3; LYM% 5.6; LYMA cp 0.5. 01/02 18:14 Order name: CMP; Complete Time: 20:09 01/02 20:09 Interpretation: Normal except: NA 135; GLUC 119; BUN 32; CRE 8.20; GFR 7; AST < 10; ALT cp < 14; ALB 3.1; GLOB 4.7; A/G 0.7. 01/02 18:14 Order name: Lactate w/ 2H reflex if indic.; Complete Time: 20:09 01/02 20:10 Interpretation: Reviewed. 01/02 18:14 Order name: Protime (+inr); Complete Time: 20:09 01/02 18:14 Order name: Ptt, Activated; Complete Time: 20:09 01/02 23:54 Order name: Urine Culture EDVA 01/03 01:07 Order name: Urinalysis w/ reflexes EDVA 01/02 18:14 Order name: Chest Single View XRAY; Complete Time: 18:56 01/02 18:56 Interpretation: Report review. 01/02 20:11 Order name: CT Head Brain wo Cont; Complete Time: 21:32 01/02 20:11 Order name: CT Chest Abdomen Pelvis W/O Contrast; Complete Time: 21:32 01/02 21:32 Interpretation: Report reviewed. 01/02 18:14 Order name: Accucheck; Complete Time: 21:29 01/02 18:14 Order name: Cardiac monitoring; Complete Time: 19:05 01/02 18:14 Order name: EKG - Nurse/Tech; Complete Time: 19:05 01/02 18:14 Order name: IV Saline Lock - Large Bore; Complete Time: 18:38 01/02 18:14 Order name: Labs collected and sent; Complete Time: 18:39 01/02 18:14 Order name: O2 Per Protocol; Complete Time: 18:39 01/02 18:14 Order name: O2 Sat Monitoring; Complete Time: 18:39 01/02 18:14 Order name: Vital Signs; Complete Time: 18:39 cp EC:07 Rate is 89 beats/min. Rhythm is regular. NE interval is normal. QRS interval is cp prolonged at 104 msec. QT interval is normal. T waves are Inverted in leads I, aVL, aVR. Interpreted by me. Reviewed by me. Administered Medications: 18:52 Drug: Acetaminophen PO 1000 mg PO once Route: PO; me1 21:28 Follow up: Response: No adverse reaction; Temperature is decreased me1 21:56 Drug: NS 0.9% IV 250 ml IV at bolus once; to be given as a bolus over 30 minutes Route: me1 IV; Rate: bolus; Site: right antecubital; 22:49 Drug: Cefepime IVPB 2 grams IVPB at 200 ml/hr once over 30 mins; (mix in NS 100 mL) me1 Route: IVPB; Rate: 200 ml/hr; Infused Over: 30 mins; Site: right antecubital; 23:29 Follow up: Response: No adverse reaction; IV Status: Completed infusion; IV Intake: me1 100ml Disposition Summary: 01/03/24 23:18 Hospitalization Ordered Notes: Hospitalization Status: Inpatient Admission cp Provider: Deven Guevara cp Condition: Stable cp Problem: new cp Symptoms: have improved cp Bed/Room Type: Standard cp Location: Telemetry/MedSurg (Inpatient)(01/04/24 07:18) eb Room Assignment: [facility](01/04/24 07:18) eb Diagnosis - Fever presenting with conditions classified elsewhere cp - Altered mental status, unspecified cp - UTI/ Urinary tract infection, site not specified cp Forms: - Medication Reconciliation Form cp - SBAR form cp - Leadership Thank You Letter cp Signatures: Dispatcher [employer] EDMS Triston Rees PA PA cp Garcia, Cindy, VALERIA SHAW Iva Sauceda Michelle, RN RN me1 Stormy Muller RN RN tm6 Corrections: (The following items were deleted from the chart) 17:52 17:51 PMHx: DIALYSIS MWF (DIALYSIS MWF); tm6 tm6 18:14 18:14 SARS-COV-2 Antigen Rapid+I.LAB.BRZ ordered. EDMS EDMS 18:14 18:14 Influenza Screen (A \T\ B)+BA.LAB.BRZ ordered. EDMS EDMS 18:14 18:14 Urinalysis+U.LAB.BRZ ordered. EDMS EDMS 18:14 18:14 BLOOD CULTURE*+BA.LAB.BRZ ordered. EDMS EDMS 18:14 18:14 CBC+H.LAB.BRZ ordered. EDMS EDMS 18:14 18:14 COMPREHENSIVE METABOLIC PANEL+C.LAB.BRZ ordered. EDMS EDMS 18:14 18:14 LACTATE+C.LAB.BRZ ordered. EDMS EDMS 18:14 18:14 PROTIME (+INR)+COAG.LAB.BRZ ordered. EDMS EDMS 18:14 18:14 PTT, ACTIVATED+COAG.LAB.BRZ ordered. EDMS EDMS 18:14 18:14 Chest Single View+RAD.RAD.BRZ ordered. EDMS EDMS 21:56 20:12 Guillory ordered. cp me1 01/03 00:25 01/02 23:18 Telemetry/MedSurg (Inpatient) cp cg 01/03 00:25 01/02 23:18 cp cg 01/03 07:18 00:25 BR ER HOLD cg eb 07:18 00:25 ERHOLD- cg eb
--- NOTE | 2024-01-03 23:18 | ER ---
Nurse's Notes [facility] Name: Zander Melvin Age: 63 yrs Sex: Male : 1960 Arrival Date: 01/03/2024 Time: 17:28 Bed 18 Private MD: Diagnosis: Fever presenting with conditions classified elsewhere;Altered mental status, unspecified;UTI/ Urinary tract infection, site not specified Presentation: 01/02 17:49 Chief complaint: Patient states: I am a dialysis patient and I think my BP is high, I tm6 feel weird/woozy/dizzy. I have felt feverish on and off for 3 days. Coronavirus screen: Client denies travel out of the [place] in the last 14 days. Ebola Screen: Patient negative for fever greater than or equal to 101.5 degrees Fahrenheit, and additional compatible Ebola Virus Disease symptoms Patient denies exposure to infectious person. Patient denies travel to an Ebola-affected area in the 21 days before illness onset. No symptoms or risks identified at this time. Initial Sepsis Screen: Does the patient meet any 2 criteria? Temp <36.0*C (96.8*F)) or > 38.3*C (100.9*F). HR > 90 bpm. Does the patient have a suspected source of infection? No. Patient's initial sepsis screen is negative. Risk Assessment: Do you want to hurt yourself or someone else? Patient reports no desire to harm self or others. Onset of symptoms was January 03, 2024. 17:49 Method Of Arrival: Wheelchair tm6 17:49 Acuity: JAMES 3 tm6 Triage Assessment: 17:51 General: Appears in no apparent distress. Behavior is calm, cooperative. Pain: Denies tm6 pain. EENT: No signs and/or symptoms were reported regarding the EENT system. Neuro: Level of Consciousness is awake, alert, obeys commands, Oriented to person, place, time, situation, Reports dizziness. Cardiovascular: Patient's skin is warm and dry. Respiratory: Airway is patent Respiratory effort is even, unlabored, Respiratory pattern is regular, symmetrical. GI: No signs and/or symptoms were reported involving the gastrointestinal system. Abdomen is flat, non-distended. : No signs and/or symptoms were reported regarding the genitourinary system. Derm: No signs and/or symptoms reported regarding the dermatologic system. Musculoskeletal: No signs and/or symptoms reported regarding the musculoskeletal system. Historical: - Allergies: 17:51 No Known Allergies; tm6 - PMHx: 17:51 End stage renal disease; dialysis TTS; Hypertensive disorder; tm6 - PSHx: 17:51 I\\T\\D facial abscess; tm6 - Immunization history:: Client reports receiving the 2nd dose of the Covid vaccine. - Infectious Disease History:: Denies. - Social history:: Smoking status: Patient denies any tobacco usage or history of. Patient/guardian denies using alcohol. Screenin:[facility] ED Fall Risk Assessment (Adult) History of falling in the last 3 months, me1 including since admission No falls in past 3 months (0 pts) Confusion or Disorientation No (0 pts) Intoxicated or Sedated No (0 pts) Impaired Gait No (0 pts) Mobility Assist Device Used No (0 pt) Altered Elimination No (0 pt) Score/Fall Risk Level 0 - 2 = Low Risk Maintained a safe environment, Provided non-skid footwear, Hourly rounding (assess needs \\T\\ fall precautionary measures) done. Abuse screen: Denies threats or abuse. Nutritional screening: No deficits noted. Tuberculosis screening: No symptoms or risk factors identified. Assessment: 17:59 General: Appears in no apparent distress. well groomed, well developed, well nourished, me1 Behavior is calm, cooperative, appropriate for age, Reports Im a dialysis patient and I think my blood pressure is high. Im feeling dizzy. Reports "feeling like I've had fever" for the past 3 days. Pain: Denies pain. Neuro: Level of Consciousness is awake, alert, obeys commands, Oriented to person, place, time, situation, Appropriate for age Reports dizziness. Cardiovascular: Patient's skin is warm and dry. Respiratory: Airway is patent Respiratory effort is even, unlabored, Respiratory pattern is regular, symmetrical. GI: No signs and/or symptoms were reported involving the gastrointestinal system. : No signs and/or symptoms were reported regarding the genitourinary system. : Reports he is a dialysis patient and had dialysis today. EENT: No signs and/or symptoms were reported regarding the EENT system. Derm: Skin is intact, is healthy with good turgor, Skin is pink, warm \\T\\ dry. Musculoskeletal: No signs and/or symptoms reported regarding the musculoskeletal system. 01/03 00:00 Reassessment: Patient and/or family updated on plan of care and expected duration. Pain kj2 level reassessed. Patient is alert, oriented x 3, equal unlabored respirations, skin warm/dry/pink. report received from VALERIA Ogden. 06:55 Reassessment: urine not resulted, spoke to lab, urine results requested to be tubed to kj2 ER at this time. Vital Signs: 01/02 17:49 BP 139 / 80; Pulse 117; Resp 20; Temp 101.2(O); Pulse Ox 95% on R/A; MAP 97 mmHg; tm6 Weight 104.33 kg; Height 5 ft. 11 in. ; Pain 0/10; 18:30 BP 135 / 85; Pulse 92; Resp 16; Pulse Ox 95% ; me1 19:30 BP 135 / 83; Pulse 85; Resp 16; Temp 98.9; Pulse Ox 95% ; me1 20:00 BP 132 / 71; Pulse 80; Resp 16; Pulse Ox 96% ; me1 21:00 BP 121 / 78; Pulse 79; Resp 16; Pulse Ox 98% ; me1 22:00 BP 120 / 73; Pulse 72; Resp 17; Pulse Ox 96% ; me1 23:00 BP 129 / 67; Pulse 66; Resp 15; Pulse Ox 97% ; me1 23:30 BP 122 / 75; Pulse 73; Resp 16; Pulse Ox 97% ; me1 17:49 Body Mass Index 32.08 (104.33 kg, 180.34 cm) tm6 17:49 Pain Scale: Adult 6 ED Course: 17:31 Patient arrived in ED. mr 17:41 Triston Rees PA is PHCP. cp 17:41 Triston Mruphy MD is Attending Physician. cp 17:51 Triage completed. tm6 17:51 Arm band placed on right wrist. tm6 17:57 Melvi Medina, VALERIA is Primary Nurse. me1 17:59 Patient has correct armband on for positive identification. Bed in low position. Call ky1 light in reach. Side rails up X 1. Provided Education on: POC. Verbalized understanding.. Client placed on continuous cardiac and pulse oximetry monitoring. NIBP monitoring applied. Pulse ox on. NIBP on. 17:59 No provider procedures requiring assistance completed. me1 18:32 Initial lab(s) drawn, by me, sent to lab. First set of blood cultures drawn COVID swab me1 sent to lab. Flu and/or RSV swab sent to lab. 18:36 Inserted saline lock: 20 gauge in right antecubital area, using aseptic technique. me1 18:39 CBC with Diff Sent. me1 18:39 CMP Sent. me1 18:39 Lactate w/ 2H reflex if indic. Sent. me1 18:39 Protime (+inr) Sent. me1 18:39 Ptt, Activated Sent. me1 18:39 Influenza Screen (a \\T\\ B) Sent. me1 18:39 SARS RAPID Sent. me1 18:43 Chest Single View XRAY In Process Unspecified. EDMS 18:44 Second set of blood cultures drawn by me. me1 19:05 EKG done, by ED staff, reviewed by Triston HO. me1 21:10 CT Head Brain wo Cont In Process Unspecified. EDMS 21:10 CT Chest Abdomen Pelvis W/O Contrast In Process Unspecified. EDMS 22:49 Urinalysis w/ reflexes Sent. me1 22:49 Urine collected: clean catch specimen, cloudy, tea colored. me1 23:17 Deven Guevara MD is Hospitalizing Provider. cp Administered Medications: 18:52 Drug: Acetaminophen PO 1000 mg PO once Route: PO; me1 21:28 Follow up: Response: No adverse reaction; Temperature is decreased me1 21:56 Drug: NS 0.9% IV 250 ml IV at bolus once; to be given as a bolus over 30 minutes Route: me1 IV; Rate: bolus; Site: right antecubital; 22:49 Drug: Cefepime IVPB 2 grams IVPB at 200 ml/hr once over 30 mins; (mix in NS 100 mL) me1 Route: IVPB; Rate: 200 ml/hr; Infused Over: 30 mins; Site: right antecubital; 23:29 Follow up: Response: No adverse reaction; IV Status: Completed infusion; IV Intake: me1 100ml Medication: 17:59 VIS not applicable for this client. me1 Intake: 23:29 IV: 100ml; Total: 100ml. ky1 Outcome: 23:18 Decision to Hospitalize by Provider. cp 01/03 08:40 Patient left the ED. Signatures: Dispatcher [employer] EDMS Cheryl Weaver, Reg Reg mr Triston Rees, VIC HO cp Melinda Franco RN RN Melvi Medina RN RN ky1 Stormy Muller RN RN 6 Ros Fowler RN RN kj2 Corrections: (The following items were deleted from the chart) 01/02 17:52 17:51 PMHx: DIALYSIS MWF (DIALYSIS MWF); tm6 tm6 19:06 16:30 BP 171 / 85; Pulse 52bpm; Resp 16bpm; Pulse Ox 100%; me1 me1 22:10 19:30 BP 135 / 83; Pulse 85bpm; Resp 16bpm; Pulse Ox 95%; ky1 ky1
[2024-01-03 23:50] LABS: Renal Epithelial <5 /HPF (None Seen); Specific Gravity 1.022 (1.005-1.030); Sqamous Epithelial <5 /HPF (None Seen); Urine Bacteria 20-50 /HPF (<20); Urine Bilirubin NEGATIVE (Negative); Urine Blood 3+ (OVER) (Negative); Urine Clarity Extremely Turbid (Clear); Urine Color Light-Orange (Yellow); Urine Culture Reflex Order REFLEXED; Urine Glucose NEGATIVE (Negative); Urine Ketones NEGATIVE (Negative); Urine Microscopic Reflex YN ORDER UMIC; Urine Nitrite NEGATIVE (Negative); Urine Protein 3+ (Negative); Urine RBC >50 /HPF (None Seen); Urine Urobilinogen Normal (Normal); Urine WBC 20-50 /HPF (<5); Urine pH 5.5 (5.0-7.0)
--- NOTE | 2024-01-04 01:10 | P.HP ---
Certification for Inpatient Patient admitted to: Inpatient With expected LOS: >2 Midnights Practitioner: I am a practitioner with admitting privileges, knowledge of patient current condition, hospital course, and medical plan of care. Services: Services provided to patient in accordance with Admission requirements found in Title 42 Section 412.3 of the Code of Federal Regulations Patient History Date of Service: 01/04/24 Reason for admission: FEver History of Present Illness: 62-year-old male with past medical history of hypertension , DM and end-stage renal disease on dialysis who presented with complaints of Fever, chills, and weakness that started yesterday. Patient had dialysis yesterday. Started having generalized weakness 2 days ago and has been progressively getting worse. Denies any chest pain or shortness of breath. No nausea vomiting or diarrhea. Denies any dysuria. No cough. The patient was assessed in the ER and was admitted for further management of possible sepsis. He was found to be having UTI Allergies No Known Allergies Allergy (Verified 06/03/23 00:10) Home medications list reviewed: Yes Home Medications: cloNIDine HCL [Catapres*] 0.1 mg PO BEDTIME 06/02/23 Furosemide [Lasix] 40 mg PO BID 7 Days #14 tab 06/03/23 Hydralazine [Apresoline*] 50 mg PO TID 30 Days #90 tab 06/03/23 Losartan Potassium [Cozaar*] 50 mg PO BID 90 Days #180 tab 06/03/23 Na Bicarb Tab [Sodium Bicarb 325 MG Tab*] 325 mg PO BID 7 Days #14 tab 06/03/23 Nifedipine [Procardia Xl] 60 mg PO BID 30 Days #60 tab 06/03/23 - Past Medical/Surgical History Diabetic: No Past Medical History: Reviewed- Non-Contributory -: HTN -: CKD -: DM -: ESRD Past Surgical History: Reviewed- Non-Contributory -: I/T/D facial abscess -: HD cath placement - Family History Family History: Reviewed- Non-Contributory - Social History Smoking Status: Never smoker Alcohol use: No CD- Drugs: No Caffeine use: No Review of Systems 10-point ROS is otherwise unremarkable Physical Examination - Vital Signs Temperature: 98.9 F Blood Pressure: 142/76 Pulse: 78 Respirations: 18 Pulse Ox (%): 94 - Physical Exam General: Alert, In no apparent distress, Oriented x2 HEENT: Atraumatic, Normocephalic Neck: Supple Respiratory: Clear to auscultation bilaterally, Normal air movement Cardiovascular: No edema, Regular rate/rhythm, Normal S1 S2 Capillary refill: <2 Seconds Gastrointestinal: Soft and benign, W/out hepatosplenomegaly Musculoskeletal: No clubbing, No swelling Integumentary: No rashes, No breakdown Neurological: Other (Alert awake, nonfocal) Lymphatics: No axilla or inguinal lymphadenopathy - Studies Laboratory Data (last 24 hrs) 01/03/24 01/03/24 01/03/24 18:32 18:32 18:32 WBC 8.70 Hgb 11.1 L Hct 33.6 L Plt Count 210 PT 13.9 H INR 1.25 APTT 27.1 Sodium 135 L Potassium 3.6 BUN 32 H Creatinine 8.20 H Glucose 119 H Total Bilirubin 0.5 AST < 10 L ALT < 14 L Alkaline Phosphatase 67 Microbiology Data (last 24 hrs): 01/03/24 18:35 Nasopharnyx Influenza Type A Antigen Screen - Final 01/03/24 18:35 Nasopharnyx Influenza Type B Antigen Screen - Final Assessment and Plan - Plan Sepsis Had spiking fever No leukocytosis noted Will obtain cultures Lactic acid level monitor UTI Started on IV antibiotic Will obtain cultures Change antibiotic as per sensitivity Hypertension Antihypertensives titrated Continue home medications and titrate as needed ESRD on dialysis Monitor renal parameters Electrolytes monitor and replace accordingly Nephrology consulted Diabetes Insulin sliding scale Accu-Chek before every meal and at bedtime GI/DVT prophylaxis Advanced directive full code Discharge Plan: Home Plan to discharge in: 48 Hours - Advance Directives Does patient have a Living Will: No Does patient have a Durable POA for Healthcare: No - Code Status/Comfort Care Code Status: Full Code Time Spent Managing Pts Care (In Minutes): 48
[2024-01-04] MEDS ORDERED: ACETAMINOPHEN 325 MG TABLET PO PRN (01:14)
[2024-01-04] MEDS ORDERED: MORPHINE 2 MG/ML SYR IV PRN (01:14)
[2024-01-04] MEDS: VANCOMYCIN 1.75 GM in NA CHLORIDE 0.9% 500 ML IVPB ONE (02:30)
[2024-01-04] MEDS ORDERED: VANCOMYCIN 1 GM/VIAL ONE ×2 (04:43→04:54)
[2024-01-04] MEDS ORDERED: NA CHLORIDE 0.9% 0 ML ONE (04:43)
[2024-01-04] MEDS ORDERED: NA CHLORIDE 0.9% 500 ML ONE (04:54)
[2024-01-04] MEDS: CEFEPIME IV SCH ×2 (09:00→18:13)
[2024-01-04] MEDS: NA CHLORIDE 0.9% IV SCH ×2 (09:00→18:13)
[2024-01-04] MEDS ORDERED: CEFEPIME 1 GM in NA CHLORIDE 0.9% 100 ML IV SCH (09:00)
[2024-01-04 09:45] LABS: Absolute Eosinophils 0.1 K/uL (0-0.5); Absolute Neutrophil 5.7 K/uL (1.8-8.0); Basophils % 0.6 % (0-1.3); Eosinophils % 1.5 % (0-4.4); Hematocrit 31.4 % (39.6-49.0); Hemoglobin 10.5 g/dL (13.6-17.9); Lymphocytes % 12.9 % (15.3-44.8); MCH 29.2 pg (27.0-35.0); MCHC 33.5 g/dL (32.0-36.0); MCV 87.1 fL (80-100); MPV 7.6 fL (7.6-11.3); Monocytes % 13.3 % (3.3-12.3); Neutrophils % 71.7 % (41.7-73.7); Platelets 224 thou/uL (152-406); Red Cell Distribution Width 14.3 % (12.1-15.2)
[2024-01-04 10:09] LABS: Albumin 2.8 g/dL (3.4-5.0); Albumin/Globulin Ratio 0.7 (1.1-1.8); Alkaline Phosphatase 59 U/L (45-117); BUN Blood Urea Nitrogen 44 mg/dL (7-18); Bicarbonate 29 mEq/L (21-32); Bilirubin Total 0.4 mg/dL (0.2-1.0); Globulin 4.1 g/dL (2.3-3.5); Glomerular Filtration Rate 5 ml/min (=/>90); Glucose Level 117 mg/dL (74-106); Magnesium 1.9 mg/dL (1.6-2.4); Protein, Total 6.9 g/dL (6.4-8.2); Sodium Level 136 mEq/L (136-145)
[2024-01-04 10:10] LABS: ALT/SGPT < 14 U/L (16-61); AST/SGOT < 10 U/L (15-37)
--- NOTE | 2024-01-04 12:11 | P.PN ---
Date of Service: 01/04/24 Subjective: reports feeling much better - back to normal afebrile since arrival to floor denies any specific symptoms no respiratory / GI / urinary symptoms, no rash/lesions reports recent med changes in last few weeks, but unable to recall denies any recent infections ROS: 10 point ROS as noted above, otherwise negative Physical Exam: GEN: Alert, NAD HEENT: Normal conjunctiva, sclera anicteric, CV: Regular rate and rhythm, no edema Pulm: Nonlabored respirations on room air, clear bilaterally ABD: soft, nontender, nondistended Neuro: Normal speech, normal affect Skin: old, retained suture in R upper chest above HD cath site. no evidence of infxn Problem List: Sepsis, unknown source, possible UTI ESRD on HD Hypertension NIDDM2 Sepsis, unknown source, possible UTI on admission, presents with intermittent fever for 2-3 days. 101.2 temp in ED last night. felt weak and dizzy while at dialysis yesterday CT chest/abd negative for any acute findings, noted mild linear atelectasis left lung base. CXR (01/02): mild CHF vs volume overload CT head negative for any acute findings. given IVF and IV cefepime in ED. UA concerning for UTI, however denies symptoms continue empiric IV cefepime / vanc (01/03-) follow urine/blood cultures pain control ESRD on HD Nephrology consulted for assistance with dialysis Patient had dialysis day before admission further dialysis per nephro Daily labs Hypertension confirm home meds, restart as appropriate NIDDM2 accu-cheks, SSI VTE: Code: Full Dispo: Home, ~2 days Pending cultures Time Spent Managing Pts Care (In Minutes): 55
--- NOTE | 2024-01-04 20:12 | P.CNS ---
Date of Consult: 01/04/24 Reason for Consult: ESRD Requesting Physician: Clif Philippe Chief Complaint: Fever History of Present Illness: 62-year-old male with past medical history of hypertension , DM and end-stage renal disease on dialysis who presented with complaints of Fever, chills, and weakness that started yesterday. Patient had dialysis yesterday. Started having generalized weakness 2 days ago and has been progressively getting worse. Denies any chest pain or shortness of breath. No nausea vomiting or diarrhea. Denies any dysuria. No cough. The patient was assessed in the ER and was admitted for further management of possible sepsis. He was found to be having UTI [id number] 18:15 This 63 yrs old Black Male presents to ER via Wheelchair with complaints of Fever, High cp Blood Pressure. 18:15 The patient reports fever, with an emergency department temperature of 101.2 degrees cp Fahrenheit. Allergies No Known Allergies Allergy (Verified 06/03/23 00:10) Home medications list reviewed: Yes Home Medications: cloNIDine HCL [Catapres*] 0.2 mg PO BEDTIME 06/02/23 Furosemide [Lasix] 40 mg PO BID 7 Days #14 tab 06/03/23 Hydralazine [Apresoline*] 50 mg PO TID 30 Days #90 tab 06/03/23 Losartan Potassium [Cozaar*] 50 mg PO BID 90 Days #180 tab 06/03/23 Na Bicarb Tab [Sodium Bicarb 325 MG Tab*] 325 mg PO BID 7 Days #14 tab 06/03/23 Nifedipine [Procardia Xl] 60 mg PO BID 30 Days #60 tab 06/03/23 - Past Medical/Surgical History Diabetic: No -: ESRD (Dr. Tinajero/ [facility]) -: HTN -: DM II -: I/T/D facial abscess -: HD cath placement - Social History Smoking Status: Unknown if ever smoked Alcohol use: No CD- Drugs: No Caffeine use: No Review of Systems 10-point ROS is otherwise unremarkable Physical Examination Temp Pulse Resp BP Pulse Ox 98.6 F 68 20 166/87 H 100 01/04/24 16:00 01/04/24 16:00 01/04/24 16:00 01/04/24 16:00 01/04/24 16:00 General: In no apparent distress, Oriented x3, Cooperative HEENT: Atraumatic Neck: Supple Respiratory: Clear to auscultation bilaterally Cardiovascular: No edema, Regular rate/rhythm Gastrointestinal: Soft and benign, Non-distended Musculoskeletal: No clubbing, No contractures Integumentary: No rashes, No cyanosis Neurological: Normal speech Blood work reviewed in the chart. Imagings Data: [id number] EXAM: CT brain without contrast HISTORY: DIZZINESS COMPARISON: None TECHNIQUE: Multiple contiguous axial images were obtained and a CT of the brain without contrast. Sagittal and coronal reformats were performed. One or more of the following dose reduction techniques were used: Automated exposure control, adjustment of the mA and/or kV according to patient size, and/or iterative reconstruction. FINDINGS: No evidence of hydrocephalus, intracranial hemorrhage, or extra-axial fluid collection. Moderate brain atrophy with moderate periventricular and deep white matter chronic microvascular ischemic changes present. No evidence of midline shift or areas of brain edema. The calvarium is intact. The visualized paranasal sinuses and mastoid air cells are essentially clear. IMPRESSION: No evidence of acute intracranial abnormality. [address] EXAM: CT CHEST, ABDOMEN AND PELVIS WITHOUT CONTRAST CLINICAL INDICATION: FEVER TECHNIQUE: CT chest, abdomen and pelvis was performed without contrast, as per department protocol. Axial, sagittal and coronal reconstructions were obtained. One or more of the following dose reduction techniques were used: Automated exposure control, adjustment of the mA and/or kV according to patient size, and/or iterative reconstruction. Unless otherwise specified, incidental findings do not require dedicated imaging follow-up. Examination is limited by the lack of intravenous contrast material. COMPARISON: No prior exam. FINDINGS: LUNGS: Mild linear atelectasis in left lung base. The lungs are otherwise clear. PLEURA: No pleural effusion. No pneumothorax. MEDIASTINUM AND LYMPH NODES: No mediastinal mass or fluid collection. Normal size mediastinal, hilar, and axillary lymph nodes. OSSEOUS STRUCTURES AND CHEST WALL: Intact. LIVER: Normal in size and contour. No focal lesion or biliary dilatation. Grossly unremarkable gallbladder. PANCREAS: No mass, ductal dilation, or mihai-pancreatic fluid. SPLEEN: Normal size. No focal lesion. ADRENALS: Normal; no mass. KIDNEYS: Normal size and contour. No hydronephrosis. URINARY BLADDER: Normal contour. GASTROINTESTINAL TRACT: No bowel obstruction, free air, significant free fluid or abscess. APPENDIX: Normal appendix. LYMPH NODES: No lymphadenopathy. MUSCULOSKELETAL: Moderate lumbar degenerative spondylosis. OTHER: IMPRESSION: No acute or significant abnormalities seen in the chest, abdomen or pelvis. [id number] EXAMINATION: ONE VIEW CHEST XR CLINICAL INDICATION: FEVER TECHNIQUE: Frontal chest projection is submitted. Examination is limited by patient positioning and technique. COMPARISON: 06/19/2023 FINDINGS: [id number] pulmonary edema pattern is seen. The heart is normal in size. No displaced fractures identified. Right-sided venous catheters tip in the SVC. IMPRESSION: Mild CHF versus volume overload pattern. darrenrice LEFT VENTRICULAR WALL MOTION: NORMAL DOPPLER/COLOR FLOW: SEE BELOW COMMENTS: 1. NORMAL LEFT VENTRICULAR EJECTION FRACTION GREATER THAN 60% 2. NORMAL WALL MOTION 3. SEVERE CONCENTRIC LEFT VENTRICULAR HYPERTROPHY 4. DIASTOLIC DYSFUNCTION 5. MILD AORTIC INSUFFICIENCY Conclusions/Impression: ESRD on HD Proteinuria -HD TIW TTS HTN with CKD/ CHF -Restart Nifedipine and Losartan Diastolic CHF, chronic -HD with UF DM II with CKD -RISS prn Hypoalbuminemia -Start Nepro Anemia in CKD -Retacrit qHD Acute Cystitis with Hematuria -Continue Abx -Follow up cultures Hospital and ER notes reviewed Thank you kindly for the consultation
[2024-01-04] MEDS ORDERED: MANNITOL 25% 12.5 GM/50 ML VIAL IV PRN (20:30)
[2024-01-04] MEDS ORDERED: NA CHLORIDE 0.9% 1,000 ML IV PRN (20:30)
[2024-01-04] MEDS ORDERED: ALBUMIN HUMAN 25% 50 ML IV SCH (21:00)
[2024-01-04] MEDS: NIFEDIPINE XL 60 MG TABLET PO SCH (21:12)
[2024-01-04] MEDS: LOSARTAN POTASSIUM 50 MG TABLET PO SCH (21:13)
[2024-01-05] MEDS: HYDRALAZINE HCL 25 MG TABLET ONE (05:35)
[2024-01-05] MEDS: HYDRALAZINE HCL 25 MG TABLET PO SCH (05:39)
[2024-01-05 06:29] LABS: Absolute Eosinophils 0.1 K/uL (0-0.5); Absolute Lymphocytes (CBC) 1.3 K/uL (0.7-4.9); Absolute Neutrophil 5.7 K/uL (1.8-8.0); Basophils % 0.5 % (0-1.3); Eosinophils % 1.4 % (0-4.4); Hematocrit 31.7 % (39.6-49.0); Hemoglobin 10.7 g/dL (13.6-17.9); Lymphocytes % 15.8 % (15.3-44.8); MCH 29.3 pg (27.0-35.0); MCHC 33.7 g/dL (32.0-36.0); MCV 86.8 fL (80-100); MPV 7.6 fL (7.6-11.3); Neutrophils % 70.3 % (41.7-73.7); Nucleated Red Blood Cells % 0.1 % (0-0); Platelets 232 thou/uL (152-406); RBC Red Blood Cell Count 3.65 M/uL (4.33-5.43); Red Cell Distribution Width 14.1 % (12.1-15.2)
[2024-01-05 06:54] LABS: Anion Gap 11.8 mEq/L (5.0-15.0); Potassium 3.8 mEq/L (3.5-5.1)
[2024-01-05] MEDS ORDERED: INSULIN REGULAR (HUMAN) 100 UNIT/ML SQ SCH (07:30)
--- NOTE | 2024-01-05 11:01 | P.PN ---
Date of Service: 01/05/24 Subjective: feeling better overall doesn't feel anything is getting worse reports being seen at clinic few days ago for fever, given prescription for doxycycline afebrile ROS: 10 point ROS as noted above, otherwise negative Physical Exam: GEN: Alert, NAD HEENT: Normal conjunctiva, sclera anicteric, CV: Regular rate and rhythm, no edema, systolic murmur Pulm: Nonlabored respirations on room air, clear bilaterally ABD: soft, nontender, nondistended Neuro: Normal speech, normal affect Skin: old, retained suture in R upper chest above HD cath site. no evidence of infxn Problem List: Sepsis, unknown source, suspect HD tunneled cath source gram positive bacteremia ESRD on HD Hypertension NIDDM2 Sepsis, unknown source, suspect HD tunneled cath source gram positive bacteremia on admission, presents with intermittent fever for 2-3 days. 101.2 temp in ED last night. Denies UTI symptoms. Reports being seen at clinic few days ago for fever, given prescription for doxycycline 12/31 felt weak and dizzy while at dialysis yesterday CT chest/abd negative for any acute findings, noted mild linear atelectasis left lung base. CXR (01/02): mild CHF vs volume overload urine cx (01/02): mixed maggy prelim; between 10k-100k cfu/ml blood cx (01/02): Gram positive rods in 3/4 bottles continue empiric IV cefepime / vanc (01/03-) unknown source of bacteremia. Denies prior skin/wound infections procal significantly elevated 167 (01/03) pain control no exam findings / symptoms of endocarditis. pt reports h/o murmur. check echo - Sunday is earliest ESRD on HD Nephrology consulted for assistance with dialysis Patient had dialysis day before admission further dialysis per nephro Daily labs Hypertension confirm home meds, restart as appropriate NIDDM2 accu-cheks, SSI VTE: Code: Full Dispo: Home, ~4days Pending cultures, may need new line Time Spent Managing Pts Care (In Minutes): 55
--- NOTE | 2024-01-05 12:03 | PN ---
Date of Progress Note: 01/05/2024 Subjective: Patient was seen and examined at bedside. He feels okay, this morning. Denies any more episodes of fever. Objective: Vital Signs: Have been reviewed. Blood pressures are running high. General: He appears in no acute distress. Lungs: Clear to auscultation. Abdomen: Soft and nontender. Chest: He has a right chest tunneled dialysis catheter in place. Extremities: Showed no evidence o f edema. Laboratory Data: At this time is showing labs consistent with ESRD. Stable hemoglobin, hematocrit, and platelet count. His blood cultures are currently pending. Current Medications: Include cefepime 1 g every 24 hours. Epogen with dialysis. Clonidine p.o. at bedtime. Hydralazine 50 mg 3 times a day. Losartan b.i.d. Nifedipine 60 mg b.i.d. Vancomycin. Impression: 1.End-stage renal disease, on dialysis. Patient is on Sunday, , Sunday dialysis. Plan f or dialysis today per regular schedule. 2.Sepsis of unknown source, possible urinary tract infection. The patient presented with fever on admission, T-max was 101.2. He is currently on cefepime and vanc omycin. Blood cultures from 01/02 are showing gram-positive rods in 3/4 bottles. We will await marjorie culture reports and if truly has bacteremia which is persistent, patient will need dialysis cathete r replaced. Continue antibiotics to be dosed postdialysis, at this time. Anemia is at goal. We will follow up closely. ELICIA/LINDEN Voice ID: [id number] Report ID: [id number]
[2024-01-05] MEDS: EPOETIN ALFA 10,000 UNIT/ML VIAL IV SCH (13:59)
[2024-01-05] MEDS: CEFEPIME 1 GM in NA CHLORIDE 0.9% 100 ML IV SCH (17:09)
[2024-01-05] MEDS: VANCOMYCIN 1 GM in NA CHLORIDE 0.9% 250 ML IVPB SCH ×2 (17:10)
[2024-01-05] MEDS: cloNIDine HCL 0.1 MG TAB PO SCH (20:08)
[2024-01-06 08:57] LABS: Absolute Basophils 0.1 K/uL (0-0.5); Absolute Eosinophils 0.1 K/uL (0-0.5); Absolute Lymphocytes (CBC) 1.4 K/uL (0.7-4.9); Absolute Monocytes 1.1 K/uL (0.1-1.3); Absolute Neutrophil 7.8 K/uL (1.8-8.0); Basophils % 0.7 % (0-1.3); Eosinophils % 1.3 % (0-4.4); Hematocrit 32.4 % (39.6-49.0); Hemoglobin 10.7 g/dL (13.6-17.9); Lymphocytes % 13.2 % (15.3-44.8); MCHC 33.2 g/dL (32.0-36.0); MCV 87.5 fL (80-100); MPV 7.8 fL (7.6-11.3); Monocytes % 10.1 % (3.3-12.3); Neutrophils % 74.7 % (41.7-73.7); Platelets 256 thou/uL (152-406); Red Cell Distribution Width 14.3 % (12.1-15.2)
[2024-01-06 09:10] LABS: ALT/SGPT < 14 U/L (16-61); AST/SGOT 13 U/L (15-37); Albumin 2.8 g/dL (3.4-5.0); Albumin/Globulin Ratio 0.6 (1.1-1.8); Alkaline Phosphatase 67 U/L (45-117); Anion Gap 11.9 mEq/L (5.0-15.0); BUN Blood Urea Nitrogen 44 mg/dL (7-18); Bicarbonate 25 mEq/L (21-32); Bilirubin Total 0.5 mg/dL (0.2-1.0); Globulin 4.4 g/dL (2.3-3.5); Glomerular Filtration Rate 5 ml/min (=/>90); Glucose Level 100 mg/dL (74-106); Potassium 3.9 mEq/L (3.5-5.1); Protein, Total 7.2 g/dL (6.4-8.2); Sodium Level 137 mEq/L (136-145)
[2024-01-06] MEDS: NA CHLORIDE 0.9% 500 ML ONE (09:11)
[2024-01-06] MEDS: LIDOCAINE HCL/EPINEPHRINE 20 ML MDV ONE (09:19)
[2024-01-06] MEDS ORDERED: FENTANYL CITR 100 MCG/2 ML ONE (09:26)
[2024-01-06] MEDS ORDERED: MIDAZOLAM HCL 2 MG/2 ML INJ ONE (09:27)
[2024-01-06] MEDS ORDERED: ONDANSETRON 4 MG/2 ML VIAL ONE (09:28)
[2024-01-06] MEDS ORDERED: KETOROLAC 30 MG/ML INJ ONE (09:28)
[2024-01-06] MEDS ORDERED: ETOMIDATE 20 MG/10 ML VIAL IV ONE (09:28)
[2024-01-06] MEDS ORDERED: dexAMETHasone 4 MG/ML VIAL ONE (09:28)
[2024-01-06] MEDS ORDERED: propofoL 200 MG/20 ML VIAL IV ONE (09:30)
--- NOTE | 2024-01-06 09:38 | P.PN ---
Date of Service: 01/06/24 Subjective: doing ok no acute events overnight had chills with HD yesterday ROS: 10 point ROS as noted above, otherwise negative Physical Exam: GEN: Alert, NAD CV: Regular rate and rhythm, no edema, systolic murmur Pulm: Nonlabored respirations on room air, clear bilaterally ABD: soft, nontender, nondistended Skin: old, retained suture in R upper chest above HD cath site. no evidence of infxn Problem List: Sepsis, unknown source, suspect HD tunneled cath source gram positive bacteremia ESRD on HD Hypertension NIDDM2 Sepsis, unknown source, suspect HD tunneled cath source gram positive bacteremia on admission, presents with intermittent fever for 2-3 days. 101.2 temp in ED last night. Denies UTI symptoms. Reports being seen at clinic few days ago for fever, given prescription for doxycycline 12/31 felt weak and dizzy while at dialysis yesterday CT chest/abd negative for any acute findings, noted mild linear atelectasis left lung base. CXR (01/02): mild CHF vs volume overload urine cx (01/02): mixed maggy prelim; between 10k-100k cfu/ml blood cx (01/02): Gram positive rods in 3/4 bottles continue empiric IV cefepime / vanc (01/03-) unknown source of bacteremia. Denies prior skin/wound infections. Possibly from HD tunneled cath repeat blood cx (01/04): still growing GPR in 1/4 bottles ID consulted General surgery consulted; NPO for tentative HD cath removal suspect line is source, will need line holiday procal significantly elevated 167 (01/04) - trend pain control no exam findings / symptoms of endocarditis. pt reports h/o murmur. check echo - Sunday is earliest ESRD on HD Nephrology consulted for assistance with dialysis Patient had dialysis day before admission further dialysis per nephro Daily labs Hypertension confirm home meds, restart as appropriate NIDDM2 accu-cheks, SSI VTE: Code: Full Dispo: Home, ~2-3 days Pending cultures, may need new line Time Spent Managing Pts Care (In Minutes): 55
--- NOTE | 2024-01-06 10:12 | P.OP ---
Preoperative diagnosis: Infected Hemodialysis Catheter Postoperative diagnosis: Infected Hemodialysis Catheter Primary procedure: Removal of Tunelled Hemodialysis Catheter Anesthesia: MAC + Local Estimated blood loss: <5cc Specimen: Catheter Tip sent for Culture Findings: as above Complications: None Transferred to: Recovery Room Condition: Good
--- NOTE | 2024-01-06 10:56 | OP ---
Date of Procedure: 01/06/2024 Surgeon: Derek Serna MD, Preoperative Diagnosis: Infected hemodialysis catheter. Postoperative Diagnosis: Infected hemodialysis catheter. Procedure Performed: Removal of tunneled hemodialysis catheter. Anesthesia: MAC plus local with 1% lidocaine. Estimated Blood Loss: 5 cc. Specimen: Catheter tip was sent for culture. Findings: No obvious purulent collection. Complications: None. Disposition: The patient transferred to recovery room in good condition. Procedure In Detail: After informed was obtained, patient was brought to the operating room, prepped in the usual sterile fashion. After adequate anesthesia was achieved, the patient remained in steep Trendelenburg position. At this point, I removed a stitch in the infraclavicular position which yessi eared to be an ingrown significantly probably from the initial placement which he states was over a y ear ago. This was removed without issue. I then made an incision overlying the catheter exit site a fter appropriately anesthetizing the skin down to subcutaneous tissues. I then used a combination of blunt dissection with mosquito hemostats and Metzenbaum scissors to ultimately circumferentially dis sect out the catheter. However, the cup was deeply indwelled within the pectoralis major muscle. Th is required meticulous dissection to remove and ultimately was sparing the muscle. After the cup was brought into the field, I all attached fibrous tissues and ultimately the catheter was gra sped at this point. The patient remained in steep Trendelenburg position. I then pulled the cathete r out while holding the pressure at the insert site. The catheter tip was then sent for culture. At this point, the patient was then sat up in the head up position. I then irrigated the insertion sit e and closed using interrupted 3-0 nylon sutures. A sterile dressing placed over top. The patient t olerated the procedure without incident or complication, transferred back in good condition. All cou nts were correct at the end of the case. TK/MODL Voice ID: [id number] Report ID: [id number]
--- NOTE | 2024-01-06 12:41 | CON ---
Date of Consultation: 01/06/2024 Brief History Of Present Illness: The patient is a 63-year-old male who was admitted with a past [facility] history of hypertension, diabetes, end-stage renal disease, on dialysis Sunday, , , who came to the hospital with fever, chills, weakness. This started on 01/02. He had dialysis that day and had generalized weakness 2 days prior to this and noted he had worsening symptoms with h is dialysis sessions. He had no nausea, vomiting, diarrhea. He was found to have evidence of a urin pillo tract infection possibly and sepsis workup was initiated. During his workup, he had imaging perf ormed, but the concern was for possible hemodialysis catheter infection. He had a right subclavian h emodialysis catheter placed over a year ago. He has a suture that remains in place at the insertion site which had never been removed. He does not feel any obvious drainage from the area. Past Medical History: Significant for hypertension, CKD, diabetes, end-stage renal disease. Past Surgical History: Includes left AV fistula placement as a staged operation, the second-stage he says has not been completed and he has had hemodialysis catheter placed as described above subclavia n on the right. He has had an incision and drainage of a facial abscess drained before in the past a s well. Allergies: NO KNOWN DRUG ALLERGIES. Home Medications: Include Catapres, Lasix, Apresoline, Cozaar, bicarb, Procardia. Social History: He denies smoking, alcohol or recreational drug use. Review of Systems: Ten-point review of systems other than HPI, denies. Physical Examination: Vital Signs: At the time of my examination, his blood pressure is 194/88, pulse 85, respiratory rate 18, temperature 98.5, SpO2 97% on room air. General: He is awake, alert and oriented. Psychiatric: Appropriate and conversive. HEENT: Normocephalic. His sclerae anicteric. His mucous membranes are moist. Oropharynx clear. Neck: Supple without JVD. Chest: Normal expansion and excursion. There is a right subclavian tunneled hemodialysis catheter i n place. There is no abscess or drainage or tenderness from this area. Extremities: He has what feels like a thrill on the left side, but it feels deep. Otherwise no club tanya, cyanosis, edema. Skin: Warm and dry. Laboratory Data: He had a laboratory exam, which revealed a white blood cell count of 8.2, hemoglobi n 7.7, hematocrit 31%, platelet count is 232. Sodium 135, potassium 3.8, chloride 104 carbon dioxide is 23, BUN 56, creatinine 12. His glucose was 95. Procalamine was 167. He had imaging performed, which included a CT of the head, which showed no acute intracranial abnormality. He had a CT of the chest, abdomen and pelvis which was officially read as no acute or significant abnormalities noted. Assessment And Plan: This is a 63-year-old male who comes in with possible right hemodialysis tunnel ed catheter infection. 1.IV fluid hydration. 2.Antibiotic coverage. 3.I have explained the risks, benefits, and alternatives of removal of the tunneled hemodialysis cat heter and sending it for culture, including but not limited to bleeding, infection, damage to surroun ding tissue, need for further operative procedures, other unforeseen complications including heart at tack, blood clots, strokes, and other unforeseen complication in the perioperative period. In additi on, when we removed the catheter, he will have a line holiday of at least 24 to 48 hours followed by replacement of a tunneled hemodialysis catheter. I have explained the risks, benefits, and alternati ves of replacement of his tunneled hemodialysis catheter including but not limited to bleeding, infec tion, damage to surrounding tissue, need for further operative procedures, blood clots, heart attack, strokes, other unforeseen complication in the perioperative period, unable to complete catheter plac ement due to anatomic or other unknown variables and possible need for temporary hemodialysis cathete r access. The patient displayed understanding of the above-stated plan and agreed to proceed as wade cated. Thank you for this interesting consult. MARK/LINDEN Voice ID: [id number] Report ID: [id number]
--- NOTE | 2024-01-06 22:56 | CON ---
History Of Present Illness: This is a 63-year-old male with significant history of end-stage renal d keron, on hemodialysis. I was consulted for bacteremia and infected hemodialysis catheter, which duran s been removed today by the surgical team. The patient denies any headache, nausea, vomiting, chest pain, abdominal pain, constipation, or diarrhea. The patient has significant past medical history of hypertension, diabetes mellitus, coming in with fever, chills, weakness of 1 day prior to admission. Past Medical History: As per HPI. Social History: Nonsmoker, nondrinker. Family History: Noncontributory. Medications: Cefepime, vancomycin. See MARs for other medications. Allergies: NO KNOWN DRUG ALLERGIES. Review of Systems: A 10-point review was performed. Physical Examination: General: This is a 63-year-old male, lying in bed, not in any acute cardiopulmonary distress. Vital Signs: Temperature 97.3, pulse 73, respirations 16, blood pressure 154/83. HEENT: Unremarkable. Neck: Supple. Lungs: Basilar crackles. Heart: S1, S2. Regular. Abdomen: Soft, nontender. Bowel sounds present. Extremities: No edema. Laboratory Data: Shows WBC 10.4, hemoglobin 10.7, platelets are 256. Chemistry shows BUN of 44, cre atinine 10.7. Albumin level is 2.8. Micro data; blood cultures from 01/02 showing gram-negative regino s. Gram stain showed gram-negative and gram-positive rods. Blood cultures from 01/04, no growth. C hest wound culture pending from today. Assessment And Plan: A 63-year-old male with infected dialysis catheter and bacteremia, currently on vancomycin and cefepime. Recommend to continue antibiotic for a total of 2 weeks after negative cul ture. Wound site management by surgical team. End-stage renal disease, diabetes mellitus, moderate protein-calorie malnourishment. We will follow the patient as needed. Thank you for consult. NF/MODL Voice ID: [id number] Report ID: [id number]
[2024-01-07 02:25] VITALS: BMI 31.8
[2024-01-07 06:24] LABS: Absolute Basophils 0.1 K/uL (0-0.5); Absolute Eosinophils 0.2 K/uL (0-0.5); Absolute Lymphocytes (CBC) 2.2 K/uL (0.7-4.9); Absolute Monocytes 0.8 K/uL (0.1-1.3); Absolute Neutrophil 7.6 K/uL (1.8-8.0); Basophils % 0.7 % (0-1.3); Eosinophils % 1.6 % (0-4.4); Hemoglobin 10.6 g/dL (13.6-17.9); Lymphocytes % 20.6 % (15.3-44.8); MCH 28.9 pg (27.0-35.0); MCHC 33.1 g/dL (32.0-36.0); MCV 87.2 fL (80-100); MPV 8.4 fL (7.6-11.3); Neutrophils % 70.1 % (41.7-73.7); Nucleated Red Blood Cells % 0.1 % (0-0); Platelets 241 thou/uL (152-406); RBC Red Blood Cell Count 3.67 M/uL (4.33-5.43); Red Cell Distribution Width 13.9 % (12.1-15.2)
[2024-01-07 06:57] LABS: Anion Gap 14.2 mEq/L (5.0-15.0); Phosphorus 5.7 mg/dL (2.5-4.9); Potassium 4.2 mEq/L (3.5-5.1)
[2024-01-07 08:22] LABS: Blood Morphology Comment NOT SEEN (NOT SEEN); Platelet Estimate ADEQ; Platelets Clumped FEW; White Blood Cell Scan OK (OK)
--- NOTE | 2024-01-07 08:24 | P.PN ---
Date of Service: 01/07/24 Subjective: HD cath removed yesterday denies further episodes of chills. Last episode during dialysis no events overnight afebrile ROS: 10 point ROS as noted above, otherwise negative Physical Exam: GEN: Alert, NAD CV: Regular rate and rhythm, no edema, systolic murmur Pulm: Nonlabored respirations on room air, clear bilaterally ABD: soft, nontender, nondistended Skin: dressing over HD cath site (removed yesterday) Problem List: Sepsis likely secondary to infected HD tunneled cath, now s/p HD cath removal (01/05) Enterobacter Cloacae bacteremia ESRD on HD Hypertension NIDDM2 Sepsis likely secondary to infected HD tunneled cath, now s/p HD cath removal (01/05) Enterobacter Cloacae bacteremia on admission, presents with intermittent fever for 2-3 days. 101.2 temp in ED. Denies UTI symptoms. Reports being seen at clinic few days ago for fever, given prescription for doxycycline 12/31 felt weak and dizzy while at dialysis prior to admission CT chest/abd negative for any acute findings, noted mild linear atelectasis left lung base. CXR (01/02): mild CHF vs volume overload blood cx (01/02): Enterobacter Cloacae in 2/4 bottles (01/06 now growing GNR not previously seen in addition to GPR). GPR resulted bacillus species that is not anthracis - possible skin contaminant repeat blood cx (01/04): still growing GPR in 1/4 bottles. repeat blood cx (01/06): pending Wound cx from HD site (01/05): pending continue empiric IV cefepime / vanc (01/03-) Suspect bacteremia source from HD tunneled cath line s/p HD cath removal with Dr. Serna (01/05) ID is following - recommending 2 weeks antibiotics starting from the day of first negative blood cultures On line holiday nephro reports fistula may be able to use and may not need HD cath trend procal; improving pain control no exam findings / symptoms of endocarditis. pt reports h/o murmur. check echo ESRD on HD Nephrology consulted for assistance with dialysis Patient had dialysis day before admission further dialysis per nephro Daily labs Hypertension confirm home meds, restart as appropriate NIDDM2 accu-cheks, SSI Code: Full Dispo: Home, ~ 3 days Pending repeat cultures without growth, needs new HD cath vs fistula able to be used pending negative blood cultures as well Time Spent Managing Pts Care (In Minutes): 55
--- NOTE | 2024-01-07 12:07 | EKG ---
Test Date: 2024-01-03 Test Time: 19:01:52 Journalism Intern: MEASUREMENT RESULTS: Intervals: Rate: 89 DC: 166 QRSD: 104 QT: 378 QTc: 459 [place]: P: 69 DC: 166 QRS: -51 T: 99 INTERPRETIVE STATEMENTS: Normal sinus rhythm Left anterior fascicular block Left ventricular hypertrophy with repolarization abnormality Abnormal ECG Compared to ECG 06/02/2023 14:34:49 Left anterior fascicular block now present Early repolarization now present Sinus bradycardia no longer present Left-axis deviation no longer present Electronically Signed On 01-07-24 12:02:57 INSPECTOR RECEIVING by Davidson Ordonez
--- NOTE | 2024-01-07 18:18 | P.PN ---
Nephrology note (S) Delayed entry note, pt seen earlier this AM, TDC removed Sun it appears, repeat culture neg thus far, no fevers or chills reported (O) Vitals reviewed in the EMR General: Alert, In no apparent distress, Cooperative HEENT: Atraumatic, Normocephalic, not on O2 Neck: Supple, Rt iJ TDC removed Respiratory: Normal air movement, Other (No wheezing Cardiovascular: Regular rate/rhythm, mild distal Edema Gastrointestinal: Soft and benign, Non-distended, No tenderness Musculoskeletal: No tenderness, No warmth Integumentary: No rashes Neurological: Normal speech, Normal tone, Normal affect Laboratory Data (last 24 hrs) reviewed in the EMR Conclusions/Impression: A/P) 1. 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 Cont to monitor labs and fluid status closely and daily. Will plan for HD through new TDC inserted either or Sun 2. Fever. Gram negative bacteremia, TDC removed for source control. Repeat culture neg over 24h, ensure neg over 48h. No current leukocytosis, ensure no recurrent fevers. 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
[2024-01-08 07:12] LABS: Hematocrit 31.8 % (39.6-49.0); Hemoglobin 10.6 g/dL (13.6-17.9); MCH 29.3 pg (27.0-35.0); MCHC 33.4 g/dL (32.0-36.0); MCV 87.7 fL (80-100); MPV 7.8 fL (7.6-11.3); Platelets 279 thou/uL (152-406); RBC Red Blood Cell Count 3.62 M/uL (4.33-5.43); Red Cell Distribution Width 14.2 % (12.1-15.2)
[2024-01-08 07:33] LABS: Albumin 2.7 g/dL (3.4-5.0); Anion Gap 13.6 mEq/L (5.0-15.0); Phosphorus 6.7 mg/dL (2.5-4.9); Potassium 4.6 mEq/L (3.5-5.1)
--- NOTE | 2024-01-08 11:37 | ECHO ---
HEIGHT: 5 ft 11 in WEIGHT: 228 lb 3.2 oz DATE OF STUDY: 01/08/[address]: Clif Philippe MD 2-DIMENSIONAL: YES M.MODE: YES DOPPLER: YES COLOR FLOW: YES TDS: NO PORTABLE: YES DEFINITY: NO BUBBLE STUDY: NO DIAGNOSIS: BACTEREMIA, MURMUR, RULE OUT ENDOCARDITIS CARDIAC HISTORY: CATHERIZATION: NO SURGERY: NO PROSTHETIC VALVE: NO PACEMAKER: NO MEASUREMENTS (cm) DIASTOLIC (NORMALS) SYSTOLIC (NORMALS) IVSd 1.4 (0.6-1.2) LA Diam 2.9 (1.9-4.0) LVEF 65% LVIDd 4.4 (3.5-5.7) LVIDs 2.7 (2.0-3.5) %FS 39% LVPWd 1.4 (0.6-1.2) Ao Diam 3.5 (2.0-3.7) 2 DIMENSIONAL ASSESSMENT: RIGHT ATRIUM: NORMAL LEFT ATRIUM: NORMAL RIGHT VENTRICLE: NORMAL LEFT VENTRICLE: MODERATE CONCENTRIC LEFT VENTRICULAR HYPERTROPHY TRICUSPID VALVE: TRACE TRICUSPID REGURGITATION MITRAL VALVE: MILD BEVERLY ANNULAR CALCIFICATION PULMONIC VALVE: NORMAL AORTIC VALVE: NORMAL PERICARDIAL EFFUSION: NONE AORTIC ROOT: NORMAL LEFT VENTRICULAR WALL MOTION: NORMAL. DOPPLER/COLOR FLOW: GRADE I DIASTOLIC DYSFUNCTION. COMMENTS: 1. MODERATE CONCENTRIC LEFT VENTRICULAR HYPERTROPHY. 2. NORMAL LEFT VENTRICULAR SYSTOLIC FUNCTION. LEFT VENTRICULAR EJECTION FRACTION 65%. NORMAL WALL MOTION. 3. GRADE I DIASTOLIC DYSFUNCTION. 4. NORMAL VALVES. 5. NORMAL FILLING PRESSURES. RIGHT ATRIAL PRESSURE 0-5mmHg. TECHNOLOGIST: GABRIEL RANKIN
[2024-01-08] MEDS: cloNIDine HCL 0.1 MG TAB PO SCH (12:21)
--- NOTE | 2024-01-08 12:40 | P.PN ---
Nephrology note (S) Remains afebrile, no acute complaints such as CP, dyspnea, N/V, other. (O) Vitals reviewed in the EMR General: Alert, In no apparent distress, Cooperative HEENT: Atraumatic, Normocephalic, not on O2 Neck: Supple, Rt iJ TDC removed Respiratory: Normal air movement, Other (No wheezing Cardiovascular: Regular rate/rhythm, mild distal Edema Gastrointestinal: Soft and benign, Non-distended, No tenderness Musculoskeletal: No tenderness, No warmth, Lt forearm AVF with thrill Integumentary: No rashes Neurological: Normal speech, Normal tone, Normal affect Laboratory Data (last 24 hrs) reviewed in the EMR Conclusions/Impression: A/P) 1. 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 Pt apparently does have a Lt forearm AVF but status is unclear as staff report that it did appear to be clotted at one point last mo and declot performed but pt did not return to access center for follow up and they did not receive clearance to cannulate fistula so will attempt to use today prior to any attempts to put a new line in 2. Fever. Gram negative bacteremia, unclear if urinary source or other but given indwelling catheter, TDC removed for source control. Repeat culture from and neg thus far. No current leukocytosis, ensure no recurrent fevers. 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 Increase Clonidine to BID as he was prev instructed to take Fito Alvarenga MD, ZOILA
--- NOTE | 2024-01-08 13:35 | PN ---
Subjective: Patient lying in bed. No new acute event. Chart reviewed. Patient's surgery was postp oned for tomorrow. Objective: Vital Signs: Temperature 97.6, pulse 70, respirations 16, blood pressure 160/80. Lungs: Basal crackles. Heart: S1, S2. Regular. Abdomen: Soft, nontender. Bowel sounds present. Extremities: No edema. Laboratory Data: Shows WBC 8.3, hemoglobin 10.6, platelets are 279, BUN of 69, creatinine 13.3. Blo od culture, Enterobacter cloacae. Assessment And Plan: Line sepsis and line infection secondary to Enterobacter cloacae causing bacter emia. Patient is currently on IV antibiotics with cefepime and vancomycin. Continue total course of 14 days. We will follow patient as needed. NF/MODL Voice ID: [id number] Report ID: [id number]
--- NOTE | 2024-01-08 16:22 | P.PN ---
Subjective Date of Service: 01/08/24 Chief Complaint: Fever Patient denies any complaint. No recorded fever. Physical Examination - Vital Signs Temperature: 98.2 F Blood Pressure: 161/82 Pulse: 70 Respirations: 16 Pulse Ox (%): 97 - Studies Microbiology Data (last 24 hrs): 01/03/24 18:32 Blood - Blood Blood Culture Gram Stain - Final 01/03/24 18:32 Blood - Blood Anaerobic Blood Culture - Final 01/03/24 18:32 Blood - Blood Gram Stain - Final Assessment And Plan - Plan Physical Exam: GEN: Alert, NAD CV: Regular rate and rhythm, no edema, systolic murmur Pulm: Nonlabored respirations on room air, clear bilaterally ABD: soft, nontender, nondistended Skin: dressing over HD cath site. Diagnosis Sepsis likely secondary to infected HD tunneled cath, now s/p HD cath removal (01/05) Enterobacter Cloacae bacteremia ESRD on HD Hypertension NIDDM2 Sepsis likely secondary to infected HD tunneled cath, now s/p HD cath removal (01/05) Enterobacter Cloacae bacteremia on admission, presents with intermittent fever for 2-3 days. 101.2 temp in ED. Reports being seen at clinic few days ago for fever, given prescription for doxycycline 12/31 felt weak and dizzy while at dialysis prior to admission CT chest/abd negative for any acute findings. CXR (01/02): mild CHF vs volume overload blood cx (01/02): Enterobacter Cloacae in 2/4 bottles (01/06 now growing GNR not previously seen in addition to GPR). GPR resulted bacillus species that is not anthracis - possible skin contaminant repeat blood cx (01/04): still growing GPR in 1/4 bottles. repeat blood cx (01/06): 1 out of 4 bottles growing gram-positive. Wound cx from HD site (01/05): GNR continue empiric IV cefepime / vanc (01/03-) Suspect bacteremia source from HD tunneled cath line s/p HD cath removal with Dr. Serna (01/05) GPR sent for organism identification and sensitivity ID is following - recommending 2 weeks antibiotics starting from the day of first negative blood cultures On line holiday nephro reports fistula may be able to use and may not need HD cath pain control no exam findings / symptoms of endocarditis. pt reports h/o murmur. TTE: No endocarditis. ESRD on HD Nephrology is following and managing further dialysis per nephro Daily labs Hypertension Continue home antihypertensives and titrate. Code: Full Dispo: Home.
[2024-01-08 22:45] VITALS: O2SAT 97
[2024-01-08] MEDS: HYDROCODONE/APAP 5/325 MG TAB PO PRN (23:02)
[2024-01-09 06:39] LABS: Albumin 2.8 g/dL (3.4-5.0); Anion Gap 12.5 mEq/L (5.0-15.0); Phosphorus 6.9 mg/dL (2.5-4.9); Potassium 4.5 mEq/L (3.5-5.1)
[2024-01-09 09:42] VITALS: BP 171/95; TEMP 97.7
--- NOTE | 2024-01-09 11:17 | P.PN ---
Nephrology note (S) Pt seen on HD, Lt UE AVF cannulated wiht 16g x 2, no acute issues (O) Vitals reviewed in the EMR General: Alert, In no apparent distress, Cooperative HEENT: Atraumatic, Normocephalic, not on O2 Neck: Supple, Rt iJ TDC removed Respiratory: Normal air movement, Other (No wheezing Cardiovascular: Regular rate/rhythm, mild distal Edema Gastrointestinal: Soft and benign, Non-distended, No tenderness Musculoskeletal: No tenderness, No warmth, Lt forearm AVF with thrill Integumentary: No rashes Neurological: Normal speech, Normal tone, Normal affect Laboratory Data (last 24 hrs) reviewed in the EMR Conclusions/Impression: A/P) 1. 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 TDC not required. Unit given orders to cannulate fistula upon return, next HD will be OP on Sun 2. Fever. Gram negative bacteremia, unclear if urinary source or other but given indwelling catheter, TDC removed for source control. Repeat culture from and neg thus far but initial BCx also showed some bacillus growth. 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 Increased Clonidine to BID as he was prev instructed to take Fito Alvarenga MD, ZOILA
--- NOTE | 2024-01-09 14:28 | P.DS ---
Admission Date: 01/04/24 Discharge Date: 01/09/24 Disposition: ROUTINE DISCHARGE Discharge Condition: GOOD Reason for Admission: Fever Brief History of Present Illness: 62-year-old male with past medical history of hypertension , DM and end-stage renal disease on dialysis presented with complaints of Fever, chills of 1 day duration and generalized weakness of 2 days duration. Patient had dialysis the day before presentation. The patient was assessed in the ER, noted to have fever and leukocytosis and met criteria for sepsis. UA suggested UTI. Patient was admitted for further management of sepsis. Hospital Course: Diagnosis Sepsis likely secondary to infected HD tunneled cath, now s/p HD cath removal (01/05) Enterobacter Cloacae bacteremia ESRD on HD Hypertension NIDDM2 Patient admitted to the medical floor and the following medical problems addressed: Sepsis likely secondary to infected HD tunneled cath, now s/p HD cath removal (01/05) Enterobacter Cloacae bacteremia on admission, presents with intermittent fever for 2-3 days. 101.2 temp in ED. felt weak and dizzy while at dialysis prior to admission CT chest/abd negative for any acute findings. CXR (01/02): mild CHF vs volume overload blood cx (01/02): Enterobacter Cloacae in 2/4 bottles. Serial blood culture grew also GPR in 1/4 bottles. GPR resulted bacillus species that is not anthracis - possible skin contaminant repeat blood cx (01/04): still growing GPR in 1/4 bottles. repeat blood cx (01/06): 1 out of 4 bottles growing gram-positive. Wound cx from HD site (01/05): GNR Patient treated with empiric IV cefepime / vanc (01/03-) Suspect bacteremia source from HD tunneled cath line s/p HD cath removal by Dr. Serna (01/05) GPR sent for organism identification and sensitivity ID is following - recommending 2 weeks antibiotics starting from the day of first negative blood cultures nephro reports patient left AV fistula is functional and does not need HD cath replacement. pain control no exam findings or symptoms of endocarditis. pt reports h/o murmur. TTE: No endocarditis. Patient evaluated by nephrology and deemed stable for discharge. He will continue IV cefepime with dialysis. Oral Levaquin at that to cover gram-positive regino infection which may be bacillus. ESRD on HD Nephrology managed hemodialysis Patient underwent sessions of hemodialysis Hypertension Continued home antihypertensives. Clonidine titrated up to 0.2 mg twice daily. Continue hydralazine, nifedipine and losartan home doses. Vital Signs/Physical Exam: Temp Pulse Resp BP Pulse Ox 97.7 F 69 20 171/95 H 98 01/09/24 08:00 01/09/24 08:00 01/09/24 08:00 01/09/24 08:00 01/09/24 08:00 General: Alert, In no apparent distress, Oriented x3 HEENT: Mucous membr. moist/pink, Scleral icterus Neck: Supple, JVD not distended Respiratory: Clear to auscultation bilaterally, Normal air movement Cardiovascular: No edema, Regular rate/rhythm Capillary refill: <2 Seconds Gastrointestinal: Normal bowel sounds, Soft and benign, Non-distended, No tenderness Musculoskeletal: No swelling Integumentary: No rashes, No tenderness/swelling Neurological: Normal strength at 5/5 x4 extr, Cranial nerves 3-12 intact Laboratory Data at Discharge: WBC 8.30 thou/uL (4.3-10.9) 01/08/24 06:06 Hgb 10.6 g/dL (13.6-17.9) L 01/08/24 06:06 Hct 31.8 % (39.6-49.0) L 01/08/24 06:06 Plt Count 279 thou/uL (152-406) 01/08/24 06:06 PT 13.9 SECONDS (9.4-12.5) H 01/03/24 18:32 INR 1.25 01/03/24 18:32 APTT 27.1 SECONDS (24.3-36.9) 01/03/24 18:32 Sodium 139 mEq/L (136-145) 01/09/24 05:24 Potassium 4.5 mEq/L (3.5-5.1) 01/09/24 05:24 BUN 72 mg/dL (7-18) H 01/09/24 05:24 Creatinine 13.60 mg/dL (0.70-1.30) H 01/09/24 05:24 Glucose 102 mg/dL (74-106) 01/09/24 05:24 Phosphorus 6.9 mg/dL (2.5-4.9) H 01/09/24 05:24 Magnesium 2.0 mg/dL (1.6-2.4) 01/06/24 08:30 Total Bilirubin 0.5 mg/dL (0.2-1.0) 01/06/24 08:30 AST 13 U/L (15-37) L 01/06/24 08:30 ALT < 14 U/L (16-61) L 01/06/24 08:30 Alkaline Phosphatase 67 U/L (45-117) 01/06/24 08:30 Home Medications: Furosemide [Lasix] 40 mg PO BID 7 Days #14 tab 06/03/23 Hydralazine [Apresoline*] 50 mg PO TID 30 Days #90 tab 06/03/23 Losartan Potassium [Cozaar*] 50 mg PO BID 90 Days #180 tab 06/03/23 Na Bicarb Tab [Sodium Bicarb 325 MG Tab*] 325 mg PO BID 7 Days #14 tab 06/03/23 Nifedipine [Procardia Xl] 60 mg PO BID 30 Days #60 tab 06/03/23 Hydrocodone 5/APAP 325 [[place] 5/325*] 1 tab PO Q4H PRN #12 tab 01/09/24 cloNIDine HCL [Catapres*] 0.2 mg PO BID #60 tab 01/09/24 levoFLOXacin [Levaquin] 500 mg PO Q48H #7 tab 01/09/24 New Medications: cloNIDine HCL [Catapres*] 0.2 mg PO BID #60 tab levoFLOXacin [Levaquin] 500 mg PO Q48H #7 tab Hydrocodone 5/APAP 325 [[place] 5/325*] 1 tab PO Q4H PRN #12 tab PRN Reason: Pain Scale 5-7 (Moderate) Diet: Renal Activity: Ad sergio Followup: Fito Alvarenga [ACTIVE - CAN ADMIT] - 1-2 Weeks Derek Serna MD [ACTIVE - CAN ADMIT] - 1-2 Weeks NONE,NONE [Primary Care Provider] - Time spent managing pt's care (in minutes): 34
== END 2024-01-09 15:54 | disposition home or self-care (01) | DRG 314 ==
LOC: ER 17:28 → ERHOLD 01-04 01:01 → 4TH 01-04 08:26
PROVIDERS: ADMIT Family Medicine; ATTEND Internal Medicine
PROC: 5A1D70Z Performance of Urinary Filtration, Intermittent, Less than 6 Hours Per Day (ICD-10-PCS; 2024-01-05)
PROC: 02PY33Z Removal of Infusion Device from Great Vessel, Percutaneous Approach (ICD-10-PCS; 2024-01-06)
PROC: 0JPT0XZ Removal of Tunneled Vascular Access Device from Trunk Subcutaneous Tissue and Fascia, Open Approach (ICD-10-PCS; principal; 2024-01-06 09:30)
DX: T80.211A Bloodstream infection due to central venous catheter, initial encounter (principal); A41.89 Other specified sepsis; N18.6 End stage renal disease; I50.32 Chronic diastolic (congestive) heart failure; I13.2 Hypertensive heart and chronic kidney disease with heart failure and with stage 5 chronic kidney disease, or end stage renal disease; N30.01 Acute cystitis with hematuria; E44.0 Moderate protein-calorie malnutrition; E11.22 Type 2 diabetes mellitus with diabetic chronic kidney disease; D63.1 Anemia in chronic kidney disease; E88.09 Other disorders of plasma-protein metabolism, not elsewhere classified; Z99.2 Dependence on renal dialysis; Z68.31 Body mass index [BMI] 31.0-31.9, adult; Z79.899 Other long term (current) drug therapy
CPT/HCPCS: 36415; 70450; 71045; 71250; 74176; 80048; 80053; 80069; 80202; 81001; 83605; 83735; 84100; 84145; 85025; 85027; 85610; 85730; 87040; 87070; 87077; 87086; 87088; 87186; 87205; 87804; 87811; 88300; 90935; 93005; 93306; 94760; 96365; 99284; J0692; J1100; J1644; J2250; J2405; J2704; J3010; J7040; J7050; Q4081

== ENCOUNTER 2024-01-12 12:38 | Emergency (ER) | payer OTHER ==
--- OUTSIDE RECORDS SUMMARY | 2024-01-12 12:44 | XMS REPORT | Continuity of Care Document ---
Author Name Unknown Address [address] [facility] [address] [place] [id number] [facility] Address [address] [facility] [address] [place] [address] Care Team Providers Care As400 Operator Name Role Phone PCP, PATIENT DOES NOT HAVE A Primary Care Physic carlita Unavailable REAL ROBERT Attending Clinician Unavailable Real Robert MD Attending Clinician [phone] TAMAR SCHMIDT Attending Clinician Unavailced connor Pob, [facility] Main Attending Clinician UnavailIleana Goss MD Attending Clinician [phone] ILEANA HENDRICKSON Attending Clinician UnavailTamar Gillespie Attending Clinician + [phone] RASHEEDA RIOJAS Attending Clinician Unavailable Rasheeda Riojas MD Attending Clinician [phone] Doctor Unassigned, [place] Attending Clinician U lucho Lopez MD, Yohannes K.HSuad Attending Clinician + [phone] MOE VALLEJO Attending Clinician Unavailable Anitra Yen NP Attending Clinician [phone] Moe Vallejo MD Attending Clinician [phone] CADEN HANNA Attending Clinician Unavailable CHELA TREVIÑO Attending Clinician Unavailable PHILLIP PATEL Attending Clinician Unavailable CARLOS GUZMAN Attending Clinician Unavailab CARLOS Mckeon Attending Clinician Unavailab Alyssa Paris LVN Attending Clinician [phone] Josiah Combs MD Attending Clinician [phone] Bridgett RUSSELL, Juan F Attending Clinician [phone] [place] RUSSELL, Chela Attending Clinician [phone] EMIL RAMACHANDRAN Attending Clinician Unavailable Emil Ramachandran MD Attending Clinician [phone] Drew SHAW, Cheryl Connor Attending Clinician [phone] Navarro Cat DO Attending Clinician [phone] BARBIE MEJÍA Attending Clinician Unavail able BRYAN SHERMAN Attending Clinician Unavailable Natanael Hendrix MD Attending Clinician [phone] [place] RUSSELL, Urban Attending Clinician [phone] YOHANNES LOPEZ Attending Clinician UnavailNori Chandler Attending Clinician Unavailable REAL ROBERT Admitting Clinician Unavailable Real Robert MD Admitting Clinician [phone] RASHEEDA RIOJAS Admitting Clinician Unavailable MOE VALLEJO Admitting Clinician Unavailable Moe Vallejo MD Admitting Clinician [phone] JUAN F BOYD Admitting Clinician Unavailable Juan F Boyd MD Admitting Clinician [phone] EMIL RAMACHANDRAN Admitting Clinician Unavailable Emil Ramachandran MD Admitting Clinician [phone] [place] MD Admitting Clinician [phone] Payers Payer Name Policy Type Policy Number Effective Date Expirati on Date Source [facility] [id number] 2023 00:00:00 MEDICAID PENDING PENDING 2020 00:00:00 Problems Condition Name Condition Details Condition Category Status Onset Date Resolution Date Last Treatment Date Treating Clinician Comments Source ESRD (end stage renal disease) ESRD (end stage renal disease) Disease Active 2023-02 00:00: 00 [facility] Malfunctio n of arterioven ous dialysis fistula, initial encounter Malfunctio n of arterioven ous dialysis fistula, initial encounter Disease Active 2024-1 0-03 00:00: 00 [facility] ESRD (end stage renal disease) on dialysis ESRD (end stage renal disease) on dialysis Disease Active 6-27 00:00: 00 [facility] Hypertensi ve emergency Hypertensi ve emergency Disease Active 9-12 00:00: 00 [facility] Left leg cellulitis Left leg cellulitis Disease Active 6- 00:00: 00 [facility] BELL (acute kidney injury) BELL (acute kidney injury) Disease Active 424 00:00: 00 [facility] [id number] radha premature ovarian failure [id number]-hpky radha premature ovarian failure Disease Active 24 00:00: 00 [facility] Coronary artery disease involving qagan tayagungin coronary artery of qagan tayagungin heart without angina pectoris Coronary artery disease involving qagan tayagungin coronary artery of qagan tayagungin heart without angina pectoris Disease Active 4 00:00: 00 [facility] PAD (periphera l artery disease) PAD (periphera l artery disease) Disease Active 424 00:00: 00 [facility] Elevated brain natriureti c peptide (BNP) level Elevated brain natriureti c peptide (BNP) level Disease Active 06-05 00:00: 00 [facility] Coronary artery disease involving qagan tayagungin coronary artery of qagan tayagung[place] heart without angina pectoris Coronary artery disease involving qagan tayagungin coronary artery of qagan tayagungin heart without angina pectoris Disease Active 424 00:00: 00 [facility] Acute renal failure superimpos ed on stage 3 chronic kidney disease Acute renal failure superimpos ed on stage 3 chronic kidney disease Disease Active 424 00:00: 00 [facility] Elevated brain natriureti c peptide (BNP) level Elevated brain natriureti c peptide (BNP) level Disease Active 424 00:00: 00 [facility] Hypertensi ve urgency Hypertensi ve urgency Disease Active 4-23 00:00: 00 [facility] HTN (hypertens ion) HTN (hypertens ion) Disease Active 420 00:00: 00 [facility] Essential hypertensi on Essential hypertensi on Disease Active 8 00:00: 00 [facility] Stage 3 chronic kidney disease Stage 3 chronic kidney disease Disease Active 8 00:00: 00 [facility] History of cocaine abuse History of cocaine abuse Disease Active 8 00:00: 00 [facility] Elevated troponin Elevated troponin Disease Active 09-03 00:00: 00 [facility] Elevated troponin Elevated troponin Disease Active 09-03 00:00: 00 [facility] Dizziness Dizziness Disease Active 2017-02 00:00: 00 [facility] Obesity (BMI 30-39.9) Obesity (BMI 30-39.9) Disease Active 07-02 00:00: 00 [facility] Allergies, Adverse Reactions, Alerts Allergy Name Allergy Type Status Severity Reaction(s) Onset Date Inactive Date Treating Clinician Comments Source NO KNOWN ALLERGIE S Drug Class Active [facility] Social History Social Habit Start Date Stop Date Quantity Comments Source History of tobacco use Passive smoker [facility] History SDOH Alcohol Std Drinks [facility] History SDOH Alcohol Binge [facility] History SDOH Social Connections Get Together [facility] History SDOH Social Connections Congregation [facility] History SDOH Social Connections Membership [facility] History SDOH Social Connections Meetings [facility] Alcoholic beverage intake 2023-12-13 00:00:00 2023-12-13 00:00:00 Ex-drinker (finding) [facility] Tobacco use and exposure 2023-11-19 00:00:00 2023-11-19 00:00:00 Smokeless tobacco non-user [facility] History of Social function 2023-10-11 00:00:00 2023-10-11 00:00:00 [facility] Alcohol intake 2022-10-24 00:00:00 2022-10-24 00:00:00 Ex-drinker (finding) [facility] Cigarettes smoked current (pack per day) - Reported 2022-07-15 00:00:00 2022-07-15 00:00:00 [facility] History SDOH Alcohol Frequency 2022-07-14 00:00:00 2022-07-14 00:00:00 1 [facility] History SDOH Social Connections Phone 2022-07-14 00:00:00 2022-07-14 00:00:00 5 [facility] History SDOH Social Connections Living 2022-07-14 00:00:00 2022-07-14 00:00:00 7 [facility] History SDOH Physical Activity DPW 2022-07-14 00:00:00 2022-07-14 00:00:00 3 [facility] History SDOH Physical Activity MPS 2022-07-14 00:00:00 2022-07-14 00:00:00 2 [facility] History SDOH Housing Unable to Pay 2022-07-14 00:00:00 2022-07-14 00:00:00 2 [facility] History SDOH Housing Places Lived 2022-07-14 00:00:00 2022-07-14 00:00:00 1 [facility] History SDOH Housing Homeless Last Year 2022-07-14 00:00:00 2022-07-14 00:00:00 2 [facility] History SDOH Financial 2022-07-14 00:00:00 2022-07-14 00:00:00 5 [facility] History SDOH Food Worry 2022-07-14 00:00:00 2022-07-14 00:00:00 1 [facility] History SDOH Food Scarcity 2022-07-14 00:00:00 2022-07-14 00:00:00 1 [facility] History SDOH Transport Med 2022-07-14 00:00:00 2022-07-14 00:00:00 2 [facility] History SDOH Transport Non-Med 2022-07-14 00:00:00 2022-07-14 00:00:00 2 [facility] Education 2022-07-13 00:00:00 2022-07-13 00:00:00 14 [facility] Exposure to SARS-CoV-2 (event) 2021-05-25 00:00:00 2021-06-04 11:38:00 Not sure [facility] Sex assigned at 1960 00:00:00 1960 00:00:00 [facility] Smoking Status Start Date Stop Date Source Ex-smoker 2023-11-19 00:00:00 2023-11-19 00:00:00 [facility] Occasional tobacco smoker 2023-10-11 00:00:00 [facility] Current every day smoker 2020-06-01 00:00:00 [facility] Medications Ordered Medication Name Filled Medication Name Start Date Stop Date Current Medication? Ordering Clinician Indication Dosage Frequency Signature (SIG) Comments Components Source HYDROcodone -acetaminop hen (NORCO 5) tablet 1 tablet 2023-02 14:30: 00 11-28 14:39 :00 No 1{tbl} 1 tablet, Oral, ONCE, 1 dose, On Leslee 11/29/23 at 0930, Routine, PACU [facility] FENTanyl (PF) (SUBLIMAZE) injection 25 mcg 2023-02 14:21: 19 11-28 17:45 :17 No 25ug 25 mcg, Slow IV Push, Q5MIN PRN, 4 doses, Starting on Leslee 11/29/23 at 0921, Until Leslee 11/29/23 at 1245, Routine, Pain Scale 4-6, PACU [facility] ondansetron (ZOFRAN (PF)) injection 4 mg 2023-02 14:21: 19 11-28 17:45 :17 No 4mg 4 mg, Slow IV Push, PRN, 1 dose, Starting on Leslee 11/29/23 at 0921, Until Leslee 11/29/23 at 1245, Routine, Nausea and Vomiting (N/V), PACU [facility] heparin 5,000 unit/mL 2,000 Units in NaCl 0.9% (NS) 500 mL OR irrigation 2023-02 13:16: 00 Yes PRN, Starting on Leslee 11/29/23 at 0816, Intra-op [facility] iohexoL (OMNIPAQUE 300-50 mL)) injection 2023-02 13:16: 00 11-28 14:10 :44 No PRN, Starting on Leslee 11/29/23 at 0816, Until Leslee 11/29/23 at 0910, Routine, Intra-op [facility] lidocaine 1% (PF) (XYLOCAINE) injection 2023-02 13:16: 00 11-28 14:10 :44 No PRN, Starting on Leslee 11/29/23 at 0816, Until Leslee 11/29/23 at 0910, Routine, Intra-op [facility] FENTanyl PF (SUBLIMAZE (PF)) injection 25 mcg 08-27 17:11: 52 08-27 20:26 :19 No 25ug 25 mcg, Slow IV Push, Q5MIN PRN, 4 doses, Starting on Sun08/28/23 at 1211, Until Sun08/28/23 at 1526, Routine, Pain (scale 7-10), PACU [facility] ondansetron (ZOFRAN (PF)) injection 4 mg 08-27 17:11: 52 08-27 20:26 :19 No 4mg 4 mg, Slow IV Push, PRN, 1 dose, Starting on Sun08/28/23 at 1211, Until Sun08/28/23 at 1526, Routine, Nausea and Vomiting (N/V), PACU [facility] heparin 10,000 units in NS 1000 mL for irrigation 08-27 14:47: 00 08-27 17:16 :56 No PRN, Starting on Sun08/28/23 at 0947, Until Sun08/28/23 at 1216, 500 mL, Intra-op [facility] NaCl 0.9% (NS) IV infusion 1,000 mL 08-27 12:30: 00 08-27 20:26 :19 No 1000mL at 42 mL/hr, IV Infusion, CONTINUOUS , Starting on Sun08/28/23 at 0730, Until Sun08/28/23 at 1526, Routine, CV Preprocedu re [facility] acetaminoph en (TYLENOL EXTRA STRENGTH) 500 mg tablet 08-27 00:00: 00 Yes [id number] 500mg Take 1 tablet by mouth every 6 (six) hours as needed for Pain. [facility] HYDROcodone -acetaminop hen 5-325 mg tablet 08-27 00:00: 00 09-04 04:59 :00 No [id number] 1{tbl} Take 1 tablet by mouth every 6 (six) hours as needed for Pain (scale 7-10) for up to 7 days. Indication s: acute pain [facility] cloNIDine 0.1 mg tablet 08-16 09:56: 04 Yes .2mg Take 2 tablets by mouth in the morning and 2 tablets in the evening. [facility] losartan 50 mg tablet 08-16 09:56: 04 Yes 50mg Take 1 tablet by mouth in the morning and 1 tablet in the evening. [facility] furosemide 40 mg tablet 08-16 09:56: 04 11-28 00:00 :00 No 40mg Take 1 tablet by mouth in the morning. [facility] folic acid/vit B complex and C (NEPHRO-VIT E ORAL) 08-16 09:56: 04 11-28 00:00 :00 No Take by mouth. [facility] doxazosin 2 mg tablet 10-28 00:00: 00 11-28 04:59 :00 No [id number] 2mg Take 1 tablet by mouth in the morning for 30 days. [facility] isosorbide mononitrate 60 mg 24 hr tablet 10-28 00:00: 00 11-28 04:59 :00 No [id number] 60mg Take 1 tablet by mouth in the morning for 30 days. [facility] doxazosin (CARDURA) tablet 2 mg 10-27 19:15: 00 Yes 2mg 2 mg, Oral, DAILY, First dose on Sun10/27/22 at 1415, Until Discontinu ed, Routine [facility] carvediloL (COREG) 12.5 mg tablet 10-27 18:47: 34 11-28 00:00 :00 No 12.5mg Take 1 tablet by mouth in the morning and 1 tablet in the evening. Take with meals. [facility] hydrALAZINE 100 mg tablet 10-27 18:47: 34 11-28 00:00 :00 No 100mg Take 1 tablet by mouth in the morning and 1 tablet at noon and 1 tablet in the evening. [facility] amLODIPine 10 mg tablet 10-27 18:47: 34 11-28 00:00 :00 No 10mg Take 1 tablet by mouth in the morning. [facility] NIFEdipine ER tablet 60 mg 10-27 13:00: 00 Yes 60mg 60 mg, Oral, BID, First dose (after last modificati on) on Sun10/27/22 at 0800, Until Discontinu ed, Routine [facility] NIFEdipine ER tablet 30 mg 10-27 02:15: 00 10-27 01:34 :00 No 30mg 30 mg, Oral, ONCE, 1 dose, On Sun10/26/22 at 2115, Routine [facility] NIFEdipine ER 60 mg tablet 10-27 00:00: 00 11-27 04:59 :00 No [id number] 60mg Take 1 tablet by mouth in the morning and 1 tablet in the evening. Do all this for 30 days. [facility] NIFEdipine ER tablet 30 mg 10-26 13:00: 00 10-27 01:13 :30 No 30mg 30 mg, Oral, BID, First dose on Sun10/26/22 at 0800, Until Discontinu ed, Routine [facility] carvediloL (COREG) tablet 12.5 mg 10-25 14:45: 00 Yes 12.5mg 12.5 mg, Oral, BID MEALS, First dose on 9/13/23 at 0945, Until Discontinu ed, Routine [facility] isosorbide mononitrate (IMDUR) 24 hr tablet 60 mg 10-25 14:00: 00 Yes 60mg 60 mg, Oral, DAILY, First dose (after last modificati on) on Sun10/25/22 at 0900, Until Discontinu ed, Routine [facility] sulfur hexafluorid e microsphr (LUMASON) injection 5 mL 10-25 13:29: 00 10-25 13:45 :00 No [id number] 5mL 5 mL, Intravenou s, ONCE, 1 dose, On Sun10/25/22 at 0829, Routine
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 Restricted medication : CADEN HANNA [facility] heparin (porcine) injection 5,000 Units 10-25 01:00: 00 Yes 5000U 5,000 Units, Subcutaneo us, Q12H, First dose on Sun10/24/22 at 2000, Until Discontinu ed, Routine [facility] hydrALAZINE (APRESOLINE ) tablet 100 mg 10-24 20:00: 00 Yes 100mg 100 mg, Oral, TID, First dose on Sun10/24/22 at 1500, Until Discontinu ed, Routine [facility] aspirin chewable tablet 81 mg 10-24 20:00: 00 Yes 81mg 81 mg, Oral, DAILY, First dose on Sun10/24/22 at 1500, Until Discontinu ed, Routine [facility] isosorbide mononitrate (IMDUR) 24 hr tablet 30 mg 10-24 20:00: 00 10-25 00:35 :04 No 30mg 30 mg, Oral, DAILY, First dose on Sun10/24/22 at 1500, Until Discontinu ed, Routine [facility] amLODIPine (NORVASC) tablet 10 mg 10-24 20:00: 00 10-25 21:08 :19 No 10mg 10 mg, Oral, DAILY, First dose on Sun10/24/22 at 1500, Until Discontinu ed, Routine [facility] ondansetron (ZOFRAN (PF)) injection 4 mg 10-24 19:53: 55 Yes 4mg 4 mg, Slow IV Push, Q6HPRN, Starting on Sun10/24/22 at 1453, Until Discontinu ed, Routine, Nausea and Vomiting (N/V) [facility] acetaminoph en (TYLENOL) tablet 650 mg 10-24 19:53: 44 Yes 650mg 650 mg, Oral, Q6HPRN, Starting on Sun10/24/22 at 1453, Until Discontinu ed, Routine, Pain (scale 1-3), Temp > 38 C [facility] hydralAZINE (APRESOLINE ) injection 10 mg 10-24 19:50: 42 Yes 10mg 10 mg, Slow IV Push, Q4HPRN, Starting on Sun10/24/22 at 1450, Until Discontinu ed, Routine, DBP=>100; SBP=>180 [facility] hydralAZINE (APRESOLINE ) injection 10 mg 10-24 17:00: 00 10-24 17:02 :00 No 10mg 10 mg, Slow IV Push, ONCE, 1 dose, On Sun10/24/22 at 1200, IRVIN [facility] povidone-io dine 10 % solution 07-17 00:00: 00 10-27 00:00 :00 No [id number] Apply to area(s) daily. [facility] amLODIPine 10 mg tablet 07-17 00:00: 00 08-17 04:59 :00 No [id number] 10mg Take 1 tablet by mouth in the morning for 30 days. [facility] levoFLOXaci n (LEVAQUIN) tablet 500 mg 07-16 23:00: 00 07-24 22:59 :00 No 500mg 500 mg, Oral, Q48H, 4 doses, First dose on 07/16/22 at 1800, Last dose on 07/22/22 at 1800, Routine
Reason for Anti-Infec tive: Documented Infection< br>Documen radha Infection Site: Skin / Soft Tissue
Duration of Therapy: 10 days [facility] carvediloL 12.5 mg tablet 07-16 14:22: 08 07-16 00:00 :00 No 12.5mg Take 1 tablet by mouth in the morning and 1 tablet in the evening. Take with meals. [facility] carvediloL (COREG) tablet 12.5 mg 07-16 13:00: 00 Yes 12.5mg 12.5 mg, Oral, BID MEALS, First dose on 07/16/22 at 0800, Until Discontinu ed, Routine [facility] hydrALAZINE (APRESOLINE ) tablet 100 mg 07-16 01:00: 00 Yes 100mg 100 mg, Oral, TID, First dose (after last modificati on) on 07/15/22 at 2000, Until Discontinu ed, Routine [facility] carvediloL 12.5 mg tablet 07-16 00:00: 00 08-16 04:59 :00 No [id number] 12.5mg Take 1 tablet by mouth in the morning and 1 tablet in the evening. Take with meals. Do all this for 30 days. [facility] hydrALAZINE 100 mg tablet 07-16 00:00: 00 08-16 04:59 :00 No [id number] 100mg Take 1 tablet by mouth in the morning and 1 tablet at noon and 1 tablet in the evening. Do all this for 30 days. [facility] levoFLOXaci n 500 mg tablet 07-16 00:00: 00 07-25 04:59 :00 No [id number] 500mg Take 1 tablet by mouth every 48 (forty-eig ht) hours for 8 days. [facility] clindamycin 300 mg capsule 07-16 00:00: 00 07-24 04:59 :00 No [id number] 300mg Take 1 capsule by mouth 4 (four) times daily for 7 days. [facility] HYDROcodone -acetaminop hen 5-325 mg tablet 07-16 00:00: 00 07-24 04:59 :00 No [id number] 1{tbl} Take 1 tablet by mouth every 6 (six) hours as needed for Pain (scale 7-10) for up to 7 days. Indication s: acute pain [facility] HYDROcodone -acetaminop hen (NORCO 5) 5-325 mg tablet 1 tablet 07-15 19:30: 00 07-15 19:44 :00 No 1{tbl} 1 tablet, Oral, ONCE, 1 dose, On 07/15/22 at 1430, Routine, PACU [facility] lidocaine 1% (PF) (XYLOCAINE) injection 07-15 18:57: 00 07-15 19:13 :43 No PRN, Starting on 07/15/22 at 1357, Until 07/15/22 at 1413, Routine, Intra-op [facility] sodium chloride 0.9 % irrigation solution 07-15 18:52: 00 07-15 19:13 :43 No PRN, Starting on 07/15/22 at 1352, Until 07/15/22 at 1413, Intra-op [facility] povidone-io dine (BETADINE) 10 % solution 07-15 14:00: 00 Yes Topical, DAILY, First dose (after last modificati on) on 07/15/22 at 0900, Until Discontinu ed, Routine [facility] levoFLOXaci n in D5W (LEVAQUIN) 750 mg/150 mL Piggyback 750 mg 07-14 22:15: 00 07-15 00:20 :00 No 750mg 750 mg, IV Piggyback, at 100 mL/hr Administer over 90 Minutes, ONCE, 1 dose, On Sun07/14/22 at 1715, IRVIN
Re ason for Anti-Infec tive: Documented Infection< br>Documen radha Infection Site: Skin / Soft Tissue
Duration of Therapy: 7 days [facility] aspirin chewable tablet 81 mg 07-14 14:00: 00 Yes 81mg 81 mg, Oral, DAILY, First dose on Sun07/14/22 at 0900, Until Discontinu ed, Routine [facility] enoxaparin (LOVENOX) injection 30 mg 07-14 14:00: 00 Yes 30mg 30 mg, Subcutaneo us, DAILY, First dose on Sun07/14/22 at 0900, Until Discontinu ed, Routine [facility] hydrALAZINE (APRESOLINE ) tablet 50 mg 07-14 13:00: 00 07-15 23:05 :14 No 50mg 50 mg, Oral, TID, First dose (after last modificati on) on Sun07/14/22 at 0800, Until Discontinu ed, Routine [facility] cloNIDine (CATAPRES) tablet 0.1 mg 07-14 11:09: 31 Yes .1mg 0.1 mg, Oral, TIDPRN, Starting on Sun07/14/22 at 0609, Until Discontinu ed, Routine, For SBP > 160, DBP > 100 [facility] clindamycin in 5 % dextrose (CLEOCIN) 600 [...] After Hours (for ADC, CLC, LCC ONLY) [facility] amLODIPine (NORVASC) tablet 10 mg 07-14 09:30: 00 Yes 10mg 10 mg, Oral, DAILY, First dose (after last modificati on) on Sun07/14/22 at 0430, Until Discontinu ed, Routine [facility] hydrALAZINE (APRESOLINE ) tablet 50 mg 07-14 03:30: 00 07-14 11:07 :50 No 50mg 50 mg, Oral, BID, First dose on Sun07/13/22 at 2230, Until Discontinu ed, Routine [facility] losartan (COZAAR) tablet 50 mg 07-14 03:30: 00 07-14 09:28 :03 No 50mg 50 mg, Oral, DAILY, First dose on Sun07/13/22 at 2230, Until Discontinu ed, Routine [facility] labetaloL (NORMODYNE) injection 10 mg 07-14 03:22: 41 Yes 10mg 10 mg, Slow IV Push, Q4HPRN, Starting on Sun07/13/22 at 2222, Until Discontinu ed, Routine, For SBP > 160, DBP > 100, HR > 60. Hold for SBP < 110, DBP < 60. HR < 60 [facility] hydralAZINE (APRESOLINE ) injection 10 mg 07-14 03:22: 26 Yes 10mg 10 mg, Slow IV Push, Q4HPRN, Starting on Sun07/13/22 at 222, Until Discontinu ed, Routine, DBP=>100; SBP=>160 [facility] hydralAZINE (APRESOLINE ) injection 10 mg 07-14 02:15: 00 07-14 02:23 :00 No 10mg 10 mg, Slow IV Push, ONCE, 1 dose, On Sun07/13/22 at 2114, IRVIN [facility] HYDROcodone -acetaminop hen (NORCO) 10-325 mg tablet 1 tablet 07-14 01:57: 07 Yes 1{tbl} 1 tablet, Oral, Q6HPRN, Starting on Sun07/13/22 at 2056, Until Discontinu ed, Routine, Pain (scale 7-10) [facility] acetaminoph en (TYLENOL) tablet 650 mg 07-14 01:56: 54 Yes 650mg 650 mg, Oral, Q6HPRN, Starting on Sun07/13/22 at 2056, Until Discontinu ed, Routine, Pain (scale 1-3) [facility] lactated ringers IV infusion 1,000 mL 07-14 00:30: 00 07-14 03:23 :46 No 1000mL at 150 mL/hr, 1,000 mL, IV Infusion, CONTINUOUS , Starting on Leslee 07/13/22 at 1930, Until Leslee 07/13/22 at 2223, IRVIN [facility] morpHINE (4 mg/mL) injection 4 mg 07-14 00:00: 00 07-13 23:50 :00 No 4mg 4 mg, Slow IV Push, ONCE, 1 dose, On Sun07/13/22 at 1900, STAT [facility] ampicillin- sulbactam (UNASYN) 3 g in NaCl 0.9% (NS) 100 mL MINI-BAG 07-13 23:30: 00 07-14 00:24 :00 No 3g 3 g, IV Piggyback, ONCE, 1 dose, On Sun07/13/22 at 1830, Administer over 30 Minutes, 100 mL
Reas on for Anti-Infec tive: Documented Infection< br>Documen radha Infection Site: Skin / Soft Tissue
Duration of Therapy: 7 days [facility] ondansetron (ZOFRAN (PF)) injection 4 mg 07-13 23:30: 00 07-13 23:48 :00 No 4mg 4 mg, Slow IV Push, ONCE, 1 dose, On Leslee 07/13/22 at 1830, IRVIN [facility] losartan 50 mg tablet 06-07 00:00: 00 07-16 00:00 :00 No [id number] 50mg Take 1 tablet by mouth daily. [facility] sulfur hexafluorid e microsphr (LUMASON) injection 5 mL 06-06 20:45: 00 06-06 20:45 :00 No [id number] 5mL 5 mL, Intravenou s, ONCE, 1 dose, On Sun06/06/21 at 1545, Routine
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 [facility] hydrALAZINE 50 mg tablet 06-06 00:00: 00 07-16 00:00 :00 No [id number] 50mg Take 1 tablet by mouth 2 (two) times daily. [facility] aspirin chewable tablet 81 mg 06-05 14:00: 00 Yes 81mg 81 mg, Oral, DAILY, First dose on 06/05/21 at 0900, Until Discontinu ed, Routine [facility] hydrALAZINE (APRESOLINE ) tablet 50 mg 06-05 13:45: 00 Yes 50mg 50 mg, Oral, BID, First dose on 06/05/21 at 0845, Until Discontinu ed, Routine [facility] hydralAZINE (APRESOLINE ) injection 20 mg 06-05 13:09: 23 Yes 20mg 20 mg, Slow IV Push, Q4HPRN, Starting on 06/05/21 at 0809, Until Discontinu ed, STAT, DBP=>100; SBP=>180 [facility] niCARdipine (CARDENE I.V.) 40 mg in NaCL 200 mL (RTU) infusion 06-04 19:20: 57 06-05 13:11 :17 No 2.5mg/h 2.5-15 mg/hr (12.5-75 mL/hr), IV Infusion, TITRATE, SBP Goal < 180 mmHg, Starting on 06/04/21 at 1420 [facility] amLODIPine (NORVASC) tablet 10 mg 06-04 18:30: 00 Yes 10mg 10 mg, Oral, DAILY, First dose on 06/04/21 at 1330, Until Discontinu ed, Routine [facility] losartan (COZAAR) tablet 50 mg 06-04 18:30: 00 Yes 50mg 50 mg, Oral, DAILY, First dose on 06/04/21 at 1330, Until Discontinu ed, Routine [facility] hydralAZINE (APRESOLINE ) injection 10 mg 06-04 18:00: 00 06-04 16:54 :00 No 10mg 10 mg, Slow IV Push, ONCE, 1 dose, On 06/04/21 at 1300, IRVIN [facility] hydrALAZINE 100 mg tablet 07-08 00:00: 00 08-08 04:59 :00 No [id number] 100mg Take 1 tablet by mouth every 8 (eight) hours for 30 days. [facility] furosemide 40 mg tablet 07-08 00:00: 00 08-08 04:59 :00 No [id number] 40mg Take 1 tablet by mouth every morning for 30 days. [facility] atorvastati n 40 mg tablet 07-08 00:00: 00 08-08 04:59 :00 No [id number] 40mg Take 1 tablet by mouth at bedtime for 30 days. [facility] carvediloL 12.5 mg tablet 07-08 00:00: 00 08-08 04:59 :00 No [id number] 12.5mg Take 1 tablet by mouth 2 (two) times daily with meals for 30 days. [facility] meclizine 12.5 mg tablet 06-10 00:00: 00 11-28 00:00 :00 No [id number] 12.5mg Take 1 tablet by mouth 3 (three) times daily as needed for Dizziness. [facility] aspirin 81 mg chewable tablet 06-10 00:00: 00 11-28 00:00 :00 No [id number] 81mg Take 1 tablet by mouth daily. [facility] amLODIPine 10 mg tablet 06-10 00:00: 00 06-06 00:00 :00 No [id number] 10mg Take 1 tablet by mouth daily. [facility] furosemide 40 mg tablet 06-04 00:00: 00 07-05 04:59 :00 No [id number] 40mg Take 1 tablet by mouth daily for 30 days. [facility] carvediloL (COREG) tablet 12.5 mg 06-03 22:00: 00 Yes 12.5mg 12.5 mg, Oral, BID MEALS, First dose (after last modificati on) on Sun06/03/20 at 1700, Until Discontinu ed, Routine [facility] hydrALAZINE (APRESOLINE ) tablet 100 mg 06-03 12:00: 00 Yes 100mg 100 mg, Oral, Q8H, First dose (after last modificati on) on Sun06/03/20 at 0700, Until Discontinu ed, Routine [facility] melatonin (MELATIN) tablet 3 mg 06-03 02:30: 00 Yes 3mg 3 mg, Oral, QHS, First dose on Sun06/02/20 at 2130, Until Discontinu ed, Routine [facility] hydrALAZINE 50 mg tablet 06-03 00:00: 00 07-04 04:59 :00 No [id number] 100mg Take 2 tablets by mouth every 8 (eight) hours for 30 days. [facility] atorvastati n 40 mg tablet 06-03 00:00: 00 07-04 04:59 :00 No [id number] 40mg Take 1 tablet by mouth every evening for 30 days. [facility] carvediloL 12.5 mg tablet 06-03 00:00: 00 07-04 04:59 :00 No [id number] 12.5mg Take 1 tablet by mouth 2 (two) times daily with meals for 30 days. [facility] carvediloL (COREG) tablet 6.25 mg 06-02 22:00: 00 06-03 17:25 :28 No 6.25mg 6.25 mg, Oral, BID MEALS, First dose on Sun06/02/20 at 1700, Until Discontinu ed, Routine [facility] furosemide (LASIX) tablet 40 mg 06-02 15:45: 00 Yes 40mg 40 mg, Oral, DAILY, First dose on Sun06/02/20 at 1045, Until Discontinu ed, Routine [facility] amLODIPine (NORVASC) tablet 10 mg 06-02 14:00: 00 Yes 10mg 10 mg, Oral, DAILY, First dose (after last modificati on) on Sun06/02/20 at 0900, Until Discontinu ed, Routine [facility] aspirin chewable tablet 81 mg 06-02 14:00: 00 Yes 81mg 81 mg, Oral, DAILY, First dose on Sun06/02/20 at 0900, Until Discontinu ed, Routine [facility] hydrALAZINE (APRESOLINE ) tablet 50 mg 06-02 14:00: 00 06-03 11:42 :18 No 50mg 50 mg, Oral, Q8H, First dose (after last modificati on) on Sun06/02/20 at 0900, Until Discontinu ed, Routine [facility] magnesium sulfate in water 2 gram/50 mL (4 %) infusion 2 g 06-02 13:00: 00 06-02 15:57 :00 No 2g 2 g, IV Piggyback, ONCE, 1 dose, Sun06/02/20 at 0800, Routine [facility] Potassium Bicarb-Citr ic Acid (EFFER-K) effervescen t tablet 40 mEq 06-02 12:00: 00 Yes 40meq 40 mEq, Oral, DAILY, First dose on Sun06/02/20 at 0700, Until Discontinu ed, Routine [facility] atorvastati n (LIPITOR) tablet 40 mg 06-01 22:00: 00 Yes 40mg 40 mg, Oral, QPM, First dose on Sun06/01/20 at 1700, Until Discontinu ed, Routine [facility] isosorbide mononitrate (IMDUR) 24 hr tablet 30 mg 06-01 21:45: 00 06-03 17:27 :14 No 30mg 30 mg, Oral, DAILY, First dose on Sun06/01/20 at 1645, Until Discontinu ed, Routine [facility] amLODIPine (NORVASC) tablet 5 mg 06-01 21:45: 00 06-02 12:04 :42 No 5mg 5 mg, Oral, DAILY, First dose (after last modificati on) on Sun06/01/20 at 1645, Until Discontinu ed, Routine [facility] nitroglycer in (NITROSTAT) sublingual tablet 0.4 mg 06-01 21:28: 04 Yes .4mg 0.4 mg, Sublingual , Q5MIN PRN, Starting Sun06/01/20 at 1628, Until Discontinu ed, Routine, Chest pain [facility] ondansetron (ZOFRAN (PF)) injection 4 mg 06-01 21:27: 53 Yes 4mg 4 mg, Slow IV Push, Q6HPRN, Starting Sun06/01/20 at 1627, Until Discontinu ed, Routine, Nausea and Vomiting (N/V) [facility] heparin 25,000 Units/250 mL (Premixed Bag) in [...] Rang e, Dosing and Testing: &nbs p;[facility], AND [facility] CAMPUSES ONLY &nbs p; - [...] ADJUST INITIAL BOLUS OR INITIAL INFUSION RATE.
[facility] nitroglycer in 50 mg in D5W 250 [...] at maximum allowed dose, contact prescriber .
[facility] HEPARIN SODIUM (PORCINE) 1,000 UNIT/ML BOLUS ACS ORDER SET 06-01 18:45: 00 06-01 18:59 :00 No 4000U 4,000 Units, IV Push, ONCE, 1 dose, 06/01/20 at 1345, [facility] acute [facility] furosemide (LASIX) injection 40 mg 06-01 18:30: 00 06-01 17:55 :00 No 40mg 40 mg, IV Push, ONCE, 1 dose, 06/01/20 at 1330, [facility] acute [facility] nitroglycer in (NITROSTAT) sublingual tablet 0.4 mg 06-01 18:30: 00 06-01 17:55 :00 No .4mg 0.4 mg, Sublingual , ONCE, 1 dose, 06/01/20 at 1330, [facility] hydrALAZINE 100 mg tablet 10-01 00:00: 00 11-01 04:59 :00 No [id number] 100mg Take 1 tablet by mouth every 6 (six) hours for 30 days. [facility] cloNIDine (CATAPRES) 0.1 mg tablet 10-01 00:00: 00 11-01 04:59 :00 No [id number] .1mg Take 1 tablet by mouth 2 (two) times daily for 30 days. [facility] NIFEdipine ER (AFEDITAB CR) tablet 60 mg 09-06 01:00: 00 Yes 60mg 60 mg, Oral, BID, First dose on Sun09/06/19 at 2000, Until Discontinu ed, Routine [facility] amLODIPine 10 mg tablet 09-05 00:00: 00 Yes [id number] 10mg Take 1 tablet by mouth daily. [facility] lisinopril 5 mg tablet 09-05 00:00: 00 06-03 00:00 :00 No [id number] 5mg Take 1 tablet by mouth daily. [facility] hydrALAZINE 100 mg tablet 09-05 00:00: 10-01 00:00 :00 No [id number] 100mg Take 1 tablet by mouth every 8 (eight) hours. [facility] NaCl 0.9% (NS) IV infusion 1,000 mL 09-04 19:45: 00 Yes 1000mL at 50 mL/hr, IV Infusion, CONTINUOUS , Starting Sun09/05/19 at 1445, Until Discontinu ed, Routine [facility] cloNIDine (CATAPRES) tablet 0.2 mg 09-04 18:30: 00 09-04 17:48 :00 No .2mg 0.2 mg, Oral, ONCE, 1 dose, Sun09/05/19 at 1330, STAT [facility] aspirin chewable tablet 81 mg 09-04 14:00: 00 Yes 81mg 81 mg, Oral, DAILY, First dose on Sun09/05/19 at 0900, Until Discontinu ed, Routine [facility] amLODIPine (NORVASC) tablet 10 mg 09-04 14:00: 00 09-05 17:38 :51 No 10mg 10 mg, Oral, DAILY, First dose on Sun09/05/19 at 0900, Until Discontinu ed, Routine [facility] KCL (KLOR-CON M20) tablet 20 mEq 09-04 14:00: 00 09-04 13:19 :00 No 20meq 20 mEq, Oral, DAILY, 1 dose, First dose on Sun09/05/19 at 0900, Routine [facility] zinc sulfate (ORAZINC) capsule 220 mg 09-04 13:00: 00 Yes 220mg 220 mg, Oral, BID, First dose on Sun09/05/19 at 0800, Until Discontinu ed, Routine [facility] ascorbic acid (vitamin C) (VITAMIN C) tablet 500 mg 09-04 13:00: 00 Yes 500mg 500 mg, Oral, BID, First dose on Sun09/05/19 at 0800, Until Discontinu ed, Routine [facility] heparin 25,000 unit/250 mL (Premixed Bag) [...] c levels are reached.<b r> [facility] heparin 1000 unit/mL injection Soln 4,000 Units 09-04 03:45: 00 09-04 05:04 :00 No 4000U 4,000 Units, IV Push, ONCE, 1 dose, Leslee 09/04/19 at 2245, Routine [facility] hydrALAZINE (APRESOLINE ) tablet 100 mg 09-04 03:00: 00 Yes 100mg 100 mg, Oral, Q8H, First dose on Sun09/04/19 at 2200, Until Discontinu ed, Routine [facility] heparin (porcine) injection 5,000 Units 09-04 01:00: 00 09-04 03:34 :57 No 5000U 5,000 Units, Subcutaneo us, Q12H, First dose on Sun09/04/19 at 2000, Until Discontinu ed, Routine [facility] NaCl 0.9% (NS) IV infusion 1,000 mL 09-04 00:15: 00 09-04 19:38 :04 No 1000mL at 100 mL/hr, IV Infusion, CONTINUOUS , Starting Sun09/04/19 at 1915, Until Sun09/05/19 at 1438, Routine [facility] cloNIDine (CATAPRES) tablet 0.1 mg 09-03 23:15: 00 09-03 22:14 :00 No .1mg 0.1 mg, Oral, ONCE, 1 dose, Sun09/04/19 at 1815, STAT [facility] nitroglycer in (NITROSTAT) sublingual tablet 0.4 mg 09-03 22:51: 25 Yes .4mg 0.4 mg, Sublingual , Q5MIN PRN, Starting Leslee 09/04/19 at 1751, Until Discontinu ed, Routine, Chest pain [facility] ondansetron (ZOFRAN (PF)) injection 4 mg 09-03 22:51: 02 Yes 4mg 4 mg, Slow IV Push, Q6HPRN, Starting Leslee 09/04/19 at 1751, Until Discontinu ed, Routine, Nausea and Vomiting (N/V) [facility] HYDROcodone -acetaminop hen (NORCO) 10-325 mg tablet 1 tablet 09-03 22:50: 57 Yes 1{tbl} 1 tablet, Oral, Q6HPRN, Starting Leslee 09/04/19 at 1750, Until Discontinu ed, Routine, Pain (scale 7-10) [facility] traMADol (ULTRAM) tablet 50 mg 09-03 22:50: 49 09-05 22:49 :49 No 50mg 50 mg, Oral, Q8HPRN, Starting Leslee 09/04/19 at 1750, Until 09/06/19 at 1749, Routine, Pain (scale 4-6) [facility] acetaminoph en (TYLENOL) tablet 650 mg 09-03 22:50: 40 Yes 650mg 650 mg, Oral, Q6HPRN, Starting Leslee 09/04/19 at 1750, Until Discontinu ed, Routine, Pain (scale 1-3) [facility] iohexol (OMNIPAQUE 350 BULK-50 mL) injection 50 mL 09-03 21:30: 00 09-03 21:30 :00 No 50mL 50 mL, Intravenou s, ONCE, 1 dose, [facility] 09/04/19 at 1630, Routine [facility] aspirin 81 mg chewable tablet 2017-02 00:00: 00 Yes 81mg Take 1 tablet by mouth daily. [facility] amLODIPine 10 mg tablet 2017-02 00:00: 00 09-05 00:00 :00 No 10mg Take 1 tablet by mouth daily. [facility] meclizine 12.5 mg tablet 2017-02 00:00: 00 Yes 12.5mg Take 1 tablet by mouth 3 (three) times daily as needed for Dizziness. [facility] lisinopril 5 mg tablet 2017-02 00:00: 00 09-05 00:00 :00 No 5mg Take 1 tablet by mouth daily. [facility] hydralAZINE 100 mg tablet 2017-02 00:00: 00 09-05 00:00 :00 No 100mg Take 1 tablet by mouth every 8 (eight) hours. [facility] Immunizations Ordered Immunization Name Filled Immunization Name Date Status Comments Source TD Pres-Free 2022-07-14 00:00:00 Completed [facility] TD Pres-Free 2022-07-14 00:00:00 Completed [facility] TD Pres-Free 2022-07-14 00:00:00 Completed [facility] TD Pres-Free 2022-07-14 00:00:00 Completed [facility] TD Pres-Free 2022-07-14 00:00:00 Completed [facility] TD Pres-Free 2022-07-14 00:00:00 Completed [facility] TD Pres-Free 2022-07-14 00:00:00 Completed [facility] TD Pres-Free 2022-07-14 00:00:00 Completed [facility] SARS-COV-2 COVID-19 PFIZER VACCINE 2020-07-05 00:00:00 Completed [facility] SARS-COV-2 COVID-19 PFIZER VACCINE 2020-07-05 00:00:00 Completed [facility] SARS-COV-2 COVID-19 PFIZER VACCINE 2020-07-05 00:00:00 Completed [facility] SARS-COV-2 COVID-19 PFIZER VACCINE 2020-07-05 00:00:00 Completed [facility] SARS-COV-2 COVID-19 PFIZER VACCINE 2020-07-05 00:00:00 Completed [facility] SARS-COV-2 COVID-19 PFIZER VACCINE 2020-07-05 00:00:00 Completed [facility] SARS-COV-2 COVID-19 PFIZER VACCINE 2020-07-05 00:00:00 Completed [facility] SARS-COV-2 COVID-19 PFIZER VACCINE 2020-07-05 00:00:00 Completed [facility] SARS-COV-2 COVID-19 PFIZER VACCINE 2020-07-05 00:00:00 Completed [facility] SARS-COV-2 COVID-19 PFIZER VACCINE 2020-07-05 00:00:00 Completed [facility] SARS-COV-2 COVID-19 PFIZER VACCINE 2020-07-05 00:00:00 Completed [facility] SARS-COV-2 COVID-19 PFIZER VACCINE 2020-07-05 00:00:00 Completed [facility] SARS-COV-2 COVID-19 PFIZER VACCINE 2020-06-05 00:00:00 Completed [facility] SARS-COV-2 COVID-19 PFIZER VACCINE 2020-06-05 00:00:00 Completed [facility] SARS-COV-2 COVID-19 PFIZER VACCINE 2020-06-05 00:00:00 Completed [facility] SARS-COV-2 COVID-19 PFIZER VACCINE 2020-06-05 00:00:00 Completed [facility] SARS-COV-2 COVID-19 PFIZER VACCINE 2020-06-05 00:00:00 Completed [facility] SARS-COV-2 COVID-19 PFIZER VACCINE 2020-06-05 00:00:00 Completed [facility] SARS-COV-2 COVID-19 PFIZER VACCINE 2020-06-05 00:00:00 Completed [facility] SARS-COV-2 COVID-19 PFIZER VACCINE 2020-06-05 00:00:00 Completed [facility] SARS-COV-2 COVID-19 PFIZER VACCINE 2020-06-05 00:00:00 Completed [facility] SARS-COV-2 COVID-19 PFIZER VACCINE 2020-06-05 00:00:00 Completed [facility] SARS-COV-2 COVID-19 PFIZER VACCINE 2020-06-05 00:00:00 Completed [facility] SARS-COV-2 COVID-19 PFIZER VACCINE 2020-06-05 00:00:00 Completed [facility] SARS-COV-2 COVID-19 PFIZER VACCINE 2020-06-05 00:00:00 Completed [facility] SARS-COV-2 COVID-19 PFIZER VACCINE Unknown Completed [facility] TD Pres-Free Unknown Completed [facility] SARS-COV-2 COVID-19 PFIZER VACCINE Unknown Completed [facility] TD Pres-Free Unknown Completed [facility] SARS-COV-2 COVID-19 PFIZER VACCINE Unknown Completed [facility] TD Pres-Free Unknown Completed [facility] SARS-COV-2 COVID-19 PFIZER VACCINE Unknown Completed [facility] TD Pres-Free Unknown Completed [facility] SARS-COV-2 COVID-19 PFIZER VACCINE Unknown Completed [facility] TD Pres-Free Unknown Completed [facility] SARS-COV-2 COVID-19 PFIZER VACCINE Unknown Completed [facility] TD Pres-Free Unknown Completed [facility] SARS-COV-2 COVID-19 PFIZER VACCINE Unknown Completed [facility] TD Pres-Free Unknown Completed [facility] SARS-COV-2 COVID-19 PFIZER VACCINE Unknown Completed [facility] TD Pres-Free Unknown Completed [facility] SARS-COV-2 COVID-19 PFIZER VACCINE Unknown Completed [facility] TD Pres-Free Unknown Completed [facility] SARS-COV-2 COVID-19 PFIZER VACCINE Unknown Completed [facility] TD Pres-Free Unknown Completed [facility] SARS-COV-2 COVID-19 PFIZER VACCINE Unknown Completed [facility] TD Pres-Free Unknown Completed [facility] SARS-COV-2 COVID-19 PFIZER VACCINE Unknown Completed [facility] TD Pres-Free Unknown Completed [facility] Vital Signs Vital Name Observation Time Observation Value Comments S ource Systolic blood pressure 2023-12-13 19:40:00 185 mm[Hg] [facility] Diastolic blood pressure 2023-12-13 19:40:00 100 mm[Hg] [facility] Heart rate 2023-12-13 19:40:00 62 /min [facility] Body temperature 2023-12-13 19:39:00 37.11 Nae [facility] Respiratory rate 2023-12-13 19:39:00 20 /min [facility] Body weight 2023-12-13 19:39:00 109.77 kg [facility] BMI 2023-12-13 19:39:00 33.75 kg/m2 [facility] Oxygen saturation in Arterial blood by Pulse oximetry 2023-12-13 19:39:00 95 /min [facility] Respiratory rate 2023-11-29 14:54:00 15 /min [facility] Heart rate 2023-11-29 14:53:00 54 /min [facility] Oxygen saturation in Arterial blood by Pulse oximetry 2023-11-29 14:53:00 97 /min [facility] Systolic blood pressure 2023-11-29 14:51:00 155 mm[Hg] [facility] Diastolic blood pressure 2023-11-29 14:51:00 93 mm[Hg] [facility] Body temperature 2023-11-29 14:51:00 36.67 Nae [facility] Body height 2023-11-29 11:53:00 180.3 cm [facility] Body weight 2023-11-29 11:53:00 107.956 kg [facility] BMI 2023-11-29 11:53:00 33.19 kg/m2 [facility] Systolic blood pressure 2023-11-29 11:53:00 165 mm[Hg] [facility] Diastolic blood pressure 2023-11-29 11:53:00 89 mm[Hg] [facility] Body height 2023-11-29 11:53:00 180.3 cm [facility] Body weight 2023-11-29 11:53:00 107.956 kg [facility] BMI 2023-11-29 11:53:00 33.19 kg/m2 [facility] Heart rate 2023-11-29 11:27:00 50 /min [facility] Body temperature 2023-11-29 11:27:00 36.72 Nae [facility] Respiratory rate 2023-11-29 11:27:00 21 /min [facility] Oxygen saturation in Arterial blood by Pulse oximetry 2023-11-29 11:27:00 98 /min [facility] Systolic blood pressure 2023-11-15 21:33:00 159 mm[Hg] [facility] Diastolic blood pressure 2023-11-15 21:33:00 88 mm[Hg] [facility] Heart rate 2023-11-15 21:33:00 86 /min [facility] Oxygen saturation in Arterial blood by Pulse oximetry 2023-11-15 21:33:00 97 /min [facility] Body temperature 2023-11-15 21:32:00 37.06 Nae [facility] Respiratory rate 2023-11-15 21:32:00 20 /min [facility] Body height 2023-11-15 21:32:00 180.3 cm [facility] Body weight 2023-11-15 21:32:00 107.956 kg [facility] BMI 2023-11-15 21:32:00 33.19 kg/m2 [facility] Systolic blood pressure 2023-11-01 18:57:00 147 mm[Hg] [facility] Diastolic blood pressure 2023-11-01 18:57:00 93 mm[Hg] [facility] Heart rate 2023-11-01 18:57:00 67 /min [facility] Body temperature 2023-11-01 18:54:00 37.33 Nae [facility] Respiratory rate 2023-11-01 18:54:00 20 /min [facility] Body height 2023-11-01 18:54:00 180.3 cm [facility] Body weight 2023-11-01 18:54:00 112.038 kg [facility] BMI 2023-11-01 18:54:00 34.45 kg/m2 [facility] Oxygen saturation in Arterial blood by Pulse oximetry 2023-11-01 18:54:00 98 /min [facility] Systolic blood pressure 2023-10-11 18:44:00 158 mm[Hg] [facility] Diastolic blood pressure 2023-10-11 18:44:00 89 mm[Hg] [facility] Heart rate 2023-10-11 18:44:00 55 /min [facility] Oxygen saturation in Arterial blood by Pulse oximetry 2023-10-11 18:44:00 99 /min [facility] Body temperature 2023-10-11 18:42:00 36.61 Nae [facility] Respiratory rate 2023-10-11 18:42:00 20 /min [facility] Body weight 2023-10-11 18:42:00 107.502 kg [facility] BMI 2023-10-11 18:42:00 33.05 kg/m2 [facility] Systolic blood pressure 2023-09-13 21:36:00 146 mm[Hg] [facility] Diastolic blood pressure 2023-09-13 21:36:00 85 mm[Hg] [facility] Heart rate 2023-09-13 21:31:00 61 /min [facility] Body temperature 2023-09-13 21:31:00 36.72 Nae [facility] Respiratory rate 2023-09-13 21:31:00 20 /min [facility] Body height 2023-09-13 21:31:00 180.3 cm [facility] Body weight 2023-09-13 21:31:00 107.502 kg [facility] BMI 2023-09-13 21:31:00 33.05 kg/m2 [facility] Oxygen saturation in Arterial blood by Pulse oximetry 2023-09-13 21:31:00 96 /min [facility] Systolic blood pressure 2023-08-28 18:15:00 148 mm[Hg] [facility] Diastolic blood pressure 2023-08-28 18:15:00 82 mm[Hg] [facility] Heart rate 2023-08-28 18:15:00 65 /min [facility] Oxygen saturation in Arterial blood by Pulse oximetry 2023-08-28 18:15:00 97 /min [facility] Respiratory rate 2023-08-28 17:26:00 17 /min [facility] Body temperature 2023-08-28 17:16:00 36.22 Nae [facility] Body height 2023-08-28 12:35:00 180.3 cm [facility] Body weight 2023-08-28 12:35:00 110 kg [facility] BMI 2023-08-28 12:35:00 33.82 kg/m2 [facility] Systolic blood pressure 2023-08-28 12:35:00 166 mm[Hg] [facility] Diastolic blood pressure 2023-08-28 12:35:00 99 mm[Hg] [facility] Heart rate 2023-08-28 12:35:00 59 /min [facility] Body temperature 2023-08-28 12:35:00 36.39 Nae [facility] Respiratory rate 2023-08-28 12:35:00 19 /min [facility] Body height 2023-08-28 12:35:00 180.3 cm [facility] Body weight 2023-08-28 12:35:00 110 kg [facility] BMI 2023-08-28 12:35:00 33.82 kg/m2 [facility] Oxygen saturation in Arterial blood by Pulse oximetry 2023-08-28 12:35:00 99 /min [facility] Systolic blood pressure 2023-03-11 01:00:00 152 mm[Hg] [facility] Diastolic blood pressure 2023-03-11 01:00:00 77 mm[Hg] [facility] Heart rate 2023-03-11 01:00:00 57 /min [facility] Respiratory rate 2023-03-11 01:00:00 18 /min [facility] Oxygen saturation in Arterial blood by Pulse oximetry 2023-03-11 01:00:00 98 /min [facility] Body temperature 2023-03-10 21:50:00 37.11 Nae [facility] Body height 2023-03-10 21:50:00 180.3 cm [facility] Body weight 2023-03-10 21:50:00 102.059 kg [facility] BMI 2023-03-10 21:50:00 31.38 kg/m2 [facility] Systolic blood pressure 2022-10-27 22:27:00 162 mm[Hg] [facility] Diastolic blood pressure 2022-10-27 22:27:00 84 mm[Hg] [facility] Heart rate 2022-10-27 22:27:00 81 /min [facility] Oxygen saturation in Arterial blood by Pulse oximetry 2022-10-27 22:27:00 96 /min [facility] Body temperature 2022-10-27 20:40:00 37.39 Nae [facility] Respiratory rate 2022-10-27 20:40:00 18 /min [facility] Body weight 2022-10-27 08:24:00 104.463 kg [facility] BMI 2022-10-27 08:24:00 32.12 kg/m2 [facility] Body height 2022-10-24 18:20:00 180.3 cm [facility] Systolic blood pressure 2022-07-16 16:01:00 168 mm[Hg] [facility] Diastolic blood pressure 2022-07-16 16:01:00 98 mm[Hg] [facility] Heart rate 2022-07-16 16:01:00 56 /min [facility] Body temperature 2022-07-16 16:01:00 36.06 Nae [facility] Respiratory rate 2022-07-16 16:01:00 18 /min [facility] Oxygen saturation in Arterial blood by Pulse oximetry 2022-07-16 16:01:00 97 /min [facility] Body weight 2022-07-16 08:16:00 101.47 kg [facility] BMI 2022-07-16 08:16:00 31.20 kg/m2 [facility] Body height 2022-07-13 22:57:00 180.3 cm [facility] Systolic blood pressure 2022-07-15 19:44:00 156 mm[Hg] [facility] Diastolic blood pressure 2022-07-15 19:44:00 74 mm[Hg] [facility] Heart rate 2022-07-15 19:44:00 56 /min [facility] Respiratory rate 2022-07-15 19:44:00 18 /min [facility] Oxygen saturation in Arterial blood by Pulse oximetry 2022-07-15 19:44:00 97 /min [facility] Body temperature 2022-07-15 16:34:00 36 Nae [facility] Body weight 2022-07-15 05:33:00 101.969 kg [facility] BMI 2022-07-15 05:33:00 31.20 kg/m2 [facility] Body height 2022-07-13 22:57:00 180.3 cm [facility] Systolic blood pressure 2021-06-06 20:29:00 184 mm[Hg] [facility] Diastolic blood pressure 2021-06-06 20:29:00 102 mm[Hg] [facility] Heart rate 2021-06-06 20:29:00 78 /min [facility] Body height 2021-06-06 20:29:00 180.3 cm [facility] Body weight 2021-06-06 20:29:00 112.492 kg [facility] BMI 2021-06-06 20:29:00 34.59 kg/m2 [facility] Body temperature 2021-06-06 17:00:00 36.61 Nae [facility] Oxygen saturation in Arterial blood by Pulse oximetry 2021-06-06 17:00:00 97 /min [facility] Respiratory rate 2021-06-06 13:00:00 24 /min [facility] Heart rate 2020-07-08 17:57:00 64 /min [facility] Oxygen saturation in Arterial blood by Pulse oximetry 2020-07-08 17:57:00 97 /min [facility] Systolic blood pressure 2020-07-08 17:56:00 229 mm[Hg] [facility] Diastolic blood pressure 2020-07-08 17:56:00 121 mm[Hg] [facility] Body temperature 2020-07-08 17:56:00 36.61 Nae [facility] Respiratory rate 2020-07-08 17:56:00 18 /min [facility] Body height 2020-07-08 17:56:00 180.3 cm [facility] Body weight 2020-07-08 17:56:00 108.863 kg [facility] BMI 2020-07-08 17:56:00 33.47 kg/m2 [facility] Systolic blood pressure 2020-06-03 20:10:00 132 mm[Hg] [facility] Diastolic blood pressure 2020-06-03 20:10:00 83 mm[Hg] [facility] Heart rate 2020-06-03 20:10:00 76 /min [facility] Body temperature 2020-06-03 20:10:00 36.72 Nae [facility] Respiratory rate 2020-06-03 20:10:00 20 /min [facility] Oxygen saturation in Arterial blood by Pulse oximetry 2020-06-03 20:10:00 97 /min [facility] Body weight 2020-06-03 00:43:00 112.129 kg [facility] BMI 2020-06-03 00:43:00 34.48 kg/m2 [facility] Body height 2020-06-01 22:23:00 180.3 cm [facility] Systolic blood pressure 2019-10-02 17:01:00 190 mm[Hg] [facility] Diastolic blood pressure 2019-10-02 17:01:00 97 mm[Hg] [facility] Heart rate 2019-10-02 17:01:00 65 /min [facility] Respiratory rate 2019-10-02 16:58:00 19 /min [facility] Body height 2019-10-02 16:58:00 180.3 cm [facility] Body weight 2019-10-02 16:58:00 114.306 kg [facility] BMI 2019-10-02 16:58:00 35.15 kg/m2 [facility] Oxygen saturation in Arterial blood by Pulse oximetry 2019-10-02 16:58:00 98 /min [facility] Systolic blood pressure 2019-10-02 17:01:00 190 mm[Hg] [facility] Diastolic blood pressure 2019-10-02 17:01:00 97 mm[Hg] [facility] Heart rate 2019-10-02 17:01:00 65 /min [facility] Respiratory rate 2019-10-02 16:58:00 19 /min [facility] Body height 2019-10-02 16:58:00 180.3 cm [facility] Body weight 2019-10-02 16:58:00 114.306 kg [facility] BMI 2019-10-02 16:58:00 35.15 kg/m2 [facility] Oxygen saturation in Arterial blood by Pulse oximetry 2019-10-02 16:58:00 98 /min [facility] Systolic blood pressure 2019-09-06 17:35:00 171 mm[Hg] [facility] Diastolic blood pressure 2019-09-06 17:35:00 86 mm[Hg] [facility] Heart rate 2019-09-06 17:35:00 64 /min [facility] Body temperature 2019-09-06 17:35:00 36.61 Nae [facility] Respiratory rate 2019-09-06 17:35:00 17 /min [facility] Oxygen saturation in Arterial blood by Pulse oximetry 2019-09-06 17:35:00 96 /min [facility] Body weight 2019-09-06 08:00:00 116.484 kg [facility] BMI 2019-09-06 08:00:00 34.83 kg/m2 [facility] Body height 2019-09-04 19:08:00 182.9 cm [facility] Procedures Procedure Date / Time Performed Performing Clinician Source [place] TIME OR (NON-REPORTABLE) 2023-11-29 14:10:00 Real Robert [facility] [address] - [place] INTRO CATH DIALYSIS CIRCUIT W/TRLUML BALO ANGIOP 2023-11-29 12:37:00 Real Robert [facility] POTASSIUM SERUM 2023-11-29 11:38:00 [facility] POTASSIUM SERUM 2023-11-29 11:38:00 [facility] [id number] [place] CRTJ ARVEN FSTL XCP DIR LAURE ANAST AUTOG GRF 2023-08-28 13:41:00 Yesica [facility] [address] [place] CRTJ ARVEN FSTL XCP DIR LAURE ANAST NONAUTOG GRF 2023-08-28 13:41:00 Yesica [facility] [id number] - [place] ARTERIOVENOUS ANASTOMOSIS OPEN DIRECT 2023-08-28 13:41:00 Yesica [facility] POTASSIUM SERUM 2023-08-28 12:55:00 Emeka [facility] HB ABO GROUPING 2023-08-28 12:55:00 Emeka [facility] POTASSIUM SERUM 2023-08-28 12:55:00 Emeka [facility] HB ABO GROUPING 2023-08-28 12:55:00 Emeka [facility] XR CHEST 1 VW 2023-03-10 23:27:00 Rasheeda Riojas [facility] ASSIGNMENT OF BENEFITS 2023-03-10 23:12:34 Docto r Unassigned, [place] [facility] PHOSPHORUS 2023-03-10 22:56:00 [facility] MAGNESIUM 2023-03-10 22:56:00 [facility]eda [facility] COMP. METABOLIC PANEL ([id number]) 2023-03-10 22:56:00 Rasheeda Riojas [facility] CBC WITH DIFF 2023-03-10 22:56:00 Rasheeda Riojas [facility] CONSENT/REFUSAL FOR DIAGNOSIS AND TREATMENT 2023-03-10 21:42:10 Doctor Unassigned, [place] [facility] AUTHORIZATION FOR RELEASE OF PHI 2023-02-28 06:01:00 Doctor Unassigned, [place] [facility] CORTISOL AM 2022-10-27 10:37:00 Javed Chu [facility] MAGNESIUM 2022-10-27 09:01:00 Catie Chris [facility] BASIC METABOLIC PANEL (NA, K, CL, CO2, GLUCOSE, BUN, CREATININE, CA) 2022-10-27 09:01:00 Catie Chris [facility] PROTEIN CREAT RATIO URINE RANDOM 2022-10-26 21:10:00 Javed Chu [facility] CREATINE KINASE 2022-10-26 20:50:00 Javed hCu [facility] URIC ACID 2022-10-26 20:50:00 Javed Chu [facility] INTACT PTH CALCIUM GROUP 2022-10-26 20:50:00 Javed Chu [facility] US RETROPERITONEAL COMPLETE 2022-10-26 20:30:00 Javed Chu [facility] TROPONIN I 2022-10-25 15:40:00 Genevieve [facility] TRANSTHORACIC ECHO (TTE) COMPLETE W/ CONTRAST 2022-10-25 13:31:00 [facility] 2022-10-25 08:20:00 Genevieve [facility] TROPONIN I 2022-10-25 08:20:[facility] (NA, K, CL, CO2, GLUCOSE, BUN, CREATININE, CA) 2022-10-25 08:20:00 [facility] 2022-10-25 02:47:00 [facility] 2022-10-24 21:23:00 Genevieve [facility] TROPONIN I 2022-10-24 21:23:00 Genevieve [facility] LIPID PANEL ([id number])(TOTAL CHOLESTEROL, TRIGLYCERIDES, HDL) 2022-10-24 21:23:00 Yohannes Lopez [facility] N-TERMINAL PRO-BNP 2022-10-24 21:23:00 Yohannes Lopez [facility] HB ECG ROUTINE & RHYTHM STRIP 2022-10-24 15:42:04 Anitra Yen [facility] TROPONIN I 2022-10-24 15:22:00 Anitra Yen [facility] THYROID STIMULATING HORMONE 2022-10-24 15:22:00 [facility] COMP. METABOLIC PANEL ([id number]) 2022-10-24 15:22:00 Farshad [facility] Peoriadenilson [facility] CBC WITH DIFF 2022-10-24 15:22:00 OrquideaAnitra connor [facility] GLYCOSYLATED HEMOGLOBIN (A1C) 2022-10-24 15:22:00 Genevieve [facility] CONSENT/REFUSAL FOR DIAGNOSIS AND TREATMENT 2022-10-24 14:22:41 Doctor Unassigned, [place] [facility] CONSENT/REFUSAL FOR DIAGNOSIS AND TREATMENT 2022-07-27 18:28:45 Doctor Unassigned, [place] [facility] HB ECG ROUTINE & RHYTHM STRIP 2022-07-15 19:10:56 Nolan Jhaveri [facility] HB ECG ROUTINE & RHYTHM STRIP 2022-07-15 19:10:56 Nolan Jhaveri [facility] ASPIRATE OR ABSCESS CULTURE(AEROBIC/ANAEROBIC ) 2022-07-15 18:40:00 Chela Treviño [facility] ASPIRATE OR ABSCESS CULTURE(AEROBIC/ANAEROBIC ) 2022-07-15 18:40:00 Chela Treviño [facility] DEBRIDEMENT LOWER EXTREMITY 2022-07-15 18:03:00 Chela Treviño [facility] MAGNESIUM 2022-07-15 10:08:00 Katina Chris [facility] BASIC METABOLIC PANEL (NA, K, CL, CO2, GLUCOSE, BUN, CREATININE, CA) 2022-07-15 10:08:00 Katina Chris [facility] LIPID PANEL ([id number])(TOTAL CHOLESTEROL, TRIGLYCERIDES, HDL) 2022-07-15 10:08:00 Katina Chris [facility] CBC WITHOUT DIFF 2022-07-15 10:08:00 Katina Chris [facility] MAGNESIUM 2022-07-15 10:08:00 Katina Chris U [facility] BASIC METABOLIC PANEL (NA, K, CL, CO2, GLUCOSE, BUN, CREATININE, CA) 2022-07-15 10:08:00 Katina Chris [facility] LIPID PANEL ([id number])(TOTAL CHOLESTEROL, TRIGLYCERIDES, HDL) 2022-07-15 10:08:00 Katina Chris [facility] CBC WITHOUT DIFF 2022-07-15 10:08:00 Katina Chris [facility] URINE DRUG (IMMUNOASSAY) - COMPREHENSIVE DRUG SCREEN 2022-07-14 09:54:[address] Edsalvador [facility] URINE DRUG (IMMUNOASSAY) - COMPREHENSIVE DRUG SCREEN 2022-07-14 09:54:00 Bridgett [facility] BASIC METABOLIC PANEL (NA, K, CL, CO2, GLUCOSE, BUN, CREATININE, CA) 2022-07-14 09:33:00 Bridgett [facility] CBC WITH DIFF 2022-07-14 09:33:00 Bridgett [facility] BASIC METABOLIC PANEL (NA, K, CL, CO2, GLUCOSE, BUN, CREATININE, CA) 2022-07-14 09:33:00 Bridgett [facility] CBC WITH DIFF 2022-07-14 09:33:00 Bridgett [facility] XR TIBIA FIBULA 2 VW LEFT 2022-07-14 00:13:04 Izabela Combs [facility] XR TIBIA FIBULA 2 VW LEFT 2022-07-14 00:13:04 Izabela Combs [facility] BLOOD CULTURE SCREEN 2022-07-13 23:32:00 Josiah Combs [facility] COMP. METABOLIC PANEL ([id number]) 2022-07-13 23:32:00 Josiah Combs [facility] CBC WITH DIFF 2022-07-13 23:32:00 Josiah Combs [facility] LACTIC ACID WHOLE BLOOD 2022-07-13 23:32:00 Frances Combs [facility] BLOOD CULTURE SCREEN 2022-07-13 23:32:00 Josiah Combs [facility] COMP. METABOLIC PANEL ([id number]) 2022-07-13 23:32:00 Josiah Combs [facility] CBC WITH DIFF 2022-07-13 23:32:00 Josiah Combs [facility] LACTIC ACID WHOLE BLOOD 2022-07-13 23:32:00 Frances Combs [facility] NOTICE OF PRIVACY PRACTICES 2022-07-13 22:34:00 Doctor Unassigned, [place] [facility] NOTICE OF PRIVACY PRACTICES 2022-07-13 22:34:00 Doctor Unassigned, [place] [facility] CONSENT/REFUSAL FOR DIAGNOSIS AND TREATMENT 2022-07-13 22:33:20 Doctor Unassigned, [place] [facility] CONSENT/REFUSAL FOR DIAGNOSIS AND TREATMENT 2022-07-13 22:33:20 Doctor Unassigned, [place] [facility] TRANSTHORACIC ECHO (TTE) COMPLETE W/ CONTRAST 2021-06-06 20:29:17 Emil Ramachandran [facility] RENAL ARTERY DUPLEX - BY VASCULAR LAB 2021-06-06 19:52:00 mEil Ramachandran [facility] BASIC METABOLIC PANEL (NA, K, CL, CO2, GLUCOSE, BUN, CREATININE, CA) 2021-06-06 10:50:00 Emil Ramachandran [facility] TROPONIN I 2021-06-05 13:29:00 Emil Ramachandran [facility] PHOSPHORUS 2021-06-05 08:37:00 Emil Ramachandran [facility] MAGNESIUM 2021-06-05 08:37:00 Emil Ramachandran [facility] TROPONIN I 2021-06-05 08:37:00 [facility] BASIC METABOLIC PANEL (NA, K, CL, CO2, GLUCOSE, BUN, CREATININE, CA) 2021-06-05 08:37:00 [facility]FF 2021-06-05 08:37:00 Emil Ramachandran [facility] CRITICAL CARE 2021-06-04 23:17:21 Rasheeda Riojas [facility] TROPONIN I 2021-06-04 20:49:00 Emil Ramachandran [facility] URINE DRUG (IMMUNOASSAY) - COMPREHENSIVE DRUG SCREEN W/O REFLEX 2021-06-04 17:35[facility] 2021-06-04 16:53:00 [facility] COMP. METABOLIC PANEL ([id number]) 2021-06-04 16:53:00 [facility] WITH DIFF 2021-06-04 16:53:00 Shnie [facility] PROTHROMBIN TIME / INR 2021-06-04 16:53:00 Dannie Riojas [facility] ACTIVATED PARTIAL THRMPLAS BRITTNEY 2021-06-04 16:53:00 Shine [facility] N-TERMINAL PRO-BNP 2021-06-04 16:53:00 [facility]OUTINE & RHYTHM STRIP 2021-06-04 16:51:06 Shine [facility] CONSENT/REFUSAL FOR DIAGNOSIS AND TREATMENT 2021-06-04 16:42:16 Doctor Unassigned, [place] [facility] NOTICE OF PRIVACY PRACTICES 2020-07-08 17:59:10 Doctor Unassigned, [place] [facility] CONSENT/REFUSAL FOR DIAGNOSIS AND TREATMENT 2020-07-08 17:54:43 Doctor Unassigned, [place] [facility] MAGNESIUM 2020-06-03 11:39:00 Cristopher Larry [facility] BASIC METABOLIC PANEL (NA, K, CL, CO2, GLUCOSE, BUN, CREATININE, CA) 2020-06-03 11:39:00 Cristopher Larry [facility] CBC WITH DIFF 2020-06-03 11:38:00 Cristopher Larry [facility] TRANSTHORACIC ECHO (TTE) COMPLETE 2020-06-02 20:23:[facility] 2020-06-02 11:36:[address] [facility] ACTIV[facility] PARTIAL THRMPLAS BRITTNEY 2020-06-02 11:35:00 Adrien, [facility] ACTIVATED PARTIAL THRMPLAS BRITTNEY 2020-06-02 05:36:00 Adrien [facility] MAGNESIUM 2020-06-02 05:35:00 Ray [facility] TROPONIN I 2020-06-02 05:35:00 [facility] BASIC METABOLIC PANEL (NA, K, CL, CO2, GLUCOSE, BUN, CREATININE, CA) 2020-06-02 05:35:00 [facility] PHOS[facility] 2020-06-01 23:16:00 Ray [facility] TROPONIN I 2020-06-01 23:16:00 [facility] THYROID STIMULATING HORMONE 2020-06-01 23:16:00 [facility] LIPID PANEL ([id number])(TOTAL CHOLESTEROL, TRIGLYCERIDES, HDL) 2020-06-01 22:05:00 [facility] GLYCOSYLATED HEMOGLOBIN (A1C) 2020-06-01 22:05:00 [facility] CRITICAL CARE 2020-06-01 21:08:59 Shine [facility] URINE DRUG (IMMUNOASSAY) - 4 ER PANEL 2020-06-01 19:25:00 Shine [facility] XR CHEST 1 VW 2020-06-01 16:54:29 Shine [facility] HB ECG ROUTINE & RHYTHM STRIP 2020-06-01 16:39:04 Shine [facility] TROPONIN I 2020-06-01 16:36:00 Rasheeda Riojas [facility] HEPATIC FUNCTION PANEL ([id number]) (ALB,T.PRO,BILI T,BU/BC,ALT,AST,ALK PHOS) 2020-06-01 16:36:00 Rasheeda Riojas [facility] BASIC METABOLIC PANEL (NA, K, CL, CO2, GLUCOSE, BUN, CREATININE, CA) 2020-06-01 16:36:00 Rasheeda Riojas [facility] CBC WITH DIFF 2020-06-01 16:36:00 Rasheeda Riojas [facility] PROTHROMBIN TIME / INR 2020-06-01 16:36:00 Dannie Riojas [facility] ACTIVATED PARTIAL THRMPLAS BRITTNEY 2020-06-01 16:36:00 Rasheeda Riojas [facility] N-TERMINAL PRO-BNP 2020-06-01 16:36:00 Rasheeda Riojas [facility] COVID-19 (ID NOW RAPID TESTING) 2020-06-01 16:36:00 Rasheeda Riojas [facility] LAB ONLY COVID INTERPRETATION 2020-06-01 16:36:00 Rasheeda Riojas [facility] NOTICE OF PRIVACY PRACTICES 2020-06-01 16:09:18 Doctor Unassigned, [place] [facility] CONSENT/REFUSAL FOR DIAGNOSIS AND TREATMENT 2020-06-01 16:06:36 Doctor Unassigned, [place] [facility] AGREEMENTS AUTHORIZATIONS AND IRREVOCABLE ASSIGNMENTS (FORM 2001) 2020-06-01 05:01:00 Doctor Unassigned, [place] [facility] PHYSICIAN ORDERS 2019-10-02 05:01:00 Doctor Unas signed, [place] [facility] BASIC METABOLIC PANEL (NA, K, CL, CO2, GLUCOSE, BUN, CREATININE, CA) 2019-09-06 09:13:00 Ashlee Levin [facility] CBC WITH DIFF 2019-09-06 09:13:00 Ashlee Levin [facility] CAROTID DUPLEX BILATERAL BY VASCULAR LAB 2019-09-05 21:08:50 Emil Ramachandran [facility] ECHO ROUTINE W/DOPPLER COLOR 2019-09-05 15:46:43 Ashlee Levin [facility] CT HEAD WO CONTRAST 2019-09-05 13:59:23 Juan F Boyd [facility] INTACT PTH CALCIUM GROUP 2019-09-05 13:33:00 Javed Chu [facility] URINALYSIS 2019-09-05 13:33:00 Javed Chu [facility] CREATININE, URINE RANDOM 2019-09-05 13:33:00 Javed Chu [facility] TOTAL PROTEIN, URINE RANDOM 2019-09-05 13:33:00 Javed Chu [facility] CREATINE KINASE 2019-09-05 10:32:00 Javed Chu [facility] URIC ACID 2019-09-05 10:32:00 Javed Chu [facility] TROPONIN I 2019-09-05 10:32:00 Ashlee Levin [facility] BASIC METABOLIC PANEL (NA, K, CL, CO2, GLUCOSE, BUN, CREATININE, CA) 2019-09-05 10:32:00 Ashlee Levin [facility] CBC WITH DIFF 2019-09-05 10:32:00 Ashlee Levin [facility] ACTIVATED PARTIAL THRMPLAS BRITTNEY 2019-09-05 10:32:00 Bridgett [facility] TROPONIN I 2019-09-05 04:27:00 Ashlee Levin [facility] ACTIVATED PARTIAL THRMPLAS BRITTNEY 2019-09-05 04:26:00 Bridgett [facility] COVID-19 (ID NOW RAPID TESTING) 2019-09-04 22:39:00 Navarro Cat [facility] CT ANGIOGRAM CHEST 2019-09-04 21:27:13 Navarro Cat [facility] CT HEAD WO CONTRAST 2019-09-04 19:51:25 Jael Cat [facility] URINALYSIS 2019-09-04 19:45:00 Navarro Cat [facility] ADC / LCC - DRUG SCREEN TRIAGE 2019-09-04 19:45:00 Navarro Cat [facility] TROPONIN I 2019-09-04 19:33:00 Navarro Cat [facility] THYROID STIMULATING HORMONE 2019-09-04 19:33:00 Ashlee Levin [facility] COMP. METABOLIC PANEL ([id number]) 2019-09-04 19:33:00 Navarro Cat [facility] LIPID PANEL ([id number])(TOTAL CHOLESTEROL, TRIGLYCERIDES, HDL) 2019-09-04 19:33:00 Singer Navarro [facility] CBC WITH DIFF 2019-09-04 19:33:00 Navarro Cat [facility] GLYCOSYLATED HEMOGLOBIN (A1C) 2019-09-04 19:33:00 Singer Navarro [facility] EKG-12 LEAD 2019-09-04 19:13:59 Navarro Cat [facility] NOTICE OF PRIVACY PRACTICES 2019-09-04 18:59:24 Doctor Unassigned, [place] [facility] Encounters Start Date/Time End Date/Time Encounter Type Admission Type Attending [facility] Facility Care Department Encounter ID Source 2023-12-14 08:36:11 Outpatient REAL REEVES [facility] [id number] [facility] 2020-12-12 21:45:14 Emergency [facility] [id number] [facility] 2020-12-12 14:04:44 Emergency [facility] [id number] [facility] 2020-12-10 08:27:32 Emergency [facility] [id number] [facility] 2023-12-13 15:15:00 2023-12-13 15:15:00 Office Visit Real Robert [facility] 1.2.840.114 350.1.13.10 4.2.7.2.686 [id number] [facility] 2023-12-13 15:15:00 2023-12-13 14:51:31 Outpatient REAL REEVES [facility] [id number] [facility] 2023-11-29 13:30:00 2023-11-29 13:30:00 Outpatient REAL REEVES [facility] [id number] [facility] 2023-11-29 06:11:00 2023-11-29 10:11:00 Outpatient R REAL ROBERT [facility] [id number] [facility] 2023-11-29 06:11:00 2023-11-29 10:11:00 Hospital Encounter Real Robert [facility] 1.2.840.114 350.1.13.10 4.2.7.2.686 [id number] [facility] 2023-11-29 07:10:00 2023-11-29 08:39:00 Surgery Real Robert [facility] 1.2.840.114 350.1.13.10 4.2.7.2.686 [id number] [facility] 2023-11-15 16:45:00 2023-11-15 16:54:16 Outpatient R SAY ROBERTIQ [facility] [id number] [facility] 2023-11-15 16:45:00 2023-11-15 16:54:16 Office Visit Real Robert [facility] 1.2.840.114 350.1.13.10 4.2.7.2.686 [id number] [facility] 2023-11-06 00:00:00 2023-11-06 09:20:30 Telephone Real Robert [facility] 1.2.840.114 350.1.13.10 4.2.7.2.686 [id number] [facility] 2023-10-25 00:00:00 2023-11-05 09:09:55 Telephone Yesica Real [facility] 1.2.840.114 350.1.13.10 4.2.7.2.686 [id number] [facility] 2023-11-01 14:15:00 2023-11-01 16:19:06 Outpatient R YESICAREAL [facility] [id number] [facility] 2023-11-01 14:15:00 2023-11-01 16:19:06 Office Visit Real Robert [facility] 1.2.840.114 350.1.13.10 4.2.7.2.686 [id number] [facility] 2023-10-11 13:00:00 2023-10-11 14:24:01 Outpatient R REAL ROBERT [facility] [id number] [facility] 2023-10-11 13:00:00 2023-10-11 14:24:01 [facility] 1.2.840.114 350.1.13.10 4.2.7.2.686 [id number] [facility] 2023-09-13 15:00:00 2023-09-13 17:33:29 Outpatient R REAL ROBERT [facility] [id number] [facility] 2023-09-13 15:00:00 2023-09-13 17:33:29 [facility] 1.2.840.114 350.1.13.10 4.2.7.2.686 [id number] [facility] 2023-08-28 07:15:00 2023-08-28 13:15:00 Outpatient R REAL ROBERT [facility] [id number] [facility] 2023-08-28 07:15:00 2023-08-28 13:15:00 [facility] 1.2.840.114 350.1.13.10 4.2.7.2.686 [id number] [facility] 2023-08-28 08:22:00 2023-08-28 10:39:00 [facility] 1.2.840.114 350.1.13.10 4.2.7.2.686 [id number] [facility] 2023-08-27 15:30:00 2023-08-27 15:45:00 Tool Planer Set Up Operator Visit Pob, Ad[facility] 1.2840.114 350.1.13.10 4.2.7.2.686 [id number] [facility] 2023-08-27 15:30:00 2023-08-27 15:30:00 Outpatient [facility] [id number] [facility] 2023-08-17 00:00:00 2023-08-17 10:34:49 Case Management Emeka [facility] ([facility]) 1.20.114 350.1.13.10 4.2.7.2.686 [id number] [facility] 2023-08-09 00:00:00 2023-08-09 10:59:30 Clinic Assessment Tamar Schmidt [facility] 1.20.114 350.1.13.10 4.2.7.2.686 [id number] [facility] 2023-03-10 15:55:00 2023-03-10 19:31:00 Emergency X RASHEEDA RIOJAS [facility] [id number] [facility] 2023-03-10 15:55:00 2023-03-10 19:31:00 Emergency Rasheeda Riojas [facility] 1.2840.114 350.1.13.10 4.2.7.2.686 [id number] [facility] 2023-02-28 00:00:00 2023-02-28 00:00:00 Orders Only Doctor Unassigned, [place] [facility] 1.2.840.114 350.1.13.10 4.2.7.2.686 [id number] [facility] 2023-01-29 11:37:19 2023-01-29 11:37:19 Outpatient ANDREI [facility] [id number] Sae Tavera 2022-10-30 00:00:00 2022-10-30 00:00:00 Telephone Yohannes Lopez [facility] 1..114 350.1.13.10 4.2.7.2.686 [id number] [facility] 2022-10-24 09:33:00 2022-10-27 18:46:00 Outpatient X MOE VALLEJO [facility] [id number] [facility] 2022-10-24 09:33:00 2022-10-27 18:46:00 Emergency Anitra Yen Jelani [facility] 1..114 350.1.13.10 4.2.7.2.686 [id number] [facility] 2022-09-21 13:20:00 2022-09-21 13:20:00 Outpatient R CADEN HANNA [facility] [id number] [facility] 2022-08-01 16:30:00 2022-08-01 16:30:00 Outpatient R CHELA TREVIÑO [facility] [id number] [facility] 2022-07-27 13:30:00 2022-07-27 13:30:00 Outpatient R PHILLIP PATEL [facility] [id number] [facility] 2022-07-27 00:00:00 2022-07-27 00:00:00 Orders Only Doctor Unassigned, [place] [facility] 1.0.114 350.1.13.10 4.2.7.2.686 [id number] [facility] 2022-07-24 15:00:00 2022-07-24 15:00:00 Outpatient R THOMAS, CARLOS UNGER [facility] [id number] [facility] 2022-07-18 00:00:00 2022-07-18 00:00:00 Transition of Care Alyssa Dawson 1.2.840.114 350.1.13.10 4.2.7.2.686 [id number] [facility] 2022-07-13 17:59:00 2022-07-16 15:46:00 Inpatient X MOE VALLEJO [facility] [id number] [facility] 2022-07-13 17:59:00 2022-07-16 15:46:00 Hospital Encounter Josiah Combs Jelani Edionwe, [facility] 1.2.840.114 350.1.13.10 4.2.7.2.686 [id number] [facility] 2022-07-15 13:30:00 2022-07-15 14:44:00 Surgery Chela Treviño [facility] [place] 1.2.840.114 350.1.13.10 4.2.7.2.686 [id number] [facility] 2021-06-07 00:00:00 2021-06-07 00:00:00 Transition of Care Alyssa Dawson 1.2.840.114 350.1.13.10 4.2.7.2.686 [id number] [facility] 2021-06-04 11:38:00 2021-06-06 17:30:00 Inpatient X EMIL RAMACHANDRAN [facility] [id number] [facility] 2021-06-04 11:38:00 2021-06-06 17:30:00 Hospital Encounter Rasheeda Riojas Yaman [facility] 1.2840.114 350.1.13.10 4.2.7.2.686 [id number] [facility] 2020-08-17 00:00:00 2020-08-17 00:00:00 Patient Outreach Cheryl Russell [place] 1.2840.114 350.1.13.10 4.2.7.2.686 [id number] [facility] 2020-07-08 13:00:00 2020-07-08 13:36:00 Emergency Navarro Cat [facility] 1.2840.114 350.1.13.10 4.2.7.2.686 [id number] [facility] 2020-07-05 11:30:00 2020-07-05 11:49:05 Outpatient BARBIE SEPULVEDA [facility] [id number] [facility] 2020-06-07 00:00:00 2020-06-07 00:00:00 Patient Outreach Cheryl Russell [place] 1.2840.114 350.1.13.10 4.2.7.2.686 [id number] [facility] 2020-06-05 11:15:00 2020-06-05 11:15:00 Outpatient BRYAN ESCALANTE [facility] [id number] [facility] 2020-06-04 00:00:00 2020-06-04 00:00:00 Transition of Care Alyssa Dawson Silvia Correiaveronica Otto 1.2840.114 350.1.13.10 4.2.7.2.686 [id number] [facility] 2020-06-01 11:17:00 2020-06-03 16:40:00 Emergency Rasheeda Riojas, Natanael Dee [facility] 1.2.840.114 350.1.13.10 4.2.7.2.686 [id number] [facility] 2020-06-01 00:00:00 2020-06-01 00:00:00 Orders Only Doctor Unassigned, [place] [facility] 1.2.840.114 350.1.13.10 4.2.7.2.686 [id number] [facility] 2019-10-30 15:30:00 2019-10-30 15:30:00 Outpatient R YOHANNES LOPEZ [facility] [id number] [facility] 2019-10-10 00:00:00 2019-10-10 00:00:00 Patient Outreach Nori Elias [facility] 1.2.840.114 350.1.13.10 4.2.7.2.686 [id number] [facility] 2019-10-10 00:00:00 2019-10-10 00:00:00 Patient Outreach Nori Elias [facility] 1.2.840.114 350.1.13.10 4.2.7.2.686 [id number] 044 [id number] 2019-10-02 11:53:41 2019-10-02 12:26:55 Office Visit Yohannes Lopez [facility] 1.2.840.114 350.1.13.10 4.2.7.2.686 [id number] [id number] [facility] 2019-10-02 11:53:41 2019-10-02 12:26:55 Office Visit Yohannes Lopez [facility] 1.2.840.114 350.1.13.10 4.2.7.2.686 [id number] [id number] 2019-10-02 11:00:00 2019-10-02 11:00:00 Outpatient R LOPEZ, SENDIL [facility] [id number] [facility] 2019-10-02 00:00:00 2019-10-02 00:00:00 Orders Only Doctor Unassigned, [place] [facility] 1.2.840.114 350.1.13.10 4.2.7.2.686 [id number] [facility] 2019-10-02 00:00:00 2019-10-02 00:00:00 Orders Only Doctor Unassigned, [place] [facility] 1.2.840.114 350.1.13.10 4.2.7.2.686 [id number] 2019-09-29 00:00:00 2019-09-29 00:00:00 Yohannes Wing [facility] 1.2840.114 350.1.13.10 4.2.7.2.686 [id number] [facility] 2019-09-08 00:00:00 2019-09-08 00:00:00 Transition of Care Alyssa Dawson 1.2.840.114 350.1.13.10 4.2.7.2.686 [id number] [facility] 2019-09-04 14:00:49 2019-09-06 16:49:00 Hospital Encounter Navarro Cat Yaman [facility] 1.2840.114 350.1.13.10 4.2.7.2.686 [id number] [facility] Results Test Description Test Time Test Comments Results Resul t Comments Source FL TIME OR (NON-REPORTABLE) 2023-11-29 16:28:55 These images do not require a Radiology diagnostic report. [facility] [id number] 12:15:15* Test Item Value Reference Range Interpretation Comme nts K (test code = 0159122636) 4.9 mmol/L 3.5-5.0 Lab Interpretation (test cod e = 38142-1) [facility] [id number] 13:12:30* Test Item Value Reference Range Interpretation Comme nts K (test code = 0863479695) 4.7 mmol/L 3.5-5.0 Lab Interpretation (test cod e = 86024-4) Normal [facility] [id number] 13:12:30* Test Item Value Reference Range Interpretation Comme nts K (test code = 3393265382) 4.7 mmol/L 3.5-5.0 Lab Interpretation (test cod e = 81169-9) Normal [facility] - ONCE [id number] 13:00:00* Test Item Value Reference Range Interpretation Comme nts ABO & RH (test code = 20) A POSITIVE IAT (test code = 1185) Negative [facility] - ONCE [id number] 13:00:00* Test Item Value Reference Range Interpretation Comme nts ABO & RH (test code = 20) A POSITIVE IAT (test code = 1185) Negative [facility] HospitalXR CHEST 1 [id number] 00:28:41ORDERING PROVIDER: ELLEN RIOJAS HISTORY: pulmonary edema TECHNIQUE: Frontal views of the Chest. COMPARISON: [facility] AM 2022-10-27 16:51:57* Test Item Value Reference Range Interpretation Comme nts KARLY AM (test code = 4241108075) 7.5 ug/dL 4.5-23.0 VLAD (test code = VLAD) Biotin has been reported to cause a positive bias, interpret results relative to patient's use of biotin. Lab Interpretation (test code = 43758-9) Normal [facility]MAGNESIUM2023-09-15 10:24:59* Test Item Value Reference Range Interpretation Comme nts MAGNESIUM (test code = 6713319184) 2.1 mg/dL 1.7-2.4 Lab Interpretation (test cod e = 63925-5) Normal [facility] HospitalBASIC METABOLIC PANEL (NA, K, CL, CO2, GLUCOSE, BUN, CREATININE, CA)2022-10-27 10:24:44* Test Item Value Reference Range Interpretation Comme nts NA (test code = 1923668584) 137 mmol/L 135-145 K (test code = 2663393337) 4.1 mmol/L 3.5-5.0 CL (test code = 2048434821) 108 mmol/L 98-108 CO2 TOTAL (test code = 3547354362) 23 mmol/L 23-31 AGAP (test code = 6734250676) 6 2-16 BUN (test code = 1931407301) 49 mg/dL 7-23 H GLUCOSE (test code = 8311844544) 98 mg/dL 70-110 CREATININE (test code = 2225978244) 3.80 mg/dL 0.60-1.25 H CALCIUM (test code = 6696173561) 8.8 mg/dL 8.6-10.6 eGFR (test code = 9543400125) 16.2 mL/min/1.73m2 VLAD (test code = VLAD) [...] imaging tests). Lab Interpretation (test code = 50431-1) Abnormal [facility] HospitalTroponin [id number] 09:27:25* Test Item Value Reference Range Interpretation Comme nts TROPONIN I (test code = 1778846470) 0.073 ng/mL <=0.034 H VLAD (test code [...] of biotin. Lab Interpretation (test code = 96449-0) Abnormal [facility] Hospital[facility] Metabolic Panel (NA, K, CL, CO2, GLUCOSE, BUN, CREATININE, CA)2022-10-25 09:07:46* Test Item Value Reference Range Interpretation Comme nts NA (test code = 9471484840) 139 mmol/L 135-145 K (test code = 5771651412) 3.9 mmol/L 3.5-5.0 CL (test code = 5344070775) 109 mmol/L 98-108 H CO2 TOTAL (test code = 4035813830) 24 mmol/L 23-31 AGAP (test code = 4944943857) 6 2-16 BUN (test code = 8789006455) 42 mg/dL 7-23 H GLUCOSE (test code = 3129704803) 88 mg/dL 70-110 CREATININE (test code = 3472120463) 3.38 mg/dL 0.60-1.25 H CALCIUM (test code = 4398868124) 8.6 mg/dL 8.6-10.6 eGFR (test code = 4413862135) 18.6 mL/min/1.73m2 VLAD (test code = VLAD) [...] imaging tests). Lab Interpretation (test code = 69563-9) Abnormal [facility] HospitalMagnesium [id number] 09:07:46* Test Item Value Reference Range Interpretation Comme nts MAGNESIUM (test code = 5272251439) 2.0 mg/dL 1.7-2.4 Lab Interpretation (test cod e = 34097-8) Normal [facility] HospitalTroponin [id number] 03:54:28* Test Item Value Reference Range Interpretation Comme nts TROPONIN I (test code = 4734753667) 0.065 ng/mL <=0.034 H VLAD (test code [...] of biotin. Lab Interpretation (test code = 69140-7) Abnormal [facility] HospitalLactic Acid Whole [id number] 23:43:00* Test Item Value Reference Range Interpretation Comme nts LACTIC ACID (test code = 0380456289) 1.48 mmol/L 0.50-2.20 Lab Interpretation (test cod e = 44717-1) Normal [facility]ctic Acid Whole [id number] 23:43:00* Test Item Value Reference Range Interpretation Comme nts LACTIC ACID (test code = 9698219355) 1.48 mmol/L 0.50-2.20 Lab Interpretation (test cod e = 77124-6) Normal [facility] HospitalTransthoracic echo (TTE)2021-06-06 21:38:24* Test Item Value Reference Range Interpretation Comme nts LVIDD (test code = 5138153340) 4.80 cm IVS (test code = 8532221569) 1.72 cm Interventricular Septum Diastolic Thickness by 2D (test code = 8939983) 1.72 cm LVPWD (test code = 9762910467) 1.72 cm PW (test code = 4642404402) 1.72 cm 0.6-1.1 EF(Teich) (test code = 1840057672) 67.20 % LVIDS (test code = 8589492289) 3.00 cm FS (test code = 3713963652) 37 % EF - 2D (test code = 99032060) 67.20 % Ao root annulus (test code = 8534422998) 3.5 cm Ao root diam (test code = 0613219380) 3.50 cm Aortic root (test code = 0357360106) 3.5 cm LA size (test code = 7833390920) 4.7 cm LAV(MOD-sp4) (test code = 2977715769) 71.50 mL MV Prop V (test code = 5407070656) 36.90 cm/s E wave decelartion time (test code = 7093341935) 0.27 s MV Peak E Naun (test code = 7031333098) 91.1 cm/s MV Peak A Naun (test code = 9365925756) 124.7 cm/s E/A ratio (test code = 6810385449) ratio MV E/e' septal (test code = 0783063947) 4.3 cm/s Tapse (test code = 9267488567) 2.09 cm Ao peak naun (test code = 4645914429) 191.1 cm/s Ao max PG (test code = 5931052799) 14.90 mm[Hg] AV peak gradient (test code = 1517133333) mmHg Aortic valve mean velocity (test code = 7063898042) 128.5 cm/s Ao VTI (test code = 4423618884) 30.8 cm AV mean gradient (test code = 3027498963) mmHg LA volume (BP) (test code = 1089817218) 82.1 mL LAV(MOD-sp2) (test code = 4294879829) 91.40 mL Radiology Study observation (narrative) (test code = 54258-1) VLAD (test code = VLAD) ?Left?Ventricle: Left [...] 2.37 sq meters 184/102 78 [facility] (NA, K, CL, CO2, GLUCOSE, BUN, CREATININE, CA)2021-06-06 12:00:39* Test Item Value Reference Range Interpretation Comme nts NA (test code = 9699434492) 138 mmol/L 135-145 K (test code = 2981281822) 4.1 mmol/L 3.5-5.0 CL (test code = 5316428270) 107 mmol/L 98-108 CO2 TOTAL (test code = 2812433388) 24 mmol/L 23-31 AGAP (test code = 8228774691) 2-16 BUN (test code = 3415916427) 42 mg/dL 7-23 H GLUCOSE (test code = 3587891099) 114 mg/dL 70-110 H CREATININE (test code = 7929421838) 2.90 mg/dL 0.60-1.25 H CALCIUM (test code = 2339499329) 8.9 mg/dL 8.6-10.6 eGFR (test code = 4135073472) mL/min/1.73m2 VLAD (test code = VLAD) Association [...] imaging tests). Lab Interpretation (test code = 54879-3) Abnormal [facility] HospitalTROPONIN [id number] 14:17:20* Test Item Value Reference Range Interpretation Comments TROPONIN I (test code = 1650751490) 0.132 ng/mL See_Comment H [Automated message] The [...] of biotin. Lab Interpretation (test code = 14862-0) Abnormal [facility] HospitalTROPONIN [id number] 09:42:43* Test Item Value Reference Range Interpretation Comments TROPONIN I (test code = 7498656429) 0.122 ng/mL See_Comment H [Automated message] The [...] of biotin. Lab Interpretation (test code = 32497-2) Abnormal [facility] HospitalMAGNESIUM2022-04-24 09:32:20* Test Item Value Reference Range Interpretation Comme nts MAGNESIUM (test code = 9429835235) 2.0 mg/dL 1.7-2.4 Lab Interpretation (test cod e = 76806-2) Normal [facility] HospitalBASI METABOLIC PANEL (NA, K, CL, CO2, GLUCOSE, BUN, CREATININE, CA)2021-06-05 09:32:00* Test Item Value Reference Range Interpretation Comme nts NA (test code = 1331164396) 137 mmol/L 135-145 K (test code = 3414018406) 4.1 mmol/L 3.5-5.0 CL (test code = 6674800170) 105 mmol/L 98-108 CO2 TOTAL (test code = 1921442102) 25 mmol/L 23-31 AGAP (test code = 8521383138) 2-16 BUN (test code = 5854103359) 36 mg/dL 7-23 H GLUCOSE (test code = 8858715408) 132 mg/dL 70-110 H CREATININE (test code = 2493476963) 2.68 mg/dL 0.60-1.25 H CALCIUM (test code = 0513588906) 9.1 mg/dL 8.6-10.6 eGFR (test code = 6775827706) mL/min/1.73m2 VLAD (test code = VLAD) Association [...] imaging tests). Lab Interpretation (test code = 73752-8) Abnormal [facility] HospitalPHOSPHORUS2022-04-24 09:32:00* Test Item Value Reference Range Interpretation Comme nts PHOSPHORUS (test code = 1601569115) 3.3 mg/dL 2.5-5.0 Lab Interpretation (test cod e = 93621-2) Normal [facility] HospitalCBC WITH [id number] 08:57:19* Test Item Value Reference Range Interpretation [...] 32.7 g/dL 31.2-35.0 RDW-SD (test code = 30568-4) 39.6 fL 38.5-51.6 RDW-CV (test code = 788-0) 13.0 % 12.1-15.4 PLT (test code = 777-3) See_Comment [Automated messa ge] The system which generated this result transmitted reference range: 150 - 328 10*3/?L. The reference range was not used to interpret this result as normal/abnormal. MPV (test code = 65194-3) 10.5 fL 9.8-13.0 NRBC/100 WBC (test code = 8327650035) See_Comment [Automated abcdexperts ssage] The system which generated this result transmitted reference range: 0.0 - 10.0 /100 WBCs. The reference range was not used to interpret this result as normal/abnormal. NRBC x10^3 (test code = 3208086603) <0.01 See_Comment [Automated me ssage] The system which generated this result transmitted reference range: 10*3/?L. The reference range was not used to interpret this result as normal/abnormal. GRAN MAT (NEUT) % (test code = 770-8) 61.4 % IMM GRAN % (test code = 1370270960) 0.20 % LYMPH % (test code = 736-9) 27.4 % MONO % (test code = 5905-5) 7.9 % EOS % (test code = 713-8) 2.5 % BASO % (test code = 706-2) 0.6 % GRAN MAT x10^3(ANC) (test code = 5031942124) 2.96 10*3/uL 1.99-6.95 IMM GRAN x10^3 (test code = 1168024150) <0.03 0.00-0.06 LYMPH x10^3 (test code = 731-0) 1.32 10*3/uL 1.09-3.23 MONO x10^3 (test code = 742-7) 0.38 10*3/uL 0.36-1.02 EOS x10^3 (test code = 711-2) 0.12 10*3/uL 0.06-0.53 BASO x10^3 (test code = 704-7) 0.03 10*3/uL 0.01-0.09 [id number]:16:30* Test Item Value Reference Range Interpretation Comments TROPONIN I (test code = 5370059236) 0.072 ng/mL See_Comment H [Automated message] The [...] of biotin. Lab Interpretation (test code = 09177-2) [id number]:12:15* Test Item Value Reference Range Interpretation Comments TROPONIN I (test code = 6960683775) 0.069 ng/mL See_Comment H [Automated message] The [...] of biotin. Lab Interpretation (test code = 11779-6) [facility]normal [id number] 18:09:14* Test Item Value Reference Range Interpretation Comme nts NT-proBNP (test code = 2535040704) 989 pg/mL See_Comment H [Automated message] The system which generated this result transmitted reference range: <=125. The reference range was not used to interpret this result as normal/abnormal. VLAD (test code = VLAD) Biotin has been reported to cause a negative bias, interpret results relative to patient's use of biotin. Lab Interpretation (test code = 67424-0) [facility]normal [facility]RM[facility] [id number] 18:07:14* Test Item Value Reference Range Interpretation Comme nts APTT Patient (test code = 3173-2) See_Comment [Automated message] The system which generated this result transmitted reference range: 23 - 38 Seconds. The reference range was not used to interpret this result as normal/abnormal. VLAD (test code = VLAD) The [facility] patient population mean normal value for aPTT is 30 seconds. Lab Interpretation (test code = 89850-6) Normal [facility] / [id number] 18:05:13* Test Item Value Reference Range Interpretation Comme [facility] PROTIME PATIENT (test code = 5964-2) See_Comment [Automated [employer] ge] The system which generated this result transmitted reference range: 12.0 - 14.7 Seconds. The reference range was not used to interpret this result as normal/abnormal. INR (test code = 6301-6) Normal INR <1.1; Warfarin Therapeutic range 2.0 to 3.0 or 2.5 to 3.5, depending upon the indications. Lab Interpretation (test code = 66685-9) Normal [facility]OL[facility] (10783)2021-06-04 18:04:33* Test Item Value Reference Range Interpretation Comme [facility] NA (test code = 8553216293) 138 mmol/L 135-145 K (test code = 8812868879) 4.5 mmol/L 3.5-5.0 CL (test code = 0674993840) 104 mmol/L 98-108 CO2 TOTAL (test code = 6278863255) 26 mmol/L 23-31 AGAP (test code = 5979180529) 2-16 BUN (test code = 4329132877) 33 mg/dL 7-23 H GLUCOSE (test code = 9339091459) 100 mg/dL 70-110 CREATININE (test code = 8261986439) 2.75 mg/dL 0.60-1.25 H TOTAL BILI (test code = 9194405703) 0.7 mg/dL 0.1-1.1 CALCIUM (test code = 8260265773) 9.5 mg/dL 8.6-10.6 T PROTEIN (test code = 5203437229) 7.1 g/dL 6.3-8.2 ALBUMIN (test code = 6261313645) 4.2 g/dL 3.5-5.0 ALK PHOS (test code = 7727722436) 82 U/L 34-122 ALTv (test code = 1742-6) 23 U/L 5-50 AST(SGOT) (test code = 0259395190) 25 U/L 13-40 eGFR (test code = 8392444048) mL/min/1.73m2 VLAD (test code = VLAD) Association [...] imaging tests). Lab Interpretation (test code = 48789-7) Abnormal [facility] WITH [id number] 17:43:32* Test Item Value Reference Range Interpretation Comme nts WBC (test code = 6690-2) See_Comment [Automated [employer]] The system which generated this result transmitted reference range: 4.20 - 10.70 10*3/?L. The reference range was not used to interpret this result as normal/abnormal. RBC (test code = 789-8) See_Comment [Automated [employer]] The system which generated this result transmitted [...] 32.7 g/dL 31.2-35.0 RDW-SD (test code = 64651-9) 39.8 fL 38.5-51.6 RDW-CV (test code = 788-0) 12.9 % 12.1-15.4 PLT (test code = 777-3) See_Comment [Automated messa ge] The system which generated this result transmitted reference range: 150 - 328 10*3/?L. The reference range was not used to interpret this result as normal/abnormal. MPV (test code = 11014-5) 10.5 fL 9.8-13.0 NRBC/100 WBC (test code = 6666033389) See_Comment [Automated me ssage] The system which generated this result transmitted reference range: 0.0 - 10.0 /100 WBCs. The reference range was not used to interpret this result as normal/abnormal. NRBC x10^3 (test code = 1214590595) <0.01 See_Comment [Automated me ssage] The system which generated this result transmitted reference range: 10*3/?L. The reference range was not used to interpret this result as normal/abnormal. GRAN MAT (NEUT) % (test code = 770-8) 56.2 % IMM GRAN % (test code = 2615029713) 0.20 % LYMPH % (test code = 736-9) 30.3 % MONO % (test code = 5905-5) 9.7 % EOS % (test code = 713-8) 3.0 % BASO % (test code = 706-2) 0.6 % GRAN MAT x10^3(ANC) (test code = 5793389679) 2.62 10*3/uL 1.99-6.95 IMM GRAN x10^3 (test code = 7164500953) <0.03 0.00-0.06 LYMPH x10^3 (test code = 731-0) 1.41 10*3/uL 1.09-3.23 MONO x10^3 (test code = 742-7) 0.45 10*3/uL 0.36-1.02 EOS x10^3 (test code = 711-2) 0.14 10*3/uL 0.06-0.53 BASO x10^3 (test code = 704-7) 0.03 10*3/uL 0.01-0.09 [facility] METABOLIC PANEL (NA, K, CL, CO2, GLUCOSE, BUN, CREATININE, CA)2020-06-03 13:06:15* Test Item Value Reference Range Interpretation Comme nts NA (test code = 2554210277) 135 mmol/L 135-145 K (test code = 9470872651) 4.2 mmol/L 3.5-5.0 CL (test code = 0788649484) 103 mmol/L 98-108 CO2 TOTAL (test code = 8548702418) 26 mmol/L 23-31 AGAP (test code = 7057686284) 2-16 BUN (test code = 9183181556) 35 mg/dL 7-23 H GLUCOSE (test code = 8440489495) 104 mg/dL 70-110 CREATININE (test code = 4394134600) 2.31 mg/dL 0.60-1.25 H CALCIUM (test code = 8313808468) 8.9 mg/dL 8.6-10.6 eGFR (test code = 0154267435) mL/min/1.73m2 VLAD (test code = VLAD) Association [...] imaging tests). Lab Interpretation (test code = 02254-8) [facility]normal [facility]2021-[facility] 13:06:15* Test Item Value Reference Range Interpretation Comme nts MAGNESIUM (test code = 5408543322) 2.1 mg/dL 1.7-2.4 Lab Interpretation (test cod e = 91932-1) Normal [facility] WITH [id number] 12:01:28* Test Item Value Reference Range Interpretation Comme nts WBC (test code = 6690-2) See_Comment [Automated [employer]] The system which generated this result transmitted reference range: 4.20 - 10.70 10*3/?L. The reference range was not used to interpret this result as normal/abnormal. RBC (test code = 789-8) See_Comment [Automated [employer]] The system which generated this result transmitted [...] 32.9 g/dL 31.2-35.0 RDW-SD (test code = 39015-6) 41.2 fL 38.5-51.6 RDW-CV (test code = 788-0) 13.2 % 12.1-15.4 PLT (test code = 777-3) See_Comment [Automated messa ge] The system which generated this result transmitted reference range: 150 - 328 10*3/?L. The reference range was not used to interpret this result as normal/abnormal. MPV (test code = 59904-1) 10.9 fL 9.8-13.0 NRBC/100 WBC (test code = 1801111564) See_Comment [Automated me ssage] The system which generated this result transmitted reference range: 0.0 - 10.0 /100 WBCs. The reference range was not used to interpret this result as normal/abnormal. NRBC x10^3 (test code = 3204509464) <0.01 See_Comment [Automated me ssage] The system which generated this result transmitted reference range: 10*3/?L. The reference range was not used to interpret this result as normal/abnormal. GRAN MAT (NEUT) % (test code = 770-8) 56.0 % IMM GRAN % (test code = 8335334586) 0.20 % LYMPH % (test code = 736-9) 25.1 % MONO % (test code = 5905-5) 14.9 % EOS % (test code = 713-8) 3.5 % BASO % (test code = 706-2) 0.3 % GRAN MAT x10^3(ANC) (test code = 3156297316) 3.66 10*3/uL 1.99-6.95 IMM GRAN x10^3 (test code = 0044431927) <0.03 0.00-0.06 LYMPH x10^3 (test code = 731-0) 1.64 10*3/uL 1.09-3.23 MONO x10^3 (test code = 742-7) 0.97 10*3/uL 0.36-1.02 EOS x10^3 (test code = 711-2) 0.23 10*3/uL 0.06-0.53 BASO x10^3 (test code = 704-7) <0.03 0.01-0.09 [facility] COVID [id number] 03:20:06COVID DMT InterpretationInterpretation/Recommendations: Molecular NAAT Tests for Active Infection with the SARS-CoV-2 Virus: The patient has currently tested negative for the SARS-CoV-2 virus that causes COVID-19 illness, subsequent to a previously positive test. At this time, the patient may be rec overing from the infection, which is likely if any present symptoms are decreasing. In doyd-zp-mywkvzjf illness, the patient may be considered no [...] COVID-19 testing the patient has had at [facility], including molecular NAAT testing (more commonly known as PCR testing and Rapid ID Now testing) and antibody testing. It does not take into account any testing that a patient has had outside of the [facility] medical record. [facility] LABORATORY SERVICESCOVID IfqyicgGJNP-WrL-6 Rapid ID NOW (no units) ? ? Date ? Value ? 06/01/2020 ? Not Detected ? ? ? 09/04/2019 ? Positive (A) ? [facility]ORAT[facility] SERVICESUnNorth [facility] HospitalTroponin [id number] 13:48:42* Test Item Value Reference Range Interpretation Comme nts TROPONIN I (test code = 5599421384) 0.119 ng/mL See_Comment H Hemolyzed specimen [Automated [...] biotin. ? Lab Interpretation (test code = 31499-6) Abnormal [facility] HospitalACTIVATED PARTIAL THRMPLAS [id number] 12:21:16* Test Item Value Reference Range Interpretation Comme nts APTT Patient (test code = 3173-2) See_Comment H [Automated messa ge] The system which generated this result transmitted reference range: 26 - 36 Seconds. The reference range was not used to interpret this result as normal/abnormal. Lab Interpretation (test code = 78108-8) Abnormal [facility] HospitalGlycosylated Hemoglobin (A1C)2020-06-02 12:04:04* Test Item Value Reference Range Interpretation Comme [facility] HGB A1C (test code = 4548-4) 5.7 % 4.0-5.7 VLAD (test code = VLAD) Reference RangesNormal: <5.7%Prediabetes: 5.7 - 6.4%Diabetes: > 6.5% Lab Interpretation (test code = 14543-6) Normal [facility] HospitalTroponin [id number] 07:18:35* Test Item Value Reference Range Interpretation Comme [facility] TROPONIN I (test code = 3102824376) 0.130 ng/mL See_Comment H [Automated message] The [...] biotin. ? Lab Interpretation (test code = 72736-2) Abnormal [facility] HospitalBasi Metabolic Panel (NA, K, CL, CO2, GLUCOSE, BUN, CREATININE, CA)2020-06-02 07:06:14* Test Item Value Reference Range Interpretation Comme nts NA (test code = 3306996026) 136 mmol/L 135-145 K (test code = 0082827801) 3.9 mmol/L 3.5-5.0 CL (test code = 0863701488) 104 mmol/L 98-108 CO2 TOTAL (test code = 1625350178) 25 mmol/L 23-31 AGAP (test code = 8325941377) 2-16 BUN (test code = 3529601410) 38 mg/dL 7-23 H GLUCOSE (test code = 7817073743) 103 mg/dL 70-110 CREATININE (test code = 5131064451) 2.49 mg/dL 0.60-1.25 H CALCIUM (test code = 0595863172) 9.0 mg/dL 8.6-10.6 eGFR (test code = 6429078466) mL/min/1.73m2 VLAD (test code = VLAD) Association [...] imaging tests). Lab Interpretation (test code = 82373-1) Abnormal [facility] HospitalMagnesium Haqvj2078-09-45 07:06:14* Test Item Value Reference Range Interpretation Comme nts MAGNESIUM (test code = 1081085864) 1.8 mg/dL 1.7-2.4 Lab Interpretation (test cod e = 25210-3) Normal [facility] HospitalACTIVATED PARTIAL THRMPLAS [id number] 06:54:52* Test Item Value Reference Range Interpretation Comme nts APTT Patient (test code = 3173-2) See_Comment [Automated [employer]] The system which generated this result transmitted reference range: 26 - 36 Seconds. The reference range was not used to interpret this result as normal/abnormal. Lab Interpretation (test code = 72206-4) Normal [facility] HospitalThyroid Stimulating Hormone (TSH)2020-06-02 00:27:14* Test Item Value Reference Range Interpretation Comme nts TSH (test code = 4690719545) See_Comment [Automated [employer]] The system which generated this result transmitted reference range: 0.45 - 4.70 mIU/L. The reference range was not used to interpret this result as normal/abnormal. Lab Interpretation (test code = 30318-3) Normal [facility] HospitalTroponin [id number] 00:08:44* Test Item Value Reference Range Interpretation Comme nts TROPONIN I (test code = 8869187863) 0.096 ng/mL See_Comment H [Automated message] The [...] biotin. ? Lab Interpretation (test code = 51526-6) Abnormal [facility] HospitalPhosphorus [id number] 23:57:01* Test Item Value Reference Range Interpretation Comme nts PHOSPHORUS (test code = 7598322401) 2.8 mg/dL 2.5-5.0 Lab Interpretation (test cod e = 06477-3) Normal [facility] HospitalLipid Panel (Total Cholesterol, Triglycerides, HDL)2020-06-01 23:07:05* Test Item Value Reference Range Interpretation Comme nts CHOL (test code = 7843596444) 171 mg/dL 120-200 HDL (test code = 9260458197) 53 mg/dL >40 HDLC RATIO (test code = 8369435580) See_Comment [Gemmyo] The system which generated this result transmitted reference range: <=5.0. The reference range was not used to interpret this result as normal/abnormal. TRIG (test code = 3498450480) 54 mg/dL 30-170 LDL CHOL (test code = 61344-7) 107 mg/dL See_Comment [Gemmyo] The system which generated this result transmitted reference range: <=160. The reference range was not used to interpret this result as normal/abnormal. VLDL (test code = 0956554992) 11 mg/dL 5-60 Lab Interpretation (test code = 38292-3) Normal [facility] HospitalCritical [id number] 21:08:59Rasheeda Riojas MD ? ? 06/01/2020 ?4:09 [...] patient's response to treatment and examination of patientUnNorth Central Surgical Center HospitalURINE DRUG (IMMUNOASSAY) - 4 ER [id number] 20:31:46* Test Item Value Reference Range Interpretation Comme nts AMPHET (test code = 7981452119) Negative Negative Cocaine Metabolite (test code = 8273114283) Presumptive Positive Negative A OPIATES (test code = 4498543181) Negative Negative THC (test code = 0985940946) Negative Negative VLAD (test code = VLAD) Urine Drug Cutoff Ranges Amphetamine: ? 1,000 ng/mLCocaine: ? 150 ng/mLOpiates: ? 300 ng/mLCannabinoids: ?50 ng/mL The results are to be used only for medical (i.e., treatment) purposes. Unconfirmed screening results must not be used for non-medical purposes (e.g., employment testing, legal testing). Lab Interpretation (test code = 20467-9) Abnormal [facility] HospitalTroponin [id number] 17:18:05* Test Item Value Reference Range Interpretation Comme [facility] TROPONIN I (test code = 2315799954) 0.088 ng/mL See_Comment H [Automated message] The [...] biotin. ? Lab Interpretation (test code = 49989-4) Abnormal [facility] HospitalN-TERMINAL [id number] 17:15:05* Test Item Value Reference Range Interpretation Comme nts NT-proBNP (test code = 4728823833) 900 pg/mL See_Comment H [Automated message] The system which generated this result transmitted reference range: <=125. The reference range was not used to interpret this result as normal/abnormal. VLAD (test code = VLAD) Biotin has been reported to cause a negative bias, interpret results relative to patient's use of biotin. Lab Interpretation (test code = 50857-3) Abnormal [facility] HospitalCOVID-19 (ID NOW RAPID TESTING)2020-06-01 17:10:05* Test Item Value Reference Range Interpretation Comme nts SARS-CoV-2 Rapid ID NOW (test code = 98532-7) Not Detected Not Detected VLAD (test code = VLAD) ID NOW COVID-19 As say is an isothermal nucleic acid amplification test intended for the qualitative detection of nucleic acid from SARS-CoV-2 viral RNA in nasopharyngeal (HORSE RACE TIMER) specimens. It is used under Emergency Use [...] clinically indicated. Lab Interpretation (test code = 30622-7) Normal [facility] Metabolic Panel (NA, K, CL, CO2, GLUCOSE, BUN, CREATININE, CA)2020-06-01 17:07:08* Test Item Value Reference Range Interpretation Comme nts NA (test code = 8316219356) 137 mmol/L 135-145 K (test code = 5475809694) 4.2 mmol/L 3.5-5.0 CL (test code = 9061460108) 104 mmol/L 98-108 CO2 TOTAL (test code = 1191943968) 24 mmol/L 23-31 AGAP (test code = 5162377592) 2-16 BUN (test code = 4322547529) 36 mg/dL 7-23 H GLUCOSE (test code = 6590973299) 99 mg/dL 70-110 CREATININE (test code = 3021901320) 2.38 mg/dL 0.60-1.25 H CALCIUM (test code = 7702135432) 9.1 mg/dL 8.6-10.6 eGFR (test code = 0522962800) mL/min/1.73m2 VLAD (test code = VLAD) Association [...] imaging tests). Lab Interpretation (test code = 05153-3) Abnormal [facility] HospitalHepatic Function Panel (ALB, T.PRO, BILI T, BU/BC, ALT, AST, ALK PHOS)2020-06-01 17:07:03* Test Item Value Reference Range Interpretation Comme nts TOTAL BILI (test code = 4271251681) 0.5 mg/dL 0.1-1.1 BILI UNCON (test code = 2787468918) 0.4 mg/dL 0.1-1.1 BILI CONJ (test code = 6542360447) 0.0 mg/dL 0.0-0.3 T PROTEIN (test code = 0353545030) 6.9 g/dL 6.3-8.2 ALBUMIN (test code = 0475496026) 4.1 g/dL 3.5-5.0 ALK PHOS (test code = 7964574155) 96 U/L 34-122 ALTv (test code = 1742-6) 17 U/L 5-50 AST(SGOT) (test code = 9725954430) 26 U/L 13-40 Lab Interpretation (test cod e = 36592-8) Normal [facility] HospitalaPTT2021-04-20 17:04:25* Test Item Value Reference Range Interpretation Comme [facility] APTT Patient (test code = 3173-2) See_Comment [Automated message] The system which generated this result transmitted reference range: 23 - 38 Seconds. The reference range was not used to interpret this result as normal/abnormal. VLAD (test code = VLAD) The [facility] patient population mean normal value for aPTT is 30 seconds. Lab Interpretation (test code = 83481-0) Normal [facility] HospitalProthrombin Time (PT) / [id number] 17:02:24 * Test Item Value Reference Range Interpretation Comme [facility] PROTIME PATIENT (test code = 5964-2) See_Comment [Automated [employer]] The system which generated this result transmitted reference range: 12.0 - 14.7 Seconds. The reference range was not used to interpret this result as normal/abnormal. INR (test code = 6301-6) Normal INR <1.1; Warfarin Therapeutic range 2.0 to 3.0 or 2.5 to 3.5, depending upon the indications. Lab Interpretation (test code = 20689-0) Normal [facility] with Uhyiwphgypox6555-93-99 16:59:03* Test Item Value Reference Range Interpretation Comme nts WBC (test code = 6690-2) See_Comment [Automated [employer]] The system which generated this result transmitted reference range: 4.20 - 10.70 10*3/?L. The reference range was not used to interpret this result as normal/abnormal. RBC (test code = 789-8) See_Comment [Automated [employer]] The system which generated this result [...] 32.7 g/dL 31.2-35.0 RDW-SD (test code = 97313-0) 42.2 fL 38.5-51.6 RDW-CV (test code = 788-0) 13.3 % 12.1-15.4 PLT (test code = 777-3) See_Comment [Automated [employer]] The system which generated this result transmitted reference range: 150 - 328 10*3/?L. The reference range was not used to interpret this result as normal/abnormal. MPV (test code = 71948-9) 10.8 fL 9.8-13.0 NRBC/100 WBC (test code = 9734018436) See_Comment [Automated abcdexperts ssage] The system which generated this result transmitted reference range: 0.0 - 10.0 /100 WBCs. The reference range was not used to interpret this result as normal/abnormal. NRBC x10^3 (test code = 2728613855) <0.01 See_Comment [Automated me ssage] The system which generated this result transmitted reference range: 10*3/?L. The reference range was not used to interpret this result as normal/abnormal. GRAN MAT (NEUT) % (test code = 770-8) 59.7 % IMM GRAN % (test code = 9704651331) 0.20 % LYMPH % (test code = 736-9) 26.4 % MONO % (test code = 5905-5) 9.3 % EOS % (test code = 713-8) 3.8 % BASO % (test code = 706-2) 0.6 % GRAN MAT x10^3(ANC) (test code = 0579827946) 2.96 10*3/uL 1.99-6.95 IMM GRAN x10^3 (test code = 2530880444) <0.03 0.00-0.06 LYMPH x10^3 (test code = 731-0) 1.31 10*3/uL 1.09-3.23 MONO x10^3 (test code = 742-7) 0.46 10*3/uL 0.36-1.02 EOS x10^3 (test code = 711-2) 0.19 10*3/uL 0.06-0.53 BASO x10^3 (test code = 704-7) 0.03 10*3/uL 0.01-0.09 [facility] 1 [id number] 16:57:50HISTORY: Dyspnea. TECHNIQUE: Portable AP erect view [...] No signs of acute cardiopulmonary disease.[facility] HospitalINTACT PTH CALCIUM [id number] 16:15:00* Test Item Value Reference Range Interpretation Comme nts CALCIUM (test code = 8260009964) 8.7 mg/dL 8.6-10.6 PTH-INTACT (test code = 1747505085) 63.1 pg/mL PTH-CA Interpretation (test code = 3510335026) PTH IS Appropria te for Calcium [facility] with Okmllyuznojc9421-79-76 10:39:00* Test Item Value Reference Range Interpretation Comme nts WBC (test code = 6690-2) See_Comment [Automated [employer]] The system which generated this result transmitted reference range: 4.20 - 10.70 10*3/?L. The reference range was not used to interpret this result as normal/abnormal. RBC (test code = 789-8) See_Comment [Automated [employer]] The system which generated this result transmitted [...] 33.3 g/dL 31.2-35 RDW-SD (test code = 19366-0) 42.3 fL 38.5-51.6 RDW-CV (test code = 788-0) 13.7 % 12.1-15.4 PLT (test code = 777-3) See_Comment [Automated messa ge] The system which generated this result transmitted reference range: 150 - 328 10*3/?L. The reference range was not used to interpret this result as normal/abnormal. MPV (test code = 63944-5) 11.0 fL 9.8-13 NRBC/100 WBC (test code = 5295022238) See_Comment [Automated me ssage] The system which generated this result transmitted reference range: 0.0 - 10.0 /100 WBCs. The reference range was not used to interpret this result as normal/abnormal. NRBC x10^3 (test code = 6251731654) <0.01 See_Comment [Automated messa ge] The system which generated this result transmitted reference range: 10*3/?L. The reference range was not used to interpret this result as normal/abnormal. GRAN MAT (NEUT) % (test code = 770-8) 44.6 % IMM GRAN % (test code = 7093123000) 0.20 % LYMPH % (test code = 736-9) 43.1 % MONO % (test code = 5905-5) 9.0 % EOS % (test code = 713-8) 2.9 % BASO % (test code = 706-2) 0.2 % GRAN MAT x10^3(ANC) (test code = 4174284067) 1.87 10*3/uL 1.99-6.95 L IMM GRAN x10^3 (test code = 1987318487) <0.03 0-0.06 LYMPH x10^3 (test code = 731-0) 1.81 10*3/uL 1.09-3.23 MONO x10^3 (test code = 742-7) 0.38 10*3/uL 0.36-1.02 EOS x10^3 (test code = 711-2) 0.12 10*3/uL 0.06-0.53 BASO x10^3 (test code = 704-7) <0.03 0.01-0.09 Lab Interpretation (test code = 20325-0) Abnormal [facility] Metabolic Panel (NA, K, CL, CO2, GLUCOSE, BUN, CREATININE, CA)2019-09-06 10:39:00* Test Item Value Reference Range Interpretation Comme nts NA (test code = 1434354723) 136 mmol/L 135-145 K (test code = 2527456934) 3.8 mmol/L 3.5-5 CL (test code = 9940222850) 106 mmol/L 98-108 CO2 TOTAL (test code = 0311170802) 25 mmol/L 23-31 AGAP (test code = 6096787346) 2-16 BUN (test code = 3819945424) 27 mg/dL 7-23 H GLUCOSE (test code = 6316620679) 89 mg/dL 70-110 CREATININE (test code = 3864616171) 2.06 mg/dL 0.6-1.25 H CALCIUM (test code = 1497104461) 8.7 mg/dL 8.6-10.6 eGFR Calculation (Non-) (test code = 2161230258) mL/min/1.73m2 eGFR Calculation () (test code = 7101784809) mL/min/1.73m2 VLAD (test code = VLAD) Association [...] imaging tests). Lab Interpretation (test code = 19722-3) Abnormal [facility] HospitalCT HEAD WO [id number] 14:39:09No acute intracranial hemorrhage or mass effect. [...] hypoattenuation is also essentially changed in degree [id number] and favored to represent sequelae of microvascular [...] hypoattenuation is also essentially changed in degree [id number] and favored to represent sequelae of microvascular [...] this study and agree with theabove report. [facility] with Pkujlbwxefmp0037-09-05 14:22:00* Test Item Value Reference Range Interpretation Comme nts WBC (test code = 6690-2) See_Comment [Gemmyo] The system which generated this result transmitted reference range: 4.20 - 10.70 10*3/?L. The reference range was not used to interpret this result as normal/abnormal. RBC (test code = 789-8) See_Comment [Gemmyo] The system which generated this result transmitted [...] 32.4 g/dL 31.2-35 RDW-SD (test code = 07877-6) 42.4 fL 38.5-51.6 RDW-CV (test code = 788-0) 13.5 % 12.1-15.4 PLT (test code = 777-3) See_Comment [Automated messa ge] The system which generated this result transmitted reference range: 150 - 328 10*3/?L. The reference range was not used to interpret this result as normal/abnormal. MPV (test code = 73464-5) 11.1 fL 9.8-13 NRBC/100 WBC (test code = 0256800751) See_Comment [Automated abcdexperts ssage] The system which generated this result transmitted reference range: 0.0 - 10.0 /100 WBCs. The reference range was not used to interpret this result as normal/abnormal. NRBC x10^3 (test code = 8094917707) <0.01 See_Comment [Automated messa ge] The system which generated this result transmitted reference range: 10*3/?L. The reference range was not used to interpret this result as normal/abnormal. GRAN MAT (NEUT) % (test code = 770-8) 38.8 % IMM GRAN % (test code = 9334235748) 0.40 % LYMPH % (test code = 736-9) 47.7 % MONO % (test code = 5905-5) 9.4 % EOS % (test code = 713-8) 3.3 % BASO % (test code = 706-2) 0.4 % GRAN MAT x10^3(ANC) (test code = 2741559777) 1.78 10*3/uL 1.99-6.95 L IMM GRAN x10^3 (test code = 6815534440) <0.03 0-0.06 LYMPH x10^3 (test code = 731-0) 2.19 10*3/uL 1.09-3.23 MONO x10^3 (test code = 742-7) 0.43 10*3/uL 0.36-1.02 EOS x10^3 (test code = 711-2) 0.15 10*3/uL 0.06-0.53 BASO x10^3 (test code = 704-7) <0.03 0.01-0.09 Lab Interpretation (test code = 07268-8) [facility] [facility] 14:11:00* Test Item Value Reference Range Interpretation Comme nts APPEARANCE (test code = 7185491140) Clear Clear COLOR (test code = 0132987352) Yellow Yellow PH (test code = 5390087453) 4.8-8.0 SP GRAVITY (test code = 5610019251) 1.003-1.030 GLU U QUAL (test code = 2494393850) Normal Normal BLOOD (test code = 5565657312) Negative Negative KETONES (test code = 2005937880) Negative Negative PROTEIN (test code = 2887-8) Negative Negative UROBILIN (test code = 5708607009) Normal Normal BILIRUBIN (test code = 6987658386) Negative Negative NITRITE (test code = 6170319366) Negative Negative LEUK BING (test code = 1158138146) Negative Negative RBC/HPF (test code = 9184522817) See_Comment [Automated [employer] ge] The system which generated this result transmitted reference range: 0 - 3 HPF. The reference range was not used to interpret this result as normal/abnormal. WBC/HPF (test code = 4736657472) See_Comment [Automated [employer]] The system which generated this result transmitted reference range: 0 - 5 HPF. The reference range was not used to interpret this result as normal/abnormal. BACTERIA (test code = 9720175711) Negative Negative MUCOUS (test code = 4873156557) Slight Negative LPF A Lab Interpretation (test code = 52132-2) [facility]normal [facility] [id number] 14:04:00* Test Item Value Reference Range Interpretation Comme nts CK (test code = 0254921201) 185 U/L 33-194 Lab Interpretation (test cod e = 94471-8) Normal [facility]URIC [id number] 14:04:00* Test Item Value Reference Range Interpretation Comme [facility] URIC ACID (test code = 6456680701) 8.9 mg/dL 3.6-8 H Lab Interpretation (test cod e = 45200-5) Abnormal [facility] HospitalCREAT[facility]INE, URINE [id number] 14:00:00* Test Item Value Reference Range Interpretation Comme nts CREAT U (test code = 1711344381) 158.4 mg/dL [facility] HospitalTOTAL PROTEIN, URINE [id number] 14:00:00 * Test Item Value Reference Range Interpretation Comme nts T. PROT U (test code = 2888-6) 22 mg/dL [facility] HospitalTroponin [id number] 12:49:00* Test Item Value Reference Range Interpretation Comme nts TROPONIN I (test code = 2144962323) 0.078 ng/mL See_Comment H [Automated message] The [...] biotin. ? Lab Interpretation (test code = 41333-4) Abnormal [facility] Panel (NA, K, CL, CO2, GLUCOSE, BUN, CREATININE, CA)2019-09-05 12:38:00* Test Item Value Reference Range Interpretation Comme nts NA (test code = 8592971259) 135 mmol/L 135-145 K (test code = 1021690680) 3.7 mmol/L 3.5-5 CL (test code = 1959437493) 106 mmol/L 98-108 CO2 TOTAL (test code = 4302995321) 25 mmol/L 23-31 AGAP (test code = 2506742668) 2-16 BUN (test code = 1361343213) 29 mg/dL 7-23 H GLUCOSE (test code = 8010815626) 89 mg/dL 70-110 CREATININE (test code = 7740298213) 2.10 mg/dL 0.6-1.25 H CALCIUM (test code = 8140805535) 8.7 mg/dL 8.6-10.6 eGFR Calculation (Non-) (test code = 1782692182) mL/min/1.73m2 eGFR Calculation () (test code = 8315125552) mL/min/1.73m2 VLAD (test code = VLAD) Association [...] imaging tests). Lab Interpretation (test code = 80486-8) Abnormal [facility] HospitalaPTT2020-07-24 12:17:00* Test Item Value Reference Range Interpretation Comme [facility] APTT Patient (test code = 3173-2) See_Comment H [Automated message] The system which generated this result transmitted reference range: 23 - 38 Seconds. The reference range was not used to interpret this result as normal/abnormal. VLAD (test code = VLAD) The [facility] patient population mean normal value for aPTT is 30 seconds. Lab Interpretation (test code = 10113-0) Abnormal [facility]2020-07-24 05:50:00* Test Item Value Reference Range Interpretation Comme [facility] APTT Patient (test code = 3173-2) See_Comment [Automated message] The system which generated this result transmitted reference range: 23 - 38 Seconds. The reference range was not used to interpret this result as normal/abnormal. VLAD (test code = VLAD) The [facility] patient population mean normal value for aPTT is 30 seconds. Lab Interpretation (test code = 04106-3) Normal [facility] HospitalTroponin [id number] 05:10:00* Test Item Value Reference Range Interpretation Comme [facility] TROPONIN I (test code = 8203788328) 0.073 ng/mL See_Comment H [Automated message] The [...] biotin. ? Lab Interpretation (test code = 68114-8) Abnormal [facility] HospitalThyroid Stimulating Hormone (TSH)2019-09-05 00:14:00* Test Item Value Reference Range Interpretation Comme nts TSH (test code = 5473715403) See_Comment Biotin has been reported to cause a negative bias, interpret results relative to patient's use of biotin. [Automated message] The system which generated this result transmitted reference range: 0.45 - 4.70 mIU/L. The reference range was not used to interpret this result as normal/abnormal. Lab Interpretation (test code = 62578-6) Normal [facility] HospitalCOVID-19 (ID NOW RAPID TESTING)2019-09-04 23:15:00* Test Item Value Reference Range Interpretation Comme nts SARS-CoV-2 Rapid ID NOW (test code = 08637-1) Positive Not Detected A VLAD (test code = VLAD) ID NOW COVID-19 As say is an isothermal nucleic acid amplification test intended for the qualitative detection of nucleic acid from SARS-CoV-2 viral RNA in nasopharyngeal (HORSE [employer]ACE [employer]) specimens. It is used under Emergency Use [...] clinically indicated. Lab Interpretation (test code = 69010-2) Abnormal [facility] HospitalCT ANGIOGRAM [id number] 21:39:59HISTORY: Aortic disease TECHNIQUE: Initially noncontrast enhanced [...] output for next 24 to 48 hours. [facility], Radiant Results Inft User - 09/04/2019 4:41 [...] for next 24 to 48 hours.[facility] HospitalCT HEAD WO [id number] 21:21:10No acute intracranial hemorrhage or mass effect. [...] study and agree with theabove report.[facility] HospitalURINALYSIS2020-07-23 20:40:00 * Test Item Value Reference Range Interpretation Comme nts APPEARANCE (test code = 6136061217) Clear Clear COLOR (test code = 8880465122) Yellow Yellow PH (test code = 8840255595) 4.8-8.0 SP GRAVITY (test code = 0440517848) 1.003-1.030 GLU U QUAL (test code = 4034920158) 50 mg/dL Normal A BLOOD (test code = 3018718231) 2+ Negative A KETONES (test code = 2156200099) Negative Negative PROTEIN (test code = 2887-8) 100 mg/dL Negative A UROBILIN (test code = 9840870388) 2.0 mg/dL Normal A BILIRUBIN (test code = 1073638263) Negative Negative NITRITE (test code = 9930500346) Negative Negative LEUK BING (test code = 2695333284) Negative Negative RBC/HPF (test code = 3571026303) See_Comment H [Automated messa ge] The system which generated this result transmitted reference range: 0 - 3 HPF. The reference range was not used to interpret this result as normal/abnormal. WBC/HPF (test code = 0809603078) See_Comment [Automated messa ge] The system which generated this result transmitted reference range: 0 - 5 HPF. The reference range was not used to interpret this result as normal/abnormal. BACTERIA (test code = 1128485812) Negative Negative MUCOUS (test code = 0875960169) Slight Negative LPF A SQ EPITH (test code = 6666456260) HPF HYAL CAST (test code = 5865941315) See_Comment [Automated messa ge] The system which generated this result transmitted reference range: <=2 LPF. The reference range was not used to interpret this result as normal/abnormal. Lab Interpretation (test code = 00148-5) Abnormal [facility] HospitalGLYCOSYLATED HEMOGLOBIN (A1C)2019-09-04 20:32:00* Test Item Value Reference Range Interpretation Comme nts HGB A1C (test code = 4548-4) 5.9 % 4-6 VLAD (test code = VLAD) %A1C (NGSP) Interpretation (ADA)4.8-5.6 ? ? Normal or (Non-Diabetic Range)5.7-6.4 ? ? Increased Risk (Pre-Diabetic)>6.5 ?Diabetes Indicated Lab Interpretation (test code = 90699-3) Normal [facility] HospitalADC / L[facility] - DRUG SCREEN [id number] 20:27:00* Test Item Value Reference Range Interpretation Comme nts BENZO U (test code = 7011449522) Negative Negative NICOLASA U (test code = 9090754770) Negative Negative AMPHET (test code = 3327511123) Negative Negative THC (test code = 5466947750) Negative Negative METHADONE (test code = 7670489883) Negative Negative Meth U (test code = 9098067041) Negative Negative OPIATES (test code = 5245926159) Negative Negative Cocaine Metabolite (test code = 2561102180) Presumptive Positive Negative A PROPOXY (test code = 9754500304) Negative Negative Tric U (test code = 1020603827) Negative Negative PCP (test code = 8986708959) Negative Negative OXYCOD (test code = 1552184722) Negative Negative VLAD (test code = VLAD) [...] legal testing). Lab Interpretation (test code = 45959-4) Abnormal [facility] HospitalTONYTIDELAND[facility]ITALNOEL [id number] 20:10:00* Test Item Value Reference Range Interpretation Comme nts TROPONIN I (test code = 7214582445) 0.076 ng/mL See_Comment H [Automated message] The [...] biotin. ? Lab Interpretation (test code = 73205-1) Abnormal [facility] HospitalLIPID PANEL (08898)(TOTAL CHOLESTEROL, TRIGLYCERIDES, HDL)2019-09-04 20:00:00* Test Item Value Reference Range Interpretation Comme nts CHOL (test code = 9887053022) 167 mg/dL 120-200 HDL (test code = 8500501666) 48 mg/dL >40 HDLC RATIO (test code = 2222473433) See_Comment [Gem[employer]o] The system which generated this result transmitted reference range: <=5.0. The reference range was not used to interpret this result as normal/abnormal. TRIG (test code = 8659342017) 140 mg/dL 30-170 LDL CHOL (test code = 08783-1) 91 mg/dL See_Comment [[employer]] The system which generated this result transmitted reference range: <=160. The reference range was not used to interpret this result as normal/abnormal. VLDL (test code = 7141214088) 28 mg/dL 5-60 Lab Interpretation (test code = 36421-0) Normal [facility] HospitalCOMP. METABOLIC PANEL (32538)2019-09-04 19:59:00* Test Item Value Reference Range Interpretation Comme nts NA (test code = 0473508241) 140 mmol/L 135-145 K (test code = 4148479840) 3.6 mmol/L 3.5-5 CL (test code = 8889726767) 105 mmol/L 98-108 CO2 TOTAL (test code = 9293930601) 26 mmol/L 23-31 AGAP (test code = 9838951201) 2-16 BUN (test code = 2258950855) 31 mg/dL 7-23 H GLUCOSE (test code = 3905180852) 137 mg/dL 70-110 H CREATININE (test code = 9079250146) 2.47 mg/dL 0.6-1.25 H TOTAL BILI (test code = 5955933190) 0.6 mg/dL 0.1-1.1 CALCIUM (test code = 4039091361) 9.4 mg/dL 8.6-10.6 T PROTEIN (test code = 4189941447) 7.7 g/dL 6.3-8.2 ALBUMIN (test code = 1406121124) 4.1 g/dL 3.5-5 ALK PHOS (test code = 1708931982) 77 U/L 34-122 ALTv (test code = 1742-6) 17 U/L 5-50 AST(SGOT) (test code = 6611949538) 28 U/L 13-40 eGFR Calculation (Non-) (test code = 7805450834) mL/min/1.73m2 eGFR Calculation () (test code = 0036224821) mL/min/1.73m2 VLAD (test code = VLAD) Association [...] imaging tests). Lab Interpretation (test code = 85552-8) Abnormal [facility] WITH [id number] 19:44:00* Test Item Value Reference Range Interpretation Comme nts WBC (test code = 6690-2) See_Comment [Automated [employer] ge] The system which generated this result transmitted reference range: 4.20 - 10.70 10*3/?L. The reference range was not used to interpret this result as normal/abnormal. RBC (test code = 789-8) See_Comment [Automated [employer] ge] The system which generated this result [...] 32.7 g/dL 31.2-35 RDW-SD (test code = 94529-0) 42.6 fL 38.5-51.6 RDW-CV (test code = 788-0) 13.5 % 12.1-15.4 PLT (test code = 777-3) See_Comment [Automated [employer] ge] The system which generated this result transmitted reference range: 150 - 328 10*3/?L. The reference range was not used to interpret this result as normal/abnormal. MPV (test code = 22339-8) 10.8 fL 9.8-13 NRBC/100 WBC (test code = 6439401850) See_Comment [Automated abcdexperts ssage] The system which generated this result transmitted reference range: 0.0 - 10.0 /100 WBCs. The reference range was not used to interpret this result as normal/abnormal. NRBC x10^3 (test code = 8168496836) <0.01 See_Comment [Automated me ssage] The system which generated this result transmitted reference range: 10*3/?L. The reference range was not used to interpret this result as normal/abnormal. GRAN MAT (NEUT) % (test code = 770-8) 52.7 % IMM GRAN % (test code = 1626351527) 0.40 % LYMPH % (test code = 736-9) 32.6 % MONO % (test code = 5905-5) 10.4 % EOS % (test code = 713-8) 3.3 % BASO % (test code = 706-2) 0.6 % GRAN MAT x10^3(ANC) (test code = 4105368089) 2.70 10*3/uL 1.99-6.95 IMM GRAN x10^3 (test code = 1601065326) <0.03 0-0.06 LYMPH x10^3 (test code = 731-0) 1.67 10*3/uL 1.09-3.23 MONO x10^3 (test code = 742-7) 0.53 10*3/uL 0.36-1.02 EOS x10^3 (test code = 711-2) 0.17 10*3/uL 0.06-0.53 BASO x10^3 (test code = 704-7) 0.03 10*3/uL 0.01-0.09 [facility] Consult Notes Date/Time Note Provider Source 2022-10-24 16:56:44 Associated Order(s): CONSULT CARDIOLOGY [facility] Cardiology Consult Note Patient: Zander Melvin Date [...] stage 2, GFR 60-89 ml/min HTN (hypertension) NJ (myocardial infarction) Other hyperlipidemia S/P arterial stent Past Surgical History: Procedure Laterality Date DEBRIDEMENT LOWER EXTREMITY (SHX) Left 07/15/2022 Surgeon: Chela Treviño MD; [place] [facility] [place] Family History Problem Relation Age of Onset [...] chronic kidney disease Coronary artery disease involving qagan tayagungin coronary artery of qagan tayagungin heart without angina pectoris PAD (peripheral artery [...] disease noted. 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 Continue ASA 81 daily. Denies history of any chest pain or any worsening shortness of breath. No indications for ACS. Recommended serial troponins x2. Continue telemetry monitoring. Recent Labs 10/24/22 1022 TROPNI 0.057* Acute on CKD 3: The setting of underlying uncontrolled hypertension. Recommended nephrology evaluation. Strongly recommended to establish care with nephrology team due to worsening creatinine. H/o NJ/questionable CAD: Consider ASA and statins. Continue with [...] feel free to call our office at [phone]. I would be happy to be of further assistance for Zander Melvin wellbeing. Voice recognition software has been used to create portions of this document. An attempt to proofread has been made to minimize errors. Please do not hesitate to call with any questions. Binu Lopez MD Parts Assembler, Division of Cardiology [facility] - Health History and Physical Notes Date/Time [...] stage 2, GFR 60-89 ml/min HTN (hypertension) NJ (myocardial infarction) Other hyperlipidemia S/P arterial stent Past Surgical History: Procedure Laterality Date ARTERIOVENOUS FISTULA CREATION Left 08/28/2023 Surgeon: Real Robert MD; Location: [facility] OR LOCATION DEBRIDEMENT LOWER EXTREMITY (SHX) Left 07/15/2022 Surgeon: Chela Treviño MD; Location: [facility] OR LOCATION Medications: Home Medications: Current [...] fistulogram with possible intervention. Will schedule in [place]. [facility] 2023-08-28 08:06:37 VASCULAR SURGERY - H&P NOTE Date of Admission: 08/28/2023 Date of Service: 08/28/2023 CC: ESRD, intermediate designer dialysis access HPI [place] Melvin is a 62 year old male patient with PMHx of HTN, previous stroke with no residual deficits, ESRD secondary to HTN on HD through [facility] permacat tue/thur/sat. No issues with current access. [...] stage 2, GFR 60-89 ml/min HTN (hypertension) NJ (myocardial infarction) Other hyperlipidemia S/P arterial stent PAST SURGICAL HISTORY Past Surgical History: Procedure Laterality Date DEBRIDEMENT LOWER EXTREMITY (SHX) Left 07/15/2022 Surgeon: Chela Treviño MD; Location: [facility] OR [facility] MEDICATIONS No current facility-administered medications on file [...] Please page service pager Service Pager #: [phone] Associated attestation - Real Robert MD - 08/28/2023 8:36 AM CDT I personally examined the patient on 08/28/2023 and agree with Fab Dubois MD resident note as written . I actively participated in the decision-making process. Please see the resident's note for additional details. Real Robert MD, RPVI, FSVS Vascular Surgery PGY18 [facility]-SURGERY [facility] 2022-10-24 20:27:09 Formatting of this n [...] should follow-up with an ENT or a in service education teacher. This needs to be removed and pathology needs to be completed. Patient lives in [place], [place]. ENT available in the local area he should follow-up as soon as possible. PAST MEDICAL HISTORY Past Medical History: Diagnosis Date CAD (coronary artery disease) CKD (chronic kidney disease) stage 2, GFR 60-89 ml/min HTN (hypertension) NJ (myocardial infarction) Other hyperlipidemia S/P arterial stent PAST SURGICAL HISTORY Past Surgical History: Procedure Laterality Date DEBRIDEMENT LOWER EXTREMITY (SHX) Left 07/15/2022 Surgeon: Chela Treviño MD; [place] [facility] ALLERGIES No Known Allergies MEDICATIONS Current home [...] Tobacco user?: NO Patient will require observation [place] [employer]IA MARKETING MANAGER was verified during stay Mauro Spears MD IM-INTERNAL MEDICINE STAFF [facility] Notes Date/Time Note Provider Source 2023-11-29 [...] micro sheath was exchanged for a 5 Pakistani sheath over an 035 Glidewire. An 018 advantage wire was advanced distally in the fistula. The areas of stenosis were then treated with a 6 x 60 angioplasty balloon. There were focal areas within the fistula that were resistant to angioplasty even with high pressure. The sheath was exchanged to a 6 Pakistani sheath and the areas of resistant stenosis [...] placed at the access site in a gowovo-pc-nbskp fashion and the sheath was pulled pressure [...] balloons to treat remaining areas of stenosis. [facility] 2023-11-29 08:16:00 BRIEF OPERATIVE NOTE Date of [...] ANGIOGRAM VIA UPPER EXTREMITY ACCESS (Left) CPT: 03739 Any Complications Encounters: None Estimated Blood Loss: [...] detail. Gerri Gonzalez DO General Surgery PGY-4 [facility] 2023-11-19 15:36:59 Images from the original note were not included. Your procedure is at [facility] on 11/29/23. The address is [address] [place] [address], [id number]. [facility] nursing staff will call you the workday [...] voiced no further questions at this time. [facility] 2023-11-06 09:20:10 Images from the original note were not included. ЕЛЕНА note faxed to number provided Renata Red RN [facility] 2023-11-06 09:13:48 Zander Melvin is a 62 year old male [facility] with [facility] is requesting a letter of clearance to cannulate Please advise fax: [phone] call: [phone] Zaida Mariscal [facility] 2023-11-05 09:09:48 Access Center: [facility] Open Encounter Maintenance This is being sent to you as part of [employer] Chart Maintenance. The encounter has been open longer than 72 hours and has no documentation attached. Encounter closed. Tiana Hamilton RN [facility] 2023-10-25 14:32:32 Zander Melvin is a 62 year old male [facility] calling to speak with nurse or HORSE RACE TIMER Moustapha to discuss patients access sites. [phone] Rita Freddie Karin Mccormack [facility] 2023-10-11 13:00:00 Addended by: REAL ROBERT MD on: 10/15/2023 10:13 AM Modules accepted: Level of Service CLARKE-VASCULAR SURGERY STAFF [facility] 2023-08-28 09:42:54 BRIEF OPERATIVE NOTE Date [...] (LRB): ARTERIOVENOUS FISTULA CREATION (Left) Radiobasilic CPT: 79602, 83248, 08634, Any Complications Encounters: None Estimated Blood Loss: [...] detail. Luca Holley MD General Surgery PGY-4 [facility] 2023-08-28 07:43:00 Spoke with Maria Del Rosario from blood bank. Type and screen bracelet to the left wrist confirmed and verified. Nuria Najera RN [facility] 2023-08-27 15:30:00 Summary: BLOOD BANK PROCESS HAS BEGUN. sPECIMEN SENT TO BB Images from the original note were not included. Venipuncture collection performed by clean technique on the left anticubitus. Total of 1 attempts were made. Slight pressure and a bandage/dressing were applied to the site(s). The patient experienced no complications. The following specimens were processed according to instructions and sent to [facility] laboratories per lab order on 08/27/2023 : LT BLUE SST RED LAV 1 PPT DK GREEN (LiHep) DK GREEN (SodH) LAST DK BLUE (K2) DK BLUE (S) ACD Blood Culture NIPT/NTD [facility] 2023-03-10 19:00:00 Pt dc'd home ambulatory. Pt v/u of dc instructions. N Junior RN [facility] 2023-03-10 15:46:14 Sister states: " He was getting dialysis at [facility]. He had dialysis on . He doesn't have insurance. He has to go through the ER. We are applying for the medicare to be complete" N James RN [facility] 2023-03-10 15:41:00 EMERGENCY DEPARTMENT ENCOUNTER [facility] Patient Name: Zander Melvin Date of : 1960 62 year old Exam Room:[facility] Primary Care Physician: PATIENT DOES NOT HAVE [...] states: " He was getting dialysis at [facility]. He had dialysis on . He [...] stage 2, GFR 60-89 ml/min HTN (hypertension) NJ (myocardial infarction) Other hyperlipidemia S/P arterial stent Tetanus received in last 5 years: Yes Childhood immunizations: Up-to-date Past Surgical History Past Surgical History: Procedure Laterality Date DEBRIDEMENT LOWER EXTREMITY (SHX) Left 07/15/2022 Surgeon: Chela Treviño MD; [place] [facility] Allergies No Known Allergies Social History Tobacco [...] 0.01 - 0.09 10*3/uL COMP. METABOLIC PANEL (71453) - Abnormal NA 140 135 - 145 [...] VW CBC WITH DIFF COMP. 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 [...] on file Rasheeda Riojas Jr., MD Clinical Parts Assembler [facility] Emergency Department [employer] Dictation Software is used frequently and may produce errors. Promptly contact for obvious discrepancies. Rasheeda Riojas MD 03/10/232037 T ATTENDANT [facility] 2022-10-30 14:35:31 Formatting of this n [...] up with Dr Taylor in 3-4 weeks. [facility] 2022-10-27 18:34:22 Formatting of this n [...] Outcome: Adequate for discharge Delores Parsons RN [facility] 2022-10-27 14:35:18 Formatting of this n [...] Outcome: Progressing as expected Fiordaliza Okeefe RN [facility] 2022-10-27 06:44:54 Formatting of this n [...] Outcome: Progressing as expected Teresita Carrasquillo RN [facility] 2022-10-26 19:11:55 Formatting of this n [...] Outcome: Progressing as expected Ayesha Oh RN [facility] 2022-10-26 01:15:33 Formatting of this n [...] Effective communication Outcome: Progressing as expected Shayla Royla RN [facility] 2022-10-25 02:00:19 Formatting of this n [...] Effective communication Outcome: Progressing as expected T [facility] 2022-10-24 18:42:16 Formatting of this n [...] Outcome: Progressing as expected Zaina Osorio RN [facility] 2022-10-24 13:05:15 Formatting of this n ote might be different from the original. Nurse Report Report given to VALERIA Hodge. Chief complaint, assessment findings, and orders reviewed. Plan of care discussed with both nurses. Patient verbalized understanding for admission. Jessica Weaver RN Jessica Weaver RN [facility] 2022-10-24 12:49:11 Formatting of this n [...] in ED. Belongings with patient to unit. [facility] 2022-10-24 09:29:58 Formatting of this n ote might be different from the original. Noticed growth on face two weeks ago. Thought it was a hair bump but now its hanging off his face. Also needs medications refilled. Has been out of BP meds for over a month. Gabriella Adan RN [facility] 2022-10-24 09:21:00 Associated Order(s): EKG-12 Lead ROUTINE ONCE Pre-Procedure Diagnose(s): Hypertensive urgency Post-Procedure Diagnose(s): Hypertensive urgency Images from the original note were not included. [facility] Emergency Department Note Patient Name: Zander Melvin Date of : 1960 61 year old male Treatment Room: [place] [address] Primary Care Physician: PATIENT DOES NOT HAVE [...] vomiting or diarrhea. History provided by: Patient supervisor mixing used: No Past Medical History/Immunizations: Past Medical History: Diagnosis Date CAD (coronary artery disease) CKD (chronic kidney disease) stage 2, GFR 60-89 ml/min HTN (hypertension) NJ (myocardial infarction) Other hyperlipidemia S/P arterial stent Allergies: No Known Allergies Past Social History: Tobacco Use Some Days; 0.25 packs/day; Types: Cigarettes Passive Exposure: Past Smokeless Tobacco: Never used smokeless tobacco. Alcohol Use Not Currently. Past Surgical History: Past Surgical History: Procedure Laterality Date DEBRIDEMENT LOWER EXTREMITY (SHX) Left 07/15/2022 Surgeon: Chela Treviño MD; [place] [facility] [place] Review of Systems: Review of Systems Constitutional: [...] Procedures CBC WITH DIFF COMP. METABOLIC PANEL (96145) TROPONIN I No orders of the defined [...] ED Physician in the absence of a senior health educator: yes Previous ECG: Previous ECG: Compared to [...] patient. Patient seen and evaluated by CHARLA. [facility]
--- NOTE | 2024-01-12 13:46 | RAD REPORT ---
EXAM: Chest Single View HISTORY: DYSPNEA COMPARISON: 01/03/2024 FINDINGS: LUNGS/PLEURA: Diffuse hazy bilateral airspace disease. MEDIASTINUM: The mediastinal silhouette is within normal limits. CARDIAC: Cardiomegaly. UPPER ABDOMEN: No significant abnormality. BONES: No acute fracture. LINES/TUBES/OTHER: N/A IMPRESSION: Pulmonary edema.
[2024-01-12 14:09] LABS: Absolute Basophils 0.1 K/uL (0-0.5); Absolute Eosinophils 0.2 K/uL (0-0.5); Absolute Lymphocytes (CBC) 1.4 K/uL (0.7-4.9); Absolute Monocytes 0.4 K/uL (0.1-1.3); Absolute Neutrophil 3.4 K/uL (1.8-8.0); Eosinophils % 3.6 % (0-4.4); Hemoglobin 10.1 g/dL (13.6-17.9); Lymphocytes % 25.2 % (15.3-44.8); MCH 28.7 pg (27.0-35.0); MCHC 31.7 g/dL (32.0-36.0); MCV 90.6 fL (80-100); MPV 7.4 fL (7.6-11.3); Monocytes % 7.1 % (3.3-12.3); Neutrophils % 63.1 % (41.7-73.7); Platelets 308 thou/uL (152-406); RBC Red Blood Cell Count 3.53 M/uL (4.33-5.43); Red Cell Distribution Width 14.8 % (12.1-15.2)
[2024-01-12 14:31] LABS: Anion Gap 14.5 mEq/L (5.0-15.0); Potassium 5.5 mEq/L (3.5-5.1)
--- NOTE | 2024-01-12 17:28 | RAD REPORT ---
STUDY: Upper Ext Artery Uni Bil01/12/2024 4:18 PM CLINICAL HISTORY: no thrill TECHNIQUE: A limited ultrasound of the patient's left upper extremity fistula was performed. Spectral analysis of the Doppler waveform was performed. COMPARISON: None. FINDINGS: Limited ultrasound to evaluate for patency if the patient's fistula. The basilic vein/fistula is expa nded and occluded with thrombus. The outflow vein has some trickle flow. IMPRESSION: Occluded/thrombosed left upper extremity fistula.
--- NOTE | 2024-01-12 17:43 | EDPHYS ---
Physician Documentation [facility] Name: Zander Melvin Age: 63 yrs Sex: Male : 1960 Arrival Date: 01/12/2024 Time: 12:38 Bed 19 Private MD: ED Physician Triston Murphy HPI: 01/11 12:50 This 63 yrs old Black Male presents to ER via Unassigned with complaints of Dialysis. kb 12:50 Pt is a 63 year old male who presents for dialysis. States he went to dialysis this kb morning and they told him his dialysis access wasn't working so he needed to come to the ER. Last dialyzed 4 days ago. States his last dialysis was done here by [facility]. States he was able to use his access in left arm. . Historical: - Allergies: 13:32 No Known Allergies; ss - PMHx: 13:32 dialysis TTS; End stage renal disease; Hypertensive disorder; ss - PSHx: 13:32 I\T\D facial abscess; ss - Immunization history:: Client reports receiving the 2nd dose of the Covid vaccine. - Infectious Disease History:: Denies. - Social history:: Smoking status: Patient denies any tobacco usage or history of. ROS: 12:54 Constitutional: As per HPI kb Exam: 12:54 Constitutional: This is a well developed, well nourished patient who is awake, alert, kb and in no acute distress. Head/Face: Normocephalic, atraumatic. ENT: Moist Mucous membranes Cardiovascular: Regular rate Respiratory: Respirations even and unlabored. No increased work of breathing. Talking in full sentences Skin: Warm, dry with normal turgor. Normal color. MS/ Extremity: Pulses equal, no cyanosis. Neurovascular intact. Full, normal range of motion. Neuro: Awake and alert, GCS 15, oriented to person, place, time, and situation. Vital Signs: 13:31 Weight 106.59 kg; Height 5 ft. 11 in. ; Pain 0/10; ss 13:33 Pulse 59; Pulse Ox 100% on R/A; ss 13:35 BP 129 / 90; Temp 98.1(TE); ss 18:00 BP 171 / 92; Pulse 75; Resp 16; Pulse Ox 100% on R/A; db 19:57 BP 178 / 84; Pulse 76; Resp 20; Pulse Ox 98% on R/A; kj2 13:31 Body Mass Index 32.78 (106.59 kg, 180.34 cm) ss 13:31 Pain Scale: Adult ss MDM: 12:49 Medical Screening Exam initiated kb 12:54 Data reviewed: vital signs, nurses notes. kb 17:40 Consideration of Admission/Observation Escalation of care including kb admission/observation considered. pt will be transferred to facility with vascular lab. Management of patient was discussed with the following: Vocational Education Teacher: Shipping And Receiving Material Handler connie cleaner recommends transfer to facility with vascular lab. Counseling: I had a detailed discussion with the patient and/or guardian regarding the historical points, exam findings, and any diagnostic results supporting the discharge/admit diagnosis, lab results, radiology results, the need to transfer to another facility, [facility] does not immediately have the required specialist. 18:02 Differential diagnosis: abnormal electrolytes, volume overload. Management of patient kb was discussed with the following: Dr Mena, hospitalist at [facility], accepts pt for transfer. Transfer center stated that vascular accepted for consult without conference. . 01/11 12:56 Order name: CBC with Diff; Complete Time: 14:22 kb 01/11 12:56 Order name: BMP; Complete Time: 14:32 kb 01/11 12:56 Order name: Chest Single View XRAY; Complete Time: 13:47 kb 01/11 16:00 Order name: Upper Ext Artery Uni Akash; Complete Time: 17:29 EDMS 01/11 12:56 Order name: IV Start; Complete Time: 14:04 kb Administered Medications: 17:58 Drug: Albuterol Inhalation 2.5 mg Inhalation once Route: Inhalation; db 18:00 Drug: Kayexalate PO 45 grams PO once Route: PO; db 20:01 Follow up: Response: No adverse reaction kj2 19:35 Drug: Insulin Regular Human IVP 5 units IVP once {Co-Signature: dd2 (VISHNU OWEN RN).} db Route: IVP; Site: right forearm; 20:00 Follow up: Response: No adverse reaction kj2 19:37 Drug: D50W IVP 50 ml IVP once; (1 amp) Route: IVP; Site: right forearm; db 20:00 Follow up: Response: No adverse reaction kj2 Disposition Summary: 01/12/24 17:43 Transfer Ordered Notes: Transfer Location: [facility] kb Reason: Higher level of care kb Condition: Stable kb Problem: new kb Symptoms: are unchanged kb Accepting Physician: Dr Mena(01/12/24 20:04) kj2 Diagnosis - Occluded Fistula - left upper extremity kb - Hyperkalemia kb Forms: - Medication Reconciliation Form kb - SBAR form kb Signatures: Dispatcher [employer] EDMS Diana Loja FNP-Harmony LAM-Blossom Loza, RN RN ss Kallie Dobbs, RN RN db Ros Fowler, RN RN kj2 VISHNU OWEN RN dd2 Corrections: (The following items were deleted from the chart) 12:56 12:56 Chest Single View+RAD.RAD.BRZ ordered. EDMS EDMS 16:00 15:18 Lower Extremity Artery Uni Ltd+US.RAD.BRZ ordered. EDMS EDMS 18:03 17:43 Dr sosa swan 20:04 18:03 Dr Mena kb kj2
--- NOTE | 2024-01-12 17:43 | ER ---
Nurse's Notes [facility] Name: Zander Melvin Age: 63 yrs Sex: Male : 1960 Arrival Date: 01/12/2024 Time: 12:38 Bed 19 Private MD: Diagnosis: Occluded Fistula - left upper extremity;Hyperkalemia Presentation: 01/11 13:31 Chief complaint: Patient states: "Dialysis sent me over because they said my fistula is ss closed.". Coronavirus screen: Client denies travel out of the [place] in the last 14 days. Ebola Screen: Patient denies exposure to infectious person. Patient denies travel to an Ebola-affected area in the 21 days before illness onset. Initial Sepsis Screen: Does the patient meet any 2 criteria? No. Patient's initial sepsis screen is negative. Does the patient have a suspected source of infection? No. Patient's initial sepsis screen is negative. Risk Assessment: Do you want to hurt yourself or someone else? Patient reports no desire to harm self or others. Onset of symptoms is unknown. 13:31 Method Of Arrival: Ambulatory ss 13:31 Acuity: JAMES 3 ss Historical: - Allergies: 13:32 No Known Allergies; ss - PMHx: 13:32 dialysis TTS; End stage renal disease; Hypertensive disorder; ss - PSHx: 13:32 I\\T\\D facial abscess; ss - Immunization history:: Client reports receiving the 2nd dose of the Covid vaccine. - Infectious Disease History:: Denies. - Social history:: Smoking status: Patient denies any tobacco usage or history of. Screenin:28 [facility] ED Fall Risk Assessment (Adult) History of falling in the last 3 months, db including since admission No falls in past 3 months (0 pts) Confusion or Disorientation No (0 pts) Intoxicated or Sedated No (0 pts) Impaired Gait No (0 pts) Mobility Assist Device Used No (0 pt) Altered Elimination No (0 pt) Score/Fall Risk Level 0 - 2 = Low Risk Oriented to surroundings, Maintained a safe environment. Abuse screen: Denies threats or abuse. Denies injuries from another. Nutritional screening: No deficits noted. Tuberculosis screening: No symptoms or risk factors identified. Assessment: 16:03 Reassessment: CARLOTA LULA SISTER [phone]. CALL SISTER FOR UPDATES AND CHANGES. [facility] 17:00 Reassessment: Patient appears in no apparent distress at this time. Patient and/or db family updated on plan of care and expected duration. Pain level reassessed. Patient is alert, oriented x 3, equal unlabored respirations, skin warm/dry/pink. 18:26 Reassessment: CALLED TO GIVE PATIENT REPORT TO [facility] ROOM 926. db 18:28 Reassessment: Patient appears in no apparent distress at this time. Patient and/or db family updated on plan of care and expected duration. Pain level reassessed. Patient is alert, oriented x 3, equal unlabored respirations, skin warm/dry/pink. General: Appears in no apparent distress. comfortable, Behavior is calm, cooperative. Pain: Denies pain. Neuro: Level of Consciousness is awake, alert, obeys commands, Oriented to person, place, time, situation. Respiratory: Airway is patent Respiratory effort is even, unlabored, Respiratory pattern is regular, symmetrical. 18:38 Reassessment: CALLED [facility] FOR 2ND CALL TRANSFERRED TO UNIT NO ANSWER. STAYED db ON HOLD FOR 12 MINUTES. CALL CENTER STATES WILL CALL MODULAR SET CREW MEMBER AND NOTIFY. 19:00 Reassessment: Patient appears in no apparent distress at this time. Patient and/or kj2 family updated on plan of care and expected duration. Pain level reassessed. Patient is alert, oriented x 3, equal unlabored respirations, skin warm/dry/pink. 19:04 Reassessment: CALLED [facility] #9 GOING TO #926, TO GIVE PATIENT REPORT NURSE IS TAKING db PATIENT REPORT AND STATES WILL CALL BACK LATER TO RECEIVE REPORT. 19:15 Reassessment: NOTIFIED CHARGE NURSE OF ATTEMPT TO CALL X 3. db 19:26 Reassessment: NURSE AT BEDSIDE FOR ULTRASOUND IV. db 19:40 Reassessment: REPORT GIVEN TO VALERIA DEUTSCH AT [facility] 926. db 19:57 Reassessment: Patient appears in no apparent distress at this time. Patient and/or kj2 family updated on plan of care and expected duration. Pain level reassessed. Patient is alert, oriented x 3, equal unlabored respirations, skin warm/dry/pink. 20:01 Reassessment: [place] ARRIVED TO TRANSPORT PATIENT. [facility] Vital Signs: 13:31 Weight 106.59 kg; Height 5 ft. 11 in. ; Pain 0/10; ss 13:33 Pulse 59; Pulse Ox 100% on R/A; ss 13:35 BP 129 / 90; Temp 98.1(TE); ss 18:00 BP 171 / 92; Pulse 75; Resp 16; Pulse Ox 100% on R/A; db 19:57 BP 178 / 84; Pulse 76; Resp 20; Pulse Ox 98% on R/A; kj2 13:31 Body Mass Index 32.78 (106.59 kg, 180.34 cm) ss 13:31 Pain Scale: Adult ss ED Course: 12:40 Patient arrived in ED. im 12:49 Diana Loja FNP-C is PHCP. kb 12:49 Triston Murphy MD is Attending Physician. kb 13:32 Triage completed. ss 13:32 Arm band placed on left wrist. ss 13:44 Chest Single View XRAY In Process Unspecified. EDMS 14:04 CBC with Diff Sent. nh2 14:04 BMP Sent. nh2 14:04 Inserted saline lock: 20 gauge in right antecubital area, using aseptic technique. nh2 Blood collected. Flushed with 10 mL NS. 14:58 Valery Dobbs, RN is Primary Nurse. db 16:06 Patient taken to ultrasound. via wheelchair. db 16:50 Upper Ext Artery Uni Akash In Process Unspecified. EDMS 17:54 1742 called [facility] for transfer talked to Pop. sp 18:00 Missed attempt(s): 22 gauge in right antecubital area. Bleeding controlled, band aid db applied, catheter tip intact. 18:[address]Chau Mena accepted pt 1806 Pop Lundy admin approval report number sp [phone] fax number [phone] [facility] 926. 18:31 IV discontinued, intact, bleeding controlled, No redness/swelling at site. IV DC TO db LEFT ARM DUE TO PATIENT DIALYSIS ON LEFT ARM. 19:00 Patient has correct armband on for positive identification. Bed in low position. Call kj2 light in reach. Provided Education on: CALL LIGHT. Report received from Valery. 19:22 [place] called for transport spoke with RAE Chavarria 20 minutes. ty 19:25 Transfer center called to escalate nurse 2 nurse, spoke with Sandrine. ty 19:30 Accessed peripheral vein via ultrasound, utilizing dynamic ultrasound technique using db accessed w/ # 20 Burns needle, per hospital protocol. Clean \\T\\ dry. Dressing intact. Good blood return. PLACED BY VALERIA TRAMMELL. 19:34 call disconnected calling back [facility]. ty 19:36 Sandrine with [facility] stated has been escalated to electronic gaming device supervisor and is looking into it. ty 19:39 Nurse called for Nurse to Nurse. ty 19:59 No provider procedures requiring assistance completed. kj2 Administered Medications: 17:58 Drug: Albuterol Inhalation 2.5 mg Inhalation once Route: Inhalation; db 18:00 Drug: Kayexalate PO 45 grams PO once Route: PO; db 20:01 Follow up: Response: No adverse reaction kj2 19:35 Drug: Insulin Regular Human IVP 5 units IVP once {Co-Signature: dd2 (VISHNU OWEN RN).} db Route: IVP; Site: right forearm; 20:00 Follow up: Response: No adverse reaction kj2 19:37 Drug: D50W IVP 50 ml IVP once; (1 amp) Route: IVP; Site: right forearm; db 20:00 Follow up: Response: No adverse reaction kj2 Medication: 19:59 VIS not applicable for this client. kj2 Outcome: 17:43 ER care complete, transfer ordered by . kb 19:59 Transferred by ground EMS to [facility], [facility], kj2 19:59 Condition: stable 19:59 Instructed on the need for transfer, 20:04 Patient left the ED. kj2 Signatures: Dispatcher [employer] EDWA Diana Loja, M48 M60 ARMOR CREWMAN-C M48 M60 ARMOR CREWMAN-CkLiz Myles Shelby, VALERIA SHAW Valery Dobbs, RN RN db Carmela Madrigal Tawney, RN RN tm6 Kosta Muñoz Krystal, RN RN kj2 Charles Banerjee Jr, DIANA RN dd2 Corrections: (The following items were deleted from the chart) 19:07 19:04 Reassessment: CALLED [facility] #9 GOING TO #926, TO GIVE PATIENT REPORT db db
[2024-01-12] MEDS ORDERED: ALBUTEROL 2.5 MG/3 ML NEB SOL ONE (17:54)
[2024-01-12] MEDS ORDERED: SOD POLYSTYREN SUL 15 GM/60 ML UCUP ONE ×2 (17:54→17:55)
[2024-01-12] MEDS ORDERED: INSULIN REGULAR (HUMAN) 100 UNIT/ML ONE (17:55)
[2024-01-12] MEDS ORDERED: D50W 25 GM/50 ML SYRINGE IV ONE (17:55)
[2024-01-12 21:34] VITALS: TEMP 98.1
[2024-01-12 21:36] VITALS: BP 178/84; O2SAT 98
== END 2024-01-12 20:04 | disposition short-term general hospital (02) ==
LOC: ER 12:38
DX: T82.898A Other specified complication of vascular prosthetic devices, implants and grafts, initial encounter (principal); E87.5 Hyperkalemia; I12.0 Hypertensive chronic kidney disease with stage 5 chronic kidney disease or end stage renal disease; N18.6 End stage renal disease; Z99.2 Dependence on renal dialysis
CPT/HCPCS: 85025; 80048; 36415; 71045; 93931; 96375; 96374; 99285; J7613

== ENCOUNTER 2024-07-08 16:47 | Emergency (ER) | payer MEDICAID ==
[2024-07-08 17:35] LABS: Absolute Lymphocytes (CBC) 0.3 K/uL (0.7-4.9); Absolute Monocytes 0.5 K/uL (0.1-1.3); Absolute Neutrophil 3.6 K/uL (1.8-8.0); Basophils % 0.5 % (0-1.3); Eosinophils % 0.7 % (0-4.4); Hematocrit 32.2 % (39.6-49.0); Hemoglobin 10.9 g/dL (13.6-17.9); MCH 29.9 pg (27.0-35.0); MCHC 33.9 g/dL (32.0-36.0); MCV 88.2 fL (80-100); Monocytes % 11.7 % (3.3-12.3); Neutrophils % 80.1 % (41.7-73.7); Nucleated Red Blood Cells % 0.2 % (0-0); Platelets 207 thou/uL (152-406); RBC Red Blood Cell Count 3.65 M/uL (4.33-5.43); Red Cell Distribution Width 15.7 % (12.1-15.2)
[2024-07-08 18:07] LABS: Albumin 3.4 g/dL (3.4-5.0); Albumin/Globulin Ratio 0.8 (1.1-1.8); Alkaline Phosphatase 85 U/L (45-117); Anion Gap 13.5 mEq/L (5.0-15.0); BUN Blood Urea Nitrogen 39 mg/dL (7-18); Bicarbonate 26 mEq/L (21-32); Bilirubin Direct 0.2 mg/dL (0-0.2); Bilirubin Indirect, Calculated 0.5 mg/dL (0.2-0.8); Bilirubin Total 0.7 mg/dL (0.2-1.0); Globulin 4.1 g/dL (2.3-3.5); Glomerular Filtration Rate 4 ml/min (=/>90); Glucose Level 103 mg/dL (74-106); Potassium 4.5 mEq/L (3.5-5.1); Protein, Total 7.5 g/dL (6.4-8.2); Sodium Level 135 mEq/L (136-145)
[2024-07-08 18:09] LABS: ALT/SGPT < 14 U/L (16-61); AST/SGOT < 10 U/L (15-37)
[2024-07-08 18:11] LABS: Troponin High Sensitivity 79.6 pg/mL (<58.9)
--- NOTE | 2024-07-08 18:16 | RAD REPORT ---
EXAMINATION: ONE VIEW CHEST XR CLINICAL INDICATION: chills TECHNIQUE: Frontal chest projection is submitted. Examination is limited by patient positioning and t echnique. COMPARISON: 01/12/2024 FINDINGS: The lungs are well inflated and clear. The heart is moderately enlarged. Right-sided venous catheters tip in SVC. No displaced fractures identified. IMPRESSION: No acute intrathoracic abnormalities.
--- NOTE | 2024-07-08 20:31 | ER ---
Nurse's Notes [facility] Name: Zander Melvin Age: 63 yrs Sex: Male : 1960 Arrival Date: 07/08/2024 Time: 16:47 Bed 16 Private MD: Diagnosis: Chills (without fever) Presentation: 07/08 16:52 Chief complaint: Patient states: Chills and fatigue that began during dialysis. ss Coronavirus screen: Client denies travel out of the [place] in the last 14 days. Ebola Screen: Patient denies exposure to infectious person. Patient denies travel to an Ebola-affected area in the 21 days before illness onset. Initial Sepsis Screen: Does the patient meet any 2 criteria? No. Patient's initial sepsis screen is negative. Does the patient have a suspected source of infection? No. Patient's initial sepsis screen is negative. Risk Assessment: Do you want to hurt yourself or someone else? Patient reports no desire to harm self or others. Onset of symptoms was July 08, 2024. 16:52 Method Of Arrival: EMS: [facility] 16:52 Acuity: JAMES 3 Historical: - Allergies: 16:54 No Known Allergies; ss - PMHx: 16:54 End stage renal disease; Hypertensive disorder; HD T Sun; - PSHx: 16:54 I\T\D facial abscess; ss - Infectious Disease History:: Denies. - Social history:: Smoking status: Patient denies any tobacco usage or history of. - Family history:: not pertinent. Screenin:45 [facility] ED Fall Risk Assessment (Adult) History of falling in the last 3 months, db including since admission No falls in past 3 months (0 pts) Confusion or Disorientation No (0 pts) Intoxicated or Sedated No (0 pts) Impaired Gait No (0 pts) Mobility Assist Device Used No (0 pt) Altered Elimination No (0 pt) Score/Fall Risk Level 0 - 2 = Low Risk Oriented to surroundings, Maintained a safe environment. Abuse screen: Denies threats or abuse. Denies injuries from another. Nutritional screening: No deficits noted. Tuberculosis screening: No symptoms or risk factors identified. Assessment: 16:59 Reassessment: Patient appears in no apparent distress at this time. Patient and/or db family updated on plan of care and expected duration. Pain level reassessed. Patient is alert, oriented x 3, equal unlabored respirations, skin warm/dry/pink. 20:22 Reassessment: Patient appears in no apparent distress at this time. Patient and/or jb4 family updated on plan of care and expected duration. Pain level reassessed. Patient is alert, oriented x 3, equal unlabored respirations, skin warm/dry/pink. Vital Signs: 16:52 BP 140 / 89; Pulse 86; Resp 16; Temp 99.1(O); Pulse Ox 98% on R/A; Weight 104.33 kg; ss Height 5 ft. 11 in. ; 17:00 BP 144 / 88; Pulse 87; Resp 16; Pulse Ox 96% on R/A; db 20:22 BP 138 / 80; Pulse 68; Resp 16; Pulse Ox 98% on R/A; jb4 16:52 Body Mass Index 32.08 (104.33 kg, 180.34 cm) ED Course: 16:52 Patient arrived in ED. ss 16:52 Terry Moulton MD is Attending Physician. rt 16:53 Kallie Dobbs, VALERIA is Primary Nurse. db 16:54 Triage completed. ss 16:54 Arm band placed on right wrist. ss 17:15 Missed attempt(s): 22 gauge in right wrist. Bleeding controlled, band aid applied, db catheter tip intact. 17:27 Initial lab(s) drawn, by me, sent to lab. EKG done, reviewed by Terry Moulton MD. db Inserted saline lock: 20 gauge in right antecubital area, using aseptic technique. Blood collected. Flushed with 10 mL NS. 17:44 Patient has correct armband on for positive identification. Bed in low position. Call db light in reach. Side rails up X 1. Pulse ox on. NIBP on. Warm blanket given. 17:52 XRAY Chest (1 view) In Process Unspecified. EDMS 20:46 No provider procedures requiring assistance completed. IV discontinued, intact, marty bleeding controlled, No redness/swelling at site. Pressure dressing applied. Administered Medications: No medications were administered Medication: 17:45 VIS not applicable for this client. db Outcome: 20:30 Discharge ordered by . rt 20:46 Discharged to home via wheelchair, with friend, marty 20:46 Condition: stable 20:46 Discharge instructions given to patient, Instructed on discharge instructions, follow up and referral plans. Demonstrated understanding of instructions, follow-up care, 20:47 Patient left the ED. jb4 Signatures: Dispatcher [employer] Blossom Veliz, RN VALERIA ss Freedom Snyder RN RN jb4 Kallie Dobbs RN RN db [place], Ryan, MD MD rt Corrections: (The following items were deleted from the chart) 16:55 16:54 PMHx: dialysis TTS; [facility]
--- NOTE | 2024-07-08 20:31 | EDPHYS ---
Physician Documentation [facility] Name: Zander Melvin Age: 63 yrs Sex: Male : 1960 Arrival Date: 07/08/2024 Time: 16:47 Bed 16 Private MD: ED Physician Terry Moulton HPI: 07/08 17:30 This 63 yrs old Black Male presents to ER via EMS with complaints of Fatigue. rt 17:47 Patient presents to the ED with chills that occurred about an hour into dialysis. rt Patient finishes dialysis session, states that the chills have since resolved. Denies other acute complaints at this time, symptoms are moderate in severity, no other aggravating or alleviating factors.. Historical: - Allergies: 16:54 No Known Allergies; ss - PMHx: 16:54 End stage renal disease; Hypertensive disorder; HD T TH SAT; ss - PSHx: 16:54 I\T\D facial abscess; ss - Infectious Disease History:: Denies. - Social history:: Smoking status: Patient denies any tobacco usage or history of. - Family history:: not pertinent. ROS: 17:47 Cardiovascular: Negative for chest pain, palpitations, and edema, Respiratory: Negative rt for shortness of breath, cough, wheezing, and pleuritic chest pain, MS/Extremity: Negative for injury and deformity, Skin: Negative for injury, rash, and discoloration, Neuro: Negative for headache, weakness, numbness, tingling, and seizure, 17:47 Constitutional: Positive for chills, fatigue, Exam: 17:47 Constitutional: This is a well developed, well nourished patient who is awake, alert, rt and in no acute distress. Head/Face: Normocephalic, atraumatic. Cardiovascular: Regular rate and rhythm with a normal S1 and S2. No gallops, murmurs, or rubs. Normal PMI, no JVD. No pulse deficits. Respiratory: Lungs have equal breath sounds bilaterally, clear to auscultation and percussion. No rales, rhonchi or wheezes noted. No increased work of breathing, no retractions or nasal flaring. Abdomen/GI: Soft, non-tender, with normal bowel sounds. No distension or tympany. No guarding or rebound. No evidence of tenderness throughout. Skin: Warm, dry with normal turgor. Normal color with no rashes, no lesions, and no evidence of cellulitis. 17:47 Chest/axilla: Dialysis catheter noted to the right upper chest. 17:48 ECG was reviewed by the Attending Physician. rt Vital Signs: 16:52 BP 140 / 89; Pulse 86; Resp 16; Temp 99.1(O); Pulse Ox 98% on R/A; Weight 104.33 kg; ss Height 5 ft. 11 in. ; 17:00 BP 144 / 88; Pulse 87; Resp 16; Pulse Ox 96% on R/A; db 20:22 BP 138 / 80; Pulse 68; Resp 16; Pulse Ox 98% on R/A; jb4 16:52 Body Mass Index 32.08 (104.33 kg, 180.34 cm) ss MDM: 16:56 Medical Screening Exam initiated rt 20:39 Differential Diagnosis Electrolyte disturbance, ACS, renal failure, fever, viral rt syndrome. Data reviewed: vital signs, nurses notes, lab test result(s), EKG, radiologic studies. Consideration of Admission/Observation Escalation of care including admission/observation considered. Patient with chronic troponin leak, likely secondary to ESRD, troponin is elevated but at baseline, repeat troponin shows no changes, patient's symptoms have resolved, rest of workup is at baseline, no indications for admission at this time, stable for outpatient care, return precautions discussed.. Independent interpretation of the following test(s) in the Emergency Department X-Ray: My interpretation is No infiltrate seen on interpretation of x-ray images. Care significantly affected by the following chronic conditions: Chronic Kidney Disease. Counseling: I had a detailed discussion with the patient and/or guardian regarding the historical points, exam findings, and any diagnostic results supporting the discharge/admit diagnosis, lab results, radiology results, the need for outpatient follow up, to return to the emergency department if symptoms worsen or persist or if there are any questions or concerns that arise at home. Response to treatment: the patient's symptoms have resolved after treatment. 07/08 17:07 Order name: Basic Metabolic Panel; Complete Time: 18:12 rt 07/08 17:07 Order name: CBC with Diff; Complete Time: 18:12 rt 07/08 17:07 Order name: LFT's; Complete Time: 18:12 rt 07/08 17:07 Order name: Troponin HS; Complete Time: 18:12 rt 07/08 19:26 Order name: Troponin High Sensitivity; Complete Time: 20:28 rt 07/08 17:07 Order name: XRAY Chest (1 view); Complete Time: 18:23 rt 07/08 17:07 Order name: Cardiac monitoring; Complete Time: 17:30 rt 07/08 17:07 Order name: EKG - Nurse/Tech; Complete Time: 17:30 rt 07/08 17:07 Order name: IV Saline Lock; Complete Time: 17:30 rt 07/08 17:07 Order name: Labs collected and sent; Complete Time: 17:30 rt 07/08 17:07 Order name: O2 Per Protocol; Complete Time: :30 rt 07/08 17:07 Order name: O2 Sat Monitoring; Complete Time: 17:30 rt EC:48 Rate is 84 beats/min. Rhythm is regular, Normal Sinus Rhythm with No ectopy, LVH with rt repolarization abnormality. Left axis deviation noted. [place] interval is normal. QRS interval is normal. QT interval is normal. No Q waves. Administered Medications: No medications were administered Disposition Summary: 07/08/24 20:30 Discharge Ordered Notes: Location: Home rt Problem: new rt Symptoms: have improved rt Condition: Stable rt Diagnosis - Chills (without fever) rt Followup: rt - With: Private Physician - When: 2 - 3 days - Reason: Discharge Instructions: - Discharge Summary Sheet rt - Dialysis rt Forms: - Medication Reconciliation Form rt - Antibiotic Education rt - Prescription Opioid Use rt - Patient Portal Instructions rt - Leadership Thank You Letter rt Signatures: Dispatcher [employer] EDBlossom Dixon RN RN Terry Araujo MD MD rt Corrections: (The following items were deleted from the chart) 16:55 16:54 PMHx: dialysis TTS; ss 17:08 17:08 Chest Single View+RAD.RAD.[email or web address] ordered. EDMS EDMS 19:26 19:26 Troponin High Sensitivity+C.LAB.BRZ ordered. EDMS EDMS
[2024-07-08 21:52] VITALS: TEMP 99.1
[2024-07-08 21:55] VITALS: BP 138/80; O2SAT 98
--- NOTE | 2024-07-09 11:14 | EKG ---
Test Date: 2024-07-08 Test Time: 17:23:08 Final Inspector Movement Assembly: VIJAY MEASUREMENT RESULTS: Intervals: Rate: 84 FL: 164 QRSD: 110 QT: 378 QTc: 446 [place]: P: 49 FL: 164 QRS: -38 T: 98 INTERPRETIVE STATEMENTS: Normal sinus rhythm Possible Left atrial enlargement Left axis deviation Left ventricular hypertrophy with repolarization abnormality Abnormal ECG Compared to ECG 01/03/2024 19:01:52 Left-axis deviation now present Left anterior fascicular block no longer present Electronically Signed On 07-09-24 11:12:45 CDT by Davidson Ordonez
== END 2024-07-08 20:47 | disposition home or self-care (01) ==
LOC: ER 16:47
DX: R68.83 Chills (without fever) (principal); R53.83 Other fatigue; N18.6 End stage renal disease; Z99.2 Dependence on renal dialysis
CPT/HCPCS: 36415; 71045; 80048; 80076; 84484; 85025; 93005; 99284